=== PATIENT | female | born 1950 | race Caucasian/White ===

== ENCOUNTER 2017-01-16 15:14 | Inpatient (IN) | payer MEDICARE, MEDICAID ==
[~2017-01-16 15:14] MED LIST: Azithromycin 250 MG in Sodium Chloride 0.9% 250 ML IV SCH
[2017-01-16] MEDS ORDERED: Albuterol/Ipratropium 3.0-0.5 MG/3 ML Neb Soln NEB ONE (15:28)
[2017-01-16] MEDS ORDERED: methylPREDNISolone Sodium Succinate 125 MG/2 ML SDV IVPUSH ONE ×2 (15:28→21:00)
[2017-01-16] MEDS ORDERED: Sodium Chloride 0.9% 10 ML Syringe FLUSH PRN (15:28)
[2017-01-16] MEDS ORDERED: Albuterol/Ipratropium 3.0-0.5 MG/3 ML Neb Soln ONE ×2 (15:28)
[2017-01-16] MEDS ORDERED: Albuterol 0.083% 2.5 MG/3 ML Neb Soln NEB ONE (16:07)
--- NOTE | 2017-01-16 16:07 | CR ---
Chest: Portable view of the chest was obtained. Comparison: Previous chest x-ray of 05/20/16. Heart size and mediastinum are within normal limits for portable technique. Lungs are clear. Bony structures are grossly intact. Impression: 1. Nothing acute is appreciated on portable chest x-ray. Diagnostic code #1
--- NOTE | 2017-01-16 16:20 | EDM.PDOC ---
ED HPI GENERAL MEDICAL PROBLEM - General Chief Complaint: Respiratory Problem Stated Complaint: SOB Time Seen by Provider: 01/16/17 15:21 Source of Information: Reports: Patient, RN Notes Reviewed - History of Present Illness INITIAL COMMENTS - FREE TEXT/NARRATIVE: 66-year-old female comes in severely short of breath. She does have history of COPD. She has had worsening cough for the past several days which has become productive of yellowish-green sputum. She has had some chills, not sure about fever. She also states she has had some nasal and sinus congestion and scratchy throat associated with this. Unfortunately she also does continue to smoke. History of insulin-dependent diabetes. No current chest pain other than that associated with frequent coughing. She does use oxygen at night at least some of the time at home. She states that she has had to remain sitting at a chair yesterday and today just to try get enough air. Walking makes the difficulty breathing much worse. She does have history of hypertension. No known history for coronary artery disease. Chest Pain Score (Numeric/FACES): 8 - Related Data Allergies Allergy/AdvReac Type Severity Reaction Status Date / Time insulin detemir Allergy Mild Itching Verified 01/16/17 15:24 [From Levemir] doxycycline Allergy Swelling Verified 01/16/17 15:24 Home Meds: Home Meds Allopurinol [Zyloprim] 0 mg PO DAILY 04/18/15 [History] Aspirin [Sacha Chewable Aspirin] 81 mg PO DAILY 04/18/15 [History] Insulin Glarg,Human.Rec.Analog [LantUS Solostar] 40 units SQ BEDTIME 04/18/15 [ History] Lisinopril 10 mg PO DAILY 04/18/15 [History] Lovastatin 10 mg PO BEDTIME 04/18/15 [History] Meloxicam 15 mg PO DAILY 04/18/15 [History] glipiZIDE [Glipizide ER] 10 mg PO BID 04/18/15 [History] metFORMIN [Glucophage] 1,000 mg PO BID 04/18/15 [History] Fluticasone/Salmeterol [Advair Diskus 250-50] 1 puff INH BID PRN 08/26/15 [ History] Ipratropium/Albuterol Sulfate [Combivent Respimat Inhal [place]] 1 puff INFILT BID PRN 08/26/15 [History] Sertraline [Zoloft] 1 tab PO DAILY 08/26/15 [History] Azelastine HCl [Astepro] 2 inhalation EDE BID #1 ml 08/28/15 [Rx] Acetaminophen/HYDROcodone [[place] 325-5 MG] 1 tab PO Q6H PRN #10 tablet 05/20/16 [Rx] Prednisone [IJD: Prednisone] 20 mg PO QAM #10 tab 05/20/16 [Rx] Past Medical History HEENT History: Reports: Impaired Vision, Retinal Detachment Other HEENT History: states "sometimes" wears eyeglasses. Cardiovascular History: Reports: Hypertension Respiratory History: Reports: Asthma, Bronchitis, Recurrent, COPD, Pneumonia, Recurrent Gastrointestinal History: Reports: None Other Gastrointestinal History: diarrhea past few days Genitourinary History: Reports: Renal Calculus, UTI, Recurrent, Other (See Below ) Other Genitourinary History: states still has kidney stone in one kidney without causing pain or difficulty. 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 GI Surgical History: Reports: Appendectomy, Cholecystectomy Female Surgical History: Reports: Hysterectomy, Lithotripsy/ESWL Musculoskeletal Surgical History: Reports: Arthroscopic Knee, Other (See Below) Social & Family History - Family History Family Medical History: Noncontributory - Tobacco Use Smoking Status *Q: Current Every Day Smoker Years of Tobacco use: 40 Packs/Tins Daily: 1 Used Tobacco, but Quit: No Month Tobacco Last Used: july Second Hand Smoke Exposure: Yes - Caffeine Use Caffeine Use: Reports: Soda - Recreational Drug Use Recreational Drug Use: No ED ROS GENERAL - Review of Systems Review Of Systems: See Below Constitutional: Reports: Fever, Chills (Possible) HEENT: Denies: Throat Pain, Throat Swelling Respiratory: Reports: Shortness of Breath, Wheezing (Severe), Cough, Sputum Cardiovascular: Reports: Chest Pain (With coughing), Lightheadedness, Palpitations Endocrine: Reports: Fatigue GI/Abdominal: Denies: Abdominal Pain, Nausea, Vomiting Musculoskeletal: Reports: No Symptoms Skin: Reports: No Symptoms Neurological: Reports: Dizziness, Difficulty Walking (Due to difficulty breathing) ED EXAM, GENERAL - Physical Exam Exam: See Below General Appearance: Alert, Moderate Distress Eye Exam: Bilateral Eye: PERRL Nose: Normal Inspection Throat/Mouth: Normal Inspection, Normal Oropharynx Head: Atraumatic. No: Facial Swelling Neck: Supple, Full Range of Motion. No: Lymphadenopathy (L), Lymphadenopathy (R ) Respiratory/Chest: Respiratory Distress, Decreased Breath Sounds (Bilateral), Wheezing (Severe), Accessory Muscle Use ( moderate bilateral), Retractions. No : Rales, Rhonchi Cardiovascular: Tachycardia GI/Abdominal: Soft, Non-Tender Back Exam: No: CVA Tenderness (L), CVA Tenderness (R) Extremities: Normal Inspection. No: Pedal Edema, Leg Pain, Increased Warmth, Redness Neurological: Alert, Oriented, No Motor/Sensory Deficits Skin Exam: Warm, Dry, Normal Color EKG INTERPRETATION EKG Date: 01/16/17 Rhythm: NSR Rate (Beats/Min): 105 P-Wave: Present QRS: Normal ST-T: Normal Course - Vital Signs Last Recorded V/S: Last Vital Signs Temp 96.9 F 01/16/17 15:24 Pulse 108 H 01/16/17 15:24 Resp 30 H 01/16/17 15:24 BP 118/80 01/16/17 15:24 Pulse Ox 94 L 01/16/17 16:19 - Orders/Labs/Meds Orders: Active Orders 24 hr Category Date Time Status EKG 12 Lead [EKG Documentation Completion] [RC] STAT Care 01/16/17 15:27 Active Oxygen Therapy [RC] ASDIRECTED Care 01/16/17 15:27 Active Peripheral IV Care [RC] . DIRECTED Care 01/16/17 15:28 Active RT Aerosol Therapy [RC] ASDIRECTED Care 01/16/17 15:28 Active RT Aerosol Therapy [RC] ASDIRECTED Care 01/16/17 16:07 Active Sodium Chloride 0.9% [Saline Flush] Med 01/16/17 15:28 Active 10 ml FLUSH ASDIRECTED PRN Peripheral IV Insertion Adult [OM.PC] Stat Oth 01/16/17 15:28 Ordered Medication Orders Sodium Chloride (Saline Flush) 10 ml FLUSH ASDIRECTED PRN PRN Reason: Keep Vein Open Last Admin: 01/16/17 15:23 Dose: 10 ml Labs: Laboratory Tests 01/16/17 01/16/17 01/16/17 Range/Units 15:25 15:25 15:25 WBC 14.78 H (3.98-10.04) K/mm3 RBC 4.55 (3.98-5.22) M/mm3 Hgb 12.8 (11.2-15.7) gm/L Hct 41.1 (34.1-44.9) % MCV 90.3 (79.4-94.8) fl MCH 28.1 (25.6-32.2) pg MCHC 31.1 L (32.2-35.5) g/dl RDW Std Deviation 49.9 H (36.4-46.3) fL Plt Count 261 (182-369) K/mm3 MPV 10.0 (9.4-12.3) fl Neut % (Auto) 77.7 H (34.0-71.1) % Lymph % (Auto) 13.1 L (19.3-51.7) % [place] % (Auto) 6.2 (4.7-12.5) % Eos % (Auto) 2.6 (0.7-5.8) Baso % (Auto) 0.2 (0.1-1.2) % Neut # (Auto) 11.48 H (1.56-6.13) K/mm3 Lymph # (Auto) 1.94 (1.18-3.74) K/mm3 [place] # (Auto) 0.92 H (0.24-0.36) K/mm3 Eos # (Auto) 0.38 H (0.04-0.36) K/mm3 Baso # (Auto) 0.03 (0.01-0.08) K/mm3 Sodium 137 (136-145) mEq/L Potassium 4.1 (3.5-5.1) mEq/L Chloride 102 (98-107) mEq/L Carbon Dioxide 27 (21-32) mEq/L Anion Gap 12.1 (5-15) BUN 22 H (7-18) mg/dL Creatinine 1.1 H (0.55-1.02) mg/dL Est Cr Clr Drug Dosing 45.27 mL/min Estimated GFR (MDRD) 50 (>60) mL/min BUN/Creatinine Ratio 20.0 H (14-18) Glucose 281 H (80-115) mg/dL Calcium 9.2 (8.5-10.1) mg/dL Total Bilirubin 0.4 (0.2-1.0) mg/dL AST 23 (15-37) U/L ALT 35 (14-59) U/L Alkaline Phosphatase 75 (46-116) U/L C-Reactive Protein 6.6 H* (<1.0) mg/dL Total Protein 7.8 (6.4-8.2) g/dl Albumin 3.6 (3.4-5.0) g/dl Globulin 4.2 gm/dL Albumin/Globulin Ratio 0.9 L (1-2) Meds: Medications Generic Name Dose Route Start Last Admin Trade Name Freq PRN Reason Stop Dose Admin Sodium Chloride 10 ml 01/16/17 15:28 01/16/17 15:23 Saline Flush FLUSH 10 ml ASDIRECTED PRN Administration Keep Vein Open Discontinued Medications Generic Name Dose Route Start Last Admin Trade Name Freq PRN Reason Stop Dose Admin Albuterol 2.5 mg 01/16/17 16:07 01/16/17 16:19 Proventil Neb Soln NEB 01/16/17 16:08 2.5 mg ONETIME ONE Administration Albuterol/Ipratropium Confirm 01/16/17 15:28 01/16/17 15:33 Duoneb 3.0-0.5 Mg/3 Ml Administered 01/16/17 15:29 Not Given Dose 3 ml .ROUTE .STK-MED ONE Albuterol/Ipratropium Confirm 01/16/17 15:28 01/16/17 15:33 Duoneb 3.0-0.5 Mg/3 Ml Administered 01/16/17 15:29 Not Given Dose 3 ml .ROUTE .STK-MED ONE Albuterol/Ipratropium 3 ml 01/16/17 15:28 01/16/17 15:33 Duoneb 3.0-0.5 Mg/3 Ml NEB 01/16/17 15:29 3 ml ONETIME ONE Administration Methylprednisolone Sodium Succinate 125 mg 01/16/17 15:28 01/16/17 15:39 Solu-Medrol IVPUSH 01/16/17 15:29 125 mg ONETIME ONE Administration - Re-Assessments/Exams Free Text/Narrative Re-Assessment/Exam: 01/16/17 16:20 Chest x-ray does not show acute infiltrate, white blood count, C-reactive protein somewhat elevated. Symptoms are compatible with acute exacerbation COPD. Have given a DuoNeb treatment on arrival and also Solu-Medrol 125 mg IV. Repeating an albuterol neb treatment at this time. 01/16/17 17:12 sats of come up with the above treatment and with O2 at 2 L nasal cannula into the 93-95% range. She remains very tachypnic, continues with moderately severe wheezing. She is not a candidate to go home. We'll admit for further treatment. Departure - Departure Time of Disposition: 17:15 Disposition: Admitted As Inpatient 66 Condition: Serious Clinical Impression: COPD exacerbation, Hypoxia - Discharge Information Referrals: Gracy Ashley DO [Primary Care Provider] - Forms: ED Department Discharge ED Communication - Discussed Case With (1) Discussed Case With (1): Admitting Provider (Dr. Bob, decision to admit at about 17:00) - My Orders Last 24 Hours: My Active Orders 01/16/17 15:27 EKG 12 Lead [EKG Documentation Completion] [RC] STAT Oxygen Therapy [RC] ASDIRECTED 01/16/17 15:28 Peripheral IV Care [RC] . DIRECTED RT Aerosol Therapy [RC] ASDIRECTED Sodium Chloride 0.9% [Saline Flush] 10 ml FLUSH ASDIRECTED PRN Peripheral IV Insertion Adult [OM.PC] Stat 01/16/17 16:07 RT Aerosol Therapy [RC] ASDIRECTED - Assessment/Plan Last 24 Hours: My Active Orders 01/16/17 15:27 EKG 12 Lead [EKG Documentation Completion] [RC] STAT Oxygen Therapy [RC] ASDIRECTED 01/16/17 15:28 Peripheral IV Care [RC] . DIRECTED RT Aerosol Therapy [RC] ASDIRECTED Sodium Chloride 0.9% [Saline Flush] 10 ml FLUSH ASDIRECTED PRN Peripheral IV Insertion Adult [OM.PC] Stat 01/16/17 16:07 RT Aerosol Therapy [RC] ASDIRECTED
[2017-01-16] MEDS ORDERED: glipiZIDE 5 MG Tab.ER PO SCH (17:00)
[2017-01-16] MEDS ORDERED: LORazepam 2 MG/ML MDV IVPUSH PRN (17:09)
[2017-01-16] MEDS ORDERED: Metoprolol Tartrate 5 MG/5 ML SDV IVPUSH PRN (17:09)
[2017-01-16] MEDS ORDERED: Azithromycin 250 MG in Sodium Chloride 0.9% 250 ML IV ONE ×2 (17:09→20:15)
[2017-01-16] MEDS ORDERED: hydrALAZINE 20 MG/ML SDV IVPUSH PRN (17:09)
--- NOTE | 2017-01-16 17:09 | PCM.HP ---
H&P History of Present Illness - General Date of Service: 01/16/17 Admit Problem/Dx: COPD Exacerbation Source of Information: Patient, Family, Old Records, Provider, RN Notes Reviewed History Limitations: Reports: No Limitations, Respiratory Distress - History of Present Illness Initial Comments - Free Text/Narative: This is a 66 yo elderly white female with past medical hx/o Impaired Vision, Retinal Detachment, HTN, Hx/o Renal Stones, Hx/o Recurrent UTI, Gout, OA, DM2, Migraines DAVALOS, Anxiety, Depression, and Obesity with BMI of > 30 who presents to the emergency department for worsening shortness of breath. Her chief complaint is associated with productive cough of yellow-greenish sputum, some chills, nasal and sinus congestion, and sore throat. She denies any signs of systemic infection. She carries a history of Asthma/COPD. She is still an smoker. She also carries a history of nocturnal hypoxemia and uses supplemental O2 2L NC at night. Her initial workup in emergency department shows a CBC remarkable for WBC of 14.78, MCHC of 31.1%, RDW of 49.9, neutrophils of 77%, and lymphocytes of 13.1% . Her chemistry is remarkable for BUN of 22, creatinine of 1.1, glucose of 281, and CRP of 6.6. Patient currently is on 3 L nasal cannula with an O2 sat greater than 90%. Her chest x-ray shows no acute abnormal findings. Patient is being admitted for COPD exacerbation. She received initial treatment in the emergency department before she was sent to the floor for further management. She is full code. Chest Pain Score (Numeric/FACES): 8 - Related Data Allergies/Adverse Reactions: Allergies Allergy/AdvReac Type Severity Reaction Status Date / Time insulin detemir Allergy Mild Itching Verified 01/16/17 17:25 [From Levemir] doxycycline Allergy Swelling Verified 01/16/17 17:25 Home Medications: Home Meds Allopurinol [Zyloprim] 0 mg PO DAILY 04/18/15 [History] Aspirin [Sacha Chewable Aspirin] 81 mg PO DAILY 04/18/15 [History] Lisinopril 10 mg PO DAILY 04/18/15 [History] Lovastatin 10 mg PO BEDTIME 04/18/15 [History] Meloxicam 15 mg PO DAILY 04/18/15 [History] glipiZIDE [Glipizide ER] 10 mg PO BID 04/18/15 [History] metFORMIN [Glucophage] 1,000 mg PO BID 04/18/15 [History] Ipratropium/Albuterol Sulfate [Combivent Respimat Inhal [place]] 1 puff INFILT BID PRN 08/26/15 [History] Sertraline [Zoloft] 1 tab PO DAILY 08/26/15 [History] Insulin Degludec [Tresiba Flextouch U-200] 45 unit SQ BEDTIME 01/16/17 [History] Past Medical History HEENT History: Reports: Impaired Vision, Retinal Detachment Other HEENT History: states "sometimes" wears eyeglasses. Cardiovascular History: Reports: Hypertension Respiratory History: Reports: Asthma, Bronchitis, Recurrent, COPD, Pneumonia, Recurrent Gastrointestinal History: Reports: None Other Gastrointestinal History: diarrhea past few days Genitourinary History: Reports: Renal Calculus, UTI, Recurrent, Other (See Below ) Other Genitourinary History: states still has kidney stone in one kidney without causing pain or difficulty. 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 GI Surgical History: Reports: Appendectomy, Cholecystectomy Female Surgical History: Reports: Hysterectomy, Lithotripsy/ESWL Musculoskeletal Surgical History: Reports: Arthroscopic Knee, Other (See Below) Social & Family History - Family History Family Medical History: Noncontributory - Tobacco Use Smoking Status *Q: Current Every Day Smoker Years of Tobacco use: 40 Packs/Tins Daily: 1 Used Tobacco, but Quit: No Month Tobacco Last Used: july Second Hand Smoke Exposure: Yes - Caffeine Use Caffeine Use: Reports: Soda - Recreational Drug Use Recreational Drug Use: No H&P Review of Systems - Review of Systems: Review Of Systems: See Below General: Reports: Other (Sweating at night). Denies: Fever, Chills, Malaise, Weakness, Fatigue Pulmonary: Reports: Shortness of Breath, Cough Cardiovascular: Reports: Dyspnea on Exertion. Denies: Chest Pain, Palpitations , Edema, Lightheadedness Gastrointestinal: Denies: Abdominal Pain, Nausea Genitourinary: Reports: No Symptoms Musculoskeletal: Reports: No Symptoms Skin: Denies: Cyanosis, Pallor Psychiatric: Denies: Depression, Anxiety, Agitation, Hallucinations, Suicidal Ideation Neurological: Denies: Confusion, Difficulty Walking, Weakness, Gait Disturbance Hematologic/Lymphatic: Reports: No Symptoms Immunologic: Reports: No Symptoms Exam - Exam Exam: See Below - Vital Signs Vital Signs: Last Vital Signs Temp 36.1 C 01/16/17 15:24 Pulse 108 H 01/16/17 15:24 Resp 30 H 01/16/17 15:24 BP 118/80 01/16/17 15:24 Pulse Ox 94 L 01/16/17 16:19 Weight: 113.398 kg - Exam Quality Assessment: Supplemental Oxygen General: Alert, Oriented, Cooperative, Mild Distress, Other (Obese) HEENT: Conjunctiva Clear, EACs Clear, EOMI, Hearing Intact, Mucosa Moist & [place] , Nares Patent, Posterior Pharynx Clear, Pupils Equal, Pupils Reactive Neck: Supple, Trachea Midline, Full Range of Motion, Other (no accossory muscle unse). No: JVD Lungs: Normal Respiratory Effort, Wheezing Cardiovascular: Regular Rate, Regular Rhythm, Tachycardia GI/Abdominal Exam: Normal Bowel Sounds, Soft, Non-Tender, No Organomegaly, No Distention, No Abnormal Bruit, No Mass (Female) Exam: Deferred Rectal (Female) Exam: Deferred Back Exam: Normal Inspection, Decreased Range of Motion Extremities: Normal Inspection, Normal Range of Motion, Non-Tender, No Pedal Edema, Normal Capillary Refill Peripheral Pulses: 3+: Posterior Tibial (L), Posterior Tibial (R), Dorsalis Pedis (L), Dorsalis Pedis (R) Skin: Warm, Intact, Moist Neuro Extensive - Mental Status: Oriented x3, Normal Cognition, Memory Intact Neuro Extensive - Motor, Sensory, Reflexes: CN II-XII Intact, Normal Gait Psychiatric: Alert, Normal Affect, Normal Mood - Patient Data Lab Results Last 24 hrs: Laboratory Results - last 24 hr 01/16/17 01/16/17 01/16/17 Range/Units 15:25 15:25 15:25 WBC 14.78 H (3.98-10.04) K/mm3 RBC 4.55 (3.98-5.22) M/mm3 Hgb 12.8 (11.2-15.7) gm/L Hct 41.1 (34.1-44.9) % MCV 90.3 (79.4-94.8) fl MCH 28.1 (25.6-32.2) pg MCHC 31.1 L (32.2-35.5) g/dl RDW Std Deviation 49.9 H (36.4-46.3) fL Plt Count 261 (182-369) K/mm3 MPV 10.0 (9.4-12.3) fl Neut % (Auto) 77.7 H (34.0-71.1) % Lymph % (Auto) 13.1 L (19.3-51.7) % [place] % (Auto) 6.2 (4.7-12.5) % Eos % (Auto) 2.6 (0.7-5.8) Baso % (Auto) 0.2 (0.1-1.2) % Neut # (Auto) 11.48 H (1.56-6.13) K/mm3 Lymph # (Auto) 1.94 (1.18-3.74) K/mm3 [place] # (Auto) 0.92 H (0.24-0.36) K/mm3 Eos # (Auto) 0.38 H (0.04-0.36) K/mm3 Baso # (Auto) 0.03 (0.01-0.08) K/mm3 Sodium 137 (136-145) mEq/L Potassium 4.1 (3.5-5.1) mEq/L Chloride 102 (98-107) mEq/L Carbon Dioxide 27 (21-32) mEq/L Anion Gap 12.1 (5-15) BUN 22 H (7-18) mg/dL Creatinine 1.1 H (0.55-1.02) mg/dL Est Cr Clr Drug Dosing 45.27 mL/min Estimated GFR (MDRD) 50 (>60) mL/min BUN/Creatinine Ratio 20.0 H (14-18) Glucose 281 H (80-115) mg/dL Calcium 9.2 (8.5-10.1) mg/dL Total Bilirubin 0.4 (0.2-1.0) mg/dL AST 23 (15-37) U/L ALT 35 (14-59) U/L Alkaline Phosphatase 75 (46-116) U/L C-Reactive Protein 6.6 H* (<1.0) mg/dL Total Protein 7.8 (6.4-8.2) g/dl Albumin 3.6 (3.4-5.0) g/dl Globulin 4.2 gm/dL Albumin/Globulin Ratio 0.9 L (1-2) Result Diagrams: 01/16/17 15:25 01/16/17 15:25 *Q Meaningful Use (ADM) - VTE *Q VTE Criteria *Q: - Stroke *Q Stroke Criteria *Q: - AMI *Q AMI Criteria *Q: Problem List Initiated/Reviewed/Updated: Yes Orders Last 24hrs: Active Orders 24 hr Category Date Time Status EKG 12 Lead [EKG Documentation Completion] [RC] STAT Care 01/16/17 15:27 Active Oxygen Therapy [RC] ASDIRECTED Care 01/16/17 15:27 Active Peripheral IV Care [RC] . DIRECTED Care 01/16/17 15:28 Active RT Aerosol Therapy [RC] ASDIRECTED Care 01/16/17 15:28 Active RT Aerosol Therapy [RC] ASDIRECTED Care 01/16/17 16:07 Active Sodium Chloride 0.9% [Saline Flush] Med 01/16/17 15:28 Active 10 ml FLUSH ASDIRECTED PRN Peripheral IV Insertion Adult [OM.PC] Stat Oth 01/16/17 15:28 Ordered Medication Orders Sodium Chloride (Saline Flush) 10 ml FLUSH ASDIRECTED PRN PRN Reason: Keep Vein Open Last Admin: 01/16/17 15:23 Dose: 10 ml Assessment/Plan Comment:: Assessment/Plan: Acute: COPD Exacerbation - 2/2 Non-compliance: She stills smokes - Carries 40 yo of smoking - CXR shows no infiltrate - Documented O2 sats all > 90% - She had fast/rapid breathing in ED - IV Steroids, Bronchodilators, IV Magnesium, IV Azithromycin 250 mg Daily, and Supplemental O2 - PRN IV Morphine for Dyspnea Leukocytosis - WBC 14.78 and CRP 6.6 - 2/2 Above DM2 with Hyperglycemia - BS in the 200 range - On Glipizide, Metformin and Insulin regimen - A1C in AM - Accucheck-QID/HS and ISS coverage Tobacco Abuse - Nicotine Patch Daily - Counseled on Smoking Cessation Chronic: Impaired Vision, Retinal Detachment HTN COPD/Asthma Nocturnal Hypoxemia, Uses 2L of O2 at night Hx/o Renal Stones Hx/o Recurrent UTI GOUT OA DM2 Migraines DAVALOS Anxiety Depression Obesity with BMI of 41.6 Plan: Admit to Med-Surg Routine AM Resume Home Meds Supplemental 2L O2 at night PT/OT/RT consult Dietary and Diabetic Education Consult CM/JOSH for d/c planning Code status: 1
[2017-01-16] MEDS ORDERED: Ondansetron 4 MG/2 ML SDV IV PRN (17:10)
[2017-01-16] MEDS ORDERED: Magnesium Hydroxide 400 MG/5 ML Susp 30 ML Cup PO PRN (17:10)
[2017-01-16] MEDS ORDERED: Temazepam 7.5 MG Cap PO PRN (17:10)
[2017-01-16] MEDS ORDERED: LORazepam 2 MG/ML MDV IV PRN (17:10)
[2017-01-16] MEDS ORDERED: Bisacodyl 5 MG Tab PO PRN (17:10)
[2017-01-16] MEDS ORDERED: Docusate Sodium 100 MG Cap PO PRN (17:10)
[2017-01-16] MEDS ORDERED: Promethazine 12.5 MG in Sodium Chloride 0.9% 50 ML IV PRN (17:10)
[2017-01-16] MEDS ORDERED: Polyethylene Glycol 3350 Powder 17 GM Packet PO PRN (17:10)
[2017-01-16] MEDS ORDERED: Magnesium Sulfate/Water 2 GM in Premix Bag 1 BAG IV ONE (17:24)
[2017-01-16] MEDS: methylPREDNISolone Sodium Succinate 125 MG/2 ML SDV IVPUSH SCH (17:53)
[2017-01-16] MEDS: Morphine 2 MG/ML Syringe IVPUSH PRN (18:50)
[2017-01-16] MEDS ORDERED: Nicotine 21 MG/24 Hr Patch TRDERM ONE (19:11)
[2017-01-16] MEDS ORDERED: 50% Dextrose in Water 50 ML Syringe IVPUSH PRN (19:12)
[2017-01-16] MEDS ORDERED: Albuterol 6.7 GM Inhaler INH PRN (19:13)
[2017-01-16] MEDS: Insulin Aspart 100 Units/ML 3 ML Pen SUBCUT SCH ×2 (19:50→22:22)
[2017-01-16] MEDS: Simvastatin 10 MG Tab PO SCH (20:46)
[2017-01-16] MEDS: metFORMIN 500 MG Tab PO SCH (20:46)
[2017-01-16] MEDS: Albuterol/Ipratropium 3.0-0.5 MG/3 ML Neb Soln NEB PRN (21:29)
[2017-01-17] MEDS ORDERED: methylPREDNISolone Sodium Succinate 125 MG/2 ML SDV IVPUSH SCH ×4 (06:00→08:00)
[2017-01-17] MEDS: methylPREDNISolone Sodium Succinate 125 MG/2 ML SDV IVPUSH SCH ×3 (06:46→21:55)
[2017-01-17] MEDS ORDERED: Tiotropium Inhaler 18 MCG Inhalation Powder Cap Kit of 5 INH PRN (08:24)
[2017-01-17] MEDS: INSULIN DEGLUDEC 45 UNIT SUBCUT SCH ×2 (08:27→21:22)
[2017-01-17] MEDS: Albuterol/Ipratropium 3.0-0.5 MG/3 ML Neb Soln NEB PRN ×5 (08:36→23:54)
[2017-01-17] MEDS: Insulin Aspart 100 Units/ML 3 ML Pen SUBCUT SCH ×4 (09:06→21:54)
[2017-01-17] MEDS: Nicotine 21 MG/24 Hr Patch TRDERM SCH (09:07)
[2017-01-17] MEDS: Aspirin 81 MG Tab.EC PO SCH (09:07)
[2017-01-17] MEDS: metFORMIN 500 MG Tab PO SCH ×2 (09:07→21:01)
[2017-01-17] MEDS: Sertraline 50 MG Tab PO SCH (09:08)
[2017-01-17] MEDS: Allopurinol 100 MG Tab PO SCH (09:08)
[2017-01-17] MEDS: Lisinopril 10 MG Tab PO SCH (09:08)
[2017-01-17] MEDS: Morphine 2 MG/ML Syringe IVPUSH PRN ×3 (09:18→21:00)
--- NOTE | 2017-01-17 11:21 | PCM.PN ---
- General Info Date of Service: 01/17/17 Admission Dx/Problem (Free Text): COPD Exacerbation Subjective Update: Follow Up Functional Status: Reports: Pain Controlled, Tolerating Diet, Ambulating, Urinating - Review of Systems General: Denies: Fever, Weakness, Fatigue, Malaise, Chills HEENT: Reports: No Symptoms Pulmonary: Reports: Shortness of Breath, Cough, Wheezing Cardiovascular: Denies: Chest Pain, Dyspnea on Exertion, Edema Gastrointestinal: Denies: Abdominal Pain, Nausea, Vomiting Genitourinary: Reports: No Symptoms Musculoskeletal: Reports: No Symptoms Skin: Denies: Cyanosis Neurological: Denies: Confusion, Pre-Existing Deficit, Difficulty Walking, Weakness, Gait Disturbance Psychiatric: Denies: Depression, Anxiety, Agitation, Cravings, Hallucinations, Suicidal Ideation Systems Review Comment:: No significant overnight or acute issues. She states she feels a little better. She slept good. She has no new complaints. - Patient Data Vitals - Most Recent: Last Vital Signs Temp 36.1 C 01/17/17 07:52 Pulse 75 01/17/17 07:52 Resp 18 01/17/17 07:52 BP 137/64 01/17/17 09:08 Pulse Ox 92 L 01/17/17 11:07 Weight - Most Recent: 109.361 kg I&O - Last 24 Hours: Intake & Output 01/16/17 01/17/17 01/17/17 22:59 06:59 14:59 Intake Total 525 120 Output Total 650 Balance -125 120 Lab Results Last 24 Hours: Laboratory Results - last 24 hr 01/16/17 01/16/17 01/17/17 Range/Units 19:47 20:08 05:37 WBC (3.98-10.04) K/mm3 RBC (3.98-5.22) M/mm3 Hgb (11.2-15.7) gm/L Hct (34.1-44.9) % MCV (79.4-94.8) fl MCH (25.6-32.2) pg MCHC (32.2-35.5) g/dl RDW Std Deviation (36.4-46.3) fL Plt Count (182-369) K/mm3 MPV (9.4-12.3) fl Neut % (Auto) (34.0-71.1) % Lymph % (Auto) (19.3-51.7) % Hall % (Auto) (4.7-12.5) % Eos % (Auto) (0.7-5.8) Baso % (Auto) (0.1-1.2) % Neut # (Auto) (1.56-6.13) K/mm3 Lymph # (Auto) (1.18-3.74) K/mm3 Hall # (Auto) (0.24-0.36) K/mm3 Eos # (Auto) (0.04-0.36) K/mm3 Baso # (Auto) (0.01-0.08) K/mm3 Manual Slide Review Sodium 137 (136-145) mEq/L Potassium 5.0 (3.5-5.1) mEq/L Chloride 102 (98-107) mEq/L Carbon Dioxide 23 (21-32) mEq/L Anion Gap 17.0 H (5-15) BUN 24 H (7-18) mg/dL Creatinine 1.0 (0.55-1.02) mg/dL Est Cr Clr Drug Dosing 49.80 mL/min Estimated GFR (MDRD) 55 (>60) mL/min BUN/Creatinine Ratio 24.0 H (14-18) Glucose 220 H (80-115) mg/dL POC Glucose 251 H 259 H (80-115) mg/dL Hemoglobin A1c (4.50-6.20) % Calcium 9.3 (8.5-10.1) mg/dL Magnesium 2.1 (1.8-2.4) mg/dl C-Reactive Protein 5.3 H* (<1.0) mg/dL 01/17/17 01/17/17 01/17/17 Range/Units 05:48 05:53 05:53 WBC 11.26 H (3.98-10.04) K/mm3 RBC 4.26 (3.98-5.22) M/mm3 Hgb 12.2 (11.2-15.7) gm/L Hct 38.9 (34.1-44.9) % MCV 91.3 (79.4-94.8) fl MCH 28.6 (25.6-32.2) pg MCHC 31.4 L (32.2-35.5) g/dl RDW Std Deviation 48.5 H (36.4-46.3) fL Plt Count 216 (182-369) K/mm3 MPV 11.2 (9.4-12.3) fl Neut % (Auto) 88.1 H (34.0-71.1) % Lymph % (Auto) 9.3 L (19.3-51.7) % Hall % (Auto) 2.2 L (4.7-12.5) % Eos % (Auto) 0 L (0.7-5.8) Baso % (Auto) 0.1 (0.1-1.2) % Neut # (Auto) 9.92 H (1.56-6.13) K/mm3 Lymph # (Auto) 1.05 L (1.18-3.74) K/mm3 Hall # (Auto) 0.25 (0.24-0.36) K/mm3 Eos # (Auto) 0.00 L (0.04-0.36) K/mm3 Baso # (Auto) 0.01 (0.01-0.08) K/mm3 Manual Slide Review Abnormal smear Sodium (136-145) mEq/L Potassium (3.5-5.1) mEq/L Chloride (98-107) mEq/L Carbon Dioxide (21-32) mEq/L Anion Gap (5-15) BUN (7-18) mg/dL Creatinine (0.55-1.02) mg/dL Est Cr Clr Drug Dosing mL/min Estimated GFR (MDRD) (>60) mL/min BUN/Creatinine Ratio (14-18) Glucose (80-115) mg/dL POC Glucose 200 H (80-115) mg/dL Hemoglobin A1c 7.40 H (4.50-6.20) % Calcium (8.5-10.1) mg/dL Magnesium (1.8-2.4) mg/dl C-Reactive Protein (<1.0) mg/dL 01/17/17 Range/Units 10:55 WBC (3.98-10.04) K/mm3 RBC (3.98-5.22) M/mm3 Hgb (11.2-15.7) gm/L Hct (34.1-44.9) % MCV (79.4-94.8) fl MCH (25.6-32.2) pg MCHC (32.2-35.5) g/dl RDW Std Deviation (36.4-46.3) fL Plt Count (182-369) K/mm3 MPV (9.4-12.3) fl Neut % (Auto) (34.0-71.1) % Lymph % (Auto) (19.3-51.7) % Hall % (Auto) (4.7-12.5) % Eos % (Auto) (0.7-5.8) Baso % (Auto) (0.1-1.2) % Neut # (Auto) (1.56-6.13) K/mm3 Lymph # (Auto) (1.18-3.74) K/mm3 Hall # (Auto) (0.24-0.36) K/mm3 Eos # (Auto) (0.04-0.36) K/mm3 Baso # (Auto) (0.01-0.08) K/mm3 Manual Slide Review Sodium (136-145) mEq/L Potassium (3.5-5.1) mEq/L Chloride (98-107) mEq/L Carbon Dioxide (21-32) mEq/L Anion Gap (5-15) BUN (7-18) mg/dL Creatinine (0.55-1.02) mg/dL Est Cr Clr Drug Dosing mL/min Estimated GFR (MDRD) (>60) mL/min BUN/Creatinine Ratio (14-18) Glucose (80-115) mg/dL POC Glucose 297 H (80-115) mg/dL Hemoglobin A1c (4.50-6.20) % Calcium (8.5-10.1) mg/dL Magnesium (1.8-2.4) mg/dl C-Reactive Protein (<1.0) mg/dL Med Orders - Current: Current Medications Acetaminophen (Tylenol) 650 mg PO Q4H PRN PRN Reason: Pain (Mild 1-3)/fever Hydrocodone Bitart/Acetaminophen ([place] 325-5 Mg) 1 tab PO Q4H PRN PRN Reason: Pain (moderate 4-6) Albuterol (Proventil Hfa) 0 gm INH BID PRN PRN Reason: Dyspnea Albuterol/Ipratropium (Duoneb 3.0-0.5 Mg/3 Ml) 3 ml NEB Q4H PRN PRN Reason: Shortness Of Breath/wheezing Last Admin: 01/17/17 11:07 Dose: 3 ml Allopurinol (Zyloprim) 100 mg PO DAILY [facility] Last Admin: 01/17/17 09:08 Dose: 100 mg Aspirin (Halfprin) 81 mg PO DAILY [facility] Last Admin: 01/17/17 09:07 Dose: 81 mg Bisacodyl (Dulcolax) 5 mg PO DAILY PRN PRN Reason: Constipation Dextrose/Water (Dextrose 50% In Water) 50 ml IVPUSH ASDIRECTED PRN PRN Reason: Hypoglycemia Docusate Sodium (Colace) 100 mg PO BID PRN PRN Reason: Constipation Glipizide (Glucotrol Xl) 10 mg PO BIDMEALS [facility] Hydralazine HCl (Apresoline) 20 mg IVPUSH Q4H PRN PRN Reason: Hypertension Promethazine HCl 12.5 mg/ (Sodium Chloride) 50.5 mls @ 100 mls/hr IV Q6H PRN PRN Reason: Nausea/Vomiting Azithromycin 250 mg/ Sodium (Chloride) 250 mls @ 250 mls/hr IV Q24H [facility] Insulin Aspart (Novolog) 0 unit SUBCUT QIDACANDBED [facility] PRN Reason: Protocol Last Admin: 01/17/17 09:06 Dose: 6 units Lisinopril (Prinivil) 10 mg PO DAILY [facility] Last Admin: 01/17/17 09:08 Dose: 10 mg Lorazepam (Ativan) 2 mg IVPUSH Q4H PRN PRN Reason: Seizures Lorazepam (Ativan) 1 mg IV Q6H PRN PRN Reason: Anxiety Magnesium Hydroxide (Milk Of Magnesia) 30 ml PO Q12H PRN PRN Reason: Constipation Magnesium Sulfate (Pharmacy To Dose - Magnesium Replacement) 1 dose .XX ASDIRECTED [facility] Metformin HCl (Glucophage) 1,000 mg PO BID [facility] Last Admin: 01/17/17 09:07 Dose: 1,000 mg Methylprednisolone Sodium Succinate (Solu-Medrol) 80 mg IVPUSH Q8H [facility] Last Admin: 01/17/17 06:46 Dose: 80 mg Metoprolol Tartrate (Lopressor) 5 mg IVPUSH Q4H PRN PRN Reason: Tachycardia Morphine Sulfate (Morphine) 2 mg IVPUSH Q4H PRN PRN Reason: other Nicotine (Habitrol) 21 mg TRDERM DAILY [facility] Last Admin: 01/17/17 09:07 Dose: 21 mg Ondansetron HCl (Zofran) 4 mg IV Q6H PRN PRN Reason: Nausea/Vomiting Insulin Degludec 45 (Units (Tresiba)) 0 each SUBCUT BEDTIME [facility] Last Admin: 01/17/17 08:27 Dose: Not Given Polyethylene Glycol (Miralax) 17 gm PO DAILY PRN PRN Reason: Constipation Potassium Chloride (Pharmacy To Dose - Potassium Replacement) 1 dose .XX ASDIRECTED [facility] Senna/Docusate Sodium (Senna Plus) 1 tab PO BID PRN PRN Reason: Constipation Sertraline HCl (Zoloft) 50 mg PO DAILY [facility] Last Admin: 01/17/17 09:08 Dose: 50 mg Simvastatin (Zocor) 5 mg PO BEDTIME [facility] Last Admin: 01/16/17 20:46 Dose: 5 mg Sodium Chloride (Saline Flush) 10 ml FLUSH ASDIRECTED PRN PRN Reason: Keep Vein Open Last Admin: 01/16/17 15:23 Dose: 10 ml Temazepam (Restoril) 7.5 mg PO BEDTIME PRN PRN Reason: Sleep Tiotropium [place] (Spiriva Handihaler) 18 mcg INH DAILY PRN PRN Reason: Dyspnea Discontinued Medications Albuterol (Proventil Neb Soln) 2.5 mg NEB ONETIME ONE Stop: 01/16/17 16:08 Last Admin: 01/16/17 16:19 Dose: 2.5 mg Albuterol/Ipratropium (Duoneb 3.0-0.5 Mg/3 Ml) Confirm Administered Dose 3 ml .ROUTE .STK-MED ONE Stop: 01/16/17 15:29 Last Admin: 01/16/17 15:33 Dose: Not Given Albuterol/Ipratropium (Duoneb 3.0-0.5 Mg/3 Ml) Confirm Administered Dose 3 ml .ROUTE .STK-MED ONE Stop: 01/16/17 15:29 Last Admin: 01/16/17 15:33 Dose: Not Given Albuterol/Ipratropium (Duoneb 3.0-0.5 Mg/3 Ml) 3 ml NEB ONETIME ONE Stop: 01/16/17 15:29 Last Admin: 01/16/17 15:33 Dose: 3 ml Azithromycin 250 mg/ Sodium (Chloride) 250 mls @ 250 mls/hr IV ONETIME ONE Stop: 01/16/17 18:08 Last Admin: 01/16/17 20:27 Dose: Not Given Azithromycin 250 mg/ Sodium (Chloride) 250 mls @ 250 mls/hr IV Q24H [facility] Last Admin: 01/16/17 17:53 Dose: Not Given Magnesium Sulfate 2 gm/ Premix 50 mls @ 25 mls/hr IV ONETIME ONE Stop: 01/16/17 19:23 Last Admin: 01/16/17 18:49 Dose: 25 mls/hr Azithromycin 250 mg/ Sodium (Chloride) 250 mls @ 250 mls/hr IV ONETIME ONE Stop: 01/16/17 21:14 Last Admin: 01/16/17 20:46 Dose: 250 mls/hr Methylprednisolone Sodium Succinate (Solu-Medrol) 125 mg IVPUSH ONETIME ONE Stop: 01/16/17 15:29 Last Admin: 01/16/17 15:39 Dose: 125 mg Methylprednisolone Sodium Succinate (Solu-Medrol) 125 mg IVPUSH ONETIME ONE Stop: 01/16/17 21:01 Last Admin: 01/16/17 20:46 Dose: 125 mg Methylprednisolone Sodium Succinate (Solu-Medrol) 125 mg IVPUSH Q8H [facility] Last Admin: 01/16/17 17:53 Dose: Not Given Methylprednisolone Sodium Succinate (Solu-Medrol) 125 mg IVPUSH Q8H [facility] Methylprednisolone Sodium Succinate (Solu-Medrol) 80 mg IVPUSH Q8H [facility] Methylprednisolone Sodium Succinate (Solu-Medrol) 125 mg IVPUSH Q8H [facility] Methylprednisolone Sodium Succinate (Solu-Medrol) 80 mg IVPUSH Q8H [facility] Morphine Sulfate (Morphine) 1 mg IVPUSH Q4H PRN PRN Reason: Other Stop: 01/17/17 17:13 Last Admin: 01/17/17 09:18 Dose: 1 mg Nicotine (Habitrol) 21 mg TRDERM ONETIME ONE Stop: 01/16/17 19:12 Last Admin: 01/16/17 19:53 Dose: 21 mg - Exam Quality Assessment: Supplemental Oxygen General: Alert, Oriented, Cooperative, No Acute Distress, Other (Obese) HEENT: Pupils Equal, Pupils Reactive, EOMI, Mucous Membr. Moist/[place] Neck: Supple, Trachea Midline, No JVD, Other (short and thick) Lungs: Wheezing, Other (Audible wheezing). No: Normal Respiratory Effort Cardiovascular: Regular Rate, Regular Rhythm GI/Abdominal Exam: Normal Bowel Sounds, Soft, Non-Tender, No Organomegaly, No Distention, No Abnormal Bruit, No Mass (Female) Exam: Deferred Back Exam: Normal Inspection, Decreased Range of Motion Extremities: Normal Inspection, Normal Range of Motion, Non-Tender, No Pedal Edema, Normal Capillary Refill Peripheral Pulses: 2+: Dorsalis Pedis (L), Dorsalis Pedis (R) Skin: Warm, Dry, Intact Neurological: No New Focal Deficit Psy/Mental Status: Alert, Normal Affect, Normal Mood. No: Anxious, Depressed, Agitated, Suicidal Ideation, Homicidal Ideation, Hallucinations, Withdrawal Symptoms - Problem List Review Problem List Initiated/Reviewed/Updated: Yes - My Orders Last 24 Hours: My Active Orders 01/16/17 17:00 glipiZIDE [Glucotrol XL] 10 mg PO BIDMEALS 01/16/17 18:34 Pulse Oximetry Continuous Monitoring [OM.PC] Routine 01/16/17 19:12 Blood Glucose Check, Bedside [RC] QIDACANDBED Dextrose 50% in Water 50 ml IVPUSH ASDIRECTED PRN 01/16/17 19:13 Albuterol [Proventil HFA] 0 gm INH BID PRN 01/16/17 19:15 Insulin Aspart [NovoLOG] See Protocol SUBCUT QIDACANDBED 01/16/17 21:00 Patient's Own Medication [Ptom] 0 each SUBCUT BEDTIME Simvastatin [Zocor] 5 mg PO BEDTIME metFORMIN [Glucophage] 1,000 mg PO BID 01/16/17 23:22 Consult to Streetcar Dispatcher [Consult to Diabetic Nurse Specialist] [CONS] Routine Consult to Coke Inspector [CONS] Routine 01/17/17 06:00 methylPREDNISolone Sod Succ [Solu-MEDROL] 80 mg IVPUSH Q8H 01/17/17 08:24 Tiotropium [Spiriva HandiHaler] 18 mcg INH DAILY PRN 01/17/17 09:00 Allopurinol [Zyloprim] 100 mg PO DAILY Aspirin [Halfprin] 81 mg PO DAILY Lisinopril [Prinivil] 10 mg PO DAILY Nicotine [Habitrol] 21 mg TRDERM DAILY Sertraline [Zoloft] 50 mg PO DAILY 01/17/17 11:11 Morphine 2 mg IVPUSH Q4H PRN - Plan Plan:: Assessment/Plan: Acute: COPD Exacerbation, Marginally Improved - 2/2 Non-compliance: She stills smokes - Carries 40 yo of smoking - CXR shows no infiltrate - Documented O2 sats all > 90% - She had fast/rapid breathing in ED, improved respiratory rate - Continue IV Steroids, Bronchodilators, IV Azithromycin 250 mg Daily, and Supplemental O2 - Mag-Ox 400 mg po BID first dose tonight - PRN IV Morphine for Dyspnea-increased Morphine dose to 2 mg from 1 mg Leukocytosis - WBC 14.78 ---> 11.26 - CRP 6.6 ---> 5.3 - 2/2 Above DM2 with Hyperglycemia - BS in the 200 range - On Glipizide, Metformin and Insulin regimen - A1C is 7.40 - Accucheck-QID/HS and ISS coverage Tobacco Abuse - Nicotine Patch Daily - Counseled on Smoking Cessation Chronic: Impaired Vision, Retinal Detachment HTN COPD/Asthma Nocturnal Hypoxemia, Uses 2L of O2 at night Hx/o Renal Stones Hx/o Recurrent UTI GOUT OA DM2 Migraines DAVALOS Anxiety Depression Obesity with BMI of 41.6 Plan: She is essentially although she states she feels better Routine AM Continue current treatment Consider Aminophylline drip if no response to current treatment Continue PT/OT/RT Dietary and Diabetic Education Consult CM/SW for d/c planning Code status: 1
[2017-01-17] MEDS: Azithromycin 250 MG in Sodium Chloride 0.9% 250 ML IV SCH (17:18)
[2017-01-17] MEDS: glipiZIDE 5 MG Tab.ER PO SCH (17:18)
--- NOTE | 2017-01-17 18:19 | PCM.SN ---
- Free Text/Narrative Note: Patient seen and examined at bedside. She is breathing better and w/o audible wheezing. Morphine did help a lot with her shortness of breath/dyspnea. Will continue to closely monitor her for impending respiratory distress/failure.
[2017-01-17] MEDS: Magnesium Oxide 400 MG Tab PO SCH (21:01)
[2017-01-17] MEDS: Simvastatin 10 MG Tab PO SCH (21:01)
[2017-01-18] MEDS: Morphine 2 MG/ML Syringe IVPUSH PRN ×4 (01:27→21:40)
[2017-01-18] MEDS: methylPREDNISolone Sodium Succinate 125 MG/2 ML SDV IVPUSH SCH ×3 (06:49→21:34)
[2017-01-18] MEDS: glipiZIDE 5 MG Tab.ER PO SCH ×2 (06:49→17:03)
[2017-01-18] MEDS: Insulin Aspart 100 Units/ML 3 ML Pen SUBCUT SCH ×5 (06:54→22:21)
[2017-01-18] MEDS: Albuterol/Ipratropium 3.0-0.5 MG/3 ML Neb Soln NEB PRN ×4 (07:32→20:26)
--- NOTE | 2017-01-18 08:33 | CR ---
Chest: Portable view of the chest was obtained. Comparison: Previous chest x-ray of 01/16/17. Heart size and mediastinum are within normal limits for portable technique. Slight increased density is noted within the left midlung most likely representing atelectasis. Central lung markings are mildly increased which appear stable. Bony structures are grossly intact. Impression: 1. Slight increased density of the left midlung most likely representing atelectasis. 2. Other findings which are felt to be stable from previous chest x-ray. Nothing acute is appreciated. Diagnostic code #2
--- NOTE | 2017-01-18 09:37 | PCM.PN ---
<Carri Williamson - Last Filed: 01/18/17 12:02> - General Info Date of Service: 01/18/17 Functional Status: Reports: Pain Controlled, Ambulating - Review of Systems General: Reports: No Symptoms HEENT: Reports: Headaches (temporal bilateral and in occipital region) Pulmonary: Reports: Shortness of Breath, Cough (worse at night), Sputum Cardiovascular: Reports: No Symptoms Gastrointestinal: Reports: No Symptoms Genitourinary: Reports: No Symptoms Musculoskeletal: Reports: Other (pain anterior lower left ribcage. Pain is worse when she coughs) Skin: Reports: No Symptoms Neurological: Reports: No Symptoms Psychiatric: Reports: No Symptoms Systems Review Comment:: She states she did not sleep well last night due to the shortness of breath and coughing. She feels that the cough is worse at night. She has been producing yellow sputum. She was able to ambulate through the halls this morning. She has had pain on her left anterior lower ribcage that is worse when she coughs. This started before she presented to the ER. She says she has had headaches off and on since coming to the hospital. Today the headache is in her temporal region bilaterally and in her occipital region. She says the morphine sometimes helps with this pain. - Patient Data Vitals - Most Recent: Last Vital Signs Temp 98.6 F 01/18/17 07:44 Pulse 86 01/18/17 07:44 Resp 14 01/18/17 07:44 BP 132/89 01/18/17 07:44 Pulse Ox 94 L 01/18/17 07:44 Weight - Most Recent: 110.903 kg I&O - Last 24 Hours: Intake & Output 01/17/17 01/18/17 01/18/17 22:59 06:59 14:59 Intake Total 1200 950 Output Total 400 350 Balance 800 600 Lab Results Last 24 Hours: Laboratory Results - last 24 hr 01/17/17 01/17/17 01/17/17 Range/Units 10:55 16:33 21:05 WBC (3.98-10.04) K/mm3 RBC (3.98-5.22) M/mm3 Hgb (11.2-15.7) gm/L Hct (34.1-44.9) % MCV (79.4-94.8) fl MCH (25.6-32.2) pg MCHC (32.2-35.5) g/dl RDW Std Deviation (36.4-46.3) fL Plt Count (182-369) K/mm3 MPV (9.4-12.3) fl Neut % (Auto) (34.0-71.1) % Lymph % (Auto) (19.3-51.7) % [place] % (Auto) (4.7-12.5) % Eos % (Auto) (0.7-5.8) Baso % (Auto) (0.1-1.2) % Neut # (Auto) (1.56-6.13) K/mm3 Lymph # (Auto) (1.18-3.74) K/mm3 [place] # (Auto) (0.24-0.36) K/mm3 Eos # (Auto) (0.04-0.36) K/mm3 Baso # (Auto) (0.01-0.08) K/mm3 Manual Slide Review Sodium (136-145) mEq/L Potassium (3.5-5.1) mEq/L Chloride (98-107) mEq/L Carbon Dioxide (21-32) mEq/L Anion Gap (5-15) BUN (7-18) mg/dL Creatinine (0.55-1.02) mg/dL Est Cr Clr Drug Dosing mL/min Estimated GFR (MDRD) (>60) mL/min BUN/Creatinine Ratio (14-18) Glucose (80-115) mg/dL POC Glucose 297 H 216 H 246 H (80-115) mg/dL Calcium (8.5-10.1) mg/dL Magnesium (1.8-2.4) mg/dl C-Reactive Protein (<1.0) mg/dL 01/18/17 01/18/17 01/18/17 Range/Units 05:22 05:22 06:18 WBC 17.29 H (3.98-10.04) K/mm3 RBC 4.09 (3.98-5.22) M/mm3 Hgb 11.6 (11.2-15.7) gm/L Hct 37.3 (34.1-44.9) % MCV 91.2 (79.4-94.8) fl MCH 28.4 (25.6-32.2) pg MCHC 31.1 L (32.2-35.5) g/dl RDW Std Deviation 49.0 H (36.4-46.3) fL Plt Count 238 (182-369) K/mm3 MPV 10.9 (9.4-12.3) fl Neut % (Auto) 90.6 H (34.0-71.1) % Lymph % (Auto) 5.6 L (19.3-51.7) % [place] % (Auto) 3.5 L (4.7-12.5) % Eos % (Auto) 0 L (0.7-5.8) Baso % (Auto) 0.0 L (0.1-1.2) % Neut # (Auto) 15.66 H (1.56-6.13) K/mm3 Lymph # (Auto) 0.97 L (1.18-3.74) K/mm3 [place] # (Auto) 0.61 H (0.24-0.36) K/mm3 Eos # (Auto) 0.00 L (0.04-0.36) K/mm3 Baso # (Auto) 0.00 L (0.01-0.08) K/mm3 Manual Slide Review Abnormal smear Sodium 137 (136-145) mEq/L Potassium 4.9 (3.5-5.1) mEq/L Chloride 102 (98-107) mEq/L Carbon Dioxide 25 (21-32) mEq/L Anion Gap 14.9 (5-15) BUN 31 H (7-18) mg/dL Creatinine 0.9 (0.55-1.02) mg/dL Est Cr Clr Drug Dosing 55.33 mL/min Estimated GFR (MDRD) > 60 (>60) mL/min BUN/Creatinine Ratio 34.4 H (14-18) Glucose 251 H (80-115) mg/dL POC Glucose 240 H (80-115) mg/dL Calcium 9.2 (8.5-10.1) mg/dL Magnesium 2.0 (1.8-2.4) mg/dl C-Reactive Protein 2.0 H* (<1.0) mg/dL Med Orders - Current: Current Medications Acetaminophen (Tylenol) 650 mg PO Q4H PRN PRN Reason: Pain (Mild 1-3)/fever Hydrocodone Bitart/Acetaminophen ([place] 325-5 Mg) 1 tab PO Q4H PRN PRN Reason: Pain (moderate 4-6) Albuterol (Proventil Hfa) 0 gm INH BID PRN PRN Reason: Dyspnea Albuterol/Ipratropium (Duoneb 3.0-0.5 Mg/3 Ml) 3 ml NEB Q4H PRN PRN Reason: Shortness Of Breath/wheezing Last Admin: 01/18/17 07:32 Dose: 3 ml Allopurinol (Zyloprim) 100 mg PO DAILY [facility] Last Admin: 01/17/17 09:08 Dose: 100 mg Aspirin (Halfprin) 81 mg PO DAILY [facility] Last Admin: 01/17/17 09:07 Dose: 81 mg Bisacodyl (Dulcolax) 5 mg PO DAILY PRN PRN Reason: Constipation Dextrose/Water (Dextrose 50% In Water) 50 ml IVPUSH ASDIRECTED PRN PRN Reason: Hypoglycemia Docusate Sodium (Colace) 100 mg PO BID PRN PRN Reason: Constipation Glipizide (Glucotrol Xl) 10 mg PO BIDMEALS [facility] Last Admin: 01/18/17 06:49 Dose: 10 mg Hydralazine HCl (Apresoline) 20 mg IVPUSH Q4H PRN PRN Reason: Hypertension Promethazine HCl 12.5 mg/ (Sodium Chloride) 50.5 mls @ 100 mls/hr IV Q6H PRN PRN Reason: Nausea/Vomiting Azithromycin 250 mg/ Sodium (Chloride) 250 mls @ 250 mls/hr IV Q24H [facility] Last Admin: 01/17/17 17:18 Dose: 250 mls/hr Insulin Aspart (Novolog) 0 unit SUBCUT QIDACANDBED [facility] PRN Reason: Protocol Last Admin: 01/18/17 06:54 Dose: 6 units Lisinopril (Prinivil) 10 mg PO DAILY [facility] Last Admin: 01/17/17 09:08 Dose: 10 mg Lorazepam (Ativan) 2 mg IVPUSH Q4H PRN PRN Reason: Seizures Lorazepam (Ativan) 1 mg IV Q6H PRN PRN Reason: Anxiety Magnesium Hydroxide (Milk Of Magnesia) 30 ml PO Q12H PRN PRN Reason: Constipation Magnesium Oxide (Magnesium Oxide) 400 mg PO BID [facility] Last Admin: 01/17/17 21:01 Dose: 400 mg Magnesium Sulfate (Pharmacy To Dose - Magnesium Replacement) 1 dose .XX ASDIRECTED [facility] Metformin HCl (Glucophage) 1,000 mg PO BID [facility] Last Admin: 01/17/17 21:01 Dose: 1,000 mg Methylprednisolone Sodium Succinate (Solu-Medrol) 80 mg IVPUSH Q8H [facility] Last Admin: 01/18/17 06:49 Dose: 80 mg Metoprolol Tartrate (Lopressor) 5 mg IVPUSH Q4H PRN PRN Reason: Tachycardia Morphine Sulfate (Morphine) 2 mg IVPUSH Q4H PRN PRN Reason: other Last Admin: 01/18/17 06:58 Dose: 2 mg Nicotine (Habitrol) 21 mg TRDERM DAILY [facility] Last Admin: 01/17/17 09:07 Dose: 21 mg Ondansetron HCl (Zofran) 4 mg IV Q6H PRN PRN Reason: Nausea/Vomiting Insulin Degludec 45 (Units (Tresiba)) 0 each SUBCUT BEDTIME [facility] Last Admin: 01/17/17 21:22 Dose: Not Given Polyethylene Glycol (Miralax) 17 gm PO DAILY PRN PRN Reason: Constipation Potassium Chloride (Pharmacy To Dose - Potassium Replacement) 1 dose .XX ASDIRECTED [facility] Senna/Docusate Sodium (Senna Plus) 1 tab PO BID PRN PRN Reason: Constipation Sertraline HCl (Zoloft) 50 mg PO DAILY [facility] Last Admin: 01/17/17 09:08 Dose: 50 mg Simvastatin (Zocor) 5 mg PO BEDTIME [facility] Last Admin: 01/17/17 21:01 Dose: 5 mg Sodium Chloride (Saline Flush) 10 ml FLUSH ASDIRECTED PRN PRN Reason: Keep Vein Open Last Admin: 01/16/17 15:23 Dose: 10 ml Temazepam (Restoril) 7.5 mg PO BEDTIME PRN PRN Reason: Sleep Tiotropium [place] (Spiriva Handihaler) 18 mcg INH DAILY PRN PRN Reason: Dyspnea Discontinued Medications Albuterol (Proventil Neb Soln) 2.5 mg NEB ONETIME ONE Stop: 01/16/17 16:08 Last Admin: 01/16/17 16:19 Dose: 2.5 mg Albuterol/Ipratropium (Duoneb 3.0-0.5 Mg/3 Ml) Confirm Administered Dose 3 ml .ROUTE .STK-MED ONE Stop: 01/16/17 15:29 Last Admin: 01/16/17 15:33 Dose: Not Given Albuterol/Ipratropium (Duoneb 3.0-0.5 Mg/3 Ml) Confirm Administered Dose 3 ml .ROUTE .STK-MED ONE Stop: 01/16/17 15:29 Last Admin: 01/16/17 15:33 Dose: Not Given Albuterol/Ipratropium (Duoneb 3.0-0.5 Mg/3 Ml) 3 ml NEB ONETIME ONE Stop: 01/16/17 15:29 Last Admin: 01/16/17 15:33 Dose: 3 ml Azithromycin 250 mg/ Sodium (Chloride) 250 mls @ 250 mls/hr IV ONETIME ONE Stop: 01/16/17 18:08 Last Admin: 01/16/17 20:27 Dose: Not Given Azithromycin 250 mg/ Sodium (Chloride) 250 mls @ 250 mls/hr IV Q24H [facility] Last Admin: 01/16/17 17:53 Dose: Not Given Magnesium Sulfate 2 gm/ Premix 50 mls @ 25 mls/hr IV ONETIME ONE Stop: 01/16/17 19:23 Last Admin: 01/16/17 18:49 Dose: 25 mls/hr Azithromycin 250 mg/ Sodium (Chloride) 250 mls @ 250 mls/hr IV ONETIME ONE Stop: 01/16/17 21:14 Last Admin: 01/16/17 20:46 Dose: 250 mls/hr Methylprednisolone Sodium Succinate (Solu-Medrol) 125 mg IVPUSH ONETIME ONE Stop: 01/16/17 15:29 Last Admin: 01/16/17 15:39 Dose: 125 mg Methylprednisolone Sodium Succinate (Solu-Medrol) 125 mg IVPUSH ONETIME ONE Stop: 01/16/17 21:01 Last Admin: 01/16/17 20:46 Dose: 125 mg Methylprednisolone Sodium Succinate (Solu-Medrol) 125 mg IVPUSH Q8H [facility] Last Admin: 01/16/17 17:53 Dose: Not Given Methylprednisolone Sodium Succinate (Solu-Medrol) 125 mg IVPUSH Q8H [place] Methylprednisolone Sodium Succinate (Solu-Medrol) 80 mg IVPUSH Q8H [facility] Methylprednisolone Sodium Succinate (Solu-Medrol) 125 mg IVPUSH Q8H [facility] Methylprednisolone Sodium Succinate (Solu-Medrol) 80 mg IVPUSH Q8H [facility] Morphine Sulfate (Morphine) 1 mg IVPUSH Q4H PRN PRN Reason: Other Stop: 01/17/17 17:13 Last Admin: 01/17/17 09:18 Dose: 1 mg Nicotine (Habitrol) 21 mg TRDERM ONETIME ONE Stop: 01/16/17 19:12 Last Admin: 01/16/17 19:53 Dose: 21 mg - Exam Quality Assessment: Supplemental Oxygen General: Alert, Oriented, Cooperative HEENT: EOMI. No: Pupils Equal (left eye dilated; chronic) Neck: Supple Lungs: Decreased Breath Sounds (left lower lung), Wheezing (expiratory wheezing bilateral) Cardiovascular: Regular Rate, Regular Rhythm GI/Abdominal Exam: Normal Bowel Sounds, Soft, Non-Tender, No Organomegaly, No Distention, No Mass (Female) Exam: Deferred Back Exam: Normal Inspection Extremities: Normal Inspection Skin: Warm, Dry, Intact Neurological: No New Focal Deficit Psy/Mental Status: Alert, Normal Affect, Normal Mood Physical Findings Comments:: She has decreased breath sounds in the lower left lung. She has expiratory wheezing bilaterally. She has tenderness to palpation in the anterior left lower ribcage. Skin over this area is normal, no erythema or swelling. - Problem List Review Problem List Initiated/Reviewed/Updated: Yes - Assessment Assessment:: 1. COPD exacerbation 2. Atelectasis of left lower lung 3. Musculoskeletal pain on anterior left lower ribcage most likely secondary to forceful coughing 4. Diabetes Mellitus type 2 with high glucose levels in the 200's - Plan Plan:: 1. Continue current treatment plan 2. Continue to monitor O2 sat 3. Continue PT/OT and RT 4. Routine care <Lu Bob T - Last Filed: 01/18/17 22:35> - General Info Admission Dx/Problem (Free Text): COPD Exacerbation Subjective Update: Follow Up Functional Status: Reports: Pain Controlled, Tolerating Diet, Ambulating, Urinating - Review of Systems General: Denies: Fever, Weakness, Fatigue, Malaise, Chills HEENT: Reports: Headaches Pulmonary: Reports: Shortness of Breath, Cough, Sputum Cardiovascular: Denies: Chest Pain, Palpitations, Dyspnea on Exertion, Edema, Lightheadedness Gastrointestinal: Denies: Abdominal Pain, Difficulty Swallowing, Nausea, Vomiting Genitourinary: Reports: No Symptoms Musculoskeletal: Reports: Other Skin: Denies: Cyanosis, Jaundice, Mottled, Pallor, Diaphoresis, Pruritis, Rash Neurological: Denies: Confusion, Dizziness, Pre-Existing Deficit, Trouble Speaking, Difficulty Walking, Weakness, Gait Disturbance Psychiatric: Denies: No Symptoms, Confusion, Depression, Mood Lability, Agitation, Cravings, Hallucinations, Suicidal Ideation Systems Review Comment:: No significant overnight or acute issues. She is essentially the same as yesterday. She report HAs with morphine but helps with her breathing. - Patient Data Vitals - Most Recent: Last Vital Signs Temp 36.6 C 01/18/17 14:55 Pulse 96 01/18/17 14:55 Resp 16 01/18/17 14:55 BP 129/55 L 01/18/17 14:55 Pulse Ox 92 L 01/18/17 20:27 I&O - Last 24 Hours: Intake & Output 01/18/17 01/18/17 01/18/17 06:59 14:59 22:59 Intake Total 950 360 950 Output Total 350 2400 Balance 600 360 -1450 Lab Results Last 24 Hours: Laboratory Results - last 24 hr 01/18/17 01/18/17 01/18/17 Range/Units 05:22 05:22 06:18 WBC 17.29 H (3.98-10.04) K/mm3 RBC 4.09 (3.98-5.22) M/mm3 Hgb 11.6 (11.2-15.7) gm/L Hct 37.3 (34.1-44.9) % MCV 91.2 (79.4-94.8) fl MCH 28.4 (25.6-32.2) pg MCHC 31.1 L (32.2-35.5) g/dl RDW Std Deviation 49.0 H (36.4-46.3) fL Plt Count 238 (182-369) K/mm3 MPV 10.9 (9.4-12.3) fl Neut % (Auto) 90.6 H (34.0-71.1) % Lymph % (Auto) 5.6 L (19.3-51.7) % [place] % (Auto) 3.5 L (4.7-12.5) % Eos % (Auto) 0 L (0.7-5.8) Baso % (Auto) 0.0 L (0.1-1.2) % Neut # (Auto) 15.66 H (1.56-6.13) K/mm3 Lymph # (Auto) 0.97 L (1.18-3.74) K/mm3 [place] # (Auto) 0.61 H (0.24-0.36) K/mm3 Eos # (Auto) 0.00 L (0.04-0.36) K/mm3 Baso # (Auto) 0.00 L (0.01-0.08) K/mm3 Manual Slide Review Abnormal smear Sodium 137 (136-145) mEq/L Potassium 4.9 (3.5-5.1) mEq/L Chloride 102 (98-107) mEq/L Carbon Dioxide 25 (21-32) mEq/L Anion Gap 14.9 (5-15) BUN 31 H (7-18) mg/dL Creatinine 0.9 (0.55-1.02) mg/dL Est Cr Clr Drug Dosing 55.33 mL/min Estimated GFR (MDRD) > 60 (>60) mL/min BUN/Creatinine Ratio 34.4 H (14-18) Glucose 251 H (80-115) mg/dL POC Glucose 240 H (80-115) mg/dL Calcium 9.2 (8.5-10.1) mg/dL Magnesium 2.0 (1.8-2.4) mg/dl C-Reactive Protein 2.0 H* (<1.0) mg/dL 01/18/17 01/18/17 01/18/17 Range/Units 11:26 17:00 20:00 WBC (3.98-10.04) K/mm3 RBC (3.98-5.22) M/mm3 Hgb (11.2-15.7) gm/L Hct (34.1-44.9) % MCV (79.4-94.8) fl MCH (25.6-32.2) pg MCHC (32.2-35.5) g/dl RDW Std Deviation (36.4-46.3) fL Plt Count (182-369) K/mm3 MPV (9.4-12.3) fl Neut % (Auto) (34.0-71.1) % Lymph % (Auto) (19.3-51.7) % [place] % (Auto) (4.7-12.5) % Eos % (Auto) (0.7-5.8) Baso % (Auto) (0.1-1.2) % Neut # (Auto) (1.56-6.13) K/mm3 Lymph # (Auto) (1.18-3.74) K/mm3 [place] # (Auto) (0.24-0.36) K/mm3 Eos # (Auto) (0.04-0.36) K/mm3 Baso # (Auto) (0.01-0.08) K/mm3 Manual Slide Review Sodium (136-145) mEq/L Potassium (3.5-5.1) mEq/L Chloride (98-107) mEq/L Carbon Dioxide (21-32) mEq/L Anion Gap (5-15) BUN (7-18) mg/dL Creatinine (0.55-1.02) mg/dL Est Cr Clr Drug Dosing mL/min Estimated GFR (MDRD) (>60) mL/min BUN/Creatinine Ratio (14-18) Glucose (80-115) mg/dL POC Glucose 234 H 287 H 329 H (80-115) mg/dL Calcium (8.5-10.1) mg/dL Magnesium (1.8-2.4) mg/dl C-Reactive Protein (<1.0) mg/dL Med Orders - Current: Current Medications Acetaminophen (Tylenol) 650 mg PO Q4H PRN PRN Reason: Pain (Mild 1-3)/fever Hydrocodone Bitart/Acetaminophen ([place] 325-5 Mg) 1 tab PO Q4H PRN PRN Reason: Pain (moderate 4-6) Albuterol (Proventil Hfa) 0 gm INH BID PRN PRN Reason: Dyspnea Albuterol/Ipratropium (Duoneb 3.0-0.5 Mg/3 Ml) 3 ml NEB Q4H PRN PRN Reason: Shortness Of Breath/wheezing Last Admin: 01/18/17 20:26 Dose: 3 ml Allopurinol (Zyloprim) 100 mg PO DAILY [facility] Last Admin: 01/18/17 10:09 Dose: 100 mg Aspirin (Halfprin) 81 mg PO DAILY [facility] Last Admin: 01/18/17 10:09 Dose: 81 mg Bisacodyl (Dulcolax) 5 mg PO DAILY PRN PRN Reason: Constipation Dextrose/Water (Dextrose 50% In Water) 50 ml IVPUSH ASDIRECTED PRN PRN Reason: Hypoglycemia Docusate Sodium (Colace) 100 mg PO BID PRN PRN Reason: Constipation Glipizide (Glucotrol Xl) 10 mg PO BIDMEALS [facility] Last Admin: 01/18/17 17:03 Dose: 10 mg Hydralazine HCl (Apresoline) 20 mg IVPUSH Q4H PRN PRN Reason: Hypertension Promethazine HCl 12.5 mg/ (Sodium Chloride) 50.5 mls @ 100 mls/hr IV Q6H PRN PRN Reason: Nausea/Vomiting Azithromycin 250 mg/ Sodium (Chloride) 250 mls @ 250 mls/hr IV Q24H [facility] Last Admin: 01/18/17 17:07 Dose: 250 mls/hr Aminophylline 500 mg/ Sodium (Chloride) 500 mls @ 20.833 mls/hr IV ONETIME ONE Stop: 01/19/17 16:59 Last Admin: 01/18/17 17:39 Dose: 20.833 mls/hr Insulin Aspart (Novolog) 0 unit SUBCUT QIDACANDBED [facility] PRN Reason: Protocol Last Admin: 01/18/17 22:21 Dose: Not Given Lisinopril (Prinivil) 10 mg PO DAILY [facility] Last Admin: 01/18/17 10:10 Dose: 10 mg Lorazepam (Ativan) 2 mg IVPUSH Q4H PRN PRN Reason: Seizures Lorazepam (Ativan) 1 mg IV Q6H PRN PRN Reason: Anxiety Magnesium Hydroxide (Milk Of Magnesia) 30 ml PO Q12H PRN PRN Reason: Constipation Magnesium Oxide (Magnesium Oxide) 400 mg PO BID [facility] Last Admin: 01/18/17 22:20 Dose: Not Given Magnesium Sulfate (Pharmacy To Dose - Magnesium Replacement) 1 dose .XX ASDIRECTED [facility] Metformin HCl (Glucophage) 1,000 mg PO BID [facility] Last Admin: 01/18/17 22:20 Dose: Not Given Methylprednisolone Sodium Succinate (Solu-Medrol) 80 mg IVPUSH Q8H [facility] Last Admin: 01/18/17 21:34 Dose: 80 mg Metoprolol Tartrate (Lopressor) 5 mg IVPUSH Q4H PRN PRN Reason: Tachycardia Morphine Sulfate (Morphine) 2 mg IVPUSH Q4H PRN PRN Reason: other Last Admin: 01/18/17 21:40 Dose: 2 mg Nicotine (Habitrol) 21 mg TRDERM DAILY [facility] Last Admin: 01/18/17 10:15 Dose: 21 mg Ondansetron HCl (Zofran) 4 mg IV Q6H PRN PRN Reason: Nausea/Vomiting Insulin Glargine 100 (Units/Ml 3 Ml Pen) 0 each SUBCUT BEDTIME [facility] Last Admin: 01/18/17 20:06 Dose: 45 each Polyethylene Glycol (Miralax) 17 gm PO DAILY PRN PRN Reason: Constipation Potassium Chloride (Pharmacy To Dose - Potassium Replacement) 1 dose .XX ASDIRECTED [facility] Senna/Docusate Sodium (Senna Plus) 1 tab PO BID PRN PRN Reason: Constipation Sertraline HCl (Zoloft) 50 mg PO DAILY [facility] Last Admin: 01/18/17 10:10 Dose: 50 mg Simvastatin (Zocor) 5 mg PO BEDTIME [facility] Last Admin: 01/18/17 22:21 Dose: Not Given Sodium Chloride (Saline Flush) 10 ml FLUSH ASDIRECTED PRN PRN Reason: Keep Vein Open Last Admin: 01/16/17 15:23 Dose: 10 ml Temazepam (Restoril) 7.5 mg PO BEDTIME PRN PRN Reason: Sleep Last Admin: 01/18/17 19:49 Dose: 7.5 mg Theophylline (Theophylline Anhydrous) 200 mg PO BID [facility] Tiotropium [place] (Spiriva Handihaler) 18 mcg INH DAILY PRN PRN Reason: Dyspnea Discontinued Medications Albuterol (Proventil Neb Soln) 2.5 mg NEB ONETIME ONE Stop: 01/16/17 16:08 Last Admin: 01/16/17 16:19 Dose: 2.5 mg Albuterol/Ipratropium (Duoneb 3.0-0.5 Mg/3 Ml) Confirm Administered Dose 3 ml .ROUTE .STK-MED ONE Stop: 01/16/17 15:29 Last Admin: 01/16/17 15:33 Dose: Not Given Albuterol/Ipratropium (Duoneb 3.0-0.5 Mg/3 Ml) Confirm Administered Dose 3 ml .ROUTE .STK-MED ONE Stop: 01/16/17 15:29 Last Admin: 01/16/17 15:33 Dose: Not Given Albuterol/Ipratropium (Duoneb 3.0-0.5 Mg/3 Ml) 3 ml NEB ONETIME ONE Stop: 01/16/17 15:29 Last Admin: 01/16/17 15:33 Dose: 3 ml Azithromycin 250 mg/ Sodium (Chloride) 250 mls @ 250 mls/hr IV ONETIME ONE Stop: 01/16/17 18:08 Last Admin: 01/16/17 20:27 Dose: Not Given Azithromycin 250 mg/ Sodium (Chloride) 250 mls @ 250 mls/hr IV Q24H [facility] Last Admin: 01/16/17 17:53 Dose: Not Given Magnesium Sulfate 2 gm/ Premix 50 mls @ 25 mls/hr IV ONETIME ONE Stop: 01/16/17 19:23 Last Admin: 01/16/17 18:49 Dose: 25 mls/hr Azithromycin 250 mg/ Sodium (Chloride) 250 mls @ 250 mls/hr IV ONETIME ONE Stop: 01/16/17 21:14 Last Admin: 01/16/17 20:46 Dose: 250 mls/hr Aminophylline 325 mg/ Sodium (Chloride) 100 mls @ 200 mls/hr IV ONETIME ONE Stop: 01/18/17 14:59 Last Admin: 01/18/17 14:31 Dose: 200 mls/hr Methylprednisolone Sodium Succinate (Solu-Medrol) 125 mg IVPUSH ONETIME ONE Stop: 01/16/17 15:29 Last Admin: 01/16/17 15:39 Dose: 125 mg Methylprednisolone Sodium Succinate (Solu-Medrol) 125 mg IVPUSH ONETIME ONE Stop: 01/16/17 21:01 Last Admin: 01/16/17 20:46 Dose: 125 mg Methylprednisolone Sodium Succinate (Solu-Medrol) 125 mg IVPUSH Q8H [facility] Last Admin: 01/16/17 17:53 Dose: Not Given Methylprednisolone Sodium Succinate (Solu-Medrol) 125 mg IVPUSH Q8H [facility] Methylprednisolone Sodium Succinate (Solu-Medrol) 80 mg IVPUSH Q8H [facility] Methylprednisolone Sodium Succinate (Solu-Medrol) 125 mg IVPUSH Q8H [facility] Methylprednisolone Sodium Succinate (Solu-Medrol) 80 mg IVPUSH Q8H [facility] Morphine Sulfate (Morphine) 1 mg IVPUSH Q4H PRN PRN Reason: Other Stop: 01/17/17 17:13 Last Admin: 01/17/17 09:18 Dose: 1 mg Nicotine (Habitrol) 21 mg TRDERM ONETIME ONE Stop: 01/16/17 19:12 Last Admin: 01/16/17 19:53 Dose: 21 mg Insulin Degludec 45 (Units (Tresiba)) 0 each SUBCUT BEDTIME [facility] Last Admin: 01/17/17 21:22 Dose: Not Given - Exam Quality Assessment: Supplemental Oxygen General: Alert, Oriented, Cooperative, No Acute Distress HEENT: Pupils Equal, EOMI, Mucous Membr. Moist/[place] Neck: Supple, Trachea Midline, No JVD, No Thyromegaly Lungs: Decreased Breath Sounds, Wheezing. No: Normal Respiratory Effort Cardiovascular: Regular Rate, Regular Rhythm GI/Abdominal Exam: Normal Bowel Sounds, Soft, Non-Tender, No Distention, No Mass (Female) Exam: Deferred Back Exam: Normal Inspection, Decreased Range of Motion Extremities: Normal Inspection, Normal Range of Motion, Non-Tender, No Pedal Edema, Normal Capillary Refill Peripheral Pulses: 2+: Dorsalis Pedis (L), Dorsalis Pedis (R) Skin: Warm, Dry, Intact Neurological: No New Focal Deficit Psy/Mental Status: Alert, Normal Affect, Normal Mood - Problem List Review Problem List Initiated/Reviewed/Updated: Yes - My Orders Last 24 Hours: My Active Orders 01/18/17 17:00 Aminophylline 500 mg Sodium Chloride 0.9% [Normal Saline] 480 ml IV ONETIME 01/18/17 21:00 Patient's Own Medication [Ptom] 0 each SUBCUT BEDTIME 01/19/17 08:00 THEOPHYLLINE [CHEM] Timed 01/19/17 09:00 Theophylline [Theophylline Anhydrous] 200 mg PO BID - Assessment Assessment:: Assessment/Plan: Acute: COPD Exacerbation, Essentially not much improvement - 2/2 Non-compliance: She stills smokes - Carries 40 yo of smoking - CXR shows no infiltrate - Documented O2 sats all > 90% - She had fast/rapid breathing in ED, improved respiratory rate - Continue IV Steroids, Bronchodilators, IV Azithromycin 250 mg Daily, Mag- Ox 400 mg po BIDand Supplemental O2 - PRN IV 2 mg Morphine for Dyspnea - Consider Aminophylline drip later today Leukocytosis - WBC 14.78 ---> 11.26 --> 17.29 - CRP 6.6 ---> 5.3 --> 2.0 - 2/2 Above DM2 with Hyperglycemia - BS in the 200-300a - On Glipizide, Metformin and Insulin regimen - A1C is 7.40 - Accu-check QID/HS - Change ISS level to High dose coverage Tobacco Abuse - Nicotine Patch Daily - Counseled on Smoking Cessation Chronic: Impaired Vision, Retinal Detachment HTN COPD/Asthma Nocturnal Hypoxemia, Uses 2L of O2 at night Hx/o Renal Stones Hx/o Recurrent UTI GOUT OA DM2 Migraines DAVALOS Anxiety Depression Obesity with BMI of 41.6 - Plan Plan:: Plan: She is essentially the same Routine AM Continue current treatment Consider Aminophylline drip later today Continue PT/OT/RT CM/SW for d/c planning Additional orders as above Code status: 1
[2017-01-18] MEDS: metFORMIN 500 MG Tab PO SCH ×3 (10:08→22:20)
[2017-01-18] MEDS: Aspirin 81 MG Tab.EC PO SCH (10:09)
[2017-01-18] MEDS: Allopurinol 100 MG Tab PO SCH (10:09)
[2017-01-18] MEDS: Lisinopril 10 MG Tab PO SCH (10:10)
[2017-01-18] MEDS: Sertraline 50 MG Tab PO SCH (10:10)
[2017-01-18] MEDS: Magnesium Oxide 400 MG Tab PO SCH ×3 (10:10→22:20)
[2017-01-18] MEDS: Nicotine 21 MG/24 Hr Patch TRDERM SCH (10:15)
[2017-01-18] MEDS ORDERED: AMINOPHYLLINE IV ONE (14:30)
[2017-01-18] MEDS ORDERED: SODIUM CHLORIDE 0.9% IV ONE (14:30)
[2017-01-18] MEDS: Azithromycin 250 MG in Sodium Chloride 0.9% 250 ML IV SCH (17:07)
[2017-01-18] MEDS: Simvastatin 10 MG Tab PO SCH ×2 (19:50→22:21)
[2017-01-18] MEDS: INSULIN GLARGINE 100 UNIT/ML SUBCUT SCH (20:06)
[2017-01-19] MEDS: Albuterol/Ipratropium 3.0-0.5 MG/3 ML Neb Soln NEB PRN ×5 (00:30→18:19)
[2017-01-19] MEDS: methylPREDNISolone Sodium Succinate 125 MG/2 ML SDV IVPUSH SCH (06:28)
[2017-01-19] MEDS: glipiZIDE 5 MG Tab.ER PO SCH ×2 (06:30→17:10)
[2017-01-19] MEDS: Insulin Aspart 100 Units/ML 3 ML Pen SUBCUT SCH ×4 (08:21→21:19)
[2017-01-19] MEDS ORDERED: Theophylline 200 MG Tab.ER PO SCH ×3 (09:00→21:00)
--- NOTE | 2017-01-19 09:22 | PCM.PN ---
- General Info Date of Service: 01/19/17 Admission Dx/Problem (Free Text): COPD Exacerbation Patient is seen this morning resting in bed. Appears mildly short of breath and able to talk in 6-7 word sentences before becoming noticeably SOB. States she is still coughing up thick yellow phelgm. Overall she feels she is breathing easier and is improving. Denies c/o pain, moving bowels and passing water without difficulty. I have a long conversation with her about smoking cessation today. Functional Status: Reports: Pain Controlled, Tolerating Diet, Ambulating, Urinating. Denies: New Symptoms - Review of Systems General: Reports: No Symptoms, Weakness, Fatigue. Denies: Fever HEENT: Reports: No Symptoms Pulmonary: Reports: Shortness of Breath, Cough, Sputum, Wheezing. Denies: Pleuritic Chest Pain, Hemoptysis Cardiovascular: Reports: No Symptoms, Dyspnea on Exertion, Lightheadedness ( with coughing fits). Denies: Chest Pain, Palpitations Gastrointestinal: Reports: No Symptoms Genitourinary: Reports: No Symptoms Musculoskeletal: Reports: No Symptoms Skin: Reports: No Symptoms Neurological: Reports: No Symptoms Psychiatric: Reports: No Symptoms - Patient Data Vitals - Most Recent: Last Vital Signs Temp 97.2 F 01/18/17 23:29 Pulse 72 01/19/17 03:55 Resp 36 H 01/19/17 03:55 BP 158/62 H 01/19/17 03:55 Pulse Ox 92 L 01/19/17 05:52 Weight - Most Recent: 244 lb 3.2 oz I&O - Last 24 Hours: Intake & Output 01/18/17 01/19/17 01/19/17 22:59 06:59 14:59 Intake Total 950 1747 Output Total 2400 2100 Balance -1450 -353 Lab Results Last 24 Hours: Laboratory Results - last 24 hr 01/18/17 01/18/17 01/18/17 Range/Units 11:26 17:00 20:00 WBC (3.98-10.04) K/mm3 RBC (3.98-5.22) M/mm3 Hgb (11.2-15.7) gm/L Hct (34.1-44.9) % MCV (79.4-94.8) fl MCH (25.6-32.2) pg MCHC (32.2-35.5) g/dl RDW Std Deviation (36.4-46.3) fL Plt Count (182-369) K/mm3 MPV (9.4-12.3) fl Neut % (Auto) (34.0-71.1) % Lymph % (Auto) (19.3-51.7) % [place] % (Auto) (4.7-12.5) % Eos % (Auto) (0.7-5.8) Baso % (Auto) (0.1-1.2) % Neut # (Auto) (1.56-6.13) K/mm3 Lymph # (Auto) (1.18-3.74) K/mm3 [place] # (Auto) (0.24-0.36) K/mm3 Eos # (Auto) (0.04-0.36) K/mm3 Baso # (Auto) (0.01-0.08) K/mm3 Manual Slide Review Sodium (136-145) mEq/L Potassium (3.5-5.1) mEq/L Chloride (98-107) mEq/L Carbon Dioxide (21-32) mEq/L Anion Gap (5-15) BUN (7-18) mg/dL Creatinine (0.55-1.02) mg/dL Est Cr Clr Drug Dosing mL/min Estimated GFR (MDRD) (>60) mL/min BUN/Creatinine Ratio (14-18) Glucose (80-115) mg/dL POC Glucose 234 H 287 H 329 H (80-115) mg/dL Calcium (8.5-10.1) mg/dL Magnesium (1.8-2.4) mg/dl C-Reactive Protein (<1.0) mg/dL 01/19/17 01/19/17 01/19/17 Range/Units 05:40 05:40 06:27 WBC 14.85 H (3.98-10.04) K/mm3 RBC 4.08 (3.98-5.22) M/mm3 Hgb 11.9 (11.2-15.7) gm/L Hct 37.2 (34.1-44.9) % MCV 91.2 (79.4-94.8) fl MCH 29.2 (25.6-32.2) pg MCHC 32.0 L (32.2-35.5) g/dl RDW Std Deviation 49.3 H (36.4-46.3) fL Plt Count 244 (182-369) K/mm3 MPV 10.2 (9.4-12.3) fl Neut % (Auto) 90.1 H (34.0-71.1) % Lymph % (Auto) 5.9 L (19.3-51.7) % [place] % (Auto) 4.0 L (4.7-12.5) % Eos % (Auto) 0 L (0.7-5.8) Baso % (Auto) 0.0 L (0.1-1.2) % Neut # (Auto) 13.38 H (1.56-6.13) K/mm3 Lymph # (Auto) 0.87 L (1.18-3.74) K/mm3 [place] # (Auto) 0.60 H (0.24-0.36) K/mm3 Eos # (Auto) 0.00 L (0.04-0.36) K/mm3 Baso # (Auto) 0.00 L (0.01-0.08) K/mm3 Manual Slide Review Abnormal smear Sodium 136 (136-145) mEq/L Potassium 4.9 (3.5-5.1) mEq/L Chloride 101 (98-107) mEq/L Carbon Dioxide 26 (21-32) mEq/L Anion Gap 13.9 (5-15) BUN 28 H (7-18) mg/dL Creatinine 1.0 (0.55-1.02) mg/dL Est Cr Clr Drug Dosing 49.80 mL/min Estimated GFR (MDRD) 55 (>60) mL/min BUN/Creatinine Ratio 28.0 H (14-18) Glucose 260 H (80-115) mg/dL POC Glucose 214 H (80-115) mg/dL Calcium 8.7 (8.5-10.1) mg/dL Magnesium 2.1 (1.8-2.4) mg/dl C-Reactive Protein 0.6 (<1.0) mg/dL Med Orders - Current: Current Medications Acetaminophen (Tylenol) 650 mg PO Q4H PRN PRN Reason: Pain (Mild 1-3)/fever Hydrocodone Bitart/Acetaminophen ([place] 325-5 Mg) 1 tab PO Q4H PRN PRN Reason: Pain (moderate 4-6) Albuterol (Proventil Hfa) 0 gm INH BID PRN PRN Reason: Dyspnea Albuterol/Ipratropium (Duoneb 3.0-0.5 Mg/3 Ml) 3 ml NEB Q4H PRN PRN Reason: Shortness Of Breath/wheezing Last Admin: 01/19/17 05:51 Dose: 3 ml Allopurinol (Zyloprim) 100 mg PO DAILY [facility] Last Admin: 01/18/17 10:09 Dose: 100 mg Aspirin (Halfprin) 81 mg PO DAILY [facility] Last Admin: 01/18/17 10:09 Dose: 81 mg Bisacodyl (Dulcolax) 5 mg PO DAILY PRN PRN Reason: Constipation Dextrose/Water (Dextrose 50% In Water) 50 ml IVPUSH ASDIRECTED PRN PRN Reason: Hypoglycemia Docusate Sodium (Colace) 100 mg PO BID PRN PRN Reason: Constipation Glipizide (Glucotrol Xl) 10 mg PO BIDMSALS [facility] Last Admin: 01/19/17 06:30 Dose: 10 mg Hydralazine HCl (Apresoline) 20 mg IVPUSH Q4H PRN PRN Reason: Hypertension Promethazine HCl 12.5 mg/ (Sodium Chloride) 50.5 mls @ 100 mls/hr IV Q6H PRN PRN Reason: Nausea/Vomiting Azithromycin 250 mg/ Sodium (Chloride) 250 mls @ 250 mls/hr IV Q24H [facility] Last Admin: 01/18/17 17:07 Dose: 250 mls/hr Aminophylline 500 mg/ Sodium (Chloride) 500 mls @ 20.833 mls/hr IV ONETIME ONE Stop: 01/19/17 16:59 Last Admin: 01/18/17 17:39 Dose: 20.833 mls/hr Insulin Aspart (Novolog) 4 unit SUBCUT QIDACANDBED [facility] Last Admin: 01/19/17 08:21 Dose: 4 units Insulin Aspart (Novolog) 0 unit SUBCUT QIDACANDBED PRN; Protocol PRN Reason: Hyperglycemia Lisinopril (Prinivil) 10 mg PO DAILY [facility] Last Admin: 01/18/17 10:10 Dose: 10 mg Lorazepam (Ativan) 2 mg IVPUSH Q4H PRN PRN Reason: Seizures Lorazepam (Ativan) 1 mg IV Q6H PRN PRN Reason: Anxiety Magnesium Hydroxide (Milk Of Magnesia) 30 ml PO Q12H PRN PRN Reason: Constipation Magnesium Oxide (Magnesium Oxide) 400 mg PO BID [facility] Last Admin: 01/18/17 22:20 Dose: Not Given Magnesium Sulfate (Pharmacy To Dose - Magnesium Replacement) 1 dose .XX ASDIRECTED [facility] Metformin HCl (Glucophage) 1,000 mg PO BID [facility] Last Admin: 01/18/17 22:20 Dose: Not Given Methylprednisolone Sodium Succinate (Solu-Medrol) 40 mg IVPUSH Q12H [facility] Metoprolol Tartrate (Lopressor) 5 mg IVPUSH Q4H PRN PRN Reason: Tachycardia Morphine Sulfate (Morphine) 2 mg IVPUSH Q4H PRN PRN Reason: other Last Admin: 01/18/17 21:40 Dose: 2 mg Nicotine (Habitrol) 21 mg TRDERM DAILY [facility] Last Admin: 01/18/17 10:15 Dose: 21 mg Ondansetron HCl (Zofran) 4 mg IV Q6H PRN PRN Reason: Nausea/Vomiting Insulin Glargine 100 (Units/Ml 3 Ml Pen) 0 each SUBCUT BEDTIME [facility] Last Admin: 01/18/17 20:06 Dose: 45 each Polyethylene Glycol (Miralax) 17 gm PO DAILY PRN PRN Reason: Constipation Potassium Chloride (Pharmacy To Dose - Potassium Replacement) 1 dose .XX ASDIRECTED [facility] Senna/Docusate Sodium (Senna Plus) 1 tab PO BID PRN PRN Reason: Constipation Sertraline HCl (Zoloft) 50 mg PO DAILY [facility] Last Admin: 01/18/17 10:10 Dose: 50 mg Simvastatin (Zocor) 5 mg PO BEDTIME [facility] Last Admin: 01/18/17 22:21 Dose: Not Given Sodium Chloride (Saline Flush) 10 ml FLUSH ASDIRECTED PRN PRN Reason: Keep Vein Open Last Admin: 01/16/17 15:23 Dose: 10 ml Temazepam (Restoril) 7.5 mg PO BEDTIME PRN PRN Reason: Sleep Last Admin: 01/18/17 19:49 Dose: 7.5 mg Theophylline (Theophylline Anhydrous) 200 mg PO BID [facility] Tiotropium [place] (Spiriva Handihaler) 18 mcg INH DAILY PRN PRN Reason: Dyspnea Discontinued Medications Albuterol (Proventil Neb Soln) 2.5 mg NEB ONETIME ONE Stop: 01/16/17 16:08 Last Admin: 01/16/17 16:19 Dose: 2.5 mg Albuterol/Ipratropium (Duoneb 3.0-0.5 Mg/3 Ml) Confirm Administered Dose 3 ml .ROUTE .STK-MED ONE Stop: 01/16/17 15:29 Last Admin: 01/16/17 15:33 Dose: Not Given Albuterol/Ipratropium (Duoneb 3.0-0.5 Mg/3 Ml) Confirm Administered Dose 3 ml .ROUTE .STK-MED ONE Stop: 01/16/17 15:29 Last Admin: 01/16/17 15:33 Dose: Not Given Albuterol/Ipratropium (Duoneb 3.0-0.5 Mg/3 Ml) 3 ml NEB ONETIME ONE Stop: 01/16/17 15:29 Last Admin: 01/16/17 15:33 Dose: 3 ml Azithromycin 250 mg/ Sodium (Chloride) 250 mls @ 250 mls/hr IV ONETIME ONE Stop: 01/16/17 18:08 Last Admin: 01/16/17 20:27 Dose: Not Given Azithromycin 250 mg/ Sodium (Chloride) 250 mls @ 250 mls/hr IV Q24H [facility] Last Admin: 01/16/17 17:53 Dose: Not Given Magnesium Sulfate 2 gm/ Premix 50 mls @ 25 mls/hr IV ONETIME ONE Stop: 01/16/17 19:23 Last Admin: 01/16/17 18:49 Dose: 25 mls/hr Azithromycin 250 mg/ Sodium (Chloride) 250 mls @ 250 mls/hr IV ONETIME ONE Stop: 01/16/17 21:14 Last Admin: 01/16/17 20:46 Dose: 250 mls/hr Aminophylline 325 mg/ Sodium (Chloride) 100 mls @ 200 mls/hr IV ONETIME ONE Stop: 01/18/17 14:59 Last Admin: 01/18/17 14:31 Dose: 200 mls/hr Insulin Aspart (Novolog) 0 unit SUBCUT QIDACANDBED [facility] PRN Reason: Protocol Last Admin: 01/18/17 22:21 Dose: Not Given Methylprednisolone Sodium Succinate (Solu-Medrol) 125 mg IVPUSH ONETIME ONE Stop: 01/16/17 15:29 Last Admin: 01/16/17 15:39 Dose: 125 mg Methylprednisolone Sodium Succinate (Solu-Medrol) 125 mg IVPUSH ONETIME ONE Stop: 01/16/17 21:01 Last Admin: 01/16/17 20:46 Dose: 125 mg Methylprednisolone Sodium Succinate (Solu-Medrol) 125 mg IVPUSH Q8H [facility] Last Admin: 01/16/17 17:53 Dose: Not Given Methylprednisolone Sodium Succinate (Solu-Medrol) 125 mg IVPUSH Q8H [place] Methylprednisolone Sodium Succinate (Solu-Medrol) 80 mg IVPUSH Q8H [place] Methylprednisolone Sodium Succinate (Solu-Medrol) 125 mg IVPUSH Q8H [place] Methylprednisolone Sodium Succinate (Solu-Medrol) 80 mg IVPUSH Q8H [place] Methylprednisolone Sodium Succinate (Solu-Medrol) 80 mg IVPUSH Q8H [facility] Last Admin: 01/19/17 06:28 Dose: 80 mg Morphine Sulfate (Morphine) 1 mg IVPUSH Q4H PRN PRN Reason: Other Stop: 01/17/17 17:13 Last Admin: 01/17/17 09:18 Dose: 1 mg Nicotine (Habitrol) 21 mg TRDERM ONETIME ONE Stop: 01/16/17 19:12 Last Admin: 01/16/17 19:53 Dose: 21 mg Insulin Degludec 45 (Units (Tresiba)) 0 each SUBCUT BEDTIME [facility] Last Admin: 01/17/17 21:22 Dose: Not Given - Exam Quality Assessment: Supplemental Oxygen, DVT Prophylaxis General: Alert, Oriented, No Acute Distress HEENT: Pupils Equal, EOMI, Mucous Membr. Moist/[place]: Supple Lungs: Normal Respiratory Effort, Decreased Breath Sounds, Rhonchi, Wheezing ( expiratory diffusely; very tight lung sounds but does have movemement throughout all gama today). No: Clear to Auscultation Cardiovascular: Regular Rate, Regular Rhythm GI/Abdominal Exam: Normal Bowel Sounds, Soft, Non-Tender (Female) Exam: Deferred Extremities: Normal Inspection, Normal Capillary Refill Peripheral Pulses: 1+: Dorsalis Pedis (L), Dorsalis Pedis (R) Skin: Warm, Dry Neurological: No New Focal Deficit Psy/Mental Status: Alert, Normal Affect, Normal Mood - Problem List & Annotations (1) COPD exacerbation SNOMED Code(s): 648817426, 195809975 Code(s): J44.1 - CHRONIC OBSTRUCTIVE PULMONARY DISEASE W (ACUTE) EXACERBATION Status: Acute Priority: High Current Visit: Yes (2) Hypoxia SNOMED Code(s): 095081142, 568896043 Code(s): R09.02 - HYPOXEMIA Status: Acute Priority: High Current Visit : Yes (3) Acute bronchitis SNOMED Code(s): 05946454 Code(s): J20.9 - ACUTE BRONCHITIS, UNSPECIFIED Status: Acute Priority: High Current Visit: Yes Qualifiers: Bronchitis organism: unspecified organism Qualified Code(s): J20.9 - Acute bronchitis, unspecified (4) Diabetes type 2, uncontrolled SNOMED Code(s): 79396064, 452312885 Code(s): E11.65 - TYPE 2 DIABETES MELLITUS WITH HYPERGLYCEMIA Status: Chronic Priority: Medium Current Visit: Yes Qualifiers: Diabetes mellitus complication status: without complication Diabetes mellitus continuous churn buttermaker insulin use: with detention use Qualified Code(s): E11.65 - Type 2 diabetes mellitus with hyperglycemia; 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 early lt atelectasis, repeat today to assure no early pneumonia - Continue IV Steroids---decrease dose today with plan to transition to PO prednisone tomorrow, Bronchodilators, IV Azithromycin 250 mg Daily, Mag-Ox 400 mg po BIDand Supplemental O2 - PRN IV 2 mg Morphine for Dyspnea - Aminophylline started yesterday- PO maintenance dose starting today -Will repeat CXR today Leukocytosis- improved -2/2 above DM2 with Hyperglycemia - BS in the 200-300a - On Glipizide, Metformin and Insulin regimen - A1C is 7.40 - Accu-check QID/HS - Change ISS level to High dose coverage - CDE consult Tobacco Abuse - Nicotine Patch Daily - Counseled on Smoking Cessation Chronic: Impaired Vision, Retinal Detachment HTN COPD/Asthma Nocturnal Hypoxemia, Uses 2L of O2 at night Hx/o Renal Stones Hx/o Recurrent UTI GOUT OA DM2 Migraines DAVALOS Anxiety Depression Obesity with BMI of 41.6 Other: GI/DVT prophylax PT/OT RT- IS/Nebs AM labs CM/SW for assist with DC planning- if improvements today consider dc in next 24- 48 hours Patient is Full code status
[2017-01-19] MEDS: Magnesium Oxide 400 MG Tab PO SCH ×2 (10:24→21:14)
[2017-01-19] MEDS: Aspirin 81 MG Tab.EC PO SCH (10:25)
[2017-01-19] MEDS: Lisinopril 10 MG Tab PO SCH (10:25)
[2017-01-19] MEDS: metFORMIN 500 MG Tab PO SCH ×2 (10:25→21:14)
[2017-01-19] MEDS: Allopurinol 100 MG Tab PO SCH (10:25)
[2017-01-19] MEDS: Nicotine 21 MG/24 Hr Patch TRDERM SCH (10:25)
[2017-01-19] MEDS: Sertraline 50 MG Tab PO SCH (10:26)
[2017-01-19] MEDS: Acetaminophen/HYDROcodone 325-5 MG Tab PO PRN (11:23)
[2017-01-19] MEDS: Insulin Aspart 100 Units/ML 3 ML Pen SUBCUT PRN ×2 (12:31→21:20)
--- NOTE | 2017-01-19 14:00 | CR ---
Chest: Two views of the chest were obtained. Comparison: Previous chest x-ray performed on 01/18/17. Decreased atelectasis within the left midlung from prior exam. Heart size appears less prominent than seen on previous study. Lungs otherwise are clear with no acute infiltrates. Bony structures are within normal limits for the patient's age. Surgical clips are seen within the upper abdomen. Impression: 1. Chest appears improved from prior exam. Nothing acute is seen. Diagnostic code #2
[2017-01-19] MEDS: methylPREDNISolone Sodium Succinate 40 MG/1 ML SDV IVPUSH SCH (17:10)
[2017-01-19] MEDS: Azithromycin 250 MG in Sodium Chloride 0.9% 250 ML IV SCH (17:20)
[2017-01-19] MEDS: guaiFENesin 600 MG Tab.ER PO SCH (17:53)
[2017-01-19] MEDS: INSULIN GLARGINE 100 UNIT/ML SUBCUT SCH (21:16)
[2017-01-19] MEDS: Simvastatin 10 MG Tab PO SCH (21:17)
[2017-01-19] MEDS: Theophylline 300 MG Tab.ER PO SCH (21:17)
[2017-01-20] MEDS: Albuterol/Ipratropium 3.0-0.5 MG/3 ML Neb Soln NEB PRN ×5 (06:05→23:35)
[2017-01-20] MEDS: methylPREDNISolone Sodium Succinate 40 MG/1 ML SDV IVPUSH SCH (06:35)
[2017-01-20] MEDS: glipiZIDE 5 MG Tab.ER PO SCH ×2 (06:42→17:10)
--- NOTE | 2017-01-20 07:43 | PCM.PN ---
- General Info Date of Service: 01/20/17 Admission Dx/Problem (Free Text): COPD Exacerbation Subjective Update: Follow Up Functional Status: Reports: Pain Controlled, Tolerating Diet, Ambulating, Urinating. Denies: New Symptoms - Review of Systems General: Denies: Fever, Weakness, Fatigue, Malaise, Chills HEENT: Reports: No Symptoms Pulmonary: Reports: Shortness of Breath, Cough, Sputum, Wheezing Cardiovascular: Denies: Chest Pain, Palpitations, Lightheadedness Gastrointestinal: Denies: Abdominal Pain, Nausea, Vomiting Genitourinary: Reports: No Symptoms Musculoskeletal: Reports: No Symptoms Skin: Denies: Cyanosis Neurological: Denies: Confusion, Difficulty Walking, Weakness, Gait Disturbance Psychiatric: Denies: Depression, Mood Lability, Anxiety, Agitation, Cravings, Hallucinations Systems Review Comment:: No significant overnight or acute issues. She feels better. She slept okay. She is now at 2.5L NC for supplemental O2. She has no new complaints. - Patient Data Vitals - Most Recent: Last Vital Signs Temp 36.7 C 01/20/17 03:28 Pulse 71 01/20/17 03:28 Resp 20 01/20/17 03:28 BP 136/67 01/20/17 03:40 Pulse Ox 92 L 01/20/17 06:07 Weight - Most Recent: 110.495 kg I&O - Last 24 Hours: Intake & Output 01/19/17 01/20/17 01/20/17 22:59 06:59 14:59 Intake Total 820 650 Output Total 1200 1675 Balance -380 -1025 Lab Results Last 24 Hours: Laboratory Results - last 24 hr 01/19/17 01/19/17 01/19/17 Range/Units 08:50 11:46 17:12 WBC (3.98-10.04) K/mm3 RBC (3.98-5.22) M/mm3 Hgb (11.2-15.7) gm/L Hct (34.1-44.9) % MCV (79.4-94.8) fl MCH (25.6-32.2) pg MCHC (32.2-35.5) g/dl RDW Std Deviation (36.4-46.3) fL Plt Count (182-369) K/mm3 MPV (9.4-12.3) fl Neut % (Auto) (34.0-71.1) % Lymph % (Auto) (19.3-51.7) % Barber % (Auto) (4.7-12.5) % Eos % (Auto) (0.7-5.8) Baso % (Auto) (0.1-1.2) % Neut # (Auto) (1.56-6.13) K/mm3 Lymph # (Auto) (1.18-3.74) K/mm3 Barber # (Auto) (0.24-0.36) K/mm3 Eos # (Auto) (0.04-0.36) K/mm3 Baso # (Auto) (0.01-0.08) K/mm3 Sodium (136-145) mEq/L Potassium (3.5-5.1) mEq/L Chloride (98-107) mEq/L Carbon Dioxide (21-32) mEq/L Anion Gap (5-15) BUN (7-18) mg/dL Creatinine (0.55-1.02) mg/dL Est Cr Clr Drug Dosing mL/min Estimated GFR (MDRD) (>60) mL/min BUN/Creatinine Ratio (14-18) Glucose (80-115) mg/dL POC Glucose 262 H 87 (80-115) mg/dL Calcium (8.5-10.1) mg/dL Magnesium (1.8-2.4) mg/dl C-Reactive Protein (<1.0) mg/dL Theophylline 4.9 L (10.0-20.0) ug/mL 01/19/17 01/20/17 01/20/17 Range/Units 21:00 06:34 06:40 WBC 19.14 H (3.98-10.04) K/mm3 RBC 4.70 (3.98-5.22) M/mm3 Hgb 13.3 (11.2-15.7) gm/L Hct 42.4 (34.1-44.9) % MCV 90.2 (79.4-94.8) fl MCH 28.3 (25.6-32.2) pg MCHC 31.4 L (32.2-35.5) g/dl RDW Std Deviation 48.4 H (36.4-46.3) fL Plt Count 289 (182-369) K/mm3 MPV 9.8 (9.4-12.3) fl Neut % (Auto) 79.3 H (34.0-71.1) % Lymph % (Auto) 12.3 L (19.3-51.7) % Barber % (Auto) 7.8 (4.7-12.5) % Eos % (Auto) 0 L (0.7-5.8) Baso % (Auto) 0.1 (0.1-1.2) % Neut # (Auto) 15.19 H (1.56-6.13) K/mm3 Lymph # (Auto) 2.35 (1.18-3.74) K/mm3 Barber # (Auto) 1.49 H (0.24-0.36) K/mm3 Eos # (Auto) 0.00 L (0.04-0.36) K/mm3 Baso # (Auto) 0.02 (0.01-0.08) K/mm3 Sodium (136-145) mEq/L Potassium (3.5-5.1) mEq/L Chloride (98-107) mEq/L Carbon Dioxide (21-32) mEq/L Anion Gap (5-15) BUN (7-18) mg/dL Creatinine (0.55-1.02) mg/dL Est Cr Clr Drug Dosing mL/min Estimated GFR (MDRD) (>60) mL/min BUN/Creatinine Ratio (14-18) Glucose (80-115) mg/dL POC Glucose 256 H 167 H (80-115) mg/dL Calcium (8.5-10.1) mg/dL Magnesium (1.8-2.4) mg/dl C-Reactive Protein (<1.0) mg/dL Theophylline (10.0-20.0) ug/mL 01/20/17 Range/Units 06:40 WBC (3.98-10.04) K/mm3 RBC (3.98-5.22) M/mm3 Hgb (11.2-15.7) gm/L Hct (34.1-44.9) % MCV (79.4-94.8) fl MCH (25.6-32.2) pg MCHC (32.2-35.5) g/dl RDW Std Deviation (36.4-46.3) fL Plt Count (182-369) K/mm3 MPV (9.4-12.3) fl Neut % (Auto) (34.0-71.1) % Lymph % (Auto) (19.3-51.7) % Barber % (Auto) (4.7-12.5) % Eos % (Auto) (0.7-5.8) Baso % (Auto) (0.1-1.2) % Neut # (Auto) (1.56-6.13) K/mm3 Lymph # (Auto) (1.18-3.74) K/mm3 Barber # (Auto) (0.24-0.36) K/mm3 Eos # (Auto) (0.04-0.36) K/mm3 Baso # (Auto) (0.01-0.08) K/mm3 Sodium 138 (136-145) mEq/L Potassium 4.4 (3.5-5.1) mEq/L Chloride 99 (98-107) mEq/L Carbon Dioxide 32 (21-32) mEq/L Anion Gap 11.4 (5-15) BUN 27 H (7-18) mg/dL Creatinine 0.9 (0.55-1.02) mg/dL Est Cr Clr Drug Dosing 55.33 mL/min Estimated GFR (MDRD) > 60 (>60) mL/min BUN/Creatinine Ratio 30.0 H (14-18) Glucose 168 H (80-115) mg/dL POC Glucose (80-115) mg/dL Calcium 9.4 (8.5-10.1) mg/dL Magnesium 2.2 (1.8-2.4) mg/dl C-Reactive Protein 1.9 H* (<1.0) mg/dL Theophylline (10.0-20.0) ug/mL Med Orders - Current: Current Medications Acetaminophen (Tylenol) 650 mg PO Q4H PRN PRN Reason: Pain (Mild 1-3)/fever Hydrocodone Bitart/Acetaminophen ([place] 325-5 Mg) 1 tab PO Q4H PRN PRN Reason: Pain (moderate 4-6) Last Admin: 01/19/17 11:23 Dose: 1 tab Albuterol (Proventil Hfa) 0 gm INH BID PRN PRN Reason: Dyspnea Albuterol/Ipratropium (Duoneb 3.0-0.5 Mg/3 Ml) 3 ml NEB Q4H PRN PRN Reason: Shortness Of Breath/wheezing Last Admin: 01/20/17 06:05 Dose: 3 ml Allopurinol (Zyloprim) 100 mg PO DAILY [facility] Last Admin: 01/19/17 10:25 Dose: 100 mg Aspirin (Halfprin) 81 mg PO DAILY [facility] Last Admin: 01/19/17 10:25 Dose: 81 mg Bisacodyl (Dulcolax) 5 mg PO DAILY PRN PRN Reason: Constipation Dextrose/Water (Dextrose 50% In Water) 50 ml IVPUSH ASDIRECTED PRN PRN Reason: Hypoglycemia Docusate Sodium (Colace) 100 mg PO BID PRN PRN Reason: Constipation Glipizide (Glucotrol Xl) 10 mg PO BIDMEALS [facility] Last Admin: 01/20/17 06:42 Dose: 10 mg Guaifenesin (Mucinex) 1,200 mg PO BID [facility] Last Admin: 01/19/17 17:53 Dose: 1,200 mg Hydralazine HCl (Apresoline) 20 mg IVPUSH Q4H PRN PRN Reason: Hypertension Promethazine HCl 12.5 mg/ (Sodium Chloride) 50.5 mls @ 100 mls/hr IV Q6H PRN PRN Reason: Nausea/Vomiting Azithromycin 250 mg/ Sodium (Chloride) 250 mls @ 250 mls/hr IV Q24H [facility] Last Admin: 01/19/17 17:20 Dose: 250 mls/hr Insulin Aspart (Novolog) 4 unit SUBCUT QIDACANDBED [facility] Last Admin: 01/19/17 21:19 Dose: 4 units Insulin Aspart (Novolog) 0 unit SUBCUT QIDACANDBED PRN; Protocol PRN Reason: Hyperglycemia Last Admin: 01/19/17 21:20 Dose: 9 units Lisinopril (Prinivil) 10 mg PO DAILY [facility] Last Admin: 01/19/17 10:25 Dose: 10 mg Lorazepam (Ativan) 2 mg IVPUSH Q4H PRN PRN Reason: Seizures Lorazepam (Ativan) 1 mg IV Q6H PRN PRN Reason: Anxiety Magnesium Hydroxide (Milk Of Magnesia) 30 ml PO Q12H PRN PRN Reason: Constipation Magnesium Oxide (Magnesium Oxide) 400 mg PO BID [facility] Last Admin: 01/19/17 21:14 Dose: 400 mg Magnesium Sulfate (Pharmacy To Dose - Magnesium Replacement) 1 dose .XX ASDIRECTED [facility] Metformin HCl (Glucophage) 1,000 mg PO BID [facility] Last Admin: 01/19/17 21:14 Dose: 1,000 mg Methylprednisolone Sodium Succinate (Solu-Medrol) 40 mg IVPUSH Q12H [facility] Stop: 01/20/17 12:00 Last Admin: 01/20/17 06:35 Dose: 40 mg Metoprolol Tartrate (Lopressor) 5 mg IVPUSH Q4H PRN PRN Reason: Tachycardia Morphine Sulfate (Morphine) 2 mg IVPUSH Q4H PRN PRN Reason: other Last Admin: 01/18/17 21:40 Dose: 2 mg Nicotine (Habitrol) 21 mg TRDERM DAILY [facility] Last Admin: 01/19/17 10:25 Dose: 21 mg Ondansetron HCl (Zofran) 4 mg IV Q6H PRN PRN Reason: Nausea/Vomiting Insulin Glargine 100 (Units/Ml 3 Ml Pen) 0 each SUBCUT BEDTIME [facility] Last Admin: 01/19/17 21:16 Dose: 1 each Polyethylene Glycol (Miralax) 17 gm PO DAILY PRN PRN Reason: Constipation Potassium Chloride (Pharmacy To Dose - Potassium Replacement) 1 dose .XX ASDIRECTED [facility] Prednisone (Prednisone) 60 mg PO DAILY [facility] Stop: 01/23/17 09:01 Prednisone (Prednisone) 40 mg PO DAILY [facility] Stop: 01/26/17 09:01 Prednisone (Prednisone) 20 mg PO DAILY [facility] Stop: 01/29/17 09:01 Prednisone (Prednisone) 10 mg PO DAILY [facility] Stop: 02/01/17 09:01 Senna/Docusate Sodium (Senna Plus) 1 tab PO BID PRN PRN Reason: Constipation Sertraline HCl (Zoloft) 50 mg PO DAILY [facility] Last Admin: 01/19/17 10:26 Dose: 50 mg Simvastatin (Zocor) 5 mg PO BEDTIME [facility] Last Admin: 01/19/17 21:17 Dose: 5 mg Sodium Chloride (Saline Flush) 10 ml FLUSH ASDIRECTED PRN PRN Reason: Keep Vein Open Last Admin: 01/16/17 15:23 Dose: 10 ml Temazepam (Restoril) 7.5 mg PO BEDTIME PRN PRN Reason: Sleep Last Admin: 01/18/17 19:49 Dose: 7.5 mg Theophylline (Theophylline Anhydrous) 150 mg PO BID [facility] Last Admin: 01/19/17 21:17 Dose: 150 mg Tiotropium [place] (Spiriva Handihaler) 18 mcg INH DAILY PRN PRN Reason: Dyspnea Discontinued Medications Albuterol (Proventil Neb Soln) 2.5 mg NEB ONETIME ONE Stop: 01/16/17 16:08 Last Admin: 01/16/17 16:19 Dose: 2.5 mg Albuterol/Ipratropium (Duoneb 3.0-0.5 Mg/3 Ml) Confirm Administered Dose 3 ml .ROUTE .STK-MED ONE Stop: 01/16/17 15:29 Last Admin: 01/16/17 15:33 Dose: Not Given Albuterol/Ipratropium (Duoneb 3.0-0.5 Mg/3 Ml) Confirm Administered Dose 3 ml .ROUTE .STK-MED ONE Stop: 01/16/17 15:29 Last Admin: 01/16/17 15:33 Dose: Not Given Albuterol/Ipratropium (Duoneb 3.0-0.5 Mg/3 Ml) 3 ml NEB ONETIME ONE Stop: 01/16/17 15:29 Last Admin: 01/16/17 15:33 Dose: 3 ml Azithromycin 250 mg/ Sodium (Chloride) 250 mls @ 250 mls/hr IV ONETIME ONE Stop: 01/16/17 18:08 Last Admin: 01/16/17 20:27 Dose: Not Given Azithromycin 250 mg/ Sodium (Chloride) 250 mls @ 250 mls/hr IV Q24H [facility] Last Admin: 01/16/17 17:53 Dose: Not Given Magnesium Sulfate 2 gm/ Premix 50 mls @ 25 mls/hr IV ONETIME ONE Stop: 01/16/17 19:23 Last Admin: 01/16/17 18:49 Dose: 25 mls/hr Azithromycin 250 mg/ Sodium (Chloride) 250 mls @ 250 mls/hr IV ONETIME ONE Stop: 01/16/17 21:14 Last Admin: 01/16/17 20:46 Dose: 250 mls/hr Aminophylline 325 mg/ Sodium (Chloride) 100 mls @ 200 mls/hr IV ONETIME ONE Stop: 01/18/17 14:59 Last Admin: 01/18/17 14:31 Dose: 200 mls/hr Aminophylline 500 mg/ Sodium (Chloride) 500 mls @ 20.833 mls/hr IV ONETIME ONE Stop: 01/19/17 16:59 Last Admin: 01/18/17 17:39 Dose: 20.833 mls/hr Insulin Aspart (Novolog) 0 unit SUBCUT QIDACANDBED [facility] PRN Reason: Protocol Last Admin: 01/18/17 22:21 Dose: Not Given Methylprednisolone Sodium Succinate (Solu-Medrol) 125 mg IVPUSH ONETIME ONE Stop: 01/16/17 15:29 Last Admin: 01/16/17 15:39 Dose: 125 mg Methylprednisolone Sodium Succinate (Solu-Medrol) 125 mg IVPUSH ONETIME ONE Stop: 01/16/17 21:01 Last Admin: 01/16/17 20:46 Dose: 125 mg Methylprednisolone Sodium Succinate (Solu-Medrol) 125 mg IVPUSH Q8H [facility] Last Admin: 01/16/17 17:53 Dose: Not Given Methylprednisolone Sodium Succinate (Solu-Medrol) 125 mg IVPUSH Q8H [facility] Methylprednisolone Sodium Succinate (Solu-Medrol) 80 mg IVPUSH Q8H [facility] Methylprednisolone Sodium Succinate (Solu-Medrol) 125 mg IVPUSH Q8H [facility] Methylprednisolone Sodium Succinate (Solu-Medrol) 80 mg IVPUSH Q8H [facility] Methylprednisolone Sodium Succinate (Solu-Medrol) 80 mg IVPUSH Q8H [facility] Last Admin: 01/19/17 06:28 Dose: 80 mg Morphine Sulfate (Morphine) 1 mg IVPUSH Q4H PRN PRN Reason: Other Stop: 01/17/17 17:13 Last Admin: 01/17/17 09:18 Dose: 1 mg Nicotine (Habitrol) 21 mg TRDERM ONETIME ONE Stop: 01/16/17 19:12 Last Admin: 01/16/17 19:53 Dose: 21 mg Insulin Degludec 45 (Units (Tresiba)) 0 each SUBCUT BEDTIME [facility] Last Admin: 01/17/17 21:22 Dose: Not Given Prednisone (Prednisone) 0 mg PO .TAPER [facility] PRN Reason: Taper Stop: 02/02/17 07:59 Theophylline (Theophylline Anhydrous) 200 mg PO BID [facility] Last Admin: 01/19/17 11:39 Dose: Not Given Theophylline (Theophylline Anhydrous) 200 mg PO BID [facility] Last Admin: 01/19/17 13:11 Dose: Not Given Theophylline (Theophylline Anhydrous) 100 mg PO BID [facility] - Exam Quality Assessment: Supplemental Oxygen General: Alert, Oriented, Cooperative, No Acute Distress HEENT: Pupils Reactive (left), Mucous Membr. Moist/[place]. No: Pupils Equal Neck: Supple, Trachea Midline, No JVD, No Thyromegaly, Other (No accessory muscle use) Lungs: Normal Respiratory Effort, Rhonchi, Wheezing Cardiovascular: Regular Rate, Regular Rhythm GI/Abdominal Exam: Normal Bowel Sounds, Soft, Non-Tender, No Organomegaly, No Distention, No Abnormal Bruit, No Mass (Female) Exam: Deferred Back Exam: Normal Inspection, Decreased Range of Motion Extremities: Normal Inspection, Normal Range of Motion, Non-Tender, No Pedal Edema, Normal Capillary Refill Peripheral Pulses: 2+: Posterior Tibial (R), Dorsalis Pedis (L), Dorsalis Pedis (R) Skin: Warm, Dry, Intact Neurological: No New Focal Deficit Psy/Mental Status: Alert, Normal Affect, Normal Mood - Problem List Review Problem List Initiated/Reviewed/Updated: Yes - My Orders Last 24 Hours: My Active Orders 01/19/17 07:00 Insulin Aspart [NovoLOG] 4 unit SUBCUT QIDACANDBED 01/19/17 17:30 guaiFENesin [Mucinex] 1,200 mg PO BID 01/19/17 21:00 Theophylline [Theophylline Anhydrous] 150 mg PO BID - Assessment Assessment:: Assessment/Plan: Acute: COPD Exacerbation/acute bronchitis - 2/2 Non-compliance; continues to smoke- carries at least 40pk yr hx - CXR shows no infiltrate- ? early lt atelectasis, repeat today to assure no early pneumonia - Continue IV Steroids---decrease dose today with plan to transition to PO prednisone tomorrow, Bronchodilators, IV Azithromycin 250 mg Daily, Mag-Ox 400 mg po BIDand Supplemental O2 - PRN IV 2 mg Morphine for Dyspnea - Aminophylline started yesterday- PO maintenance dose starting today -Will repeat CXR today Leukocytosis- improved -2/2 above DM2 with Hyperglycemia - BS in the 200-300a - On Glipizide, Metformin and Insulin regimen - A1C is 7.40 - Accu-check QID/HS - Change ISS level to High dose coverage - CDE consult Tobacco Abuse - Nicotine Patch Daily - Counseled on Smoking Cessation Chronic: Impaired Vision, Retinal Detachment HTN COPD/Asthma Nocturnal Hypoxemia, Uses 2L of O2 at night Hx/o Renal Stones Hx/o Recurrent UTI GOUT OA DM2 Migraines DAVALOS Anxiety Depression Obesity with BMI of 41.6 Other: GI/DVT prophylax PT/OT RT- IS/Nebs AM labs CM/SW for assist with DC planning- if improvements today consider dc in next 24- 48 hours Patient is Full code status - Plan Plan:: Plan: She is clinically improving but slowly Routine AM Continue current treatment Continue PT/OT/RT CM/SW for d/c planning Additional orders as above Code status: 1 LOS > 96 hrs due to slow response to treatment
[2017-01-20] MEDS: Insulin Aspart 100 Units/ML 3 ML Pen SUBCUT SCH ×6 (08:01→21:57)
[2017-01-20] MEDS: Insulin Aspart 100 Units/ML 3 ML Pen SUBCUT PRN ×2 (08:02→13:03)
[2017-01-20] MEDS: metFORMIN 500 MG Tab PO SCH ×2 (08:03→21:53)
[2017-01-20] MEDS: Lisinopril 10 MG Tab PO SCH (08:03)
[2017-01-20] MEDS: guaiFENesin 600 MG Tab.ER PO SCH ×2 (08:03→21:53)
[2017-01-20] MEDS: Magnesium Oxide 400 MG Tab PO SCH ×2 (08:07→21:53)
[2017-01-20] MEDS: Allopurinol 100 MG Tab PO SCH (08:07)
[2017-01-20] MEDS: Nicotine 21 MG/24 Hr Patch TRDERM SCH (08:07)
[2017-01-20] MEDS: Aspirin 81 MG Tab.EC PO SCH (08:07)
[2017-01-20] MEDS: Sertraline 50 MG Tab PO SCH (08:07)
[2017-01-20] MEDS: Theophylline 300 MG Tab.ER PO SCH ×2 (08:08→21:55)
[2017-01-20] MEDS: Azithromycin 250 MG in Sodium Chloride 0.9% 250 ML IV SCH (17:10)
[2017-01-20] MEDS: Acetaminophen/HYDROcodone 325-5 MG Tab PO PRN (19:03)
[2017-01-20] MEDS: INSULIN GLARGINE 100 UNIT/ML SUBCUT SCH (21:54)
[2017-01-20] MEDS: Simvastatin 10 MG Tab PO SCH (21:55)
[2017-01-21] MEDS: Acetaminophen 325 MG Tab PO PRN ×2 (01:26→12:54)
[2017-01-21] MEDS: Acetaminophen/HYDROcodone 325-5 MG Tab PO PRN (05:06)
[2017-01-21] MEDS: Insulin Aspart 100 Units/ML 3 ML Pen SUBCUT SCH ×8 (06:33→21:31)
[2017-01-21] MEDS: glipiZIDE 5 MG Tab.ER PO SCH ×2 (06:33→17:11)
[2017-01-21] MEDS: Albuterol/Ipratropium 3.0-0.5 MG/3 ML Neb Soln NEB PRN ×5 (06:35→23:34)
--- NOTE | 2017-01-21 07:27 | PCM.PN ---
- General Info Date of Service: 01/21/17 Admission Dx/Problem (Free Text): COPD Exacerbation Subjective Update: Follow Up Functional Status: Reports: Pain Controlled, Tolerating Diet, Urinating, Incentive Spirometry. Denies: New Symptoms - Review of Systems General: Denies: Fever, Weakness, Fatigue, Malaise, Chills HEENT: Reports: Headaches, Other (Sinus Pain). Denies: Dysphasia, Ear Pain, Eye Pain, Sinus Congestion, Sore Throat, Visual Changes Pulmonary: Reports: Shortness of Breath, Cough, Sputum. Denies: Wheezing Cardiovascular: Denies: Chest Pain, Palpitations, Dyspnea on Exertion Gastrointestinal: Denies: Abdominal Pain, Nausea, Vomiting Genitourinary: Reports: No Symptoms Musculoskeletal: Reports: No Symptoms Skin: Denies: Cyanosis, Mottled, Diaphoresis, Rash Neurological: Denies: Confusion, Difficulty Walking, Weakness, Gait Disturbance Psychiatric: Denies: Depression, Mood Lability, Anxiety, Agitation, Cravings, Hallucinations Systems Review Comment:: Patient breaths better but she complaints of DAVALOS and facial discomfort/ tenderness. She still has productive cough. She has no other complaints. - Patient Data Vitals - Most Recent: Last Vital Signs Temp 37.0 C 01/21/17 04:56 Pulse 91 01/21/17 04:56 Resp 18 01/21/17 04:56 BP 111/74 01/21/17 04:56 Pulse Ox 92 L 01/21/17 06:36 Weight - Most Recent: 109.86 kg I&O - Last 24 Hours: Intake & Output 01/20/17 01/21/17 01/21/17 22:59 06:59 14:59 Intake Total 1130 450 Output Total 1500 2000 Balance -370 -1550 Lab Results Last 24 Hours: Laboratory Results - last 24 hr 01/20/17 01/20/17 01/20/17 Range/Units 11:49 17:05 21:51 WBC (3.98-10.04) K/mm3 RBC (3.98-5.22) M/mm3 Hgb (11.2-15.7) gm/L Hct (34.1-44.9) % MCV (79.4-94.8) fl MCH (25.6-32.2) pg MCHC (32.2-35.5) g/dl RDW Std Deviation (36.4-46.3) fL Plt Count (182-369) K/mm3 MPV (9.4-12.3) fl Neut % (Auto) (34.0-71.1) % Lymph % (Auto) (19.3-51.7) % [place] % (Auto) (4.7-12.5) % Eos % (Auto) (0.7-5.8) Baso % (Auto) (0.1-1.2) % Neut # (Auto) (1.56-6.13) K/mm3 Lymph # (Auto) (1.18-3.74) K/mm3 [place] # (Auto) (0.24-0.36) K/mm3 Eos # (Auto) (0.04-0.36) K/mm3 Baso # (Auto) (0.01-0.08) K/mm3 POC Glucose 170 H 274 H 304 H (80-115) mg/dL 01/21/17 01/21/17 Range/Units 06:10 06:33 WBC 16.46 H (3.98-10.04) K/mm3 RBC 4.25 (3.98-5.22) M/mm3 Hgb 12.0 (11.2-15.7) gm/L Hct 38.4 (34.1-44.9) % MCV 90.4 (79.4-94.8) fl MCH 28.2 (25.6-32.2) pg MCHC 31.3 L (32.2-35.5) g/dl RDW Std Deviation 48.1 H (36.4-46.3) fL Plt Count 243 (182-369) K/mm3 MPV 10.0 (9.4-12.3) fl Neut % (Auto) 74.3 H (34.0-71.1) % Lymph % (Auto) 15.5 L (19.3-51.7) % [place] % (Auto) 9.0 (4.7-12.5) % Eos % (Auto) 0.4 L (0.7-5.8) Baso % (Auto) 0.1 (0.1-1.2) % Neut # (Auto) 12.25 H (1.56-6.13) K/mm3 Lymph # (Auto) 2.55 (1.18-3.74) K/mm3 [place] # (Auto) 1.48 H (0.24-0.36) K/mm3 Eos # (Auto) 0.06 (0.04-0.36) K/mm3 Baso # (Auto) 0.01 (0.01-0.08) K/mm3 POC Glucose 80 (80-115) mg/dL Med Orders - Current: Current Medications Acetaminophen (Tylenol) 650 mg PO Q4H PRN PRN Reason: Pain (Mild 1-3)/fever Last Admin: 01/21/17 01:26 Dose: 650 mg Hydrocodone Bitart/Acetaminophen ([place] 325-5 Mg) 1 tab PO Q4H PRN PRN Reason: Pain (moderate 4-6) Last Admin: 01/21/17 05:06 Dose: 1 tab Albuterol (Proventil Hfa) 0 gm INH BID PRN PRN Reason: Dyspnea Albuterol/Ipratropium (Duoneb 3.0-0.5 Mg/3 Ml) 3 ml NEB Q4H PRN PRN Reason: Shortness Of Breath/wheezing Last Admin: 01/21/17 06:35 Dose: 3 ml Allopurinol (Zyloprim) 100 mg PO DAILY [facility] Last Admin: 01/20/17 08:07 Dose: 100 mg Aspirin (Halfprin) 81 mg PO DAILY [facility] Last Admin: 01/20/17 08:07 Dose: 81 mg Bisacodyl (Dulcolax) 5 mg PO DAILY PRN PRN Reason: Constipation Dextrose/Water (Dextrose 50% In Water) 50 ml IVPUSH ASDIRECTED PRN PRN Reason: Hypoglycemia Docusate Sodium (Colace) 100 mg PO BID PRN PRN Reason: Constipation [facility]) [facility] Last Admin: 01/21/17 06:33 Dose: 10 mg Guaifenesin (Mucinex) 1,200 mg PO BID [facility] Last Admin: 01/20/17 21:53 Dose: 1,200 mg Hydralazine HCl (Apresoline) 20 mg IVPUSH Q4H PRN PRN Reason: Hypertension Promethazine HCl 12.5 mg/ (Sodium Chloride) 50.5 mls @ 100 mls/hr IV Q6H PRN PRN Reason: Nausea/Vomiting Azithromycin 250 mg/ Sodium (Chloride) 250 mls @ 250 mls/hr IV Q24H [facility] Last Admin: 01/20/17 17:10 Dose: 250 mls/hr Insulin Aspart (Novolog) 4 unit SUBCUT QIDACANDBED [facility] Last Admin: 01/20/17 21:56 Dose: 4 units Insulin Aspart (Novolog) 0 unit SUBCUT QIDACANDBED [facility] PRN Reason: Protocol Last Admin: 01/21/17 06:33 Dose: Not Given Lisinopril (Prinivil) 10 mg PO DAILY [facility] Last Admin: 01/20/17 08:03 Dose: 10 mg Lorazepam (Ativan) 2 mg IVPUSH Q4H PRN PRN Reason: Seizures Lorazepam (Ativan) 1 mg IV Q6H PRN PRN Reason: Anxiety Magnesium Hydroxide (Milk Of Magnesia) 30 ml PO Q12H PRN PRN Reason: Constipation Magnesium Oxide (Magnesium Oxide) 400 mg PO BID [facility] Last Admin: 01/20/17 21:53 Dose: 400 mg Magnesium Sulfate (Pharmacy To Dose - Magnesium Replacement) 1 dose .XX ASDIRECTED [facility] Metformin HCl (Glucophage) 1,000 mg PO BID [facility] Last Admin: 01/20/17 21:53 Dose: 1,000 mg Metoprolol Tartrate (Lopressor) 5 mg IVPUSH Q4H PRN PRN Reason: Tachycardia Morphine Sulfate (Morphine) 2 mg IVPUSH Q4H PRN PRN Reason: other Last Admin: 01/18/17 21:40 Dose: 2 mg Nicotine (Habitrol) 21 mg TRDERM DAILY [facility] Last Admin: 01/20/17 08:07 Dose: 21 mg Ondansetron HCl (Zofran) 4 mg IV Q6H PRN PRN Reason: Nausea/Vomiting Insulin Glargine 100 (Units/Ml 3 Ml Pen) 0 each SUBCUT BEDTIME [facility] Last Admin: 01/20/17 21:54 Dose: 1 each Polyethylene Glycol (Miralax) 17 gm PO DAILY PRN PRN Reason: Constipation Potassium Chloride (Pharmacy To Dose - Potassium Replacement) 1 dose .XX ASDIRECTED [facility] Prednisone (Prednisone) 60 mg PO DAILY [facility] Stop: 01/23/17 09:01 Prednisone (Prednisone) 40 mg PO DAILY [facility] Stop: 01/26/17 09:01 Prednisone (Prednisone) 20 mg PO DAILY [facility] Stop: 01/29/17 09:01 Prednisone (Prednisone) 10 mg PO DAILY [facility] Stop: 02/01/17 09:01 Senna/Docusate Sodium (Senna Plus) 1 tab PO BID PRN PRN Reason: Constipation Sertraline HCl (Zoloft) 50 mg PO DAILY [facility] Last Admin: 01/20/17 08:07 Dose: 50 mg Simvastatin (Zocor) 5 mg PO BEDTIME [facility] Last Admin: 01/20/17 21:55 Dose: 5 mg Sodium Chloride (Saline Flush) 10 ml FLUSH ASDIRECTED PRN PRN Reason: Keep Vein Open Last Admin: 01/16/17 15:23 Dose: 10 ml Temazepam (Restoril) 7.5 mg PO BEDTIME PRN PRN Reason: Sleep Last Admin: 01/18/17 19:49 Dose: 7.5 mg Theophylline (Theophylline Anhydrous) 150 mg PO BID [facility] Last Admin: 01/20/17 21:55 Dose: 150 mg Tiotropium [place] (Spiriva Handihaler) 18 mcg INH DAILY PRN PRN Reason: Dyspnea Discontinued Medications Albuterol (Proventil Neb Soln) 2.5 mg NEB ONETIME ONE Stop: 01/16/17 16:08 Last Admin: 01/16/17 16:19 Dose: 2.5 mg Albuterol/Ipratropium (Duoneb 3.0-0.5 Mg/3 Ml) Confirm Administered Dose 3 ml .ROUTE .STK-MED ONE Stop: 01/16/17 15:29 Last Admin: 01/16/17 15:33 Dose: Not Given Albuterol/Ipratropium (Duoneb 3.0-0.5 Mg/3 Ml) Confirm Administered Dose 3 ml .ROUTE .STK-MED ONE Stop: 01/16/17 15:29 Last Admin: 01/16/17 15:33 Dose: Not Given Albuterol/Ipratropium (Duoneb 3.0-0.5 Mg/3 Ml) 3 ml NEB ONETIME ONE Stop: 01/16/17 15:29 Last Admin: 01/16/17 15:33 Dose: 3 ml Azithromycin 250 mg/ Sodium (Chloride) 250 mls @ 250 mls/hr IV ONETIME ONE Stop: 01/16/17 18:08 Last Admin: 01/16/17 20:27 Dose: Not Given Azithromycin 250 mg/ Sodium (Chloride) 250 mls @ 250 mls/hr IV Q24H [place] Last Admin: 01/16/17 17:53 Dose: Not Given Magnesium Sulfate 2 gm/ Premix 50 mls @ 25 mls/hr IV ONETIME ONE Stop: 01/16/17 19:23 Last Admin: 01/16/17 18:49 Dose: 25 mls/hr Azithromycin 250 mg/ Sodium (Chloride) 250 mls @ 250 mls/hr IV ONETIME ONE Stop: 01/16/17 21:14 Last Admin: 01/16/17 20:46 Dose: 250 mls/hr Aminophylline 325 mg/ Sodium (Chloride) 100 mls @ 200 mls/hr IV ONETIME ONE Stop: 01/18/17 14:59 Last Admin: 01/18/17 14:31 Dose: 200 mls/hr Aminophylline 500 mg/ Sodium (Chloride) 500 mls @ 20.833 mls/hr IV ONETIME ONE Stop: 01/19/17 16:59 Last Admin: 01/18/17 17:39 Dose: 20.833 mls/hr Insulin Aspart (Novolog) 0 unit SUBCUT QIDACANDBED [facility] PRN Reason: Protocol Last Admin: 01/18/17 22:21 Dose: Not Given Insulin Aspart (Novolog) 0 unit SUBCUT QIDACANDBED PRN; Protocol PRN Reason: Hyperglycemia Last Admin: 01/20/17 13:03 Dose: 3 units Methylprednisolone Sodium Succinate (Solu-Medrol) 125 mg IVPUSH ONETIME ONE Stop: 01/16/17 15:29 Last Admin: 01/16/17 15:39 Dose: 125 mg Methylprednisolone Sodium Succinate (Solu-Medrol) 125 mg IVPUSH ONETIME ONE Stop: 01/16/17 21:01 Last Admin: 01/16/17 20:46 Dose: 125 mg Methylprednisolone Sodium Succinate (Solu-Medrol) 125 mg IVPUSH Q8H [facility] Last Admin: 01/16/17 17:53 Dose: Not Given Methylprednisolone Sodium Succinate (Solu-Medrol) 125 mg IVPUSH Q8H [facility] Methylprednisolone Sodium Succinate (Solu-Medrol) 80 mg IVPUSH Q8H [facility] Methylprednisolone Sodium Succinate (Solu-Medrol) 125 mg IVPUSH Q8H [facility] Methylprednisolone Sodium Succinate (Solu-Medrol) 80 mg IVPUSH Q8H [place] Methylprednisolone Sodium Succinate (Solu-Medrol) 80 mg IVPUSH Q8H [facility] Last Admin: 01/19/17 06:28 Dose: 80 mg Methylprednisolone Sodium Succinate (Solu-Medrol) 40 mg IVPUSH Q12H [place] Stop: 01/20/17 12:00 Last Admin: 01/20/17 06:35 Dose: 40 mg Morphine Sulfate (Morphine) 1 mg IVPUSH Q4H PRN PRN Reason: Other Stop: 01/17/17 17:13 Last Admin: 01/17/17 09:18 Dose: 1 mg Nicotine (Habitrol) 21 mg TRDERM ONETIME ONE Stop: 01/16/17 19:12 Last Admin: 01/16/17 19:53 Dose: 21 mg Insulin Degludec 45 (Units (Tresiba)) 0 each SUBCUT BEDTIME [facility] Last Admin: 01/17/17 21:22 Dose: Not Given Prednisone (Prednisone) 0 mg PO .TAPER [facility] PRN Reason: Taper Stop: 02/02/17 07:59 Theophylline (Theophylline Anhydrous) 200 mg PO BID [facility] Last Admin: 01/19/17 11:39 Dose: Not Given Theophylline (Theophylline Anhydrous) 200 mg PO BID [facility] Last Admin: 01/19/17 13:11 Dose: Not Given Theophylline (Theophylline Anhydrous) 100 mg PO BID [facility] - Exam Quality Assessment: Supplemental Oxygen General: Alert, Oriented, Cooperative, No Acute Distress, Other (Obese) HEENT: Pupils Equal, Pupils Reactive, EOMI, Mucous Membr. Moist/[place] Neck: Supple, Trachea Midline, No JVD, No Thyromegaly, Other (short and thick) Lungs: Normal Respiratory Effort, Wheezing (occassional expiratory wheezing), Other (She sounds better; could appreciate air going in and out ) Cardiovascular: Regular Rate, Regular Rhythm GI/Abdominal Exam: Normal Bowel Sounds, Soft, Non-Tender, No Organomegaly, No Distention, No Abnormal Bruit, No Mass (Female) Exam: Deferred Back Exam: Normal Inspection, Decreased Range of Motion Extremities: Normal Inspection, Normal Range of Motion, Non-Tender, No Pedal Edema, Normal Capillary Refill Skin: Warm, Dry, Intact Neurological: No New Focal Deficit Psy/Mental Status: Alert, Normal Affect, Normal Mood - Problem List Review Problem List Initiated/Reviewed/Updated: Yes - My Orders Last 24 Hours: My Active Orders 01/20/17 17:00 Insulin Aspart [NovoLOG] 0 unit SUBCUT QIDACANDBED - Assessment Assessment:: Assessment/Plan: Acute: COPD Exacerbation/Acute bronchitis - 2/2 Non-compliance; continues to smoke- carries at least 40pk yr hx - CXR shows no infiltrate- decreased left mid-lung atelectasis - Continue Oral taper steroid dose, Bronchodilators, IV Azithromycin 250 mg Daily, Mag-Ox 400 mg po BID, Theophyllin 150mg po BID and Supplemental O2 - PRN IV 2 mg Morphine for Dyspnea - Leukocytosis - Continues to improved - 2/2 above - She is on steroids DM2 with Hyperglycemia - BS in the 200-300a - On Glipizide, Metformin and Insulin regimen - A1C is 7.40 - Accu-check QID/HS - Change ISS level to High dose coverage - CDE following Tobacco Abuse - Nicotine Patch Daily - Counseled on Smoking Cessation Headache and Facial Tenderness - Facial CT scan r/o Sinusitis - She has tenderness on maxillary and frontal sinuses - DAVALOS is likely due to Morphine Chronic: Impaired Vision, Retinal Detachment HTN COPD/Asthma Nocturnal Hypoxemia, Uses 2L of O2 at night Hx/o Renal Stones Hx/o Recurrent UTI GOUT OA DM2 Migraines DAVALOS Anxiety Depression Obesity with BMI of 41.6 Other: GI/DVT prophylax PT/OT RT- IS/Nebs AM labs CM/SW for assist with DC planning Patient is Full code status - Plan Plan:: Plan: She continues to improve clinically but slowly Routine AM Continue current treatment Fioricet 1 tab Q6 PRN DAVALOS She is now on taper oral steroids dose Continue PT/OT/RT CM/SW for d/c planning Facial CT scan r/o sinusitis Additional orders as above Code status: 1 LOS > 96 hrs due to slow response to treatment
[2017-01-21] MEDS ORDERED: predniSONE 10 MG Tab PO SCH (08:00)
[2017-01-21] MEDS: predniSONE 20 MG Tab PO SCH (08:31)
[2017-01-21] MEDS: Sertraline 50 MG Tab PO SCH (08:32)
[2017-01-21] MEDS: Allopurinol 100 MG Tab PO SCH (08:32)
[2017-01-21] MEDS: Magnesium Oxide 400 MG Tab PO SCH ×2 (08:32→21:27)
[2017-01-21] MEDS: guaiFENesin 600 MG Tab.ER PO SCH ×2 (08:32→21:27)
[2017-01-21] MEDS: Lisinopril 10 MG Tab PO SCH (08:32)
[2017-01-21] MEDS: metFORMIN 500 MG Tab PO SCH ×2 (08:33→21:26)
[2017-01-21] MEDS: Theophylline 300 MG Tab.ER PO SCH ×2 (08:33→21:28)
[2017-01-21] MEDS: Aspirin 81 MG Tab.EC PO SCH (08:33)
[2017-01-21] MEDS: Nicotine 21 MG/24 Hr Patch TRDERM SCH (08:34)
[2017-01-21] MEDS: Acetaminophen/Butalbital/Caffeine 325-50-40 MG Tab PO PRN (10:00)
[2017-01-21] MEDS ORDERED: Amoxicillin/Clavulanate K 875-125 MG Tab PO ONE (16:15)
[2017-01-21] MEDS: Azithromycin 250 MG in Sodium Chloride 0.9% 250 ML IV SCH (17:14)
[2017-01-21] MEDS: Oxymetazoline 0.05% Nasal Spray 15 ML Bottle NAS SCH ×2 (17:38→21:29)
--- NOTE | 2017-01-21 19:58 | CT ---
CT maxillofacial Technique: Multiple axial sections were obtained through the paranasal sinuses. Reconstructed coronal and sagittal images were reviewed. Comparison: No prior study. Findings: Severe mucosal thickening is seen within both maxillary sinuses with questionable air-fluid levels on both sides. Moderate mucosal thickening is seen within the ethmoid sinuses and within the frontal sinuses as well as sphenoid sinus. No acute bony abnormality is seen. Large rosa bullosa is noted within the left middle nasal turbinate. Mild nasal septal deviation is seen. Impression: 1. Pansinusitis. Questionable air-fluid levels within both maxillary sinuses. 2. Large rosa bullosa within the left middle nasal turbinate. 3. Nasal septal deviation. Diagnostic code #3 Agree with preliminary report issued by [facility] ([facility] preliminary report dictated on 01/21/17, 3:05 PM Central Time)
[2017-01-21] MEDS: Simvastatin 10 MG Tab PO SCH (21:26)
[2017-01-21] MEDS: Amoxicillin/Clavulanate K 875-125 MG Tab PO SCH (21:27)
[2017-01-21] MEDS: INSULIN GLARGINE 100 UNIT/ML SUBCUT SCH (21:29)
[2017-01-22] MEDS: Acetaminophen/Butalbital/Caffeine 325-50-40 MG Tab PO PRN ×2 (03:14→09:25)
[2017-01-22] MEDS: Insulin Aspart 100 Units/ML 3 ML Pen SUBCUT SCH ×8 (07:06→22:19)
--- NOTE | 2017-01-22 07:15 | PCM.PN ---
- General Info Date of Service: 01/22/17 Admission Dx/Problem (Free Text): COPD Exacerbation pansinusitis Subjective Update: Pat is seen this morning. She was ambulating with PT, did fairly well. SOB is slowly improving. She continues to cough, also improving. Wheezing is significantly better. Sinuses still feel "pressure" and headache still present but "tolerable right now". Otherwise afebrile, no other new symptoms or concerns. Functional Status: Reports: Pain Controlled, Tolerating Diet, Ambulating, Urinating, Incentive Spirometry. Denies: New Symptoms - Review of Systems General: Denies: Fever HEENT: Reports: Headaches, Sinus Congestion, Sore Throat Pulmonary: Reports: Shortness of Breath (improving), Cough (improving), Wheezing (improving) Cardiovascular: Reports: Dyspnea on Exertion (improving). Denies: Chest Pain Gastrointestinal: Reports: No Symptoms. Denies: Abdominal Pain, Diarrhea, Nausea, Vomiting Genitourinary: Reports: No Symptoms - Patient Data Vitals - Most Recent: Last Vital Signs Temp 98.1 F 01/22/17 03:05 Pulse 82 01/22/17 03:05 Resp 24 H 01/22/17 03:05 BP 144/69 H 01/22/17 03:05 Pulse Ox 92 L 01/22/17 03:05 Weight - Most Recent: 240 lb 14.4 oz I&O - Last 24 Hours: Intake & Output 01/21/17 01/22/17 01/22/17 22:59 06:59 14:59 Intake Total 350 800 Output Total 850 Balance -500 800 Lab Results Last 24 Hours: Laboratory Results - last 24 hr 01/21/17 01/21/17 01/21/17 Range/Units 06:10 06:10 11:41 WBC 16.46 H (3.98-10.04) K/mm3 RBC 4.25 (3.98-5.22) M/mm3 Hgb 12.0 (11.2-15.7) gm/L Hct 38.4 (34.1-44.9) % MCV 90.4 (79.4-94.8) fl MCH 28.2 (25.6-32.2) pg MCHC 31.3 L (32.2-35.5) g/dl RDW Std Deviation 48.1 H (36.4-46.3) fL Plt Count 243 (182-369) K/mm3 MPV 10.0 (9.4-12.3) fl Neut % (Auto) 74.3 H (34.0-71.1) % Lymph % (Auto) 15.5 L (19.3-51.7) % [place] % (Auto) 9.0 (4.7-12.5) % Eos % (Auto) 0.4 L (0.7-5.8) Baso % (Auto) 0.1 (0.1-1.2) % Neut # (Auto) 12.25 H (1.56-6.13) K/mm3 Lymph # (Auto) 2.55 (1.18-3.74) K/mm3 [place] # (Auto) 1.48 H (0.24-0.36) K/mm3 Eos # (Auto) 0.06 (0.04-0.36) K/mm3 Baso # (Auto) 0.01 (0.01-0.08) K/mm3 Manual Slide Review Abnormal smear Sodium 139 (136-145) mEq/L Potassium 4.0 (3.5-5.1) mEq/L Chloride 102 (98-107) mEq/L Carbon Dioxide 33 H (21-32) mEq/L Anion Gap 8.0 (5-15) BUN 25 H (7-18) mg/dL Creatinine 0.8 (0.55-1.02) mg/dL Est Cr Clr Drug Dosing 62.24 mL/min Estimated GFR (MDRD) > 60 (>60) mL/min BUN/Creatinine Ratio 31.3 H (14-18) Glucose 86 (80-115) mg/dL POC Glucose 152 H (80-115) mg/dL Calcium 9.0 (8.5-10.1) mg/dL 01/21/17 01/21/17 Range/Units 17:08 21:25 WBC (3.98-10.04) K/mm3 RBC (3.98-5.22) M/mm3 Hgb (11.2-15.7) gm/L Hct (34.1-44.9) % MCV (79.4-94.8) fl MCH (25.6-32.2) pg MCHC (32.2-35.5) g/dl RDW Std Deviation (36.4-46.3) fL Plt Count (182-369) K/mm3 MPV (9.4-12.3) fl Neut % (Auto) (34.0-71.1) % Lymph % (Auto) (19.3-51.7) % [place] % (Auto) (4.7-12.5) % Eos % (Auto) (0.7-5.8) Baso % (Auto) (0.1-1.2) % Neut # (Auto) (1.56-6.13) K/mm3 Lymph # (Auto) (1.18-3.74) K/mm3 [place] # (Auto) (0.24-0.36) K/mm3 Eos # (Auto) (0.04-0.36) K/mm3 Baso # (Auto) (0.01-0.08) K/mm3 Manual Slide Review Sodium (136-145) mEq/L Potassium (3.5-5.1) mEq/L Chloride (98-107) mEq/L Carbon Dioxide (21-32) mEq/L Anion Gap (5-15) BUN (7-18) mg/dL Creatinine (0.55-1.02) mg/dL Est Cr Clr Drug Dosing mL/min Estimated GFR (MDRD) (>60) mL/min BUN/Creatinine Ratio (14-18) Glucose (80-115) mg/dL POC Glucose 289 H 248 H (80-115) mg/dL Calcium (8.5-10.1) mg/dL Med Orders - Current: Current Medications Acetaminophen (Tylenol) 650 mg PO Q4H PRN PRN Reason: Pain (Mild 1-3)/fever Last Admin: 01/21/17 12:54 Dose: 650 mg Acetaminophen/Butalbital/Caffeine (Fioricet 325-50-40 Mg) 1 tab PO Q6H PRN PRN Reason: Headache/Pain Last Admin: 01/22/17 03:14 Dose: 1 tab Hydrocodone Bitart/Acetaminophen ([place] 325-5 Mg) 1 tab PO Q4H PRN PRN Reason: Pain (moderate 4-6) Last Admin: 01/21/17 05:06 Dose: 1 tab Albuterol (Proventil Hfa) 0 gm INH BID PRN PRN Reason: Dyspnea Albuterol/Ipratropium (Duoneb 3.0-0.5 Mg/3 Ml) 3 ml NEB Q4H PRN PRN Reason: Shortness Of Breath/wheezing Last Admin: 01/21/17 23:34 Dose: 3 ml Allopurinol (Zyloprim) 100 mg PO DAILY [facility] Last Admin: 01/21/17 08:32 Dose: 100 mg Amoxicillin/Clavulanate Potassium (Augmentin 875 Mg/125 Mg) 1 tab PO Q12HR [facility] Last Admin: 01/21/17 21:27 Dose: 1 tab Aspirin (Halfprin) 81 mg PO DAILY [facility] Last Admin: 01/21/17 08:33 Dose: 81 mg Bisacodyl (Dulcolax) 5 mg PO DAILY PRN PRN Reason: Constipation Dextrose/Water (Dextrose 50% In Water) 50 ml IVPUSH ASDIRECTED PRN PRN Reason: Hypoglycemia Docusate Sodium (Colace) 100 mg PO BID PRN PRN Reason: Constipation Famotidine (Pepcid) 20 mg PO BID [facility] Flunisolide (Nasalide Nasal [place]) 0 ml NASBOTH BID [facility] Last Admin: 01/21/17 21:28 Dose: 2 spray Glipizide (Glucotrol Xl) 10 mg PO BIDMEALS [facility] Last Admin: 01/21/17 17:11 Dose: 10 mg Guaifenesin (Mucinex) 1,200 mg PO BID [facility] Last Admin: 01/21/17 21:27 Dose: 1,200 mg Hydralazine HCl (Apresoline) 20 mg IVPUSH Q4H PRN PRN Reason: Hypertension Insulin Aspart (Novolog) 4 unit SUBCUT QIDACANDBED [facility] Last Admin: 01/21/17 21:31 Dose: 4 units Insulin Aspart (Novolog) 0 unit SUBCUT QIDACANDBED [facility] PRN Reason: Protocol Last Admin: 01/22/17 07:06 Dose: Not Given Lisinopril (Prinivil) 10 mg PO DAILY [facility] Last Admin: 01/21/17 08:32 Dose: 10 mg Lorazepam (Ativan) 2 mg IVPUSH Q4H PRN PRN Reason: Seizures Lorazepam (Ativan) 1 mg IV Q6H PRN PRN Reason: Anxiety Magnesium Hydroxide (Milk Of Magnesia) 30 ml PO Q12H PRN PRN Reason: Constipation Magnesium Oxide (Magnesium Oxide) 400 mg PO BID [facility] Last Admin: 01/21/17 21:27 Dose: 400 mg Magnesium Sulfate (Pharmacy To Dose - Magnesium Replacement) 1 dose .XX ASDIRECTED [facility] Metformin HCl (Glucophage) 1,000 mg PO BID [facility] Last Admin: 01/21/17 21:26 Dose: 1,000 mg Metoprolol Tartrate (Lopressor) 5 mg IVPUSH Q4H PRN PRN Reason: Tachycardia Morphine Sulfate (Morphine) 2 mg IVPUSH Q4H PRN PRN Reason: other Last Admin: 01/18/17 21:40 Dose: 2 mg Nicotine (Habitrol) 21 mg TRDERM DAILY [facility] Last Admin: 01/21/17 08:34 Dose: 21 mg Ondansetron HCl (Zofran) 4 mg IV Q6H PRN PRN Reason: Nausea/Vomiting Oxymetazoline HCl (Afrin Original 0.05% Nasal [place]) 0 ml DEE BID [facility] Last Admin: 01/21/17 21:29 Dose: 2 spray Insulin Glargine 100 (Units/Ml 3 Ml Pen) 0 each SUBCUT BEDTIME [facility] Last Admin: 01/21/17 21:29 Dose: 45 each Polyethylene Glycol (Miralax) 17 gm PO DAILY PRN PRN Reason: Constipation Potassium Chloride (Pharmacy To Dose - Potassium Replacement) 1 dose .XX ASDIRECTED [facility] Prednisone (Prednisone) 60 mg PO DAILY [facility] Stop: 01/23/17 09:01 Last Admin: 01/21/17 08:31 Dose: 60 mg Prednisone (Prednisone) 40 mg PO DAILY [facility] Stop: 01/26/17 09:01 Prednisone (Prednisone) 20 mg PO DAILY [facility] Stop: 01/29/17 09:01 Prednisone (Prednisone) 10 mg PO DAILY [facility] Stop: 02/01/17 09:01 Senna/Docusate Sodium (Senna Plus) 1 tab PO BID PRN PRN Reason: Constipation Sertraline HCl (Zoloft) 50 mg PO DAILY [facility] Last Admin: 01/21/17 08:32 Dose: 50 mg Simvastatin (Zocor) 5 mg PO BEDTIME [facility] Last Admin: 01/21/17 21:26 Dose: 5 mg Sodium Chloride (Saline Flush) 10 ml FLUSH ASDIRECTED PRN PRN Reason: Keep Vein Open Last Admin: 01/16/17 15:23 Dose: 10 ml Temazepam (Restoril) 7.5 mg PO BEDTIME PRN PRN Reason: Sleep Last Admin: 01/18/17 19:49 Dose: 7.5 mg Theophylline (Theophylline Anhydrous) 150 mg PO BID [facility] Last Admin: 01/21/17 21:28 Dose: 150 mg Tiotropium [place] (Spiriva Handihaler) 18 mcg INH DAILY PRN PRN Reason: Dyspnea Discontinued Medications Albuterol (Proventil Neb Soln) 2.5 mg NEB ONETIME ONE Stop: 01/16/17 16:08 Last Admin: 01/16/17 16:19 Dose: 2.5 mg Albuterol/Ipratropium (Duoneb 3.0-0.5 Mg/3 Ml) Confirm Administered Dose 3 ml .ROUTE .STK-MED ONE Stop: 01/16/17 15:29 Last Admin: 01/16/17 15:33 Dose: Not Given Albuterol/Ipratropium (Duoneb 3.0-0.5 Mg/3 Ml) Confirm Administered Dose 3 ml .ROUTE .STK-MED ONE Stop: 01/16/17 15:29 Last Admin: 01/16/17 15:33 Dose: Not Given Albuterol/Ipratropium (Duoneb 3.0-0.5 Mg/3 Ml) 3 ml NEB ONETIME ONE Stop: 01/16/17 15:29 Last Admin: 01/16/17 15:33 Dose: 3 ml Amoxicillin/Clavulanate Potassium (Augmentin 875 Mg/125 Mg) 1 tab PO ONETIME ONE Stop: 01/21/17 16:16 Last Admin: 01/21/17 17:10 Dose: 1 tab Azithromycin 250 mg/ Sodium (Chloride) 250 mls @ 250 mls/hr IV ONETIME ONE Stop: 01/16/17 18:08 Last Admin: 01/16/17 20:27 Dose: Not Given Azithromycin 250 mg/ Sodium (Chloride) 250 mls @ 250 mls/hr IV Q24H [facility] Last Admin: 01/16/17 17:53 Dose: Not Given Promethazine HCl 12.5 mg/ (Sodium Chloride) 50.5 mls @ 100 mls/hr IV Q6H PRN PRN Reason: Nausea/Vomiting Magnesium Sulfate 2 gm/ Premix 50 mls @ 25 mls/hr IV ONETIME ONE Stop: 01/16/17 19:23 Last Admin: 01/16/17 18:49 Dose: 25 mls/hr Azithromycin 250 mg/ Sodium (Chloride) 250 mls @ 250 mls/hr IV Q24H [place] Last Admin: 01/21/17 17:14 Dose: 250 mls/hr Azithromycin 250 mg/ Sodium (Chloride) 250 mls @ 250 mls/hr IV ONETIME ONE Stop: 01/16/17 21:14 Last Admin: 01/16/17 20:46 Dose: 250 mls/hr Aminophylline 325 mg/ Sodium (Chloride) 100 mls @ 200 mls/hr IV ONETIME ONE Stop: 01/18/17 14:59 Last Admin: 01/18/17 14:31 Dose: 200 mls/hr Aminophylline 500 mg/ Sodium (Chloride) 500 mls @ 20.833 mls/hr IV ONETIME ONE Stop: 01/19/17 16:59 Last Admin: 01/18/17 17:39 Dose: 20.833 mls/hr Insulin Aspart (Novolog) 0 unit SUBCUT QIDACANDBED [facility] PRN Reason: Protocol Last Admin: 01/18/17 22:21 Dose: Not Given Insulin Aspart (Novolog) 0 unit SUBCUT QIDACANDBED PRN; Protocol PRN Reason: Hyperglycemia Last Admin: 01/20/17 13:03 Dose: 3 units Methylprednisolone Sodium Succinate (Solu-Medrol) 125 mg IVPUSH ONETIME ONE Stop: 01/16/17 15:29 Last Admin: 01/16/17 15:39 Dose: 125 mg Methylprednisolone Sodium Succinate (Solu-Medrol) 125 mg IVPUSH ONETIME ONE Stop: 01/16/17 21:01 Last Admin: 01/16/17 20:46 Dose: 125 mg Methylprednisolone Sodium Succinate (Solu-Medrol) 125 mg IVPUSH Q8H [facility] Last Admin: 01/16/17 17:53 Dose: Not Given Methylprednisolone Sodium Succinate (Solu-Medrol) 125 mg IVPUSH Q8H [facility] Methylprednisolone Sodium Succinate (Solu-Medrol) 80 mg IVPUSH Q8H [facility] Methylprednisolone Sodium Succinate (Solu-Medrol) 125 mg IVPUSH Q8H [facility] Methylprednisolone Sodium Succinate (Solu-Medrol) 80 mg IVPUSH Q8H [facility] Methylprednisolone Sodium Succinate (Solu-Medrol) 80 mg IVPUSH Q8H [facility] Last Admin: 01/19/17 06:28 Dose: 80 mg Methylprednisolone Sodium Succinate (Solu-Medrol) 40 mg IVPUSH Q12H [facility] Stop: 01/20/17 12:00 Last Admin: 01/20/17 06:35 Dose: 40 mg Morphine Sulfate (Morphine) 1 mg IVPUSH Q4H PRN PRN Reason: Other Stop: 01/17/17 17:13 Last Admin: 01/17/17 09:18 Dose: 1 mg Nicotine (Habitrol) 21 mg TRDERM ONETIME ONE Stop: 01/16/17 19:12 Last Admin: 01/16/17 19:53 Dose: 21 mg Insulin Degludec 45 (Units (Tresiba)) 0 each SUBCUT BEDTIME [facility] Last Admin: 01/17/17 21:22 Dose: Not Given Prednisone (Prednisone) 0 mg PO .TAPER [facility] PRN Reason: Taper Stop: 02/02/17 07:59 Theophylline (Theophylline Anhydrous) 200 mg PO BID [facility] Last Admin: 01/19/17 11:39 Dose: Not Given Theophylline (Theophylline Anhydrous) 200 mg PO BID [facility] Last Admin: 01/19/17 13:11 Dose: Not Given Theophylline (Theophylline Anhydrous) 100 mg PO BID [place] - Exam Quality Assessment: Supplemental Oxygen, DVT Prophylaxis General: Alert, Oriented, Cooperative, No Acute Distress HEENT: Pupils Equal, EOMI, Mucous Membr. Moist/[place] Neck: Supple Lungs: Normal Respiratory Effort, Decreased Breath Sounds (throughout), Rhonchi (exp), Wheezing (significantly improved from last exam by this provider on Sunday - 3 days ago. Minimal exp wheeze noted today) Cardiovascular: Regular Rate, Regular Rhythm GI/Abdominal Exam: Normal Bowel Sounds, Soft, Non-Tender (Female) Exam: Deferred Extremities: Normal Inspection, No Pedal Edema, Normal Capillary Refill Peripheral Pulses: 2+: Dorsalis Pedis (L), Dorsalis Pedis (R) Neurological: No New Focal Deficit Psy/Mental Status: Alert, Normal Affect, Normal Mood - Problem List & Annotations (1) COPD exacerbation SNOMED Code(s): 718747124, 248315598 Code(s): J44.1 - CHRONIC OBSTRUCTIVE PULMONARY DISEASE W (ACUTE) EXACERBATION Status: Acute Priority: High Current Visit: Yes (2) Hypoxia SNOMED Code(s): 333998600, 892735774 Code(s): R09.02 - HYPOXEMIA Status: Acute Priority: High Current Visit : Yes (3) Acute bronchitis SNOMED Code(s): 56887550 Code(s): J20.9 - ACUTE BRONCHITIS, UNSPECIFIED Status: Acute Priority: High Current Visit: Yes Qualifiers: Bronchitis organism: unspecified organism Qualified Code(s): J20.9 - Acute bronchitis, unspecified (4) Diabetes type 2, uncontrolled SNOMED Code(s): 35785159, 656846158 Code(s): E11.65 - TYPE 2 DIABETES MELLITUS WITH HYPERGLYCEMIA Status: Chronic Priority: Medium Current Visit: Yes Qualifiers: Diabetes mellitus complication status: without complication Diabetes mellitus 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 Qualified Code(s): E11.65 - Type 2 diabetes mellitus with hyperglycemia; Z79.4 - 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 insulin (5) Tobacco use disorder SNOMED Code(s): 030402163, 188311514 Code(s): F17.200 - NICOTINE DEPENDENCE, UNSPECIFIED, UNCOMPLICATED Status: Chronic Priority: High Current Visit: Yes (6) Pansinusitis SNOMED Code(s): 803998640 Code(s): J32.4 - CHRONIC PANSINUSITIS Status: Acute Priority: High Current Visit: Yes Qualifiers: Chronicity: acute Recurrence: not specified as recurrent Qualified Code(s ): J01.40 - Acute pansinusitis, unspecified - Problem List Review Problem List Initiated/Reviewed/Updated: Yes - My Orders Last 24 Hours: My Active Orders 01/21/17 09:00 predniSONE 60 mg PO DAILY 01/22/17 06:38 BASIC METABOLIC PANEL,BMP [CHEM] Routine C-REACTIVE PROTEIN [CHEM] Routine CBC WITH AUTO DIFF [HEME] Routine MAGNESIUM [CHEM] Routine 01/22/17 07:15 Famotidine [Pepcid] 20 mg PO BID 01/24/17 09:00 predniSONE 40 mg PO DAILY 01/27/17 09:00 predniSONE 20 mg PO DAILY 01/30/17 09:00 predniSONE 10 mg PO DAILY - Assessment Assessment:: Assessment/Plan: Acute: COPD Exacerbation/Acute bronchitis - 2/2 Non-compliance; continues to smoke- carries at least 40pk yr hx - CXR shows no infiltrate- decreased left mid-lung atelectasis----repeat CXR was with improvements noted - Continue Oral taper steroid dose, Bronchodilators, Mucinex, Mag-Ox 400 mg po BID, Theophyllin 150mg po BID and Supplemental O2- attempt to wean - PRN IV 2 mg Morphine for Dyspnea Leukocytosis - Continues to improved - 2/2 above - She is on steroids DM2 with Hyperglycemia - BS in the 200-300a - On Glipizide, Metformin and Insulin regimen - A1C is 7.40 - Accu-check QID/HS - Change ISS level to High dose coverage - CDE following Tobacco Abuse - Nicotine Patch Daily - Counseled on Smoking Cessation- she is willing/wanting to quit at this time Pansinusitis with Headache and Facial Tenderness - Facial CT with report showing pansinusitis - Augmentin, nasal steroid spray, mucinex, PO steroid - Pain management for headache PRN Chronic: Impaired Vision, Retinal Detachment HTN COPD/Asthma Nocturnal Hypoxemia, Uses 2L of O2 at night Hx/o Renal Stones Hx/o Recurrent UTI GOUT OA DM2 Migraines DAVALOS Anxiety Depression Obesity with BMI of 41.6 Other: GI/DVT prophylax PT/OT RT- IS/Nebs AM labs CM/SW for assist with DC planning---have been unable to wean supplemental oxygen with worsening over the weekend with acute sinusitis development; discharge likely in next 1-2 days pending progress. LOS >96 hours due to slower than expected course of improvement. Patient is Full code status
[2017-01-22] MEDS: glipiZIDE 5 MG Tab.ER PO SCH ×2 (07:49→16:59)
[2017-01-22] MEDS: Famotidine 20 MG Tab PO SCH ×3 (07:53→22:16)
[2017-01-22] MEDS: Albuterol/Ipratropium 3.0-0.5 MG/3 ML Neb Soln NEB PRN (08:16)
[2017-01-22] MEDS: Nicotine 21 MG/24 Hr Patch TRDERM SCH (09:18)
[2017-01-22] MEDS: Oxymetazoline 0.05% Nasal Spray 15 ML Bottle NAS SCH ×2 (09:18→22:13)
[2017-01-22] MEDS: Theophylline 300 MG Tab.ER PO SCH (09:23)
[2017-01-22] MEDS: metFORMIN 500 MG Tab PO SCH ×2 (09:24→22:14)
[2017-01-22] MEDS: predniSONE 20 MG Tab PO SCH (09:24)
[2017-01-22] MEDS: Sertraline 50 MG Tab PO SCH (09:24)
[2017-01-22] MEDS: Aspirin 81 MG Tab.EC PO SCH (09:24)
[2017-01-22] MEDS: Lisinopril 10 MG Tab PO SCH (09:24)
[2017-01-22] MEDS: guaiFENesin 600 MG Tab.ER PO SCH ×2 (09:25→22:15)
[2017-01-22] MEDS: Magnesium Oxide 400 MG Tab PO SCH ×2 (09:25→22:16)
[2017-01-22] MEDS: Allopurinol 100 MG Tab PO SCH (09:25)
[2017-01-22] MEDS: Amoxicillin/Clavulanate K 875-125 MG Tab PO SCH ×2 (09:25→22:14)
[2017-01-22] MEDS: Acetaminophen/HYDROcodone 325-5 MG Tab PO PRN (10:21)
[2017-01-22] MEDS: Simvastatin 10 MG Tab PO SCH (22:14)
[2017-01-22] MEDS: INSULIN GLARGINE 100 UNIT/ML SUBCUT SCH (22:18)
[2017-01-23] MEDS: Insulin Aspart 100 Units/ML 3 ML Pen SUBCUT SCH ×4 (06:27→10:54)
[2017-01-23] MEDS: glipiZIDE 5 MG Tab.ER PO SCH (06:27)
[2017-01-23] MEDS: Acetaminophen/Butalbital/Caffeine 325-50-40 MG Tab PO PRN (06:57)
[2017-01-23] MEDS: Lisinopril 10 MG Tab PO SCH (08:26)
[2017-01-23] MEDS: Aspirin 81 MG Tab.EC PO SCH (08:26)
[2017-01-23] MEDS: Allopurinol 100 MG Tab PO SCH (08:26)
[2017-01-23] MEDS: Sertraline 50 MG Tab PO SCH (08:26)
[2017-01-23] MEDS: predniSONE 20 MG Tab PO SCH (08:26)
[2017-01-23] MEDS: guaiFENesin 600 MG Tab.ER PO SCH (08:26)
[2017-01-23] MEDS: Amoxicillin/Clavulanate K 875-125 MG Tab PO SCH (08:26)
[2017-01-23] MEDS: Nicotine 21 MG/24 Hr Patch TRDERM SCH (08:27)
[2017-01-23] MEDS: Magnesium Oxide 400 MG Tab PO SCH (08:27)
[2017-01-23] MEDS: Famotidine 20 MG Tab PO SCH (08:27)
[2017-01-23] MEDS: Oxymetazoline 0.05% Nasal Spray 15 ML Bottle NAS SCH (08:27)
[2017-01-23] MEDS: metFORMIN 500 MG Tab PO SCH (08:45)
[2017-01-23] MEDS: Albuterol/Ipratropium 3.0-0.5 MG/3 ML Neb Soln NEB PRN (09:27)
--- NOTE | 2017-01-23 11:01 | PCM.DCSUM1 ---
Discharge Summary - Hospital Course Free Text/Narrative:: This is a 66 yo elderly white female with past medical hx/o Impaired Vision, Retinal Detachment, HTN, Hx/o Renal Stones, Hx/o Recurrent UTI, Gout, OA, DM2, Migraines DAVALOS, Anxiety, Depression, and Obesity with BMI of > 30 who presents to the emergency department for worsening shortness of breath. Her chief complaint is associated with productive cough of yellow-greenish sputum, some chills, nasal and sinus congestion, and sore throat. She denies any signs of systemic infection. She carries a history of Asthma/COPD. She is still an smoker. She also carries a history of nocturnal hypoxemia and uses supplemental O2 2L [place] at night. Her initial workup in emergency department shows a CBC remarkable for WBC of 14.78, MCHC of 31.1%, RDW of 49.9, neutrophils of 77%, and lymphocytes of 13.1% . Her chemistry is remarkable for BUN of 22, creatinine of 1.1, glucose of 281, and CRP of 6.6. Patient currently is on 3 L nasal cannula with an O2 sat greater than 90%. Her chest x-ray shows no acute abnormal findings. Patient is being admitted for COPD exacerbation. She received initial treatment in the emergency department before she was sent to the floor for further management. She is full code. She was treated with IV solumedrol, IV zithromax, aggressive pulmonary toilet and supplemental oxygen for COPD exacerbation, started on spiriva inhaler. She developed pansinusitis, confirmed with facial/sinus CT which caused exacerbation of symptoms over the weekend- increasing supplemental oxygen requirements again. IV steroids were tapered to decreasing PO predisone taper. She was started on PO Augmentin BID for sinusitis along with nasal washings and steroid sprays. RT worked with her. She was qualified for home oxygen at 3L/NC. She will be discharged home today with follow up with PCP, Dr. Ashley within 5- 7 days for recheck, reassessment of supplemental oxygen requirements. Discuss with PCP need for consult with Wound Treatment Rn. She will be dc'd on Augmentin PO, prednisone taper, spiriva, duonebs and nicotine patch. Smoking cessation is advised and she is counseled on this. - Discharge Data Discharge Date: 01/23/17 (admit date01/16/17) Discharge Disposition: Home, Self-Care 01 Condition: Fair - Discharge Diagnosis/Problem(s) (1) COPD exacerbation SNOMED Code(s): 989211493, 664859664 ICD Code: J44.1 - CHRONIC OBSTRUCTIVE PULMONARY DISEASE W (ACUTE) EXACERBATION Status: Acute Priority: High Current Visit: Yes (2) Hypoxia SNOMED Code(s): 142846336, 152442094 ICD Code: R09.02 - HYPOXEMIA Status: Acute Priority: High Current Visit : Yes (3) Acute bronchitis SNOMED Code(s): 08834329 ICD Code: J20.9 - ACUTE BRONCHITIS, UNSPECIFIED Status: Acute Priority: High Current Visit: Yes Qualifiers: Bronchitis organism: unspecified organism Qualified Code(s): J20.9 - Acute bronchitis, unspecified (4) Diabetes type 2, uncontrolled SNOMED Code(s): 57857674, 605605957 ICD Code: E11.65 - TYPE 2 DIABETES MELLITUS WITH HYPERGLYCEMIA Status: Chronic Priority: Medium Current Visit: Yes Qualifiers: Diabetes mellitus complication status: without complication Diabetes mellitus long-term insulin use: with long-term use Qualified Code(s): E11.65 - Type 2 diabetes mellitus with hyperglycemia; Z79.4 - FPC (current) use of insulin (5) Tobacco use disorder SNOMED Code(s): 859802705, 264053381 ICD Code: F17.200 - NICOTINE DEPENDENCE, UNSPECIFIED, UNCOMPLICATED Status : Chronic Priority: High Current Visit: Yes (6) Pansinusitis SNOMED Code(s): 101359350 ICD Code: J32.4 - CHRONIC PANSINUSITIS Status: Acute Priority: High Current Visit: Yes Qualifiers: Chronicity: acute Recurrence: not specified as recurrent Qualified Code(s ): J01.40 - Acute pansinusitis, unspecified - Patient Summary/Data Operative Procedure(s) Performed: None Complications: None Consults: Consultations 01/16/17 23:22 Consult to Learning Support Assistant [Consult to Diabetic Nurse Specialist] [CONS] Routine Consult to Payable Representative [CONS] Routine Labs Pending at D/C: None Recommended Follow-up Testing/Procedures: Patient DC instructions: Oxygen at home continuously at 3 liter per nasal cannula Check Blood sugars 4 times daily - before meals and at bedtime, and record; take record with to all Dr. french Nebulizer every 6 hours Decreasing steroid/prednisone taper- 40mg daily x 3 days, 20mg daily x 3 days, 10mg daily x 3 days then stop--do not take meloxicam while taking prednisone as this can be very hard on your stomach/cause stomach ulcers. Follow up with PCP, Dr. Ashley within one week of discharge; recommend Wound Treatment Rn Consult--discuss this with Dr. Ashley. Planned Operative Procedure(s) after DC: None Hospital Course: As above - Patient Instructions Diet: Usual Diet as Tolerated, Diabetic Diet Activity: As Tolerated Showering/Bathing: May Shower Notify Provider of: Fever, Increased Pain (increased cough or shortness of breath) - Discharge Plan Prescriptions/Med Rec: Amoxicillin/Clavulanate K [Augmentin 875 MG/125 MG] 1 tab PO Q12HR #16 tablet Acetaminophen/Butalbital/Caff [Fioricet 325-50-40 MG] 1 tab PO Q6H PRN #30 tablet PRN Reason: Headache Albuterol/Ipratropium [DuoNeb 3.0-0.5 MG/3 ML] 3 ml NEB Q6H #1 box Famotidine [Pepcid] 20 mg PO BID #60 tablet guaiFENesin [Mucinex] 1,200 mg PO BID #60 tab.er Magnesium Oxide 400 mg PO BID #60 tablet Nicotine [Habitrol] 21 mg TRDERM DAILY #30 patch Prednisone [IJD: predniSONE] 20 mg PO DAILY #3 tablet Prednisone [IJD: predniSONE] 40 mg PO DAILY #3 tablet predniSONE 10 mg PO DAILY #3 tablet Tiotropium [Spiriva HandiHaler] 18 mcg INH DAILY #30 cap Home Medications: Home Meds Allopurinol [Zyloprim] 0 mg PO DAILY 04/18/15 [History] Aspirin [Sacha Chewable Aspirin] 81 mg PO DAILY 04/18/15 [History] Lisinopril 10 mg PO DAILY 04/18/15 [History] Lovastatin 10 mg PO BEDTIME 04/18/15 [History] metFORMIN [Glucophage] 1,000 mg PO BID 04/18/15 [History] Ipratropium/Albuterol Sulfate [Combivent Respimat Inhal [place]] 1 puff INFILT BID PRN 08/26/15 [History] Sertraline [Zoloft] 1 tab PO DAILY 08/26/15 [History] Insulin Degludec [Tresiba Flextouch U-200] 45 unit SQ BEDTIME 01/16/17 [History] Acetaminophen/Butalbital/Caff [Fioricet 325-50-40 MG] 1 tab PO Q6H PRN #30 tablet 01/23/17 [Rx] Albuterol/Ipratropium [DuoNeb 3.0-0.5 MG/3 ML] 3 ml NEB Q6H #1 box 01/23/17 [Rx] Amoxicillin/Clavulanate K [Augmentin 875 MG/125 MG] 1 tab PO Q12HR #16 tablet [Rx] Famotidine [Pepcid] 20 mg PO BID #60 tablet 01/23/17 [Rx] Magnesium Oxide 400 mg PO BID #60 tablet 01/23/17 [Rx] Nicotine [Habitrol] 21 mg TRDERM DAILY #30 patch 01/23/17 [Rx] Prednisone [IJD: predniSONE] 20 mg PO DAILY #3 tablet 01/23/17 [Rx] Prednisone [IJD: predniSONE] 40 mg PO DAILY #3 tablet 01/23/17 [Rx] Tiotropium [Spiriva HandiHaler] 18 mcg INH DAILY #30 cap 01/23/17 [Rx] glipiZIDE [Glipizide ER] 10 mg PO BID #60 01/23/17 [Rx] guaiFENesin [Mucinex] 1,200 mg PO BID #60 tab.er 01/23/17 [Rx] predniSONE 10 mg PO DAILY #3 tablet 01/23/17 [Rx] Patient Handouts: Chronic Obstructive Pulmonary Disease Exacerbation, Easy-to- Read, Smoking Cessation, Tips for Success, [id number], How to Use a Nebulizer , Chronic Obstructive Pulmonary Disease, [id number], Oxygen Use at Home, Tobacco Use Disorder Forms: ED Department Discharge Referrals: Gracy Ashley DO [Primary Care Provider] - - Discharge Summary/Plan Comment DC Time >30 min.: Yes (40 min) - General Info Date of Service: 01/23/17 Functional Status: Reports: Pain Controlled, Tolerating Diet, Ambulating, Urinating, Incentive Spirometry. Denies: New Symptoms - Review of Systems General: Reports: No Symptoms, Weakness (improving), Fatigue HEENT: Reports: No Symptoms Pulmonary: Reports: Shortness of Breath (improving), Cough (improving), Sputum ( improved), Wheezing (improved to near resolved) Cardiovascular: Reports: No Symptoms, Dyspnea on Exertion (much improved). Denies: Chest Pain, Palpitations Gastrointestinal: Reports: No Symptoms Genitourinary: Reports: No Symptoms Musculoskeletal: Reports: No Symptoms Skin: Reports: No Symptoms Neurological: Reports: No Symptoms Psychiatric: Reports: No Symptoms - Patient Data Vitals - Most Recent: Last Vital Signs Temp 98.1 F 01/23/17 08:25 Pulse 87 01/23/17 08:25 Resp 18 01/23/17 08:25 BP 145/66 H 01/23/17 08:26 Pulse Ox 83 L 01/23/17 09:30 Weight - Most Recent: 240 lb 14.4 oz I&O - Last 24 hours: Intake & Output 01/22/17 01/23/17 01/23/17 22:59 06:59 14:59 Intake Total 1720 900 160 Output Total 400 1150 Balance 1320 -250 160 Lab Results - Last 24 hrs: Laboratory Results - last 24 hr 01/22/17 01/22/17 01/23/17 Range/Units 16:52 22:02 06:09 WBC (3.98-10.04) K/mm3 RBC (3.98-5.22) M/mm3 Hgb (11.2-15.7) gm/L Hct (34.1-44.9) % MCV (79.4-94.8) fl MCH (25.6-32.2) pg MCHC (32.2-35.5) g/dl RDW Std Deviation (36.4-46.3) fL Plt Count (182-369) K/mm3 MPV (9.4-12.3) fl Neut % (Auto) (34.0-71.1) % Lymph % (Auto) (19.3-51.7) % [place] % (Auto) (4.7-12.5) % Eos % (Auto) (0.7-5.8) Baso % (Auto) (0.1-1.2) % Neut # (Auto) (1.56-6.13) K/mm3 Lymph # (Auto) (1.18-3.74) K/mm3 [place] # (Auto) (0.24-0.36) K/mm3 Eos # (Auto) (0.04-0.36) K/mm3 Baso # (Auto) (0.01-0.08) K/mm3 Manual Slide Review Sodium (136-145) mEq/L Potassium (3.5-5.1) mEq/L Chloride (98-107) mEq/L Carbon Dioxide (21-32) mEq/L Anion Gap (5-15) BUN (7-18) mg/dL Creatinine (0.55-1.02) mg/dL Est Cr Clr Drug Dosing mL/min Estimated GFR (MDRD) (>60) mL/min BUN/Creatinine Ratio (14-18) Glucose (80-115) mg/dL POC Glucose 387 H 214 H 55 L (80-115) mg/dL Calcium (8.5-10.1) mg/dL C-Reactive Protein (<1.0) mg/dL 01/23/17 01/23/17 01/23/17 Range/Units 06:25 06:25 06:42 WBC 28.67 H (3.98-10.04) K/mm3 RBC 4.55 (3.98-5.22) M/mm3 Hgb 12.9 (11.2-15.7) gm/L Hct 40.9 (34.1-44.9) % MCV 89.9 (79.4-94.8) fl MCH 28.4 (25.6-32.2) pg MCHC 31.5 L (32.2-35.5) g/dl RDW Std Deviation 48.2 H (36.4-46.3) fL Plt Count 385 H (182-369) K/mm3 MPV 9.9 (9.4-12.3) fl Neut % (Auto) 65.8 (34.0-71.1) % Lymph % (Auto) 23.1 (19.3-51.7) % [place] % (Auto) 7.7 (4.7-12.5) % Eos % (Auto) 0.9 (0.7-5.8) Baso % (Auto) 0.2 (0.1-1.2) % Neut # (Auto) 18.84 H (1.56-6.13) K/mm3 Lymph # (Auto) 6.63 H (1.18-3.74) K/mm3 [place] # (Auto) 2.20 H (0.24-0.36) K/mm3 Eos # (Auto) 0.27 (0.04-0.36) K/mm3 Baso # (Auto) 0.06 (0.01-0.08) K/mm3 Manual Slide Review Abnormal smear Sodium 137 (136-145) mEq/L Potassium 3.9 (3.5-5.1) mEq/L Chloride 97 L (98-107) mEq/L Carbon Dioxide 35 H (21-32) mEq/L Anion Gap 8.9 (5-15) BUN 26 H (7-18) mg/dL Creatinine 0.9 (0.55-1.02) mg/dL Est Cr Clr Drug Dosing 55.33 mL/min Estimated GFR (MDRD) > 60 (>60) mL/min BUN/Creatinine Ratio 28.9 H (14-18) Glucose 55 L (80-115) mg/dL POC Glucose 96 (80-115) mg/dL Calcium 9.9 (8.5-10.1) mg/dL C-Reactive Protein 4.8 H* (<1.0) mg/dL 01/23/17 Range/Units 10:49 WBC (3.98-10.04) K/mm3 RBC (3.98-5.22) M/mm3 Hgb (11.2-15.7) gm/L Hct (34.1-44.9) % MCV (79.4-94.8) fl MCH (25.6-32.2) pg MCHC (32.2-35.5) g/dl RDW Std Deviation (36.4-46.3) fL Plt Count (182-369) K/mm3 MPV (9.4-12.3) fl Neut % (Auto) (34.0-71.1) % Lymph % (Auto) (19.3-51.7) % [place] % (Auto) (4.7-12.5) % Eos % (Auto) (0.7-5.8) Baso % (Auto) (0.1-1.2) % Neut # (Auto) (1.56-6.13) K/mm3 Lymph # (Auto) (1.18-3.74) K/mm3 [place] # (Auto) (0.24-0.36) K/mm3 Eos # (Auto) (0.04-0.36) K/mm3 Baso # (Auto) (0.01-0.08) K/mm3 Manual Slide Review Sodium (136-145) mEq/L Potassium (3.5-5.1) mEq/L Chloride (98-107) mEq/L Carbon Dioxide (21-32) mEq/L Anion Gap (5-15) BUN (7-18) mg/dL Creatinine (0.55-1.02) mg/dL Est Cr Clr Drug Dosing mL/min Estimated GFR (MDRD) (>60) mL/min BUN/Creatinine Ratio (14-18) Glucose (80-115) mg/dL POC Glucose 213 H (80-115) mg/dL Calcium (8.5-10.1) mg/dL C-Reactive Protein (<1.0) mg/dL Med Orders - Current: Current Medications Acetaminophen (Tylenol) 650 mg PO Q4H PRN PRN Reason: Pain (Mild 1-3)/fever Last Admin: 01/21/17 12:54 Dose: 650 mg Acetaminophen/Butalbital/Caffeine (Fioricet 325-50-40 Mg) 1 tab PO Q6H PRN PRN Reason: Headache/Pain Last Admin: 01/23/17 06:57 Dose: 1 tab Hydrocodone Bitart/Acetaminophen ([place] 325-5 Mg) 1 tab PO Q4H PRN PRN Reason: Pain (moderate 4-6) Last Admin: 01/22/17 10:21 Dose: 1 tab Albuterol (Proventil Hfa) 0 gm INH BID PRN PRN Reason: Dyspnea Albuterol/Ipratropium (Duoneb 3.0-0.5 Mg/3 Ml) 3 ml NEB Q4H PRN PRN Reason: Shortness Of Breath/wheezing Last Admin: 01/23/17 09:27 Dose: 3 ml Allopurinol (Zyloprim) 100 mg PO DAILY COUNTS INCLUDE 234 BEDS AT THE [facility] Last Admin: 01/23/17 08:26 Dose: 100 mg Amoxicillin/Clavulanate Potassium (Augmentin 875 Mg/125 Mg) 1 tab PO Q12HR [place] Last Admin: 01/23/17 08:26 Dose: 1 tab Aspirin (Halfprin) 81 mg PO DAILY COUNTS INCLUDE 234 BEDS AT THE [facility] Last Admin: 01/23/17 08:26 Dose: 81 mg Bisacodyl (Dulcolax) 5 mg PO DAILY PRN PRN Reason: Constipation Dextrose/Water (Dextrose 50% In Water) 50 ml IVPUSH ASDIRECTED PRN PRN Reason: Hypoglycemia Docusate Sodium (Colace) 100 mg PO BID PRN PRN Reason: Constipation Famotidine (Pepcid) 20 mg PO BID COUNTS INCLUDE 234 BEDS AT [facility] Last Admin: 01/23/17 08:27 Dose: 20 mg Flunisolide (Nasalide Nasal [place]) 0 ml NASBOTH BID COUNTS INCLUDE 234 BEDS AT THE [facility] Last Admin: 01/23/17 08:27 Dose: 2 spray Glipizide (Glucotrol Xl) 10 mg PO BIDMEALS COUNTS INCLUDE 234 BEDS AT [facility] Last Admin: 01/23/17 06:27 Dose: Not Given Guaifenesin (Mucinex) 1,200 mg PO BID COUNTS INCLUDE 234 BEDS AT [facility] Last Admin: 01/23/17 08:26 Dose: 1,200 mg Hydralazine HCl (Apresoline) 20 mg IVPUSH Q4H PRN PRN Reason: Hypertension Insulin Aspart (Novolog) 4 unit SUBCUT QIDACANDBED COUNTS INCLUDE 234 BEDS AT THE [facility] Last Admin: 01/23/17 10:54 Dose: 4 units Insulin Aspart (Novolog) 0 unit SUBCUT QIDACANDBED COUNTS INCLUDE 234 BEDS AT THE [facility] PRN Reason: Protocol Last Admin: 01/23/17 10:54 Dose: 6 units Lisinopril (Prinivil) 10 mg PO DAILY COUNTS INCLUDE 234 BEDS AT [facility] Last Admin: 01/23/17 08:26 Dose: 10 mg Lorazepam (Ativan) 1 mg IV Q6H PRN PRN Reason: Anxiety Magnesium Hydroxide (Milk Of Magnesia) 30 ml PO Q12H PRN PRN Reason: Constipation Magnesium Oxide (Magnesium Oxide) 400 mg PO BID COUNTS INCLUDE 234 BEDS AT [facility] Last Admin: 01/23/17 08:27 Dose: 400 mg Magnesium Sulfate (Pharmacy To Dose - Magnesium Replacement) 1 dose .XX ASDIRECTED COUNTS INCLUDE 234 BEDS AT THE [facility] Metformin HCl (Glucophage) 1,000 mg PO BID COUNTS INCLUDE 234 BEDS AT THE [facility] Last Admin: 01/23/17 08:45 Dose: 1,000 mg Metoprolol Tartrate (Lopressor) 5 mg IVPUSH Q4H PRN PRN Reason: Tachycardia Morphine Sulfate (Morphine) 2 mg IVPUSH Q4H PRN PRN Reason: other Last Admin: 01/18/17 21:40 Dose: 2 mg Nicotine (Habitrol) 21 mg TRDERM DAILY COUNTS INCLUDE 234 BEDS AT [facility] Last Admin: 01/23/17 08:27 Dose: 21 mg Ondansetron HCl (Zofran) 4 mg IV Q6H PRN PRN Reason: Nausea/Vomiting Oxymetazoline HCl (Afrin Original 0.05% Nasal [place]) 0 ml DEE BID COUNTS INCLUDE 234 BEDS AT [facility] Last Admin: 01/23/17 08:27 Dose: 2 spray Insulin Glargine 100 (Units/Ml 3 Ml Pen) 0 each SUBCUT BEDTIME COUNTS INCLUDE 234 BEDS AT THE [facility] Last Admin: 01/22/17 22:18 Dose: 45 each Polyethylene Glycol (Miralax) 17 gm PO DAILY PRN PRN Reason: Constipation Potassium Chloride (Pharmacy To Dose - Potassium Replacement) 1 dose .XX ASDIRECTED COUNTS INCLUDE 234 BEDS AT THE [facility] Prednisone (Prednisone) 40 mg PO DAILY COUNTS INCLUDE 234 BEDS AT THE [facility] Stop: 01/26/17 09:01 Prednisone (Prednisone) 20 mg PO DAILY COUNTS INCLUDE 234 BEDS AT [facility] Stop: 01/29/17 09:01 Prednisone (Prednisone) 10 mg PO DAILY COUNTS INCLUDE 234 BEDS AT [facility] Stop: 02/01/17 09:01 Senna/Docusate Sodium (Senna Plus) 1 tab PO BID PRN PRN Reason: Constipation Sertraline HCl (Zoloft) 50 mg PO DAILY COUNTS INCLUDE 234 BEDS AT [facility] Last Admin: 01/23/17 08:26 Dose: 50 mg Simvastatin (Zocor) 5 mg PO BEDTIME COUNTS INCLUDE 234 BEDS AT [facility] Last Admin: 01/22/17 22:14 Dose: 5 mg Sodium Chloride (Saline Flush) 10 ml FLUSH ASDIRECTED PRN PRN Reason: Keep Vein Open Last Admin: 01/16/17 15:23 Dose: 10 ml Temazepam (Restoril) 7.5 mg PO BEDTIME PRN PRN Reason: Sleep Last Admin: 01/18/17 19:49 Dose: 7.5 mg Tiotropium [place] (Spiriva Handihaler) 18 mcg INH DAILY PRN PRN Reason: Dyspnea Discontinued Medications Albuterol (Proventil Neb Soln) 2.5 mg NEB ONETIME ONE Stop: 01/16/17 16:08 Last Admin: 01/16/17 16:19 Dose: 2.5 mg Albuterol/Ipratropium (Duoneb 3.0-0.5 Mg/3 Ml) Confirm Administered Dose 3 ml .ROUTE .STK-MED ONE Stop: 01/16/17 15:29 Last Admin: 01/16/17 15:33 Dose: Not Given Albuterol/Ipratropium (Duoneb 3.0-0.5 Mg/3 Ml) Confirm Administered Dose 3 ml .ROUTE .STK-MED ONE Stop: 01/16/17 15:29 Last Admin: 01/16/17 15:33 Dose: Not Given Albuterol/Ipratropium (Duoneb 3.0-0.5 Mg/3 Ml) 3 ml NEB ONETIME ONE Stop: 01/16/17 15:29 Last Admin: 01/16/17 15:33 Dose: 3 ml Amoxicillin/Clavulanate Potassium (Augmentin 875 Mg/125 Mg) 1 tab PO ONETIME ONE Stop: 01/21/17 16:16 Last Admin: 01/21/17 17:10 Dose: 1 tab Azithromycin 250 mg/ Sodium (Chloride) 250 mls @ 250 mls/hr IV ONETIME ONE Stop: 01/16/17 18:08 Last Admin: 01/16/17 20:27 Dose: Not Given Azithromycin 250 mg/ Sodium (Chloride) 250 mls @ 250 mls/hr IV Q24H COUNTS INCLUDE 234 BEDS AT [facility] Last Admin: 01/16/17 17:53 Dose: Not Given Promethazine HCl 12.5 mg/ (Sodium Chloride) 50.5 mls @ 100 mls/hr IV Q6H PRN PRN Reason: Nausea/Vomiting Magnesium Sulfate 2 gm/ Premix 50 mls @ 25 mls/hr IV ONETIME ONE Stop: 01/16/17 19:23 Last Admin: 01/16/17 18:49 Dose: 25 mls/hr Azithromycin 250 mg/ Sodium (Chloride) 250 mls @ 250 mls/hr IV Q24H COUNTS INCLUDE 234 BEDS AT [facility] Last Admin: 01/21/17 17:14 Dose: 250 mls/hr Azithromycin 250 mg/ Sodium (Chloride) 250 mls @ 250 mls/hr IV ONETIME ONE Stop: 01/16/17 21:14 Last Admin: 01/16/17 20:46 Dose: 250 mls/hr Aminophylline 325 mg/ Sodium (Chloride) 100 mls @ 200 mls/hr IV ONETIME ONE Stop: 01/18/17 14:59 Last Admin: 01/18/17 14:31 Dose: 200 mls/hr Aminophylline 500 mg/ Sodium (Chloride) 500 mls @ 20.833 mls/hr IV ONETIME ONE Stop: 01/19/17 16:59 Last Admin: 01/18/17 17:39 Dose: 20.833 mls/hr Insulin Aspart (Novolog) 0 unit SUBCUT QIDACANDBED [place] PRN Reason: Protocol Last Admin: 01/18/17 22:21 Dose: Not Given Insulin Aspart (Novolog) 0 unit SUBCUT QIDACANDBED PRN; Protocol PRN Reason: Hyperglycemia Last Admin: 01/20/17 13:03 Dose: 3 units Lorazepam (Ativan) 2 mg IVPUSH Q4H PRN PRN Reason: Seizures Methylprednisolone Sodium Succinate (Solu-Medrol) 125 mg IVPUSH ONETIME ONE Stop: 01/16/17 15:29 Last Admin: 01/16/17 15:39 Dose: 125 mg Methylprednisolone Sodium Succinate (Solu-Medrol) 125 mg IVPUSH ONETIME ONE Stop: 01/16/17 21:01 Last Admin: 01/16/17 20:46 Dose: 125 mg Methylprednisolone Sodium Succinate (Solu-Medrol) 125 mg IVPUSH Q8H COUNTS INCLUDE 234 BEDS AT [facility] Last Admin: 01/16/17 17:53 Dose: Not Given Methylprednisolone Sodium Succinate (Solu-Medrol) 125 mg IVPUSH Q8H COUNTS INCLUDE 234 BEDS AT [facility] Methylprednisolone Sodium Succinate (Solu-Medrol) 80 mg IVPUSH Q8H COUNTS INCLUDE 234 BEDS AT [facility] Methylprednisolone Sodium Succinate (Solu-Medrol) 125 mg IVPUSH Q8H COUNTS INCLUDE 234 BEDS AT [facility] Methylprednisolone Sodium Succinate (Solu-Medrol) 80 mg IVPUSH Q8H COUNTS INCLUDE 234 BEDS AT [facility] Methylprednisolone Sodium Succinate (Solu-Medrol) 80 mg IVPUSH Q8H COUNTS INCLUDE 234 BEDS AT [facility] Last Admin: 01/19/17 06:28 Dose: 80 mg Methylprednisolone Sodium Succinate (Solu-Medrol) 40 mg IVPUSH Q12H COUNTS INCLUDE 234 BEDS AT [facility] Stop: 01/20/17 12:00 Last Admin: 01/20/17 06:35 Dose: 40 mg Morphine Sulfate (Morphine) 1 mg IVPUSH Q4H PRN PRN Reason: Other Stop: 01/17/17 17:13 Last Admin: 01/17/17 09:18 Dose: 1 mg Nicotine (Habitrol) 21 mg TRDERM ONETIME ONE Stop: 01/16/17 19:12 Last Admin: 01/16/17 19:53 Dose: 21 mg Insulin Degludec 45 (Units (Tresiba)) 0 each SUBCUT BEDTIME COUNTS INCLUDE 234 BEDS AT [facility] Last Admin: 01/17/17 21:22 Dose: Not Given Prednisone (Prednisone) 0 mg PO .TAPER COUNTS INCLUDE 234 BEDS AT THE [facility] PRN Reason: Taper Stop: 02/02/17 07:59 Prednisone (Prednisone) 60 mg PO DAILY COUNTS INCLUDE 234 BEDS AT [facility] Stop: 01/23/17 09:01 Last Admin: 01/23/17 08:26 Dose: 60 mg Theophylline (Theophylline Anhydrous) 200 mg PO BID COUNTS INCLUDE 234 BEDS AT [facility] Last Admin: 01/19/17 11:39 Dose: Not Given Theophylline (Theophylline Anhydrous) 200 mg PO BID COUNTS INCLUDE 234 BEDS AT [facility] Last Admin: 01/19/17 13:11 Dose: Not Given Theophylline (Theophylline Anhydrous) 100 mg PO BID COUNTS INCLUDE 234 BEDS AT THE [facility] Theophylline (Theophylline Anhydrous) 150 mg PO BID COUNTS INCLUDE 234 BEDS AT THE [facility] Last Admin: 01/22/17 09:23 Dose: 150 mg - Exam Quality Assessment: Reports: Supplemental Oxygen, DVT Prophylaxis General: Reports: Alert, Oriented, Cooperative, No Acute Distress HEENT: Reports: Pupils Equal, EOMI, Mucous Membr. Moist/[place] Neck: Reports: Supple, No JVD Lungs: Reports: Normal Respiratory Effort, Decreased Breath Sounds (throughout) , Wheezing (minimal with expiration- scattered) Cardiovascular: Reports: Regular Rate, Regular Rhythm GI/Abdominal Exam: Normal Bowel Sounds, Soft, Non-Tender (Female) Exam: Deferred Rectal (Female) Exam: Deferred Extremities: Normal Inspection, No Pedal Edema Skin: Reports: Warm, Dry Neurological: Reports: No New Focal Deficit Psy/Mental Status: Reports: Alert, Normal Affect, Normal Mood *Q Meaningful Use (DIS) - VTE *Q VTE Criteria *Q: - Stroke *Q Stroke Criteria *Q: - AMI *Q AMI Criteria *Q:
[2017-01-23 14:12] VITALS: BP 134/49
[2017-01-24] MEDS ORDERED: predniSONE 20 MG Tab PO SCH (09:00)
[2017-01-27] MEDS ORDERED: predniSONE 20 MG Tab PO SCH (09:00)
[2017-01-30] MEDS ORDERED: predniSONE 10 MG Tab PO SCH (09:00)
== END 2017-01-23 15:35 | disposition home or self-care (01) | DRG 191 ==
LOC: JD.ED 15:14 → JD.MS 17:17 → UNDOADMIN 17:17 → JD.MS 17:57
PROVIDERS: ADMIT Internal Medicine; ATTEND Internal Medicine
DX: J44.0 Chronic obstructive pulmonary disease with (acute) lower respiratory infection (principal); R09.02 Hypoxemia; H33.20 Serous retinal detachment, unspecified eye; Z68.41 Body mass index [BMI] 40.0-44.9, adult; E11.9 Type 2 diabetes mellitus without complications; J20.9 Acute bronchitis, unspecified; J44.1 Chronic obstructive pulmonary disease with (acute) exacerbation; R19.7 Diarrhea, unspecified; J01.40 Acute pansinusitis, unspecified; H54.7 Unspecified visual loss; I10 Essential (primary) hypertension; Z87.442 Personal history of urinary calculi; Z87.440 Personal history of urinary (tract) infections; M10.9 Gout, unspecified; M19.90 Unspecified osteoarthritis, unspecified site; E11.65 Type 2 diabetes mellitus with hyperglycemia; Z79.4 Long term (current) use of insulin; Z79.84 Long term (current) use of oral hypoglycemic drugs; F32.9 Major depressive disorder, single episode, unspecified; F41.9 Anxiety disorder, unspecified; E66.9 Obesity, unspecified; F17.210 Nicotine dependence, cigarettes, uncomplicated; Z87.01 Personal history of pneumonia (recurrent); Z88.1 Allergy status to other antibiotic agents; Z88.8 Allergy status to other drugs, medicaments and biological substances; Z91.19 Patient's noncompliance with other medical treatment and regimen; G43.909 Migraine, unspecified, not intractable, without status migrainosus; Z79.82 Long term (current) use of aspirin; Z99.81 Dependence on supplemental oxygen; Z79.899 Other long term (current) drug therapy
CPT/HCPCS: 36415; 71010; 80053; 85025; 86140; 93005; 94640 ×2; 96374; 99285; J2930; J7050; 70486; 70486-26; 71020; 71020-26; 80048; 80198; 82962; 83036; 83735; 94761; 94762; 97110-GO; 97110-GP; 97116-GP; 97162-GP; 97166-GO; 97530-GO; 99223; 99232; 99239; A9270; A9270-GY; J0280; J0456; J1815-GY; J2270; J2920; J3475; J7030; J7040

== ENCOUNTER 2017-06-28 07:47 | Inpatient (IN) | payer MEDICARE, MEDICAID ==
--- NOTE | 2017-06-28 08:16 | EDM.PDOC ---
ED HPI GENERAL MEDICAL PROBLEM - General Chief Complaint: Respiratory Problem Stated Complaint: SOB Time Seen by Provider: 06/28/17 08:05 Source of Information: Reports: Patient History Limitations: Reports: No Limitations - History of Present Illness INITIAL COMMENTS - FREE TEXT/NARRATIVE: 67-year-old female presents to the ED with increased dyspnea over the last week but particularly the last 2 days. Increased cough but not bringing up any sputum. Low-grade fever perhaps 99.0. Has a terrible headache this morning. Was propped up in bed most of the night with sleep intermittently. She doesn't have a documented history of sleep apnea syndrome but certainly has the body habitus for this. She has known COPD and continues to smoke cigarettes. She does use a home nebulizer machine with albuterol with minimal improvement as of late. Lucinda some breakfast this morning. She has no nausea or vomiting but she did have a rather explosive diarrhea stool this morning. Denies any chest pain but feels a lot of pressure across her lower costal margin bilaterally believe from air within the stomach. Some burping and belching. She is a type II diabetic with poorly controlled sugars. Average sugar is around 2 15. Onset: Gradual Onset Date: 06/20/17 Duration: Week(s): Location: Reports: Chest (Over the last week. First breath getting worse.) Quality: Reports: Same as Previous Episode (Similar previous episodes) Severity: Moderate Improves with: Reports: Rest Worsens with: Reports: Movement Context: Denies: Activity, Exercise, Sick Contact, Trauma, Other Associated Symptoms: Reports: Chest Pain, Cough, Shortness of Breath. 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: Breathing Treatments Headache Pain Score (Numeric/FACES): 9 - Related Data Allergies Allergy/AdvReac Type Severity Reaction Status Date / Time insulin detemir Allergy Mild Itching Verified 06/28/17 08:00 [From Levemir] doxycycline Allergy Swelling Verified 06/28/17 08:00 Home Meds: Home Meds Allopurinol [Zyloprim] 300 mg PO DAILY 04/18/15 [History] Aspirin [Sacha Chewable Aspirin] 81 mg PO DAILY 04/18/15 [History] Lisinopril 10 mg PO DAILY 04/18/15 [History] Lovastatin 10 mg PO BEDTIME 04/18/15 [History] metFORMIN [Glucophage] 1,000 mg PO BID 04/18/15 [History] Ipratropium/Albuterol Sulfate [Combivent Respimat Inhal [place]] 1 puff INFILT BID PRN 08/26/15 [History] Sertraline [Zoloft] 1 tab PO DAILY 08/26/15 [History] Insulin Degludec [Tresiba Flextouch U-200] 45 unit SQ BEDTIME 01/16/17 [History] Albuterol/Ipratropium [DuoNeb 3.0-0.5 MG/3 ML] 3 ml NEB Q6H #1 box 01/23/17 [Rx] Famotidine [Pepcid] 20 mg PO BID #60 tablet 01/23/17 [Rx] Tiotropium [Spiriva HandiHaler] 18 mcg INH DAILY #30 cap 01/23/17 [Rx] glipiZIDE [Glipizide ER] 10 mg PO BID #60 01/23/17 [Rx] Meloxicam [Mobic] 15 mg PO DAILY 06/28/17 [History] Past Medical History HEENT History: Reports: Impaired Vision, Retinal Detachment Other HEENT History: states "sometimes" wears eyeglasses. Cardiovascular History: Reports: Hypertension Respiratory History: Reports: Asthma, Bronchitis, Recurrent, COPD, Pneumonia, Recurrent Gastrointestinal History: Reports: None Other Gastrointestinal History: diarrhea past few days Genitourinary History: Reports: Renal Calculus, UTI, Recurrent Other Genitourinary History: states still has kidney stone in one kidney without causing pain or difficulty. 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 GI Surgical History: Reports: Appendectomy, Cholecystectomy Female Surgical History: Reports: Hysterectomy, Lithotripsy/ESWL Musculoskeletal Surgical History: Reports: Arthroscopic Knee Social & Family History - Family History Family Medical History: Noncontributory - Tobacco Use Smoking Status *Q: Former Smoker Years of Tobacco use: 40 Packs/Tins Daily: 1 Used Tobacco, but Quit: Yes Month Tobacco Last Used: 12/2016 Second Hand Smoke Exposure: Yes - Caffeine Use Caffeine Use: Reports: Energy Drinks, Soda - Recreational Drug Use Recreational Drug Use: No - Living Situation & Occupation Living situation: Reports: Single Occupation: Retired ED ROS GENERAL - Review of Systems Review Of Systems: See Below Constitutional: Reports: Fever, Malaise (Perhaps low-grade fever), Weakness, Fatigue. Denies: Chills, Night Sweats, Diaphoresis, Decreased Appetite, Weight Loss, Weight Gain HEENT: Reports: Glasses (For reading). Denies: Hearing Loss, Nosebleed, Nose Pain, Rhinitis, Sinus Problem, Throat Swelling Respiratory: Reports: Shortness of Breath, Wheezing, Cough, Sputum. Denies: Pleuritic Chest Pain, Hemoptysis (Occasional thick sputum), Other Cardiovascular: Reports: Chest Pain (Pressure in the lower chest), Blood Pressure Problem ( feels like she can't get a deep breath.), Dyspnea on Exertion (Chronic lower dependent edema.), Edema. Denies: Claudication, Lightheadedness, Orthopnea, Palpitations ( Chronically) Endocrine: Reports: Fatigue, High Glucose GI/Abdominal: Reports: Abdominal Pain, Diarrhea, Distension (Diarrhea this morning. Very distended with air.), Flatus. Denies: Anorexia, Black Stool ( Pressure in the upper abdomen), Bloody Stool, Decreased Appetite, Difficulty Swallowing, Hematemesis, Hematochezia, Melena, Nausea, Stool Incontinence, Vomiting : Reports: Incontinence (Urge and stress components.) Musculoskeletal: Reports: Back Pain, Joint Pain (Knees hips and neck at times) Skin: Reports: No Symptoms Neurological: Reports: No Symptoms Psychiatric: Reports: No Symptoms Hematologic/Lymphatic: Reports: No Symptoms ED EXAM, GENERAL - Physical Exam Exam: See Below Exam Limited By: No Limitations General Appearance: Alert, Moderate Distress (Respiratory distress 26-30/m with O2 sats of 89% on room air. 93% on 2 L.) Eye Exam: Bilateral Eye: Normal Inspection Ears: Normal TMs Nose: Normal Inspection, Normal Mucosa Throat/Mouth: Normal Inspection, Normal Lips, Normal Teeth, Normal Oropharynx Head: Atraumatic Neck: Normal Inspection, Supple, Non-Tender, Full Range of Motion. No: Lymphadenopathy (L), Lymphadenopathy (R) Respiratory/Chest: Respiratory Distress (Moderate tachypnea 26-30/m), Decreased Breath Sounds (Air entry is decreased to lower 50% of lung gama posteriorly.) , Rales (Few rales in both lower lobes. But worse on the left compared to the right.), Wheezing (Mild face expiratory wheezing mostly anterior upper lungs.) Cardiovascular: Regular Rate, Rhythm, No Gallop, No Murmur, No Rub. No: Normal Peripheral Pulses, No Edema Peripheral Pulses: 1+: Posterior Tibial (L), Posterior Tibial (R), Dorsalis Pedis (L), Dorsalis Pedis (R) GI/Abdominal: Normal Bowel Sounds, Other (Patient is morbidly obese. Abdomen is distended and very tympanitic to percussion throughout the upper abdomen compatible with aerophagia. She's had previous cholecystectomy appendectomy and hysterectomy with retention of the ovaries.). No: Rigid, Rebound, Tender Back Exam: Normal Inspection, Full Range of Motion. No: CVA Tenderness (L), CVA Tenderness (R) Extremities: Pedal Edema, Other (Watling type gait.) Neurological: Alert (2+ pitting edema both lower extremities to mid tib-fib), Oriented, CN II-XII Intact, Normal Cognition. No: Normal Gait Psychiatric: Normal Affect, Normal Mood Skin Exam: Warm, Dry, Intact, Normal Color, No Rash EKG INTERPRETATION EKG Date: 06/28/17 Time: 08:40 Rhythm: NSR Rate (Beats/Min): 95 [place] Ari: Normal P-Wave: Present QRS: Other (Decreased voltage in limb and precordial leads.) ST-T: Normal QT: Normal EKG Interpretation Comments: Borderline ECG. Course - Vital Signs Last Recorded V/S: Last Vital Signs Temp 36.9 C 06/28/17 07:55 Pulse 96 06/28/17 07:55 Resp 26 H 06/28/17 07:55 BP 166/85 H 06/28/17 07:55 Pulse Ox 95 06/28/17 08:40 - Orders/Labs/Meds Orders: Active Orders 24 hr Category Date Time Status EKG Documentation Completion [RC] STAT Care 06/28/17 08:16 Active Oxygen Therapy [RC] ASDIRECTED Care 06/28/17 08:17 Active RT Aerosol Therapy [RC] ASDIRECTED Care 06/28/17 08:17 Active Sodium Chloride 0.9% [Normal Saline] 1,000 ml Med 06/28/17 08:30 Active IV ASDIRECTED Medication Orders Sodium Chloride (Normal Saline) 1,000 mls @ 75 mls/hr IV ASDIRECTED ENID Last Admin: 06/28/17 08:36 Dose: 75 mls/hr Labs: Laboratory Tests 06/28/17 06/28/17 06/28/17 Range/Units 08:18 08:30 08:30 WBC 8.78 (3.98-10.04) K/mm3 RBC 4.17 (3.98-5.22) M/mm3 Hgb 11.3 (11.2-15.7) gm/L Hct 37.3 (34.1-44.9) % MCV 89.4 (79.4-94.8) fl MCH 27.1 (25.6-32.2) pg MCHC 30.3 L (32.2-35.5) g/dl RDW Std Deviation 47.3 H (36.4-46.3) fL Plt Count 201 (182-369) K/mm3 MPV 9.9 (9.4-12.3) fl Neutrophils % (Manual) 74 H (40-60) % Band Neutrophils % 0 (0-10) % Lymphocytes % (Manual) 16 L (20-40) % Atypical Lymphs % 0 % Monocytes % (Manual) 4 (2-10) % Eosinophils % (Manual) 5 (0.7-5.8) % Basophils % (Manual) 1 (0.1-1.2) Platelet Estimate Adequate Hypochromasia Moderate RBC Morph Comment Not Reportable Puncture Site Rt radial ABG pH 7.39 (7.35-7.45) ABG pCO2 44.7 (35.0-45.0) mmHg ABG pO2 69.0 L (80.0-100.0) mmHg ABG HCO3 26.3 H (22.0-26.0) meq/L ABG O2 Saturation 95.2 L (96.0-97.0) % ABG Base Excess 1.5 (-2-2.0) Jerel Test Positive O2 Delivery Device Nasal cannula Oxygen Flow Rate 1.5 FiO2 0.00 L (21.00-100.00) % Sodium 141 (136-145) mEq/L Potassium 4.8 (3.5-5.1) mEq/L Chloride 103 (98-107) mEq/L Carbon Dioxide 30 (21-32) mEq/L Anion Gap 12.8 (5-15) BUN 18 (7-18) mg/dL Creatinine 0.9 (0.55-1.02) mg/dL Est Cr Clr Drug Dosing 52.38 mL/min Estimated GFR (MDRD) > 60 (>60) mL/min BUN/Creatinine Ratio 20.0 H (14-18) Glucose 204 H (80-115) mg/dL Hemoglobin A1c (4.50-6.20) % Calcium 9.4 (8.5-10.1) mg/dL Magnesium 1.6 L (1.8-2.4) mg/dl Total Bilirubin 0.3 (0.2-1.0) mg/dL AST 29 (15-37) U/L ALT 43 (14-59) U/L Alkaline Phosphatase 64 (46-116) U/L CK-MB (CK-2) 0.5 (0-3.6) ng/ml Troponin I < 0.017 (0.00-0.056) ng/mL C-Reactive Protein 1.5 H* (<1.0) mg/dL NT-Pro-B Natriuret Pep (0-125) pg/mL Total Protein 6.9 (6.4-8.2) g/dl Albumin 3.3 L (3.4-5.0) g/dl Globulin 3.6 gm/dL Albumin/Globulin Ratio 0.9 L (1-2) TSH 3rd Generation (0.358-3.74) uIU/mL Urine Color (Yellow) Urine Appearance (Clear) Urine pH (5.0-8.0) Ur Specific [place] (1.005-1.030) Urine Protein (Negative) Urine Glucose (UA) (Negative) Urine Ketones (Negative) Urine Occult Blood (Negative) Urine Nitrite (Negative) Urine Bilirubin (Negative) Urine Urobilinogen (0.2-1.0) Ur Leukocyte Esterase (Negative) 06/28/17 06/28/17 06/28/17 Range/Units 08:30 08:30 08:30 WBC (3.98-10.04) K/mm3 RBC (3.98-5.22) M/mm3 Hgb (11.2-15.7) gm/L Hct (34.1-44.9) % MCV (79.4-94.8) fl MCH (25.6-32.2) pg MCHC (32.2-35.5) g/dl RDW Std Deviation (36.4-46.3) fL Plt Count (182-369) K/mm3 MPV (9.4-12.3) fl Neutrophils % (Manual) (40-60) % Band Neutrophils % (0-10) % Lymphocytes % (Manual) (20-40) % Atypical Lymphs % % Monocytes % (Manual) (2-10) % Eosinophils % (Manual) (0.7-5.8) % Basophils % (Manual) (0.1-1.2) Platelet Estimate Hypochromasia RBC Morph Comment Puncture Site ABG pH (7.35-7.45) ABG pCO2 (35.0-45.0) mmHg ABG pO2 (80.0-100.0) mmHg ABG HCO3 (22.0-26.0) meq/L ABG O2 Saturation (96.0-97.0) % ABG Base Excess (-2-2.0) Jerel Test O2 Delivery Device Oxygen Flow Rate FiO2 (21.00-100.00) % Sodium (136-145) mEq/L Potassium (3.5-5.1) mEq/L Chloride (98-107) mEq/L Carbon Dioxide (21-32) mEq/L Anion Gap (5-15) BUN (7-18) mg/dL Creatinine (0.55-1.02) mg/dL Est Cr Clr Drug Dosing mL/min Estimated GFR (MDRD) (>60) mL/min BUN/Creatinine Ratio (14-18) Glucose (80-115) mg/dL Hemoglobin A1c 8.00 H (4.50-6.20) % Calcium (8.5-10.1) mg/dL Magnesium (1.8-2.4) mg/dl Total Bilirubin (0.2-1.0) mg/dL AST (15-37) U/L ALT (14-59) U/L Alkaline Phosphatase (46-116) U/L CK-MB (CK-2) (0-3.6) ng/ml Troponin I (0.00-0.056) ng/mL C-Reactive Protein (<1.0) mg/dL NT-Pro-B Natriuret Pep 178 H (0-125) pg/mL Total Protein (6.4-8.2) g/dl Albumin (3.4-5.0) g/dl Globulin gm/dL Albumin/Globulin Ratio (1-2) TSH 3rd Generation 1.683 (0.358-3.74) uIU/mL Urine Color (Yellow) Urine Appearance (Clear) Urine pH (5.0-8.0) Ur Specific [place] (1.005-1.030) Urine Protein (Negative) Urine Glucose (UA) (Negative) Urine Ketones (Negative) Urine Occult Blood (Negative) Urine Nitrite (Negative) Urine Bilirubin (Negative) Urine Urobilinogen (0.2-1.0) Ur Leukocyte Esterase (Negative) 06/28/17 Range/Units 09:32 WBC (3.98-10.04) K/mm3 RBC (3.98-5.22) M/mm3 Hgb (11.2-15.7) gm/L Hct (34.1-44.9) % MCV (79.4-94.8) fl MCH (25.6-32.2) pg MCHC (32.2-35.5) g/dl RDW Std Deviation (36.4-46.3) fL Plt Count (182-369) K/mm3 MPV (9.4-12.3) fl Neutrophils % (Manual) (40-60) % Band Neutrophils % (0-10) % Lymphocytes % (Manual) (20-40) % Atypical Lymphs % % Monocytes % (Manual) (2-10) % Eosinophils % (Manual) (0.7-5.8) % Basophils % (Manual) (0.1-1.2) Platelet Estimate Hypochromasia RBC Morph Comment Puncture Site ABG pH (7.35-7.45) ABG pCO2 (35.0-45.0) mmHg ABG pO2 (80.0-100.0) mmHg ABG HCO3 (22.0-26.0) meq/L ABG O2 Saturation (96.0-97.0) % ABG Base Excess (-2-2.0) Jerel Test O2 Delivery Device Oxygen Flow Rate FiO2 (21.00-100.00) % Sodium (136-145) mEq/L Potassium (3.5-5.1) mEq/L Chloride (98-107) mEq/L Carbon Dioxide (21-32) mEq/L Anion Gap (5-15) BUN (7-18) mg/dL Creatinine (0.55-1.02) mg/dL Est Cr Clr Drug Dosing mL/min Estimated GFR (MDRD) (>60) mL/min BUN/Creatinine Ratio (14-18) Glucose (80-115) mg/dL Hemoglobin A1c (4.50-6.20) % Calcium (8.5-10.1) mg/dL Magnesium (1.8-2.4) mg/dl Total Bilirubin (0.2-1.0) mg/dL AST (15-37) U/L ALT (14-59) U/L Alkaline Phosphatase (46-116) U/L CK-MB (CK-2) (0-3.6) ng/ml Troponin I (0.00-0.056) ng/mL C-Reactive Protein (<1.0) mg/dL NT-Pro-B Natriuret Pep (0-125) pg/mL Total Protein (6.4-8.2) g/dl Albumin (3.4-5.0) g/dl Globulin gm/dL Albumin/Globulin Ratio (1-2) TSH 3rd Generation (0.358-3.74) uIU/mL Urine Color Yellow (Yellow) Urine Appearance Clear (Clear) Urine pH 6.0 (5.0-8.0) Ur Specific [place] > or = 1.030 (1.005-1.030) Urine Protein Negative (Negative) Urine Glucose (UA) Negative (Negative) Urine Ketones Negative (Negative) Urine Occult Blood Negative (Negative) Urine Nitrite Negative (Negative) Urine Bilirubin Negative (Negative) Urine Urobilinogen 0.2 (0.2-1.0) Ur Leukocyte Esterase Negative (Negative) Meds: Medications Generic Name Dose Route Start Last Admin Trade Name Freq PRN Reason Stop Dose Admin Sodium Chloride 1,000 mls @ 75 mls/hr 06/28/17 08:30 06/28/17 08:36 Normal Saline IV 75 mls/hr ASDIRECTED ENID Administration Discontinued Medications Generic Name Dose Route Start Last Admin Trade Name Angélica PRN Reason Stop Dose Admin Albuterol/Ipratropium 3 ml 06/28/17 08:17 06/28/17 08:26 Duoneb 3.0-0.5 Mg/3 Ml NEB 06/28/17 08:18 3 ml ONETIME ONE Administration Hydromorphone HCl 0.5 mg 06/28/17 08:20 06/28/17 08:38 Dilaudid IVPUSH 06/28/17 08:21 0.5 mg ONETIME ONE Administration Methylprednisolone Sodium Succinate 125 mg 06/28/17 09:28 06/28/17 09:37 Solu-Medrol IVPUSH 06/28/17 09:29 125 mg ONETIME ONE Administration Ondansetron HCl 4 mg 06/28/17 08:20 06/28/17 08:36 Zofran IVPUSH 06/28/17 08:21 4 mg ONETIME ONE Administration - Radiology Interpretation Free Text/Narrative:: 67-year-old female presents to the ED with increased dyspnea over the last week. Cough is becoming slightly more productive but she has trouble expectorating any sputum. She is feeling very short of breath this morning and distended in the abdomen with increased pressure across lower chest. This is from abdominal distention and aerophagia. O2 sats only 89% upon arrival. She was placed on 2 L/m to achieve O2 sats of 93%. She has a very bad headache which I suspect is due to hypercarbia. Plan IV normal saline 75 mils per hour. Will give Dilaudid 0.5 mg IV and Reglan 4 mg IV for headache relief. One view chest x-ray ECG and labs to be performed. DuoNeb will be given when able. ABGs to be done as well. Clinically she has end-stage COPD. - Re-Assessments/Exams Free Text/Narrative Re-Assessment/Exam: 06/28/17 08:45 ABGs reveal a normal pH of 7.39. PCO2 is 44.7 PO2 was 69. O2 sats were 95.2% on 2 L per nasal cannula. ECG shows sinus rhythm at 95/m with decreased decreased voltage throughout the limb and precordial leads but no signs of ischemia. Chest x-ray reveals likely left ventricular hypertrophy. There is rotation of the chest to the left. This makes the right hilum more prominent. However appear to be some congestion in the perihilar space right side. Significant brought peribronchial cuffing and probably mild vascular congestion appreciated. 06/28/17 09:26 Total white count is 8.7 a differential pending. Hemoglobin slightly low 11.3 with hematocrit of 37.3. MCV is normal at 89.4. White count normal 201,000. Sodium 141 potassium 4.8. Toward 103 bicarbonate is 30. Anion gap is 12.8. UA is 18. Glucose is 204. Hemoglobin A1c is 8.0. Magnesium slightly low at 1.6 Cardiac markers reveal a CK-MB fraction 0.5 troponin I is less than 0.017. Liver function normal. C-reactive protein mildly elevated at 1.5. BNP is 178. TSH 1.68.. Her findings are therefore suggestive of acute exacerbation of COPD. No bacterial infection is evident. She may benefit from a short course of steroids although this will aggravate her blood sugars. Will be given Solumedrol 125 mg IV. 06/28/17 11:15: Spoke with Dr. Guerra car salesperson hospitalist in regards to possible admission. She will see the patient in the ED at this time. Tentatively patient will be admitted to the hospital for observation status. Hopefully she will open up with steroids but her blood sugars will have to be kept an eye on. Departure - Departure Time of Disposition: 12:09 Disposition: Home, Self-Care 01 Condition: Fair Clinical Impression: Acute exacerbation of chronic obstructive pulmonary disease (COPD), Morbid obesity with BMI of 40.0-44.9, adult Type 2 diabetes mellitus Qualifiers: Diabetes mellitus complication status: with other specified complication Diabetes mellitus tank terminal gauger insulin use: with tank terminal gauger use Qualified Code(s): E11.69 - Type 2 diabetes mellitus with other specified complication - Discharge Information - My Orders Last 24 Hours: My Active Orders 06/28/17 08:16 EKG Documentation Completion [RC] STAT 06/28/17 08:17 Oxygen Therapy [RC] ASDIRECTED RT Aerosol Therapy [RC] ASDIRECTED 06/28/17 08:30 Sodium Chloride 0.9% [Normal Saline] 1,000 ml IV ASDIRECTED - Assessment/Plan Last 24 Hours: My Active Orders 06/28/17 08:16 EKG Documentation Completion [RC] STAT 06/28/17 08:17 Oxygen Therapy [RC] ASDIRECTED RT Aerosol Therapy [RC] ASDIRECTED 06/28/17 08:30 Sodium Chloride 0.9% [Normal Saline] 1,000 ml IV ASDIRECTED
[2017-06-28] MEDS ORDERED: Albuterol/Ipratropium 3.0-0.5 MG/3 ML Neb Soln NEB ONE (08:17)
[2017-06-28] MEDS ORDERED: HYDROmorphone 0.5 MG/0.5 ML SYRINGE IVPUSH ONE (08:20)
[2017-06-28] MEDS ORDERED: Ondansetron 4 MG/2 ML SDV IVPUSH ONE (08:20)
[2017-06-28] MEDS ORDERED: Sodium Chloride 0.9% 1,000 ML IV SCH (08:30)
[2017-06-28] MEDS ORDERED: methylPREDNISolone Sodium Succinate 125 MG/2 ML SDV IVPUSH ONE (09:28)
--- NOTE | 2017-06-28 10:41 | CR ---
Chest: Portable view of the chest was obtained. Comparison: Prior chest x-ray of 01/19/17. Heart size and mediastinum are within normal limits for portable technique. Atherosclerotic calcification is noted within the aorta. Minimal scarring is noted within the left midlung. Lungs otherwise are clear. Bony structures are grossly intact. Impression: 1. Nothing acute is appreciated on portable chest x-ray. Diagnostic code #2
--- NOTE | 2017-06-28 13:15 | PCM.HP ---
H&P History of Present Illness - General Date of Service: 06/28/17 Admit Problem/Dx: Admission Diagnosis/Problem Admission Diagnosis/Problem COPD, Severe chronic obstructive pulmonary disease Source of Information: Patient, Provider History Limitations: Reports: No Limitations - History of Present Illness Initial Comments - Free Text/Narative: 67 year old female with sudden onset of SOB, long standing history of COPD. She has had no known sick contacts. The patient activetly smokes tobacco. She admits to SOB/RODRIGUEZ, fever without chills. Has also had a cough without change in sputum; use of her home nebulizer has provided minimal relief. She has required O2 via NC to maintain her O2 saturation >90%. Onset of Symptoms: Reports: Sudden Symptom Onset Date: 06/27/17 Duration of Symptoms: Reports: Hour(s):, Getting Worse Location: Reports: Chest, Generalized Severity: Moderate Improves with: Reports: Medication Worsens with: Reports: None Associated Symptoms: Reports: Cough, Malaise, Shortness of Breath, Weakness Headache Pain Score (Numeric/FACES): 9 - Related Data Allergies/Adverse Reactions: Allergies Allergy/AdvReac Type Severity Reaction Status Date / Time insulin detemir Allergy Mild Itching Verified 06/28/17 12:26 [From Levemir] doxycycline Allergy Swelling Verified 06/28/17 12:26 Home Medications: Home Meds Allopurinol [Zyloprim] 300 mg PO DAILY 04/18/15 [History] Aspirin [Sacha Chewable Aspirin] 81 mg PO DAILY 04/18/15 [History] Lisinopril 10 mg PO DAILY 04/18/15 [History] Lovastatin 10 mg PO BEDTIME 04/18/15 [History] metFORMIN [Glucophage] 1,000 mg PO BID 04/18/15 [History] Ipratropium/Albuterol Sulfate [Combivent Respimat Inhal [place]] 1 puff INH BID PRN 08/26/15 [History] Sertraline [Zoloft] 50 tab PO DAILY 08/26/15 [History] Insulin Degludec [Tresiba Flextouch U-200] 45 unit SQ BEDTIME 01/16/17 [History] glipiZIDE [Glipizide ER] 10 mg PO BID #60 01/23/17 [Rx] Albuterol/Ipratropium [DuoNeb 3.0-0.5 MG/3 ML] 3 ml NEB Q6H PRN 06/28/17 [ History] Meloxicam [Mobic] 15 mg PO DAILY 06/28/17 [History] Past Medical History HEENT History: Reports: Impaired Vision, Retinal Detachment 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: Musculoskeletal History: Reports: Back Pain, Chronic, Gout, Other (See Below) Other Musculoskeletal History: Right knee pain Neurological History: Reports: Migraines, Neuropathy, Diabetic Psychiatric History: Reports: Anxiety, Depression Endocrine/Metabolic History: Reports: Diabetes, Type II Hematologic History: Reports: None Immunologic History: Reports: None Oncologic (Cancer) History: Reports: None Dermatologic History: Reports: None - Infectious Disease History Infectious Disease History: Reports: Measles, Mumps - Past Surgical History HEENT Surgical History: Reports: Eye Surgery, Other (See Below) Other HEENT Surgeries/Procedures: retinal detachment surgery x2. Cardiovascular Surgical History: Reports: None Respiratory Surgical History: Reports: None GI Surgical History: Reports: Appendectomy, Cholecystectomy Female Surgical History: Reports: Hysterectomy, Lithotripsy/ESWL Endocrine Surgical History: Reports: None Neurological Surgical History: Reports: None Musculoskeletal Surgical History: Reports: Arthroscopic Knee Oncologic Surgical History: Reports: None Dermatological Surgical History: Reports: None Social & Family History - Family History Family Medical History: Noncontributory - Tobacco Use Smoking Status *Q: Former Smoker Years of Tobacco use: 40 Packs/Tins Daily: 1 Used Tobacco, but Quit: Yes Month Tobacco Last Used: December 2016 Second Hand Smoke Exposure: Yes - Caffeine Use Caffeine Use: Reports: Soda - Recreational Drug Use Recreational Drug Use: No - Living Situation & Occupation Living situation: Reports: Single Occupation: Retired H&P Review of Systems - Review of Systems: Review Of Systems: See Below General: Reports: Fever, Malaise, Weakness, Fatigue HEENT: Reports: No Symptoms Pulmonary: Reports: Shortness of Breath, Wheezing, Cough Cardiovascular: Reports: Chest Pain, Dyspnea on Exertion Gastrointestinal: Reports: Abdominal Pain, Diarrhea, Distension, Flatus Genitourinary: Reports: Incontinence Musculoskeletal: Reports: Back Pain Skin: Reports: No Symptoms Psychiatric: Reports: No Symptoms Neurological: Reports: No Symptoms Hematologic/Lymphatic: Reports: No Symptoms Immunologic: Reports: No Symptoms Exam - Exam Exam: See Below - Vital Signs Vital Signs: Last Vital Signs Temp 36.7 C 06/28/17 12:23 Pulse 86 06/28/17 12:25 Resp 22 H 06/28/17 12:23 BP 158/67 H 06/28/17 12:25 Pulse Ox 92 L 06/28/17 12:25 Weight: 116.845 kg - Exam Quality Assessment: Supplemental Oxygen, DVT Prophylaxis General: Alert, Oriented, Cooperative HEENT: Conjunctiva Clear, Nares Patent, Normal Nasal Septum, Pupils Equal, Pupils Reactive, PERRLA Neck: Trachea Midline Lungs: Normal Respiratory Effort, Decreased Breath Sounds, Rhonchi, Wheezing Cardiovascular: Regular Rate, Regular Rhythm GI/Abdominal Exam: Normal Bowel Sounds, No Organomegaly, No Distention (Female) Exam: Deferred Rectal (Female) Exam: Deferred Back Exam: Normal Inspection Extremities: Normal Inspection, Pedal Edema Skin: Warm Neurological: Cranial Nerves Intact Neuro Extensive - Mental Status: Alert, Oriented x3, Normal Mood/Affect, Normal Cognition, Memory Intact Neuro Extensive - Motor, Sensory, Reflexes: CN II-XII Intact Psychiatric: Alert, Normal Affect, Normal Mood - Patient Data Result Diagrams: 06/28/17 08:30 06/28/17 08:30 *Q Meaningful Use (ADM) - VTE *Q VTE Criteria *Q: - Stroke *Q Stroke Criteria *Q: - AMI *Q AMI Criteria *Q: - Problem List (1) Acute exacerbation of chronic obstructive pulmonary disease (COPD) SNOMED Code(s): 329097860 ICD Code: J44.1 - CHRONIC OBSTRUCTIVE PULMONARY DISEASE W (ACUTE) EXACERBATION Status: Acute Current Visit: Yes (2) Morbid obesity with BMI of 40.0-44.9, adult SNOMED Code(s): 967069305 ICD Code: E66.01 - MORBID (SEVERE) OBESITY DUE TO EXCESS CALORIES; Z68.41 - BODY MASS INDEX (BMI) 40.0-44.9, ADULT Status: Acute Current Visit: Yes (3) Type 2 diabetes mellitus SNOMED Code(s): 07273376 ICD Code: E11.9 - TYPE 2 DIABETES MELLITUS WITHOUT COMPLICATIONS Status: Acute Current Visit: Yes Qualifiers: Diabetes mellitus complication status: with other specified complication 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: with intermediate use Qualified Code(s) : E11.69 - Type 2 diabetes mellitus with other specified complication; Z79.4 - longterm (current) use of insulin; Z79.4 - youth counselor (current) use of insulin; Z79.4 - youth counselor (current) use of insulin; Z79.4 - youth counselor (current) use of insulin (4) Acute bronchitis SNOMED Code(s): 28033821 ICD Code: J20.9 - ACUTE BRONCHITIS, UNSPECIFIED Status: Acute Priority: High Current Visit: No Qualifiers: Bronchitis organism: unspecified organism Qualified Code(s): J20.9 - Acute bronchitis, unspecified (5) COPD exacerbation SNOMED Code(s): 403502089355558 ICD Code: J44.1 - CHRONIC OBSTRUCTIVE PULMONARY DISEASE W (ACUTE) EXACERBATION Status: Acute Priority: High Current Visit: No (6) Hypoxia SNOMED Code(s): 981993974 ICD Code: R09.02 - HYPOXEMIA Status: Acute Priority: High Current Visit : No Problem List Initiated/Reviewed/Updated: Yes Orders Last 24hrs: Active Orders 24 hr Category Date Time Status FLU Vacc [id number](65YR UP)/PF [Fluzone High-Dose 2017- Med 06/28/17 14:00 Once 18] 180 mcg IM .ONCE ONE Medication Orders Sodium Chloride (Normal Saline) 1,000 mls @ 75 mls/hr IV ASDIRECTED [facility] Last Admin: 06/28/17 08:36 Dose: 75 mls/hr Influenza Virus Vaccine (Fluzone High-Dose ) 180 mcg IM .ONCE ONE Stop: 06/28/17 14:01 Assessment/Plan Comment:: Impression: COPD exacerbation with hypoxia; actively smokes tobacco Acute bronchitis cf PNA Query sick contact Morbid obesity, BMI 44.2 kg Query sleep apnea Chronic DM type II with impaired vision Hx of retinal detachment Hx of anxiety/depression HTN HLD with statin Plan: 1999 ADA; dietary consult re: diabetic choices; wgt loss Tobacco cessation with nicotine replacement Resp infection work up IV steroids IV Zithromax Pulmonary toilet NEBS scheduled/prn Home meds Daily labs CM/PT/OT consults DVT/GI prophylaxis
[2017-06-28] MEDS ORDERED: FLU Vacc TS 2017-18 (65yr UP)/PF 180 MCG/0.5 ML Syringe IM ONE (14:00)
[2017-06-28] MEDS: Azithromycin 500 MG in Sodium Chloride 0.9% 250 ML IV SCH (14:37)
[2017-06-28] MEDS: methylPREDNISolone Sodium Succinate 125 MG/2 ML SDV IVPUSH SCH ×2 (14:37→18:31)
[2017-06-28] MEDS: Albuterol/Ipratropium 3.0-0.5 MG/3 ML Neb Soln NEB SCH ×3 (14:52→20:49)
[2017-06-28] MEDS ORDERED: Albuterol 0.083% 2.5 MG/3 ML Neb Soln NEB PRN (15:07)
[2017-06-28] MEDS: Acetaminophen Soln 650 MG/20.3 ML UD Cup PO PRN (15:31)
[2017-06-28] MEDS: glipiZIDE 5 MG Tab.ER PO SCH (15:32)
[2017-06-28] MEDS: metFORMIN 500 MG Tab PO SCH (17:53)
[2017-06-28] MEDS ORDERED: 50% Dextrose in Water 50 ML Syringe IVPUSH PRN (17:58)
[2017-06-28] MEDS: Simvastatin 10 MG Tab PO SCH (22:02)
[2017-06-28] MEDS: Temazepam 7.5 MG Cap PO PRN (22:02)
[2017-06-28] MEDS: guaiFENesin 600 MG Tab.ER PO SCH (22:02)
[2017-06-28] MEDS: Famotidine 20 MG Tab PO SCH (22:02)
[2017-06-28] MEDS: Insulin Aspart 100 Units/ML 3 ML Pen SUBCUT SCH (22:03)
[2017-06-29] MEDS: methylPREDNISolone Sodium Succinate 125 MG/2 ML SDV IVPUSH SCH ×4 (02:23→15:31)
[2017-06-29] MEDS: Acetaminophen Soln 650 MG/20.3 ML UD Cup PO PRN ×2 (02:29→13:40)
[2017-06-29] MEDS: glipiZIDE 5 MG Tab.ER PO SCH ×2 (06:02→17:02)
[2017-06-29] MEDS: Insulin Aspart 100 Units/ML 3 ML Pen SUBCUT SCH ×4 (08:07→21:40)
[2017-06-29] MEDS: metFORMIN 500 MG Tab PO SCH ×2 (08:08→17:02)
[2017-06-29] MEDS: Allopurinol 300 MG Tab PO SCH (08:09)
[2017-06-29] MEDS: Aspirin 81 MG Tab.Chew PO SCH (08:09)
[2017-06-29] MEDS: guaiFENesin 600 MG Tab.ER PO SCH ×2 (08:09→21:28)
[2017-06-29] MEDS: Enoxaparin 40 MG/0.4 ML Syringe SUBCUT SCH (08:09)
[2017-06-29] MEDS: Lisinopril 10 MG Tab PO SCH (08:09)
[2017-06-29] MEDS: Sertraline 50 MG Tab PO SCH (08:09)
[2017-06-29] MEDS ORDERED: Nicotine 21 MG/24 Hr Patch TRDERM SCH (09:00)
[2017-06-29] MEDS: Albuterol/Ipratropium 3.0-0.5 MG/3 ML Neb Soln NEB SCH ×4 (09:20→20:34)
[2017-06-29] MEDS ORDERED: hydrALAZINE 20 MG/ML SDV IVPUSH PRN (13:32)
--- NOTE | 2017-06-29 13:36 | PCM.PN ---
- General Info Date of Service: 06/29/17 Functional Status: Reports: Pain Controlled, Tolerating Diet, Ambulating, Urinating - Review of Systems General: Reports: Weakness HEENT: Reports: Headaches Pulmonary: Reports: Shortness of Breath Cardiovascular: Reports: No Symptoms Gastrointestinal: Reports: No Symptoms Genitourinary: Reports: No Symptoms Musculoskeletal: Reports: No Symptoms Skin: Reports: No Symptoms Neurological: Reports: No Symptoms Psychiatric: Reports: No Symptoms - Patient Data Vitals - Most Recent: Last Vital Signs Temp 36.4 C 06/29/17 12:11 Pulse 78 06/29/17 12:11 Resp 20 06/29/17 12:11 BP 144/72 H 06/29/17 12:11 Pulse Ox 92 L 06/29/17 12:11 Weight - Most Recent: 117.662 kg I&O - Last 24 Hours: Intake & Output 06/28/17 06/29/17 06/29/17 22:59 06:59 14:59 Intake Total 1763 1050 160 Output Total 400 900 Balance 1363 150 160 Lab Results Last 24 Hours: Laboratory Results - last 24 hr 06/28/17 06/29/17 06/29/17 Range/Units 22:01 06:00 06:16 WBC (3.98-10.04) K/mm3 RBC (3.98-5.22) M/mm3 Hgb (11.2-15.7) gm/L Hct (34.1-44.9) % MCV (79.4-94.8) fl MCH (25.6-32.2) pg MCHC (32.2-35.5) g/dl RDW Std Deviation (36.4-46.3) fL Plt Count (182-369) K/mm3 MPV (9.4-12.3) fl Neut % (Auto) (34.0-71.1) % Lymph % (Auto) (19.3-51.7) % [place] % (Auto) (4.7-12.5) % Eos % (Auto) (0.7-5.8) Baso % (Auto) (0.1-1.2) % Neut # (Auto) (1.56-6.13) K/mm3 Lymph # (Auto) (1.18-3.74) K/mm3 [place] # (Auto) (0.24-0.36) K/mm3 Eos # (Auto) (0.04-0.36) K/mm3 Baso # (Auto) (0.01-0.08) K/mm3 Manual Slide Review Sodium 136 (136-145) mEq/L Potassium 5.3 H (3.5-5.1) mEq/L Chloride 101 (98-107) mEq/L Carbon Dioxide 25 (21-32) mEq/L Anion Gap 15.3 H (5-15) BUN 24 H (7-18) mg/dL Creatinine 1.1 H (0.55-1.02) mg/dL Est Cr Clr Drug Dosing 42.85 mL/min Estimated GFR (MDRD) 50 (>60) mL/min BUN/Creatinine Ratio 21.8 H (14-18) Glucose 340 H (80-115) mg/dL POC Glucose 357 H 310 H (80-115) mg/dL Lactic Acid (0.4-2.0) mmol/L Calcium 8.9 (8.5-10.1) mg/dL C-Reactive Protein 1.1 H* (<1.0) mg/dL Triglycerides 138 (<150) mg/dL Cholesterol 162 (<200) mg/dL LDL Cholesterol Direct 89 (<100) mg/dL HDL Cholesterol 58.0 (40-59) mg/dL Mycoplasma pneumon IgM Negative (NEGATIVE) 06/29/17 06/29/17 06/29/17 Range/Units 06:16 06:16 10:32 WBC 11.76 H (3.98-10.04) K/mm3 RBC 4.07 (3.98-5.22) M/mm3 Hgb 11.0 L (11.2-15.7) gm/L Hct 36.5 (34.1-44.9) % MCV 89.7 (79.4-94.8) fl MCH 27.0 (25.6-32.2) pg MCHC 30.1 L (32.2-35.5) g/dl RDW Std Deviation 46.5 H (36.4-46.3) fL Plt Count 189 (182-369) K/mm3 MPV 10.1 (9.4-12.3) fl Neut % (Auto) 90.8 H (34.0-71.1) % Lymph % (Auto) 7.4 L (19.3-51.7) % [place] % (Auto) 1.4 L (4.7-12.5) % Eos % (Auto) 0.1 L (0.7-5.8) Baso % (Auto) 0.1 (0.1-1.2) % Neut # (Auto) 10.69 H (1.56-6.13) K/mm3 Lymph # (Auto) 0.87 L (1.18-3.74) K/mm3 [place] # (Auto) 0.16 L (0.24-0.36) K/mm3 Eos # (Auto) 0.01 L (0.04-0.36) K/mm3 Baso # (Auto) 0.01 (0.01-0.08) K/mm3 Manual Slide Review Normal smear Sodium (136-145) mEq/L Potassium (3.5-5.1) mEq/L Chloride (98-107) mEq/L Carbon Dioxide (21-32) mEq/L Anion Gap (5-15) BUN (7-18) mg/dL Creatinine (0.55-1.02) mg/dL Est Cr Clr Drug Dosing mL/min Estimated GFR (MDRD) (>60) mL/min BUN/Creatinine Ratio (14-18) Glucose (80-115) mg/dL POC Glucose 316 H (80-115) mg/dL Lactic Acid 4.0 H (0.4-2.0) mmol/L Calcium (8.5-10.1) mg/dL C-Reactive Protein (<1.0) mg/dL Triglycerides (<150) mg/dL Cholesterol (<200) mg/dL LDL Cholesterol Direct (<100) mg/dL HDL Cholesterol (40-59) mg/dL Mycoplasma pneumon IgM (NEGATIVE) Med Orders - Current: Current Medications Acetaminophen (Tylenol) 650 mg PO Q6H PRN PRN Reason: Pain/Fever Last Admin: 06/29/17 02:29 Dose: 650 mg Albuterol (Proventil Neb Soln) 2.5 mg NEB Q4H PRN PRN Reason: Shortness of Breath Albuterol/Ipratropium (Duoneb 3.0-0.5 Mg/3 Ml) 3 ml NEB QID [facility] Last Admin: 06/29/17 09:20 Dose: 3 ml Allopurinol (Zyloprim) 300 mg PO DAILY [facility] Last Admin: 06/29/17 08:09 Dose: 300 mg Aspirin (Aspirin) 81 mg PO DAILY [facility] Last Admin: 06/29/17 08:09 Dose: 81 mg Dextrose/Water (Dextrose 50% In Water) 50 ml IVPUSH ASDIRECTED PRN PRN Reason: Hypoglycemia Enoxaparin Sodium (Lovenox) 40 mg SUBCUT DAILY [facility] Last Admin: 06/29/17 08:09 Dose: 40 mg Famotidine (Pepcid) 20 mg PO BEDTIME [facility] Last Admin: 06/28/17 22:02 Dose: 20 mg Glipizide (Glucotrol Xl) 10 mg PO BIDAC [facility] Last Admin: 06/29/17 06:02 Dose: 10 mg Guaifenesin (Mucinex) 600 mg PO BID [facility] Last Admin: 06/29/17 08:09 Dose: 600 mg Hydralazine HCl (Apresoline) 20 mg IVPUSH Q8H PRN PRN Reason: Hypertension Azithromycin 500 mg/ Sodium (Chloride) 250 mls @ 250 mls/hr IV Q24H [facility] Last Admin: 06/28/17 14:37 Dose: 250 mls/hr Sodium Chloride (Sodium Chloride 0.45%) 1,000 mls @ 100 mls/hr IV ASDIRECTED [facility] Insulin Aspart (Novolog) 0 unit SUBCUT QIDACANDBED [facility] PRN Reason: Protocol Last Admin: 06/29/17 11:49 Dose: 4 units Lisinopril (Prinivil) 10 mg PO DAILY [facility] Last Admin: 06/29/17 08:09 Dose: 10 mg Metformin HCl (Glucophage) 1,000 mg PO BIDMEALS [facility] Last Admin: 06/29/17 08:08 Dose: 1,000 mg Methylprednisolone Sodium Succinate (Solu-Medrol) 125 mg IVPUSH Q8H [facility] Sertraline HCl (Zoloft) 50 mg PO DAILY [facility] Last Admin: 06/29/17 08:09 Dose: 50 mg Simvastatin (Zocor) 5 mg PO BEDTIME [facility] Last Admin: 06/28/17 22:02 Dose: 5 mg Temazepam (Restoril) 7.5 mg PO BEDTIME PRN PRN Reason: Insomnia Last Admin: 06/28/17 22:02 Dose: 7.5 mg Discontinued Medications Albuterol/Ipratropium (Duoneb 3.0-0.5 Mg/3 Ml) 3 ml NEB ONETIME ONE Stop: 06/28/17 08:18 Last Admin: 06/28/17 08:26 Dose: 3 ml Hydromorphone HCl (Dilaudid) 0.5 mg IVPUSH ONETIME ONE Stop: 06/28/17 08:21 Last Admin: 06/28/17 08:38 Dose: 0.5 mg Sodium Chloride (Normal Saline) 1,000 mls @ 75 mls/hr IV ASDIRECTED [facility] Last Admin: 06/28/17 08:36 Dose: 75 mls/hr Influenza Virus Vaccine (Pharmacy To Dose - Influenza Vaccine) 1 each IM ONETIME ONE Stop: 06/28/17 12:36 Last Admin: 06/29/17 13:20 Dose: Not Given Influenza Virus Vaccine (Fluzone High-Dose ) 180 mcg IM .ONCE ONE Stop: 06/28/17 14:01 Methylprednisolone Sodium Succinate (Solu-Medrol) 125 mg IVPUSH ONETIME ONE Stop: 06/28/17 09:29 Last Admin: 06/28/17 09:37 Dose: 125 mg Methylprednisolone Sodium Succinate (Solu-Medrol) 125 mg IVPUSH Q6H [facility] Last Admin: 06/29/17 08:10 Dose: 125 mg Miscellaneous Information (Remove Patch) 0 ea TRDERM DAILY [facility] Nicotine (Habitrol) 21 mg TRDERM DAILY [facility] Last Admin: 06/29/17 08:10 Dose: Not Given Ondansetron HCl (Zofran) 4 mg IVPUSH ONETIME ONE Stop: 06/28/17 08:21 Last Admin: 06/28/17 08:36 Dose: 4 mg - Exam Quality Assessment: DVT Prophylaxis General: Alert, Oriented, Cooperative, No Acute Distress HEENT: Pupils Equal, Pupils Reactive, EOMI Neck: Trachea Midline, No JVD Lungs: Normal Respiratory Effort, Decreased Breath Sounds Cardiovascular: Regular Rate, Regular Rhythm GI/Abdominal Exam: Normal Bowel Sounds, Soft, Non-Tender, No Organomegaly, No Distention (Female) Exam: Deferred Back Exam: Normal Inspection Extremities: Normal Inspection Skin: Warm Neurological: No New Focal Deficit, Normal Gait, Normal Speech Psy/Mental Status: Alert, Normal Affect, Normal Mood - Problem List & Annotations (1) Acute exacerbation of chronic obstructive pulmonary disease (COPD) SNOMED Code(s): 145041304 Code(s): J44.1 - CHRONIC OBSTRUCTIVE PULMONARY DISEASE W (ACUTE) EXACERBATION Status: Acute Current Visit: Yes (2) Morbid obesity with BMI of 40.0-44.9, adult SNOMED Code(s): 439751929 Code(s): E66.01 - MORBID (SEVERE) OBESITY DUE TO EXCESS CALORIES; Z68.41 - BODY MASS INDEX (BMI) 40.0-44.9, ADULT Status: Acute Current Visit: Yes (3) Type 2 diabetes mellitus SNOMED Code(s): 73867550 Code(s): E11.9 - TYPE 2 DIABETES MELLITUS WITHOUT COMPLICATIONS Status: Acute Current Visit: Yes Qualifiers: Diabetes mellitus complication status: with other specified complication 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: with petroleum terminal plant operator use Qualified Code(s) : E11.69 - Type 2 diabetes mellitus with other specified complication; Z79.4 - terminal system operator (current) use of insulin; Z79.4 - skilled nursing (current) use of insulin; Z79.4 - skilled nursing (current) use of insulin; Z79.4 - terminal system operator (current) use of insulin (4) Acute bronchitis SNOMED Code(s): 64618978 Code(s): J20.9 - ACUTE BRONCHITIS, UNSPECIFIED Status: Acute Priority: High Current Visit: No Qualifiers: Bronchitis organism: unspecified organism Qualified Code(s): J20.9 - Acute bronchitis, unspecified (5) COPD exacerbation SNOMED Code(s): 770712111271937 Code(s): J44.1 - CHRONIC OBSTRUCTIVE PULMONARY DISEASE W (ACUTE) EXACERBATION Status: Acute Priority: High Current Visit: No (6) Hypoxia SNOMED Code(s): 157896276 Code(s): R09.02 - HYPOXEMIA Status: Acute Priority: High Current Visit : No - Problem List Review Problem List Initiated/Reviewed/Updated: Yes - My Orders Last 24 Hours: My Active Orders 06/28/17 13:53 Vital Signs [RC] Q4HR 06/28/17 14:00 Albuterol/Ipratropium [DuoNeb 3.0-0.5 MG/3 ML] 3 ml NEB QID 06/28/17 14:30 Azithromycin [Zithromax] 500 mg Sodium Chloride 0.9% [Normal Saline] 250 ml IV Q24H 06/28/17 14:49 Consult to Dietary [Consult to Public Health Sanitarian Technician] [CONS] Routine 06/28/17 14:52 Consult to Occupational Therapy [OT Evaluation and Treatment] [CONS] Routine Consult to Physical Therapy [PT Evaluation and Treatment] [CONS] Routine 06/28/17 15:07 Albuterol [Proventil Neb Soln] 2.5 mg NEB Q4H PRN Isolation [COMM] Routine 06/28/17 15:08 RT Aerosol Therapy [RC] ASDIRECTED 06/28/17 15:21 Acetaminophen [Tylenol] 650 mg PO Q6H PRN 06/28/17 16:00 glipiZIDE [Glucotrol XL] 10 mg PO BIDAC 06/28/17 16:12 RESPIRATORY PANEL BY PCR [MREF] Routine 06/28/17 17:00 metFORMIN [Glucophage] 1,000 mg PO BIDMEALS 06/28/17 17:15 STREP PNEUMONIAE ANTIGEN [MREF] Routine 06/28/17 18:23 Code Status [Resuscitation Status] Routine 06/28/17 21:00 Famotidine [Pepcid] 20 mg PO BEDTIME Simvastatin [Zocor] 5 mg PO BEDTIME Temazepam [Restoril] 7.5 mg PO BEDTIME PRN guaiFENesin [Mucinex] 600 mg PO BID 06/28/17 Dinner ADA Diabetic [[employer] Diet] [DIET] 06/29/17 09:00 Allopurinol [Zyloprim] 300 mg PO DAILY Aspirin 81 mg PO DAILY Enoxaparin [Lovenox] 40 mg SUBCUT DAILY Lisinopril [Prinivil] 10 mg PO DAILY Sertraline [Zoloft] 50 mg PO DAILY 06/29/17 12:16 Consult to Diabetic Nurse Specialist [CONS] Routine 06/29/17 13:32 hydrALAZINE [Apresoline] 20 mg IVPUSH Q8H PRN 06/29/17 13:33 methylPREDNISolone Sod Succ [Solu-MEDROL] 125 mg IVPUSH Q8H 06/29/17 13:45 Sodium Chloride 0.45% @ 100 MLS/HR(1,000ml) Sodium Chloride 0.45% 1,000 ml IV ASDIRECTED 06/30/17 05:00 BMP [BASIC METABOLIC PANEL,BMP] [CHEM] DAILY CBC WITH AUTO DIFF [HEME] DAILY CRP [C-REACTIVE PROTEIN] [CHEM] DAILY LACTIC ACID [CHEM] DAILY LIPID PANEL [CHEM] DAILY 06/30/17 08:00 CXR [Chest 2V] [CR] Routine 07/01/17 05:00 BMP [BASIC METABOLIC PANEL,BMP] [CHEM] DAILY CBC WITH AUTO DIFF [HEME] DAILY CRP [C-REACTIVE PROTEIN] [CHEM] DAILY LACTIC ACID [CHEM] DAILY LIPID PANEL [CHEM] DAILY 07/02/17 05:00 BMP [BASIC METABOLIC PANEL,BMP] [CHEM] DAILY CBC WITH AUTO DIFF [HEME] DAILY CRP [C-REACTIVE PROTEIN] [CHEM] DAILY LACTIC ACID [CHEM] DAILY LIPID PANEL [CHEM] DAILY - Plan Plan:: Impression: COPD exacerbation with hypoxia; denies tobacco; refusing Habitrol Acute bronchitis cf PNA Query sick contact Morbid obesity, BMI 44.2 kg Query sleep apnea Headache, query sinusitis Chronic DM type II with impaired vision Hx of retinal detachment Hx of anxiety/depression HTN HLD with statin Plan: 1999 ADA; dietary consult re: diabetic choices; wgt loss Resp infection work up IV steroids IV Zithromax Pulmonary toilet NEBS scheduled/prn Home meds Daily labs CM/PT/OT consults DVT/GI prophylaxis
[2017-06-29] MEDS: Azithromycin 500 MG in Sodium Chloride 0.9% 250 ML IV SCH (13:42)
[2017-06-29] MEDS ORDERED: Sodium Chloride 0.45% 1,000 ML IV SCH (13:45)
[2017-06-29] MEDS ORDERED: traMADol 50 MG Tab PO PRN (15:35)
[2017-06-29] MEDS ORDERED: LORazepam 2 MG/ML MDV IVPUSH PRN (18:10)
[2017-06-29] MEDS: Simvastatin 10 MG Tab PO SCH (21:28)
[2017-06-29] MEDS: Famotidine 20 MG Tab PO SCH (21:33)
[2017-06-29] MEDS: Temazepam 7.5 MG Cap PO PRN (21:35)
[2017-06-30] MEDS: methylPREDNISolone Sodium Succinate 125 MG/2 ML SDV IVPUSH SCH ×4 (00:51→22:00)
[2017-06-30] MEDS: glipiZIDE 5 MG Tab.ER PO SCH ×2 (07:08→15:16)
[2017-06-30] MEDS: metFORMIN 500 MG Tab PO SCH (07:08)
[2017-06-30] MEDS: Insulin Aspart 100 Units/ML 3 ML Pen SUBCUT SCH ×3 (07:56→17:09)
[2017-06-30] MEDS: Sertraline 50 MG Tab PO SCH (08:05)
[2017-06-30] MEDS: guaiFENesin 600 MG Tab.ER PO SCH ×2 (08:05→21:05)
[2017-06-30] MEDS: Aspirin 81 MG Tab.Chew PO SCH (08:05)
[2017-06-30] MEDS: Allopurinol 300 MG Tab PO SCH (08:05)
[2017-06-30] MEDS: Enoxaparin 40 MG/0.4 ML Syringe SUBCUT SCH (08:07)
--- NOTE | 2017-06-30 08:26 | CR ---
Chest: 2 views of the chest were obtained. Comparison: Prior chest x-ray 06/28/17. Heart size is normal. Upper mediastinum is normal. Minimal atelectasis/scarring is seen within both lungs. Lungs otherwise are clear. Bony structures appear unremarkable for the patient's age. Surgical clips are seen within the upper abdomen. Impression: 1. Minimal atelectasis within both lungs. Other incidental findings. 2. Nothing acute is seen. Diagnostic code #2
[2017-06-30] MEDS: Albuterol/Ipratropium 3.0-0.5 MG/3 ML Neb Soln NEB SCH ×4 (08:58→21:31)
--- NOTE | 2017-06-30 13:42 | PCM.PN ---
- General Info Date of Service: 06/30/17 Functional Status: Reports: Tolerating Diet, Ambulating, Urinating, Incentive Spirometry - Review of Systems General: Reports: Weakness HEENT: Reports: No Symptoms Pulmonary: Reports: Shortness of Breath Cardiovascular: Reports: No Symptoms Gastrointestinal: Reports: No Symptoms Genitourinary: Reports: No Symptoms Musculoskeletal: Reports: No Symptoms Skin: Reports: No Symptoms Neurological: Reports: No Symptoms Psychiatric: Reports: No Symptoms - Patient Data Vitals - Most Recent: Last Vital Signs Temp 36.8 C 06/30/17 11:34 Pulse 93 06/30/17 11:34 Resp 16 06/30/17 11:34 BP 154/88 H 06/30/17 11:34 Pulse Ox 92 L 06/30/17 11:34 Weight - Most Recent: 119.204 kg I&O - Last 24 Hours: Intake & Output 06/29/17 06/30/17 06/30/17 22:59 06:59 14:59 Intake Total 1650 1200 180 Output Total 1700 1225 Balance -50 -25 180 Lab Results Last 24 Hours: Laboratory Results - last 24 hr 06/29/17 06/29/17 06/29/17 Range/Units 16:49 18:10 20:28 WBC (3.98-10.04) K/mm3 RBC (3.98-5.22) M/mm3 Hgb (11.2-15.7) gm/L Hct (34.1-44.9) % MCV (79.4-94.8) fl MCH (25.6-32.2) pg MCHC (32.2-35.5) g/dl RDW Std Deviation (36.4-46.3) fL Plt Count (182-369) K/mm3 MPV (9.4-12.3) fl Neut % (Auto) (34.0-71.1) % Lymph % (Auto) (19.3-51.7) % [place] % (Auto) (4.7-12.5) % Eos % (Auto) (0.7-5.8) Baso % (Auto) (0.1-1.2) % Neut # (Auto) (1.56-6.13) K/mm3 Lymph # (Auto) (1.18-3.74) K/mm3 [place] # (Auto) (0.24-0.36) K/mm3 Eos # (Auto) (0.04-0.36) K/mm3 Baso # (Auto) (0.01-0.08) K/mm3 Manual Slide Review Sodium (136-145) mEq/L Potassium (3.5-5.1) mEq/L Chloride (98-107) mEq/L Carbon Dioxide (21-32) mEq/L Anion Gap (5-15) BUN (7-18) mg/dL Creatinine (0.55-1.02) mg/dL Est Cr Clr Drug Dosing mL/min Estimated GFR (MDRD) (>60) mL/min BUN/Creatinine Ratio (14-18) Glucose (80-115) mg/dL POC Glucose 336 H 336 H (80-115) mg/dL Lactic Acid 6.6 H (0.4-2.0) mmol/L Calcium (8.5-10.1) mg/dL C-Reactive Protein (<1.0) mg/dL Triglycerides (<150) mg/dL Cholesterol (<200) mg/dL LDL Cholesterol Direct (<100) mg/dL HDL Cholesterol (40-59) mg/dL 06/30/17 06/30/17 06/30/17 Range/Units 06:10 06:10 06:10 WBC 13.44 H (3.98-10.04) K/mm3 RBC 4.02 (3.98-5.22) M/mm3 Hgb 10.8 L (11.2-15.7) gm/L Hct 35.9 (34.1-44.9) % MCV 89.3 (79.4-94.8) fl MCH 26.9 (25.6-32.2) pg MCHC 30.1 L (32.2-35.5) g/dl RDW Std Deviation 47.4 H (36.4-46.3) fL Plt Count 213 (182-369) K/mm3 MPV 10.3 (9.4-12.3) fl Neut % (Auto) 90.4 H (34.0-71.1) % Lymph % (Auto) 6.5 L (19.3-51.7) % [place] % (Auto) 2.7 L (4.7-12.5) % Eos % (Auto) 0 L (0.7-5.8) Baso % (Auto) 0.0 L (0.1-1.2) % Neut # (Auto) 12.15 H (1.56-6.13) K/mm3 Lymph # (Auto) 0.88 L (1.18-3.74) K/mm3 [place] # (Auto) 0.36 (0.24-0.36) K/mm3 Eos # (Auto) 0.00 L (0.04-0.36) K/mm3 Baso # (Auto) 0.00 L (0.01-0.08) K/mm3 Manual Slide Review Abnormal smear Sodium 136 (136-145) mEq/L Potassium 4.9 (3.5-5.1) mEq/L Chloride 102 (98-107) mEq/L Carbon Dioxide 27 (21-32) mEq/L Anion Gap 11.9 (5-15) BUN 31 H (7-18) mg/dL Creatinine 1.1 H (0.55-1.02) mg/dL Est Cr Clr Drug Dosing 42.85 mL/min Estimated GFR (MDRD) 50 (>60) mL/min BUN/Creatinine Ratio 28.2 H (14-18) Glucose 362 H (80-115) mg/dL POC Glucose (80-115) mg/dL Lactic Acid 3.0 H (0.4-2.0) mmol/L Calcium 9.0 (8.5-10.1) mg/dL C-Reactive Protein < 0.2 (<1.0) mg/dL Triglycerides 177 H (<150) mg/dL Cholesterol 140 (<200) mg/dL LDL Cholesterol Direct 77 (<100) mg/dL HDL Cholesterol 46.0 (40-59) mg/dL 06/30/17 06/30/17 Range/Units 07:06 10:53 WBC (3.98-10.04) K/mm3 RBC (3.98-5.22) M/mm3 Hgb (11.2-15.7) gm/L Hct (34.1-44.9) % MCV (79.4-94.8) fl MCH (25.6-32.2) pg MCHC (32.2-35.5) g/dl RDW Std Deviation (36.4-46.3) fL Plt Count (182-369) K/mm3 MPV (9.4-12.3) fl Neut % (Auto) (34.0-71.1) % Lymph % (Auto) (19.3-51.7) % [place] % (Auto) (4.7-12.5) % Eos % (Auto) (0.7-5.8) Baso % (Auto) (0.1-1.2) % Neut # (Auto) (1.56-6.13) K/mm3 Lymph # (Auto) (1.18-3.74) K/mm3 [place] # (Auto) (0.24-0.36) K/mm3 Eos # (Auto) (0.04-0.36) K/mm3 Baso # (Auto) (0.01-0.08) K/mm3 Manual Slide Review Sodium (136-145) mEq/L Potassium (3.5-5.1) mEq/L Chloride (98-107) mEq/L Carbon Dioxide (21-32) mEq/L Anion Gap (5-15) BUN (7-18) mg/dL Creatinine (0.55-1.02) mg/dL Est Cr Clr Drug Dosing mL/min Estimated GFR (MDRD) (>60) mL/min BUN/Creatinine Ratio (14-18) Glucose (80-115) mg/dL POC Glucose 352 H 394 H (80-115) mg/dL Lactic Acid (0.4-2.0) mmol/L Calcium (8.5-10.1) mg/dL C-Reactive Protein (<1.0) mg/dL Triglycerides (<150) mg/dL Cholesterol (<200) mg/dL LDL Cholesterol Direct (<100) mg/dL HDL Cholesterol (40-59) mg/dL Antoni Results Last 24 Hours: Microbiology 06/28/17 17:15 Streptococcus pneumoniae Antigen (M - Final Urine 06/28/17 16:12 Respiratory Virus Panel (PCR) ([facility]) - Final Nasopharyngeal Swab Med Orders - Current: Current Medications Acetaminophen (Tylenol) 650 mg PO Q6H PRN PRN Reason: Pain/Fever Last Admin: 06/29/17 13:40 Dose: 650 mg Albuterol (Proventil Neb Soln) 2.5 mg NEB Q4H PRN PRN Reason: Shortness of Breath Albuterol/Ipratropium (Duoneb 3.0-0.5 Mg/3 Ml) 3 ml NEB QID COUNTS INCLUDE 234 BEDS AT THE [facility] Last Admin: 06/30/17 08:58 Dose: 3 ml Allopurinol (Zyloprim) 300 mg PO DAILY COUNTS INCLUDE 234 BEDS AT THE [facility] Last Admin: 06/30/17 08:05 Dose: 300 mg Aspirin (Aspirin) 81 mg PO DAILY COUNTS INCLUDE 234 BEDS AT THE [facility] Last Admin: 06/30/17 08:05 Dose: 81 mg Dextrose/Water (Dextrose 50% In Water) 50 ml IVPUSH ASDIRECTED PRN PRN Reason: Hypoglycemia Enoxaparin Sodium (Lovenox) 40 mg SUBCUT DAILY COUNTS INCLUDE 234 BEDS AT THE [facility] Last Admin: 06/30/17 08:07 Dose: 40 mg Famotidine (Pepcid) 20 mg PO BEDTIME COUNTS INCLUDE 234 BEDS AT THE [facility] Last Admin: 06/29/17 21:33 Dose: 20 mg Glipizide (Glucotrol Xl) 10 mg PO BIDAC COUNTS INCLUDE 234 BEDS AT THE [facility] Last Admin: 06/30/17 07:08 Dose: 10 mg Guaifenesin (Mucinex) 600 mg PO BID COUNTS INCLUDE 234 BEDS AT THE [facility] Last Admin: 06/30/17 08:05 Dose: 600 mg Hydralazine HCl (Apresoline) 20 mg IVPUSH Q8H PRN PRN Reason: Hypertension Azithromycin 500 mg/ Sodium (Chloride) 250 mls @ 250 mls/hr IV Q24H COUNTS INCLUDE 234 BEDS AT THE [facility] Last Admin: 06/29/17 13:42 Dose: 250 mls/hr Insulin Aspart (Novolog) 0 unit SUBCUT QIDACANDBED COUNTS INCLUDE 234 BEDS AT THE [facility] PRN Reason: Protocol Last Admin: 06/30/17 11:14 Dose: 5 units Lisinopril (Prinivil) 10 mg PO DAILY COUNTS INCLUDE 234 BEDS AT THE [facility] Last Admin: 06/29/17 08:09 Dose: 10 mg Lorazepam (Ativan) 0.5 mg IVPUSH Q8H PRN PRN Reason: Anxiety Metformin HCl (Glucophage) 1,000 mg PO BIDMEALS COUNTS INCLUDE 234 BEDS AT THE [facility] Last Admin: 06/30/17 07:08 Dose: 1,000 mg Methylprednisolone Sodium Succinate (Solu-Medrol) 125 mg IVPUSH Q8H COUNTS INCLUDE 234 BEDS AT THE [facility] Last Admin: 06/30/17 07:58 Dose: 125 mg Sertraline HCl (Zoloft) 50 mg PO DAILY COUNTS INCLUDE 234 BEDS AT THE [facility] Last Admin: 06/30/17 08:05 Dose: 50 mg Simvastatin (Zocor) 5 mg PO BEDTIME COUNTS INCLUDE 234 BEDS AT THE [facility] Last Admin: 06/29/17 21:28 Dose: 5 mg Temazepam (Restoril) 7.5 mg PO BEDTIME PRN PRN Reason: Insomnia Last Admin: 06/29/17 21:35 Dose: 7.5 mg Tramadol HCl (Ultram) 100 mg PO Q8H PRN PRN Reason: Pain Last Admin: 06/29/17 17:02 Dose: 100 mg Discontinued Medications Albuterol/Ipratropium (Duoneb 3.0-0.5 Mg/3 Ml) 3 ml NEB ONETIME ONE Stop: 06/28/17 08:18 Last Admin: 06/28/17 08:26 Dose: 3 ml Hydromorphone HCl (Dilaudid) 0.5 mg IVPUSH ONETIME ONE Stop: 06/28/17 08:21 Last Admin: 06/28/17 08:38 Dose: 0.5 mg Sodium Chloride (Normal Saline) 1,000 mls @ 75 mls/hr IV ASDIRECTED COUNTS INCLUDE 234 BEDS AT THE [facility] Last Admin: 06/28/17 08:36 Dose: 75 mls/hr Sodium Chloride (Sodium Chloride 0.45%) 1,000 mls @ 100 mls/hr IV ASDIRECTED COUNTS INCLUDE 234 BEDS AT THE [facility] Stop: 06/29/17 23:44 Last Admin: 06/29/17 15:24 Dose: 100 mls/hr Influenza Virus Vaccine (Pharmacy To Dose - Influenza Vaccine) 1 each IM ONETIME ONE Stop: 06/28/17 12:36 Last Admin: 06/29/17 13:20 Dose: Not Given Influenza Virus Vaccine (Fluzone High-Dose ) 180 mcg IM .ONCE ONE Stop: 06/28/17 14:01 Methylprednisolone Sodium Succinate (Solu-Medrol) 125 mg IVPUSH ONETIME ONE Stop: 06/28/17 09:29 Last Admin: 06/28/17 09:37 Dose: 125 mg Methylprednisolone Sodium Succinate (Solu-Medrol) 125 mg IVPUSH Q6H COUNTS INCLUDE 234 BEDS AT THE [facility] Last Admin: 06/29/17 14:47 Dose: Not Given Miscellaneous Information (Remove Patch) 0 ea TRDERM DAILY COUNTS INCLUDE 234 BEDS AT THE [facility] Nicotine (Habitrol) 21 mg TRDERM DAILY COUNTS INCLUDE 234 BEDS AT THE [facility] Last Admin: 06/29/17 08:10 Dose: Not Given Ondansetron HCl (Zofran) 4 mg IVPUSH ONETIME ONE Stop: 06/28/17 08:21 Last Admin: 06/28/17 08:36 Dose: 4 mg - Exam Quality Assessment: Supplemental Oxygen, DVT Prophylaxis General: Alert, Oriented, Cooperative, No Acute Distress HEENT: Pupils Equal, Pupils Reactive, EOMI Neck: Trachea Midline, No JVD Lungs: Normal Respiratory Effort Cardiovascular: Regular Rate, Regular Rhythm GI/Abdominal Exam: Normal Bowel Sounds, Soft, Non-Tender, No Organomegaly, No Distention (Female) Exam: Deferred Back Exam: Normal Inspection Extremities: Normal Inspection, Normal Capillary Refill Skin: Warm Wound/Incisions: Healing Well Neurological: No New Focal Deficit Psy/Mental Status: Alert, Normal Affect, Normal Mood - Problem List & Annotations (1) Acute exacerbation of chronic obstructive pulmonary disease (COPD) SNOMED Code(s): 806867598 Code(s): J44.1 - CHRONIC OBSTRUCTIVE PULMONARY DISEASE W (ACUTE) EXACERBATION Status: Acute Current Visit: Yes (2) Morbid obesity with BMI of 40.0-44.9, adult SNOMED Code(s): 649442184 Code(s): E66.01 - MORBID (SEVERE) OBESITY DUE TO EXCESS CALORIES; Z68.41 - BODY MASS INDEX (BMI) 40.0-44.9, ADULT Status: Acute Current Visit: Yes (3) Type 2 diabetes mellitus SNOMED Code(s): 89127653 Code(s): E11.9 - TYPE 2 DIABETES MELLITUS WITHOUT COMPLICATIONS Status: Acute Current Visit: Yes Qualifiers: Diabetes mellitus complication status: with other specified complication 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 use: with fpc use Qualified Code(s) : E11.69 - Type 2 diabetes mellitus with other specified complication; Z79.4 - equipment operator intermodal yard (current) use of insulin; Z79.4 - equipment operator intermodal yard (current) use of insulin; Z79.4 - halfway (current) use of insulin; Z79.4 - equipment operator intermodal yard (current) use of insulin (4) Acute bronchitis SNOMED Code(s): 66809218 Code(s): J20.9 - ACUTE BRONCHITIS, UNSPECIFIED Status: Acute Priority: High Current Visit: No Qualifiers: Bronchitis organism: unspecified organism Qualified Code(s): J20.9 - Acute bronchitis, unspecified (5) COPD exacerbation SNOMED Code(s): 702949637237691 Code(s): J44.1 - CHRONIC OBSTRUCTIVE PULMONARY DISEASE W (ACUTE) EXACERBATION Status: Acute Priority: High Current Visit: No (6) Hypoxia SNOMED Code(s): 694558296 Code(s): R09.02 - HYPOXEMIA Status: Acute Priority: High Current Visit : No - Problem List Review Problem List Initiated/Reviewed/Updated: Yes - My Orders Last 24 Hours: My Active Orders 06/29/17 13:32 hydrALAZINE [Apresoline] 20 mg IVPUSH Q8H PRN 06/29/17 15:35 traMADol [Ultram] 100 mg PO Q8H PRN 06/29/17 16:00 methylPREDNISolone Sod Succ [Solu-MEDROL] 125 mg IVPUSH Q8H 06/29/17 18:10 LORazepam [Ativan] 0.5 mg IVPUSH Q8H PRN 07/01/17 05:00 BMP [BASIC METABOLIC PANEL,BMP] [CHEM] DAILY CBC WITH AUTO DIFF [HEME] DAILY CRP [C-REACTIVE PROTEIN] [CHEM] DAILY LACTIC ACID [CHEM] DAILY LIPID PANEL [CHEM] DAILY 07/02/17 05:00 BMP [BASIC METABOLIC PANEL,BMP] [CHEM] DAILY CBC WITH AUTO DIFF [HEME] DAILY CRP [C-REACTIVE PROTEIN] [CHEM] DAILY LACTIC ACID [CHEM] DAILY LIPID PANEL [CHEM] DAILY - Plan Plan:: Impression: COPD exacerbation with hypoxia; denies tobacco; refusing Habitrol Acute bronchitis Query sick contact Morbid obesity, BMI 44.2 kg Query sleep apnea Headache, query sinusitis 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
[2017-06-30] MEDS: Azithromycin 500 MG in Sodium Chloride 0.9% 250 ML IV SCH (15:17)
[2017-06-30] MEDS ORDERED: Insulin Aspart 100 Units/ML 3 ML Pen SUBCUT STA (20:55)
[2017-06-30] MEDS: Simvastatin 10 MG Tab PO SCH (21:05)
[2017-06-30] MEDS: Famotidine 20 MG Tab PO SCH (21:05)
[2017-06-30] MEDS: Temazepam 7.5 MG Cap PO PRN (21:07)
[2017-06-30] MEDS: Acetaminophen Soln 650 MG/20.3 ML UD Cup PO PRN (21:11)
[2017-07-01] MEDS: glipiZIDE 5 MG Tab.ER PO SCH ×2 (06:21→16:17)
[2017-07-01] MEDS: methylPREDNISolone Sodium Succinate 125 MG/2 ML SDV IVPUSH SCH (06:22)
[2017-07-01] MEDS: Insulin Aspart 100 Units/ML 3 ML Pen SUBCUT SCH ×4 (07:46→21:39)
[2017-07-01] MEDS: Allopurinol 300 MG Tab PO SCH (07:59)
[2017-07-01] MEDS: Sertraline 50 MG Tab PO SCH (07:59)
[2017-07-01] MEDS: guaiFENesin 600 MG Tab.ER PO SCH ×2 (07:59→21:38)
[2017-07-01] MEDS: Enoxaparin 40 MG/0.4 ML Syringe SUBCUT SCH (08:00)
[2017-07-01] MEDS: Aspirin 81 MG Tab.Chew PO SCH (08:00)
[2017-07-01] MEDS: Albuterol/Ipratropium 3.0-0.5 MG/3 ML Neb Soln NEB SCH ×4 (08:58→20:41)
[2017-07-01] MEDS ORDERED: Simvastatin 10 MG Tab PO SCH (11:03)
[2017-07-01] MEDS: Acetaminophen Soln 650 MG/20.3 ML UD Cup PO PRN (16:18)
--- NOTE | 2017-07-01 18:15 | PCM.PN ---
- General Info Date of Service: 07/01/17 Functional Status: Reports: Pain Controlled, Tolerating Diet, Ambulating, Urinating - Review of Systems General: Reports: Weakness HEENT: Reports: No Symptoms Pulmonary: Reports: Shortness of Breath Cardiovascular: Reports: No Symptoms Gastrointestinal: Reports: No Symptoms Genitourinary: Reports: No Symptoms Musculoskeletal: Reports: No Symptoms Skin: Reports: No Symptoms Neurological: Reports: No Symptoms Psychiatric: Reports: No Symptoms - Patient Data Vitals - Most Recent: Last Vital Signs Temp 36.5 C 07/01/17 15:11 Pulse 83 07/01/17 15:11 Resp 18 07/01/17 15:11 BP 116/65 07/01/17 15:11 Pulse Ox 93 L 07/01/17 17:03 Weight - Most Recent: 118.705 kg I&O - Last 24 Hours: Intake & Output 07/01/17 07/01/17 07/01/17 06:59 14:59 22:59 Intake Total 800 30 0 Output Total 1875 Balance -1075 30 0 Lab Results Last 24 Hours: Laboratory Results - last 24 hr 06/30/17 06/30/17 07/01/17 Range/Units 16:35 20:55 00:15 WBC (3.98-10.04) K/mm3 RBC (3.98-5.22) M/mm3 Hgb (11.2-15.7) gm/L Hct (34.1-44.9) % MCV (79.4-94.8) fl MCH (25.6-32.2) pg MCHC (32.2-35.5) g/dl RDW Std Deviation (36.4-46.3) fL Plt Count (182-369) K/mm3 MPV (9.4-12.3) fl Neut % (Auto) (34.0-71.1) % Lymph % (Auto) (19.3-51.7) % [place] % (Auto) (4.7-12.5) % Eos % (Auto) (0.7-5.8) Baso % (Auto) (0.1-1.2) % Neut # (Auto) (1.56-6.13) K/mm3 Lymph # (Auto) (1.18-3.74) K/mm3 [place] # (Auto) (0.24-0.36) K/mm3 Eos # (Auto) (0.04-0.36) K/mm3 Baso # (Auto) (0.01-0.08) K/mm3 Manual Slide Review Sodium (136-145) mEq/L Potassium (3.5-5.1) mEq/L Chloride (98-107) mEq/L Carbon Dioxide (21-32) mEq/L Anion Gap (5-15) BUN (7-18) mg/dL Creatinine (0.55-1.02) mg/dL Est Cr Clr Drug Dosing mL/min Estimated GFR (MDRD) (>60) mL/min BUN/Creatinine Ratio (14-18) Glucose 444 H (80-115) mg/dL POC Glucose 333 H 372 H (80-115) mg/dL Lactic Acid (0.4-2.0) mmol/L Calcium (8.5-10.1) mg/dL C-Reactive Protein (<1.0) mg/dL Triglycerides (<150) mg/dL Cholesterol (<200) mg/dL LDL Cholesterol Direct (<100) mg/dL HDL Cholesterol (40-59) mg/dL 07/01/17 07/01/17 07/01/17 Range/Units 06:19 07:20 07:20 WBC 12.67 H (3.98-10.04) K/mm3 RBC 4.11 (3.98-5.22) M/mm3 Hgb 11.2 (11.2-15.7) gm/L Hct 35.9 (34.1-44.9) % MCV 87.3 (79.4-94.8) fl MCH 27.3 (25.6-32.2) pg MCHC 31.2 L (32.2-35.5) g/dl RDW Std Deviation 46.3 (36.4-46.3) fL Plt Count 221 (182-369) K/mm3 MPV 10.1 (9.4-12.3) fl Neut % (Auto) 89.2 H (34.0-71.1) % Lymph % (Auto) 6.6 L (19.3-51.7) % [place] % (Auto) 3.7 L (4.7-12.5) % Eos % (Auto) 0 L (0.7-5.8) Baso % (Auto) 0.0 L (0.1-1.2) % Neut # (Auto) 11.30 H (1.56-6.13) K/mm3 Lymph # (Auto) 0.84 L (1.18-3.74) K/mm3 [place] # (Auto) 0.47 H (0.24-0.36) K/mm3 Eos # (Auto) 0.00 L (0.04-0.36) K/mm3 Baso # (Auto) 0.00 L (0.01-0.08) K/mm3 Manual Slide Review Abnormal smear Sodium 135 L (136-145) mEq/L Potassium 4.7 (3.5-5.1) mEq/L Chloride 101 (98-107) mEq/L Carbon Dioxide 27 (21-32) mEq/L Anion Gap 11.7 (5-15) BUN 33 H (7-18) mg/dL Creatinine 1.0 (0.55-1.02) mg/dL Est Cr Clr Drug Dosing 47.14 mL/min Estimated GFR (MDRD) 55 (>60) mL/min BUN/Creatinine Ratio 33.0 H (14-18) Glucose 359 H (80-115) mg/dL POC Glucose 358 H (80-115) mg/dL Lactic Acid (0.4-2.0) mmol/L Calcium 9.2 (8.5-10.1) mg/dL C-Reactive Protein < 0.2 (<1.0) mg/dL Triglycerides 178 H (<150) mg/dL Cholesterol 136 (<200) mg/dL LDL Cholesterol Direct 68 (<100) mg/dL HDL Cholesterol 48.0 (40-59) mg/dL 07/01/17 07/01/17 07/01/17 Range/Units 07:20 10:41 11:14 WBC (3.98-10.04) K/mm3 RBC (3.98-5.22) M/mm3 Hgb (11.2-15.7) gm/L Hct (34.1-44.9) % MCV (79.4-94.8) fl MCH (25.6-32.2) pg MCHC (32.2-35.5) g/dl RDW Std Deviation (36.4-46.3) fL Plt Count (182-369) K/mm3 MPV (9.4-12.3) fl Neut % (Auto) (34.0-71.1) % Lymph % (Auto) (19.3-51.7) % [place] % (Auto) (4.7-12.5) % Eos % (Auto) (0.7-5.8) Baso % (Auto) (0.1-1.2) % Neut # (Auto) (1.56-6.13) K/mm3 Lymph # (Auto) (1.18-3.74) K/mm3 [place] # (Auto) (0.24-0.36) K/mm3 Eos # (Auto) (0.04-0.36) K/mm3 Baso # (Auto) (0.01-0.08) K/mm3 Manual Slide Review Sodium (136-145) mEq/L Potassium (3.5-5.1) mEq/L Chloride (98-107) mEq/L Carbon Dioxide (21-32) mEq/L Anion Gap (5-15) BUN (7-18) mg/dL Creatinine (0.55-1.02) mg/dL Est Cr Clr Drug Dosing mL/min Estimated GFR (MDRD) (>60) mL/min BUN/Creatinine Ratio (14-18) Glucose 398 H (80-115) mg/dL POC Glucose 400 H (80-115) mg/dL Lactic Acid 3.2 H (0.4-2.0) mmol/L Calcium (8.5-10.1) mg/dL C-Reactive Protein (<1.0) mg/dL Triglycerides (<150) mg/dL Cholesterol (<200) mg/dL LDL Cholesterol Direct (<100) mg/dL HDL Cholesterol (40-59) mg/dL 07/01/17 Range/Units 16:57 WBC (3.98-10.04) K/mm3 RBC (3.98-5.22) M/mm3 Hgb (11.2-15.7) gm/L Hct (34.1-44.9) % MCV (79.4-94.8) fl MCH (25.6-32.2) pg MCHC (32.2-35.5) g/dl RDW Std Deviation (36.4-46.3) fL Plt Count (182-369) K/mm3 MPV (9.4-12.3) fl Neut % (Auto) (34.0-71.1) % Lymph % (Auto) (19.3-51.7) % [place] % (Auto) (4.7-12.5) % Eos % (Auto) (0.7-5.8) Baso % (Auto) (0.1-1.2) % Neut # (Auto) (1.56-6.13) K/mm3 Lymph # (Auto) (1.18-3.74) K/mm3 [place] # (Auto) (0.24-0.36) K/mm3 Eos # (Auto) (0.04-0.36) K/mm3 Baso # (Auto) (0.01-0.08) K/mm3 Manual Slide Review Sodium (136-145) mEq/L Potassium (3.5-5.1) mEq/L Chloride (98-107) mEq/L Carbon Dioxide (21-32) mEq/L Anion Gap (5-15) BUN (7-18) mg/dL Creatinine (0.55-1.02) mg/dL Est Cr Clr Drug Dosing mL/min Estimated GFR (MDRD) (>60) mL/min BUN/Creatinine Ratio (14-18) Glucose (80-115) mg/dL POC Glucose 343 H (80-115) mg/dL Lactic Acid (0.4-2.0) mmol/L Calcium (8.5-10.1) mg/dL C-Reactive Protein (<1.0) mg/dL Triglycerides (<150) mg/dL Cholesterol (<200) mg/dL LDL Cholesterol Direct (<100) mg/dL HDL Cholesterol (40-59) mg/dL Med Orders - Current: Current Medications Acetaminophen (Tylenol) 650 mg PO Q6H PRN PRN Reason: Pain/Fever Last Admin: 07/01/17 16:18 Dose: 650 mg Albuterol (Proventil Neb Soln) 2.5 mg NEB Q4H PRN PRN Reason: Shortness of Breath Albuterol/Ipratropium (Duoneb 3.0-0.5 Mg/3 Ml) 3 ml NEB QID [place] Last Admin: 07/01/17 17:02 Dose: 3 ml Allopurinol (Zyloprim) 300 mg PO DAILY [facility] Last Admin: 07/01/17 07:59 Dose: 300 mg Aspirin (Aspirin) 81 mg PO DAILY [facility] Last Admin: 07/01/17 08:00 Dose: 81 mg Azithromycin (Zithromax) 250 mg PO DAILY [facility] Dextrose/Water (Dextrose 50% In Water) 50 ml IVPUSH ASDIRECTED PRN PRN Reason: Hypoglycemia Enoxaparin Sodium (Lovenox) 40 mg SUBCUT DAILY [facility] Last Admin: 07/01/17 08:00 Dose: 40 mg Famotidine (Pepcid) 20 mg PO BEDTIME [facility] Last Admin: 06/30/17 21:05 Dose: 20 mg Glipizide (Glucotrol Xl) 10 mg PO BIDAC [facility] Last Admin: 07/01/17 16:17 Dose: 10 mg Guaifenesin (Mucinex) 600 mg PO BID [facility] Last Admin: 07/01/17 07:59 Dose: 600 mg Hydralazine HCl (Apresoline) 20 mg IVPUSH Q8H PRN PRN Reason: Hypertension Last Admin: 06/30/17 16:10 Dose: 20 mg Insulin Aspart (Novolog) 0 unit SUBCUT QIDACANDBED [facility] PRN Reason: Protocol Last Admin: 07/01/17 17:15 Dose: 12 units Lisinopril (Prinivil) 10 mg PO DAILY [facility] Last Admin: 06/29/17 08:09 Dose: 10 mg Lorazepam (Ativan) 0.5 mg IVPUSH Q8H PRN PRN Reason: Anxiety Metformin HCl (Glucophage) 1,000 mg PO BIDMEALS [facility] Last Admin: 06/30/17 07:08 Dose: 1,000 mg Prednisone (Prednisone) 40 mg PO WITHBREAKFAST [facility] Sertraline HCl (Zoloft) 50 mg PO DAILY [facility] Last Admin: 07/01/17 07:59 Dose: 50 mg Simvastatin (Zocor) 10 mg PO BEDTIME [facility] Temazepam (Restoril) 7.5 mg PO BEDTIME PRN PRN Reason: Insomnia Last Admin: 06/30/17 21:07 Dose: 7.5 mg Tramadol HCl (Ultram) 100 mg PO Q8H PRN PRN Reason: Pain Last Admin: 06/29/17 17:02 Dose: 100 mg Discontinued Medications Albuterol/Ipratropium (Duoneb 3.0-0.5 Mg/3 Ml) 3 ml NEB ONETIME ONE Stop: 06/28/17 08:18 Last Admin: 06/28/17 08:26 Dose: 3 ml Hydromorphone HCl (Dilaudid) 0.5 mg IVPUSH ONETIME ONE Stop: 06/28/17 08:21 Last Admin: 06/28/17 08:38 Dose: 0.5 mg Sodium Chloride (Normal Saline) 1,000 mls @ 75 mls/hr IV ASDIRECTED [facility] Last Admin: 06/28/17 08:36 Dose: 75 mls/hr Azithromycin 500 mg/ Sodium (Chloride) 250 mls @ 250 mls/hr IV Q24H [facility] Last Admin: 06/30/17 15:17 Dose: 250 mls/hr Sodium Chloride (Sodium Chloride 0.45%) 1,000 mls @ 100 mls/hr IV ASDIRECTED [facility] Stop: 06/29/17 23:44 Last Admin: 06/29/17 15:24 Dose: 100 mls/hr Influenza Virus Vaccine (Pharmacy To Dose - Influenza Vaccine) 1 each IM ONETIME ONE Stop: 06/28/17 12:36 Last Admin: 06/29/17 13:20 Dose: Not Given Influenza Virus Vaccine (Fluzone High-Dose ) 180 mcg IM .ONCE ONE Stop: 06/28/17 14:01 Insulin Aspart (Novolog) 0 unit SUBCUT QIDACANDBED [facility] PRN Reason: Protocol Last Admin: 06/30/17 17:09 Dose: 4 units Insulin Aspart (Novolog) 12 unit SUBCUT NOW STA Stop: 06/30/17 20:56 Last Admin: 06/30/17 21:48 Dose: 12 units Methylprednisolone Sodium Succinate (Solu-Medrol) 125 mg IVPUSH ONETIME ONE Stop: 06/28/17 09:29 Last Admin: 06/28/17 09:37 Dose: 125 mg Methylprednisolone Sodium Succinate (Solu-Medrol) 125 mg IVPUSH Q6H [facility] Last Admin: 06/29/17 14:47 Dose: Not Given Methylprednisolone Sodium Succinate (Solu-Medrol) 125 mg IVPUSH Q8H [facility] Last Admin: 06/30/17 07:58 Dose: 125 mg Methylprednisolone Sodium Succinate (Solu-Medrol) 80 mg IVPUSH Q8H [facility] Last Admin: 07/01/17 06:22 Dose: 80 mg Miscellaneous Information (Remove Patch) 0 ea TRDERM DAILY [facility] Nicotine (Habitrol) 21 mg TRDERM DAILY [facility] Last Admin: 06/29/17 08:10 Dose: Not Given Ondansetron HCl (Zofran) 4 mg IVPUSH ONETIME ONE Stop: 06/28/17 08:21 Last Admin: 06/28/17 08:36 Dose: 4 mg Simvastatin (Zocor) 5 mg PO BEDTIME [facility] Last Admin: 06/30/17 21:05 Dose: 5 mg - Exam Quality Assessment: Supplemental Oxygen, DVT Prophylaxis General: Alert, Oriented, Cooperative, No Acute Distress HEENT: Pupils Equal, Pupils Reactive, EOMI Neck: Supple, Trachea Midline, No JVD Lungs: Normal Respiratory Effort Cardiovascular: Regular Rate, Regular Rhythm GI/Abdominal Exam: Normal Bowel Sounds, Soft, Non-Tender, No Organomegaly, No Distention (Female) Exam: Deferred Back Exam: Normal Inspection Extremities: Normal Inspection, Non-Tender, No Pedal Edema Skin: Warm Neurological: No New Focal Deficit Psy/Mental Status: Alert, Normal Affect, Normal Mood - Problem List & Annotations (1) Acute exacerbation of chronic obstructive pulmonary disease (COPD) SNOMED Code(s): 674926994 Code(s): J44.1 - CHRONIC OBSTRUCTIVE PULMONARY DISEASE W (ACUTE) EXACERBATION Status: Acute Current Visit: Yes (2) Morbid obesity with BMI of 40.0-44.9, adult SNOMED Code(s): 149312212 Code(s): E66.01 - MORBID (SEVERE) OBESITY DUE TO EXCESS CALORIES; Z68.41 - BODY MASS INDEX (BMI) 40.0-44.9, ADULT Status: Acute Current Visit: Yes (3) Type 2 diabetes mellitus SNOMED Code(s): 42805193 Code(s): E11.9 - TYPE 2 DIABETES MELLITUS WITHOUT COMPLICATIONS Status: Acute Current Visit: Yes Qualifiers: Diabetes mellitus complication status: with other specified complication Diabetes mellitus longitudinal float operator insulin use: with snf use Qualified Code(s) : E11.69 - Type 2 diabetes mellitus with other specified complication; Z79.4 - penitentiary (current) use of insulin; Z79.4 - terminal make up operator (current) use of insulin; Z79.4 - penitentiary (current) use of insulin; Z79.4 - penitentiary (current) use of insulin (4) Acute bronchitis SNOMED Code(s): 82437792 Code(s): J20.9 - ACUTE BRONCHITIS, UNSPECIFIED Status: Acute Priority: High Current Visit: No Qualifiers: Bronchitis organism: unspecified organism Qualified Code(s): J20.9 - Acute bronchitis, unspecified (5) COPD exacerbation SNOMED Code(s): 405057561848821 Code(s): J44.1 - CHRONIC OBSTRUCTIVE PULMONARY DISEASE W (ACUTE) EXACERBATION Status: Acute Priority: High Current Visit: No (6) Hypoxia SNOMED Code(s): 204107629 Code(s): R09.02 - HYPOXEMIA Status: Acute Priority: High Current Visit : No - Problem List Review Problem List Initiated/Reviewed/Updated: Yes - My Orders Last 24 Hours: My Active Orders 07/01/17 07:00 Insulin Aspart [NovoLOG] See Protocol SUBCUT QIDACANDBED 07/01/17 11:03 Simvastatin [Zocor] 10 mg PO BEDTIME 07/02/17 05:00 BMP [BASIC METABOLIC PANEL,BMP] [CHEM] DAILY CBC WITH AUTO DIFF [HEME] DAILY CRP [C-REACTIVE PROTEIN] [CHEM] DAILY LACTIC ACID [CHEM] DAILY LIPID PANEL [CHEM] DAILY 07/02/17 07:00 predniSONE 40 mg PO WITHBREAKFAST 07/02/17 09:00 Azithromycin [Zithromax] 250 mg PO DAILY - Plan Plan:: Impression: COPD exacerbation with hypoxia; denies tobacco; refusing Habitrol Acute bronchitis--Zithromax 250 mg daily for 5 days; prednisone slow taper Query sick contact--unknown Morbid obesity, BMI 44.2 kg Query sleep apnea Headache, query sinusitis--resolved 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 Pulmonary toilet NEBS scheduled/prn Home meds Daily labs CM/PT/OT consults DVT/GI prophylaxis
[2017-07-01] MEDS: Famotidine 20 MG Tab PO SCH (21:39)
[2017-07-02] MEDS: glipiZIDE 5 MG Tab.ER PO SCH (06:25)
[2017-07-02] MEDS ORDERED: predniSONE 20 MG Tab PO SCH (07:00)
[2017-07-02] MEDS: Albuterol/Ipratropium 3.0-0.5 MG/3 ML Neb Soln NEB SCH (08:43)
--- NOTE | 2017-07-02 08:43 | PCM.DCSUM1 ---
Discharge Summary - Hospital Course HPI Initial Comments: 67 year old female with sudden onset of SOB, long standing history of COPD. She has had no known sick contacts. The patient activetly smokes tobacco. She admits to SOB/RODRIGUEZ, fever without chills. Has also had a cough without change in sputum; use of her home nebulizer has provided minimal relief. She has required O2 via NC to maintain her O2 saturation >90%. - Discharge Data Discharge Date: 07/02/17 (Admit Date: 06/28/17) Discharge Disposition: Home, Self-Care 01 Condition: Good - Patient Summary/Data Consults: Consultations 06/28/17 14:49 Consult to Dietary [Consult to Financial Administrator] [CONS] Routine 06/28/17 14:52 Consult to Occupational Therapy [OT Evaluation and Treatment] [CONS] Routine Consult to Physical Therapy [PT Evaluation and Treatment] [CONS] Routine 06/29/17 12:16 Consult to Diabetic Nurse Specialist [CONS] Routine Labs Pending at D/C: none Recommended Follow-up Testing/Procedures: Follow-up with Angy Davila, fine dining server at [facility], as an outpatient. Follow-up with your PCP, Lisandra Mazariegos within 7-10 days after discharge. Follow-up with outpatient painter railroad car as needed. You saw Curly here. She would be a good option for you. Call [phone] to schedule if you would like. 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 Pulmonary toilet NEBS scheduled/prn Home meds Daily labs CM/PT/OT consults DVT/GI prophylaxis Overall Prerna did quite well. She responded well to treatment. Her lipid panel was ok with the exception of high triglycerides (206). She is already on a statin. She was weaned off oxygen. Diabetic nurse educator was consulted although the patient was not very receptive to her recommendations. Dietitian was consulted as well. She was given her influenza vaccination prior to discharge. She will be discharged home today with a 12 day prednisone taper, 5 day course of zithromax, albuterol inhaler, and mucinex Rx. She should discuss with her PCP about discontinuing the mucinex and albuterol inhaler. She was instructed to follow-up with her PCP in 7-10 days of discharge. - Patient Instructions Diet: Diabetic Diet Activity: As Tolerated Notify Provider of: Fever, Increased Pain, Nausea and/or Vomiting (worseing shortness of breath or chest pain. ) - Discharge Plan Prescriptions/Med Rec: Albuterol [IJD: Ventolin HFA] 2 puff INH .TWICE DAILY 10 Days #18 gm Azithromycin [IJD: Azithromycin] 250 mg PO DAILY #5 tab guaiFENesin [Mucinex] 600 mg PO BID #14 tab.er Prednisone [IJD: Prednisone] 10 mg PO ACBREAKFAST #30 tab Home Medications: Home Meds Allopurinol [Zyloprim] 300 mg PO DAILY 04/18/15 [History] Aspirin [Sacha Chewable Aspirin] 81 mg PO DAILY 04/18/15 [History] Lisinopril 10 mg PO DAILY 04/18/15 [History] Lovastatin 10 mg PO BEDTIME 04/18/15 [History] metFORMIN [Glucophage] 1,000 mg PO BID 04/18/15 [History] Ipratropium/Albuterol Sulfate [Combivent Respimat Inhal [place]] 1 puff INH BID PRN 08/26/15 [History] Sertraline [Zoloft] 50 tab PO DAILY 08/26/15 [History] Insulin Degludec [Tresiba Flextouch U-200] 45 unit SQ BEDTIME 01/16/17 [History] glipiZIDE [Glipizide ER] 10 mg PO BID #60 01/23/17 [Rx] Albuterol/Ipratropium [DuoNeb 3.0-0.5 MG/3 ML] 3 ml NEB Q6H PRN 06/28/17 [ History] Meloxicam [Mobic] 15 mg PO DAILY 06/28/17 [History] Albuterol [IJD: Ventolin HFA] 2 puff INH .TWICE DAILY 10 Days #18 gm 07/02/17 [ Rx] Azithromycin [IJD: Azithromycin] 250 mg PO DAILY #5 tab 07/02/17 [Rx] Prednisone [IJD: Prednisone] 10 mg PO ACBREAKFAST #30 tab 07/02/17 [Rx] guaiFENesin [Mucinex] 600 mg PO BID #14 tab.er 07/02/17 [Rx] Patient Handouts: Chronic Obstructive Pulmonary Disease Exacerbation, Easy-to- Read, Chronic Obstructive Pulmonary Disease, Steps to Quit Smoking Referrals: Lisandra Mazariegos PA-C [Primary Care Provider] - 07/09/17 10:30 am (Please follow-up with your primary care doctor, Dr. Lisandra Mazariegos, on SundayJuly 09 at 1030am at [facility]. Discharge summary has been faxed to RN upon discharge. ) - Discharge Summary/Plan Comment DC Time >30 min.: Yes (45 mins) - General Info Date of Service: 07/02/17 Admission Dx/Problem (Free Text: Admission Diagnosis/Problem Admission Diagnosis/Problem COPD, Severe chronic obstructive pulmonary disease Subjective Update: In to see Prerna. She is sitting on the edge of the bed eating a cheeseburger. She has no complaints. No overnight issues. She is in very good spirits. Denies any weakness or current shortness of breath. She'll be discharged home today. Functional Status: Reports: Pain Controlled, Tolerating Diet, Ambulating, Urinating. Denies: New Symptoms - Review of Systems General: Reports: No Symptoms HEENT: Reports: No Symptoms Pulmonary: Reports: No Symptoms Cardiovascular: Reports: No Symptoms Gastrointestinal: Reports: No Symptoms Genitourinary: Reports: No Symptoms Musculoskeletal: Reports: No Symptoms Skin: Reports: No Symptoms Neurological: Reports: No Symptoms Psychiatric: Reports: No Symptoms - Patient Data Vitals - Most Recent: Last Vital Signs Temp 97.9 F 07/02/17 03:04 Pulse 80 07/02/17 03:04 Resp 32 H 07/02/17 03:04 BP 196/94 H 07/02/17 03:04 Pulse Ox 94 L 07/02/17 03:04 Weight - Most Recent: 260 lb 1.6 oz I&O - Last 24 hours: Intake & Output 07/01/17 07/02/17 07/02/17 22:59 06:59 14:59 Intake Total 1000 1250 Output Total 1725 1300 Balance -725 -50 Lab Results - Last 24 hrs: Laboratory Results - last 24 hr 07/01/17 07/01/17 07/01/17 Range/Units 10:41 11:14 16:57 WBC (3.98-10.04) K/mm3 RBC (3.98-5.22) M/mm3 Hgb (11.2-15.7) gm/L Hct (34.1-44.9) % MCV (79.4-94.8) fl MCH (25.6-32.2) pg MCHC (32.2-35.5) g/dl RDW Std Deviation (36.4-46.3) fL Plt Count (182-369) K/mm3 MPV (9.4-12.3) fl Neut % (Auto) (34.0-71.1) % Lymph % (Auto) (19.3-51.7) % [place] % (Auto) (4.7-12.5) % Eos % (Auto) (0.7-5.8) Baso % (Auto) (0.1-1.2) % Neut # (Auto) (1.56-6.13) K/mm3 Lymph # (Auto) (1.18-3.74) K/mm3 [place] # (Auto) (0.24-0.36) K/mm3 Eos # (Auto) (0.04-0.36) K/mm3 Baso # (Auto) (0.01-0.08) K/mm3 Sodium (136-145) mEq/L Potassium (3.5-5.1) mEq/L Chloride (98-107) mEq/L Carbon Dioxide (21-32) mEq/L Anion Gap (5-15) BUN (7-18) mg/dL Creatinine (0.55-1.02) mg/dL Est Cr Clr Drug Dosing mL/min Estimated GFR (MDRD) (>60) mL/min BUN/Creatinine Ratio (14-18) Glucose 398 H (80-115) mg/dL POC Glucose 400 H 343 H (80-115) mg/dL Lactic Acid (0.4-2.0) mmol/L Calcium (8.5-10.1) mg/dL C-Reactive Protein (<1.0) mg/dL Triglycerides (<150) mg/dL Cholesterol (<200) mg/dL LDL Cholesterol Direct (<100) mg/dL HDL Cholesterol (40-59) mg/dL 07/01/17 07/02/17 07/02/17 Range/Units 20:48 06:04 06:25 WBC 12.05 H (3.98-10.04) K/mm3 RBC 4.20 (3.98-5.22) M/mm3 Hgb 11.4 (11.2-15.7) gm/L Hct 36.6 (34.1-44.9) % MCV 87.1 (79.4-94.8) fl MCH 27.1 (25.6-32.2) pg MCHC 31.1 L (32.2-35.5) g/dl RDW Std Deviation 47.1 H (36.4-46.3) fL Plt Count 193 (182-369) K/mm3 MPV 9.9 (9.4-12.3) fl Neut % (Auto) 72.7 H (34.0-71.1) % Lymph % (Auto) 17.3 L (19.3-51.7) % [place] % (Auto) 8.9 (4.7-12.5) % Eos % (Auto) 0.2 L (0.7-5.8) Baso % (Auto) 0.1 (0.1-1.2) % Neut # (Auto) 8.76 H (1.56-6.13) K/mm3 Lymph # (Auto) 2.08 (1.18-3.74) K/mm3 [place] # (Auto) 1.07 H (0.24-0.36) K/mm3 Eos # (Auto) 0.03 L (0.04-0.36) K/mm3 Baso # (Auto) 0.01 (0.01-0.08) K/mm3 Sodium (136-145) mEq/L Potassium (3.5-5.1) mEq/L Chloride (98-107) mEq/L Carbon Dioxide (21-32) mEq/L Anion Gap (5-15) BUN (7-18) mg/dL Creatinine (0.55-1.02) mg/dL Est Cr Clr Drug Dosing mL/min Estimated GFR (MDRD) (>60) mL/min BUN/Creatinine Ratio (14-18) Glucose (80-115) mg/dL POC Glucose 282 H 137 H (80-115) mg/dL Lactic Acid (0.4-2.0) mmol/L Calcium (8.5-10.1) mg/dL C-Reactive Protein (<1.0) mg/dL Triglycerides (<150) mg/dL Cholesterol (<200) mg/dL LDL Cholesterol Direct (<100) mg/dL HDL Cholesterol (40-59) mg/dL 07/02/17 07/02/17 Range/Units 06:25 06:25 WBC (3.98-10.04) K/mm3 RBC (3.98-5.22) M/mm3 Hgb (11.2-15.7) gm/L Hct (34.1-44.9) % MCV (79.4-94.8) fl MCH (25.6-32.2) pg MCHC (32.2-35.5) g/dl RDW Std Deviation (36.4-46.3) fL Plt Count (182-369) K/mm3 MPV (9.4-12.3) fl Neut % (Auto) (34.0-71.1) % Lymph % (Auto) (19.3-51.7) % [place] % (Auto) (4.7-12.5) % Eos % (Auto) (0.7-5.8) Baso % (Auto) (0.1-1.2) % Neut # (Auto) (1.56-6.13) K/mm3 Lymph # (Auto) (1.18-3.74) K/mm3 [place] # (Auto) (0.24-0.36) K/mm3 Eos # (Auto) (0.04-0.36) K/mm3 Baso # (Auto) (0.01-0.08) K/mm3 Sodium 138 (136-145) mEq/L Potassium 3.8 (3.5-5.1) mEq/L Chloride 105 (98-107) mEq/L Carbon Dioxide 26 (21-32) mEq/L Anion Gap 10.8 (5-15) BUN 32 H (7-18) mg/dL Creatinine 0.9 (0.55-1.02) mg/dL Est Cr Clr Drug Dosing 52.38 mL/min Estimated GFR (MDRD) > 60 (>60) mL/min BUN/Creatinine Ratio 35.6 H (14-18) Glucose 158 H (80-115) mg/dL POC Glucose (80-115) mg/dL Lactic Acid 1.6 (0.4-2.0) mmol/L Calcium 8.7 (8.5-10.1) mg/dL C-Reactive Protein < 0.2 (<1.0) mg/dL Triglycerides 206 H (<150) mg/dL Cholesterol 128 (<200) mg/dL LDL Cholesterol Direct 56 (<100) mg/dL HDL Cholesterol 49.0 (40-59) mg/dL Med Orders - Current: Current Medications Acetaminophen (Tylenol) 650 mg PO Q6H PRN PRN Reason: Pain/Fever Last Admin: 07/01/17 16:18 Dose: 650 mg Albuterol (Proventil Neb Soln) 2.5 mg NEB Q4H PRN PRN Reason: Shortness of Breath Albuterol/Ipratropium (Duoneb 3.0-0.5 Mg/3 Ml) 3 ml NEB QID [facility] Last Admin: 07/01/17 20:41 Dose: 3 ml Allopurinol (Zyloprim) 300 mg PO DAILY [facility] Last Admin: 07/01/17 07:59 Dose: 300 mg Aspirin (Aspirin) 81 mg PO DAILY [facility] Last Admin: 07/01/17 08:00 Dose: 81 mg Azithromycin (Zithromax) 250 mg PO DAILY [facility] Stop: 07/03/17 09:01 Dextrose/Water (Dextrose 50% In Water) 50 ml IVPUSH ASDIRECTED PRN PRN Reason: Hypoglycemia Enoxaparin Sodium (Lovenox) 40 mg SUBCUT DAILY [facility] Last Admin: 07/01/17 08:00 Dose: 40 mg Famotidine (Pepcid) 20 mg PO BEDTIME [facility] Last Admin: 07/01/17 21:39 Dose: 20 mg Glipizide (Glucotrol Xl) 10 mg PO BIDAC [facility] Last Admin: 07/02/17 06:25 Dose: 10 mg Guaifenesin (Mucinex) 600 mg PO BID [facility] Last Admin: 07/01/17 21:38 Dose: 600 mg Hydralazine HCl (Apresoline) 20 mg IVPUSH Q8H PRN PRN Reason: Hypertension Last Admin: 06/30/17 16:10 Dose: 20 mg Insulin Aspart (Novolog) 0 unit SUBCUT QIDACANDBED [facility] PRN Reason: Protocol Last Admin: 07/01/17 21:39 Dose: 9 units Lisinopril (Prinivil) 10 mg PO DAILY [facility] Last Admin: 06/29/17 08:09 Dose: 10 mg Lorazepam (Ativan) 0.5 mg IVPUSH Q8H PRN PRN Reason: Anxiety Metformin HCl (Glucophage) 1,000 mg PO BIDMEALS [facility] Last Admin: 06/30/17 07:08 Dose: 1,000 mg Prednisone (Prednisone) 40 mg PO WITHBREAKFAST [facility] Last Admin: 07/02/17 06:25 Dose: 40 mg Sertraline HCl (Zoloft) 50 mg PO DAILY [facility] Last Admin: 07/01/17 07:59 Dose: 50 mg Simvastatin (Zocor) 10 mg PO BEDTIME [facility] Last Admin: 07/01/17 21:38 Dose: 10 mg Temazepam (Restoril) 7.5 mg PO BEDTIME PRN PRN Reason: Insomnia Last Admin: 06/30/17 21:07 Dose: 7.5 mg Tramadol HCl (Ultram) 100 mg PO Q8H PRN PRN Reason: Pain Last Admin: 06/29/17 17:02 Dose: 100 mg Discontinued Medications Albuterol/Ipratropium (Duoneb 3.0-0.5 Mg/3 Ml) 3 ml NEB ONETIME ONE Stop: 06/28/17 08:18 Last Admin: 06/28/17 08:26 Dose: 3 ml Hydromorphone HCl (Dilaudid) 0.5 mg IVPUSH ONETIME ONE Stop: 06/28/17 08:21 Last Admin: 06/28/17 08:38 Dose: 0.5 mg Sodium Chloride (Normal Saline) 1,000 mls @ 75 mls/hr IV ASDIRECTED [facility] Last Admin: 06/28/17 08:36 Dose: 75 mls/hr Azithromycin 500 mg/ Sodium (Chloride) 250 mls @ 250 mls/hr IV Q24H [facility] Last Admin: 06/30/17 15:17 Dose: 250 mls/hr Sodium Chloride (Sodium Chloride 0.45%) 1,000 mls @ 100 mls/hr IV ASDIRECTED [facility] Stop: 06/29/17 23:44 Last Admin: 06/29/17 15:24 Dose: 100 mls/hr Influenza Virus Vaccine (Pharmacy To Dose - Influenza Vaccine) 1 each IM ONETIME ONE Stop: 06/28/17 12:36 Last Admin: 06/29/17 13:20 Dose: Not Given Influenza Virus Vaccine (Fluzone High-Dose ) 180 mcg IM .ONCE ONE Stop: 06/28/17 14:01 Insulin Aspart (Novolog) 0 unit SUBCUT QIDACANDBED [facility] PRN Reason: Protocol Last Admin: 06/30/17 17:09 Dose: 4 units Insulin Aspart (Novolog) 12 unit SUBCUT NOW [facility] Stop: 06/30/17 20:56 Last Admin: 06/30/17 21:48 Dose: 12 units Methylprednisolone Sodium Succinate (Solu-Medrol) 125 mg IVPUSH ONETIME ONE Stop: 06/28/17 09:29 Last Admin: 06/28/17 09:37 Dose: 125 mg Methylprednisolone Sodium Succinate (Solu-Medrol) 125 mg IVPUSH Q6H [facility] Last Admin: 06/29/17 14:47 Dose: Not Given Methylprednisolone Sodium Succinate (Solu-Medrol) 125 mg IVPUSH Q8H [facility] Last Admin: 06/30/17 07:58 Dose: 125 mg Methylprednisolone Sodium Succinate (Solu-Medrol) 80 mg IVPUSH Q8H [facility] Last Admin: 07/01/17 06:22 Dose: 80 mg Miscellaneous Information (Remove Patch) 0 ea TRDERM DAILY [facility] Nicotine (Habitrol) 21 mg TRDERM DAILY [facility] Last Admin: 06/29/17 08:10 Dose: Not Given Ondansetron HCl (Zofran) 4 mg IVPUSH ONETIME ONE Stop: 06/28/17 08:21 Last Admin: 06/28/17 08:36 Dose: 4 mg Simvastatin (Zocor) 5 mg PO BEDTIME [facility] Last Admin: 06/30/17 21:05 Dose: 5 mg - Exam Quality Assessment: Reports: DVT Prophylaxis General: Reports: Alert, Oriented, Cooperative, No Acute Distress HEENT: Reports: Pupils Equal, Pupils Reactive, EOMI, Mucous Membr. Moist/[place] Neck: Reports: Supple, Trachea Midline, No JVD Lungs: Reports: Clear to Auscultation, Normal Respiratory Effort Cardiovascular: Reports: Regular Rate, Regular Rhythm GI/Abdominal Exam: Normal Bowel Sounds, Soft, Non-Tender, No Organomegaly, No Distention, No Abnormal Bruit, No Mass, Pelvis Stable (Female) Exam: Deferred Rectal (Female) Exam: Deferred Back Exam: Reports: Normal Inspection, Full Range of Motion Extremities: Normal Inspection, Normal Range of Motion, Non-Tender, No Pedal Edema, Normal Capillary Refill Skin: Reports: Warm, Dry, Intact Neurological: Reports: No New Focal Deficit Psy/Mental Status: Reports: Alert, Normal Affect, Normal Mood *Q Meaningful Use (DIS) - VTE *Q VTE Criteria *Q: - Stroke *Q Stroke Criteria *Q: - AMI *Q AMI Criteria *Q:
[2017-07-02] MEDS ORDERED: Azithromycin 250 MG Tab PO SCH (09:00)
[2017-07-02] MEDS: Allopurinol 300 MG Tab PO SCH (09:03)
[2017-07-02] MEDS: guaiFENesin 600 MG Tab.ER PO SCH (09:03)
[2017-07-02] MEDS: Aspirin 81 MG Tab.Chew PO SCH (09:03)
[2017-07-02] MEDS: Sertraline 50 MG Tab PO SCH (09:04)
[2017-07-02] MEDS: Lisinopril 10 MG Tab PO SCH (09:07)
[2017-07-02] MEDS: Enoxaparin 40 MG/0.4 ML Syringe SUBCUT SCH (09:09)
[2017-07-02 09:11] VITALS: BP 148/70
[2017-07-02] MEDS: Insulin Aspart 100 Units/ML 3 ML Pen SUBCUT SCH (09:13)
== END 2017-07-02 11:55 | disposition home or self-care (01) | DRG 191 ==
LOC: JD.ED 07:47 → JD.MS 12:00
PROVIDERS: ADMIT Internal Medicine Cardiovascular Disease; ATTEND Internal Medicine Cardiovascular Disease
PROC: 3E0234Z Introduction of Serum, Toxoid and Vaccine into Muscle, Percutaneous Approach (ICD-10-PCS; principal; 2017-07-02)
DX: J44.0 Chronic obstructive pulmonary disease with (acute) lower respiratory infection (principal); E11.9 Type 2 diabetes mellitus without complications; Z68.41 Body mass index [BMI] 40.0-44.9, adult; J20.9 Acute bronchitis, unspecified; J44.1 Chronic obstructive pulmonary disease with (acute) exacerbation; R09.02 Hypoxemia; E66.01 Morbid (severe) obesity due to excess calories; F17.210 Nicotine dependence, cigarettes, uncomplicated; E11.69 Type 2 diabetes mellitus with other specified complication; H54.7 Unspecified visual loss; Z88.8 Allergy status to other drugs, medicaments and biological substances; Z79.4 Long term (current) use of insulin; Z79.84 Long term (current) use of oral hypoglycemic drugs; E78.5 Hyperlipidemia, unspecified; I10 Essential (primary) hypertension; Z87.01 Personal history of pneumonia (recurrent); M10.9 Gout, unspecified; F32.9 Major depressive disorder, single episode, unspecified; F41.9 Anxiety disorder, unspecified; G43.909 Migraine, unspecified, not intractable, without status migrainosus; G47.30 Sleep apnea, unspecified; J32.9 Chronic sinusitis, unspecified; Z23 Encounter for immunization; Z79.82 Long term (current) use of aspirin; Z79.899 Other long term (current) drug therapy
CPT/HCPCS: 36415; 36600; 71045; 80053; 81003; 82553; 82803; 83036; 83735; 83880; 84443; 84484; 85025; 86140; 87804 ×2; 93005; 94640; 96361; 96374; 96375; 99285; J1170; J2405; J2930; J7040; 71046; 71046-26; 80048; 80061; 82947; 82962; 83605; 86738; 87486; 87581; 87633; 87798; 87899; 90662; 93010; 94760; 94761; 97110-GO; 97110-GP; 97116-GP; 97162-GP; 97165-GO; 97530-GP; A9270-GY; G0008; J0360; J0456; J1650; J1815-GY; J7030; J7050

== ENCOUNTER 2017-07-29 19:28 | Inpatient (IN) | payer MEDICARE, MEDICAID ==
[2017-07-29] MEDS ORDERED: Albuterol/Ipratropium 3.0-0.5 MG/3 ML Neb Soln NEB ONE (19:48)
--- NOTE | 2017-07-29 19:48 | EDM.PDOC ---
ED HPI GENERAL MEDICAL PROBLEM - General Chief Complaint: Respiratory Problem Stated Complaint: sob abdominal pain Time Seen by Provider: 07/29/17 19:47 Source of Information: Reports: Patient History Limitations: Reports: No Limitations - History of Present Illness INITIAL COMMENTS - FREE TEXT/NARRATIVE: 67-year-old female presents once again to the ED with increasing dyspnea audible wheezing. I've seen her 3 days ago with similar symptoms and after treatment she had improved plus she had normal lab values. He was felt she could benefit from treatment as an outpatient first with DuoNeb every 6 hours and oral steroid 20 mg of prednisone once a day for 10 days then once a day in the morning .She has a type II diabetic and blood sugars have been around 202- 35. It also increased her insulin( Tresiba) use from 45-55 units subcutaneously in the evening. Her hemoglobin A1c on last check was 9.3. She was influenza negative and RSV negative on last assessment 3 days ago. She reports intermittent low-grade fevers and chills with a normal urinalysis on last assessment. I therefore did place her on azithromycin 250 mg daily for 6 days. She was hypomagnesemic at 1.4 and a day plus on Slow-Mag one tablet twice daily. Unfortunately she has failed outpatient management. She is sleeping on 3 pillows not sleeping at a hardly at all because of dyspnea. She is on home oxygen usually 2 L at all times. She continues to wheeze and without the benefit of DuoNeb treatments helping much at home. She feels diffuse abdominal pain which is due to distention from air. She is able to eat still. Blood sugar earlier this morning was 239. Denies nausea vomiting or diarrhea. No fever or chills. Office occasionally productive but she doesn't know the color of the sputum. Onset: Other (Patient simply hasn't gotten better over the last 3 weeks. She has chronic end-stage COPD.) Onset Date: 07/03/17 Duration: Week(s):, Chronic, Getting Worse Location: Reports: Chest (Dyspnea with audible wheezing.) Quality: Reports: Ache Severity: Severe Improves with: Reports: Rest Worsens with: Reports: Other, Movement Context: Reports: Other ([place] of contracted a viral upper respiratory tract infection which is exacerbated her COPD. She's been negative for influenza and RSV on 3 occasions on check over the last 10 days.). Denies: Activity, Exercise , Sick Contact, Trauma Associated Symptoms: Reports: Cough, cough w sputum, Malaise, Shortness of Breath (Severe even at rest.), Other (Type 2 diabetes with poor control. Last blood sugars to 39 aggravated by current steroids orally.). 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) Headache Pain Score (Numeric/FACES): 8 Upper Epigastric Pain Score (Numeric/FACES): 4 - Related Data Allergies Allergy/AdvReac Type Severity Reaction Status Date / Time insulin detemir Allergy Mild Itching Verified 07/29/17 19:32 [From Levemir] doxycycline Allergy Swelling Verified 07/29/17 19:32 Home Meds: Home Meds Allopurinol [Zyloprim] 300 mg PO DAILY 04/18/15 [History] Aspirin [Sacha Chewable Aspirin] 81 mg PO DAILY 04/18/15 [History] Lisinopril 10 mg PO DAILY 04/18/15 [History] Lovastatin 10 mg PO BEDTIME 04/18/15 [History] metFORMIN [Glucophage] 1,000 mg PO BID 04/18/15 [History] Sertraline [Zoloft] 50 tab PO DAILY 08/26/15 [History] Insulin Degludec [Tresiba Flextouch U-200] 45 unit SQ BEDTIME 01/16/17 [History] glipiZIDE [Glipizide ER] 10 mg PO BID #60 01/23/17 [Rx] Albuterol/Ipratropium [DuoNeb 3.0-0.5 MG/3 ML] 3 ml NEB Q6H PRN 06/28/17 [ History] Meloxicam [Mobic] 15 mg PO DAILY 06/28/17 [History] Albuterol [IJD: Ventolin HFA] 2 puff INH .TWICE DAILY 10 Days #18 gm 07/02/17 [ Rx] Albuterol/Ipratropium [DuoNeb 3.0-0.5 MG/3 ML] 3 ml .XX QID #100 neb 07/25/17 [ Rx] Azithromycin [Zithromax] 250 mg PO Q24H #7 tab 07/25/17 [Rx] Magnesium Chloride [Slow-Mag] 71.5 mg PO DAILY #60 tablet. 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: Musculoskeletal History: Reports: Back Pain, Chronic, Gout, Other (See Below) Other Musculoskeletal History: Right knee pain Neurological History: Reports: Migraines, Neuropathy, Diabetic Psychiatric History: Reports: Anxiety, Depression Endocrine/Metabolic History: Reports: Diabetes, Type II Hematologic History: Reports: None Immunologic History: Reports: None Oncologic (Cancer) History: Reports: None Dermatologic History: Reports: None - Infectious Disease History Infectious Disease History: Reports: Measles, Mumps - Past Surgical History HEENT Surgical History: Reports: Eye Surgery, Other (See Below) Other HEENT Surgeries/Procedures: retinal detachment surgery x2. Cardiovascular Surgical History: Reports: None Respiratory Surgical History: Reports: None GI Surgical History: Reports: Appendectomy, Cholecystectomy Female Surgical History: Reports: Hysterectomy, Lithotripsy/ESWL Endocrine Surgical History: Reports: None Neurological Surgical History: Reports: None Musculoskeletal Surgical History: Reports: Arthroscopic Knee Oncologic Surgical History: Reports: None Dermatological Surgical History: Reports: None Social & Family History - Family History Family Medical History: Noncontributory - Tobacco Use Smoking Status *Q: Current Every Day Smoker Years of Tobacco use: 40 Packs/Tins Daily: 1 Used Tobacco, but Quit: Yes Month/Year Tobacco Last Used: December 2016 Second Hand Smoke Exposure: Yes - Caffeine Use Caffeine Use: Reports: None - Recreational Drug Use Recreational Drug Use: No - Living Situation & Occupation Living situation: Reports: Single Occupation: Retired ED ROS GENERAL - Review of Systems Review Of Systems: See Below Constitutional: Reports: Fever, Chills, Malaise, Weakness (She reports intermittent fever and chills. She is afebrile on initial assessment.), Fatigue , Decreased Appetite (Mildly decreased) HEENT: Reports: No Symptoms Respiratory: Reports: Shortness of Breath, Wheezing, Cough (Audible wheezing), Sputum. Denies: Hemoptysis Cardiovascular: Reports: Chest Pain (Occasional sputum production but she not sure what color.), Blood Pressure Problem ( Only from coughing), Dyspnea on Exertion (Trace edema both lower extremities), Edema. Denies: Claudication, Lightheadedness, Orthopnea ( hypertension ), Palpitations ( chronically) Endocrine: Reports: Fatigue, High Glucose (239 this morning currently being aggravated by prednisone 20 mg once daily every morning) GI/Abdominal: Reports: Abdominal Pain (Feels severely bloated and distended.), Constipation (Some mild constipation issues) : Reports: Incontinence (Mostly stress-induced) Musculoskeletal: Reports: Back Pain, Joint Pain (Knees hips and neck at times) Skin: Reports: No Symptoms Neurological: Reports: No Symptoms Psychiatric: Reports: No Symptoms ED EXAM, GENERAL - Physical Exam Exam: See Below Exam Limited By: No Limitations General Appearance: Alert, WD/WN, Moderate Distress (Probable wheezing evident. O2 sats 84--87% on room air this was obtained shortly after exertion walking into the hospital without any oxygen from home.) Eye Exam: Bilateral Eye: Normal Inspection Ears: Normal TMs Throat/Mouth: Normal Inspection (Serial oropharynx is mildly erythematous without exudate.), Normal Lips, Normal Voice, Other Head: Atraumatic, Normocephalic Neck: Normal Inspection, Non-Tender, Full Range of Motion. No: Carotid Bruit, Lymphadenopathy (L), Lymphadenopathy (R) Respiratory/Chest: No Accessory Muscle Use, Respiratory Distress (Marked tachypnea 28/m.), Decreased Breath Sounds (Decreased breath sounds posterior to the lower 50% of lung gama. This expiratory wheezes from all lung), Wheezing. No: Lungs Clear, Normal Breath Sounds, Rales, Rhonchi ( lobes but difficult here in the lower lobes.) Cardiovascular: Normal Peripheral Pulses, No Murmur, Tachycardia (Sting tachycardia of 1 18/m.). No: No Edema, No Gallop Peripheral Pulses: 2+: Posterior Tibial (L), Posterior Tibial (R), Dorsalis Pedis (L), Dorsalis Pedis (R) GI/Abdominal: Other ([place] is grossly distended and tympanic to percussion component aerophagia. Abdominal girth precludes ability to palpate any solid organs. No peritoneal signs identified.). No: Guarding, Rigid, Rebound, Tender Back Exam: Normal Inspection, Full Range of Motion. No: CVA Tenderness (L), CVA Tenderness (R) Extremities: Normal Inspection, Normal Range of Motion, Non-Tender, No Pedal Edema, Pedal Edema. No: Normal Capillary Refill, Joint Swelling Neurological: Alert (Trace edema 1+ left lower extremity versus the right.), Oriented, CN II-XII Intact, Normal Cognition. No: Normal Gait Psychiatric: Normal Affect, Normal Mood Skin Exam: Warm, Dry, Intact, Normal Color, No Rash, Other (Afebrile.) EKG INTERPRETATION EKG Date: 07/29/17 Time: 20:13 Rhythm: Other Rate (Beats/Min): 115 [place]: Normal P-Wave: Enlarged (Consider left atrial hypertrophy) QRS: Other (Decreased voltage precordial leads. Poor R-wave progression.) ST-T: Normal QT: Normal EKG Interpretation Comments: Abnormal ECG Course - Vital Signs Last Recorded V/S: Last Vital Signs Temp 36.6 C 07/29/17 19:30 Pulse 118 H 07/29/17 19:30 Resp 28 H 07/29/17 19:30 BP 142/71 H 07/29/17 19:30 Pulse Ox 92 L 07/29/17 19:54 - Orders/Labs/Meds Orders: Active Orders 24 hr Category Date Time Status Admission Status [Patient Status] [ADT] Routine ADT 07/29/17 20:49 Ordered EKG Documentation Completion [RC] STAT Care 07/29/17 19:49 Active Oxygen Therapy [RC] ASDIRECTED Care 07/29/17 19:48 Active RT Aerosol Therapy [RC] ASDIRECTED Care 07/29/17 19:48 Active Chest 1V Frontal [CR] Stat Exams 07/29/17 19:49 Ordered Sodium Chloride 0.9% [Normal Saline] 1,000 ml Med 07/29/17 20:00 Active IV ASDIRECTED Medication Orders Sodium Chloride (Normal Saline) 1,000 mls @ 125 mls/hr IV ASDIRECTED [facility] Last Admin: 07/29/17 19:57 Dose: 125 mls/hr Labs: Laboratory Tests 07/29/17 07/29/17 07/29/17 Range/Units 19:45 19:45 19:45 WBC 8.02 (3.98-10.04) K/mm3 RBC 4.01 (3.98-5.22) M/mm3 Hgb 11.0 L (11.2-15.7) gm/L Hct 35.0 (34.1-44.9) % MCV 87.3 (79.4-94.8) fl MCH 27.4 (25.6-32.2) pg MCHC 31.4 L (32.2-35.5) g/dl RDW Std Deviation 48.4 H (36.4-46.3) fL Plt Count 158 L (182-369) K/mm3 MPV 10.4 (9.4-12.3) fl Neutrophils % (Manual) 67 H (40-60) % Band Neutrophils % 0 (0-10) % Lymphocytes % (Manual) 30 (20-40) % Atypical Lymphs % 0 % Monocytes % (Manual) 0 L (2-10) % Eosinophils % (Manual) 3 (0.7-5.8) % Basophils % (Manual) 0 L (0.1-1.2) Platelet Estimate Adequate RBC Morph Comment Normal Sodium 145 (136-145) mEq/L Potassium 4.3 (3.5-5.1) mEq/L Chloride 107 (98-107) mEq/L Carbon Dioxide 25 (21-32) mEq/L Anion Gap 17.3 H (5-15) BUN 22 H (7-18) mg/dL Creatinine 1.0 (0.55-1.02) mg/dL Est Cr Clr Drug Dosing 47.14 mL/min Estimated GFR (MDRD) 55 (>60) mL/min BUN/Creatinine Ratio 22.0 H (14-18) Glucose 267 H (80-115) mg/dL Calcium 8.8 (8.5-10.1) mg/dL Magnesium (1.8-2.4) mg/dl Total Bilirubin 0.3 (0.2-1.0) mg/dL AST 33 (15-37) U/L ALT 44 (14-59) U/L Alkaline Phosphatase 70 (46-116) U/L Troponin I < 0.017 (0.00-0.056) ng/mL C-Reactive Protein 0.7 (<1.0) mg/dL NT-Pro-B Natriuret Pep 92 (0-125) pg/mL Total Protein 6.8 (6.4-8.2) g/dl Albumin 3.3 L (3.4-5.0) g/dl Globulin 3.5 gm/dL Albumin/Globulin Ratio 0.9 L (1-2) Urine Color (Yellow) Urine Appearance (Clear) Urine pH (5.0-8.0) Ur Specific [place] (1.005-1.030) Urine Protein (Negative) Urine Glucose (UA) (Negative) Urine Ketones (Negative) Urine Occult Blood (Negative) Urine Nitrite (Negative) Urine Bilirubin (Negative) Urine Urobilinogen (0.2-1.0) Ur Leukocyte Esterase (Negative) Urine RBC (0-5) /hpf Urine WBC (0-5) /hpf Ur Epithelial Cells (0-5) /hpf Urine Bacteria (FEW) /hpf Urine Mucus (FEW) /hpf 07/29/17 07/29/17 Range/Units 19:45 20:20 WBC (3.98-10.04) K/mm3 RBC (3.98-5.22) M/mm3 Hgb (11.2-15.7) gm/L Hct (34.1-44.9) % MCV (79.4-94.8) fl MCH (25.6-32.2) pg MCHC (32.2-35.5) g/dl RDW Std Deviation (36.4-46.3) fL Plt Count (182-369) K/mm3 MPV (9.4-12.3) fl Neutrophils % (Manual) (40-60) % Band Neutrophils % (0-10) % Lymphocytes % (Manual) (20-40) % Atypical Lymphs % % Monocytes % (Manual) (2-10) % Eosinophils % (Manual) (0.7-5.8) % Basophils % (Manual) (0.1-1.2) Platelet Estimate RBC Morph Comment Sodium (136-145) mEq/L Potassium (3.5-5.1) mEq/L Chloride (98-107) mEq/L Carbon Dioxide (21-32) mEq/L Anion Gap (5-15) BUN (7-18) mg/dL Creatinine (0.55-1.02) mg/dL Est Cr Clr Drug Dosing mL/min Estimated GFR (MDRD) (>60) mL/min BUN/Creatinine Ratio (14-18) Glucose (80-115) mg/dL Calcium (8.5-10.1) mg/dL Magnesium 1.7 L (1.8-2.4) mg/dl Total Bilirubin (0.2-1.0) mg/dL AST (15-37) U/L ALT (14-59) U/L Alkaline Phosphatase (46-116) U/L Troponin I (0.00-0.056) ng/mL C-Reactive Protein (<1.0) mg/dL NT-Pro-B Natriuret Pep (0-125) pg/mL Total Protein (6.4-8.2) g/dl Albumin (3.4-5.0) g/dl Globulin gm/dL Albumin/Globulin Ratio (1-2) Urine Color Yellow (Yellow) Urine Appearance Clear (Clear) Urine pH 6.0 (5.0-8.0) Ur Specific [place] 1.025 (1.005-1.030) Urine Protein 1+ H (Negative) Urine Glucose (UA) Trace H (Negative) Urine Ketones Negative (Negative) Urine Occult Blood Negative (Negative) Urine Nitrite Negative (Negative) Urine Bilirubin Negative (Negative) Urine Urobilinogen 0.2 (0.2-1.0) Ur Leukocyte Esterase Negative (Negative) Urine RBC 0-5 (0-5) /hpf Urine WBC 0-5 (0-5) /hpf Ur Epithelial Cells 5-10 H (0-5) /hpf Urine Bacteria Few (FEW) /hpf Urine Mucus Moderate H (FEW) /hpf Meds: Medications Generic Name Dose Route Start Last Admin Trade Name Freq PRN Reason Stop Dose Admin Sodium Chloride 1,000 mls @ 125 mls/hr 07/29/17 20:00 07/29/17 19:57 Normal Saline IV 125 mls/hr ASDIRECTED [place] Administration Discontinued Medications Generic Name Dose Route Start Last Admin Trade Name Freq PRN Reason Stop Dose Admin Albuterol/Ipratropium 3 ml 07/29/17 19:48 07/29/17 19:54 Duoneb 3.0-0.5 Mg/3 Ml NEB 07/29/17 19:49 3 ml ONETIME ONE Administration Methylprednisolone Sodium Succinate 125 mg 07/29/17 20:00 07/29/17 20:05 Solu-Medrol IVPUSH 07/29/17 20:01 125 mg ONETIME ONE Administration - Radiology Interpretation Free Text/Narrative:: 67-year-old female with severe COPD returns to the ED due to failure to improve an outpatient treatment with 4 times daily DuoNeb and is on 20 mg once daily every morning Zithromax 250 mg daily. She is afebrile initially but complains of intermittent fever and chills. Complete workup was carried out 3 days ago which time she was negative for RSV and influenza screen prior to that she was also screened and was found to be negative. She's not bringing up much the way of sputum. She has audible wheezing and hypoxia rest. On room air she was 84-87% . On 2 L she is around 93%. Decreased air into the lower 50% of lung gama bilaterally. To my knowledge patient continues to have 45 cigarettes at home daily. Unclear whether she's been compliant with treatment plan. Diabetic reports her last sugar was 239. I increased her insulin --Tresiba from 45 to 55 units od at bedtime as her hemoglobin A1c was 9.3. Steroids are going to aggravate this of course. Her current illness appears to be viral with an exacerbation of COPD for which she just can't seem to recover. She will require admission to the hospital since she has failed outpatient management. Routine labs to be collected patient refused to have another ABG. For that I had done in the past had revealed a normal pH but PCO2 was around 44.7. She has never required more than 3 L of oxygen however. I therefore canceled the order. Plan treated with DuoNeb immediately. IV will be normal saline 125 mils per hour. Will given dose of segmental 125 mg IV. One view chest x-ray to be done. Everything identified where she was low on her magnesium level I.4 and therefore start her on Slow-Mag twice daily as an outpatient. - Re-Assessments/Exams Free Text/Narrative Re-Assessment/Exam: 07/29/17 20:31 chest x-ray done portably suggests moderate cardiomegaly. There is perhaps slight worsening of vascular congestion on this portable film is compared to the last. A BNP will be ordered although it's never been very high. Discussed case with Dr. and not a as the patient does meet inpatient criteria. 07/29/17 20:36 Labs reveal a normal white count at 8.02. 67% neutrophils no bands reported. Hemoglobin slightly low 11.0 with hematocrit of 35.0. Platelet count normal 158,000. Sodium is 145 with a potassium of 4.3. Chloride 107 with a bicarbonate of 25. Anion gap is mildly elevated at 17.3 indicating she has not taking fluids adequately or is becoming more volume depleted due to uncontrolled diabetes. BUN is 22 with a creatinine of 1.0. Estimated GFR is 55. Glucose was 267 at this time. Calcium is 8.8. Magnesium is improved to 1.7. Bilirubin 0.3. AST was 33 ALT is 44. Troponin I is less than 0.017. C-reactive protein is 0.7. Abdomen fraction slightly low at 3.3. Urinalysis is essentially normal saline no signs of infection. 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 Bob customs consultant hospitalist and he has agreed to admission to the med surgery floor on telemetry Departure - Departure Time of Disposition: 20:57 Disposition: Admitted As Inpatient 66 Condition: Poor Clinical Impression: Acute exacerbation of chronic obstructive pulmonary disease (COPD), Tobacco use disorder, Hypomagnesemia, Morbid obesity with BMI of 40.0-44.9, adult Type 2 diabetes mellitus Qualifiers: Diabetes mellitus [facility] insulin use: with [facility] use Diabetes mellitus complication status: with other specified complication Qualified Code(s): E11.69 - Type 2 diabetes mellitus with other specified complication Diabetes type 2, uncontrolled Qualifiers: Diabetes mellitus [facility] insulin use: with [facility] use Diabetes mellitus complication status: without complication Qualified Code(s): E11.65 - Type 2 diabetes mellitus with hyperglycemia - Discharge Information Referrals: Lisandra Mazariegos PA-C [Primary Care Provider] - Forms: ED Department Discharge - My Orders Last 24 Hours: My Active Orders 07/29/17 19:48 Oxygen Therapy [RC] ASDIRECTED RT Aerosol Therapy [RC] ASDIRECTED 07/29/17 19:49 EKG Documentation Completion [RC] STAT Chest 1V Frontal [CR] Stat 07/29/17 20:00 Sodium Chloride 0.9% [Normal Saline] 1,000 ml IV ASDIRECTED 07/29/17 20:49 Admission Status [Patient Status] [ADT] Routine - Assessment/Plan Last 24 Hours: My Active Orders 07/29/17 19:48 Oxygen Therapy [RC] ASDIRECTED RT Aerosol Therapy [RC] ASDIRECTED 07/29/17 19:49 EKG Documentation Completion [RC] STAT Chest 1V Frontal [CR] Stat 07/29/17 20:00 Sodium Chloride 0.9% [Normal Saline] 1,000 ml IV ASDIRECTED 07/29/17 20:49 Admission Status [Patient Status] [ADT] Routine
[2017-07-29] MEDS: Sodium Chloride 0.9% 1,000 ML IV SCH (19:57)
[2017-07-29] MEDS ORDERED: methylPREDNISolone Sodium Succinate 125 MG/2 ML SDV IVPUSH ONE (20:00)
[2017-07-29] MEDS ORDERED: Metoprolol Tartrate 5 MG/5 ML SDV IVPUSH PRN (20:43)
[2017-07-29] MEDS ORDERED: oxyCODONE 5 MG Tab PO PRN (20:44)
[2017-07-29] MEDS ORDERED: Docusate Sodium 100 MG Cap PO PRN (20:50)
[2017-07-29] MEDS ORDERED: Bisacodyl 5 MG Tab PO PRN (20:50)
[2017-07-29] MEDS ORDERED: Polyethylene Glycol 3350 Powder 17 GM Packet PO PRN (20:50)
[2017-07-29] MEDS ORDERED: Insulin Detemir 100 Units/ML 3 ML Pen SUBCUT SCH (21:00)
--- NOTE | 2017-07-29 21:01 | PCM.HP ---
H&P History of Present Illness - General Date of Service: 07/29/17 Admit Problem/Dx: Admission Diagnosis/Problem Admission Diagnosis/Problem COPD, Severe chronic obstructive pulmonary disease Source of Information: Patient, Old Records, Provider, RN Notes Reviewed History Limitations: Reports: Respiratory Distress - History of Present Illness Initial Comments - Free Text/Narative: This is a 67 yo white female with oast medical hx/o Impaired Vision/Renal Detachment, Gout, Asthma, OA, DM2, Migraines DAVALOS, Anxiety, Depression, Former smoker; quit back in Sep, and Obesity with BMI of 44.6 who comes in for worsening shortness of breath with dyspnea. She was recently seen in ED for similar presentation and was discharged from this hospital back in for treatment of COPD exacerbation. Her initial work up shows a CBC remarkable for hemoglobin of 11, MCHC of 31.4, RDW of 48.4, platelet count of 158, and neutrophils of 67%. Her chemistry is remarkable for an anion gap of 17.3, BUN of 22, glucose of 267, magnesium 1.7 and albumin of 3.3. Her UA is not impressive for urinary tract infection. Her CRX shows no acute abnormal findings. She is being admitted for medical management of COPD exacerbation. She is full code. Headache Pain Score (Numeric/FACES): 8 Upper Epigastric Pain Score (Numeric/FACES): 4 - Related Data Allergies/Adverse Reactions: Allergies Allergy/AdvReac Type Severity Reaction Status Date / Time insulin detemir Allergy Mild Itching Verified 07/30/17 00:33 [From Levemir] doxycycline Allergy Swelling Verified 07/30/17 00:33 Home Medications: Home Meds Allopurinol [Zyloprim] 300 mg PO DAILY 04/18/15 [History] Aspirin [Sacha Chewable Aspirin] 81 mg PO DAILY 04/18/15 [History] Lisinopril 10 mg PO DAILY 04/18/15 [History] Lovastatin 10 mg PO BEDTIME 04/18/15 [History] metFORMIN [Glucophage] 1,000 mg PO BID 04/18/15 [History] Sertraline [Zoloft] 50 tab PO DAILY 08/26/15 [History] Insulin Degludec [Tresiba Flextouch U-200] 55 unit SQ BEDTIME 01/16/17 [History] glipiZIDE [Glipizide ER] 10 mg PO BID #60 01/23/17 [Rx] Albuterol/Ipratropium [DuoNeb 3.0-0.5 MG/3 ML] 3 ml NEB Q6H PRN 06/28/17 [ History] Meloxicam [Mobic] 15 mg PO DAILY 06/28/17 [History] Albuterol [IJD: Ventolin HFA] 2 puff INH .TWICE DAILY 10 Days #18 gm 07/02/17 [ Rx] Albuterol/Ipratropium [DuoNeb 3.0-0.5 MG/3 ML] 3 ml .XX QID #100 neb 07/25/17 [ Rx] Azithromycin [Zithromax] 250 mg PO Q24H #7 tab 07/25/17 [Rx] Magnesium Chloride [Slow-Mag] 71.5 mg PO DAILY #60 tablet. 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: Musculoskeletal History: Reports: Back Pain, Chronic, Gout, Other (See Below) Other Musculoskeletal History: Right knee pain Neurological History: Reports: Migraines, Neuropathy, Diabetic Psychiatric History: Reports: Anxiety, Depression Endocrine/Metabolic History: Reports: Diabetes, Type II Hematologic History: Reports: None Immunologic History: Reports: None Oncologic (Cancer) History: Reports: None Dermatologic History: Reports: None - Infectious Disease History Infectious Disease History: Reports: Measles, Mumps - Past Surgical History HEENT Surgical History: Reports: Eye Surgery, Other (See Below) Other HEENT Surgeries/Procedures: retinal detachment surgery x2. Cardiovascular Surgical History: Reports: None Respiratory Surgical History: Reports: None GI Surgical History: Reports: Appendectomy, Cholecystectomy Female Surgical History: Reports: Hysterectomy, Lithotripsy/ESWL Endocrine Surgical History: Reports: None Neurological Surgical History: Reports: None Musculoskeletal Surgical History: Reports: Arthroscopic Knee Oncologic Surgical History: Reports: None Dermatological Surgical History: Reports: None Social & Family History - Family History Family Medical History: Noncontributory - Tobacco Use Smoking Status *Q: Current Every Day Smoker Years of Tobacco use: 40 Packs/Tins Daily: 1 Used Tobacco, but Quit: Yes Month/Year Tobacco Last Used: December 2016 Second Hand Smoke Exposure: Yes - Caffeine Use Caffeine Use: Reports: None - Recreational Drug Use Recreational Drug Use: No - Living Situation & Occupation Living situation: Reports: Single Occupation: Retired H&P Review of Systems - Review of Systems: Review Of Systems: See Below General: Reports: Fever, Chills, Malaise, Weakness, Fatigue, Decreased Appetite HEENT: Reports: No Symptoms Pulmonary: Reports: Shortness of Breath, Wheezing, Cough, Sputum Cardiovascular: Reports: Chest Pain, Dyspnea on Exertion, Edema, Blood Pressure Problem. Denies: Palpitations, Orthopnea, Lightheadedness, Syncope, Claudication Gastrointestinal: Reports: Other (feels bloated and distended). Denies: Abdominal Pain, Decreased Appetite, Nausea, Vomiting Genitourinary: Reports: No Symptoms Musculoskeletal: Reports: Back Pain, Joint Pain Skin: Denies: Cyanosis, Mottled, Pallor, Diaphoresis, Bruising Psychiatric: Denies: Confusion, Depression, Anxiety, Cravings Neurological: Denies: Confusion, Difficulty Walking, Weakness, Gait Disturbance Hematologic/Lymphatic: Reports: No Symptoms Immunologic: Reports: No Symptoms Exam - Exam Exam: See Below - Vital Signs Vital Signs: Last Vital Signs Temp 36.6 C 07/29/17 19:30 Pulse 118 H 07/29/17 19:30 Resp 28 H 07/29/17 19:30 BP 142/71 H 07/29/17 19:30 Pulse Ox 92 L 07/29/17 19:54 Weight: 117.934 kg - Exam Quality Assessment: Supplemental Oxygen General: Alert, Oriented, Cooperative, Mild Distress HEENT: Conjunctiva Clear, EACs Clear, EOMI, Hearing Intact, Mucosa Moist & [place] , Nares Patent, Normal Nasal Septum, Posterior Pharynx Clear, Pupils Equal, Pupils Reactive Neck: Supple, Trachea Midline, +2 Carotid Pulse wo Bruit, Other (No accessory muscle use) Lungs: Decreased Breath Sounds, Wheezing Cardiovascular: Tachycardia GI/Abdominal Exam: Normal Bowel Sounds, Soft, Non-Tender, No Organomegaly, No Distention, No Abnormal Bruit, Other (Obese) (Female) Exam: Deferred Rectal (Female) Exam: Deferred Back Exam: Normal Inspection - Patient Data Lab Results Last 24 hrs: Laboratory Results - last 24 hr 07/29/17 07/29/17 07/29/17 Range/Units 19:45 19:45 19:45 WBC 8.02 (3.98-10.04) K/mm3 RBC 4.01 (3.98-5.22) M/mm3 Hgb 11.0 L (11.2-15.7) gm/L Hct 35.0 (34.1-44.9) % MCV 87.3 (79.4-94.8) fl MCH 27.4 (25.6-32.2) pg MCHC 31.4 L (32.2-35.5) g/dl RDW Std Deviation 48.4 H (36.4-46.3) fL Plt Count 158 L (182-369) K/mm3 MPV 10.4 (9.4-12.3) fl Neutrophils % (Manual) 67 H (40-60) % Band Neutrophils % 0 (0-10) % Lymphocytes % (Manual) 30 (20-40) % Atypical Lymphs % 0 % Monocytes % (Manual) 0 L (2-10) % Eosinophils % (Manual) 3 (0.7-5.8) % Basophils % (Manual) 0 L (0.1-1.2) Platelet Estimate Adequate RBC Morph Comment Normal Sodium 145 (136-145) mEq/L Potassium 4.3 (3.5-5.1) mEq/L Chloride 107 (98-107) mEq/L Carbon Dioxide 25 (21-32) mEq/L Anion Gap 17.3 H (5-15) BUN 22 H (7-18) mg/dL Creatinine 1.0 (0.55-1.02) mg/dL Est Cr Clr Drug Dosing 47.14 mL/min Estimated GFR (MDRD) 55 (>60) mL/min BUN/Creatinine Ratio 22.0 H (14-18) Glucose 267 H (80-115) mg/dL Calcium 8.8 (8.5-10.1) mg/dL Magnesium (1.8-2.4) mg/dl Total Bilirubin 0.3 (0.2-1.0) mg/dL AST 33 (15-37) U/L ALT 44 (14-59) U/L Alkaline Phosphatase 70 (46-116) U/L Troponin I < 0.017 (0.00-0.056) ng/mL C-Reactive Protein 0.7 (<1.0) mg/dL NT-Pro-B Natriuret Pep 92 (0-125) pg/mL Total Protein 6.8 (6.4-8.2) g/dl Albumin 3.3 L (3.4-5.0) g/dl Globulin 3.5 gm/dL Albumin/Globulin Ratio 0.9 L (1-2) Urine Color (Yellow) Urine Appearance (Clear) Urine pH (5.0-8.0) Ur Specific [place] (1.005-1.030) Urine Protein (Negative) Urine Glucose (UA) (Negative) Urine Ketones (Negative) Urine Occult Blood (Negative) Urine Nitrite (Negative) Urine Bilirubin (Negative) Urine Urobilinogen (0.2-1.0) Ur Leukocyte Esterase (Negative) Urine RBC (0-5) /hpf Urine WBC (0-5) /hpf Ur Epithelial Cells (0-5) /hpf Urine Bacteria (FEW) /hpf Urine Mucus (FEW) /hpf 07/29/17 07/29/17 Range/Units 19:45 20:20 WBC (3.98-10.04) K/mm3 RBC (3.98-5.22) M/mm3 Hgb (11.2-15.7) gm/L Hct (34.1-44.9) % MCV (79.4-94.8) fl MCH (25.6-32.2) pg MCHC (32.2-35.5) g/dl RDW Std Deviation (36.4-46.3) fL Plt Count (182-369) K/mm3 MPV (9.4-12.3) fl Neutrophils % (Manual) (40-60) % Band Neutrophils % (0-10) % Lymphocytes % (Manual) (20-40) % Atypical Lymphs % % Monocytes % (Manual) (2-10) % Eosinophils % (Manual) (0.7-5.8) % Basophils % (Manual) (0.1-1.2) Platelet Estimate RBC Morph Comment Sodium (136-145) mEq/L Potassium (3.5-5.1) mEq/L Chloride (98-107) mEq/L Carbon Dioxide (21-32) mEq/L Anion Gap (5-15) BUN (7-18) mg/dL Creatinine (0.55-1.02) mg/dL Est Cr Clr Drug Dosing mL/min Estimated GFR (MDRD) (>60) mL/min BUN/Creatinine Ratio (14-18) Glucose (80-115) mg/dL Calcium (8.5-10.1) mg/dL Magnesium 1.7 L (1.8-2.4) mg/dl Total Bilirubin (0.2-1.0) mg/dL AST (15-37) U/L ALT (14-59) U/L Alkaline Phosphatase (46-116) U/L Troponin I (0.00-0.056) ng/mL C-Reactive Protein (<1.0) mg/dL NT-Pro-B Natriuret Pep (0-125) pg/mL Total Protein (6.4-8.2) g/dl Albumin (3.4-5.0) g/dl Globulin gm/dL Albumin/Globulin Ratio (1-2) Urine Color Yellow (Yellow) Urine Appearance Clear (Clear) Urine pH 6.0 (5.0-8.0) Ur Specific [place] 1.025 (1.005-1.030) Urine Protein 1+ H (Negative) Urine Glucose (UA) Trace H (Negative) Urine Ketones Negative (Negative) Urine Occult Blood Negative (Negative) Urine Nitrite Negative (Negative) Urine Bilirubin Negative (Negative) Urine Urobilinogen 0.2 (0.2-1.0) Ur Leukocyte Esterase Negative (Negative) Urine RBC 0-5 (0-5) /hpf Urine WBC 0-5 (0-5) /hpf Ur Epithelial Cells 5-10 H (0-5) /hpf Urine Bacteria Few (FEW) /hpf Urine Mucus Moderate H (FEW) /hpf Result Diagrams: 07/30/17 05:45 07/30/17 05:45 Problem List Initiated/Reviewed/Updated: Yes Orders Last 24hrs: Active Orders 24 hr Category Date Time Status Admission Status [Patient Status] [ADT] Routine ADT 07/29/17 20:49 Active EKG Documentation Completion [RC] STAT Care 07/29/17 19:49 Active Oxygen Therapy [RC] ASDIRECTED Care 07/29/17 19:48 Active Oxygen Therapy [RC] PRN Care 07/29/17 20:45 Ordered RT Aerosol Therapy [RC] ASDIRECTED Care 07/29/17 19:48 Active Up With Assistance [RC] ASDIRECTED Care 07/29/17 20:44 Ordered Up ad [place] [RC] ASDIRECTED Care 07/29/17 20:44 Ordered VTE/DVT Education [RC] PER UNIT ROUTINE Care 07/29/17 20:45 Ordered Vital Signs [RC] Q4H Care 07/29/17 20:45 Ordered Consult to Case Management [CONS] Routine Cons 07/29/17 20:56 Ordered Consult to Progress Clerk [CONS] Routine Cons 07/29/17 20:56 Ordered Consult to Commercial Credit Officer [CONS] Routine Cons 07/29/17 20:56 Ordered OT Evaluation and Treatment [CONS] Routine Cons 07/29/17 20:56 Ordered PT Evaluation and Treatment [CONS] Routine Cons 07/29/17 20:56 Ordered Respiratory Care Assess and Treatment [CONS] Routine Cons 07/29/17 20:56 Ordered Consistent Carbohydrate Diet [DIET] Diet 07/29/17 Dinner Ordered Heart Healthy Diet [DIET] Diet 07/29/17 Dinner Ordered Chest 1V Frontal [CR] Stat Exams 07/29/17 19:49 Ordered BASIC METABOLIC PANEL,BMP [CHEM] AM Lab 07/30/17 05:11 Ordered BASIC METABOLIC PANEL,BMP [CHEM] AM Lab 07/31/17 05:11 Ordered BASIC METABOLIC PANEL,BMP [CHEM] AM Lab 08/01/17 05:11 Ordered BASIC METABOLIC PANEL,BMP [CHEM] AM Lab 08/02/17 05:11 Ordered BASIC METABOLIC PANEL,BMP [CHEM] AM Lab 08/03/17 05:11 Ordered C-REACTIVE PROTEIN [CHEM] AM Lab 07/30/17 05:11 Ordered C-REACTIVE PROTEIN [CHEM] AM Lab 07/31/17 05:11 Ordered C-REACTIVE PROTEIN [CHEM] AM Lab 08/01/17 05:11 Ordered C-REACTIVE PROTEIN [CHEM] AM Lab 08/02/17 05:11 Ordered C-REACTIVE PROTEIN [CHEM] AM Lab 08/03/17 05:11 Ordered CBC WITH AUTO DIFF [HEME] AM Lab 07/30/17 05:11 Ordered CBC WITH AUTO DIFF [HEME] AM Lab 07/31/17 05:11 Ordered CBC WITH AUTO DIFF [HEME] AM Lab 08/01/17 05:11 Ordered CBC WITH AUTO DIFF [HEME] AM Lab 08/02/17 05:11 Ordered CBC WITH AUTO DIFF [HEME] AM Lab 08/03/17 05:11 Ordered CULTURE SPUTUM + SMEAR [RM] Stat Lab 07/29/17 20:56 Ordered MAGNESIUM [CHEM] AM Lab 07/30/17 05:11 Ordered MAGNESIUM [CHEM] AM Lab 07/31/17 05:11 Ordered MAGNESIUM [CHEM] AM Lab 08/01/17 05:11 Ordered MAGNESIUM [CHEM] AM Lab 08/02/17 05:11 Ordered MAGNESIUM [CHEM] AM Lab 08/03/17 05:11 Ordered Acetaminophen [Tylenol] Med 07/29/17 20:44 Ordered 650 mg PO Q4H PRN Albuterol/Ipratropium [DuoNeb 3.0-0.5 MG/3 ML] Med 07/29/17 21:00 Ordered 3 ml .XX QID Albuterol/Ipratropium [DuoNeb 3.0-0.5 MG/3 ML] Med 07/29/17 20:39 Ordered 3 ml NEB Q6H PRN Allopurinol [Zyloprim] Med 07/30/17 09:00 Ordered 300 mg PO DAILY Aspirin Med 07/30/17 09:00 Ordered 81 mg PO DAILY Bisacodyl [Dulcolax] Med 07/29/17 20:50 Ordered 5 mg PO DAILY PRN Docusate Sodium [Colace] Med 07/29/17 20:50 Ordered 100 mg PO BID PRN Docusate Sodium/Sennosides [Senna Plus] Med 07/29/17 20:50 Ordered 1 tab PO BID PRN Enoxaparin [Lovenox] Med 07/30/17 09:00 Ordered 40 mg SUBCUT DAILY Insulin Aspart [NovoLOG] Med 07/29/17 22:00 Ordered See Protocol SUBCUT QIDACANDBED Insulin Degludec [Tresiba Flextouch U-200] Med 07/29/17 21:00 Ordered 45 unit SQ BEDTIME Magnesium Chloride [Slow-Mag] Med 07/30/17 09:00 Ordered 71.5 mg PO DAILY Magnesium Rep Pharmacy to Dose [Pharmacy to Dose - Med 07/29/17 20:45 Ordered Magnesium Replacement] 1 dose .XX ASDIRECTED Metoprolol Tartrate [Lopressor] Med 07/29/17 20:43 Ordered 5 mg IVPUSH Q4H PRN Morphine Med 07/29/17 20:44 Ordered 2 mg IVPUSH Q4H PRN Polyethylene Glycol 3350 [MiraLAX] Med 07/29/17 20:50 Ordered 17 gm PO DAILY PRN Potassium Rep Pharmacy to Dose [Pharmacy to Dose - Med 07/29/17 20:45 Ordered Potassium Replacement] 1 dose .XX ASDIRECTED Sertraline [Zoloft] Med 07/30/17 09:00 Ordered 50 tab PO DAILY Sodium Chloride 0.9% [Normal Saline] 1,000 ml Med 07/29/17 20:00 Active IV ASDIRECTED Temazepam [Restoril] Med 07/29/17 20:50 Ordered 15 mg PO BEDTIME PRN glipiZIDE Med 07/29/17 21:00 Ordered 10 mg PO BID oxyCODONE Med 07/29/17 20:44 Ordered 5 mg PO Q4H PRN Resuscitation Status Routine Resus Stat 07/29/17 20:44 Ordered Medication Orders Sodium Chloride (Normal Saline) 1,000 mls @ 125 mls/hr IV ASDIRECTED [facility] Last Admin: 07/29/17 19:57 Dose: 125 mls/hr Assessment/Plan Comment:: Assessment/Plan: Acute: COPD Exacerbation with Multiple ED visits - Advanced Stage; Cannot r/o cardiac in etiology (2D echo in AM) - She recently discharge [facility] 06/30/2014 here for the same complaints - Her last ED visit was on 07/25/2017 - She quit smoking back in December - IV Azithromycin, IV Magnesium, bronchodilators, Continue oral steroid - IVP PRN Morphine for Dyspnea/Severe SOB - Consider IV Aminophylline if no response to initial treatment - She was advised to see a specialist but never got around to it Hypomagnesemia - 2/2 inadequate intake and respiratory issues - Replete and monitor DM - BS not well controlled due to recent steroid use - Resume Tresiba (intolerant to levemir) - Accu-check QID AC and HS and ISS - ADA diet Morbid Obesity with BMI 55.9 - Dietary consult for weight management Probable GERRADO - Recommend sleep study after discharge - This is likely contributory to her dyspnea - 2D echo in AM for baseline Possible Medical Non-compliance Chronic: Impaired Vision/Renal Detachment Gout Asthma OA DM2 Migraines DAVALOS Anxiety Depression Former smoker; quit back in Sep Obesity with BMI of 44.6 Plan: Admit to Med-Surg Routine AM Labs Resume Most home meds RT/PT/OT consult SW/CM for d/c planning Additional orders as above Code status: 1
[2017-07-29] MEDS ORDERED: WATER IV ONE ×2 (21:07)
[2017-07-29] MEDS ORDERED: DEXTROSE 5% IV ONE ×2 (21:07)
[2017-07-29] MEDS ORDERED: AMINOPHYLLINE IV ONE ×2 (21:07)
[2017-07-29] MEDS ORDERED: 50% Dextrose in Water 50 ML Syringe IVPUSH PRN (21:13)
[2017-07-29] MEDS ORDERED: Azithromycin 500 MG in Sodium Chloride 0.9% 250 ML IV ONE ×3 (21:45→22:45)
[2017-07-29] MEDS: Albuterol/Ipratropium 3.0-0.5 MG/3 ML Neb Soln SCH (21:48)
[2017-07-29] MEDS: Temazepam 15 MG Cap PO PRN (22:51)
[2017-07-29] MEDS: glipiZIDE 5 MG Tab.ER PO SCH (22:54)
[2017-07-29] MEDS: Insulin Aspart 100 Units/ML 3 ML Pen SUBCUT SCH (23:15)
[2017-07-30] MEDS: Morphine 2 MG/ML Syringe IVPUSH PRN ×3 (01:56→18:33)
[2017-07-30] MEDS ORDERED: Albuterol/Ipratropium 3.0-0.5 MG/3 ML Neb Soln NEB PRN (02:00)
[2017-07-30] MEDS: Sodium Chloride 0.9% 1,000 ML IV SCH (03:20)
[2017-07-30] MEDS: Albuterol/Ipratropium 3.0-0.5 MG/3 ML Neb Soln SCH ×4 (06:19→20:20)
[2017-07-30] MEDS: Acetaminophen 325 MG Tab PO PRN (06:54)
[2017-07-30] MEDS ORDERED: predniSONE 20 MG Tab PO SCH (07:00)
[2017-07-30] MEDS ORDERED: Azithromycin 500 MG AdvVial IV SCH (07:00)
--- NOTE | 2017-07-30 07:00 | PCM.PN ---
- General Info Date of Service: 07/30/17 Admission Dx/Problem (Free Text): Admission Diagnosis/Problem Admission Diagnosis/Problem COPD, Severe chronic obstructive pulmonary disease Subjective Update: Follow Up Functional Status: Reports: Pain Controlled, Tolerating Diet, Urinating - Review of Systems General: Reports: Fatigue. Denies: Fever, Weakness, Malaise, Chills HEENT: Reports: No Symptoms Pulmonary: Reports: Shortness of Breath, Cough. Denies: Sputum Cardiovascular: Reports: Dyspnea on Exertion. Denies: Chest Pain, Palpitations , Lightheadedness Gastrointestinal: Denies: Abdominal Pain, Nausea, Vomiting Genitourinary: Reports: No Symptoms Musculoskeletal: Reports: No Symptoms Skin: Denies: Cyanosis, Jaundice Neurological: Denies: Confusion, Difficulty Walking, Weakness, Gait Disturbance Psychiatric: Denies: Depression, Anxiety, Agitation, Hallucinations Systems Review Comment:: Slept good last night but still feels about the same. She has no other issues. She ambulated minimally this am due to dyspnea. - Patient Data Vitals - Most Recent: Last Vital Signs Temp 36.8 C 07/29/17 21:26 Pulse 100 07/29/17 21:26 Resp 28 H 07/29/17 21:26 BP 138/66 07/29/17 21:26 Pulse Ox 96 07/30/17 06:19 Weight - Most Recent: 118.252 kg I&O - Last 24 Hours: Intake & Output 07/29/17 07/30/17 07/30/17 22:59 06:59 14:59 Intake Total 2058 Output Total 750 Balance 1308 Lab Results Last 24 Hours: Laboratory Results - last 24 hr 07/29/17 07/29/17 07/29/17 Range/Units 19:45 19:45 19:45 WBC 8.02 (3.98-10.04) K/mm3 RBC 4.01 (3.98-5.22) M/mm3 Hgb 11.0 L (11.2-15.7) gm/L Hct 35.0 (34.1-44.9) % MCV 87.3 (79.4-94.8) fl MCH 27.4 (25.6-32.2) pg MCHC 31.4 L (32.2-35.5) g/dl RDW Std Deviation 48.4 H (36.4-46.3) fL Plt Count 158 L (182-369) K/mm3 MPV 10.4 (9.4-12.3) fl Neutrophils % (Manual) 67 H (40-60) % Band Neutrophils % 0 (0-10) % Lymphocytes % (Manual) 30 (20-40) % Atypical Lymphs % 0 % Monocytes % (Manual) 0 L (2-10) % Eosinophils % (Manual) 3 (0.7-5.8) % Basophils % (Manual) 0 L (0.1-1.2) Platelet Estimate Adequate RBC Morph Comment Normal Sodium 145 (136-145) mEq/L Potassium 4.3 (3.5-5.1) mEq/L Chloride 107 (98-107) mEq/L Carbon Dioxide 25 (21-32) mEq/L Anion Gap 17.3 H (5-15) BUN 22 H (7-18) mg/dL Creatinine 1.0 (0.55-1.02) mg/dL Est Cr Clr Drug Dosing 47.14 mL/min Estimated GFR (MDRD) 55 (>60) mL/min BUN/Creatinine Ratio 22.0 H (14-18) Glucose 267 H (80-115) mg/dL POC Glucose (80-115) mg/dL Calcium 8.8 (8.5-10.1) mg/dL Magnesium (1.8-2.4) mg/dl Total Bilirubin 0.3 (0.2-1.0) mg/dL AST 33 (15-37) U/L ALT 44 (14-59) U/L Alkaline Phosphatase 70 (46-116) U/L Troponin I < 0.017 (0.00-0.056) ng/mL C-Reactive Protein 0.7 (<1.0) mg/dL NT-Pro-B Natriuret Pep 92 (0-125) pg/mL Total Protein 6.8 (6.4-8.2) g/dl Albumin 3.3 L (3.4-5.0) g/dl Globulin 3.5 gm/dL Albumin/Globulin Ratio 0.9 L (1-2) Urine Color (Yellow) Urine Appearance (Clear) Urine pH (5.0-8.0) Ur Specific [place] (1.005-1.030) Urine Protein (Negative) Urine Glucose (UA) (Negative) Urine Ketones (Negative) Urine Occult Blood (Negative) Urine Nitrite (Negative) Urine Bilirubin (Negative) Urine Urobilinogen (0.2-1.0) Ur Leukocyte Esterase (Negative) Urine RBC (0-5) /hpf Urine WBC (0-5) /hpf Ur Epithelial Cells (0-5) /hpf Urine Bacteria (FEW) /hpf Urine Mucus (FEW) /hpf 07/29/17 07/29/17 07/29/17 Range/Units 19:45 20:20 22:25 WBC (3.98-10.04) K/mm3 RBC (3.98-5.22) M/mm3 Hgb (11.2-15.7) gm/L Hct (34.1-44.9) % MCV (79.4-94.8) fl MCH (25.6-32.2) pg MCHC (32.2-35.5) g/dl RDW Std Deviation (36.4-46.3) fL Plt Count (182-369) K/mm3 MPV (9.4-12.3) fl Neutrophils % (Manual) (40-60) % Band Neutrophils % (0-10) % Lymphocytes % (Manual) (20-40) % Atypical Lymphs % % Monocytes % (Manual) (2-10) % Eosinophils % (Manual) (0.7-5.8) % Basophils % (Manual) (0.1-1.2) Platelet Estimate RBC Morph Comment Sodium (136-145) mEq/L Potassium (3.5-5.1) mEq/L Chloride (98-107) mEq/L Carbon Dioxide (21-32) mEq/L Anion Gap (5-15) BUN (7-18) mg/dL Creatinine (0.55-1.02) mg/dL Est Cr Clr Drug Dosing mL/min Estimated GFR (MDRD) (>60) mL/min BUN/Creatinine Ratio (14-18) Glucose (80-115) mg/dL POC Glucose 265 H (80-115) mg/dL Calcium (8.5-10.1) mg/dL Magnesium 1.7 L (1.8-2.4) mg/dl Total Bilirubin (0.2-1.0) mg/dL AST (15-37) U/L ALT (14-59) U/L Alkaline Phosphatase (46-116) U/L Troponin I (0.00-0.056) ng/mL C-Reactive Protein (<1.0) mg/dL NT-Pro-B Natriuret Pep (0-125) pg/mL Total Protein (6.4-8.2) g/dl Albumin (3.4-5.0) g/dl Globulin gm/dL Albumin/Globulin Ratio (1-2) Urine Color Yellow (Yellow) Urine Appearance Clear (Clear) Urine pH 6.0 (5.0-8.0) Ur Specific [place] 1.025 (1.005-1.030) Urine Protein 1+ H (Negative) Urine Glucose (UA) Trace H (Negative) Urine Ketones Negative (Negative) Urine Occult Blood Negative (Negative) Urine Nitrite Negative (Negative) Urine Bilirubin Negative (Negative) Urine Urobilinogen 0.2 (0.2-1.0) Ur Leukocyte Esterase Negative (Negative) Urine RBC 0-5 (0-5) /hpf Urine WBC 0-5 (0-5) /hpf Ur Epithelial Cells 5-10 H (0-5) /hpf Urine Bacteria Few (FEW) /hpf Urine Mucus Moderate H (FEW) /hpf /02/ Range/Units 06:45 WBC (3.98-10.04) K/mm3 RBC (3.98-5.22) M/mm3 Hgb (11.2-15.7) gm/L Hct (34.1-44.9) % MCV (79.4-94.8) fl MCH (25.6-32.2) pg MCHC (32.2-35.5) g/dl RDW Std Deviation (36.4-46.3) fL Plt Count (182-369) K/mm3 MPV (9.4-12.3) fl Neutrophils % (Manual) (40-60) % Band Neutrophils % (0-10) % Lymphocytes % (Manual) (20-40) % Atypical Lymphs % % Monocytes % (Manual) (2-10) % Eosinophils % (Manual) (0.7-5.8) % Basophils % (Manual) (0.1-1.2) Platelet Estimate RBC Morph Comment Sodium (136-145) mEq/L Potassium (3.5-5.1) mEq/L Chloride (98-107) mEq/L Carbon Dioxide (21-32) mEq/L Anion Gap (5-15) BUN (7-18) mg/dL Creatinine (0.55-1.02) mg/dL Est Cr Clr Drug Dosing mL/min Estimated GFR (MDRD) (>60) mL/min BUN/Creatinine Ratio (14-18) Glucose (80-115) mg/dL POC Glucose 397 H (80-115) mg/dL Calcium (8.5-10.1) mg/dL Magnesium (1.8-2.4) mg/dl Total Bilirubin (0.2-1.0) mg/dL AST (15-37) U/L ALT (14-59) U/L Alkaline Phosphatase (46-116) U/L Troponin I (0.00-0.056) ng/mL C-Reactive Protein (<1.0) mg/dL NT-Pro-B Natriuret Pep (0-125) pg/mL Total Protein (6.4-8.2) g/dl Albumin (3.4-5.0) g/dl Globulin gm/dL Albumin/Globulin Ratio (1-2) Urine Color (Yellow) Urine Appearance (Clear) Urine pH (5.0-8.0) Ur Specific [place] (1.005-1.030) Urine Protein (Negative) Urine Glucose (UA) (Negative) Urine Ketones (Negative) Urine Occult Blood (Negative) Urine Nitrite (Negative) Urine Bilirubin (Negative) Urine Urobilinogen (0.2-1.0) Ur Leukocyte Esterase (Negative) Urine RBC (0-5) /hpf Urine WBC (0-5) /hpf Ur Epithelial Cells (0-5) /hpf Urine Bacteria (FEW) /hpf Urine Mucus (FEW) /hpf Antoni Results Last 24 Hours: Microbiology 07/30/17 00:18 Gram Stain - Final Sputum - Expectorated Med Orders - Current: Current Medications Acetaminophen (Tylenol) 650 mg PO Q4H PRN PRN Reason: Pain (Mild 1-3)/fever Last Admin: 07/30/17 06:54 Dose: 650 mg Albuterol/Ipratropium (Duoneb 3.0-0.5 Mg/3 Ml) 3 ml NEB Q6HRRT PRN PRN Reason: Shortness of Breath Albuterol/Ipratropium (Duoneb 3.0-0.5 Mg/3 Ml) 3 ml .XX QIDRT [facility] Last Admin: 07/30/17 06:19 Dose: 3 ml Allopurinol (Zyloprim) 300 mg PO DAILY [facility] Aspirin (Aspirin) 81 mg PO DAILY [facility] Bisacodyl (Dulcolax) 5 mg PO DAILY PRN PRN Reason: Constipation Dextrose/Water (Dextrose 50% In Water) 50 ml IVPUSH ASDIRECTED PRN PRN Reason: Hypoglycemia Docusate Sodium (Colace) 100 mg PO BID PRN PRN Reason: Constipation Enoxaparin Sodium (Lovenox) 40 mg SUBCUT DAILY [facility] Glipizide (Glucotrol Xl) 10 mg PO BID [facility] Last Admin: 07/29/17 22:54 Dose: Not Given Sodium Chloride (Normal Saline) 1,000 mls @ 125 mls/hr IV ASDIRECTED [facility] Last Admin: 07/30/17 03:20 Dose: 125 mls/hr Azithromycin 500 mg/ Sodium (Chloride) 250 mls @ 250 mls/hr IV DAILY [facility] Insulin Aspart (Novolog) 0 unit SUBCUT QIDACANDBED [facility]; Protocol Last Admin: 07/29/17 23:15 Dose: 9 units Lisinopril (Prinivil) 10 mg PO DAILY [facility] Magnesium Oxide (Magnesium Oxide) 400 mg PO DAILY [facility] Magnesium Sulfate (Pharmacy To Dose - Magnesium Replacement) 1 dose .XX ASDIRECTED [facility] Metoprolol Tartrate (Lopressor) 5 mg IVPUSH Q4H PRN PRN Reason: Tachycardia Morphine Sulfate (Morphine) 2 mg IVPUSH Q4H PRN PRN Reason: Other Stop: 08/03/17 20:49 Last Admin: 07/30/17 01:56 Dose: 2 mg Non-Formulary Medication (Lovastatin [Lovastatin]) 10 mg PO BEDTIME [facility] Tresiba Insulin (Pt Own) 0 each SUBCUT BEDTIME [facility] Last Admin: 07/30/17 02:00 Dose: Not Given Oxycodone HCl (Oxycodone) 5 mg PO Q4H PRN PRN Reason: Pain (moderate 4-6) Polyethylene Glycol (Miralax) 17 gm PO DAILY PRN PRN Reason: Constipation Potassium Chloride (Pharmacy To Dose - Potassium Replacement) 1 dose .XX ASDIRECTED [facility] Prednisone (Prednisone) 60 mg PO WITHBREAKFAST [facility] Senna/Docusate Sodium (Senna Plus) 1 tab PO BID PRN PRN Reason: Constipation Sertraline HCl (Zoloft) 50 mg PO DAILY [facility] Temazepam (Restoril) 15 mg PO BEDTIME PRN PRN Reason: Sleep Last Admin: 07/29/17 22:51 Dose: 15 mg Theophylline (Theophylline Anhydrous) 300 mg PO DAILY [facility] Discontinued Medications Albuterol/Ipratropium (Duoneb 3.0-0.5 Mg/3 Ml) 3 ml NEB ONETIME ONE Stop: 07/29/17 19:49 Last Admin: 07/29/17 19:54 Dose: 3 ml Azithromycin 500 mg/ Sodium (Chloride) 250 mls @ 250 mls/hr IV ONETIME ONE Stop: 07/29/17 22:44 Last Admin: 07/30/17 02:06 Dose: Not Given Magnesium Sulfate/Dextrose 1 (gm/ Premix) 100 mls @ 100 mls/hr IV ONETIME ONE Stop: 07/29/17 22:06 Last Admin: 07/30/17 00:01 Dose: 100 mls/hr Aminophylline 250 mg/ Dextrose (/Water) 60 mls @ 100 mls/hr IV ONETIME ONE Stop: 07/29/17 21:42 Last Admin: 07/30/17 02:07 Dose: Not Given Azithromycin 500 mg/ Sodium (Chloride) 250 mls @ 250 mls/hr IV ONETIME ONE Stop: 07/29/17 23:44 Last Admin: 07/29/17 22:48 Dose: 250 mls/hr Magnesium Sulfate/Dextrose 1 (gm/ Premix) 100 mls @ 100 mls/hr IV ONETIME ONE Stop: 07/29/17 23:59 Last Admin: 07/30/17 01:55 Dose: 100 mls/hr Methylprednisolone Sodium Succinate (Solu-Medrol) 125 mg IVPUSH ONETIME ONE Stop: 07/29/17 20:01 Last Admin: 07/29/17 20:05 Dose: 125 mg - Exam Quality Assessment: Supplemental Oxygen General: Alert, Oriented, Cooperative, No Acute Distress, Mild Distress, Other ( look worn out) HEENT: Pupils Equal, Pupils Reactive, EOMI, Mucous Membr. Moist/[place] Neck: Supple, Trachea Midline, No JVD, No Thyromegaly, Other (no acessory muscle use) Lungs: Normal Respiratory Effort, Decreased Breath Sounds, Wheezing (very milc) Cardiovascular: Regular Rate, Regular Rhythm GI/Abdominal Exam: Normal Bowel Sounds, Soft, Non-Tender, No Organomegaly, No Distention, No Abnormal Bruit, No Mass, Other (Obese) (Female) Exam: Deferred Back Exam: Normal Inspection, Decreased Range of Motion Extremities: Normal Inspection, Normal Range of Motion, Non-Tender, No Pedal Edema, Normal Capillary Refill Peripheral Pulses: 2+: Dorsalis Pedis (L), Dorsalis Pedis (R) Skin: Warm, Dry, Intact Neurological: No New Focal Deficit Psy/Mental Status: Alert, Normal Affect, Normal Mood - Problem List Review Problem List Initiated/Reviewed/Updated: Yes - My Orders Last 24 Hours: My Active Orders 07/29/17 20:43 Metoprolol Tartrate [Lopressor] 5 mg IVPUSH Q4H PRN 07/29/17 20:44 Up With Assistance [RC] ASDIRECTED Up ad [place] [RC] ASDIRECTED Acetaminophen [Tylenol] 650 mg PO Q4H PRN Morphine 2 mg IVPUSH Q4H PRN oxyCODONE 5 mg PO Q4H PRN Resuscitation Status Routine 07/29/17 20:45 Oxygen Therapy [RC] PRN VTE/DVT Education [RC] PER UNIT ROUTINE Vital Signs [RC] Q4H Magnesium Rep Pharmacy to Dose [Pharmacy to Dose - Magnesium Replacement] 1 dose .XX ASDIRECTED Potassium Rep Pharmacy to Dose [Pharmacy to Dose - Potassium Replacement] 1 dose .XX ASDIRECTED 07/29/17 20:50 Bisacodyl [Dulcolax] 5 mg PO DAILY PRN Docusate Sodium [Colace] 100 mg PO BID PRN Docusate Sodium/Sennosides [Senna Plus] 1 tab PO BID PRN Polyethylene Glycol 3350 [MiraLAX] 17 gm PO DAILY PRN Temazepam [Restoril] 15 mg PO BEDTIME PRN 07/29/17 20:56 Consult to Case Management [CONS] Routine Consult to Multicultural Manager [CONS] Routine Consult to Schedule Manager [CONS] Routine OT Evaluation and Treatment [CONS] Routine PT Evaluation and Treatment [CONS] Routine Respiratory Care Assess and Treatment [CONS] Routine 07/29/17 21:00 Albuterol/Ipratropium [DuoNeb 3.0-0.5 MG/3 ML] 3 ml .XX QIDRT glipiZIDE [Glucotrol XL] 10 mg PO BID 07/29/17 21:13 Blood Glucose Check, Bedside [RC] QIDACANDBED Dextrose 50% in Water 50 ml IVPUSH ASDIRECTED PRN 07/29/17 22:00 Insulin Aspart [NovoLOG] See Protocol SUBCUT QIDACANDBED 07/29/17 Dinner Consistent Carbohydrate Diet [DIET] Heart Healthy Diet [DIET] 07/30/17 00:00 Non-Formulary Medication [NF Drug] 0 each SUBCUT BEDTIME 07/30/17 00:18 CULTURE SPUTUM + SMEAR [RM] Stat 07/30/17 02:00 Albuterol/Ipratropium [DuoNeb 3.0-0.5 MG/3 ML] 3 ml NEB Q6HRRT PRN 07/30/17 05:45 BASIC METABOLIC PANEL,BMP [CHEM] AM C-REACTIVE PROTEIN [CHEM] AM CBC WITH AUTO DIFF [HEME] AM MAGNESIUM [CHEM] AM 07/30/17 07:00 Echo Comp wo Cont [US] Routine predniSONE 60 mg PO WITHBREAKFAST 07/30/17 09:00 Allopurinol [Zyloprim] 300 mg PO DAILY Aspirin 81 mg PO DAILY Azithromycin [Zithromax] 500 mg Sodium Chloride 0.9% [Normal Saline] 250 ml IV DAILY Enoxaparin [Lovenox] 40 mg SUBCUT DAILY Lisinopril [Prinivil] 10 mg PO DAILY Magnesium Oxide 400 mg PO DAILY Sertraline [Zoloft] 50 mg PO DAILY Theophylline [Theophylline Anhydrous] 300 mg PO DAILY 07/30/17 21:00 Lovastatin [Lovastatin] 10 mg PO BEDTIME 07/31/17 05:11 BASIC METABOLIC PANEL,BMP [CHEM] AM C-REACTIVE PROTEIN [CHEM] AM CBC WITH AUTO DIFF [HEME] AM MAGNESIUM [CHEM] AM 07/31/17 07:00 Chest 1V Frontal [CR] Routine 08/01/17 05:11 BASIC METABOLIC PANEL,BMP [CHEM] AM C-REACTIVE PROTEIN [CHEM] AM CBC WITH AUTO DIFF [HEME] AM MAGNESIUM [CHEM] AM 08/02/17 05:11 BASIC METABOLIC PANEL,BMP [CHEM] AM C-REACTIVE PROTEIN [CHEM] AM CBC WITH AUTO DIFF [HEME] AM MAGNESIUM [CHEM] AM 08/03/17 05:11 BASIC METABOLIC PANEL,BMP [CHEM] AM C-REACTIVE PROTEIN [CHEM] AM CBC WITH AUTO DIFF [HEME] AM MAGNESIUM [CHEM] AM - Plan Plan:: Assessment/Plan: Acute: COPD Exacerbation with Multiple ED visits, Minimally Improved - Advanced Stage; Cannot r/o cardiac in etiology - She recently discharge don 06/30/2014 here for the same complaints - Her last ED visit was on 07/25/2017 - She quit smoking back in December - IV Azithromycin--> start oral dose in AM, IV Magnesium, bronchodilators, Continue oral steroid - IVP PRN Morphine for Dyspnea/Severe SOB - Will hold off on IV Aminophylline treatment - She was advised to see a specialist but never got around to it - CT scan with IV contrast in AM DM 2 - BS not well controlled due to recent steroid use; in the 200-300s - Resume Tresiba (intolerant to levemir); daughter to bring in her Tresiba ( we don't carry it in our formulary) - Accu-check QID AC and HS and ISS - Resume Metformin after 48 hrs starting in AM - ADA diet Morbid Obesity with BMI 55.9 - Dietary consult for weight management Probable GERARDO - Recommend sleep study after discharge - This is likely contributory to her dyspnea - 2D echo in AM for baseline Possible Medical Non-compliance Resolved: S/p Hypomagnesemia - Mg 1.7 --> 2.2 - 2/2 inadequate intake and respiratory issues - Replete and monitor Chronic: Impaired Vision/Renal Detachment Gout Asthma OA DM2 Migraines DAVALOS Anxiety Depression Former smoker; quit back in Sep Obesity with BMI of 44.6 Plan: She is improved marginally. We maybe dealing with combined lung and heart issues here Continue current treatment Routine AM Labs Prednisone 40 mg po daily starting tomorrow Continue RT/PT/OT consult CT scan in AM SW/ for d/c planning Additional orders as above Code status: 1
[2017-07-30] MEDS ORDERED: Insulin Detemir 100 Units/ML 3 ML Pen SUBCUT SCH (08:00)
[2017-07-30] MEDS: Insulin Aspart 100 Units/ML 3 ML Pen SUBCUT SCH ×4 (08:07→21:35)
--- NOTE | 2017-07-30 08:07 | CR ---
Chest: Portable view of the chest was obtained. Comparison: Prior chest x-ray of 07/25/17. Heart size is slightly enlarged as an interval change from previous exam. Upper mediastinum is within normal limits. Mild scarring is seen within the left midlung. Lungs otherwise are clear. Bony structures are grossly intact. Impression: 1. Heart slightly more prominent than on prior chest x-ray. 2. Other incidental findings. Diagnostic code #2
[2017-07-30] MEDS: Lisinopril 10 MG Tab PO SCH (08:08)
[2017-07-30] MEDS: Magnesium Oxide 400 MG Tab PO SCH (08:08)
[2017-07-30] MEDS: Enoxaparin 40 MG/0.4 ML Syringe SUBCUT SCH (08:08)
[2017-07-30] MEDS: Aspirin 81 MG Tab.Chew PO SCH (08:09)
[2017-07-30] MEDS: glipiZIDE 5 MG Tab.ER PO SCH ×2 (08:09→21:34)
[2017-07-30] MEDS: Sertraline 50 MG Tab PO SCH (08:09)
[2017-07-30] MEDS: Allopurinol 300 MG Tab PO SCH (08:09)
[2017-07-30] MEDS ORDERED: Azithromycin 500 MG in Sodium Chloride 0.9% 250 ML IV SCH (09:00)
[2017-07-30] MEDS ORDERED: Theophylline 300 MG Tab.ER PO SCH (09:00)
[2017-07-30] MEDS ORDERED: Non-Formulary Medication 1 Each (Metformin [Glucophage] 1,000 MG) PO SCH (21:00)
[2017-07-30] MEDS: Simvastatin 10 MG Tab PO SCH (21:33)
[2017-07-30] MEDS: Temazepam 15 MG Cap PO PRN (21:33)
[2017-07-31] MEDS: Sodium Chloride 0.9% 500 ML IV ONE ×2 (06:15→08:30)
[2017-07-31] MEDS: Insulin Aspart 100 Units/ML 3 ML Pen SUBCUT SCH ×4 (06:16→21:26)
[2017-07-31] MEDS: predniSONE 20 MG Tab PO SCH (06:16)
[2017-07-31] MEDS: Albuterol/Ipratropium 3.0-0.5 MG/3 ML Neb Soln SCH ×4 (06:24→20:20)
--- NOTE | 2017-07-31 06:46 | PCM.PN ---
- General Info Date of Service: 07/31/17 Admission Dx/Problem (Free Text): Admission Diagnosis/Problem Admission Diagnosis/Problem COPD, Severe chronic obstructive pulmonary disease Subjective Update: Follow Up Functional Status: Reports: Pain Controlled, Tolerating Diet, Ambulating, Urinating - Review of Systems General: Reports: Fatigue. Denies: Fever, Weakness, Malaise, Chills HEENT: Reports: No Symptoms Pulmonary: Reports: Shortness of Breath, Cough. Denies: Sputum, Wheezing Cardiovascular: Reports: Dyspnea on Exertion. Denies: Chest Pain, Palpitations , Edema Gastrointestinal: Reports: Flatus. Denies: Abdominal Pain, Constipation, Decreased Appetite, Diarrhea, Nausea, Vomiting Genitourinary: Denies: Frequency, Burning, Urgency, Retention Skin: Denies: Cyanosis, Jaundice, Mottled, Pallor, Diaphoresis Neurological: Denies: Confusion, Dizziness, Headache, Pre-Existing Deficit, Difficulty Walking, Weakness, Gait Disturbance Psychiatric: Denies: Depression, Anxiety, Agitation, Hallucinations Systems Review Comment:: She slept pretty good. She feels much better this morning. She has no new complaints. - Patient Data Vitals - Most Recent: Last Vital Signs Temp 36.7 C 07/31/17 04:28 Pulse 84 07/31/17 04:28 Resp 30 H 07/31/17 04:28 BP 133/73 07/31/17 04:28 Pulse Ox 100 07/31/17 06:24 Weight - Most Recent: 118.252 kg I&O - Last 24 Hours: Intake & Output 07/30/17 07/30/17 07/31/17 14:59 22:59 06:59 Intake Total 360 2725 400 Output Total 2050 Balance 360 675 400 Lab Results Last 24 Hours: Laboratory Results - last 24 hr 07/30/17 07/30/17 07/30/17 Range/Units 05:45 05:45 06:45 WBC 6.87 (3.98-10.04) K/mm3 RBC 3.64 L (3.98-5.22) M/mm3 Hgb 10.0 L (11.2-15.7) gm/L Hct 32.4 L (34.1-44.9) % MCV 89.0 (79.4-94.8) fl MCH 27.5 (25.6-32.2) pg MCHC 30.9 L (32.2-35.5) g/dl RDW Std Deviation 49.7 H (36.4-46.3) fL Plt Count 115 L (182-369) K/mm3 MPV 10.9 (9.4-12.3) fl Neut % (Auto) 84.1 H (34.0-71.1) % Lymph % (Auto) 13.2 L (19.3-51.7) % [place] % (Auto) 1.3 L (4.7-12.5) % Eos % (Auto) 0.3 L (0.7-5.8) Baso % (Auto) 0.1 (0.1-1.2) % Neut # (Auto) 5.77 (1.56-6.13) K/mm3 Lymph # (Auto) 0.91 L (1.18-3.74) K/mm3 [place] # (Auto) 0.09 L (0.24-0.36) K/mm3 Eos # (Auto) 0.02 L (0.04-0.36) K/mm3 Baso # (Auto) 0.01 (0.01-0.08) K/mm3 Sodium 142 (136-145) mEq/L Potassium 5.0 (3.5-5.1) mEq/L Chloride 107 (98-107) mEq/L Carbon Dioxide 25 (21-32) mEq/L Anion Gap 15.0 (5-15) BUN 24 H (7-18) mg/dL Creatinine 1.0 (0.55-1.02) mg/dL Est Cr Clr Drug Dosing 47.14 mL/min Estimated GFR (MDRD) 55 (>60) mL/min BUN/Creatinine Ratio 24.0 H (14-18) Glucose 416 H (80-115) mg/dL POC Glucose 397 H (80-115) mg/dL Calcium 8.3 L (8.5-10.1) mg/dL Magnesium 2.2 (1.8-2.4) mg/dl C-Reactive Protein 0.4 (<1.0) mg/dL 07/30/17 07/30/17 07/30/17 Range/Units 11:35 16:59 21:23 WBC (3.98-10.04) K/mm3 RBC (3.98-5.22) M/mm3 Hgb (11.2-15.7) gm/L Hct (34.1-44.9) % MCV (79.4-94.8) fl MCH (25.6-32.2) pg MCHC (32.2-35.5) g/dl RDW Std Deviation (36.4-46.3) fL Plt Count (182-369) K/mm3 MPV (9.4-12.3) fl Neut % (Auto) (34.0-71.1) % Lymph % (Auto) (19.3-51.7) % [place] % (Auto) (4.7-12.5) % Eos % (Auto) (0.7-5.8) Baso % (Auto) (0.1-1.2) % Neut # (Auto) (1.56-6.13) K/mm3 Lymph # (Auto) (1.18-3.74) K/mm3 [place] # (Auto) (0.24-0.36) K/mm3 Eos # (Auto) (0.04-0.36) K/mm3 Baso # (Auto) (0.01-0.08) K/mm3 Sodium (136-145) mEq/L Potassium (3.5-5.1) mEq/L Chloride (98-107) mEq/L Carbon Dioxide (21-32) mEq/L Anion Gap (5-15) BUN (7-18) mg/dL Creatinine (0.55-1.02) mg/dL Est Cr Clr Drug Dosing mL/min Estimated GFR (MDRD) (>60) mL/min BUN/Creatinine Ratio (14-18) Glucose 381 H (80-115) mg/dL POC Glucose 303 H 330 H (80-115) mg/dL Calcium (8.5-10.1) mg/dL Magnesium (1.8-2.4) mg/dl C-Reactive Protein (<1.0) mg/dL 07/31/17 Range/Units 06:03 WBC (3.98-10.04) K/mm3 RBC (3.98-5.22) M/mm3 Hgb (11.2-15.7) gm/L Hct (34.1-44.9) % MCV (79.4-94.8) fl MCH (25.6-32.2) pg MCHC (32.2-35.5) g/dl RDW Std Deviation (36.4-46.3) fL Plt Count (182-369) K/mm3 MPV (9.4-12.3) fl Neut % (Auto) (34.0-71.1) % Lymph % (Auto) (19.3-51.7) % [place] % (Auto) (4.7-12.5) % Eos % (Auto) (0.7-5.8) Baso % (Auto) (0.1-1.2) % Neut # (Auto) (1.56-6.13) K/mm3 Lymph # (Auto) (1.18-3.74) K/mm3 [place] # (Auto) (0.24-0.36) K/mm3 Eos # (Auto) (0.04-0.36) K/mm3 Baso # (Auto) (0.01-0.08) K/mm3 Sodium (136-145) mEq/L Potassium (3.5-5.1) mEq/L Chloride (98-107) mEq/L Carbon Dioxide (21-32) mEq/L Anion Gap (5-15) BUN (7-18) mg/dL Creatinine (0.55-1.02) mg/dL Est Cr Clr Drug Dosing mL/min Estimated GFR (MDRD) (>60) mL/min BUN/Creatinine Ratio (14-18) Glucose (80-115) mg/dL POC Glucose 148 H (80-115) mg/dL Calcium (8.5-10.1) mg/dL Magnesium (1.8-2.4) mg/dl C-Reactive Protein (<1.0) mg/dL Antoni Results Last 24 Hours: Microbiology 07/30/17 00:18 Gram Stain - Final Sputum - Expectorated Sputum Culture - Preliminary Med Orders - Current: Current Medications Acetaminophen (Tylenol) 650 mg PO Q4H PRN PRN Reason: Pain (Mild 1-3)/fever Last Admin: 07/30/17 06:54 Dose: 650 mg Albuterol/Ipratropium (Duoneb 3.0-0.5 Mg/3 Ml) 3 ml NEB Q6HRRT PRN PRN Reason: Shortness of Breath Albuterol/Ipratropium (Duoneb 3.0-0.5 Mg/3 Ml) 3 ml .XX QIDRT [facility] Last Admin: 07/31/17 06:24 Dose: 3 ml Allopurinol (Zyloprim) 300 mg PO DAILY [facility] Last Admin: 07/30/17 08:09 Dose: 300 mg Aspirin (Aspirin) 81 mg PO DAILY [facility] Last Admin: 07/30/17 08:09 Dose: 81 mg Azithromycin (Zithromax) 250 mg PO DAILY [facility] Bisacodyl (Dulcolax) 5 mg PO DAILY PRN PRN Reason: Constipation Dextrose/Water (Dextrose 50% In Water) 50 ml IVPUSH ASDIRECTED PRN PRN Reason: Hypoglycemia Docusate Sodium (Colace) 100 mg PO BID PRN PRN Reason: Constipation Enoxaparin Sodium (Lovenox) 40 mg SUBCUT DAILY [facility] Last Admin: 07/30/17 08:08 Dose: 40 mg Glipizide (Glucotrol Xl) 10 mg PO BID [facility] Last Admin: 07/30/17 21:34 Dose: 10 mg Insulin Aspart (Novolog) 0 unit SUBCUT QIDACANDBED [facility]; Protocol Last Admin: 07/31/17 06:16 Dose: Not Given Lisinopril (Prinivil) 10 mg PO DAILY [facility] Last Admin: 07/30/17 08:08 Dose: 10 mg Magnesium Oxide (Magnesium Oxide) 400 mg PO DAILY [facility] Last Admin: 07/30/17 08:08 Dose: 400 mg Magnesium Sulfate (Pharmacy To Dose - Magnesium Replacement) 1 dose .XX ASDIRECTED [facility] Metoprolol Tartrate (Lopressor) 5 mg IVPUSH Q4H PRN PRN Reason: Tachycardia Morphine Sulfate (Morphine) 2 mg IVPUSH Q4H PRN PRN Reason: Other Stop: 08/03/17 20:49 Last Admin: 07/30/17 18:33 Dose: 2 mg Oxycodone HCl (Oxycodone) 5 mg PO Q4H PRN PRN Reason: Pain (moderate 4-6) Tresiba Insulin (Pt Own) 0 each SUBCUT BEDTIME [facility] Last Admin: 07/30/17 21:37 Dose: 1 each Polyethylene Glycol (Miralax) 17 gm PO DAILY PRN PRN Reason: Constipation Potassium Chloride (Pharmacy To Dose - Potassium Replacement) 1 dose .XX ASDIRECTED [facility] Prednisone (Prednisone) 40 mg PO WITHBREAKFAST [facility] Last Admin: 07/31/17 06:16 Dose: 40 mg Senna/Docusate Sodium (Senna Plus) 1 tab PO BID PRN PRN Reason: Constipation Sertraline HCl (Zoloft) 50 mg PO DAILY [facility] Last Admin: 07/30/17 08:09 Dose: 50 mg Simvastatin (Zocor) 5 mg PO BEDTIME [facility] Last Admin: 07/30/17 21:33 Dose: 5 mg Temazepam (Restoril) 15 mg PO BEDTIME PRN PRN Reason: Sleep Last Admin: 07/30/17 21:33 Dose: 15 mg Discontinued Medications Albuterol/Ipratropium (Duoneb 3.0-0.5 Mg/3 Ml) 3 ml NEB ONETIME ONE Stop: 07/29/17 19:49 Last Admin: 07/29/17 19:54 Dose: 3 ml Sodium Chloride (Normal Saline) 1,000 mls @ 125 mls/hr IV ASDIRECTED [facility] Last Admin: 07/30/17 03:20 Dose: 125 mls/hr Azithromycin 500 mg/ Sodium (Chloride) 250 mls @ 250 mls/hr IV ONETIME ONE Stop: 07/29/17 22:44 Last Admin: 07/30/17 02:06 Dose: Not Given Magnesium Sulfate/Dextrose 1 (gm/ Premix) 100 mls @ 100 mls/hr IV ONETIME ONE Stop: 07/29/17 22:06 Last Admin: 07/30/17 00:01 Dose: 100 mls/hr Aminophylline 250 mg/ Dextrose (/Water) 60 mls @ 100 mls/hr IV ONETIME ONE Stop: 07/29/17 21:42 Last Admin: 07/30/17 02:07 Dose: Not Given Azithromycin 500 mg/ Sodium (Chloride) 250 mls @ 250 mls/hr IV DAILY [facility] Last Admin: 07/30/17 08:41 Dose: 250 mls/hr Azithromycin 500 mg/ Sodium (Chloride) 250 mls @ 250 mls/hr IV ONETIME ONE Stop: 07/29/17 23:44 Last Admin: 07/29/17 22:48 Dose: 250 mls/hr Magnesium Sulfate/Dextrose 1 (gm/ Premix) 100 mls @ 100 mls/hr IV ONETIME ONE Stop: 07/29/17 23:59 Last Admin: 07/30/17 01:55 Dose: 100 mls/hr Sodium Chloride (Normal Saline) 500 mls @ 999 mls/hr IV .BOLUS ONE Stop: 07/31/17 06:30 Last Admin: 07/31/17 06:15 Dose: 999 mls/hr Methylprednisolone Sodium Succinate (Solu-Medrol) 125 mg IVPUSH ONETIME ONE Stop: 07/29/17 20:01 Last Admin: 07/29/17 20:05 Dose: 125 mg Tresiba Insulin (Pt Own) 0 each SUBCUT BEDTIME [facility] Last Admin: 07/30/17 02:00 Dose: Not Given Non-Formulary Medication (Metformin [Glucophage]) 1,000 mg PO BID [facility] Prednisone (Prednisone) 60 mg PO WITHBREAKFAST [facility] Last Admin: 07/30/17 08:09 Dose: 60 mg Theophylline (Theophylline Anhydrous) 300 mg PO DAILY [facility] Last Admin: 07/30/17 11:36 Dose: Not Given - Exam Quality Assessment: Supplemental Oxygen General: Alert, Oriented, Cooperative, No Acute Distress HEENT: Pupils Equal, Pupils Reactive, EOMI, Mucous Membr. Moist/[place] Neck: Supple, Trachea Midline, No JVD, Other (short and thick). No: No Thyromegaly Lungs: Normal Respiratory Effort, Decreased Breath Sounds Cardiovascular: Regular Rate, Regular Rhythm GI/Abdominal Exam: Normal Bowel Sounds, Soft, Non-Tender, No Organomegaly, No Distention, No Abnormal Bruit, No Mass (Female) Exam: Deferred Back Exam: Normal Inspection, Decreased Range of Motion Extremities: Normal Inspection, Normal Range of Motion, Non-Tender, No Pedal Edema, Normal Capillary Refill Peripheral Pulses: 2+: Dorsalis Pedis (L), Dorsalis Pedis (R) Skin: Warm, Dry, Intact Neurological: No New Focal Deficit Psy/Mental Status: Alert, Normal Affect, Normal Mood - Problem List Review Problem List Initiated/Reviewed/Updated: Yes - My Orders Last 24 Hours: My Active Orders 07/30/17 09:00 Allopurinol [Zyloprim] 300 mg PO DAILY Aspirin 81 mg PO DAILY Enoxaparin [Lovenox] 40 mg SUBCUT DAILY Lisinopril [Prinivil] 10 mg PO DAILY Magnesium Oxide 400 mg PO DAILY Sertraline [Zoloft] 50 mg PO DAILY 07/30/17 14:36 Patient's Own Medication [Ptom] 0 each SUBCUT BEDTIME 07/30/17 21:00 Simvastatin [Zocor] 5 mg PO BEDTIME 07/31/17 05:11 BASIC METABOLIC PANEL,BMP [CHEM] AM C-REACTIVE PROTEIN [CHEM] AM CBC WITH AUTO DIFF [HEME] AM MAGNESIUM [CHEM] AM 07/31/17 07:00 Chest 1V Frontal [CR] Routine Chest w Cont [CT] Routine predniSONE 40 mg PO WITHBREAKFAST 07/31/17 09:00 Azithromycin [Zithromax] 250 mg PO DAILY 08/01/17 05:11 BASIC METABOLIC PANEL,BMP [CHEM] AM C-REACTIVE PROTEIN [CHEM] AM CBC WITH AUTO DIFF [HEME] AM MAGNESIUM [CHEM] AM 08/02/17 05:11 BASIC METABOLIC PANEL,BMP [CHEM] AM C-REACTIVE PROTEIN [CHEM] AM CBC WITH AUTO DIFF [HEME] AM MAGNESIUM [CHEM] AM 08/03/17 05:11 BASIC METABOLIC PANEL,BMP [CHEM] AM C-REACTIVE PROTEIN [CHEM] AM CBC WITH AUTO DIFF [HEME] AM MAGNESIUM [CHEM] AM - Plan Plan:: Assessment/Plan: Acute: COPD Exacerbation with Multiple ED visits, Continues to Improve - Advanced Stage - She recently discharge don 06/30/2014 here for the same complaints - Her last ED visit was on 07/25/2017 - She quit smoking back in December - Continue Oral azithromycin, IV Magnesium, Bronchodilators, Continue oral steroid - IVP PRN Morphine for Dyspnea/Severe SOB - She was advised to see a specialist but never got around to it - CT scan with IV contrast: Slight density within the left base compatible with atelectasis or scarring. Nothing acute seen. DM 2 - BS not well controlled due to recent steroid use; in the 200-300s - Resume Tresiba (intolerant to levemir); daughter to bring in her Tresiba ( we don't carry it in our formulary) - Accu-check QID AC and HS and ISS - Resume Metformin after 48 hrs starting in AM - ADA diet Morbid Obesity with BMI 55.9 - Dietary consult for weight management Probable GERARDO - Recommend sleep study after discharge - This is likely contributory to her dyspnea - 2D echo: LVEF 55-60%, Grade 1 Diastolic Dysfunction, Unable to assess RWM Possible Medical Non-compliance Resolved: S/p Hypomagnesemia - Mg 1.7 --> 2.2 - 2/2 inadequate intake and respiratory issues - Replete and monitor Chronic: Impaired Vision/Renal Detachment Gout Asthma OA DM2 Migraines DAVALOS Anxiety Depression Former smoker; quit back in Sep Obesity with BMI of 44.6 Plan: She is better this morning clinically Continue current treatment Routine AM Labs Resume home oral steroid in AM Continue RT/PT/OT consult SW/CM for d/c planning Additional orders as above Code status: 1 Possible d/c in AM
[2017-07-31] MEDS ORDERED: Sodium Chloride 0.9% 10 ML Syringe FLUSH ONE (07:57)
[2017-07-31] MEDS ORDERED: Iopamidol 755 Mg/ML 100 ML Bottle IVPUSH ONE (07:57)
[2017-07-31] MEDS: glipiZIDE 5 MG Tab.ER PO SCH ×2 (08:31→20:29)
[2017-07-31] MEDS: Aspirin 81 MG Tab.Chew PO SCH (08:31)
[2017-07-31] MEDS: Enoxaparin 40 MG/0.4 ML Syringe SUBCUT SCH (08:31)
[2017-07-31] MEDS: Lisinopril 10 MG Tab PO SCH (08:31)
[2017-07-31] MEDS: Magnesium Oxide 400 MG Tab PO SCH ×2 (08:31→20:29)
[2017-07-31] MEDS: Azithromycin 250 MG Tab PO SCH (08:32)
[2017-07-31] MEDS: Allopurinol 300 MG Tab PO SCH (08:32)
[2017-07-31] MEDS: Sertraline 50 MG Tab PO SCH (08:32)
[2017-07-31] MEDS: Acetaminophen 325 MG Tab PO PRN (09:49)
--- NOTE | 2017-07-31 11:11 | CR ---
Chest: PA view of the chest was obtained. Comparison: Previous portable chest x-ray of 07/29/17. Heart size and mediastinum are normal. Minimal atelectasis or scar is seen behind the left heart. Lungs show no acute parenchymal densities. Bony structures are grossly intact. Impression: 1. Nothing acute is appreciated on frontal chest x-ray. Diagnostic code #2
--- NOTE | 2017-07-31 11:11 | CT ---
CT chest Technique: Multiple axial sections through the chest were obtained. Intravenous contrast was utilized. Comparison: No prior chest CT, previous chest x-ray performed earlier on the same day (7:52 AM). Findings: Slight density is seen within the left base compatible with atelectasis or slight scarring. Lungs otherwise are clear. Small portion of the visualized upper abdominal structures show previous cholecystectomy. No pericardial thickening is seen. Slight atherosclerotic calcification is noted within the aorta. Mediastinum shows small lymph nodes which are within normal limits. No axillary adenopathy is seen. Bone window settings were reviewed which appear within normal limits for the patient's age. Impression: 1. Slight density within the left base compatible with atelectasis or scarring. 2. Other incidental findings. Nothing acute is appreciated on CT study of the chest. Diagnostic code #2
[2017-07-31] MEDS: Temazepam 15 MG Cap PO PRN (20:29)
[2017-07-31] MEDS: Simvastatin 10 MG Tab PO SCH (20:29)
[2017-08-01] MEDS: Albuterol/Ipratropium 3.0-0.5 MG/3 ML Neb Soln SCH ×2 (05:33→09:14)
[2017-08-01] MEDS: Insulin Aspart 100 Units/ML 3 ML Pen SUBCUT SCH ×2 (06:34→10:15)
[2017-08-01] MEDS: predniSONE 20 MG Tab PO SCH (06:35)
--- NOTE | 2017-08-01 07:36 | PCM.DCSUM1 ---
Discharge Summary - Hospital Course HPI Initial Comments: This is a 67 yo white female with oast medical hx/o Impaired Vision/Renal Detachment, Gout, Asthma, OA, DM2, Migraines DAVALOS, Anxiety, Depression, Former smoker; quit back in Sep, and Obesity with BMI of 44.6 who comes in for worsening shortness of breath with dyspnea. She was recently seen in ED for similar presentation and was discharged from this hospital back in for treatment of COPD exacerbation. Her initial work up shows a CBC remarkable for hemoglobin of 11, MCHC of 31.4, RDW of 48.4, platelet count of 158, and neutrophils of 67%. Her chemistry is remarkable for an anion gap of 17.3, BUN of 22, glucose of 267, magnesium 1.7 and albumin of 3.3. Her UA is not impressive for urinary tract infection. Her CRX shows no acute abnormal findings. She is being admitted for medical management of COPD exacerbation. She is full code. - Discharge Data Discharge Date: 08/01/17 (Admit date: 07/29/17) Discharge Disposition: Home, Self-Care 01 Condition: Good - Discharge Diagnosis/Problem(s) (1) Acute exacerbation of chronic obstructive pulmonary disease (COPD) SNOMED Code(s): 705579627 ICD Code: J44.1 - CHRONIC OBSTRUCTIVE PULMONARY DISEASE W (ACUTE) EXACERBATION Status: Acute Priority: High Current Visit: Yes (2) Hypomagnesemia SNOMED Code(s): 580773326 ICD Code: E83.42 - HYPOMAGNESEMIA Status: Acute Priority: High Current Visit: Yes (3) Diabetes type 2, uncontrolled SNOMED Code(s): 22156017, 040664689 ICD Code: E11.65 - TYPE 2 DIABETES MELLITUS WITH HYPERGLYCEMIA Status: Chronic Priority: Medium Current Visit: Yes Qualifiers: Diabetes mellitus long term care pharmacist insulin use: with long term care pharmacist use Diabetes mellitus complication status: without complication Qualified Code(s): E11.65 - Type 2 diabetes mellitus with hyperglycemia; Z79.4 - custodial (current) use of insulin (4) Morbid obesity with BMI of 45.0-49.9, adult SNOMED Code(s): 826118303 ICD Code: E66.01 - MORBID (SEVERE) OBESITY DUE TO EXCESS CALORIES; Z68.42 - BODY MASS INDEX (BMI) 45.0-49.9, ADULT Status: Chronic Priority: Medium Current Visit: Yes - Patient Summary/Data Consults: Consultations 07/29/17 20:56 Consult to Case Management [CONS] Routine Consult to Secy [CONS] Routine Consult to Reel Worker [CONS] Routine OT Evaluation and Treatment [CONS] Routine PT Evaluation and Treatment [CONS] Routine Respiratory Care Assess and Treatment [CONS] Routine Labs Pending at D/C: None Recommended Follow-up Testing/Procedures: Follow-up with PCP in 7-10 days. We recommend a sleep study after discharge. She may benefit from pulmonary rehab. This can be set-up through PCP if desired. Hospital Course: Assessment/Plan: Acute: COPD Exacerbation with Multiple ED visits, Continues to Improve - Advanced Stage - She recently discharge don 06/30/2014 here for the same complaints - Her last ED visit was on 07/25/2017 - She quit smoking back in December - Continue Oral azithromycin, IV Magnesium, Bronchodilators, Continue oral steroid - IVP PRN Morphine for Dyspnea/Severe SOB - She was advised to see a specialist but never got around to it - CT scan with IV contrast: Slight density within the left base compatible with atelectasis or scarring. Nothing acute seen. DM 2 - BS not well controlled due to recent steroid use; in the 200-300s - Resume Tresiba (intolerant to levemir); daughter to bring in her Tresiba ( we don't carry it in our formulary) - Accu-check QID AC and HS and ISS - Resume Metformin after 48 hrs starting in AM - ADA diet Morbid Obesity with BMI 55.9 - Dietary consult for weight management Probable GERARDO - Recommend sleep study after discharge - This is likely contributory to her dyspnea - 2D echo: LVEF 55-60%, Grade 1 Diastolic Dysfunction, Unable to assess RWM Possible Medical Non-compliance Resolved: S/p Hypomagnesemia - Mg 1.7 --> 2.2 - 2/2 inadequate intake and respiratory issues - Replete and monitor Chronic: Impaired Vision/Renal Detachment Gout Asthma OA DM2 Migraines DAVALOS Anxiety Depression Former smoker; quit back in Sep Obesity with BMI of 44.6 Plan: She is better this morning clinically Continue current treatment Routine AM Labs Resume home oral steroid in AM Continue RT/PT/OT consult SW/CM for d/c planning Additional orders as above Code status: 1 Discharge this AM Overall Prerna did quite well during her stay with us. We are recommending she receive a sleep study after discharge as this may be contributing to her symptoms. We strongly suggest she establish with a blast hole driller. She has reportedly been trying to get to an appointment but has never been able to find a ride. She was instructed to take her medications as prescribed. She will be discharged today on a medrol dose pack and her regular home medications. She was instructed to follow-up with her PCP in 7-10 days. She may benefit from pulmonary rehab and this is something her PCP can help her sign up with if desired. - Patient Instructions Diet: Diabetic Diet Activity: As Tolerated Showering/Bathing: May Shower Notify Provider of: Fever, Increased Pain, Nausea and/or Vomiting - Discharge Plan Prescriptions/Med Rec: methylPREDNISolone [Medrol] 4 mg PO ASDIRECTED #1 dosepk Home Medications: Home Meds Allopurinol [Zyloprim] 300 mg PO DAILY 04/18/15 [History] Aspirin [Sacha Chewable Aspirin] 81 mg PO DAILY 04/18/15 [History] Lisinopril 10 mg PO DAILY 04/18/15 [History] Lovastatin 10 mg PO BEDTIME 04/18/15 [History] metFORMIN [Glucophage] 1,000 mg PO BID 04/18/15 [History] Sertraline [Zoloft] 50 tab PO DAILY 08/26/15 [History] Insulin Degludec [Tresiba Flextouch U-200] 55 unit SQ BEDTIME 01/16/17 [History] glipiZIDE [Glipizide ER] 10 mg PO BID #60 01/23/17 [Rx] Albuterol/Ipratropium [DuoNeb 3.0-0.5 MG/3 ML] 3 ml NEB Q6H PRN 06/28/17 [ History] Meloxicam [Mobic] 15 mg PO DAILY 06/28/17 [History] Albuterol [IJD: Ventolin HFA] 2 puff INH .TWICE DAILY 10 Days #18 gm 07/02/17 [ Rx] Albuterol/Ipratropium [DuoNeb 3.0-0.5 MG/3 ML] 3 ml .XX QID #100 neb 07/25/17 [ Rx] Magnesium Chloride [Slow-Mag] 71.5 mg PO BID 07/31/17 [History] methylPREDNISolone [Medrol] 4 mg PO ASDIRECTED #1 dosepk 08/01/17 [Rx] Patient Handouts: Chronic Obstructive Pulmonary Disease Exacerbation, Easy-to- Read, Hypomagnesemia, Obesity, Adult, [id number] Forms: ED Department Discharge Referrals: Lisandra Mazariegos PA-C [Primary Care Provider] - - Discharge Summary/Plan Comment DC Time >30 min.: Yes (45 mins) - General Info Admission Dx/Problem (Free Text: Admission Diagnosis/Problem Admission Diagnosis/Problem COPD, Severe chronic obstructive pulmonary disease Subjective Update: In to see Pat today. She is sitting in her chair and waiting on a shower. She has no concerns or complaints. She reports she called her family and they will be coming to get her later. Nursing has no complaints. Labs look good. She reports baseline SOB. Functional Status: Reports: Pain Controlled, Tolerating Diet, Ambulating, Urinating. Denies: New Symptoms - Review of Systems General: Reports: Fatigue. Denies: Fever, Weakness, Malaise HEENT: Reports: No Symptoms Pulmonary: Reports: Shortness of Breath (baseline). Denies: Cough, Sputum, Wheezing Cardiovascular: Reports: Dyspnea on Exertion (baseline ). Denies: Chest Pain, Palpitations, Lightheadedness Gastrointestinal: Reports: No Symptoms. Denies: Abdominal Pain, Constipation, Diarrhea, Nausea, Vomiting Genitourinary: Reports: No Symptoms Musculoskeletal: Reports: No Symptoms Skin: Reports: No Symptoms Neurological: Reports: No Symptoms Psychiatric: Reports: No Symptoms - Patient Data Vitals - Most Recent: Last Vital Signs Temp 97.9 F 08/01/17 04:27 Pulse 84 08/01/17 04:27 Resp 20 08/01/17 04:27 BP 129/71 08/01/17 04:27 Pulse Ox 97 08/01/17 05:35 Weight - Most Recent: 263 lb 7 oz I&O - Last 24 hours: Intake & Output 07/31/17 08/01/17 08/01/17 22:59 06:59 14:59 Intake Total 840 600 Output Total 1400 1500 Balance -560 -900 Lab Results - Last 24 hrs: Laboratory Results - last 24 hr 07/31/17 07/31/17 07/31/17 Range/Units 06:25 11:28 16:57 WBC (3.98-10.04) K/mm3 RBC (3.98-5.22) M/mm3 Hgb (11.2-15.7) gm/L Hct (34.1-44.9) % MCV (79.4-94.8) fl MCH (25.6-32.2) pg MCHC (32.2-35.5) g/dl RDW Std Deviation (36.4-46.3) fL Plt Count (182-369) K/mm3 MPV (9.4-12.3) fl Neut % (Auto) (34.0-71.1) % Lymph % (Auto) (19.3-51.7) % Jennings % (Auto) (4.7-12.5) % Eos % (Auto) (0.7-5.8) Baso % (Auto) (0.1-1.2) % Neut # (Auto) (1.56-6.13) K/mm3 Lymph # (Auto) (1.18-3.74) K/mm3 Jennings # (Auto) (0.24-0.36) K/mm3 Eos # (Auto) (0.04-0.36) K/mm3 Baso # (Auto) (0.01-0.08) K/mm3 Sodium 145 (136-145) mEq/L Potassium 4.0 (3.5-5.1) mEq/L Chloride 108 H (98-107) mEq/L Carbon Dioxide 27 (21-32) mEq/L Anion Gap 14.0 (5-15) BUN 21 H (7-18) mg/dL Creatinine 0.8 (0.55-1.02) mg/dL Est Cr Clr Drug Dosing 58.93 mL/min Estimated GFR (MDRD) > 60 (>60) mL/min BUN/Creatinine Ratio 26.3 H (14-18) Glucose 146 H (80-115) mg/dL POC Glucose 384 H 354 H (80-115) mg/dL Calcium 8.8 (8.5-10.1) mg/dL Magnesium 2.2 (1.8-2.4) mg/dl C-Reactive Protein 0.3 (<1.0) mg/dL 04/03/18 04/04/18 04/04/18 Range/Units 21:04 06:04 06:05 WBC 10.23 H (3.98-10.04) K/mm3 RBC 3.91 L (3.98-5.22) M/mm3 Hgb 10.5 L (11.2-15.7) gm/L Hct 34.8 (34.1-44.9) % MCV 89.0 (79.4-94.8) fl MCH 26.9 (25.6-32.2) pg MCHC 30.2 L (32.2-35.5) g/dl RDW Std Deviation 50.1 H (36.4-46.3) fL Plt Count 164 L (182-369) K/mm3 MPV 10.3 (9.4-12.3) fl Neut % (Auto) 62.7 (34.0-71.1) % Lymph % (Auto) 28.7 (19.3-51.7) % Jennings % (Auto) 6.8 (4.7-12.5) % Eos % (Auto) 0.6 L (0.7-5.8) Baso % (Auto) 0.2 (0.1-1.2) % Neut # (Auto) 6.41 H (1.56-6.13) K/mm3 Lymph # (Auto) 2.94 (1.18-3.74) K/mm3 Jennings # (Auto) 0.70 H (0.24-0.36) K/mm3 Eos # (Auto) 0.06 (0.04-0.36) K/mm3 Baso # (Auto) 0.02 (0.01-0.08) K/mm3 Sodium (136-145) mEq/L Potassium (3.5-5.1) mEq/L Chloride (98-107) mEq/L Carbon Dioxide (21-32) mEq/L Anion Gap (5-15) BUN (7-18) mg/dL Creatinine (0.55-1.02) mg/dL Est Cr Clr Drug Dosing mL/min Estimated GFR (MDRD) (>60) mL/min BUN/Creatinine Ratio (14-18) Glucose (80-115) mg/dL POC Glucose 191 H 97 (80-115) mg/dL Calcium (8.5-10.1) mg/dL Magnesium (1.8-2.4) mg/dl C-Reactive Protein (<1.0) mg/dL 08/01/17 Range/Units 06:05 WBC (3.98-10.04) K/mm3 RBC (3.98-5.22) M/mm3 Hgb (11.2-15.7) gm/L Hct (34.1-44.9) % MCV (79.4-94.8) fl MCH (25.6-32.2) pg MCHC (32.2-35.5) g/dl RDW Std Deviation (36.4-46.3) fL Plt Count (182-369) K/mm3 MPV (9.4-12.3) fl Neut % (Auto) (34.0-71.1) % Lymph % (Auto) (19.3-51.7) % Jennings % (Auto) (4.7-12.5) % Eos % (Auto) (0.7-5.8) Baso % (Auto) (0.1-1.2) % Neut # (Auto) (1.56-6.13) K/mm3 Lymph # (Auto) (1.18-3.74) K/mm3 Jennings # (Auto) (0.24-0.36) K/mm3 Eos # (Auto) (0.04-0.36) K/mm3 Baso # (Auto) (0.01-0.08) K/mm3 Sodium 145 (136-145) mEq/L Potassium 3.7 (3.5-5.1) mEq/L Chloride 109 H (98-107) mEq/L Carbon Dioxide 30 (21-32) mEq/L Anion Gap 9.7 (5-15) BUN 20 H (7-18) mg/dL Creatinine 0.8 (0.55-1.02) mg/dL Est Cr Clr Drug Dosing 58.93 mL/min Estimated GFR (MDRD) > 60 (>60) mL/min BUN/Creatinine Ratio 25.0 H (14-18) Glucose 100 (80-115) mg/dL POC Glucose (80-115) mg/dL Calcium 9.0 (8.5-10.1) mg/dL Magnesium 2.1 (1.8-2.4) mg/dl C-Reactive Protein 0.3 (<1.0) mg/dL [place] Results - Last 24 hrs: Microbiology 07/30/17 00:18 Gram Stain - Final Sputum - Expectorated Sputum Culture - Preliminary Med Orders - Current: Current Medications Acetaminophen (Tylenol) 650 mg PO Q4H PRN PRN Reason: Pain (Mild 1-3)/fever Last Admin: 07/31/17 09:49 Dose: 650 mg Albuterol/Ipratropium (Duoneb 3.0-0.5 Mg/3 Ml) 3 ml NEB Q6HRRT PRN PRN Reason: Shortness of Breath Albuterol/Ipratropium (Duoneb 3.0-0.5 Mg/3 Ml) 3 ml .XX QIDRT [facility] Last Admin: 08/01/17 05:33 Dose: 3 ml Allopurinol (Zyloprim) 300 mg PO DAILY [facility] Last Admin: 07/31/17 08:32 Dose: 300 mg Aspirin (Aspirin) 81 mg PO DAILY [facility] Last Admin: 07/31/17 08:31 Dose: 81 mg Azithromycin (Zithromax) 250 mg PO DAILY [facility] Last Admin: 07/31/17 08:32 Dose: 250 mg Bisacodyl (Dulcolax) 5 mg PO DAILY PRN PRN Reason: Constipation Dextrose/Water (Dextrose 50% In Water) 50 ml IVPUSH ASDIRECTED PRN PRN Reason: Hypoglycemia Docusate Sodium (Colace) 100 mg PO BID PRN PRN Reason: Constipation Enoxaparin Sodium (Lovenox) 40 mg SUBCUT DAILY [facility] Last Admin: 07/31/17 08:31 Dose: 40 mg Glipizide (Glucotrol Xl) 10 mg PO BID [facility] Last Admin: 07/31/17 20:29 Dose: 10 mg Insulin Aspart (Novolog) 0 unit SUBCUT QIDACANDBED [facility]; Protocol Last Admin: 08/01/17 06:34 Dose: Not Given Lisinopril (Prinivil) 10 mg PO DAILY [facility] Last Admin: 07/31/17 08:31 Dose: 10 mg Magnesium Oxide (Magnesium Oxide) 400 mg PO DAILY [facility] Last Admin: 07/31/17 08:31 Dose: 400 mg Magnesium Oxide (Magnesium Oxide) 400 mg PO BID [facility] Last Admin: 07/31/17 20:29 Dose: 400 mg Magnesium Sulfate (Pharmacy To Dose - Magnesium Replacement) 1 dose .XX ASDIRECTED [facility] Metoprolol Tartrate (Lopressor) 5 mg IVPUSH Q4H PRN PRN Reason: Tachycardia Morphine Sulfate (Morphine) 2 mg IVPUSH Q4H PRN PRN Reason: Other Stop: 08/03/17 20:49 Last Admin: 07/30/17 18:33 Dose: 2 mg Oxycodone HCl (Oxycodone) 5 mg PO Q4H PRN PRN Reason: Pain (moderate 4-6) Last Admin: 08/01/17 01:57 Dose: 5 mg Tresiba Insulin (Pt Own) 0 each SUBCUT BEDTIME [facility] Last Admin: 07/31/17 21:25 Dose: 1 each Polyethylene Glycol (Miralax) 17 gm PO DAILY PRN PRN Reason: Constipation Potassium Chloride (Pharmacy To Dose - Potassium Replacement) 1 dose .XX ASDIRECTED [facility] Prednisone (Prednisone) 40 mg PO WITHBREAKFAST [facility] Last Admin: 08/01/17 06:35 Dose: 40 mg Senna/Docusate Sodium (Senna Plus) 1 tab PO BID PRN PRN Reason: Constipation Sertraline HCl (Zoloft) 50 mg PO DAILY [facility] Last Admin: 07/31/17 08:32 Dose: 50 mg Simvastatin (Zocor) 5 mg PO BEDTIME [facility] Last Admin: 07/31/17 20:29 Dose: 5 mg Temazepam (Restoril) 15 mg PO BEDTIME PRN PRN Reason: Sleep Last Admin: 07/31/17 20:29 Dose: 15 mg Discontinued Medications Albuterol/Ipratropium (Duoneb 3.0-0.5 Mg/3 Ml) 3 ml NEB ONETIME ONE Stop: 07/29/17 19:49 Last Admin: 07/29/17 19:54 Dose: 3 ml Sodium Chloride (Normal Saline) 1,000 mls @ 125 mls/hr IV ASDIRECTED [facility] Last Admin: 07/30/17 03:20 Dose: 125 mls/hr Azithromycin 500 mg/ Sodium (Chloride) 250 mls @ 250 mls/hr IV ONETIME ONE Stop: 07/29/17 22:44 Last Admin: 07/30/17 02:06 Dose: Not Given Magnesium Sulfate/Dextrose 1 (gm/ Premix) 100 mls @ 100 mls/hr IV ONETIME ONE Stop: 07/29/17 22:06 Last Admin: 07/30/17 00:01 Dose: 100 mls/hr Aminophylline 250 mg/ Dextrose (/Water) 60 mls @ 100 mls/hr IV ONETIME ONE Stop: 07/29/17 21:42 Last Admin: 07/30/17 02:07 Dose: Not Given Azithromycin 500 mg/ Sodium (Chloride) 250 mls @ 250 mls/hr IV DAILY [facility] Last Admin: 07/30/17 08:41 Dose: 250 mls/hr Azithromycin 500 mg/ Sodium (Chloride) 250 mls @ 250 mls/hr IV ONETIME ONE Stop: 07/29/17 23:44 Last Admin: 07/29/17 22:48 Dose: 250 mls/hr Magnesium Sulfate/Dextrose 1 (gm/ Premix) 100 mls @ 100 mls/hr IV ONETIME ONE Stop: 07/29/17 23:59 Last Admin: 07/30/17 01:55 Dose: 100 mls/hr Sodium Chloride (Normal Saline) 500 mls @ 999 mls/hr IV .BOLUS ONE Stop: 07/31/17 06:30 Last Admin: 07/31/17 08:30 Dose: 999 mls/hr Iopamidol (Isovue-370 (76%)) 100 ml IVPUSH ONETIME ONE Stop: 07/31/17 07:58 Last Admin: 07/31/17 08:15 Dose: 75 ml Methylprednisolone Sodium Succinate (Solu-Medrol) 125 mg IVPUSH ONETIME ONE Stop: 07/29/17 20:01 Last Admin: 07/29/17 20:05 Dose: 125 mg Tresiba Insulin (Pt Own) 0 each SUBCUT BEDTIME [facility] Last Admin: 07/30/17 02:00 Dose: Not Given Non-Formulary Medication (Metformin [Glucophage]) 1,000 mg PO BID [facility] Prednisone (Prednisone) 60 mg PO WITHBREAKFAST [facility] Last Admin: 07/30/17 08:09 Dose: 60 mg Sodium Chloride (Saline Flush) 10 ml FLUSH ONETIME ONE Stop: 07/31/17 07:58 Last Admin: 07/31/17 08:15 Dose: 10 ml Theophylline (Theophylline Anhydrous) 300 mg PO DAILY [facility] Last Admin: 07/30/17 11:36 Dose: Not Given - Exam Quality Assessment: Reports: Supplemental Oxygen, DVT Prophylaxis General: Reports: Oriented, Cooperative, No Acute Distress HEENT: Reports: Pupils Equal, Pupils Reactive, EOMI, Mucous Membr. Moist/[place]ck: Reports: Supple, Trachea Midline Lungs: Reports: Normal Respiratory Effort, Decreased Breath Sounds Cardiovascular: Reports: Regular Rate, Regular Rhythm GI/Abdominal Exam: Normal Bowel Sounds, Soft, Non-Tender, No Organomegaly, No Distention, No Abnormal Bruit, No Mass, Pelvis Stable (Female) Exam: Deferred Rectal (Female) Exam: Deferred Back Exam: Reports: Normal Inspection, Full Range of Motion Extremities: Normal Inspection, Normal Range of Motion, Non-Tender, Normal Capillary Refill, Pedal Edema (trace ) Skin: Reports: Warm, Dry, Intact Neurological: Reports: No New Focal Deficit Psy/Mental Status: Reports: Alert, Normal Affect, Normal Mood
[2017-08-01 09:06] VITALS: BP 127/60
[2017-08-01] MEDS: glipiZIDE 5 MG Tab.ER PO SCH (09:07)
[2017-08-01] MEDS: Enoxaparin 40 MG/0.4 ML Syringe SUBCUT SCH (09:07)
[2017-08-01] MEDS: Lisinopril 10 MG Tab PO SCH (09:08)
[2017-08-01] MEDS: Aspirin 81 MG Tab.Chew PO SCH (09:08)
[2017-08-01] MEDS: Azithromycin 250 MG Tab PO SCH (09:08)
[2017-08-01] MEDS: Allopurinol 300 MG Tab PO SCH (09:08)
[2017-08-01] MEDS: Sertraline 50 MG Tab PO SCH (09:08)
[2017-08-01] MEDS: Magnesium Oxide 400 MG Tab PO SCH ×2 (09:08)
== END 2017-08-01 11:48 | disposition home or self-care (01) | DRG 191 ==
LOC: JD.ED 19:28 → JD.MS 20:55
PROVIDERS: ADMIT Internal Medicine; ATTEND Internal Medicine
DX: J44.1 Chronic obstructive pulmonary disease with (acute) exacerbation (principal); Z68.41 Body mass index [BMI] 40.0-44.9, adult; R53.81 Other malaise; H54.7 Unspecified visual loss; E78.00 Pure hypercholesterolemia, unspecified; I10 Essential (primary) hypertension; R19.7 Diarrhea, unspecified; N20.0 Calculus of kidney; R07.1 Chest pain on breathing; M54.9 Dorsalgia, unspecified; M10.9 Gout, unspecified; G43.909 Migraine, unspecified, not intractable, without status migrainosus; E11.40 Type 2 diabetes mellitus with diabetic neuropathy, unspecified; F32.9 Major depressive disorder, single episode, unspecified; F41.9 Anxiety disorder, unspecified; R53.1 Weakness; R53.83 Other fatigue; R60.9 Edema, unspecified; K59.00 Constipation, unspecified; N39.3 Stress incontinence (female) (male); E83.42 Hypomagnesemia; R07.9 Chest pain, unspecified; E11.65 Type 2 diabetes mellitus with hyperglycemia; E66.01 Morbid (severe) obesity due to excess calories; M19.90 Unspecified osteoarthritis, unspecified site; F17.210 Nicotine dependence, cigarettes, uncomplicated; G47.33 Obstructive sleep apnea (adult) (pediatric); T38.0X5A Adverse effect of glucocorticoids and synthetic analogues, initial encounter; R06.02 Shortness of breath; R10.9 Unspecified abdominal pain; R06.00 Dyspnea, unspecified; R06.2 Wheezing; R50.9 Fever, unspecified; R14.0 Abdominal distension (gaseous); R05 Cough; Z87.442 Personal history of urinary calculi; Z79.82 Long term (current) use of aspirin; Z79.899 Other long term (current) drug therapy; Z87.891 Personal history of nicotine dependence; Z79.4 Long term (current) use of insulin; Z99.81 Dependence on supplemental oxygen; Z88.1 Allergy status to other antibiotic agents; Z88.8 Allergy status to other drugs, medicaments and biological substances; Z87.01 Personal history of pneumonia (recurrent); Z90.710 Acquired absence of both cervix and uterus; Z90.49 Acquired absence of other specified parts of digestive tract
CPT/HCPCS: 36415; 71045; 80053; 81001; 83735; 83880; 84484; 85025; 86140; 93005; 94640; 96361; 96374; 99285; J2930; J7040; 71260; 71260-26; 80048; 82947; 82962; 87070; 87205; 93010; 93306; 94760; 94761; 97110-GP; 97116-GP; 97162-GP; 97165-GO; 99284-25; A9270-GY; J0456; J1650; J1815-GY; J2270; J3475; J7050; Q9967

== ENCOUNTER 2017-12-25 11:41 | Inpatient (IN) | payer MEDICARE, MEDICAID ==
[2017-12-25] MEDS ORDERED: Albuterol/Ipratropium 3.0-0.5 MG/3 ML Neb Soln ONE (11:56)
[2017-12-25] MEDS ORDERED: methylPREDNISolone Sodium Succinate 125 MG/2 ML SDV IVPUSH ONE (12:03)
[2017-12-25] MEDS ORDERED: Sodium Chloride 0.9% 10 ML Syringe FLUSH PRN (12:03)
[2017-12-25] MEDS ORDERED: Albuterol/Ipratropium 3.0-0.5 MG/3 ML Neb Soln NEB ONE (12:05)
--- NOTE | 2017-12-25 12:11 | EDM.PDOC ---
ED HPI GENERAL MEDICAL PROBLEM - General Chief Complaint: Respiratory Problem Stated Complaint: TROUBLE BREATHING Time Seen by Provider: 12/25/17 11:53 Source of Information: Reports: Old Records (previous ER, hospitalization records) History Limitations: Reports: No Limitations - History of Present Illness INITIAL COMMENTS - FREE TEXT/NARRATIVE: 67-year-old female presents via private vehicle for evaluation and treatment of shortness of breath. Patient reports symptoms really worsened yesterday. She normally is on 2 L of oxygen via nasal cannula at night only. She states when she got up this morning she utilized a nebulizer which did not seem to help with her shortness of breath at all. She has a past medical history of COPD. She is currently complaining of body aches, sore throat, shortness of breath and a cough. She has been feeling feverish but her thermometer at home has not registered a temperature. She denies any ear pain, chest pain or abdominal pain. She states she has been feeling nauseous on occasion. No vomiting. She states that she has pain "everywhere" all the time. Generalized Pain Score (Numeric/FACES): 7 - Related Data Allergies Allergy/AdvReac Type Severity Reaction Status Date / Time insulin detemir Allergy Mild Itching Verified 12/25/17 15:11 [From Levemir] doxycycline Allergy Swelling Verified 12/25/17 15:11 Home Meds: Home Meds Allopurinol [Zyloprim] 300 mg PO DAILY 04/18/15 [History] Aspirin [Sacha Chewable Aspirin] 81 mg PO DAILY 04/18/15 [History] Lisinopril 10 mg PO DAILY 04/18/15 [History] Lovastatin 10 mg PO BEDTIME 04/18/15 [History] metFORMIN [Glucophage] 1,000 mg PO BID 04/18/15 [History] Sertraline [Zoloft] 50 tab PO DAILY 08/26/15 [History] Insulin Degludec [Tresiba Flextouch U-200] 60 unit SQ BEDTIME 01/16/17 [History] glipiZIDE [Glipizide ER] 10 mg PO BID #60 01/23/17 [Rx] Albuterol/Ipratropium [DuoNeb 3.0-0.5 MG/3 ML] 3 ml NEB Q6H PRN 06/28/17 [ History] Meloxicam [Mobic] 15 mg PO DAILY 06/28/17 [History] Albuterol/Ipratropium [DuoNeb 3.0-0.5 MG/3 ML] 3 ml INH QID 12/25/17 [History] Cholecalciferol (Vitamin D3) [Vitamin D] 5,000 unit PO WEEKLY 12/25/17 [History] Pantoprazole Sodium [Protonix] 20 mg PO DAILY 12/25/17 [History] hydroCHLOROthiazide [Hydrochlorothiazide] 25 mg PO DAILY 12/25/17 [History] Past Medical History HEENT History: Reports: Impaired Vision, Retinal Detachment 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: Musculoskeletal History: Reports: Back Pain, Chronic, Gout, Other (See Below) Other Musculoskeletal History: Right knee pain Neurological History: Reports: Migraines, Neuropathy, Diabetic Psychiatric History: Reports: Anxiety, Depression Endocrine/Metabolic History: Reports: Diabetes, Type II Hematologic History: Reports: None Immunologic History: Reports: None Oncologic (Cancer) History: Reports: None Dermatologic History: Reports: None - Infectious Disease History Infectious Disease History: Reports: Measles, Mumps - Past Surgical History HEENT Surgical History: Reports: Eye Surgery, Other (See Below) Other HEENT Surgeries/Procedures: retinal detachment surgery x2. Cardiovascular Surgical History: Reports: None Respiratory Surgical History: Reports: None GI Surgical History: Reports: Appendectomy, Cholecystectomy Female Surgical History: Reports: Hysterectomy, Lithotripsy/ESWL Endocrine Surgical History: Reports: None Neurological Surgical History: Reports: None Musculoskeletal Surgical History: Reports: Arthroscopic Knee Oncologic Surgical History: Reports: None Dermatological Surgical History: Reports: None Social & Family History - Family History Family Medical History: Noncontributory - Caffeine Use Caffeine Use: Reports: None - Living Situation & Occupation Living situation: Reports: Single Occupation: Retired ED ROS GENERAL - Review of Systems Review Of Systems: See Below Constitutional: Reports: Fever, Other (reports bodyaches) HEENT: Reports: Throat Pain. Denies: Ear Pain Respiratory: Reports: Shortness of Breath, Cough Cardiovascular: Denies: Chest Pain GI/Abdominal: Reports: Nausea. Denies: Abdominal Pain, Vomiting ED EXAM, GENERAL - Physical Exam Exam: See Below Exam Limited By: No Limitations General Appearance: Alert, WD/WN, No Apparent Distress, Obese Eye Exam: Bilateral Eye: Normal Inspection Ears: Normal External Exam, Normal Canal, Hearing Grossly Normal Ear Exam: Bilateral Ear: Other (TMs obscured by cerumen) Nose: Normal Inspection Throat/Mouth: Normal Inspection, Normal Lips, Normal Oropharynx, Normal Voice, No Airway Compromise Neck: Normal Inspection Respiratory/Chest: Decreased Breath Sounds, Accessory Muscle Use, Prolonged Expiration Cardiovascular: Normal Peripheral Pulses, Regular Rate, Rhythm, No Murmur GI/Abdominal: Soft, Non-Tender Neurological: Alert, Oriented, Normal Cognition Psychiatric: Normal Affect, Normal Mood Skin Exam: Warm, Dry, Normal Color EKG INTERPRETATION EKG Date: 12/25/17 Time: 12:09 Rhythm: Other (sinus tach at 109 bpm.) Rate (Beats/Min): 109 [place]: Normal P-Wave: Present QRS: Normal ST-T: Normal QT: Normal EKG Interpretation Comments: Sinus tachycardia at 109 bpm. No acute ischemic changes. Reviewed by myself and Dr. Bloom. Course - Vital Signs Last Recorded V/S: Last Vital Signs Temp 98.1 F 12/25/17 22:23 Pulse 92 12/25/17 22:23 Resp 26 H 12/25/17 22:23 BP 131/91 H 12/25/17 22:23 Pulse Ox 90 L 12/25/17 22:23 - Orders/Labs/Meds Orders: Active Orders 24 hr Category Date Time Status Cardiac Monitoring [RC] . DIRECTED Care 12/25/17 12:03 Active Oxygen Therapy [RC] ASDIRECTED Care 12/25/17 12:03 Active Chest 1V Frontal [CR] Stat Exams 12/25/17 12:03 Taken CULTURE BLOOD [BC] Stat Lab 12/25/17 12:20 Received CULTURE BLOOD [BC] Stat Lab 12/25/17 12:30 Received STREP SCRN A RAPID W CULT CONF [RM] Stat Lab 12/25/17 12:30 Ordered UA W/MICROSCOPIC [URIN] Stat Lab 12/25/17 12:12 Ordered Sodium Chloride 0.9% [Saline Flush] Med 12/25/17 12:03 Active 10 ml FLUSH ASDIRECTED PRN Blood Culture x2 Reflex Set [OM.PC] Stat Oth 12/25/17 12:05 Ordered Peripheral IV Insertion Adult [OM.PC] Routine Oth 12/25/17 12:03 Ordered EKG 12 Lead [EK] Stat Ther 12/25/17 12:03 Ordered Medication Orders Acetaminophen (Tylenol) 650 mg PO Q4H PRN PRN Reason: Pain (Mild 1-3)/fever Hydrocodone Bitart/Acetaminophen ([place] 325-5 Mg) 1 tab PO Q4H PRN PRN Reason: Pain (moderate 4-6) Albuterol/Ipratropium (Duoneb 3.0-0.5 Mg/3 Ml) 3 ml NEB Q4H PRN PRN Reason: Shortness Of Breath/wheezing Last Admin: 12/25/17 17:30 Dose: 3 ml Allopurinol (Zyloprim) 300 mg PO DAILY [facility] Aspirin (Aspirin) 81 mg PO DAILY [facility] Benzocaine/Menthol (Cepacol Sore Throat) 1 lozenge MUCMEM Q4H PRN PRN Reason: Sore Throat Bisacodyl (Dulcolax) 5 mg PO DAILY PRN PRN Reason: Constipation Cholecalciferol (Vitamin D3) 5,000 unit PO WEEKLY [facility] Docusate Sodium (Colace) 100 mg PO BID PRN PRN Reason: Constipation Enoxaparin Sodium (Lovenox) 40 mg SUBCUT DAILY [facility] Flunisolide (Nasalide Nasal [place]) 0 ml NASBOTH BID [facility] Last Admin: 12/25/17 22:36 Dose: 1 spray Glipizide (Glucotrol Xl) 10 mg PO BID [facility] Last Admin: 12/25/17 22:33 Dose: 10 mg Hydrochlorothiazide (Hydrochlorothiazide) 25 mg PO DAILY [facility] Promethazine HCl 12.5 mg/ (Sodium Chloride) 50.5 mls @ 100 mls/hr IV Q6H PRN PRN Reason: Nausea/Vomiting Azithromycin 500 mg/ Sodium (Chloride) 250 mls @ 125 mls/hr IV DAILY@1600 [facility] Insulin Glargine (Lantus Solostar) 60 units SUBCUT BEDTIME [facility] Insulin Human Lispro (Humalog) 0 unit SUBCUT QIDACANDBED [facility]; Protocol Last Admin: 12/25/17 17:01 Dose: 4 units Lisinopril (Prinivil) 10 mg PO DAILY [facility] Lorazepam (Ativan) 0.5 mg IV Q6H PRN PRN Reason: Anxiety Metformin HCl (Glucophage) 1,000 mg PO BID [facility] Last Admin: 12/25/17 22:33 Dose: 1,000 mg Methylprednisolone Sodium Succinate (Solu-Medrol) 60 mg IVPUSH TID@2100,0700, 1400 [facility] Last Admin: 12/25/17 22:33 Dose: 60 mg Miscellaneous Information (Remove Patch) 1 ea TRDERM DAILY [facility] Morphine Sulfate (Morphine) 1 mg IVPUSH Q4H PRN PRN Reason: Other Stop: 12/31/17 15:35 Nicotine (Habitrol) 21 mg TRDERM DAILY [facility] Last Admin: 12/25/17 17:33 Dose: 21 mg Ondansetron HCl (Zofran) 4 mg IV Q6H PRN PRN Reason: Nausea/Vomiting Oxymetazoline HCl (Afrin Original 0.05% Nasal [place]) 0 ml DEE Q12HR PRN PRN Reason: Nasal Congestion Pantoprazole Sodium (Protonix) 40 mg PO DAILY@0700 [facility] Phenol/Menthol (Chloraseptic) 15 ml MUCMEM Q2H PRN PRN Reason: Sore Throat Polyethylene Glycol (Miralax) 17 gm PO DAILY PRN PRN Reason: Constipation Senna/Docusate Sodium (Senna Plus) 1 tab PO BID PRN PRN Reason: Constipation Sertraline HCl (Zoloft) 50 mg PO DAILY [facility] Simvastatin (Zocor) 5 mg PO BEDTIME [facility] Last Admin: 12/25/17 22:33 Dose: 5 mg Sodium Chloride (Saline Flush) 10 ml FLUSH ASDIRECTED PRN PRN Reason: Keep Vein Open Last Admin: 12/25/17 12:20 Dose: 10 ml Temazepam (Restoril) 7.5 mg PO BEDTIME PRN PRN Reason: Sleep Labs: Laboratory Tests 12/25/17 12/25/17 12/25/17 Range/Units 12:00 12:00 12:00 WBC 14.42 H (3.98-10.04) K/mm3 RBC 4.26 (3.98-5.22) M/mm3 Hgb 11.6 (11.2-15.7) gm/L Hct 37.2 (34.1-44.9) % MCV 87.3 (79.4-94.8) fl MCH 27.2 (25.6-32.2) pg MCHC 31.2 L (32.2-35.5) g/dl RDW Std Deviation 49.1 H (36.4-46.3) fL Plt Count 208 (182-369) K/mm3 MPV 9.7 (9.4-12.3) fl Neutrophils % (Manual) 87 H (40-60) % Band Neutrophils % 0 (0-10) % Lymphocytes % (Manual) 8 L (20-40) % Atypical Lymphs % 0 % Monocytes % (Manual) 4 (2-10) % Eosinophils % (Manual) 1 (0.7-5.8) % Basophils % (Manual) 0 L (0.1-1.2) Platelet Estimate Adequate RBC Morph Comment Normal D-Dimer, Quantitative 0.45 (0.19-0.50) mg/L Sodium 136 (136-145) mEq/L Potassium 3.8 (3.5-5.1) mEq/L Chloride 99 (98-107) mEq/L Carbon Dioxide 28 (21-32) mEq/L Anion Gap 12.8 (5-15) BUN 21 H (7-18) mg/dL Creatinine 1.2 H (0.55-1.02) mg/dL Est Cr Clr Drug Dosing 39.28 mL/min Estimated GFR (MDRD) 45 (>60) mL/min BUN/Creatinine Ratio 17.5 (14-18) Glucose 194 H (80-115) mg/dL Lactic Acid (0.4-2.0) mmol/L Calcium 9.2 (8.5-10.1) mg/dL Total Bilirubin 0.5 (0.2-1.0) mg/dL AST 36 (15-37) U/L ALT 48 (14-59) U/L Alkaline Phosphatase 77 (46-116) U/L Troponin I < 0.017 (0.00-0.056) ng/mL C-Reactive Protein 3.1 H* (<1.0) mg/dL Total Protein 7.5 (6.4-8.2) g/dl Albumin 3.7 (3.4-5.0) g/dl Globulin 3.8 gm/dL Albumin/Globulin Ratio 1.0 (1-2) Urine Color (Yellow) Urine Appearance (Clear) Urine pH (5.0-8.0) Ur Specific [place] (1.005-1.030) Urine Protein (Negative) Urine Glucose (UA) (Negative) Urine Ketones (Negative) Urine Occult Blood (Negative) Urine Nitrite (Negative) Urine Bilirubin (Negative) Urine Urobilinogen (0.2-1.0) Ur Leukocyte Esterase (Negative) Mycoplasma pneumon IgM Negative (NEGATIVE) 12/25/17 12/25/17 Range/Units 12:12 12:20 WBC (3.98-10.04) K/mm3 RBC (3.98-5.22) M/mm3 Hgb (11.2-15.7) gm/L Hct (34.1-44.9) % MCV (79.4-94.8) fl MCH (25.6-32.2) pg MCHC (32.2-35.5) g/dl RDW Std Deviation (36.4-46.3) fL Plt Count (182-369) K/mm3 MPV (9.4-12.3) fl Neutrophils % (Manual) (40-60) % Band Neutrophils % (0-10) % Lymphocytes % (Manual) (20-40) % Atypical Lymphs % % Monocytes % (Manual) (2-10) % Eosinophils % (Manual) (0.7-5.8) % Basophils % (Manual) (0.1-1.2) Platelet Estimate RBC Morph Comment D-Dimer, Quantitative (0.19-0.50) mg/L Sodium (136-145) mEq/L Potassium (3.5-5.1) mEq/L Chloride (98-107) mEq/L Carbon Dioxide (21-32) mEq/L Anion Gap (5-15) BUN (7-18) mg/dL Creatinine (0.55-1.02) mg/dL Est Cr Clr Drug Dosing mL/min Estimated GFR (MDRD) (>60) mL/min BUN/Creatinine Ratio (14-18) Glucose (80-115) mg/dL Lactic Acid 2.5 H (0.4-2.0) mmol/L Calcium (8.5-10.1) mg/dL Total Bilirubin (0.2-1.0) mg/dL AST (15-37) U/L ALT (14-59) U/L Alkaline Phosphatase (46-116) U/L Troponin I (0.00-0.056) ng/mL C-Reactive Protein (<1.0) mg/dL Total Protein (6.4-8.2) g/dl Albumin (3.4-5.0) g/dl Globulin gm/dL Albumin/Globulin Ratio (1-2) Urine Color Yellow (Yellow) Urine Appearance Clear (Clear) Urine pH 6.0 (5.0-8.0) Ur Specific [place] 1.015 (1.005-1.030) Urine Protein Negative (Negative) Urine Glucose (UA) Negative (Negative) Urine Ketones Negative (Negative) Urine Occult Blood Negative (Negative) Urine Nitrite Negative (Negative) Urine Bilirubin Negative (Negative) Urine Urobilinogen 0.2 (0.2-1.0) Ur Leukocyte Esterase Negative (Negative) Mycoplasma pneumon IgM (NEGATIVE) Meds: Medications Generic Name Dose Route Start Last Admin Trade Name Freq PRN Reason Stop Dose Admin Acetaminophen 650 mg 12/25/17 15:31 Tylenol PO Q4H PRN Pain (Mild 1-3)/fever Hydrocodone Bitart/Acetaminophen 1 tab 12/25/17 15:31 [place] 325-5 Mg PO Q4H PRN Pain (moderate 4-6) Albuterol/Ipratropium 3 ml 12/25/17 15:36 12/25/17 17:30 Duoneb 3.0-0.5 Mg/3 Ml NEB 3 ml Q4H PRN Administration Shortness Of Breath/wheezing Allopurinol 300 mg 12/26/17 09:00 Zyloprim PO DAILY [facility] Aspirin 81 mg 12/26/17 09:00 Aspirin PO DAILY [facility] Benzocaine/Menthol 1 lozenge 12/25/17 17:16 Cepacol Sore Throat MUCMEM Q4H PRN Sore Throat Bisacodyl 5 mg 12/25/17 15:36 Dulcolax PO DAILY PRN Constipation Cholecalciferol 5,000 unit 12/25/17 21:30 Vitamin D3 PO WEEKLY [facility] Docusate Sodium 100 mg 12/25/17 15:36 Colace PO BID PRN Constipation Enoxaparin Sodium 40 mg 12/26/17 09:00 Lovenox SUBCUT DAILY [facility] Flunisolide 0 ml 12/25/17 21:00 12/25/17 22:36 Nasalide Nasal [place] NASBOTH 1 spray BID [facility] Administration Glipizide 10 mg 12/25/17 21:00 12/25/17 22:33 Glucotrol Xl PO 10 mg BID [facility] Administration Hydrochlorothiazide 25 mg 12/26/17 09:00 Hydrochlorothiazide PO DAILY [facility] Promethazine HCl 12.5 mg/ 50.5 mls @ 100 mls/hr 12/25/17 15:36 Sodium Chloride IV Q6H PRN Nausea/Vomiting Azithromycin 500 mg/ Sodium 250 mls @ 125 mls/hr 12/26/17 16:00 Chloride IV DAILY@1600 [facility] Insulin Glargine 60 units 12/25/17 21:00 Lantus Solostar SUBCUT BEDTIME [facility] Insulin Human Lispro 0 unit 12/25/17 17:00 12/25/17 17:01 Humalog SUBCUT 4 units QIDACANDBED [facility] Administration Protocol Lisinopril 10 mg 12/26/17 09:00 Prinivil PO DAILY [facility] Lorazepam 0.5 mg 12/25/17 15:36 Ativan IV Q6H PRN Anxiety Metformin HCl 1,000 mg 12/25/17 21:00 12/25/17 22:33 Glucophage PO 1,000 mg BID [facility] Administration Methylprednisolone Sodium Succinate 60 mg 12/25/17 21:00 12/25/17 22:33 Solu-Medrol IVPUSH 60 mg TID@2100,0700,1400 [facility] Administration Miscellaneous Information 1 ea 12/26/17 09:00 Remove Patch TRDERM DAILY [facility] Morphine Sulfate 1 mg 12/25/17 15:31 Morphine IVPUSH 12/31/17 15:35 Q4H PRN Other Nicotine 21 mg 12/25/17 17:15 12/25/17 17:33 Habitrol TRDERM 21 mg DAILY [facility] Administration Ondansetron HCl 4 mg 12/25/17 15:36 Zofran IV Q6H PRN Nausea/Vomiting Oxymetazoline HCl 0 ml 12/25/17 15:18 Afrin Original 0.05% Nasal [place] DEE Q12HR PRN Nasal Congestion Pantoprazole Sodium 40 mg 12/26/17 07:00 Protonix PO DAILY@0700 [facility] Phenol/Menthol 15 ml 12/25/17 17:17 Chloraseptic MUCMEM Q2H PRN Sore Throat Polyethylene Glycol 17 gm 12/25/17 15:36 Miralax PO DAILY PRN Constipation Senna/Docusate Sodium 1 tab 12/25/17 15:36 Senna Plus PO BID PRN Constipation Sertraline HCl 50 mg 12/26/17 09:00 Zoloft PO DAILY [facility] Simvastatin 5 mg 12/25/17 21:00 12/25/17 22:33 Zocor PO 5 mg BEDTIME [facility] Administration Sodium Chloride 10 ml 12/25/17 12:03 12/25/17 12:20 Saline Flush FLUSH 10 ml ASDIRECTED PRN Administration Keep Vein Open Temazepam 7.5 mg 12/25/17 15:36 Restoril PO BEDTIME PRN Sleep Discontinued Medications Generic Name Dose Route Start Last Admin Trade Name Freq PRN Reason Stop Dose Admin Albuterol/Ipratropium Confirm 12/25/17 11:56 12/25/17 12:04 Duoneb 3.0-0.5 Mg/3 Ml Administered 12/25/17 11:57 3 ml Dose Administration 3 ml .ROUTE .STK-MED ONE Albuterol/Ipratropium 3 ml 12/25/17 12:05 12/25/17 12:07 Duoneb 3.0-0.5 Mg/3 Ml NEB 12/25/17 12:06 Not Given ONETIME ONE Amoxicillin 500 mg 12/25/17 13:35 12/25/17 14:03 Amoxil PO 12/25/17 13:36 500 mg ONETIME ONE Administration Azithromycin 500 mg 12/26/17 09:00 Zithromax IV Q24H [facility] Sodium Chloride 1,000 mls @ 999 mls/hr 12/25/17 13:28 12/25/17 13:46 Normal Saline IV 12/25/17 14:28 999 mls/hr ONETIME ONE Administration Azithromycin 500 mg/ Sodium 250 mls @ 250 mls/hr 12/25/17 15:43 12/25/17 16: 16 Chloride IV 12/25/17 16:42 250 mls/hr ONETIME ONE Administration Ketorolac Tromethamine 30 mg 12/25/17 13:35 12/25/17 14:00 Toradol IVPUSH 12/25/17 13:36 30 mg ONETIME ONE Administration Methylprednisolone Sodium Succinate 125 mg 12/25/17 12:03 12/25/17 12:27 Solu-Medrol IVPUSH 12/25/17 12:04 125 mg ONETIME ONE Administration - Radiology Interpretation Free Text/Narrative:: chest xray shows no acute intrathoracic process - Re-Assessments/Exams Free Text/Narrative Re-Assessment/Exam: 12/25/17 13:56 Rapid strep returned positive. I reviewed the labs, EKG and imaging with the patient. I do feel the patient's hypoxia and tachypnea is related to her COPD. I'm recommending admission. She is agreeable to this. Case discussed with Dr. Bob, he is agreeable to the admission. Admitted med/ surg for COPD exacerbation. Departure - Departure Time of Disposition: 14:15 Disposition: Admitted As Inpatient 66 Condition: Fair Clinical Impression: COPD exacerbation, Hypoxia, Morbid obesity with BMI of 40.0-44.9, adult, Strep pharyngitis Type 2 diabetes mellitus Qualifiers: Diabetes mellitus terminal operator insulin use: with senior care use Diabetes mellitus complication status: with other specified complication Qualified Code(s): E11.69 - Type 2 diabetes mellitus with other specified complication - Discharge Information *PRESCRIPTION DRUG MONITORING PROGRAM REVIEWED*: No *COPY OF PRESCRIPTION DRUG MONITORING REPORT IN PATIENT RUCHI: No - My Orders Last 24 Hours: My Active Orders 12/25/17 12:03 Cardiac Monitoring [RC] . DIRECTED Oxygen Therapy [RC] ASDIRECTED Chest 1V Frontal [CR] Stat Sodium Chloride 0.9% [Saline Flush] 10 ml FLUSH ASDIRECTED PRN Peripheral IV Insertion Adult [OM.PC] Routine EKG 12 Lead [EK] Stat 12/25/17 12:05 Blood Culture x2 Reflex Set [OM.PC] Stat 12/25/17 12:12 UA W/MICROSCOPIC [URIN] Stat 12/25/17 12:20 CULTURE BLOOD [BC] Stat 12/25/17 12:30 CULTURE BLOOD [BC] Stat STREP SCRN A RAPID W CULT CONF [RM] Stat - Assessment/Plan Last 24 Hours: My Active Orders 12/25/17 12:03 Cardiac Monitoring [RC] . DIRECTED Oxygen Therapy [RC] ASDIRECTED Chest 1V Frontal [CR] Stat Sodium Chloride 0.9% [Saline Flush] 10 ml FLUSH ASDIRECTED PRN Peripheral IV Insertion Adult [OM.PC] Routine EKG 12 Lead [EK] Stat 12/25/17 12:05 Blood Culture x2 Reflex Set [OM.PC] Stat 12/25/17 12:12 UA W/MICROSCOPIC [URIN] Stat 12/25/17 12:20 CULTURE BLOOD [BC] Stat 12/25/17 12:30 CULTURE BLOOD [BC] Stat STREP SCRN A RAPID W CULT CONF [RM] Stat
[2017-12-25] MEDS ORDERED: Sodium Chloride 0.9% 1,000 ML IV ONE (13:28)
[2017-12-25] MEDS ORDERED: Amoxicillin 500 MG Cap PO ONE (13:35)
[2017-12-25] MEDS ORDERED: Ketorolac 30 MG/ML SDV IVPUSH ONE (13:35)
[2017-12-25] MEDS ORDERED: Promethazine 12.5 MG in Sodium Chloride 0.9% 50 ML IV PRN (15:36)
[2017-12-25] MEDS ORDERED: Polyethylene Glycol 3350 Powder 17 GM Packet PO PRN (15:36)
[2017-12-25] MEDS ORDERED: Bisacodyl 5 MG Tab PO PRN (15:36)
[2017-12-25] MEDS ORDERED: Ondansetron 4 MG/2 ML SDV IV PRN (15:36)
[2017-12-25] MEDS ORDERED: Docusate Sodium 100 MG Cap PO PRN (15:36)
[2017-12-25] MEDS ORDERED: Azithromycin 500 MG in Sodium Chloride 0.9% 250 ML IV ONE (15:43)
--- NOTE | 2017-12-25 15:46 | PCM.HP ---
H&P History of Present Illness - General Date of Service: 12/25/17 Admit Problem/Dx: Admission Diagnosis/Problem Admission Diagnosis/Problem COPD, Severe chronic obstructive pulmonary disease Source of Information: Patient, Old Records, Provider, RN Notes Reviewed, Significant Other History Limitations: Reports: No Limitations - History of Present Illness Initial Comments - Free Text/Narative: This is a 67 yo elderly white female with past medical hx/o HTN, HLD, COPD/ Asthma, Back Pain, Gout, OA/DJD, DM2 with Peripheral Neuropathy, Migraines, Anxiety, Depression, and Obesity with BMI of 44 18 for evaluation of worsening shortness of breath that started a few days ago. Her chief complaint is associated with generalized body aches, sore throat, congestion, and nonproductive cough. She also reports feeling feverish but no chills. Patient carries a history of COPD and she is on 2 L nasal cannula for supplemental O2. She did give herself neb treatment but her symptoms did not improve. Therefore she comes in to the emergency department for further management. Her initial workup in emergency department shows a CBC remarkable for WBC of 14.42, MCHC of 31.2, RDW of 49.1, neutrophils of 87%, and lymphocytes of 8%. Her coagulation study shows a d-dimer of 0.45. Her chemistry is significant for BUN of 21, creatinine of 1.2, glucose of 194, and lactic acid of 2.5, and CRP of 2.1. Her UA is not suggestive of UTI. Her Mycoplasma is negative but her group A streptococcal rapid screen test is positive. Chest x-ray shows no acute abnormal findings. Patient is being admitted for treatment for acute pharyngitis and COPD exacerbation. She is full code. Generalized Pain Score (Numeric/FACES): 5 - Related Data Allergies/Adverse Reactions: Allergies Allergy/AdvReac Type Severity Reaction Status Date / Time insulin detemir Allergy Mild Itching Verified 12/25/17 15:11 [From Levemir] doxycycline Allergy Swelling Verified 12/25/17 15:11 Home Medications: Home Meds Allopurinol [Zyloprim] 300 mg PO DAILY 04/18/15 [History] Aspirin [Sacha Chewable Aspirin] 81 mg PO DAILY 04/18/15 [History] Lisinopril 10 mg PO DAILY 04/18/15 [History] Lovastatin 10 mg PO BEDTIME 04/18/15 [History] metFORMIN [Glucophage] 1,000 mg PO BID 04/18/15 [History] Sertraline [Zoloft] 50 tab PO DAILY 08/26/15 [History] Insulin Degludec [Tresiba Flextouch U-200] 60 unit SQ BEDTIME 01/16/17 [History] glipiZIDE [Glipizide ER] 10 mg PO BID #60 01/23/17 [Rx] Albuterol/Ipratropium [DuoNeb 3.0-0.5 MG/3 ML] 3 ml NEB Q6H PRN 06/28/17 [ History] Meloxicam [Mobic] 15 mg PO DAILY 06/28/17 [History] Albuterol/Ipratropium [DuoNeb 3.0-0.5 MG/3 ML] 3 ml INH QID 12/25/17 [History] Cholecalciferol (Vitamin D3) [Vitamin D] 5,000 unit PO WEEKLY 12/25/17 [History] Pantoprazole Sodium [Protonix] 20 mg PO DAILY 12/25/17 [History] hydroCHLOROthiazide [Hydrochlorothiazide] 25 mg PO DAILY 12/25/17 [History] Past Medical History HEENT History: Reports: Impaired Vision, Retinal Detachment 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: Musculoskeletal History: Reports: Back Pain, Chronic, Gout, Other (See Below) Other Musculoskeletal History: Right knee pain Neurological History: Reports: Migraines, Neuropathy, Diabetic Psychiatric History: Reports: Anxiety, Depression Endocrine/Metabolic History: Reports: Diabetes, Type II Hematologic History: Reports: None Immunologic History: Reports: None Oncologic (Cancer) History: Reports: None Dermatologic History: Reports: None - Infectious Disease History Infectious Disease History: Reports: Measles, Mumps - Past Surgical History HEENT Surgical History: Reports: Eye Surgery, Other (See Below) Other HEENT Surgeries/Procedures: retinal detachment surgery x2. Cardiovascular Surgical History: Reports: None GI Surgical History: Reports: Appendectomy, Cholecystectomy Female Surgical History: Reports: Hysterectomy, Lithotripsy/ESWL Endocrine Surgical History: Reports: None Neurological Surgical History: Reports: None Musculoskeletal Surgical History: Reports: Arthroscopic Knee Oncologic Surgical History: Reports: None Dermatological Surgical History: Reports: None Social & Family History - Family History Family Medical History: Noncontributory - Tobacco Use Smoking Status *Q: Current Every Day Smoker Years of Tobacco use: 40 Packs/Tins Daily: 1 Second Hand Smoke Exposure: No - Caffeine Use Caffeine Use: Reports: Soda - Recreational Drug Use Recreational Drug Use: No - Living Situation & Occupation Living situation: Reports: Single Occupation: Retired H&P Review of Systems - Review of Systems: Review Of Systems: See Below General: Reports: Fever, Malaise. Denies: Chills, Fatigue HEENT: Reports: Rhinitis, Sinus Congestion, Sore Throat Pulmonary: Reports: Shortness of Breath, Cough Cardiovascular: Denies: Chest Pain, Dyspnea on Exertion, Lightheadedness Gastrointestinal: Denies: Abdominal Pain, Decreased Appetite, Nausea, Vomiting Genitourinary: Reports: No Symptoms Musculoskeletal: Reports: No Symptoms Skin: Denies: Cyanosis, Mottled, Diaphoresis, Rash, Erythema, Wound Psychiatric: Denies: Depression, Anxiety, Agitation, Hallucinations Neurological: Denies: Confusion, Headache, Difficulty Walking, Weakness, Gait Disturbance Immunologic: Reports: No Symptoms Exam - Exam Exam: See Below - Vital Signs Vital Signs: Last Vital Signs Temp 36.8 C 12/25/17 15:02 Pulse 95 12/25/17 15:02 Resp 22 H 12/25/17 15:02 BP 137/87 12/25/17 15:02 Pulse Ox 93 L 12/25/17 15:35 Weight: 116.301 kg - Exam Quality Assessment: Supplemental Oxygen General: Alert, Oriented, Cooperative. No: Mild Distress HEENT: Conjunctiva Clear, EACs Clear, EOMI, Hearing Intact, Posterior Pharynx Clear, Pupils Equal, Pupils Reactive, TMs Clear, Other (Asymmetric tonsil ( deviated to the left); ). No: Nares Patent (narrowed and congested), Normal Nasal Septum Neck: Supple, Trachea Midline, Full Range of Motion, Lymphadenopathy, Other ( short and thick). No: JVD, Thyromegaly Lungs: Normal Respiratory Effort, Other (distant breath sound) Cardiovascular: Other (distant heart sounds) GI/Abdominal Exam: Normal Bowel Sounds, Soft, Non-Tender, No Organomegaly, No Distention, No Abnormal Bruit, Other (Obese) (Female) Exam: Deferred Rectal (Female) Exam: Deferred Back Exam: Normal Inspection, Decreased Range of Motion Extremities: Normal Inspection, Normal Range of Motion, Non-Tender, No Pedal Edema, Normal Capillary Refill Peripheral Pulses: 3+: Posterior Tibial (L), Posterior Tibial (R), Dorsalis Pedis (L), Dorsalis Pedis (R) Skin: Warm, Dry, Intact Neuro Extensive - Mental Status: Oriented x3, Normal Cognition, Memory Intact Neuro Extensive - Motor, Sensory, Reflexes: CN II-XII Intact, Normal Gait Psychiatric: Alert, Normal Affect, Normal Mood - Patient Data Lab Results Last 24 hrs: Laboratory Results - last 24 hr 12/25/17 12/25/17 12/25/17 Range/Units 12:00 12:00 12:00 WBC 14.42 H (3.98-10.04) K/mm3 RBC 4.26 (3.98-5.22) M/mm3 Hgb 11.6 (11.2-15.7) gm/L Hct 37.2 (34.1-44.9) % MCV 87.3 (79.4-94.8) fl MCH 27.2 (25.6-32.2) pg MCHC 31.2 L (32.2-35.5) g/dl RDW Std Deviation 49.1 H (36.4-46.3) fL Plt Count 208 (182-369) K/mm3 MPV 9.7 (9.4-12.3) fl Neutrophils % (Manual) 87 H (40-60) % Band Neutrophils % 0 (0-10) % Lymphocytes % (Manual) 8 L (20-40) % Atypical Lymphs % 0 % Monocytes % (Manual) 4 (2-10) % Eosinophils % (Manual) 1 (0.7-5.8) % Basophils % (Manual) 0 L (0.1-1.2) Platelet Estimate Adequate RBC Morph Comment Normal D-Dimer, Quantitative 0.45 (0.19-0.50) mg/L Sodium 136 (136-145) mEq/L Potassium 3.8 (3.5-5.1) mEq/L Chloride 99 (98-107) mEq/L Carbon Dioxide 28 (21-32) mEq/L Anion Gap 12.8 (5-15) BUN 21 H (7-18) mg/dL Creatinine 1.2 H (0.55-1.02) mg/dL Est Cr Clr Drug Dosing 39.28 mL/min Estimated GFR (MDRD) 45 (>60) mL/min BUN/Creatinine Ratio 17.5 (14-18) Glucose 194 H (80-115) mg/dL Lactic Acid (0.4-2.0) mmol/L Calcium 9.2 (8.5-10.1) mg/dL Total Bilirubin 0.5 (0.2-1.0) mg/dL AST 36 (15-37) U/L ALT 48 (14-59) U/L Alkaline Phosphatase 77 (46-116) U/L Troponin I < 0.017 (0.00-0.056) ng/mL C-Reactive Protein 3.1 H* (<1.0) mg/dL Total Protein 7.5 (6.4-8.2) g/dl Albumin 3.7 (3.4-5.0) g/dl Globulin 3.8 gm/dL Albumin/Globulin Ratio 1.0 (1-2) Urine Color (Yellow) Urine Appearance (Clear) Urine pH (5.0-8.0) Ur Specific [place] (1.005-1.030) Urine Protein (Negative) Urine Glucose (UA) (Negative) Urine Ketones (Negative) Urine Occult Blood (Negative) Urine Nitrite (Negative) Urine Bilirubin (Negative) Urine Urobilinogen (0.2-1.0) Ur Leukocyte Esterase (Negative) Mycoplasma pneumon IgM Negative (NEGATIVE) 12/25/17 12/25/17 Range/Units 12:12 12:20 WBC (3.98-10.04) K/mm3 RBC (3.98-5.22) M/mm3 Hgb (11.2-15.7) gm/L Hct (34.1-44.9) % MCV (79.4-94.8) fl MCH (25.6-32.2) pg MCHC (32.2-35.5) g/dl RDW Std Deviation (36.4-46.3) fL Plt Count (182-369) K/mm3 MPV (9.4-12.3) fl Neutrophils % (Manual) (40-60) % Band Neutrophils % (0-10) % Lymphocytes % (Manual) (20-40) % Atypical Lymphs % % Monocytes % (Manual) (2-10) % Eosinophils % (Manual) (0.7-5.8) % Basophils % (Manual) (0.1-1.2) Platelet Estimate RBC Morph Comment D-Dimer, Quantitative (0.19-0.50) mg/L Sodium (136-145) mEq/L Potassium (3.5-5.1) mEq/L Chloride (98-107) mEq/L Carbon Dioxide (21-32) mEq/L Anion Gap (5-15) BUN (7-18) mg/dL Creatinine (0.55-1.02) mg/dL Est Cr Clr Drug Dosing mL/min Estimated GFR (MDRD) (>60) mL/min BUN/Creatinine Ratio (14-18) Glucose (80-115) mg/dL Lactic Acid 2.5 H (0.4-2.0) mmol/L Calcium (8.5-10.1) mg/dL Total Bilirubin (0.2-1.0) mg/dL AST (15-37) U/L ALT (14-59) U/L Alkaline Phosphatase (46-116) U/L Troponin I (0.00-0.056) ng/mL C-Reactive Protein (<1.0) mg/dL Total Protein (6.4-8.2) g/dl Albumin (3.4-5.0) g/dl Globulin gm/dL Albumin/Globulin Ratio (1-2) Urine Color Yellow (Yellow) Urine Appearance Clear (Clear) Urine pH 6.0 (5.0-8.0) Ur Specific [place] 1.015 (1.005-1.030) Urine Protein Negative (Negative) Urine Glucose (UA) Negative (Negative) Urine Ketones Negative (Negative) Urine Occult Blood Negative (Negative) Urine Nitrite Negative (Negative) Urine Bilirubin Negative (Negative) Urine Urobilinogen 0.2 (0.2-1.0) Ur Leukocyte Esterase Negative (Negative) Mycoplasma pneumon IgM (NEGATIVE) Result Diagrams: 12/25/17 12:00 12/25/17 12:00 Antoni Results Last 24 hrs: Microbiology 12/25/17 12:30 Group A Streptococcus Rapid Screen - Final Throat Positive Strep A Screen Problem List Initiated/Reviewed/Updated: Yes Orders Last 24hrs: Active Orders 24 hr Category Date Time Status Patient Status [ADT] Routine ADT 12/25/17 14:16 Active Cardiac Monitoring [RC] . DIRECTED Care 12/25/17 12:03 Active EKG Documentation Completion [RC] ASDIRECTED Care 12/25/17 12:03 Active Height and Weight [RC] DAILY Care 12/25/17 15:31 Ordered Intake and Output [RC] QSHIFT Care 12/25/17 15:35 Ordered Oxygen Therapy [RC] ASDIRECTED Care 12/25/17 12:03 Active Oxygen Therapy [RC] PRN Care 12/25/17 15:31 Ordered Pulse Oximetry [RC] PRN Care 12/25/17 15:35 Ordered RT Aerosol Therapy [RC] ASDIRECTED Care 12/25/17 12:05 Active RT Aerosol Therapy [RC] ASDIRECTED Care 12/25/17 15:37 Ordered Up With Assistance [RC] ASDIRECTED Care 12/25/17 15:31 Ordered Up ad [place] [RC] ASDIRECTED Care 12/25/17 15:31 Ordered VTE/DVT Education [RC] PER UNIT ROUTINE Care 12/25/17 15:31 Ordered Vital Signs [RC] Q4H Care 12/25/17 15:31 Ordered Consult to Case Management [CONS] Routine Cons 12/25/17 15:36 Ordered Consult to Janitor Helper [CONS] Routine Cons 12/25/17 15:36 Ordered Consult to Spiritual Care [CONS] Routine Cons 12/25/17 15:36 Ordered Respiratory Care Assess and Treatment [CONS] Routine Cons 12/25/17 15:36 Ordered ADA Diabetic [[place] [employer] Diet] [DIET Diet 12/25/17 Dinner Active ] Chest 1V Frontal [CR] Stat Exams 12/25/17 12:03 Taken BASIC METABOLIC PANEL,BMP [CHEM] AM Lab 12/26/17 05:11 Ordered BASIC METABOLIC PANEL,BMP [CHEM] AM Lab 12/27/17 05:11 Ordered BASIC METABOLIC PANEL,BMP [CHEM] AM Lab 12/28/17 05:11 Ordered BASIC METABOLIC PANEL,BMP [CHEM] AM Lab 12/29/17 05:11 Ordered BASIC METABOLIC PANEL,BMP [CHEM] AM Lab 12/30/17 05:11 Ordered BASIC METABOLIC PANEL,BMP [CHEM] AM Lab 12/31/17 05:11 Ordered C-REACTIVE PROTEIN [CHEM] AM Lab 12/26/17 05:11 Ordered C-REACTIVE PROTEIN [CHEM] AM Lab 12/27/17 05:11 Ordered C-REACTIVE PROTEIN [CHEM] AM Lab 12/28/17 05:11 Ordered C-REACTIVE PROTEIN [CHEM] AM Lab 12/29/17 05:11 Ordered C-REACTIVE PROTEIN [CHEM] AM Lab 12/30/17 05:11 Ordered C-REACTIVE PROTEIN [CHEM] AM Lab 12/31/17 05:11 Ordered CBC WITH AUTO DIFF [HEME] AM Lab 12/26/17 05:11 Ordered CBC WITH AUTO DIFF [HEME] AM Lab 12/27/17 05:11 Ordered CBC WITH AUTO DIFF [HEME] AM Lab 12/28/17 05:11 Ordered CBC WITH AUTO DIFF [HEME] AM Lab 12/29/17 05:11 Ordered CBC WITH AUTO DIFF [HEME] AM Lab 12/30/17 05:11 Ordered CBC WITH AUTO DIFF [HEME] AM Lab 12/31/17 05:11 Ordered CULTURE BLOOD [BC] Stat Lab 12/25/17 12:20 Received CULTURE BLOOD [BC] Stat Lab 12/25/17 12:30 Received CULTURE SPUTUM + SMEAR [RM] Stat Lab 12/25/17 15:36 Ordered MAGNESIUM [CHEM] AM Lab 12/26/17 05:11 Ordered MAGNESIUM [CHEM] AM Lab 12/27/17 05:11 Ordered MAGNESIUM [CHEM] AM Lab 12/28/17 05:11 Ordered MAGNESIUM [CHEM] AM Lab 12/29/17 05:11 Ordered MAGNESIUM [CHEM] AM Lab 12/30/17 05:11 Ordered MAGNESIUM [CHEM] AM Lab 12/31/17 05:11 Ordered STREP SCRN A RAPID W CULT CONF [RM] Stat Lab 12/25/17 12:30 Ordered UA W/MICROSCOPIC [URIN] Stat Lab 12/25/17 12:12 Ordered Acetaminophen [Tylenol] Med 12/25/17 15:31 Ordered 650 mg PO Q4H PRN Acetaminophen/HYDROcodone [[place] 325-5 MG] Med 12/25/17 15:31 Ordered 1 tab PO Q4H PRN Albuterol/Ipratropium [DuoNeb 3.0-0.5 MG/3 ML] Med 12/25/17 15:36 Ordered 3 ml NEB Q4H PRN Allopurinol [Zyloprim] Med 12/26/17 09:00 Active 300 mg PO DAILY Aspirin Med 12/26/17 09:00 Active 81 mg PO DAILY Azithromycin [Zithromax] Med 12/26/17 09:00 Ordered 500 mg IV Q24H Azithromycin [Zithromax] 500 mg Med 12/25/17 15:43 Ordered Sodium Chloride 0.9% [Normal Saline] 250 ml IV ONETIME Bisacodyl [Dulcolax] Med 12/25/17 15:36 Ordered 5 mg PO DAILY PRN Docusate Sodium [Colace] Med 12/25/17 15:36 Ordered 100 mg PO BID PRN Docusate Sodium/Sennosides [Senna Plus] Med 12/25/17 15:36 Ordered 1 tab PO BID PRN Enoxaparin [Lovenox] Med 12/26/17 09:00 Ordered 40 mg SUBCUT DAILY Flunisolide [Nasalide Nasal [place]] Med 12/25/17 21:00 Active 0 ml NASBOTH BID Insulin Degludec Med 12/25/17 21:00 Ordered 60 unit SQ BEDTIME LORazepam [Ativan] Med 12/25/17 15:36 Ordered 0.5 mg IV Q6H PRN Lisinopril [Prinivil] Med 12/26/17 09:00 Active 10 mg PO DAILY Morphine Med 12/25/17 15:31 Ordered 1 mg IVPUSH Q4H PRN Ondansetron [Zofran] Med 12/25/17 15:36 Ordered 4 mg IV Q6H PRN Oxymetazoline [Afrin Original 0.05% Nasal [place]] Med 12/25/17 15:18 Active 0 ml DEE Q12HR PRN Polyethylene Glycol 3350 [MiraLAX] Med 12/25/17 15:36 Ordered 17 gm PO DAILY PRN Promethazine [Phenergan] 12.5 mg Med 12/25/17 15:36 Ordered Sodium Chloride 0.9% [Normal Saline] 50 ml IV Q6H Sertraline [Zoloft] Med 12/26/17 09:00 Active 50 mg PO DAILY Simvastatin [Zocor] Med 12/25/17 21:00 Active 5 mg PO BEDTIME Sodium Chloride 0.9% [Saline Flush] Med 12/25/17 12:03 Active 10 ml FLUSH ASDIRECTED PRN Temazepam [Restoril] Med 12/25/17 15:36 Ordered 7.5 mg PO BEDTIME PRN glipiZIDE [Glucotrol XL] Med 12/25/17 21:00 Active 10 mg PO BID metFORMIN [Glucophage] Med 12/25/17 21:00 Active 1,000 mg PO BID Blood Culture x2 Reflex Set [OM.PC] Stat Oth 12/25/17 12:05 Ordered Peripheral IV Insertion Adult [OM.PC] Routine Oth 12/25/17 12:03 Ordered Resuscitation Status Routine Resus Stat 12/25/17 15:23 Ordered EKG 12 Lead [EK] Stat Ther 12/25/17 12:03 Ordered Medication Orders Acetaminophen (Tylenol) 650 mg PO Q4H PRN PRN Reason: Pain (Mild 1-3)/fever Hydrocodone Bitart/Acetaminophen ([place] 325-5 Mg) 1 tab PO Q4H PRN PRN Reason: Pain (moderate 4-6) Albuterol/Ipratropium (Duoneb 3.0-0.5 Mg/3 Ml) 3 ml NEB Q4H PRN PRN Reason: Shortness Of Breath/wheezing Allopurinol (Zyloprim) 300 mg PO DAILY [place] Aspirin (Aspirin) 81 mg PO DAILY [facility] Azithromycin (Zithromax) 500 mg IV Q24H [place] Bisacodyl (Dulcolax) 5 mg PO DAILY PRN PRN Reason: Constipation Docusate Sodium (Colace) 100 mg PO BID PRN PRN Reason: Constipation Enoxaparin Sodium (Lovenox) 40 mg SUBCUT DAILY [facility] Flunisolide (Nasalide Nasal [place]) 0 ml NASBOTH BID [place] Glipizide (Glucotrol Xl) 10 mg PO BID [place] Promethazine HCl 12.5 mg/ (Sodium Chloride) 50.5 mls @ 100 mls/hr IV Q6H PRN PRN Reason: Nausea/Vomiting Azithromycin 500 mg/ Sodium (Chloride) 250 mls @ 250 mls/hr IV ONETIME ONE Stop: 12/25/17 16:42 Insulin Glargine (Lantus Solostar) 60 units SUBCUT BEDTIME [place] Lisinopril (Prinivil) 10 mg PO DAILY [place] Lorazepam (Ativan) 0.5 mg IV Q6H PRN PRN Reason: Anxiety Metformin HCl (Glucophage) 1,000 mg PO BID [place] Morphine Sulfate (Morphine) 1 mg IVPUSH Q4H PRN PRN Reason: Other Stop: 12/31/17 15:35 Ondansetron HCl (Zofran) 4 mg IV Q6H PRN PRN Reason: Nausea/Vomiting Oxymetazoline HCl (Afrin Original 0.05% Nasal [place]) 0 ml DEE Q12HR PRN PRN Reason: Nasal Congestion Polyethylene Glycol (Miralax) 17 gm PO DAILY PRN PRN Reason: Constipation Senna/Docusate Sodium (Senna Plus) 1 tab PO BID PRN PRN Reason: Constipation Sertraline HCl (Zoloft) 50 mg PO DAILY [place] Simvastatin (Zocor) 5 mg PO BEDTIME [place] Sodium Chloride (Saline Flush) 10 ml FLUSH ASDIRECTED PRN PRN Reason: Keep Vein Open Last Admin: 12/25/17 12:20 Dose: 10 ml Temazepam (Restoril) 7.5 mg PO BEDTIME PRN PRN Reason: Sleep Assessment/Plan Comment:: Assessment/Plan: Acute: Strep Pharyngitis/Sore Throat - Pos on screening - Received one time dose of oral Amoxicillin in ED - Will start IV Azithromycin 500 mg daily to cover both infection and anti- inflammatory agent for COPD Exacerbation - PRN lozenges and or throat spray COPD Exacerbation - 2/2 Non-compliance - She still smokes cigarettes - Risk Factors: COPD, Chronic Respiratory Failure on 3L NC, and Morbid Obesity - IV Steroids, Bronchodilators, Magnesium, Supplemental O2, and RT Care Nicotine Use Disorder - Still smokes cigarettes - Counseled on smoking cessation - Nicotine patch daily Medical Non-Adherence - Counseled on the importance of compliance with medical treatment Chronic: HTN HLD COPD/Asthma Back Pain Gout OA/DJD DM2 with Peripheral Neuropathy Migraines Anxiety Depression Obesity with BMI of 44 Plan: Admit to [facility] Resume Home Meds Routine AM Labs Dietary consult for weigh management Accu-check with ISS QIDAC/HS RT/PT/OT consult SW/CM for d/c planning Code Status: 1
[2017-12-25] MEDS: Insulin Lispro 100 Unit/ML 3 ML KwikPen SUBCUT SCH ×2 (17:01→23:44)
[2017-12-25] MEDS ORDERED: Phenol 1.4% Oral Spray 20 ML Bottle MUCMEM PRN (17:17)
[2017-12-25] MEDS: Albuterol/Ipratropium 3.0-0.5 MG/3 ML Neb Soln NEB PRN (17:30)
[2017-12-25] MEDS: Nicotine 21 MG/24 Hr Patch TRDERM SCH (17:33)
[2017-12-25] MEDS ORDERED: Insulin Glargine,Human Rec. Analog 100 Units/ML 3 ML Pen SUBCUT SCH (21:00)
[2017-12-25] MEDS: glipiZIDE 5 MG Tab.ER PO SCH (22:33)
[2017-12-25] MEDS: Simvastatin 10 MG Tab PO SCH (22:33)
[2017-12-25] MEDS: methylPREDNISolone Sodium Succinate 40 MG/1 ML SDV IVPUSH SCH (22:33)
[2017-12-25] MEDS: metFORMIN 500 MG Tab PO SCH (22:33)
[2017-12-25] MEDS: Acetaminophen/HYDROcodone 325-5 MG Tab PO PRN (22:52)
[2017-12-26] MEDS: Albuterol/Ipratropium 3.0-0.5 MG/3 ML Neb Soln NEB PRN ×4 (02:53→20:58)
[2017-12-26] MEDS: Oxymetazoline 0.05% Nasal Spray 15 ML Bottle NAS PRN (03:25)
[2017-12-26] MEDS: Acetaminophen/HYDROcodone 325-5 MG Tab PO PRN ×2 (03:26→21:31)
[2017-12-26] MEDS: Benzocaine/Cetylpyridinium/Menthol Lozenge MUCMEM PRN ×2 (03:26→10:51)
[2017-12-26] MEDS: methylPREDNISolone Sodium Succinate 40 MG/1 ML SDV IVPUSH SCH ×2 (07:05→14:24)
[2017-12-26] MEDS: Pantoprazole 40 MG Tab.CR PO SCH (07:05)
[2017-12-26] MEDS: Insulin Lispro 100 Unit/ML 3 ML KwikPen SUBCUT SCH ×4 (08:04→21:37)
[2017-12-26] MEDS: Nicotine 21 MG/24 Hr Patch TRDERM SCH (08:06)
[2017-12-26] MEDS: Aspirin 81 MG Tab.Chew PO SCH (08:07)
[2017-12-26] MEDS: Sertraline 50 MG Tab PO SCH (08:07)
[2017-12-26] MEDS: metFORMIN 500 MG Tab PO SCH ×2 (08:07→21:33)
[2017-12-26] MEDS: glipiZIDE 5 MG Tab.ER PO SCH ×2 (08:07→21:34)
[2017-12-26] MEDS: Lisinopril 10 MG Tab PO SCH (08:07)
[2017-12-26] MEDS: Allopurinol 100 MG Tab PO SCH (08:08)
[2017-12-26] MEDS: Hydrochlorothiazide 25 MG Tab PO SCH (08:08)
[2017-12-26] MEDS: Enoxaparin 40 MG/0.4 ML Syringe SUBCUT SCH (08:08)
[2017-12-26] MEDS ORDERED: Azithromycin 500 MG AdvVial IV SCH (09:00)
--- NOTE | 2017-12-26 10:48 | PCM.PN ---
- General Info Date of Service: 12/26/17 Admission Dx/Problem (Free Text): Admission Diagnosis/Problem Admission Diagnosis/Problem COPD, Severe chronic obstructive pulmonary disease Subjective Update: Follow Up Functional Status: Reports: Pain Controlled, Tolerating Diet, Ambulating, Urinating. Denies: New Symptoms - Review of Systems General: Denies: Fever, Weakness, Fatigue, Malaise, Chills HEENT: Reports: No Symptoms, Sore Throat (but better). Denies: Sinus Congestion Pulmonary: Denies: Shortness of Breath Cardiovascular: Denies: Chest Pain, Dyspnea on Exertion, Lightheadedness Gastrointestinal: Denies: Abdominal Pain, Nausea, Vomiting Genitourinary: Reports: No Symptoms Musculoskeletal: Reports: No Symptoms Skin: Denies: Jaundice, Diaphoresis, Pruritis, Rash Neurological: Denies: Confusion, Difficulty Walking, Weakness, Gait Disturbance Psychiatric: Denies: Depression, Anxiety, Agitation, Hallucinations Systems Review Comment:: No overnight or acute issues. She feels much better. She has no complaints. Her glucose is not well controlled. - Patient Data Vitals - Most Recent: Last Vital Signs Temp 36.4 C 12/26/17 03:24 Pulse 83 12/26/17 07:59 Resp 26 H 12/26/17 07:59 BP 138/86 12/26/17 08:07 Pulse Ox 93 L 12/26/17 09:30 Weight - Most Recent: 116.074 kg I&O - Last 24 Hours: Intake & Output 12/25/17 12/26/17 12/26/17 22:59 06:59 14:59 Intake Total 1000 800 360 Output Total 900 Balance 1000 -100 360 Lab Results Last 24 Hours: Laboratory Results - last 24 hr 12/25/17 12/25/17 12/25/17 Range/Units 12:00 12:00 12:00 WBC 14.42 H (3.98-10.04) K/mm3 RBC 4.26 (3.98-5.22) M/mm3 Hgb 11.6 (11.2-15.7) gm/L Hct 37.2 (34.1-44.9) % MCV 87.3 (79.4-94.8) fl MCH 27.2 (25.6-32.2) pg MCHC 31.2 L (32.2-35.5) g/dl RDW Std Deviation 49.1 H (36.4-46.3) fL Plt Count 208 (182-369) K/mm3 MPV 9.7 (9.4-12.3) fl Neut % (Auto) (34.0-71.1) % Lymph % (Auto) (19.3-51.7) % [place] % (Auto) (4.7-12.5) % Eos % (Auto) (0.7-5.8) Baso % (Auto) (0.1-1.2) % Neut # (Auto) (1.56-6.13) K/mm3 Lymph # (Auto) (1.18-3.74) K/mm3 [place] # (Auto) (0.24-0.36) K/mm3 Eos # (Auto) (0.04-0.36) K/mm3 Baso # (Auto) (0.01-0.08) K/mm3 Neutrophils % (Manual) 87 H (40-60) % Band Neutrophils % 0 (0-10) % Lymphocytes % (Manual) 8 L (20-40) % Atypical Lymphs % 0 % Monocytes % (Manual) 4 (2-10) % Eosinophils % (Manual) 1 (0.7-5.8) % Basophils % (Manual) 0 L (0.1-1.2) Manual Slide Review Platelet Estimate Adequate RBC Morph Comment Normal D-Dimer, Quantitative 0.45 (0.19-0.50) mg/L Sodium 136 (136-145) mEq/L Potassium 3.8 (3.5-5.1) mEq/L Chloride 99 (98-107) mEq/L Carbon Dioxide 28 (21-32) mEq/L Anion Gap 12.8 (5-15) BUN 21 H (7-18) mg/dL Creatinine 1.2 H (0.55-1.02) mg/dL Est Cr Clr Drug Dosing 39.28 mL/min Estimated GFR (MDRD) 45 (>60) mL/min BUN/Creatinine Ratio 17.5 (14-18) Glucose 194 H (80-115) mg/dL POC Glucose (80-115) mg/dL Lactic Acid (0.4-2.0) mmol/L Calcium 9.2 (8.5-10.1) mg/dL Magnesium (1.8-2.4) mg/dl Total Bilirubin 0.5 (0.2-1.0) mg/dL AST 36 (15-37) U/L ALT 48 (14-59) U/L Alkaline Phosphatase 77 (46-116) U/L Troponin I < 0.017 (0.00-0.056) ng/mL C-Reactive Protein 3.1 H* (<1.0) mg/dL Total Protein 7.5 (6.4-8.2) g/dl Albumin 3.7 (3.4-5.0) g/dl Globulin 3.8 gm/dL Albumin/Globulin Ratio 1.0 (1-2) Urine Color (Yellow) Urine Appearance (Clear) Urine pH (5.0-8.0) Ur Specific [place] (1.005-1.030) Urine Protein (Negative) Urine Glucose (UA) (Negative) Urine Ketones (Negative) Urine Occult Blood (Negative) Urine Nitrite (Negative) Urine Bilirubin (Negative) Urine Urobilinogen (0.2-1.0) Ur Leukocyte Esterase (Negative) Mycoplasma pneumon IgM Negative (NEGATIVE) 12/25/17 12/25/17 12/25/17 Range/Units 12:12 12:20 17:01 WBC (3.98-10.04) K/mm3 RBC (3.98-5.22) M/mm3 Hgb (11.2-15.7) gm/L Hct (34.1-44.9) % MCV (79.4-94.8) fl MCH (25.6-32.2) pg MCHC (32.2-35.5) g/dl RDW Std Deviation (36.4-46.3) fL Plt Count (182-369) K/mm3 MPV (9.4-12.3) fl Neut % (Auto) (34.0-71.1) % Lymph % (Auto) (19.3-51.7) % [place] % (Auto) (4.7-12.5) % Eos % (Auto) (0.7-5.8) Baso % (Auto) (0.1-1.2) % Neut # (Auto) (1.56-6.13) K/mm3 Lymph # (Auto) (1.18-3.74) K/mm3 [place] # (Auto) (0.24-0.36) K/mm3 Eos # (Auto) (0.04-0.36) K/mm3 Baso # (Auto) (0.01-0.08) K/mm3 Neutrophils % (Manual) (40-60) % Band Neutrophils % (0-10) % Lymphocytes % (Manual) (20-40) % Atypical Lymphs % % Monocytes % (Manual) (2-10) % Eosinophils % (Manual) (0.7-5.8) % Basophils % (Manual) (0.1-1.2) Manual Slide Review Platelet Estimate RBC Morph Comment D-Dimer, Quantitative (0.19-0.50) mg/L Sodium (136-145) mEq/L Potassium (3.5-5.1) mEq/L Chloride (98-107) mEq/L Carbon Dioxide (21-32) mEq/L Anion Gap (5-15) BUN (7-18) mg/dL Creatinine (0.55-1.02) mg/dL Est Cr Clr Drug Dosing mL/min Estimated GFR (MDRD) (>60) mL/min BUN/Creatinine Ratio (14-18) Glucose (80-115) mg/dL POC Glucose 332 H (80-115) mg/dL Lactic Acid 2.5 H (0.4-2.0) mmol/L Calcium (8.5-10.1) mg/dL Magnesium (1.8-2.4) mg/dl Total Bilirubin (0.2-1.0) mg/dL AST (15-37) U/L ALT (14-59) U/L Alkaline Phosphatase (46-116) U/L Troponin I (0.00-0.056) ng/mL C-Reactive Protein (<1.0) mg/dL Total Protein (6.4-8.2) g/dl Albumin (3.4-5.0) g/dl Globulin gm/dL Albumin/Globulin Ratio (1-2) Urine Color Yellow (Yellow) Urine Appearance Clear (Clear) Urine pH 6.0 (5.0-8.0) Ur Specific [place] 1.015 (1.005-1.030) Urine Protein Negative (Negative) Urine Glucose (UA) Negative (Negative) Urine Ketones Negative (Negative) Urine Occult Blood Negative (Negative) Urine Nitrite Negative (Negative) Urine Bilirubin Negative (Negative) Urine Urobilinogen 0.2 (0.2-1.0) Ur Leukocyte Esterase Negative (Negative) Mycoplasma pneumon IgM (NEGATIVE) 12/25/17 12/26/17 12/26/17 Range/Units 22:45 01:35 06:15 WBC 7.81 (3.98-10.04) K/mm3 RBC 3.96 L (3.98-5.22) M/mm3 Hgb 10.9 L (11.2-15.7) gm/L Hct 34.7 (34.1-44.9) % MCV 87.6 (79.4-94.8) fl MCH 27.5 (25.6-32.2) pg MCHC 31.4 L (32.2-35.5) g/dl RDW Std Deviation 48.2 H (36.4-46.3) fL Plt Count 175 L (182-369) K/mm3 MPV 11.0 (9.4-12.3) fl Neut % (Auto) 89.6 H (34.0-71.1) % Lymph % (Auto) 7.2 L (19.3-51.7) % [place] % (Auto) 2.7 L (4.7-12.5) % Eos % (Auto) 0 L (0.7-5.8) Baso % (Auto) 0.0 L (0.1-1.2) % Neut # (Auto) 7.00 H (1.56-6.13) K/mm3 Lymph # (Auto) 0.56 L (1.18-3.74) K/mm3 [place] # (Auto) 0.21 L (0.24-0.36) K/mm3 Eos # (Auto) 0.00 L (0.04-0.36) K/mm3 Baso # (Auto) 0.00 L (0.01-0.08) K/mm3 Neutrophils % (Manual) (40-60) % Band Neutrophils % (0-10) % Lymphocytes % (Manual) (20-40) % Atypical Lymphs % % Monocytes % (Manual) (2-10) % Eosinophils % (Manual) (0.7-5.8) % Basophils % (Manual) (0.1-1.2) Manual Slide Review Abnormal smear Platelet Estimate RBC Morph Comment D-Dimer, Quantitative (0.19-0.50) mg/L Sodium (136-145) mEq/L Potassium (3.5-5.1) mEq/L Chloride (98-107) mEq/L Carbon Dioxide (21-32) mEq/L Anion Gap (5-15) BUN (7-18) mg/dL Creatinine (0.55-1.02) mg/dL Est Cr Clr Drug Dosing mL/min Estimated GFR (MDRD) (>60) mL/min BUN/Creatinine Ratio (14-18) Glucose 422 H (80-115) mg/dL POC Glucose 345 H (80-115) mg/dL Lactic Acid (0.4-2.0) mmol/L Calcium (8.5-10.1) mg/dL Magnesium (1.8-2.4) mg/dl Total Bilirubin (0.2-1.0) mg/dL AST (15-37) U/L ALT (14-59) U/L Alkaline Phosphatase (46-116) U/L Troponin I (0.00-0.056) ng/mL C-Reactive Protein (<1.0) mg/dL Total Protein (6.4-8.2) g/dl Albumin (3.4-5.0) g/dl Globulin gm/dL Albumin/Globulin Ratio (1-2) Urine Color (Yellow) Urine Appearance (Clear) Urine pH (5.0-8.0) Ur Specific [place] (1.005-1.030) Urine Protein (Negative) Urine Glucose (UA) (Negative) Urine Ketones (Negative) Urine Occult Blood (Negative) Urine Nitrite (Negative) Urine Bilirubin (Negative) Urine Urobilinogen (0.2-1.0) Ur Leukocyte Esterase (Negative) Mycoplasma pneumon IgM (NEGATIVE) 12/26/17 12/26/17 Range/Units 06:15 06:20 WBC (3.98-10.04) K/mm3 RBC (3.98-5.22) M/mm3 Hgb (11.2-15.7) gm/L Hct (34.1-44.9) % MCV (79.4-94.8) fl MCH (25.6-32.2) pg MCHC (32.2-35.5) g/dl RDW Std Deviation (36.4-46.3) fL Plt Count (182-369) K/mm3 MPV (9.4-12.3) fl Neut % (Auto) (34.0-71.1) % Lymph % (Auto) (19.3-51.7) % [place] % (Auto) (4.7-12.5) % Eos % (Auto) (0.7-5.8) Baso % (Auto) (0.1-1.2) % Neut # (Auto) (1.56-6.13) K/mm3 Lymph # (Auto) (1.18-3.74) K/mm3 [place] # (Auto) (0.24-0.36) K/mm3 Eos # (Auto) (0.04-0.36) K/mm3 Baso # (Auto) (0.01-0.08) K/mm3 Neutrophils % (Manual) (40-60) % Band Neutrophils % (0-10) % Lymphocytes % (Manual) (20-40) % Atypical Lymphs % % Monocytes % (Manual) (2-10) % Eosinophils % (Manual) (0.7-5.8) % Basophils % (Manual) (0.1-1.2) Manual Slide Review Platelet Estimate RBC Morph Comment D-Dimer, Quantitative (0.19-0.50) mg/L Sodium 136 (136-145) mEq/L Potassium 4.3 (3.5-5.1) mEq/L Chloride 101 (98-107) mEq/L Carbon Dioxide 22 (21-32) mEq/L Anion Gap 17.3 H (5-15) BUN 27 H (7-18) mg/dL Creatinine 1.3 H (0.55-1.02) mg/dL Est Cr Clr Drug Dosing 36.26 mL/min Estimated GFR (MDRD) 41 (>60) mL/min BUN/Creatinine Ratio 20.8 H (14-18) Glucose 356 H (80-115) mg/dL POC Glucose 326 H (80-115) mg/dL Lactic Acid (0.4-2.0) mmol/L Calcium 8.8 (8.5-10.1) mg/dL Magnesium 4.6 H (1.8-2.4) mg/dl Total Bilirubin (0.2-1.0) mg/dL AST (15-37) U/L ALT (14-59) U/L Alkaline Phosphatase (46-116) U/L Troponin I (0.00-0.056) ng/mL C-Reactive Protein 4.6 H* (<1.0) mg/dL Total Protein (6.4-8.2) g/dl Albumin (3.4-5.0) g/dl Globulin gm/dL Albumin/Globulin Ratio (1-2) Urine Color (Yellow) Urine Appearance (Clear) Urine pH (5.0-8.0) Ur Specific [place] (1.005-1.030) Urine Protein (Negative) Urine Glucose (UA) (Negative) Urine Ketones (Negative) Urine Occult Blood (Negative) Urine Nitrite (Negative) Urine Bilirubin (Negative) Urine Urobilinogen (0.2-1.0) Ur Leukocyte Esterase (Negative) Mycoplasma pneumon IgM (NEGATIVE) Antoni Results Last 24 Hours: Microbiology 12/25/17 12:20 Anaerobic Blood Culture - Final Blood - Venous - Lab Draw 12/25/17 12:30 Group A Streptococcus Rapid Screen - Final Throat Positive Strep A Screen Med Orders - Current: Current Medications Acetaminophen (Tylenol) 650 mg PO Q4H PRN PRN Reason: Pain (Mild 1-3)/fever Hydrocodone Bitart/Acetaminophen ([place] 325-5 Mg) 1 tab PO Q4H PRN PRN Reason: Pain (moderate 4-6) Last Admin: 12/26/17 03:26 Dose: 1 tab Albuterol/Ipratropium (Duoneb 3.0-0.5 Mg/3 Ml) 3 ml NEB Q4H PRN PRN Reason: Shortness Of Breath/wheezing Last Admin: 12/26/17 09:29 Dose: 3 ml Allopurinol (Zyloprim) 300 mg PO DAILY [facility] Last Admin: 12/26/17 08:08 Dose: 300 mg Amoxicillin (Amoxil) 500 mg PO Q12H [facility] PRN Reason: Nausea/Vomiting Aspirin (Aspirin) 81 mg PO DAILY [facility] Last Admin: 12/26/17 08:07 Dose: 81 mg Benzocaine/Menthol (Cepacol Sore Throat) 1 lozenge MUCMEM Q4H PRN PRN Reason: Sore Throat Last Admin: 12/26/17 03:26 Dose: 1 lozenge Bisacodyl (Dulcolax) 5 mg PO DAILY PRN PRN Reason: Constipation Cholecalciferol (Vitamin D3) 5,000 unit PO Th [facility] Docusate Sodium (Colace) 100 mg PO BID PRN PRN Reason: Constipation Enoxaparin Sodium (Lovenox) 40 mg SUBCUT DAILY [facility] Last Admin: 12/26/17 08:08 Dose: 40 mg Flunisolide (Nasalide Nasal [place]) 0 ml NASBOTH BID [facility] Last Admin: 12/26/17 08:05 Dose: 1 spray Glipizide (Glucotrol Xl) 10 mg PO BID [facility] Last Admin: 12/26/17 08:07 Dose: 10 mg Hydrochlorothiazide (Hydrochlorothiazide) 25 mg PO DAILY [facility] Last Admin: 12/26/17 08:08 Dose: 25 mg Promethazine HCl 12.5 mg/ (Sodium Chloride) 50.5 mls @ 100 mls/hr IV Q6H PRN PRN Reason: Nausea/Vomiting Azithromycin 500 mg/ Sodium (Chloride) 250 mls @ 125 mls/hr IV DAILY@1600 [facility] Insulin Glargine (Lantus Solostar) 60 units SUBCUT BEDTIME [facility] Last Admin: 12/25/17 23:43 Dose: 60 units Insulin Human Lispro (Humalog) 0 unit SUBCUT QIDACANDBED [facility]; Protocol Last Admin: 12/26/17 08:04 Dose: 12 units Lisinopril (Prinivil) 10 mg PO DAILY [facility] Last Admin: 12/26/17 08:07 Dose: 10 mg Lorazepam (Ativan) 0.5 mg IV Q6H PRN PRN Reason: Anxiety Metformin HCl (Glucophage) 1,000 mg PO BID [facility] Last Admin: 12/26/17 08:07 Dose: 1,000 mg Methylprednisolone Sodium Succinate (Solu-Medrol) 60 mg IVPUSH TID@2100,0700, 1400 [facility] Last Admin: 12/26/17 07:05 Dose: 60 mg Miscellaneous Information (Remove Patch) 1 ea TRDERM DAILY [facility] Last Admin: 12/26/17 08:08 Dose: 1 ea Morphine Sulfate (Morphine) 1 mg IVPUSH Q4H PRN PRN Reason: Other Stop: 12/31/17 15:35 Nicotine (Habitrol) 21 mg TRDERM DAILY [facility] Last Admin: 12/26/17 08:06 Dose: 21 mg Ondansetron HCl (Zofran) 4 mg IV Q6H PRN PRN Reason: Nausea/Vomiting Oxymetazoline HCl (Afrin Original 0.05% Nasal [place]) 0 ml DEE Q12HR PRN PRN Reason: Nasal Congestion Last Admin: 12/26/17 03:25 Dose: 1 spray Pantoprazole Sodium (Protonix) 40 mg PO DAILY@0700 [facility] Last Admin: 12/26/17 07:05 Dose: 40 mg Phenol/Menthol (Chloraseptic) 15 ml MUCMEM Q2H PRN PRN Reason: Sore Throat Polyethylene Glycol (Miralax) 17 gm PO DAILY PRN PRN Reason: Constipation Senna/Docusate Sodium (Senna Plus) 1 tab PO BID PRN PRN Reason: Constipation Sertraline HCl (Zoloft) 50 mg PO DAILY [facility] Last Admin: 12/26/17 08:07 Dose: 50 mg Simvastatin (Zocor) 5 mg PO BEDTIME [facility] Last Admin: 12/25/17 22:33 Dose: 5 mg Sodium Chloride (Saline Flush) 10 ml FLUSH ASDIRECTED PRN PRN Reason: Keep Vein Open Last Admin: 12/25/17 12:20 Dose: 10 ml Temazepam (Restoril) 7.5 mg PO BEDTIME PRN PRN Reason: Sleep Discontinued Medications Albuterol/Ipratropium (Duoneb 3.0-0.5 Mg/3 Ml) Confirm Administered Dose 3 ml .ROUTE .STK-MED ONE Stop: 12/25/17 11:57 Last Admin: 12/25/17 12:04 Dose: 3 ml Albuterol/Ipratropium (Duoneb 3.0-0.5 Mg/3 Ml) 3 ml NEB ONETIME ONE Stop: 12/25/17 12:06 Last Admin: 12/25/17 12:07 Dose: Not Given Amoxicillin (Amoxil) 500 mg PO ONETIME ONE Stop: 12/25/17 13:36 Last Admin: 12/25/17 14:03 Dose: 500 mg Azithromycin (Zithromax) 500 mg IV Q24H [facility] Sodium Chloride (Normal Saline) 1,000 mls @ 999 mls/hr IV ONETIME ONE Stop: 12/25/17 14:28 Last Admin: 12/25/17 13:46 Dose: 999 mls/hr Azithromycin 500 mg/ Sodium (Chloride) 250 mls @ 250 mls/hr IV ONETIME ONE Stop: 12/25/17 16:42 Last Admin: 12/25/17 16:16 Dose: 250 mls/hr Ketorolac Tromethamine (Toradol) 30 mg IVPUSH ONETIME ONE Stop: 12/25/17 13:36 Last Admin: 12/25/17 14:00 Dose: 30 mg Methylprednisolone Sodium Succinate (Solu-Medrol) 125 mg IVPUSH ONETIME ONE Stop: 12/25/17 12:04 Last Admin: 12/25/17 12:27 Dose: 125 mg - Exam Quality Assessment: Supplemental Oxygen General: Alert, Oriented, Cooperative, No Acute Distress HEENT: Pupils Equal, Pupils Reactive, EOMI, Mucous Membr. Moist/[place] Neck: Supple, Trachea Midline, No JVD, Other (short and thick) Lungs: Normal Respiratory Effort, Decreased Breath Sounds Cardiovascular: Regular Rate, Regular Rhythm GI/Abdominal Exam: Normal Bowel Sounds, Soft, Non-Tender, No Organomegaly, No Distention, No Abnormal Bruit (Female) Exam: Deferred Back Exam: Normal Inspection, Decreased Range of Motion Extremities: Normal Inspection, Normal Range of Motion, Non-Tender, No Pedal Edema, Normal Capillary Refill Peripheral Pulses: 2+: Dorsalis Pedis (L), Dorsalis Pedis (R) Skin: Warm, Dry, Intact Neurological: No New Focal Deficit Psy/Mental Status: Alert, Normal Affect, Normal Mood - Problem List Review Problem List Initiated/Reviewed/Updated: Yes - My Orders Last 24 Hours: My Active Orders 12/25/17 15:18 Oxymetazoline [Afrin Original 0.05% Nasal [place]] 0 ml DEE Q12HR PRN 12/25/17 15:23 Resuscitation Status Routine 12/25/17 15:31 Height and Weight [RC] 04 Oxygen Therapy [RC] PRN Up With Assistance [RC] ASDIRECTED Up ad [place] [RC] ASDIRECTED VTE/DVT Education [RC] 10,22 Vital Signs [RC] Q4HR Acetaminophen [Tylenol] 650 mg PO Q4H PRN Acetaminophen/HYDROcodone [[place] 325-5 MG] 1 tab PO Q4H PRN Morphine 1 mg IVPUSH Q4H PRN 12/25/17 15:35 Intake and Output [RC] 04,16 Pulse Oximetry [RC] PRN 12/25/17 15:36 Consult to Case Management [CONS] Routine Consult to Social Worker [CONS] Routine Consult to Spiritual Care [CONS] Routine Respiratory Care Assess and Treatment [CONS] Routine Albuterol/Ipratropium [DuoNeb 3.0-0.5 MG/3 ML] 3 ml NEB Q4H PRN Bisacodyl [Dulcolax] 5 mg PO DAILY PRN Docusate Sodium [Colace] 100 mg PO BID PRN Docusate Sodium/Sennosides [Senna Plus] 1 tab PO BID PRN LORazepam [Ativan] 0.5 mg IV Q6H PRN Ondansetron [Zofran] 4 mg IV Q6H PRN Polyethylene Glycol 3350 [MiraLAX] 17 gm PO DAILY PRN Promethazine [Phenergan] 12.5 mg Sodium Chloride 0.9% [Normal Saline] 50 ml IV Q6H Temazepam [Restoril] 7.5 mg PO BEDTIME PRN 12/25/17 15:37 RT Aerosol Therapy [RC] ASDIRECTED 12/25/17 15:47 Accu Check [Blood Glucose Check, Bedside] [RC] QIDACANDBED 12/25/17 17:00 Insulin Lispro [HumaLOG] See Protocol SUBCUT QIDACANDBED 12/25/17 17:14 Consult to Occupational Therapy [OT Evaluation and Treatment] [CONS] Routine PT Evaluation and Treatment [CONS] Routine 12/25/17 17:15 Nicotine [Habitrol] 21 mg TRDERM DAILY 12/25/17 17:16 Benzocaine/Cetylpyrd/Menthol [Cepacol Sore Throat] 1 lozenge MUCMEM Q4H PRN 12/25/17 17:17 Phenol [Chloraseptic] 15 ml MUCMEM Q2H PRN 12/25/17 21:00 Flunisolide [Nasalide Nasal [place]] 0 ml NASBOTH BID Insulin Glarg,Human.Rec.Analog [LantUS Solostar] 60 units SUBCUT BEDTIME Simvastatin [Zocor] 5 mg PO BEDTIME glipiZIDE [Glucotrol XL] 10 mg PO BID metFORMIN [Glucophage] 1,000 mg PO BID methylPREDNISolone Sod Succ [Solu-MEDROL] 60 mg IVPUSH TID@2100,0700,1400 12/25/17 23:00 CULTURE SPUTUM + SMEAR [RM] Stat 12/25/17 Dinner ADA Diabetic [[place] [employer] Diet] [DIET] 12/26/17 07:00 Pantoprazole [ProTONIX] 40 mg PO DAILY@0700 12/26/17 09:00 Allopurinol [Zyloprim] 300 mg PO DAILY Aspirin 81 mg PO DAILY Enoxaparin [Lovenox] 40 mg SUBCUT DAILY Lisinopril [Prinivil] 10 mg PO DAILY Remove Patch 1 ea TRDERM DAILY Sertraline [Zoloft] 50 mg PO DAILY hydroCHLOROthiazide 25 mg PO DAILY 12/26/17 11:00 Amoxicillin [Amoxil] 500 mg PO Q12H 12/26/17 16:00 Azithromycin [Zithromax] 500 mg Sodium Chloride 0.9% [Normal Saline] 250 ml IV DAILY@1600 12/27/17 05:11 BASIC METABOLIC PANEL,BMP [CHEM] AM C-REACTIVE PROTEIN [CHEM] AM CBC WITH AUTO DIFF [HEME] AM MAGNESIUM [CHEM] AM 12/27/17 09:00 Cholecalciferol (Vitamin D3) [Vitamin D3] 5,000 unit PO Th 12/28/17 05:11 BASIC METABOLIC PANEL,BMP [CHEM] AM C-REACTIVE PROTEIN [CHEM] AM CBC WITH AUTO DIFF [HEME] AM MAGNESIUM [CHEM] AM 12/29/17 05:11 BASIC METABOLIC PANEL,BMP [CHEM] AM C-REACTIVE PROTEIN [CHEM] AM CBC WITH AUTO DIFF [HEME] AM MAGNESIUM [CHEM] AM 12/30/17 05:11 BASIC METABOLIC PANEL,BMP [CHEM] AM C-REACTIVE PROTEIN [CHEM] AM CBC WITH AUTO DIFF [HEME] AM MAGNESIUM [CHEM] AM 12/31/17 05:11 BASIC METABOLIC PANEL,BMP [CHEM] AM C-REACTIVE PROTEIN [CHEM] AM CBC WITH AUTO DIFF [HEME] AM MAGNESIUM [CHEM] AM - Plan Plan:: Assessment/Plan: Acute: Strep Pharyngitis/Sore Throat, Improved - Pos on screening - Received one time dose of oral Amoxicillin in ED; per pharmacy will resume it due to resistance with Macrolides - PRN lozenges and or throat spray COPD Exacerbation, Improved - 2/2 Non-compliance - She still smokes cigarettes - Risk Factors: COPD, Chronic Respiratory Failure on 3L NC, and Morbid Obesity - Continue Steroids but now in oral dose, Bronchodilators, Magnesium, Supplemental O2, and RT Care - Continue IV Azithromycin 500 mg daily for anti-inflammatory agent for COPD Exacerbation Hyperglycemia with DM2 with Peripheral Neuropathy - BS in the 300s--> not well controlled - She is on Metformin 1000 mg po BID, Glipizide 10 mg po BID and Lantus 60 units SubQ QHS and high dose ISS - She is on IV steroids--> switched to oral dosing; increased lantus to 70 units SubQ QHS - Consider SGLT2 and GLP-I Inhibitors-will offer to patient; unsure if her insurance covers it Nicotine Use Disorder - Still smokes cigarettes - Counseled on smoking cessation - Nicotine patch daily Medical Non-Adherence - Counseled on the importance of compliance with medical treatment Chronic: HTN HLD COPD/Asthma Back Pain Gout OA/DJD Migraines Anxiety Depression Obesity with BMI of 44 Plan: She is clinically stable Continue current treatment Routine AM Labs Dietary consult for weigh management Accu-check with ISS QIDAC/HS Continue RT/PT/OT SW/CM for d/c planning Code Status: 1
[2017-12-26] MEDS: Amoxicillin 500 MG Cap PO SCH ×2 (10:59→22:04)
[2017-12-26] MEDS ORDERED: Amoxicillin 500 MG Cap PO SCH (11:00)
[2017-12-26] MEDS: Acetaminophen 325 MG Tab PO PRN (12:34)
[2017-12-26] MEDS: LORazepam 2 MG/ML SDV IV PRN (14:22)
[2017-12-26] MEDS: Azithromycin 500 MG in Sodium Chloride 0.9% 250 ML IV SCH (15:27)
[2017-12-26] MEDS: Sodium Chloride 0.9% 1,000 ML IV SCH (17:35)
[2017-12-26] MEDS: Insulin Glargine,Human Rec. Analog 100 Units/ML 3 ML Pen SUBCUT SCH (21:34)
[2017-12-26] MEDS: Temazepam 7.5 MG Cap PO PRN (21:34)
[2017-12-26] MEDS: Simvastatin 10 MG Tab PO SCH (21:42)
[2017-12-27] MEDS: Sodium Chloride 0.9% 1,000 ML IV SCH (04:16)
[2017-12-27] MEDS: Pantoprazole 40 MG Tab.CR PO SCH (06:03)
[2017-12-27] MEDS: predniSONE 20 MG Tab PO SCH (06:03)
[2017-12-27] MEDS: Oxymetazoline 0.05% Nasal Spray 15 ML Bottle NAS PRN ×2 (06:04→20:25)
[2017-12-27] MEDS: Acetaminophen 325 MG Tab PO PRN (06:15)
[2017-12-27] MEDS: Insulin Lispro 100 Unit/ML 3 ML KwikPen SUBCUT SCH ×4 (08:12→21:36)
[2017-12-27] MEDS: Aspirin 81 MG Tab.Chew PO SCH (08:13)
[2017-12-27] MEDS: glipiZIDE 5 MG Tab.ER PO SCH ×2 (08:14→20:24)
[2017-12-27] MEDS: Sertraline 50 MG Tab PO SCH (08:14)
[2017-12-27] MEDS: Allopurinol 100 MG Tab PO SCH (08:14)
[2017-12-27] MEDS: Hydrochlorothiazide 25 MG Tab PO SCH (08:14)
[2017-12-27] MEDS: metFORMIN 500 MG Tab PO SCH ×2 (08:14→20:24)
[2017-12-27] MEDS: Lisinopril 10 MG Tab PO SCH (08:14)
[2017-12-27] MEDS: Nicotine 21 MG/24 Hr Patch TRDERM SCH (08:15)
[2017-12-27] MEDS: Enoxaparin 40 MG/0.4 ML Syringe SUBCUT SCH (08:18)
[2017-12-27] MEDS ORDERED: Cholecalciferol (Vitamin D3) 5,000 UNIT Tab PO SCH (09:00)
[2017-12-27] MEDS: Albuterol/Ipratropium 3.0-0.5 MG/3 ML Neb Soln NEB PRN ×3 (09:07→22:28)
[2017-12-27] MEDS ORDERED: Bumetanide 1 MG/4 ML MDV IVPUSH ONE (09:30)
[2017-12-27] MEDS ORDERED: Morphine 2 MG/ML Syringe IVPUSH ONE (09:32)
--- NOTE | 2017-12-27 10:08 | CR ---
Chest: Portable view of the chest was obtained. Comparison: Prior chest x-ray of 07/31/17. Heart size and mediastinum are within normal limits for portable technique. Lungs are clear without acute parenchymal change. Bony structures are unremarkable. Impression: 1. Nothing acute is seen on portable chest x-ray. Diagnostic code #1
--- NOTE | 2017-12-27 11:17 | CR ---
Chest: Portable view of the chest was obtained. Comparison: Previous chest x-ray of 12/25/17. Heart size and mediastinum are within normal limits for portable technique. Lungs are clear with no acute parenchymal change. Bony structures are unremarkable. Impression: 1. Nothing acute is seen on portable chest x-ray. Diagnostic code #1
[2017-12-27] MEDS: Amoxicillin 500 MG Cap PO SCH ×2 (12:04→22:33)
[2017-12-27] MEDS: Azithromycin 500 MG in Sodium Chloride 0.9% 250 ML IV SCH (15:17)
[2017-12-27] MEDS: Simvastatin 10 MG Tab PO SCH (20:24)
[2017-12-27] MEDS: Insulin Glargine,Human Rec. Analog 100 Units/ML 3 ML Pen SUBCUT SCH (20:25)
[2017-12-27] MEDS: Acetaminophen/HYDROcodone 325-5 MG Tab PO PRN (21:15)
[2017-12-27] MEDS: Temazepam 7.5 MG Cap PO PRN (21:15)
[2017-12-27] MEDS: Benzocaine/Cetylpyridinium/Menthol Lozenge MUCMEM PRN (22:33)
[2017-12-27] MEDS: LORazepam 2 MG/ML SDV IV PRN (23:52)
[2017-12-28] MEDS: Morphine 2 MG/ML Syringe IVPUSH PRN (03:56)
[2017-12-28] MEDS: Albuterol/Ipratropium 3.0-0.5 MG/3 ML Neb Soln NEB PRN ×2 (04:15→09:38)
[2017-12-28] MEDS: Pantoprazole 40 MG Tab.CR PO SCH (06:35)
[2017-12-28] MEDS: predniSONE 20 MG Tab PO SCH (06:35)
[2017-12-28] MEDS: Insulin Lispro 100 Unit/ML 3 ML KwikPen SUBCUT SCH ×4 (07:50→22:12)
[2017-12-28] MEDS: Enoxaparin 40 MG/0.4 ML Syringe SUBCUT SCH (09:15)
[2017-12-28] MEDS: Lisinopril 10 MG Tab PO SCH (09:16)
[2017-12-28] MEDS: Allopurinol 100 MG Tab PO SCH (09:16)
[2017-12-28] MEDS: glipiZIDE 5 MG Tab.ER PO SCH ×2 (09:16→22:06)
[2017-12-28] MEDS: metFORMIN 500 MG Tab PO SCH ×2 (09:16→22:08)
[2017-12-28] MEDS: Hydrochlorothiazide 25 MG Tab PO SCH (09:16)
[2017-12-28] MEDS: Sertraline 50 MG Tab PO SCH (09:16)
[2017-12-28] MEDS: Aspirin 81 MG Tab.Chew PO SCH (09:17)
[2017-12-28] MEDS: Nicotine 21 MG/24 Hr Patch TRDERM SCH (09:17)
[2017-12-28] MEDS: Amoxicillin 500 MG Cap PO SCH ×2 (11:56→22:06)
[2017-12-28] MEDS: Albuterol/Ipratropium 3.0-0.5 MG/3 ML Neb Soln NEB SCH ×2 (13:48→20:17)
[2017-12-28] MEDS: Acetaminophen/HYDROcodone 325-5 MG Tab PO PRN ×2 (14:11→22:13)
--- NOTE | 2017-12-28 15:03 | PCM.PN ---
- General Info Date of Service: 12/28/17 Admission Dx/Problem (Free Text): Admission Diagnosis/Problem Admission Diagnosis/Problem COPD, Severe chronic obstructive pulmonary disease Subjective Update: Follow Up Functional Status: Reports: Pain Controlled, Tolerating Diet, Ambulating, Urinating - Review of Systems General: Denies: Fever, Weakness, Fatigue, Malaise, Chills HEENT: Reports: No Symptoms Pulmonary: Reports: Shortness of Breath, Cough, Sputum, Wheezing Cardiovascular: Denies: Chest Pain, Dyspnea on Exertion, Lightheadedness Gastrointestinal: Denies: Abdominal Pain, Decreased Appetite, Nausea, Vomiting Genitourinary: Reports: No Symptoms. Denies: Dysuria Skin: Denies: Cyanosis Neurological: Reports: No Symptoms, Difficulty Walking. Denies: Confusion, Weakness Psychiatric: Denies: Confusion, Anxiety, Hallucinations Systems Review Comment:: No significant overnight issues. However she felt "crappy" and "could not breath ". She has a mils headache this AM and has mild scratchy throat. She sounded better w/o audible wheezing compared to yesterday. Her glucose not well controlled due to steroid. - Patient Data Vitals - Most Recent: Last Vital Signs Temp 36.8 C 12/28/17 12:02 Pulse 115 H 12/28/17 12:03 Resp 32 H 12/28/17 12:03 BP 126/63 12/28/17 12:03 Pulse Ox 95 12/28/17 13:49 Weight - Most Recent: 117.118 kg I&O - Last 24 Hours: Intake & Output 12/28/17 12/28/17 12/28/17 06:59 14:59 22:59 Intake Total 600 360 Output Total 1250 Balance -650 360 Lab Results Last 24 Hours: Laboratory Results - last 24 hr 12/27/17 12/27/17 12/28/17 Range/Units 16:59 21:34 06:39 WBC (3.98-10.04) K/mm3 RBC (3.98-5.22) M/mm3 Hgb (11.2-15.7) gm/L Hct (34.1-44.9) % MCV (79.4-94.8) fl MCH (25.6-32.2) pg MCHC (32.2-35.5) g/dl RDW Std Deviation (36.4-46.3) fL Plt Count (182-369) K/mm3 MPV (9.4-12.3) fl Neut % (Auto) (34.0-71.1) % Lymph % (Auto) (19.3-51.7) % Louisa % (Auto) (4.7-12.5) % Eos % (Auto) (0.7-5.8) Baso % (Auto) (0.1-1.2) % Neut # (Auto) (1.56-6.13) K/mm3 Lymph # (Auto) (1.18-3.74) K/mm3 Louisa # (Auto) (0.24-0.36) K/mm3 Eos # (Auto) (0.04-0.36) K/mm3 Baso # (Auto) (0.01-0.08) K/mm3 Sodium (136-145) mEq/L Potassium (3.5-5.1) mEq/L Chloride (98-107) mEq/L Carbon Dioxide (21-32) mEq/L Anion Gap (5-15) BUN (7-18) mg/dL Creatinine (0.55-1.02) mg/dL Est Cr Clr Drug Dosing mL/min Estimated GFR (MDRD) (>60) mL/min BUN/Creatinine Ratio (14-18) Glucose (80-115) mg/dL POC Glucose 299 H 232 H 82 (80-115) mg/dL Calcium (8.5-10.1) mg/dL Magnesium (1.8-2.4) mg/dl C-Reactive Protein (<1.0) mg/dL 12/28/17 12/28/17 12/28/17 Range/Units 06:49 06:49 11:52 WBC 13.98 H (3.98-10.04) K/mm3 RBC 4.29 (3.98-5.22) M/mm3 Hgb 11.7 (11.2-15.7) gm/L Hct 38.1 (34.1-44.9) % MCV 88.8 (79.4-94.8) fl MCH 27.3 (25.6-32.2) pg MCHC 30.7 L (32.2-35.5) g/dl RDW Std Deviation 51.3 H (36.4-46.3) fL Plt Count 267 (182-369) K/mm3 MPV 9.6 (9.4-12.3) fl Neut % (Auto) 73.7 H (34.0-71.1) % Lymph % (Auto) 17.9 L (19.3-51.7) % Louisa % (Auto) 7.1 (4.7-12.5) % Eos % (Auto) 0.7 (0.7-5.8) Baso % (Auto) 0.1 (0.1-1.2) % Neut # (Auto) 10.31 H (1.56-6.13) K/mm3 Lymph # (Auto) 2.50 (1.18-3.74) K/mm3 Louisa # (Auto) 0.99 H (0.24-0.36) K/mm3 Eos # (Auto) 0.10 (0.04-0.36) K/mm3 Baso # (Auto) 0.01 (0.01-0.08) K/mm3 Sodium 141 (136-145) mEq/L Potassium 3.5 (3.5-5.1) mEq/L Chloride 104 (98-107) mEq/L Carbon Dioxide 31 (21-32) mEq/L Anion Gap 9.5 (5-15) BUN 37 H (7-18) mg/dL Creatinine 1.1 H (0.55-1.02) mg/dL Est Cr Clr Drug Dosing 42.85 mL/min Estimated GFR (MDRD) 50 (>60) mL/min BUN/Creatinine Ratio 33.6 H (14-18) Glucose 94 (80-115) mg/dL POC Glucose 316 H (80-115) mg/dL Calcium 9.0 (8.5-10.1) mg/dL Magnesium 1.9 (1.8-2.4) mg/dl C-Reactive Protein 0.9 (<1.0) mg/dL Antoni Results Last 24 Hours: Microbiology 12/25/17 12:30 Aerobic Blood Culture - Preliminary Blood - Venous NO GROWTH AFTER 3 DAYS Anaerobic Blood Culture - Preliminary NO GROWTH AFTER 3 DAYS 12/25/17 12:20 Aerobic Blood Culture - Preliminary Blood - Venous - Lab Draw NO GROWTH AFTER 3 DAYS Anaerobic Blood Culture - Final Med Orders - Current: Current Medications Acetaminophen (Tylenol) 650 mg PO Q4H PRN PRN Reason: Pain (Mild 1-3)/fever Last Admin: 12/27/17 06:15 Dose: 650 mg Hydrocodone Bitart/Acetaminophen ([place] 325-5 Mg) 1 tab PO Q4H PRN PRN Reason: Pain (moderate 4-6) Last Admin: 12/28/17 14:11 Dose: 1 tab Albuterol/Ipratropium (Duoneb 3.0-0.5 Mg/3 Ml) 3 ml NEB Q4H PRN PRN Reason: Shortness Of Breath/wheezing Last Admin: 12/28/17 09:38 Dose: 3 ml Albuterol/Ipratropium (Duoneb 3.0-0.5 Mg/3 Ml) 3 ml NEB TID@0700,1400,2100 [facility] Last Admin: 12/28/17 13:48 Dose: 3 ml Allopurinol (Zyloprim) 300 mg PO DAILY [facility] Last Admin: 12/28/17 09:16 Dose: 300 mg Amoxicillin (Amoxil) 500 mg PO Q12H [facility] Last Admin: 12/28/17 11:56 Dose: 500 mg Aspirin (Aspirin) 81 mg PO DAILY [facility] Last Admin: 12/28/17 09:17 Dose: 81 mg Benzocaine/Menthol (Cepacol Sore Throat) 1 lozenge MUCMEM Q4H PRN PRN Reason: Sore Throat Last Admin: 12/27/17 22:33 Dose: 1 lozenge Bisacodyl (Dulcolax) 5 mg PO DAILY PRN PRN Reason: Constipation Cholecalciferol (Vitamin D3) 5,000 unit PO Th [facility] Last Admin: 12/27/17 08:32 Dose: 5,000 unit Docusate Sodium (Colace) 100 mg PO BID PRN PRN Reason: Constipation Enoxaparin Sodium (Lovenox) 40 mg SUBCUT DAILY [facility] Last Admin: 12/28/17 09:15 Dose: 40 mg Flunisolide (Nasalide Nasal [place]) 0 ml NASBOTH BID [facility] Last Admin: 12/28/17 09:17 Dose: 1 spray Glipizide (Glucotrol Xl) 10 mg PO BID [facility] Last Admin: 12/28/17 09:16 Dose: 10 mg Hydrochlorothiazide (Hydrochlorothiazide) 25 mg PO DAILY [facility] Last Admin: 12/28/17 09:16 Dose: 25 mg Promethazine HCl 12.5 mg/ (Sodium Chloride) 50.5 mls @ 100 mls/hr IV Q6H PRN PRN Reason: Nausea/Vomiting Azithromycin 500 mg/ Sodium (Chloride) 250 mls @ 125 mls/hr IV DAILY@1600 [facility] Last Admin: 12/27/17 15:17 Dose: 125 mls/hr Insulin Glargine (Lantus Solostar) 70 units SUBCUT BEDTIME [facility] Last Admin: 12/27/17 20:25 Dose: 70 units Insulin Human Lispro (Humalog) 0 unit SUBCUT QIDACANDBED [facility]; Protocol Last Admin: 12/28/17 11:56 Dose: 12 units Lisinopril (Prinivil) 10 mg PO DAILY [facility] Last Admin: 12/28/17 09:16 Dose: 10 mg Lorazepam (Ativan) 0.5 mg IV Q6H PRN PRN Reason: Anxiety Last Admin: 12/27/17 23:52 Dose: 0.5 mg Metformin HCl (Glucophage) 1,000 mg PO BID [facility] Last Admin: 12/28/17 09:16 Dose: 1,000 mg Methylprednisolone Sodium Succinate (Solu-Medrol) 60 mg IVPUSH Q12H [facility] Miscellaneous Information (Remove Patch) 1 ea TRDERM DAILY [facility] Last Admin: 12/28/17 09:18 Dose: 1 ea Morphine Sulfate (Morphine) 1 mg IVPUSH Q4H PRN PRN Reason: Other Stop: 12/31/17 15:35 Last Admin: 12/28/17 03:56 Dose: 1 mg Nicotine (Habitrol) 21 mg TRDERM DAILY [facility] Last Admin: 12/28/17 09:17 Dose: 21 mg Ondansetron HCl (Zofran) 4 mg IV Q6H PRN PRN Reason: Nausea/Vomiting Oxymetazoline HCl (Afrin Original 0.05% Nasal [place]) 0 ml DEE Q12HR PRN PRN Reason: Nasal Congestion Last Admin: 12/27/17 20:25 Dose: 1 spray Pantoprazole Sodium (Protonix) 40 mg PO DAILY@0700 [facility] Last Admin: 12/28/17 06:35 Dose: 40 mg Phenol/Menthol (Chloraseptic) 15 ml MUCMEM Q2H PRN PRN Reason: Sore Throat Polyethylene Glycol (Miralax) 17 gm PO DAILY PRN PRN Reason: Constipation Senna/Docusate Sodium (Senna Plus) 1 tab PO BID PRN PRN Reason: Constipation Sertraline HCl (Zoloft) 50 mg PO DAILY [facility] Last Admin: 12/28/17 09:16 Dose: 50 mg Simvastatin (Zocor) 5 mg PO BEDTIME [facility] Last Admin: 12/27/17 20:24 Dose: 5 mg Sodium Chloride (Saline Flush) 10 ml FLUSH ASDIRECTED PRN PRN Reason: Keep Vein Open Last Admin: 12/25/17 12:20 Dose: 10 ml Temazepam (Restoril) 7.5 mg PO BEDTIME PRN PRN Reason: Sleep Last Admin: 12/27/17 21:15 Dose: 7.5 mg Discontinued Medications Albuterol/Ipratropium (Duoneb 3.0-0.5 Mg/3 Ml) Confirm Administered Dose 3 ml .ROUTE .STK-MED ONE Stop: 12/25/17 11:57 Last Admin: 12/25/17 12:04 Dose: 3 ml Albuterol/Ipratropium (Duoneb 3.0-0.5 Mg/3 Ml) 3 ml NEB ONETIME ONE Stop: 12/25/17 12:06 Last Admin: 12/25/17 12:07 Dose: Not Given Amoxicillin (Amoxil) 500 mg PO ONETIME ONE Stop: 12/25/17 13:36 Last Admin: 12/25/17 14:03 Dose: 500 mg Amoxicillin (Amoxil) 500 mg PO Q12H [facility] PRN Reason: Nausea/Vomiting Last Admin: 12/26/17 10:54 Dose: 500 mg Azithromycin (Zithromax) 500 mg IV Q24H [facility] Bumetanide (Bumex) 1 mg IVPUSH ONETIME ONE Stop: 12/27/17 09:31 Last Admin: 12/27/17 09:38 Dose: 1 mg Sodium Chloride (Normal Saline) 1,000 mls @ 999 mls/hr IV ONETIME ONE Stop: 12/25/17 14:28 Last Admin: 12/25/17 13:46 Dose: 999 mls/hr Azithromycin 500 mg/ Sodium (Chloride) 250 mls @ 250 mls/hr IV ONETIME ONE Stop: 12/25/17 16:42 Last Admin: 12/25/17 16:16 Dose: 250 mls/hr Sodium Chloride (Normal Saline) 1,000 mls @ 100 mls/hr IV ASDIRECTED [facility] Last Admin: 12/27/17 04:16 Dose: 100 mls/hr Insulin Glargine (Lantus Solostar) 60 units SUBCUT BEDTIME [facility] Last Admin: 12/25/17 23:43 Dose: 60 units Ketorolac Tromethamine (Toradol) 30 mg IVPUSH ONETIME ONE Stop: 12/25/17 13:36 Last Admin: 12/25/17 14:00 Dose: 30 mg Methylprednisolone Sodium Succinate (Solu-Medrol) 125 mg IVPUSH ONETIME ONE Stop: 12/25/17 12:04 Last Admin: 12/25/17 12:27 Dose: 125 mg Methylprednisolone Sodium Succinate (Solu-Medrol) 60 mg IVPUSH TID@2100,0700, 1400 [facility] Last Admin: 12/26/17 14:24 Dose: 60 mg Morphine Sulfate (Morphine) 0.5 mg IVPUSH ONETIME ONE Stop: 12/27/17 09:33 Last Admin: 12/27/17 09:40 Dose: 0.5 mg Prednisone (Prednisone) 20 mg PO WITHBREAKFAST [facility] Last Admin: 12/28/17 06:35 Dose: 20 mg - Exam Quality Assessment: Supplemental Oxygen General: Alert, Oriented, Cooperative, Mild Distress HEENT: Pupils Equal, Pupils Reactive, EOMI, Mucous Membr. Moist/[place] Neck: Supple, Trachea Midline, No JVD, No Thyromegaly, Other (shot and thick) Lungs: Normal Respiratory Effort, Decreased Breath Sounds, Rhonchi Cardiovascular: Regular Rate, Regular Rhythm GI/Abdominal Exam: Normal Bowel Sounds, Soft, Non-Tender, No Organomegaly, No Distention, No Abnormal Bruit, Other (Obese) (Female) Exam: Deferred Back Exam: Normal Inspection, Decreased Range of Motion Extremities: Normal Inspection, Normal Range of Motion, No Pedal Edema, Normal Capillary Refill Peripheral Pulses: 2+: Dorsalis Pedis (L), Dorsalis Pedis (R) Skin: Warm, Dry, Intact Neurological: No New Focal Deficit Psy/Mental Status: Alert, Normal Affect, Normal Mood - Problem List Review Problem List Initiated/Reviewed/Updated: Yes - My Orders Last 24 Hours: My Active Orders 12/28/17 10:48 RT Aerosol Therapy [RC] ASDIRECTED 12/28/17 14:00 Albuterol/Ipratropium [DuoNeb 3.0-0.5 MG/3 ML] 3 ml NEB TID@0700,1400,2100 12/28/17 21:00 methylPREDNISolone Sod Succ [Solu-MEDROL] 60 mg IVPUSH Q12H 12/29/17 05:11 BASIC METABOLIC PANEL,BMP [CHEM] AM C-REACTIVE PROTEIN [CHEM] AM CBC WITH AUTO DIFF [HEME] AM MAGNESIUM [CHEM] AM 12/30/17 05:11 BASIC METABOLIC PANEL,BMP [CHEM] AM C-REACTIVE PROTEIN [CHEM] AM CBC WITH AUTO DIFF [HEME] AM MAGNESIUM [CHEM] AM 12/31/17 05:11 BASIC METABOLIC PANEL,BMP [CHEM] AM C-REACTIVE PROTEIN [CHEM] AM CBC WITH AUTO DIFF [HEME] AM MAGNESIUM [CHEM] AM - Plan Plan:: Assessment/Plan: Acute: Strep Pharyngitis/Sore Throat, Stable - Pos on screening - Received one time dose of oral Amoxicillin in ED; per pharmacy will resume it due to resistance with Macrolides--> Continue Amoxicillin - PRN lozenges and or throat spray COPD Exacerbation, Worse Today - 2/2 Non-compliance - She still smokes cigarettes - Risk Factors: COPD, Chronic Respiratory Failure on 3L NC, and Morbid Obesity - Continue Steroids, Bronchodilators, Magnesium, Supplemental O2, and RT Care - Switch to IV Steroid 40 mg IV BID, Scheduled Albuterol TID, and 400 mg Mag Ox BID - Continue IV Azithromycin 500 mg daily for anti-inflammatory agent for COPD Exacerbation Hyperglycemia with DM2 with Peripheral Neuropathy - BS in the 300s--> remains uncontrolled - She is on Metformin 1000 mg po BID, Glipizide 10 mg po BID and Lantus 60 units SubQ QHS and high dose ISS - Resume IV steroids; changed lantus 60 units SubQ BID - Consider SGLT2 and GLP-I Inhibitors-will offer to patient; unsure if her insurance covers it Nicotine Use Disorder - Still smokes cigarettes - Counseled on smoking cessation - Nicotine patch daily Medical Non-Adherence - Counseled on the importance of compliance with medical treatment Chronic: HTN HLD COPD/Asthma Back Pain Gout OA/DJD Migraines Anxiety Depression Obesity with BMI of 44 Plan: She is somewhat anxious this morning but not in significant respiratory distress Continue current treatment Routine AM Labs Dietary consult for weigh management Accu-check with ISS QIDAC/HS Continue RT/PT/OT SW/CM for d/c planning Additional orders as above Code Status: 1 LOS > 96hrs due to slow response to treatment and uncontrolled blood glucose
[2017-12-28] MEDS: Azithromycin 500 MG in Sodium Chloride 0.9% 250 ML IV SCH (17:10)
[2017-12-28] MEDS ORDERED: Insulin Glargine,Human Rec. Analog 100 Units/ML 3 ML Pen SUBCUT SCH (21:00)
[2017-12-28] MEDS: methylPREDNISolone Sodium Succinate 40 MG/1 ML SDV IVPUSH SCH (22:05)
[2017-12-28] MEDS: Magnesium Oxide 400 MG Tab PO SCH (22:07)
[2017-12-28] MEDS: Simvastatin 10 MG Tab PO SCH (22:08)
[2017-12-28] MEDS: Insulin Glargine,Human Rec. Analog 100 Units/ML 3 ML Pen SUBCUT SCH (22:10)
[2017-12-29] MEDS: Morphine 2 MG/ML Syringe IVPUSH PRN ×4 (01:55→18:52)
[2017-12-29] MEDS: Benzocaine/Cetylpyridinium/Menthol Lozenge MUCMEM PRN ×4 (02:07→18:52)
[2017-12-29] MEDS: Oxymetazoline 0.05% Nasal Spray 15 ML Bottle NAS PRN (04:25)
[2017-12-29] MEDS: Acetaminophen/HYDROcodone 325-5 MG Tab PO PRN (04:26)
[2017-12-29] MEDS: Pantoprazole 40 MG Tab.CR PO SCH (07:22)
[2017-12-29] MEDS: Insulin Lispro 100 Unit/ML 3 ML KwikPen SUBCUT SCH ×4 (07:23→22:00)
[2017-12-29] MEDS: Albuterol/Ipratropium 3.0-0.5 MG/3 ML Neb Soln NEB SCH ×3 (07:25→20:22)
[2017-12-29] MEDS: methylPREDNISolone Sodium Succinate 40 MG/1 ML SDV IVPUSH SCH ×2 (09:10→21:59)
[2017-12-29] MEDS: Hydrochlorothiazide 25 MG Tab PO SCH (09:11)
[2017-12-29] MEDS: Magnesium Oxide 400 MG Tab PO SCH ×2 (09:11→21:54)
[2017-12-29] MEDS: Allopurinol 100 MG Tab PO SCH (09:11)
[2017-12-29] MEDS: metFORMIN 500 MG Tab PO SCH ×2 (09:11→21:54)
[2017-12-29] MEDS: Lisinopril 10 MG Tab PO SCH (09:11)
[2017-12-29] MEDS: Aspirin 81 MG Tab.Chew PO SCH (09:11)
--- NOTE | 2017-12-29 09:11 | PCM.PN ---
- General Info Date of Service: 12/29/17 Admission Dx/Problem (Free Text): Admission Diagnosis/Problem Admission Diagnosis/Problem COPD, Severe chronic obstructive pulmonary disease Subjective Update: Follow Up Functional Status: Reports: Pain Controlled, Tolerating Diet, Ambulating, Urinating. Denies: New Symptoms - Review of Systems General: Reports: Fatigue. Denies: Fever, Weakness, Malaise, Chills HEENT: Reports: No Symptoms Pulmonary: Reports: Shortness of Breath, Wheezing. Denies: Cough, Sputum Cardiovascular: Reports: Dyspnea on Exertion. Denies: Chest Pain, Edema, Lightheadedness Gastrointestinal: Denies: Abdominal Pain, Decreased Appetite, Nausea, Vomiting Genitourinary: Reports: No Symptoms Musculoskeletal: Reports: No Symptoms Skin: Denies: Cyanosis, Pallor, Diaphoresis Neurological: Denies: Confusion, Difficulty Walking, Weakness, Gait Disturbance Psychiatric: Denies: Anxiety, Agitation, Hallucinations Systems Review Comment:: She did not slept well last night however she breaths a little better this AM. Her glucose remains uncontrolled. Her K is slightly high at 5.2. She has no other complaints. - Patient Data Vitals - Most Recent: Last Vital Signs Temp 36.7 C 12/29/17 04:16 Pulse 85 12/29/17 04:16 Resp 34 H 12/29/17 04:16 BP 128/68 12/29/17 04:16 Pulse Ox 93 L 12/29/17 07:26 Weight - Most Recent: 116.437 kg I&O - Last 24 Hours: Intake & Output 12/28/17 12/29/17 12/29/17 22:59 06:59 14:59 Intake Total 1220 950 Output Total 700 800 Balance 520 150 Lab Results Last 24 Hours: Laboratory Results - last 24 hr 12/28/17 12/28/17 12/28/17 Range/Units 11:52 17:00 20:38 WBC (3.98-10.04) K/mm3 RBC (3.98-5.22) M/mm3 Hgb (11.2-15.7) gm/L Hct (34.1-44.9) % MCV (79.4-94.8) fl MCH (25.6-32.2) pg MCHC (32.2-35.5) g/dl RDW Std Deviation (36.4-46.3) fL Plt Count (182-369) K/mm3 MPV (9.4-12.3) fl Neut % (Auto) (34.0-71.1) % Lymph % (Auto) (19.3-51.7) % Christian % (Auto) (4.7-12.5) % Eos % (Auto) (0.7-5.8) Baso % (Auto) (0.1-1.2) % Neut # (Auto) (1.56-6.13) K/mm3 Lymph # (Auto) (1.18-3.74) K/mm3 Christian # (Auto) (0.24-0.36) K/mm3 Eos # (Auto) (0.04-0.36) K/mm3 Baso # (Auto) (0.01-0.08) K/mm3 Manual Slide Review Sodium (136-145) mEq/L Potassium (3.5-5.1) mEq/L Chloride (98-107) mEq/L Carbon Dioxide (21-32) mEq/L Anion Gap (5-15) BUN (7-18) mg/dL Creatinine (0.55-1.02) mg/dL Est Cr Clr Drug Dosing mL/min Estimated GFR (MDRD) (>60) mL/min BUN/Creatinine Ratio (14-18) Glucose (80-115) mg/dL POC Glucose 316 H 179 H 218 H (80-115) mg/dL Calcium (8.5-10.1) mg/dL Magnesium (1.8-2.4) mg/dl C-Reactive Protein (<1.0) mg/dL 12/29/17 12/29/17 12/29/17 Range/Units 06:00 06:00 06:57 WBC 11.37 H (3.98-10.04) K/mm3 RBC 3.87 L (3.98-5.22) M/mm3 Hgb 10.6 L (11.2-15.7) gm/L Hct 34.8 (34.1-44.9) % MCV 89.9 (79.4-94.8) fl MCH 27.4 (25.6-32.2) pg MCHC 30.5 L (32.2-35.5) g/dl RDW Std Deviation 51.4 H (36.4-46.3) fL Plt Count 230 (182-369) K/mm3 MPV 10.2 (9.4-12.3) fl Neut % (Auto) 89.4 H (34.0-71.1) % Lymph % (Auto) 8.3 L (19.3-51.7) % Christian % (Auto) 1.9 L (4.7-12.5) % Eos % (Auto) 0 L (0.7-5.8) Baso % (Auto) 0.1 (0.1-1.2) % Neut # (Auto) 10.17 H (1.56-6.13) K/mm3 Lymph # (Auto) 0.94 L (1.18-3.74) K/mm3 Christian # (Auto) 0.22 L (0.24-0.36) K/mm3 Eos # (Auto) 0.00 L (0.04-0.36) K/mm3 Baso # (Auto) 0.01 (0.01-0.08) K/mm3 Manual Slide Review Abnormal smear Sodium 137 (136-145) mEq/L Potassium 5.2 H (3.5-5.1) mEq/L Chloride 101 (98-107) mEq/L Carbon Dioxide 29 (21-32) mEq/L Anion Gap 12.2 (5-15) BUN 37 H (7-18) mg/dL Creatinine 1.2 H (0.55-1.02) mg/dL Est Cr Clr Drug Dosing 39.28 mL/min Estimated GFR (MDRD) 45 (>60) mL/min BUN/Creatinine Ratio 30.8 H (14-18) Glucose 316 H (80-115) mg/dL POC Glucose 342 H (80-115) mg/dL Calcium 8.8 (8.5-10.1) mg/dL Magnesium 1.9 (1.8-2.4) mg/dl C-Reactive Protein 0.7 (<1.0) mg/dL Antoni Results Last 24 Hours: Microbiology 12/25/17 12:30 Aerobic Blood Culture - Preliminary Blood - Venous NO GROWTH AFTER 3 DAYS Anaerobic Blood Culture - Preliminary NO GROWTH AFTER 3 DAYS 12/25/17 12:20 Aerobic Blood Culture - Preliminary Blood - Venous - Lab Draw NO GROWTH AFTER 3 DAYS Anaerobic Blood Culture - Final Med Orders - Current: Current Medications Acetaminophen (Tylenol) 650 mg PO Q4H PRN PRN Reason: Pain (Mild 1-3)/fever Last Admin: 12/27/17 06:15 Dose: 650 mg Hydrocodone Bitart/Acetaminophen ([place] 325-5 Mg) 1 tab PO Q4H PRN PRN Reason: Pain (moderate 4-6) Last Admin: 12/29/17 04:26 Dose: 1 tab Albuterol/Ipratropium (Duoneb 3.0-0.5 Mg/3 Ml) 3 ml NEB Q4H PRN PRN Reason: Shortness Of Breath/wheezing Last Admin: 12/28/17 09:38 Dose: 3 ml Albuterol/Ipratropium (Duoneb 3.0-0.5 Mg/3 Ml) 3 ml NEB TID@0700,1400,2100 [facility] Last Admin: 12/29/17 07:25 Dose: 3 ml Allopurinol (Zyloprim) 300 mg PO DAILY [facility] Last Admin: 12/28/17 09:16 Dose: 300 mg Amoxicillin (Amoxil) 500 mg PO Q12H [facility] Last Admin: 12/28/17 22:06 Dose: 500 mg Aspirin (Aspirin) 81 mg PO DAILY [facility] Last Admin: 12/28/17 09:17 Dose: 81 mg Benzocaine/Menthol (Cepacol Sore Throat) 1 lozenge MUCMEM Q4H PRN PRN Reason: Sore Throat Last Admin: 12/29/17 02:07 Dose: 1 lozenge Bisacodyl (Dulcolax) 5 mg PO DAILY PRN PRN Reason: Constipation Cholecalciferol (Vitamin D3) 5,000 unit PO Th [facility] Last Admin: 12/27/17 08:32 Dose: 5,000 unit Docusate Sodium (Colace) 100 mg PO BID PRN PRN Reason: Constipation Enoxaparin Sodium (Lovenox) 40 mg SUBCUT DAILY [facility] Last Admin: 12/28/17 09:15 Dose: 40 mg Flunisolide (Nasalide Nasal [place]) 0 ml NASBOTH BID [facility] Last Admin: 12/28/17 22:10 Dose: 1 spray Glipizide (Glucotrol Xl) 10 mg PO BID [facility] Last Admin: 12/28/17 22:06 Dose: 10 mg Hydrochlorothiazide (Hydrochlorothiazide) 25 mg PO DAILY [facility] Last Admin: 12/28/17 09:16 Dose: 25 mg Promethazine HCl 12.5 mg/ (Sodium Chloride) 50.5 mls @ 100 mls/hr IV Q6H PRN PRN Reason: Nausea/Vomiting Azithromycin 500 mg/ Sodium (Chloride) 250 mls @ 125 mls/hr IV DAILY@1600 [facility] Last Admin: 12/28/17 17:10 Dose: 125 mls/hr Insulin Glargine (Lantus Solostar) 60 units SUBCUT BID [facility] Last Admin: 12/28/17 22:10 Dose: 60 units Insulin Human Lispro (Humalog) 0 unit SUBCUT QIDACANDBED [facility]; Protocol Last Admin: 12/29/17 07:23 Dose: 12 units Lisinopril (Prinivil) 10 mg PO DAILY [facility] Last Admin: 12/28/17 09:16 Dose: 10 mg Lorazepam (Ativan) 0.5 mg IV Q6H PRN PRN Reason: Anxiety Last Admin: 12/27/17 23:52 Dose: 0.5 mg Magnesium Oxide (Magnesium Oxide) 400 mg PO BID [facility] Last Admin: 12/28/17 22:07 Dose: 400 mg Metformin HCl (Glucophage) 1,000 mg PO BID [facility] Last Admin: 12/28/17 22:08 Dose: 1,000 mg Methylprednisolone Sodium Succinate (Solu-Medrol) 60 mg IVPUSH Q12H [facility] Last Admin: 12/28/17 22:05 Dose: 60 mg Miscellaneous Information (Remove Patch) 1 ea TRDERM DAILY [facility] Last Admin: 12/28/17 09:18 Dose: 1 ea Morphine Sulfate (Morphine) 1 mg IVPUSH Q4H PRN PRN Reason: Other Stop: 12/31/17 15:35 Last Admin: 12/29/17 01:55 Dose: 1 mg Nicotine (Habitrol) 21 mg TRDERM DAILY [facility] Last Admin: 12/28/17 09:17 Dose: 21 mg Ondansetron HCl (Zofran) 4 mg IV Q6H PRN PRN Reason: Nausea/Vomiting Oxymetazoline HCl (Afrin Original 0.05% Nasal [place]) 0 ml DEE Q12HR PRN PRN Reason: Nasal Congestion Last Admin: 12/29/17 04:25 Dose: 1 spray Pantoprazole Sodium (Protonix) 40 mg PO DAILY@0700 [facility] Last Admin: 12/29/17 07:22 Dose: 40 mg Phenol/Menthol (Chloraseptic) 15 ml MUCMEM Q2H PRN PRN Reason: Sore Throat Polyethylene Glycol (Miralax) 17 gm PO DAILY PRN PRN Reason: Constipation Senna/Docusate Sodium (Senna Plus) 1 tab PO BID PRN PRN Reason: Constipation Sertraline HCl (Zoloft) 50 mg PO DAILY [facility] Last Admin: 12/28/17 09:16 Dose: 50 mg Simvastatin (Zocor) 5 mg PO BEDTIME [place] Last Admin: 12/28/17 22:08 Dose: 5 mg Sodium Chloride (Saline Flush) 10 ml FLUSH ASDIRECTED PRN PRN Reason: Keep Vein Open Last Admin: 12/25/17 12:20 Dose: 10 ml Temazepam (Restoril) 7.5 mg PO BEDTIME PRN PRN Reason: Sleep Last Admin: 12/27/17 21:15 Dose: 7.5 mg Discontinued Medications Albuterol/Ipratropium (Duoneb 3.0-0.5 Mg/3 Ml) Confirm Administered Dose 3 ml .ROUTE .STK-MED ONE Stop: 12/25/17 11:57 Last Admin: 12/25/17 12:04 Dose: 3 ml Albuterol/Ipratropium (Duoneb 3.0-0.5 Mg/3 Ml) 3 ml NEB ONETIME ONE Stop: 12/25/17 12:06 Last Admin: 12/25/17 12:07 Dose: Not Given Amoxicillin (Amoxil) 500 mg PO ONETIME ONE Stop: 12/25/17 13:36 Last Admin: 12/25/17 14:03 Dose: 500 mg Amoxicillin (Amoxil) 500 mg PO Q12H [place] PRN Reason: Nausea/Vomiting Last Admin: 12/26/17 10:54 Dose: 500 mg Azithromycin (Zithromax) 500 mg IV Q24H [place] Bumetanide (Bumex) 1 mg IVPUSH ONETIME ONE Stop: 12/27/17 09:31 Last Admin: 12/27/17 09:38 Dose: 1 mg Sodium Chloride (Normal Saline) 1,000 mls @ 999 mls/hr IV ONETIME ONE Stop: 12/25/17 14:28 Last Admin: 12/25/17 13:46 Dose: 999 mls/hr Azithromycin 500 mg/ Sodium (Chloride) 250 mls @ 250 mls/hr IV ONETIME ONE Stop: 12/25/17 16:42 Last Admin: 12/25/17 16:16 Dose: 250 mls/hr Sodium Chloride (Normal Saline) 1,000 mls @ 100 mls/hr IV ASDIRECTED [facility] Last Admin: 12/27/17 04:16 Dose: 100 mls/hr Insulin Glargine (Lantus Solostar) 60 units SUBCUT BEDTIME [facility] Last Admin: 12/25/17 23:43 Dose: 60 units Insulin Glargine (Lantus Solostar) 70 units SUBCUT BEDTIME [facility] Last Admin: 12/27/17 20:25 Dose: 70 units Insulin Glargine (Lantus Solostar) 70 units SUBCUT BID [facility] Ketorolac Tromethamine (Toradol) 30 mg IVPUSH ONETIME ONE Stop: 12/25/17 13:36 Last Admin: 12/25/17 14:00 Dose: 30 mg Methylprednisolone Sodium Succinate (Solu-Medrol) 125 mg IVPUSH ONETIME ONE Stop: 12/25/17 12:04 Last Admin: 12/25/17 12:27 Dose: 125 mg Methylprednisolone Sodium Succinate (Solu-Medrol) 60 mg IVPUSH TID@2100,0700, 1400 [facility] Last Admin: 12/26/17 14:24 Dose: 60 mg Morphine Sulfate (Morphine) 0.5 mg IVPUSH ONETIME ONE Stop: 12/27/17 09:33 Last Admin: 12/27/17 09:40 Dose: 0.5 mg Prednisone (Prednisone) 20 mg PO WITHBREAKFAST [facility] Last Admin: 12/28/17 06:35 Dose: 20 mg - Exam Quality Assessment: Supplemental Oxygen General: Alert, Oriented, Cooperative, No Acute Distress, Other (Obese) HEENT: Pupils Equal, Pupils Reactive, EOMI, Mucous Membr. Moist/[place], Other (no accessory muscle use) Neck: Supple, Trachea Midline, No JVD Lungs: Normal Respiratory Effort, Rhonchi Cardiovascular: Regular Rate, Regular Rhythm GI/Abdominal Exam: Normal Bowel Sounds, Soft, Non-Tender, No Organomegaly, No Distention, No Abnormal Bruit, Other (Obese) (Female) Exam: Deferred Back Exam: Normal Inspection, Decreased Range of Motion Extremities: Normal Inspection, Normal Range of Motion, Non-Tender, No Pedal Edema, Normal Capillary Refill Peripheral Pulses: 2+: Dorsalis Pedis (L), Dorsalis Pedis (R) Skin: Warm, Dry, Intact Neurological: No New Focal Deficit Psy/Mental Status: Alert, Normal Affect, Normal Mood - Problem List Review Problem List Initiated/Reviewed/Updated: Yes - My Orders Last 24 Hours: My Active Orders 12/28/17 10:48 RT Aerosol Therapy [RC] ASDIRECTED 12/28/17 14:00 Albuterol/Ipratropium [DuoNeb 3.0-0.5 MG/3 ML] 3 ml NEB TID@0700,1400,2100 12/28/17 16:29 Patient Status [ADT] Routine 12/28/17 21:00 Insulin Glarg,Human.Rec.Analog [LantUS Solostar] 60 units SUBCUT BID Magnesium Oxide 400 mg PO BID methylPREDNISolone Sod Succ [Solu-MEDROL] 60 mg IVPUSH Q12H 12/30/17 05:11 BASIC METABOLIC PANEL,BMP [CHEM] AM C-REACTIVE PROTEIN [CHEM] AM CBC WITH AUTO DIFF [HEME] AM MAGNESIUM [CHEM] AM 12/31/17 05:11 BASIC METABOLIC PANEL,BMP [CHEM] AM C-REACTIVE PROTEIN [CHEM] AM CBC WITH AUTO DIFF [HEME] AM MAGNESIUM [CHEM] AM - Plan Plan:: Assessment/Plan: Acute: Strep Pharyngitis/Sore Throat, Stable - Pos on screening - Received one time dose of oral Amoxicillin in ED; per pharmacy will resume it due to resistance with Macrolides--> Continue Amoxicillin - PRN lozenges and or throat spray COPD Exacerbation, Improve - 2/2 Non-compliance - She still smokes cigarettes - Risk Factors: COPD, Chronic Respiratory Failure on 3L NC, and Morbid Obesity - Continue Steroids, Bronchodilators, Magnesium, Supplemental O2, and RT Care - Switch to IV Steroid 40 mg IV BID, Scheduled Albuterol TID, and 400 mg Mag Ox BID - Continue IV Azithromycin 500 mg daily for anti-inflammatory agent for COPD Exacerbation Hyperglycemia with DM2 with Peripheral Neuropathy - BS in the 300s--> remains uncontrolled - She is on Metformin 1000 mg po BID, Glipizide 10 mg po BID and Lantus 60 units SubQ QHS and high dose ISS - Continue IV steroids; will change Lantus to 70 from 60 units SubQ BID - Consider SGLT2 and GLP-I Inhibitors-defer to PCP Nicotine Use Disorder - Still smokes cigarettes - Counseled on smoking cessation - Nicotine patch daily Medical Non-Adherence - Counseled on the importance of compliance with medical treatment Chronic: HTN HLD COPD/Asthma Back Pain Gout OA/DJD Migraines Anxiety Depression Obesity with BMI of 44 Plan: She is a little better today Continue current treatment Routine AM Labs Accu-check with ISS QIDAC/HS Continue RT/PT/OT SW/CM for d/c planning Additional orders as above Code Status: 1 LOS > 96hrs due to slow response to treatment and uncontrolled blood glucose
[2017-12-29] MEDS: Nicotine 21 MG/24 Hr Patch TRDERM SCH (09:12)
[2017-12-29] MEDS: Insulin Glargine,Human Rec. Analog 100 Units/ML 3 ML Pen SUBCUT SCH ×2 (09:12→21:55)
[2017-12-29] MEDS: glipiZIDE 5 MG Tab.ER PO SCH ×2 (09:12→21:53)
[2017-12-29] MEDS: Sertraline 50 MG Tab PO SCH (09:13)
[2017-12-29] MEDS: Enoxaparin 40 MG/0.4 ML Syringe SUBCUT SCH (09:13)
[2017-12-29] MEDS: Amoxicillin 500 MG Cap PO SCH ×2 (12:16→22:01)
[2017-12-29] MEDS: Azithromycin 500 MG in Sodium Chloride 0.9% 250 ML IV SCH (14:59)
[2017-12-29] MEDS: Albuterol/Ipratropium 3.0-0.5 MG/3 ML Neb Soln NEB PRN (18:06)
[2017-12-29] MEDS: Simvastatin 10 MG Tab PO SCH (21:52)
[2017-12-29] MEDS: guaiFENesin/Dextromethorphan 100-10 MG/5 ML Soln 5 ML Cup PO SCH (22:12)
[2017-12-30] MEDS: Benzocaine/Cetylpyridinium/Menthol Lozenge MUCMEM PRN ×3 (00:24→14:33)
[2017-12-30] MEDS: Morphine 2 MG/ML Syringe IVPUSH PRN ×4 (00:25→21:03)
[2017-12-30] MEDS: Insulin Lispro 100 Unit/ML 3 ML KwikPen SUBCUT SCH ×5 (06:25→21:06)
[2017-12-30] MEDS: Pantoprazole 40 MG Tab.CR PO SCH (06:26)
[2017-12-30] MEDS: Acetaminophen/HYDROcodone 325-5 MG Tab PO PRN (06:26)
[2017-12-30] MEDS: guaiFENesin/Dextromethorphan 100-10 MG/5 ML Soln 5 ML Cup PO SCH ×3 (06:27→21:02)
[2017-12-30] MEDS: Albuterol/Ipratropium 3.0-0.5 MG/3 ML Neb Soln NEB SCH ×3 (08:04→20:27)
[2017-12-30] MEDS: methylPREDNISolone Sodium Succinate 40 MG/1 ML SDV IVPUSH SCH ×2 (08:57→20:50)
[2017-12-30] MEDS: Oxymetazoline 0.05% Nasal Spray 15 ML Bottle NAS PRN (08:57)
[2017-12-30] MEDS: Lisinopril 10 MG Tab PO SCH (08:58)
[2017-12-30] MEDS: Nicotine 21 MG/24 Hr Patch TRDERM SCH (08:58)
[2017-12-30] MEDS: Enoxaparin 40 MG/0.4 ML Syringe SUBCUT SCH (08:58)
[2017-12-30] MEDS: Magnesium Oxide 400 MG Tab PO SCH ×2 (08:58→20:47)
[2017-12-30] MEDS: Aspirin 81 MG Tab.Chew PO SCH (08:58)
[2017-12-30] MEDS: glipiZIDE 5 MG Tab.ER PO SCH ×2 (08:59→20:48)
[2017-12-30] MEDS: Allopurinol 100 MG Tab PO SCH (08:59)
[2017-12-30] MEDS: Hydrochlorothiazide 25 MG Tab PO SCH (08:59)
[2017-12-30] MEDS: Sertraline 50 MG Tab PO SCH (08:59)
[2017-12-30] MEDS: Insulin Glargine,Human Rec. Analog 100 Units/ML 3 ML Pen SUBCUT SCH ×2 (09:00→20:53)
[2017-12-30] MEDS: metFORMIN 500 MG Tab PO SCH ×2 (09:19→20:48)
[2017-12-30] MEDS ORDERED: guaiFENesin/Dextromethorphan 100-10 MG/5 ML Soln 5 ML Cup PO PRN (10:19)
--- NOTE | 2017-12-30 10:20 | PCM.PN ---
- General Info Date of Service: 12/30/17 Admission Dx/Problem (Free Text): Admission Diagnosis/Problem Admission Diagnosis/Problem COPD, Severe chronic obstructive pulmonary disease Subjective Update: Follow Up Functional Status: Reports: Pain Controlled, Tolerating Diet, Ambulating, Urinating. Denies: New Symptoms - Review of Systems General: Denies: Fever, Chills HEENT: Reports: No Symptoms Pulmonary: Reports: Shortness of Breath. Denies: Cough, Sputum Cardiovascular: Reports: Dyspnea on Exertion. Denies: Chest Pain, Edema, Lightheadedness Gastrointestinal: Denies: Abdominal Pain, Nausea, Vomiting Genitourinary: Reports: No Symptoms Musculoskeletal: Reports: No Symptoms Skin: Denies: Cyanosis, Diaphoresis, Rash Neurological: Denies: Confusion, Pre-Existing Deficit, Difficulty Walking, Weakness, Gait Disturbance Psychiatric: Denies: Depression, Anxiety, Agitation, Hallucinations Systems Review Comment:: No overnight or acute issues. She feels, she is getting better. She remains afebrile with mildly elevated WBC level. Her K level was about the same at 5.2. - Patient Data Vitals - Most Recent: Last Vital Signs Temp 36.5 C 12/30/17 07:32 Pulse 82 12/30/17 07:32 Resp 16 12/30/17 07:32 BP 135/62 12/30/17 08:58 Pulse Ox 96 12/30/17 08:05 Weight - Most Recent: 116.165 kg I&O - Last 24 Hours: Intake & Output 12/29/17 12/30/17 12/30/17 22:59 06:59 14:59 Intake Total 1090 400 Output Total 1050 650 Balance 40 -250 Lab Results Last 24 Hours: Laboratory Results - last 24 hr 12/29/17 12/29/17 12/29/17 Range/Units 12:06 17:19 20:36 WBC (3.98-10.04) K/mm3 RBC (3.98-5.22) M/mm3 Hgb (11.2-15.7) gm/L Hct (34.1-44.9) % MCV (79.4-94.8) fl MCH (25.6-32.2) pg MCHC (32.2-35.5) g/dl RDW Std Deviation (36.4-46.3) fL Plt Count (182-369) K/mm3 MPV (9.4-12.3) fl Neut % (Auto) (34.0-71.1) % Lymph % (Auto) (19.3-51.7) % Ashley % (Auto) (4.7-12.5) % Eos % (Auto) (0.7-5.8) Baso % (Auto) (0.1-1.2) % Neut # (Auto) (1.56-6.13) K/mm3 Lymph # (Auto) (1.18-3.74) K/mm3 Ashley # (Auto) (0.24-0.36) K/mm3 Eos # (Auto) (0.04-0.36) K/mm3 Baso # (Auto) (0.01-0.08) K/mm3 Manual Slide Review Sodium (136-145) mEq/L Potassium (3.5-5.1) mEq/L Chloride (98-107) mEq/L Carbon Dioxide (21-32) mEq/L Anion Gap (5-15) BUN (7-18) mg/dL Creatinine (0.55-1.02) mg/dL Est Cr Clr Drug Dosing mL/min Estimated GFR (MDRD) (>60) mL/min BUN/Creatinine Ratio (14-18) Glucose (80-115) mg/dL POC Glucose 289 H 309 H 295 H (80-115) mg/dL Calcium (8.5-10.1) mg/dL Magnesium (1.8-2.4) mg/dl C-Reactive Protein (<1.0) mg/dL 12/30/17 12/30/17 12/30/17 Range/Units 06:06 06:06 06:24 WBC 11.03 H (3.98-10.04) K/mm3 RBC 3.88 L (3.98-5.22) M/mm3 Hgb 10.6 L (11.2-15.7) gm/L Hct 34.8 (34.1-44.9) % MCV 89.7 (79.4-94.8) fl MCH 27.3 (25.6-32.2) pg MCHC 30.5 L (32.2-35.5) g/dl RDW Std Deviation 50.5 H (36.4-46.3) fL Plt Count 154 L (182-369) K/mm3 MPV 10.5 (9.4-12.3) fl Neut % (Auto) 89.1 H (34.0-71.1) % Lymph % (Auto) 7.5 L (19.3-51.7) % Ashley % (Auto) 3.0 L (4.7-12.5) % Eos % (Auto) 0 L (0.7-5.8) Baso % (Auto) 0.0 L (0.1-1.2) % Neut # (Auto) 9.83 H (1.56-6.13) K/mm3 Lymph # (Auto) 0.83 L (1.18-3.74) K/mm3 Ashley # (Auto) 0.33 (0.24-0.36) K/mm3 Eos # (Auto) 0.00 L (0.04-0.36) K/mm3 Baso # (Auto) 0.00 L (0.01-0.08) K/mm3 Manual Slide Review Abnormal smear Sodium 138 (136-145) mEq/L Potassium 5.2 H (3.5-5.1) mEq/L Chloride 102 (98-107) mEq/L Carbon Dioxide 30 (21-32) mEq/L Anion Gap 11.2 (5-15) BUN 40 H (7-18) mg/dL Creatinine 1.1 H (0.55-1.02) mg/dL Est Cr Clr Drug Dosing 42.85 mL/min Estimated GFR (MDRD) 50 (>60) mL/min BUN/Creatinine Ratio 36.4 H (14-18) Glucose 258 H (80-115) mg/dL POC Glucose 278 H (80-115) mg/dL Calcium 9.1 (8.5-10.1) mg/dL Magnesium 2.2 (1.8-2.4) mg/dl C-Reactive Protein 0.2 (<1.0) mg/dL Antoni Results Last 24 Hours: Microbiology 12/25/17 12:20 Aerobic Blood Culture - Preliminary Blood - Venous - Lab Draw NO GROWTH AFTER 4 DAYS Anaerobic Blood Culture - Final 12/25/17 12:30 Aerobic Blood Culture - Preliminary Blood - Venous NO GROWTH AFTER 4 DAYS Anaerobic Blood Culture - Preliminary NO GROWTH AFTER 4 DAYS Med Orders - Current: Current Medications Acetaminophen (Tylenol) 650 mg PO Q4H PRN PRN Reason: Pain (Mild 1-3)/fever Last Admin: 12/27/17 06:15 Dose: 650 mg Hydrocodone Bitart/Acetaminophen ([place] 325-5 Mg) 1 tab PO Q4H PRN PRN Reason: Pain (moderate 4-6) Last Admin: 12/30/17 06:26 Dose: 1 tab Albuterol/Ipratropium (Duoneb 3.0-0.5 Mg/3 Ml) 3 ml NEB Q4H PRN PRN Reason: Shortness Of Breath/wheezing Last Admin: 12/29/17 18:06 Dose: 3 ml Albuterol/Ipratropium (Duoneb 3.0-0.5 Mg/3 Ml) 3 ml NEB TID@0700,1400,2100 [facility] Last Admin: 12/30/17 08:04 Dose: 3 ml Allopurinol (Zyloprim) 300 mg PO DAILY [facility] Last Admin: 12/30/17 08:59 Dose: 300 mg Amoxicillin (Amoxil) 500 mg PO Q12H [facility] Last Admin: 12/29/17 22:01 Dose: 500 mg Aspirin (Aspirin) 81 mg PO DAILY [facility] Last Admin: 12/30/17 08:58 Dose: 81 mg Benzocaine/Menthol (Cepacol Sore Throat) 1 lozenge MUCMEM Q4H PRN PRN Reason: Sore Throat Last Admin: 12/30/17 08:59 Dose: 1 lozenge Bisacodyl (Dulcolax) 5 mg PO DAILY PRN PRN Reason: Constipation Cholecalciferol (Vitamin D3) 5,000 unit PO Th [facility] Last Admin: 12/27/17 08:32 Dose: 5,000 unit Docusate Sodium (Colace) 100 mg PO BID PRN PRN Reason: Constipation Enoxaparin Sodium (Lovenox) 40 mg SUBCUT DAILY [facility] Last Admin: 12/30/17 08:58 Dose: 40 mg Flunisolide (Nasalide Nasal [place]) 0 ml NASBOTH BID [facility] Last Admin: 12/30/17 08:57 Dose: 1 spray Glipizide (Glucotrol Xl) 10 mg PO BID [facility] Last Admin: 12/30/17 08:59 Dose: 10 mg Guaifenesin/Phenylephrine HCl (Robitussin Dm) 10 ml PO 07,14,21 [facility] Last Admin: 12/30/17 06:27 Dose: 10 ml Hydrochlorothiazide (Hydrochlorothiazide) 25 mg PO DAILY [facility] Last Admin: 12/30/17 08:59 Dose: 25 mg Promethazine HCl 12.5 mg/ (Sodium Chloride) 50.5 mls @ 100 mls/hr IV Q6H PRN PRN Reason: Nausea/Vomiting Azithromycin 500 mg/ Sodium (Chloride) 250 mls @ 125 mls/hr IV DAILY@1600 [facility] Last Admin: 12/29/17 14:59 Dose: 125 mls/hr Insulin Glargine (Lantus Solostar) 70 units SUBCUT BID [facility] Last Admin: 12/30/17 09:00 Dose: 70 units Insulin Human Lispro (Humalog) 0 unit SUBCUT QIDACANDBED [facility]; Protocol Last Admin: 12/30/17 06:25 Dose: 9 units Lisinopril (Prinivil) 10 mg PO DAILY [facility] Last Admin: 12/30/17 08:58 Dose: 10 mg Lorazepam (Ativan) 0.5 mg IV Q6H PRN PRN Reason: Anxiety Last Admin: 12/27/17 23:52 Dose: 0.5 mg Magnesium Oxide (Magnesium Oxide) 400 mg PO BID [facility] Last Admin: 12/30/17 08:58 Dose: 400 mg Metformin HCl (Glucophage) 1,000 mg PO BID [facility] Last Admin: 12/30/17 09:19 Dose: 1,000 mg Methylprednisolone Sodium Succinate (Solu-Medrol) 60 mg IVPUSH Q12H [facility] Last Admin: 12/30/17 08:57 Dose: 60 mg Miscellaneous Information (Remove Patch) 1 ea TRDERM DAILY [facility] Last Admin: 12/30/17 09:19 Dose: 1 ea Morphine Sulfate (Morphine) 1 mg IVPUSH Q4H PRN PRN Reason: Other Stop: 12/31/17 15:35 Last Admin: 12/30/17 09:01 Dose: 1 mg Nicotine (Habitrol) 21 mg TRDERM DAILY [facility] Last Admin: 12/30/17 08:58 Dose: 21 mg Ondansetron HCl (Zofran) 4 mg IV Q6H PRN PRN Reason: Nausea/Vomiting Oxymetazoline HCl (Afrin Original 0.05% Nasal [place]) 0 ml DEE Q12HR PRN PRN Reason: Nasal Congestion Last Admin: 12/30/17 08:57 Dose: 1 spray Pantoprazole Sodium (Protonix) 40 mg PO DAILY@0700 [facility] Last Admin: 12/30/17 06:26 Dose: 40 mg Phenol/Menthol (Chloraseptic) 15 ml MUCMEM Q2H PRN PRN Reason: Sore Throat Polyethylene Glycol (Miralax) 17 gm PO DAILY PRN PRN Reason: Constipation Senna/Docusate Sodium (Senna Plus) 1 tab PO BID PRN PRN Reason: Constipation Sertraline HCl (Zoloft) 50 mg PO DAILY [facility] Last Admin: 12/30/17 08:59 Dose: 50 mg Simvastatin (Zocor) 5 mg PO BEDTIME [facility] Last Admin: 12/29/17 21:52 Dose: 5 mg Sodium Chloride (Saline Flush) 10 ml FLUSH ASDIRECTED PRN PRN Reason: Keep Vein Open Last Admin: 12/25/17 12:20 Dose: 10 ml Temazepam (Restoril) 7.5 mg PO BEDTIME PRN PRN Reason: Sleep Last Admin: 12/27/17 21:15 Dose: 7.5 mg Discontinued Medications Albuterol/Ipratropium (Duoneb 3.0-0.5 Mg/3 Ml) Confirm Administered Dose 3 ml .ROUTE .STK-MED ONE Stop: 12/25/17 11:57 Last Admin: 12/25/17 12:04 Dose: 3 ml Albuterol/Ipratropium (Duoneb 3.0-0.5 Mg/3 Ml) 3 ml NEB ONETIME ONE Stop: 12/25/17 12:06 Last Admin: 12/25/17 12:07 Dose: Not Given Amoxicillin (Amoxil) 500 mg PO ONETIME ONE Stop: 12/25/17 13:36 Last Admin: 12/25/17 14:03 Dose: 500 mg Amoxicillin (Amoxil) 500 mg PO Q12H [place] PRN Reason: Nausea/Vomiting Last Admin: 12/26/17 10:54 Dose: 500 mg Azithromycin (Zithromax) 500 mg IV Q24H [place] Bumetanide (Bumex) 1 mg IVPUSH ONETIME ONE Stop: 12/27/17 09:31 Last Admin: 12/27/17 09:38 Dose: 1 mg Sodium Chloride (Normal Saline) 1,000 mls @ 999 mls/hr IV ONETIME ONE Stop: 12/25/17 14:28 Last Admin: 12/25/17 13:46 Dose: 999 mls/hr Azithromycin 500 mg/ Sodium (Chloride) 250 mls @ 250 mls/hr IV ONETIME ONE Stop: 12/25/17 16:42 Last Admin: 12/25/17 16:16 Dose: 250 mls/hr Sodium Chloride (Normal Saline) 1,000 mls @ 100 mls/hr IV ASDIRECTED [facility] Last Admin: 12/27/17 04:16 Dose: 100 mls/hr Insulin Glargine (Lantus Solostar) 60 units SUBCUT BEDTIME [facility] Last Admin: 12/25/17 23:43 Dose: 60 units Insulin Glargine (Lantus Solostar) 70 units SUBCUT BEDTIME [facility] Last Admin: 12/27/17 20:25 Dose: 70 units Insulin Glargine (Lantus Solostar) 70 units SUBCUT BID [facility] Insulin Glargine (Lantus Solostar) 60 units SUBCUT BID [facility] Last Admin: 12/29/17 09:12 Dose: 60 units Ketorolac Tromethamine (Toradol) 30 mg IVPUSH ONETIME ONE Stop: 12/25/17 13:36 Last Admin: 12/25/17 14:00 Dose: 30 mg Methylprednisolone Sodium Succinate (Solu-Medrol) 125 mg IVPUSH ONETIME ONE Stop: 12/25/17 12:04 Last Admin: 12/25/17 12:27 Dose: 125 mg Methylprednisolone Sodium Succinate (Solu-Medrol) 60 mg IVPUSH TID@2100,0700, 1400 [facility] Last Admin: 12/26/17 14:24 Dose: 60 mg Morphine Sulfate (Morphine) 0.5 mg IVPUSH ONETIME ONE Stop: 12/27/17 09:33 Last Admin: 12/27/17 09:40 Dose: 0.5 mg Prednisone (Prednisone) 20 mg PO WITHBREAKFAST [facility] Last Admin: 12/28/17 06:35 Dose: 20 mg - Exam Quality Assessment: Supplemental Oxygen General: Alert, Oriented, Cooperative, No Acute Distress HEENT: Pupils Equal, Pupils Reactive, EOMI, Mucous Membr. Moist/Platea Neck: Supple, Trachea Midline, No JVD, No Thyromegaly, Other (short and thick and w/o accessory muscle use) Lungs: Other (distant lung sound). No: Wheezing Cardiovascular: Other (distant heart sound) GI/Abdominal Exam: Normal Bowel Sounds, Soft, Non-Tender, No Organomegaly, No Distention, No Abnormal Bruit (Female) Exam: Deferred Back Exam: Normal Inspection, Decreased Range of Motion Extremities: Normal Inspection, Normal Range of Motion, Non-Tender, No Pedal Edema, Normal Capillary Refill Peripheral Pulses: 2+: Dorsalis Pedis (L), Dorsalis Pedis (R) Skin: Warm, Dry, Intact Neurological: No New Focal Deficit Psy/Mental Status: Alert, Normal Affect, Normal Mood - Problem List Review Problem List Initiated/Reviewed/Updated: Yes - My Orders Last 24 Hours: My Active Orders 12/29/17 21:00 Dextromethorphan/guaiFENesin [Robitussin DM] 10 ml PO 07,14,21 Insulin Glarg,Human.Rec.Analog [LantUS Solostar] 70 units SUBCUT BID 12/30/17 10:19 Dextromethorphan/guaiFENesin [Robitussin DM] 10 ml PO Q4H PRN 12/31/17 05:11 BASIC METABOLIC PANEL,BMP [CHEM] AM C-REACTIVE PROTEIN [CHEM] AM CBC WITH AUTO DIFF [HEME] AM MAGNESIUM [CHEM] AM - Plan Plan:: Assessment/Plan: Acute: Strep Pharyngitis/Sore Throat, Stable - Pos on screening - Received one time dose of oral Amoxicillin in ED; per pharmacy will resume it due to resistance with Macrolides--> Continue Amoxicillin - PRN lozenges and or throat spray COPD Exacerbation, Continues to Improve - 2/2 Non-compliance - She still smokes cigarettes - Risk Factors: COPD, Chronic Respiratory Failure on 3L NC, and Morbid Obesity - Continue Steroids, Bronchodilators, Magnesium, Supplemental O2, and RT Care - Continue IV Steroid 40 mg IV BID, Scheduled Albuterol TID, and 400 mg Mag Ox BID - Discontinue IV Azithromycin 250 mg daily for anti-inflammatory agent for COPD Exacerbation Hyperglycemia with DM2 with Peripheral Neuropathy - BS in the 300s--> now improved in the 200s - She is on Metformin 1000 mg po BID, Glipizide 10 mg po BID and Lantus 60 units SubQ QHS and high dose ISS - Continue IV steroids; will change Lantus to 70 from 60 units SubQ BID - Consider SGLT2 and GLP-I Inhibitors-defer to PCP Nicotine Use Disorder - Still smokes cigarettes - Counseled on smoking cessation - Nicotine patch daily Mild Hyperkalemia - K 5.2 - Continue to monitor Medical Non-Adherence - Counseled on the importance of compliance with medical treatment Chronic: HTN, controlled HLD COPD/Asthma Back Pain Gout OA/DJD Migraines Anxiety Depression Obesity with BMI of 44 Plan: She is clinically stable and continue to slowly improve Continue current treatment Routine AM Labs Continue RT/PT/OT SW/CM for d/c planning Additional orders as above Code Status: 1 Possible discharge in AM
[2017-12-30] MEDS: Amoxicillin 500 MG Cap PO SCH ×2 (11:44→22:04)
[2017-12-30] MEDS ORDERED: Azithromycin 500 MG in Sodium Chloride 0.9% 250 ML IV SCH (16:00)
[2017-12-30] MEDS: Simvastatin 10 MG Tab PO SCH (20:49)
[2017-12-30] MEDS: Temazepam 7.5 MG Cap PO PRN (21:03)
[2017-12-31] MEDS: Pantoprazole 40 MG Tab.CR PO SCH (06:04)
[2017-12-31] MEDS: guaiFENesin/Dextromethorphan 100-10 MG/5 ML Soln 5 ML Cup PO SCH ×2 (06:04→13:09)
[2017-12-31] MEDS: Albuterol/Ipratropium 3.0-0.5 MG/3 ML Neb Soln NEB SCH ×2 (06:30→13:20)
[2017-12-31] MEDS: Insulin Lispro 100 Unit/ML 3 ML KwikPen SUBCUT SCH ×2 (07:38→11:24)
[2017-12-31] MEDS: Aspirin 81 MG Tab.Chew PO SCH (09:23)
[2017-12-31] MEDS: Lisinopril 10 MG Tab PO SCH (09:23)
[2017-12-31] MEDS: methylPREDNISolone Sodium Succinate 40 MG/1 ML SDV IVPUSH SCH (09:23)
[2017-12-31] MEDS: Sertraline 50 MG Tab PO SCH (09:23)
[2017-12-31] MEDS: Hydrochlorothiazide 25 MG Tab PO SCH (09:23)
[2017-12-31] MEDS: metFORMIN 500 MG Tab PO SCH (09:23)
[2017-12-31] MEDS: glipiZIDE 5 MG Tab.ER PO SCH (09:23)
[2017-12-31] MEDS: Oxymetazoline 0.05% Nasal Spray 15 ML Bottle NAS PRN (09:24)
[2017-12-31] MEDS: Magnesium Oxide 400 MG Tab PO SCH (09:24)
[2017-12-31] MEDS: Allopurinol 100 MG Tab PO SCH (09:24)
[2017-12-31] MEDS: Nicotine 21 MG/24 Hr Patch TRDERM SCH (09:25)
[2017-12-31] MEDS: Enoxaparin 40 MG/0.4 ML Syringe SUBCUT SCH (09:25)
[2017-12-31] MEDS: Insulin Glargine,Human Rec. Analog 100 Units/ML 3 ML Pen SUBCUT SCH (09:25)
--- NOTE | 2017-12-31 09:37 | PCM.DCSUM1 ---
Discharge Summary - Hospital Course Brief History: This is a 67 yo elderly white female with past medical hx/o HTN, HLD, COPD/Asthma, Back Pain, Gout, OA/DJD, DM2 with Peripheral Neuropathy, Migraines, Anxiety, Depression, and Obesity with BMI of 44 18 for evaluation of worsening shortness of breath that started a few days ago. Her chief complaint is associated with generalized body aches, sore throat, congestion, and nonproductive cough. She also reports feeling feverish but no chills. Patient carries a history of COPD and she is on 2 L nasal cannula for supplemental O2. She did give herself neb treatment but her symptoms did not improve. Therefore she comes in to the emergency department for further management. Her initial workup in emergency department shows a CBC remarkable for WBC of 14.42, MCHC of 31.2, RDW of 49.1, neutrophils of 87%, and lymphocytes of 8%. Her coagulation study shows a d-dimer of 0.45. Her chemistry is significant for BUN of 21, creatinine of 1.2, glucose of 194, and lactic acid of 2.5, and CRP of 2.1. Her UA is not suggestive of UTI. Her Mycoplasma is negative but her group A streptococcal rapid screen test is positive. Chest x-ray shows no acute abnormal findings. Patient is being admitted for treatment for acute pharyngitis and COPD exacerbation. She is full code. 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 Qualified Code(s): E11.65 - Type 2 diabetes mellitus with hyperglycemia (2) Nicotine dependence with current use SNOMED Code(s): 338691639 ICD Code: F17.200 - NICOTINE DEPENDENCE, UNSPECIFIED, UNCOMPLICATED Status : Chronic (3) Hyperkalemia SNOMED Code(s): 15882307 ICD Code: E87.5 - HYPERKALEMIA Status: Resolved (4) Medical non-compliance SNOMED Code(s): 525156068 ICD Code: Z91.19 - PATIENT'S NONCOMPLIANCE W OTH MEDICAL TREATMENT AND REGIMEN Status: Chronic Problem Details: - Still smoke cigarrettes - She is not ready to quit (5) COPD exacerbation SNOMED Code(s): 532214679066064 ICD Code: J44.1 - CHRONIC OBSTRUCTIVE PULMONARY DISEASE W (ACUTE) EXACERBATION Status: Resolved Priority: High (6) Strep pharyngitis SNOMED Code(s): 86108199 ICD Code: J02.0 - STREPTOCOCCAL PHARYNGITIS Status: Acute Problem Details : - Received Amoxicillin Treatment - Will complete a 10 day course treatment - Patient Summary/Data Operative Procedure(s) Performed: None Complications: None Consults: Consultations 12/25/17 15:36 Consult to Case Management [CONS] Routine Consult to Chief Lock Operator [CONS] Routine Consult to Spiritual Care [CONS] Routine Respiratory Care Assess and Treatment [CONS] Routine 12/25/17 17:14 Consult to Occupational Therapy [OT Evaluation and Treatment] [CONS] Routine PT Evaluation and Treatment [CONS] Routine Labs Pending at D/C: None Recommended Follow-up Testing/Procedures: None Planned Operative Procedure(s) after DC: None Hospital Course: Patient was primarily admittde for medical treatd of streptococcal pharyngitis and copd exacernation. - Patient Instructions Diet: Heart Healthy Diet, Usual Diet as Tolerated, Diabetic Diet, Weight Loss Diet Activity: As Tolerated Driving: Do Not Drive Showering/Bathing: May Shower Notify Provider of: Fever, Increased Pain, Nausea and/or Vomiting Other/Special Instructions: - Please take all new medications as directed. - Resume all home medications as directed and continue routine activities as tolerated. - Practice proper hygiene and wear mask until you complete your antibiotic treatment. - Quit smoking! - Recommend glucose check before each meal and at bedtime. Show log on follow up appointment with your PCP. - Call or follow up with your PCP for any questions or concerns after discharge. - Follow up with you PCP in 1 week. - Come back or seek immediate care should your symptoms persist or get worse - Discharge Plan *PRESCRIPTION DRUG MONITORING PROGRAM REVIEWED*: No *COPY OF PRESCRIPTION DRUG MONITORING REPORT IN PATIENT RUCHI: No Prescriptions/Med Rec: Oxymetazoline [Afrin Original 0.05% Nasal [place]] 15 ml DEE Q12HR PRN #1 bottle PRN Reason: Nasal Congestion Amoxicillin 500 mg PO BID #12 tab Benzocaine/Menthol [Cepacol Sore Throat Lozenge] 1 each MM Q4H PRN #20 lozenge PRN Reason: Sore Throat Dextromethorphan/guaiFENesin [Robitussin DM] 10 ml PO Q4H PRN #30 cup PRN Reason: Cough Dextrose [Glucose] 4 gm PO ASDIRECTED PRN #15 tab.chew PRN Reason: Hypoglycemia Phenol [Chloraseptic] 15 ml MUCMEM Q2H PRN #1 bottle PRN Reason: Sore Throat Saccharomyces Boulardii [Florastor] 250 mg PO BID #30 cap Home Medications: Home Meds Allopurinol [Zyloprim] 300 mg PO DAILY 04/18/15 [History] Aspirin [Sacha Chewable Aspirin] 81 mg PO DAILY 04/18/15 [History] Lisinopril 10 mg PO DAILY 04/18/15 [History] Lovastatin 10 mg PO BEDTIME 04/18/15 [History] metFORMIN [Glucophage] 1,000 mg PO BID 04/18/15 [History] Sertraline [Zoloft] 50 tab PO DAILY 08/26/15 [History] glipiZIDE [Glipizide ER] 10 mg PO BID #60 01/23/17 [Rx] Albuterol/Ipratropium [DuoNeb 3.0-0.5 MG/3 ML] 3 ml NEB Q6H PRN 06/28/17 [ History] Meloxicam [Mobic] 15 mg PO DAILY 06/28/17 [History] Albuterol/Ipratropium [DuoNeb 3.0-0.5 MG/3 ML] 3 ml INH QID 12/25/17 [History] Cholecalciferol (Vitamin D3) [Vitamin D] 5,000 unit PO WEEKLY 12/25/17 [History] Pantoprazole Sodium [Protonix] 20 mg PO DAILY 12/25/17 [History] hydroCHLOROthiazide [Hydrochlorothiazide] 25 mg PO DAILY 12/25/17 [History] Amoxicillin 500 mg PO BID #12 tab 12/31/17 [Rx] Benzocaine/Menthol [Cepacol Sore Throat Lozenge] 1 each MM Q4H PRN #20 lozenge 12/31/17 [Rx] Dextromethorphan/guaiFENesin [Robitussin DM] 10 ml PO Q4H PRN #30 cup 12/31/17 [ Rx] Dextrose [Glucose] 4 gm PO ASDIRECTED PRN #15 tab.chew 12/31/17 [Rx] Insulin Degludec [Tresiba Flextouch U-200] 70 unit SQ BID #0 12/31/17 [Rx] Oxymetazoline [Afrin Original 0.05% Nasal [place]] 15 ml DEE Q12HR PRN #1 bottle 12/31/17 [Rx] Phenol [Chloraseptic] 15 ml MUCMEM Q2H PRN #1 bottle 12/31/17 [Rx] Saccharomyces Boulardii [Florastor] 250 mg PO BID #30 cap 12/31/17 [Rx] Patient Handouts: Chronic Obstructive Pulmonary Disease Exacerbation, Easy-to- Read, Hyperkalemia, [id number], Obesity Hypoventilation Syndrome, Strep Throat , [id number], Hyperglycemia, [id number], Pharyngitis, [id number]-[id number], Steps to Quit Smoking, Obesity, Adult, Lvoc-fw-Mybm Referrals: Lisandra Mazariegos PA-C [Primary Care Provider] - (Please call and schedule a follow-up appointment with your primary care provider within 1 week of discharge. ) - Discharge Summary/Plan Comment DC Time >30 min.: Yes (mins) Discharge Summary/Plan Comment: Discharge to Home - General Info Date of Service: 12/31/17 Admission Dx/Problem (Free Text: Admission Diagnosis/Problem Admission Diagnosis/Problem COPD, Severe chronic obstructive pulmonary disease Subjective Update: Follow Up Functional Status: Reports: Pain Controlled, Tolerating Diet, Ambulating, Urinating - Review of Systems General: Denies: Fever, Weakness, Fatigue, Malaise, Chills HEENT: Reports: No Symptoms Pulmonary: Reports: Shortness of Breath. Denies: Cough, Sputum, Wheezing Cardiovascular: Denies: Chest Pain, Dyspnea on Exertion, Lightheadedness Gastrointestinal: Denies: Abdominal Pain, Nausea, Vomiting Genitourinary: Denies: No Symptoms Musculoskeletal: Denies: No Symptoms Skin: Denies: Cyanosis, Mottled, Pallor, Diaphoresis, Rash Neurological: Denies: Confusion, Difficulty Walking, Weakness, Gait Disturbance Psychiatric: Denies: Depression, Anxiety, Agitation, Hallucinations Systems Review Comment: No overnight or acute issue. She feels a little better near her baseline. She is afebrile and her CRP is within normal limits. Her K level is now back to normal level as well. She has no complaints this AM. She is agreeable to go home as planned yesterday. - Patient Data Vitals - Most Recent: Last Vital Signs Temp 36.8 C 12/31/17 09:06 Pulse 86 12/31/17 09:06 Resp 20 12/31/17 09:06 BP 132/82 12/31/17 09:06 Pulse Ox 93 L 12/31/17 09:06 Weight - Most Recent: 116.658 kg I&O - Last 24 hours: Intake & Output 12/30/17 12/31/17 12/31/17 22:59 06:59 14:59 Intake Total 1120 550 Output Total 1250 1300 Balance -130 -750 Lab Results - Last 24 hrs: Laboratory Results - last 24 hr 12/30/17 12/30/17 12/30/17 Range/Units 11:01 17:02 20:45 WBC (3.98-10.04) K/mm3 RBC (3.98-5.22) M/mm3 Hgb (11.2-15.7) gm/L Hct (34.1-44.9) % MCV (79.4-94.8) fl MCH (25.6-32.2) pg MCHC (32.2-35.5) g/dl RDW Std Deviation (36.4-46.3) fL Plt Count (182-369) K/mm3 MPV (9.4-12.3) fl Neut % (Auto) (34.0-71.1) % Lymph % (Auto) (19.3-51.7) % [place] % (Auto) (4.7-12.5) % Eos % (Auto) (0.7-5.8) Baso % (Auto) (0.1-1.2) % Neut # (Auto) (1.56-6.13) K/mm3 Lymph # (Auto) (1.18-3.74) K/mm3 [place] # (Auto) (0.24-0.36) K/mm3 Eos # (Auto) (0.04-0.36) K/mm3 Baso # (Auto) (0.01-0.08) K/mm3 Manual Slide Review Sodium (136-145) mEq/L Potassium (3.5-5.1) mEq/L Chloride (98-107) mEq/L Carbon Dioxide (21-32) mEq/L Anion Gap (5-15) BUN (7-18) mg/dL Creatinine (0.55-1.02) mg/dL Est Cr Clr Drug Dosing mL/min Estimated GFR (MDRD) (>60) mL/min BUN/Creatinine Ratio (14-18) Glucose (80-115) mg/dL POC Glucose 258 H 213 H 258 H (80-115) mg/dL Calcium (8.5-10.1) mg/dL Magnesium (1.8-2.4) mg/dl C-Reactive Protein (<1.0) mg/dL 12/31/17 12/31/17 12/31/17 Range/Units 06:02 06:03 06:03 WBC 14.53 H (3.98-10.04) K/mm3 RBC 3.85 L (3.98-5.22) M/mm3 Hgb 10.5 L (11.2-15.7) gm/L Hct 34.8 (34.1-44.9) % MCV 90.4 (79.4-94.8) fl MCH 27.3 (25.6-32.2) pg MCHC 30.2 L (32.2-35.5) g/dl RDW Std Deviation 50.5 H (36.4-46.3) fL Plt Count 230 (182-369) K/mm3 MPV 10.2 (9.4-12.3) fl Neut % (Auto) 86.7 H (34.0-71.1) % Lymph % (Auto) 8.7 L (19.3-51.7) % [place] % (Auto) 4.3 L (4.7-12.5) % Eos % (Auto) 0 L (0.7-5.8) Baso % (Auto) 0.0 L (0.1-1.2) % Neut # (Auto) 12.61 H (1.56-6.13) K/mm3 Lymph # (Auto) 1.26 (1.18-3.74) K/mm3 [place] # (Auto) 0.62 H (0.24-0.36) K/mm3 Eos # (Auto) 0.00 L (0.04-0.36) K/mm3 Baso # (Auto) 0.00 L (0.01-0.08) K/mm3 Manual Slide Review Abnormal smear Sodium 138 (136-145) mEq/L Potassium 4.9 (3.5-5.1) mEq/L Chloride 100 (98-107) mEq/L Carbon Dioxide 34 H (21-32) mEq/L Anion Gap 8.9 (5-15) BUN 40 H (7-18) mg/dL Creatinine 1.2 H (0.55-1.02) mg/dL Est Cr Clr Drug Dosing 39.28 mL/min Estimated GFR (MDRD) 45 (>60) mL/min BUN/Creatinine Ratio 33.3 H (14-18) Glucose 187 H (80-115) mg/dL POC Glucose 207 H (80-115) mg/dL Calcium 9.1 (8.5-10.1) mg/dL Magnesium 2.1 (1.8-2.4) mg/dl C-Reactive Protein < 0.2 (<1.0) mg/dL [place] Results - Last 24 hrs: Microbiology 12/25/17 12:30 Aerobic Blood Culture - Preliminary Blood - Venous NO GROWTH AFTER 5 DAYS Anaerobic Blood Culture - Preliminary NO GROWTH AFTER 5 DAYS 12/25/17 12:20 Aerobic Blood Culture - Preliminary Blood - Venous - Lab Draw NO GROWTH AFTER 5 DAYS Anaerobic Blood Culture - Final Med Orders - Current: Current Medications Acetaminophen (Tylenol) 650 mg PO Q4H PRN PRN Reason: Pain (Mild 1-3)/fever Last Admin: 12/27/17 06:15 Dose: 650 mg Hydrocodone Bitart/Acetaminophen ([place] 325-5 Mg) 1 tab PO Q4H PRN PRN Reason: Pain (moderate 4-6) Last Admin: 12/30/17 06:26 Dose: 1 tab Albuterol/Ipratropium (Duoneb 3.0-0.5 Mg/3 Ml) 3 ml NEB Q4H PRN PRN Reason: Shortness Of Breath/wheezing Last Admin: 12/29/17 18:06 Dose: 3 ml Albuterol/Ipratropium (Duoneb 3.0-0.5 Mg/3 Ml) 3 ml NEB TID@0700,1400,2100 [facility] Last Admin: 12/31/17 06:30 Dose: 3 ml Allopurinol (Zyloprim) 300 mg PO DAILY [facility] Last Admin: 12/30/17 08:59 Dose: 300 mg Amoxicillin (Amoxil) 500 mg PO Q12H [facility] Last Admin: 12/30/17 22:04 Dose: 500 mg Aspirin (Aspirin) 81 mg PO DAILY [facility] Last Admin: 12/30/17 08:58 Dose: 81 mg Benzocaine/Menthol (Cepacol Sore Throat) 1 lozenge MUCMEM Q4H PRN PRN Reason: Sore Throat Last Admin: 12/30/17 14:33 Dose: 1 lozenge Bisacodyl (Dulcolax) 5 mg PO DAILY PRN PRN Reason: Constipation Cholecalciferol (Vitamin D3) 5,000 unit PO Th [facility] Last Admin: 12/27/17 08:32 Dose: 5,000 unit Docusate Sodium (Colace) 100 mg PO BID PRN PRN Reason: Constipation Enoxaparin Sodium (Lovenox) 40 mg SUBCUT DAILY [facility] Last Admin: 12/30/17 08:58 Dose: 40 mg Flunisolide (Nasalide Nasal [place]) 0 ml NASBOTH BID [facility] Last Admin: 12/30/17 20:50 Dose: 1 spray Glipizide (Glucotrol Xl) 10 mg PO BID [facility] Last Admin: 12/30/17 20:48 Dose: 10 mg Guaifenesin/Phenylephrine HCl (Robitussin Dm) 10 ml PO 07,14,21 [facility] Last Admin: 12/31/17 06:04 Dose: 10 ml Guaifenesin/Phenylephrine HCl (Robitussin Dm) 10 ml PO Q4H PRN PRN Reason: Cough Hydrochlorothiazide (Hydrochlorothiazide) 25 mg PO DAILY [facility] Last Admin: 12/30/17 08:59 Dose: 25 mg Promethazine HCl 12.5 mg/ (Sodium Chloride) 50.5 mls @ 100 mls/hr IV Q6H PRN PRN Reason: Nausea/Vomiting Insulin Glargine (Lantus Solostar) 70 units SUBCUT BID [facility] Last Admin: 12/30/17 20:53 Dose: 70 units Insulin Human Lispro (Humalog) 0 unit SUBCUT QIDACANDBED [facility]; Protocol Last Admin: 12/31/17 07:38 Dose: 6 units Lisinopril (Prinivil) 10 mg PO DAILY [facility] Last Admin: 12/30/17 08:58 Dose: 10 mg Lorazepam (Ativan) 0.5 mg IV Q6H PRN PRN Reason: Anxiety Last Admin: 12/27/17 23:52 Dose: 0.5 mg Magnesium Oxide (Magnesium Oxide) 400 mg PO BID [facility] Last Admin: 12/30/17 20:47 Dose: 400 mg Metformin HCl (Glucophage) 1,000 mg PO BID [facility] Last Admin: 12/30/17 20:48 Dose: 1,000 mg Methylprednisolone Sodium Succinate (Solu-Medrol) 40 mg IVPUSH Q12H [facility] Last Admin: 12/30/17 20:50 Dose: 40 mg Miscellaneous Information (Remove Patch) 1 ea TRDERM DAILY [facility] Last Admin: 12/30/17 09:19 Dose: 1 ea Morphine Sulfate (Morphine) 1 mg IVPUSH Q4H PRN PRN Reason: Other Stop: 12/31/17 15:35 Last Admin: 12/30/17 21:03 Dose: 1 mg Nicotine (Habitrol) 21 mg TRDERM DAILY [facility] Last Admin: 12/30/17 08:58 Dose: 21 mg Ondansetron HCl (Zofran) 4 mg IV Q6H PRN PRN Reason: Nausea/Vomiting Oxymetazoline HCl (Afrin Original 0.05% Nasal [place]) 0 ml DEE Q12HR PRN PRN Reason: Nasal Congestion Last Admin: 12/30/17 08:57 Dose: 1 spray Pantoprazole Sodium (Protonix) 40 mg PO DAILY@0700 [facility] Last Admin: 12/31/17 06:04 Dose: 40 mg Phenol/Menthol (Chloraseptic) 15 ml MUCMEM Q2H PRN PRN Reason: Sore Throat Polyethylene Glycol (Miralax) 17 gm PO DAILY PRN PRN Reason: Constipation Senna/Docusate Sodium (Senna Plus) 1 tab PO BID PRN PRN Reason: Constipation Sertraline HCl (Zoloft) 50 mg PO DAILY [facility] Last Admin: 12/30/17 08:59 Dose: 50 mg Simvastatin (Zocor) 5 mg PO BEDTIME [facility] Last Admin: 12/30/17 20:49 Dose: 5 mg Sodium Chloride (Saline Flush) 10 ml FLUSH ASDIRECTED PRN PRN Reason: Keep Vein Open Last Admin: 12/25/17 12:20 Dose: 10 ml Temazepam (Restoril) 7.5 mg PO BEDTIME PRN PRN Reason: Sleep Last Admin: 12/30/17 21:03 Dose: 7.5 mg Discontinued Medications Albuterol/Ipratropium (Duoneb 3.0-0.5 Mg/3 Ml) Confirm Administered Dose 3 ml .ROUTE .STK-MED ONE Stop: 12/25/17 11:57 Last Admin: 12/25/17 12:04 Dose: 3 ml Albuterol/Ipratropium (Duoneb 3.0-0.5 Mg/3 Ml) 3 ml NEB ONETIME ONE Stop: 12/25/17 12:06 Last Admin: 12/25/17 12:07 Dose: Not Given Amoxicillin (Amoxil) 500 mg PO ONETIME ONE Stop: 12/25/17 13:36 Last Admin: 12/25/17 14:03 Dose: 500 mg Amoxicillin (Amoxil) 500 mg PO Q12H [place] PRN Reason: Nausea/Vomiting Last Admin: 12/26/17 10:54 Dose: 500 mg Azithromycin (Zithromax) 500 mg IV Q24H [facility] Bumetanide (Bumex) 1 mg IVPUSH ONETIME ONE Stop: 12/27/17 09:31 Last Admin: 12/27/17 09:38 Dose: 1 mg Sodium Chloride (Normal Saline) 1,000 mls @ 999 mls/hr IV ONETIME ONE Stop: 12/25/17 14:28 Last Admin: 12/25/17 13:46 Dose: 999 mls/hr Azithromycin 500 mg/ Sodium (Chloride) 250 mls @ 250 mls/hr IV ONETIME ONE Stop: 12/25/17 16:42 Last Admin: 12/25/17 16:16 Dose: 250 mls/hr Azithromycin 500 mg/ Sodium (Chloride) 250 mls @ 125 mls/hr IV DAILY@1600 [facility] Last Admin: 12/29/17 14:59 Dose: 125 mls/hr Sodium Chloride (Normal Saline) 1,000 mls @ 100 mls/hr IV ASDIRECTED [facility] Last Admin: 12/27/17 04:16 Dose: 100 mls/hr Azithromycin 500 mg/ Sodium (Chloride) 250 mls @ 125 mls/hr IV DAILY@1600 [facility] Insulin Glargine (Lantus Solostar) 60 units SUBCUT BEDTIME [facility] Last Admin: 12/25/17 23:43 Dose: 60 units Insulin Glargine (Lantus Solostar) 70 units SUBCUT BEDTIME [facility] Last Admin: 12/27/17 20:25 Dose: 70 units Insulin Glargine (Lantus Solostar) 70 units SUBCUT BID [facility] Insulin Glargine (Lantus Solostar) 60 units SUBCUT BID [facility] Last Admin: 12/29/17 09:12 Dose: 60 units Ketorolac Tromethamine (Toradol) 30 mg IVPUSH ONETIME ONE Stop: 12/25/17 13:36 Last Admin: 12/25/17 14:00 Dose: 30 mg Methylprednisolone Sodium Succinate (Solu-Medrol) 125 mg IVPUSH ONETIME ONE Stop: 12/25/17 12:04 Last Admin: 12/25/17 12:27 Dose: 125 mg Methylprednisolone Sodium Succinate (Solu-Medrol) 60 mg IVPUSH TID@2100,0700, 1400 [facility] Last Admin: 12/26/17 14:24 Dose: 60 mg Methylprednisolone Sodium Succinate (Solu-Medrol) 60 mg IVPUSH Q12H [facility] Last Admin: 12/30/17 08:57 Dose: 60 mg Morphine Sulfate (Morphine) 0.5 mg IVPUSH ONETIME ONE Stop: 12/27/17 09:33 Last Admin: 12/27/17 09:40 Dose: 0.5 mg Prednisone (Prednisone) 20 mg PO WITHBREAKFAST [facility] Last Admin: 12/28/17 06:35 Dose: 20 mg - Exam Quality Assessment: Reports: Supplemental Oxygen General: Reports: Alert, Oriented, Cooperative, No Acute Distress, Other ( Morbidly Obese) HEENT: Reports: Pupils Equal, Pupils Reactive, EOMI, Mucous Membr. Moist/[place] Neck: Reports: Supple, Trachea Midline, No JVD, No Thyromegaly, Other (short and thick; no accessory muscle use) Lungs: Reports: Normal Respiratory Effort, Wheezing (mild expiratory wheezing) Cardiovascular: Reports: Other (distant heart sounds) GI/Abdominal Exam: Normal Bowel Sounds, Soft, Non-Tender, No Organomegaly, No Distention, No Abnormal Bruit, Other (Obese) (Female) Exam: Deferred Rectal (Female) Exam: Deferred Back Exam: Reports: Normal Inspection, Decreased Range of Motion Extremities: Normal Inspection, Normal Range of Motion, Non-Tender, No Pedal Edema, Normal Capillary Refill Skin: Reports: Warm, Dry, Intact Neurological: Reports: No New Focal Deficit Psy/Mental Status: Reports: Alert, Normal Affect, Normal Mood
[2017-12-31] MEDS: Amoxicillin 500 MG Cap PO SCH (11:24)
[2017-12-31 12:03] VITALS: BP 134/79
== END 2017-12-31 13:30 | disposition home or self-care (01) | DRG 191 ==
LOC: JD.ED 11:41 → JD.MS 14:16
PROVIDERS: ADMIT Internal Medicine; ATTEND Internal Medicine
DX: J44.1 Chronic obstructive pulmonary disease with (acute) exacerbation (principal); Z68.41 Body mass index [BMI] 40.0-44.9, adult; J96.11 Chronic respiratory failure with hypoxia; E66.01 Morbid (severe) obesity due to excess calories; J02.0 Streptococcal pharyngitis; H54.7 Unspecified visual loss; E78.00 Pure hypercholesterolemia, unspecified; R09.02 Hypoxemia; I10 Essential (primary) hypertension; G89.29 Other chronic pain; M54.9 Dorsalgia, unspecified; M10.9 Gout, unspecified; E11.40 Type 2 diabetes mellitus with diabetic neuropathy, unspecified; G43.909 Migraine, unspecified, not intractable, without status migrainosus; E78.5 Hyperlipidemia, unspecified; M19.90 Unspecified osteoarthritis, unspecified site; E11.42 Type 2 diabetes mellitus with diabetic polyneuropathy; F41.9 Anxiety disorder, unspecified; F17.210 Nicotine dependence, cigarettes, uncomplicated; E11.65 Type 2 diabetes mellitus with hyperglycemia; E87.5 Hyperkalemia; F32.9 Major depressive disorder, single episode, unspecified; Z99.81 Dependence on supplemental oxygen; Z88.1 Allergy status to other antibiotic agents; Z88.8 Allergy status to other drugs, medicaments and biological substances; R50.9 Fever, unspecified; R00.0 Tachycardia, unspecified; R11.0 Nausea; R06.02 Shortness of breath; R06.82 Tachypnea, not elsewhere classified; Z79.899 Other long term (current) drug therapy; Z79.82 Long term (current) use of aspirin; Z79.4 Long term (current) use of insulin; Z87.01 Personal history of pneumonia (recurrent); Z87.442 Personal history of urinary calculi; Z90.49 Acquired absence of other specified parts of digestive tract; Z90.710 Acquired absence of both cervix and uterus; Z91.19 Patient's noncompliance with other medical treatment and regimen
CPT/HCPCS: 36415; 71045; 80053; 81001; 83605; 84484; 85007; 85027; 85379; 86140; 86738; 87040 ×2; 87430; 93005; 94640; 96374; 96375; 99285; A9270; J1885; J2930; J7040; J7050; 80048; 82947; 82962; 83735; 85025; 93010; 94761; 97161-GP; 97165-GO; 97530-GO; 99284; J0456; J1650; J1815; J1815-GY; J2060; J2270; J2920; J3490; J7620-GY

== ENCOUNTER 2018-04-29 09:54 | Inpatient (IN) | payer MEDICARE, MEDICAID ==
[2018-04-29] MEDS ORDERED: Sodium Chloride 0.9% 10 ML Syringe FLUSH PRN (10:24)
[2018-04-29] MEDS ORDERED: Albuterol/Ipratropium 3.0-0.5 MG/3 ML Neb Soln NEB ONE ×2 (10:26→11:45)
[2018-04-29] MEDS ORDERED: methylPREDNISolone Sodium Succinate 125 MG/2 ML SDV IVPUSH ONE (10:26)
--- NOTE | 2018-04-29 10:34 | EDM.PDOC ---
ED HPI GENERAL MEDICAL PROBLEM - General Chief Complaint: Respiratory Problem Stated Complaint: SOB Time Seen by Provider: 04/29/18 10:07 Source of Information: Reports: Patient History Limitations: Reports: No Limitations - History of Present Illness INITIAL COMMENTS - FREE TEXT/NARRATIVE: The patient presents with shortness of breath and a cough. This has been going on for over a week. The patient has a history of COPD and CHF. She was admitted earlier in the month but has not felt well. She has no fever but she has chills. She has a productive cough. She has wheezing and shortness of breath. She has been taking her oral meds and treatments. She has no swelling or pain in her legs. She did follow up with her doctor and the testing was good there. She does have some pain to both sides of the ribs from coughing. 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) - Related Data Allergies Allergy/AdvReac Type Severity Reaction Status Date / Time insulin detemir Allergy Mild Itching Verified 04/29/18 10:12 [From Levemir] doxycycline Allergy Swelling Verified 04/29/18 10:12 Home Meds: Home Meds Allopurinol [Zyloprim] 300 mg PO DAILY 04/18/15 [History] Aspirin [Sacha Chewable Aspirin] 81 mg PO DAILY 04/18/15 [History] Lisinopril 10 mg PO DAILY 04/18/15 [History] Lovastatin 10 mg PO BEDTIME 04/18/15 [History] metFORMIN [Glucophage] 1,000 mg PO BIDMEALS 04/18/15 [History] Albuterol/Ipratropium [DuoNeb 3.0-0.5 MG/3 ML] 3 ml NEB Q6H PRN 06/28/17 [ History] Meloxicam [Mobic] 15 mg PO DAILY 06/28/17 [History] Albuterol/Ipratropium [DuoNeb 3.0-0.5 MG/3 ML] 3 ml INH QID 12/25/17 [History] Dextrose [Glucose] 4 gm PO ASDIRECTED PRN #15 tab.chew 12/31/17 [Rx] Insulin Degludec [Tresiba Flextouch U-200] 73 unit SQ DAILY 03/24/18 [History] Azithromycin [Zithromax] 250 mg PO DAILY #6 tab 04/29/18 [Rx] Ciprofloxacin [Ciprofloxacin 0.3% Ophth Soln] 1 ml OP Q4H #1 bottle 04/29/18 [Rx ] Furosemide [Lasix] 20 mg PO DAILY 04/29/18 [History] glipiZIDE [Glipizide ER] 10 mg PO BIDMEALS 04/29/18 [History] predniSONE [Prednisone] 40 mg PO DAILY #10 tablet 04/29/18 [Rx] traZODone HCl [Trazodone HCl] 50 - 100 mg PO BEDTIME 04/29/18 [History] Past Medical History HEENT History: Reports: Impaired Vision, Retinal Detachment 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: Musculoskeletal History: Reports: Back Pain, Chronic, Gout, Other (See Below) Other Musculoskeletal History: Right knee pain Neurological History: Reports: Migraines, Neuropathy, Diabetic Psychiatric History: Reports: Anxiety, Depression Endocrine/Metabolic History: Reports: Diabetes, Type II Hematologic History: Reports: None Immunologic History: Reports: None Oncologic (Cancer) History: Reports: None Dermatologic History: Reports: None - Infectious Disease History Infectious Disease History: Reports: Measles, Mumps - Past Surgical History HEENT Surgical History: Reports: Eye Surgery, Other (See Below) Other HEENT Surgeries/Procedures: retinal detachment surgery x2. Cardiovascular Surgical History: Reports: None Respiratory Surgical History: Reports: None GI Surgical History: Reports: Appendectomy, Cholecystectomy Female Surgical History: Reports: Hysterectomy, Lithotripsy/ESWL Endocrine Surgical History: Reports: None Neurological Surgical History: Reports: None Musculoskeletal Surgical History: Reports: Arthroscopic Knee Oncologic Surgical History: Reports: None Dermatological Surgical History: Reports: None Social & Family History - Family History Family Medical History: Noncontributory - Tobacco Use Smoking Status *Q: Former Smoker Used Tobacco, but Quit: Yes Month/Year Tobacco Last Used: 11/2017 Second Hand Smoke Exposure: Yes - Caffeine Use Caffeine Use: Reports: None Other Caffeine Use: diet pepsi - Recreational Drug Use Recreational Drug Use: No - Living Situation & Occupation Living situation: Reports: Single Occupation: Retired ED ROS GENERAL - Review of Systems Review Of Systems: See Below Constitutional: Reports: No Symptoms HEENT: Reports: No Symptoms Respiratory: Reports: Shortness of Breath, Wheezing, Cough Cardiovascular: Reports: Chest Pain Endocrine: Reports: No Symptoms GI/Abdominal: Reports: No Symptoms : Reports: No Symptoms Musculoskeletal: Reports: No Symptoms ED EXAM, GENERAL - Physical Exam Exam: See Below Exam Limited By: No Limitations General Appearance: Alert, No Apparent Distress Ears: Normal External Exam Nose: Normal Inspection Head: Atraumatic, Normocephalic Neck: Normal Inspection Respiratory/Chest: No Respiratory Distress, Wheezing (Moderate) Cardiovascular: Regular Rate, Rhythm, No Edema, No Murmur GI/Abdominal: Soft, Non-Tender, No Organomegaly, No Mass Extremities: Normal Inspection Course - Vital Signs Last Recorded V/S: Last Vital Signs Temp 98.7 F 04/29/18 10:07 Pulse 84 04/29/18 10:07 Resp 22 H 04/29/18 10:07 BP 131/77 04/29/18 10:07 Pulse Ox 91 L 04/29/18 12:01 - Orders/Labs/Meds Orders: Active Orders 24 hr Category Date Time Status Cardiac Monitoring [RC] . DIRECTED Care 04/29/18 10:24 Active Oxygen Therapy [RC] PRN Care 04/29/18 10:25 Active Peripheral IV Care [RC] . DIRECTED Care 04/29/18 10:25 Active RT Aerosol Therapy [RC] ASDIRECTED Care 04/29/18 10:26 Active RT Aerosol Therapy [RC] ASDIRECTED Care 04/29/18 11:45 Active Sodium Chloride 0.9% [Saline Flush] Med 04/29/18 10:24 Active 10 ml FLUSH ASDIRECTED PRN Peripheral IV Insertion Adult [OM.PC] Stat Oth 04/29/18 10:24 Ordered Medication Orders Sodium Chloride (Saline Flush) 10 ml FLUSH ASDIRECTED PRN PRN Reason: Keep Vein Open Last Admin: 04/29/18 10:40 Dose: 10 ml Labs: Laboratory Tests 04/29/18 04/29/18 Range/Units 10:40 10:40 WBC 7.01 (3.98-10.04) K/mm3 RBC 3.79 L (3.98-5.22) M/mm3 Hgb 10.5 L (11.2-15.7) gm/L Hct 34.0 L (34.1-44.9) % MCV 89.7 (79.4-94.8) fl MCH 27.7 (25.6-32.2) pg MCHC 30.9 L (32.2-35.5) g/dl RDW Std Deviation 49.4 H (36.4-46.3) fL Plt Count 184 (182-369) K/mm3 MPV 9.9 (9.4-12.3) fl Neut % (Auto) 66.1 (34.0-71.1) % Lymph % (Auto) 20.8 (19.3-51.7) % [place] % (Auto) 7.7 (4.7-12.5) % Eos % (Auto) 5.0 (0.7-5.8) Baso % (Auto) 0.1 (0.1-1.2) % Neut # (Auto) 4.63 (1.56-6.13) K/mm3 Lymph # (Auto) 1.46 (1.18-3.74) K/mm3 [place] # (Auto) 0.54 H (0.24-0.36) K/mm3 Eos # (Auto) 0.35 (0.04-0.36) K/mm3 Baso # (Auto) 0.01 (0.01-0.08) K/mm3 Sodium 142 (136-145) mEq/L Potassium 4.2 (3.5-5.1) mEq/L Chloride 106 (98-107) mEq/L Carbon Dioxide 26 (21-32) mEq/L Anion Gap 14.2 (5-15) BUN 24 H (7-18) mg/dL Creatinine 1.2 H (0.55-1.02) mg/dL Est Cr Clr Drug Dosing 38.75 mL/min Estimated GFR (MDRD) 45 (>60) mL/min BUN/Creatinine Ratio 20.0 H (14-18) Glucose 134 H (80-115) mg/dL Calcium 9.1 (8.5-10.1) mg/dL Total Bilirubin 0.2 (0.2-1.0) mg/dL AST 32 (15-37) U/L ALT 45 (14-59) U/L Alkaline Phosphatase 69 (46-116) U/L Total Protein 6.8 (6.4-8.2) g/dl Albumin 3.4 (3.4-5.0) g/dl Globulin 3.4 gm/dL Albumin/Globulin Ratio 1.0 (1-2) Meds: Medications Generic Name Dose Route Start Last Admin Trade Name Freq PRN Reason Stop Dose Admin Sodium Chloride 10 ml 04/29/18 10:24 04/29/18 10:40 Saline Flush FLUSH 10 ml ASDIRECTED PRN Administration Keep Vein Open Discontinued Medications Generic Name Dose Route Start Last Admin Trade Name Freq PRN Reason Stop Dose Admin Albuterol/Ipratropium 3 ml 04/29/18 10:26 04/29/18 11:16 Duoneb 3.0-0.5 Mg/3 Ml NEB 04/29/18 10:27 3 ml ONETIME ONE Administration Albuterol/Ipratropium 3 ml 04/29/18 11:45 04/29/18 12:01 Duoneb 3.0-0.5 Mg/3 Ml NEB 04/29/18 11:46 3 ml ONETIME ONE Administration Methylprednisolone Sodium Succinate 125 mg 04/29/18 10:26 04/29/18 10:46 Solu-Medrol IVPUSH 04/29/18 10:27 125 mg ONETIME ONE Administration - Re-Assessments/Exams Free Text/Narrative Re-Assessment/Exam: 04/29/18 10:35 I ordered an IV saline lock, solu-medrol 125mg IV, labs, CXR and a duoneb. 04/29/18 11:48 Her CXR looks good. There is no infiltrates. Her Hgb is a little low at 10.5. Her creatinine is elevated but improved from the other day at 1.2. Her glucose is elevated at 134. She is still wheezing so I ordered another breathing treatment with a duoneb. 04/29/18 12:19 The second treatment helped more. I will need to get her on steroids and a z- lanie. She had me look at her left eye. She says there is drainage and it feels like there is sand in it. There is some redness and drainage. It appears she has conjunctivitis. 04/29/18 12:23 Departure - Departure Time of Disposition: 12:20 Disposition: Home, Self-Care 01 Condition: Good Clinical Impression: Acute exacerbation of chronic obstructive pulmonary disease (COPD) Acute bronchitis Qualifiers: Bronchitis organism: unspecified organism Qualified Code(s): J20.9 - Acute bronchitis, unspecified Conjunctivitis Qualifiers: Conjunctivitis type: acute Acute conjunctivitis type: bacterial Laterality: left Qualified Code(s): H10.32 - Unspecified acute conjunctivitis, left eye - Discharge Information *PRESCRIPTION DRUG MONITORING PROGRAM REVIEWED*: No *COPY OF PRESCRIPTION DRUG MONITORING REPORT IN PATIENT RUCHI: No Prescriptions: Azithromycin [Zithromax] 250 mg PO DAILY #6 tab Ciprofloxacin [Ciprofloxacin 0.3% Ophth Soln] 1 ml OP Q4H #1 bottle predniSONE [Prednisone] 40 mg PO DAILY #10 tablet Referrals: Lisandra Mazariegos PA-C [Primary Care Provider] - 1 Week Forms: ED Department Discharge Additional Instructions: Take your medication as prescribed. Take the prednisone daily for 5 days. Use the cipro drops 1 drop every 4 hours while awake for a week. Take the zithromax daily for 5 days. Please return if you are worse. - My Orders Last 24 Hours: My Active Orders 04/29/18 10:24 Cardiac Monitoring [RC] . DIRECTED Sodium Chloride 0.9% [Saline Flush] 10 ml FLUSH ASDIRECTED PRN Peripheral IV Insertion Adult [OM.PC] Stat 04/29/18 10:25 Oxygen Therapy [RC] PRN Peripheral IV Care [RC] . DIRECTED 04/29/18 10:26 RT Aerosol Therapy [RC] ASDIRECTED 04/29/18 11:45 RT Aerosol Therapy [RC] ASDIRECTED - Assessment/Plan Last 24 Hours: My Active Orders 04/29/18 10:24 Cardiac Monitoring [RC] . DIRECTED Sodium Chloride 0.9% [Saline Flush] 10 ml FLUSH ASDIRECTED PRN Peripheral IV Insertion Adult [OM.PC] Stat 04/29/18 10:25 Oxygen Therapy [RC] PRN Peripheral IV Care [RC] . DIRECTED 04/29/18 10:26 RT Aerosol Therapy [RC] ASDIRECTED 04/29/18 11:45 RT Aerosol Therapy [RC] ASDIRECTED
--- NOTE | 2018-04-29 11:50 | CR ---
Chest: Portable view of the chest was obtained. Comparison: Prior chest x-ray of 03/25/18. Heart size and mediastinum are within normal limits for portable technique. Lungs are clear without acute parenchymal change. Bony structures are grossly intact. Impression: 1. Nothing acute is seen on portable chest x-ray. Diagnostic code #1
[2018-04-29] MEDS ORDERED: Albuterol 0.083% 2.5 MG/3 ML Neb Soln NEB ONE (12:47)
[2018-04-29] MEDS ORDERED: Azithromycin 500 MG in Sodium Chloride 0.9% 250 ML IV ONE (14:24)
[2018-04-29] MEDS ORDERED: Magnesium Hydroxide 400 MG/5 ML Susp 30 ML Cup PO PRN (18:14)
[2018-04-29] MEDS ORDERED: Albuterol 0.083% 2.5 MG/3 ML Neb Soln NEB PRN (18:14)
[2018-04-29] MEDS ORDERED: Bisacodyl 5 MG Tab PO PRN (18:14)
[2018-04-29] MEDS ORDERED: Acetaminophen/HYDROcodone 325-5 MG Tab PO PRN (18:14)
[2018-04-29] MEDS ORDERED: Docusate Sodium 100 MG Cap PO PRN (18:14)
[2018-04-29] MEDS ORDERED: Polyethylene Glycol 3350 Powder 17 GM Packet PO PRN (18:14)
[2018-04-29] MEDS ORDERED: Acetaminophen 325 MG Tab PO PRN (18:14)
[2018-04-29] MEDS ORDERED: Morphine 2 MG/ML Syringe IVPUSH PRN (18:14)
[2018-04-29] MEDS ORDERED: Promethazine 6.25 MG in Sodium Chloride 0.9% 50 ML IV PRN (18:19)
[2018-04-29] MEDS ORDERED: Promethazine 25 MG Tab PO PRN (18:19)
[2018-04-29] MEDS ORDERED: 50% Dextrose in Water 50 ML Syringe IVPUSH PRN (18:29)
[2018-04-29] MEDS: Acetaminophen 325 MG Tab PO PRN (18:31)
--- NOTE | 2018-04-29 18:38 | PCM.HP ---
H&P History of Present Illness - General Date of Service: 04/29/18 Admit Problem/Dx: Admission Diagnosis/Problem Admission Diagnosis/Problem Bronchitis Source of Information: Patient History Limitations: Reports: No Limitations - History of Present Illness Initial Comments - Free Text/Narative: HPI: This is a 68 yo female well known to this service, her last visit was 03/24/18 with similar symptoms, with past medical hx/o HTN, HLD, R eye blindness, Asthma , COPD, Renal calculus, Gout, Back Pain, Migraines, Neuropathy, DM2, Depression , Anxiety, h/o cholecystectomy, h/o hysterectomy who comes in for COPD exacerbation/possible bronchitis. Pt c/o Chills, SOB, dyspnea, productive cough. She denies Fever, N/V/D, decreased appetite, constipation, abdominal pain , other GI/ symptoms. Her initial workup in the ED shows a CBC remarkable for RBC 3.79, Hgb 10.5, Hct 34, MCHC 30.9, RDQ 49.4. Her chemistry is remarkable for BUN 24, Cr 1.2, GFR 45 , Glu 134. CXR shows nothing acute. She is subsequently admitted to the medical floor on telemetry. She is a Full Code. Her PCP is Lisandra Mazariegos PA-C. - Related Data Allergies/Adverse Reactions: Allergies Allergy/AdvReac Type Severity Reaction Status Date / Time insulin detemir Allergy Mild Itching Verified 04/29/18 15:25 [From Levemir] doxycycline Allergy Swelling Verified 04/29/18 15:25 Home Medications: Home Meds Allopurinol [Zyloprim] 300 mg PO DAILY 04/18/15 [History] Aspirin [Sacha Chewable Aspirin] 81 mg PO DAILY 04/18/15 [History] Lisinopril 10 mg PO DAILY 04/18/15 [History] Lovastatin 10 mg PO BEDTIME 04/18/15 [History] metFORMIN [Glucophage] 1,000 mg PO BIDMEALS 04/18/15 [History] Albuterol/Ipratropium [DuoNeb 3.0-0.5 MG/3 ML] 3 ml NEB Q6H PRN 06/28/17 [ History] Meloxicam [Mobic] 15 mg PO DAILY 06/28/17 [History] Albuterol/Ipratropium [DuoNeb 3.0-0.5 MG/3 ML] 3 ml INH QID 12/25/17 [History] Dextrose [Glucose] 4 gm PO ASDIRECTED PRN #15 tab.chew 12/31/17 [Rx] Insulin Degludec [Tresiba Flextouch U-200] 73 unit SQ DAILY 03/24/18 [History] Furosemide [Lasix] 20 mg PO DAILY 04/29/18 [History] Sertraline [Zoloft] 1 tab PO DAILY 04/29/18 [History] glipiZIDE [Glipizide ER] 10 mg PO BIDMEALS 04/29/18 [History] traZODone HCl [Trazodone HCl] 50 - 100 mg PO BEDTIME 04/29/18 [History] Past Medical History HEENT History: Reports: Impaired Vision, Retinal Detachment 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: Musculoskeletal History: Reports: Back Pain, Chronic, Gout, Other (See Below) Other Musculoskeletal History: Right knee pain Neurological History: Reports: Migraines, Neuropathy, Diabetic Psychiatric History: Reports: Anxiety, Depression Endocrine/Metabolic History: Reports: Diabetes, Type II Hematologic History: Reports: None Immunologic History: Reports: None Oncologic (Cancer) History: Reports: None Dermatologic History: Reports: None - Infectious Disease History Infectious Disease History: Reports: Chicken Pox, Measles, Mumps - Past Surgical History HEENT Surgical History: Reports: Eye Surgery, Other (See Below) Other HEENT Surgeries/Procedures: retinal detachment surgery x2. Cardiovascular Surgical History: Reports: None Respiratory Surgical History: Reports: None GI Surgical History: Reports: Appendectomy, Cholecystectomy Female Surgical History: Reports: Hysterectomy, Lithotripsy/ESWL Endocrine Surgical History: Reports: None Neurological Surgical History: Reports: None Musculoskeletal Surgical History: Reports: Other (See Below) Other Musculoskeletal Surgeries/Procedures:: knee sx bilaterally Oncologic Surgical History: Reports: None Dermatological Surgical History: Reports: None Social & Family History - Family History Family Medical History: Noncontributory - Tobacco Use Smoking Status *Q: Former Smoker Used Tobacco, but Quit: Yes Month/Year Tobacco Last Used: november 2017 Second Hand Smoke Exposure: Yes - Caffeine Use Caffeine Use: Reports: Soda Other Caffeine Use: diet pepsi - Recreational Drug Use Recreational Drug Use: No - Living Situation & Occupation Living situation: Reports: Single Occupation: Retired H&P Review of Systems - Review of Systems: Review Of Systems: See Below General: Reports: Chills. Denies: Fever, Decreased Appetite HEENT: Reports: No Symptoms Pulmonary: Reports: Shortness of Breath, Wheezing, Cough, Sputum. Denies: Pleuritic Chest Pain Cardiovascular: Reports: Dyspnea on Exertion, Blood Pressure Problem. Denies: Chest Pain, Orthopnea Gastrointestinal: Reports: No Symptoms. Denies: Abdominal Pain, Diarrhea, Nausea, Vomiting Genitourinary: Reports: No Symptoms Musculoskeletal: Reports: No Symptoms Skin: Reports: No Symptoms Psychiatric: Reports: No Symptoms. Denies: Confusion Neurological: Reports: Difficulty Walking (d/t SOB). Denies: Confusion, Dizziness, Numbness, Tingling, Weakness Hematologic/Lymphatic: Reports: No Symptoms Immunologic: Reports: No Symptoms Exam - Exam Exam: See Below - Vital Signs Vital Signs: Last Vital Signs Temp 97.7 F 04/29/18 14:50 Pulse 85 04/29/18 14:50 Resp 20 04/29/18 14:50 BP 117/76 04/29/18 14:50 Pulse Ox 96 04/29/18 14:50 Weight: 253 lb 3.2 oz - Exam Quality Assessment: Supplemental Oxygen (2L NC), DVT Prophylaxis General: Alert, Oriented, Cooperative, Moderate Distress HEENT: Conjunctiva Clear, EACs Clear, EOMI, Hearing Intact, Mucosa Moist & [place] , Nares Patent, Normal Nasal Septum, Posterior Pharynx Clear, PERRLA Neck: Supple, Trachea Midline, 2 Lungs: Crackles, Wheezing. No: Normal Respiratory Effort (tachypnea) Cardiovascular: Regular Rate, Regular Rhythm GI/Abdominal Exam: Normal Bowel Sounds, Soft, Non-Tender, No Organomegaly, No Distention, No Abnormal Bruit, No Mass, Pelvis Stable (Female) Exam: Deferred Rectal (Female) Exam: Deferred Back Exam: Normal Inspection Extremities: Normal Inspection, Normal Range of Motion, Non-Tender, No Pedal Edema, Normal Capillary Refill Peripheral Pulses: 2+: Posterior Tibial (L), Posterior Tibial (R), Dorsalis Pedis (L), Dorsalis Pedis (R) Skin: Warm, Dry, Intact Neurological: Cranial Nerves Intact (grossly) Neuro Extensive - Mental Status: Alert, Oriented x3, Normal Mood/Affect, Normal Cognition, Memory Intact Psychiatric: Alert, Normal Affect, Normal Mood - Patient Data Lab Results Last 24 hrs: Laboratory Results - last 24 hr 04/29/18 04/29/18 Range/Units 10:40 10:40 WBC 7.01 (3.98-10.04) K/mm3 RBC 3.79 L (3.98-5.22) M/mm3 Hgb 10.5 L (11.2-15.7) gm/L Hct 34.0 L (34.1-44.9) % MCV 89.7 (79.4-94.8) fl MCH 27.7 (25.6-32.2) pg MCHC 30.9 L (32.2-35.5) g/dl RDW Std Deviation 49.4 H (36.4-46.3) fL Plt Count 184 (182-369) K/mm3 MPV 9.9 (9.4-12.3) fl Neut % (Auto) 66.1 (34.0-71.1) % Lymph % (Auto) 20.8 (19.3-51.7) % [place] % (Auto) 7.7 (4.7-12.5) % Eos % (Auto) 5.0 (0.7-5.8) Baso % (Auto) 0.1 (0.1-1.2) % Neut # (Auto) 4.63 (1.56-6.13) K/mm3 Lymph # (Auto) 1.46 (1.18-3.74) K/mm3 [place] # (Auto) 0.54 H (0.24-0.36) K/mm3 Eos # (Auto) 0.35 (0.04-0.36) K/mm3 Baso # (Auto) 0.01 (0.01-0.08) K/mm3 Sodium 142 (136-145) mEq/L Potassium 4.2 (3.5-5.1) mEq/L Chloride 106 (98-107) mEq/L Carbon Dioxide 26 (21-32) mEq/L Anion Gap 14.2 (5-15) BUN 24 H (7-18) mg/dL Creatinine 1.2 H (0.55-1.02) mg/dL Est Cr Clr Drug Dosing 38.75 mL/min Estimated GFR (MDRD) 45 (>60) mL/min BUN/Creatinine Ratio 20.0 H (14-18) Glucose 134 H (80-115) mg/dL Calcium 9.1 (8.5-10.1) mg/dL Total Bilirubin 0.2 (0.2-1.0) mg/dL AST 32 (15-37) U/L ALT 45 (14-59) U/L Alkaline Phosphatase 69 (46-116) U/L Total Protein 6.8 (6.4-8.2) g/dl Albumin 3.4 (3.4-5.0) g/dl Globulin 3.4 gm/dL Albumin/Globulin Ratio 1.0 (1-2) Result Diagrams: 04/29/18 10:40 04/29/18 10:40 - Problem List (1) Acute bronchitis SNOMED Code(s): 25588210 ICD Code: J20.9 - ACUTE BRONCHITIS, UNSPECIFIED Status: Acute Priority: High Current Visit: Yes Qualifiers: Bronchitis organism: unspecified organism Qualified Code(s): J20.9 - Acute bronchitis, unspecified (2) Acute exacerbation of chronic obstructive pulmonary disease (COPD) SNOMED Code(s): 505745523 ICD Code: J44.1 - CHRONIC OBSTRUCTIVE PULMONARY DISEASE W (ACUTE) EXACERBATION Status: Acute Priority: High Current Visit: Yes Problem List Initiated/Reviewed/Updated: Yes Orders Last 24hrs: Active Orders 24 hr Category Date Time Status Patient Status [ADT] Stat ADT 04/29/18 15:33 Active Blood Glucose Check, Bedside [RC] QIDACANDBED Care 04/29/18 18:29 Active Cardiac Monitoring [RC] . DIRECTED Care 04/29/18 10:24 Active Height and Weight [RC] DAILY Care 04/29/18 18:14 Active Intake and Output [RC] QSHIFT Care 04/29/18 18:15 Active May Shower [RC] ASDIRECTED Care 04/29/18 18:14 Active Oxygen Therapy Adult [Oxygen Therapy, ED] [RC] Care 04/29/18 12:47 Active ASDIRECTED Oxygen Therapy [RC] PRN Care 04/29/18 10:25 Active Oxygen Therapy [RC] PRN Care 04/29/18 18:14 Active Pulse Oximetry [RC] PRN Care 04/29/18 18:15 Active RT Aerosol Therapy [RC] ASDIRECTED Care 04/29/18 18:17 Active RT Chest Physiotherapy [RC] ASDIRECTED Care 04/29/18 18:13 Active RT Incentive Spirometry [RC] ASDIRECTED Care 04/29/18 18:13 Active Up With Assistance [RC] ASDIRECTED Care 04/29/18 18:14 Active VTE/DVT Education [RC] PER UNIT ROUTINE Care 04/29/18 18:14 Active Vital Signs [RC] Q4H Care 04/29/18 18:14 Active Consult to Case Management/Senior Statistical Programmer [CONS] Cons 04/29/18 18:19 Active Routine OT Evaluation and Treatment [CONS] Routine Cons 04/29/18 18:19 Active PT Evaluation and Treatment [CONS] Routine Cons 04/29/18 18:19 Active Respiratory Care Assess and Treatment [CONS] Routine Cons 04/29/18 18:19 Active ADA Diabetic [[employer] Diet] [DIET Diet 04/29/18 Dinner Active ] Chest 2V [CR] AM Exams 05/01/18 05:11 Ordered Echo Comp wo Cont [US] Routine Exams 04/30/18 08:00 Ordered A1C [GLYCOSYLATED HEMOGLOBIN,HGBA1C] [CHEM] AM Lab 04/30/18 05:11 Ordered BASIC METABOLIC PANEL,BMP [CHEM] AM Lab 04/30/18 05:11 Ordered BASIC METABOLIC PANEL,BMP [CHEM] AM Lab 05/01/18 05:11 Ordered BASIC METABOLIC PANEL,BMP [CHEM] AM Lab 05/02/18 05:11 Ordered BASIC METABOLIC PANEL,BMP [CHEM] AM Lab 05/03/18 05:11 Ordered BASIC METABOLIC PANEL,BMP [CHEM] AM Lab 05/04/18 05:11 Ordered C-REACTIVE PROTEIN [CHEM] AM Lab 04/30/18 05:11 Ordered C-REACTIVE PROTEIN [CHEM] AM Lab 05/01/18 05:11 Ordered C-REACTIVE PROTEIN [CHEM] AM Lab 05/02/18 05:11 Ordered C-REACTIVE PROTEIN [CHEM] AM Lab 05/03/18 05:11 Ordered C-REACTIVE PROTEIN [CHEM] AM Lab 05/04/18 05:11 Ordered CBC WITH AUTO DIFF [HEME] AM Lab 04/30/18 05:11 Ordered CBC WITH AUTO DIFF [HEME] AM Lab 05/01/18 05:11 Ordered CBC WITH AUTO DIFF [HEME] AM Lab 05/02/18 05:11 Ordered CBC WITH AUTO DIFF [HEME] AM Lab 05/03/18 05:11 Ordered CBC WITH AUTO DIFF [HEME] AM Lab 05/04/18 05:11 Ordered CULTURE SPUTUM + SMEAR [RM] Routine Lab 04/29/18 18:13 Ordered LIPID PANEL [CHEM] AM Lab 04/30/18 05:11 Ordered MAGNESIUM [CHEM] AM Lab 04/30/18 05:11 Ordered MAGNESIUM [CHEM] AM Lab 05/01/18 05:11 Ordered MAGNESIUM [CHEM] AM Lab 05/02/18 05:11 Ordered MAGNESIUM [CHEM] AM Lab 05/03/18 05:11 Ordered MAGNESIUM [CHEM] AM Lab 05/04/18 05:11 Ordered MYCOPLASMA PNEUMONIAE IGM AB [CHEM] Routine Lab 04/29/18 18:13 Ordered PRO B-TYPE NATRIUR PEPT,BNPPRO [CHEM] AM Lab 04/30/18 05:11 Ordered RESPIRATORY PANEL Routine Lab 04/29/18 18:13 Ordered STREP PNEUMONIAE ANTIGEN [MREF] Routine Lab 04/29/18 18:13 Ordered Acetaminophen [Tylenol] Med 04/29/18 18:14 Ordered 650 mg PO Q4H PRN Acetaminophen [Tylenol] Med 04/29/18 18:14 Ordered 650 mg PO Q4H PRN Acetaminophen/HYDROcodone [[place] 325-5 MG] Med 04/29/18 18:14 Ordered 1 tab PO Q4H PRN Albuterol [Proventil Neb Soln] Med 04/29/18 18:14 Ordered 2.5 mg NEB Q2H PRN Albuterol/Ipratropium [DuoNeb 3.0-0.5 MG/3 ML] Med 04/29/18 18:14 Active 3 ml NEB Q4H PRN Allopurinol [Zyloprim] Med 04/30/18 09:00 Ordered 300 mg PO DAILY Aspirin Med 04/30/18 09:00 Ordered 81 mg PO DAILY Azithromycin [Zithromax] 500 mg Med 04/29/18 18:15 Ordered Sodium Chloride 0.9% [Normal Saline] 250 ml IV Q24H Bisacodyl [Dulcolax] Med 04/29/18 18:14 Active 5 mg PO DAILY PRN Dextrose 50% in Water Med 04/29/18 18:29 Ordered 50 ml IVPUSH ASDIRECTED PRN Docusate Sodium [Colace] Med 04/29/18 18:14 Active 100 mg PO BID PRN Docusate Sodium/Sennosides [Senna Plus] Med 04/29/18 18:14 Active 1 tab PO BID PRN Enoxaparin [Lovenox] Med 04/30/18 09:00 Ordered 30 mg SUBCUT DAILY Famotidine [Pepcid] Med 04/29/18 21:00 Ordered 20 mg PO BID Furosemide [Lasix] Med 04/30/18 09:00 Ordered 20 mg PO DAILY Insulin Lispro [HumaLOG] Med 04/29/18 22:00 Ordered See Protocol SUBCUT QIDACANDBED Lisinopril [Prinivil] Med 04/30/18 09:00 Ordered 10 mg PO DAILY Lovastatin [Lovastatin] Med 04/29/18 21:00 Ordered 10 mg PO BEDTIME Magnesium Hydroxide [Milk of Magnesia] Med 04/29/18 18:14 Ordered 30 ml PO Q12H PRN Meloxicam Med 04/30/18 09:00 Ordered 15 mg PO DAILY Morphine Med 04/29/18 18:14 Ordered 2 mg IVPUSH Q2H PRN Polyethylene Glycol 3350 [MiraLAX] Med 04/29/18 18:14 Ordered 17 gm PO DAILY PRN Promethazine [Phenergan] Med 04/29/18 18:19 Ordered 25 mg PO Q6H PRN Promethazine [Phenergan] 6.25 mg Med 04/29/18 18:19 Ordered Sodium Chloride 0.9% [Normal Saline] 50 ml IV Q6H Saccharomyces Boulardii [Florastor] Med 04/29/18 21:00 Ordered 250 mg PO BID Sertraline Med 04/30/18 09:00 Ordered 1 tab PO DAILY Sodium Chloride 0.9% [Saline Flush] Med 04/29/18 10:24 Active 10 ml FLUSH ASDIRECTED PRN Temazepam [Restoril] Med 04/29/18 18:14 Ordered 7.5 mg PO BEDTIME PRN glipiZIDE Med 04/30/18 07:00 Ordered 10 mg PO BIDMEALS metFORMIN [Glucophage] Med 04/30/18 07:00 Ordered 1,000 mg PO BIDMEALS methylPREDNISolone Sod Succ [Solu-MEDROL] Med 04/29/18 18:30 Active 125 mg IVPUSH Q8H Peripheral IV Insertion Adult [OM.PC] Stat Oth 04/29/18 10:24 Ordered Resuscitation Status Routine Resus Stat 04/29/18 15:19 Ordered Medication Orders Acetaminophen (Tylenol) 650 mg PO Q4H PRN PRN Reason: Pain Last Admin: 04/29/18 18:31 Dose: 650 mg Acetaminophen (Tylenol) 650 mg PO Q4H PRN PRN Reason: Pain (Mild 1-3)/fever Hydrocodone Bitart/Acetaminophen ([place] 325-5 Mg) 1 tab PO Q4H PRN PRN Reason: Pain (moderate 4-6) Albuterol (Proventil Neb Soln) 2.5 mg NEB Q2H PRN PRN Reason: Shortness Of Breath/wheezing Albuterol/Ipratropium (Duoneb 3.0-0.5 Mg/3 Ml) 3 ml NEB Q4H PRN PRN Reason: Shortness Of Breath/wheezing Bisacodyl (Dulcolax) 5 mg PO DAILY PRN PRN Reason: Constipation Dextrose/Water (Dextrose 50% In Water) 50 ml IVPUSH ASDIRECTED PRN PRN Reason: Hypoglycemia Docusate Sodium (Colace) 100 mg PO BID PRN PRN Reason: Constipation Enoxaparin Sodium (Lovenox) 40 mg SUBCUT DAILY [facility] Famotidine (Pepcid) 20 mg PO BID [facility] Azithromycin 500 mg/ Sodium (Chloride) 250 mls @ 250 mls/hr IV Q24H [place] Promethazine HCl 6.25 mg/ (Sodium Chloride) 50.25 mls @ 100 mls/hr IV Q6H PRN PRN Reason: Nausea/Vomiting Insulin Human Lispro (Humalog) 0 unit SUBCUT QIDACANDBED [place]; Protocol Magnesium Hydroxide (Milk Of Magnesia) 30 ml PO Q12H PRN PRN Reason: Constipation Methylprednisolone Sodium Succinate (Solu-Medrol) 125 mg IVPUSH Q8H [facility] Morphine Sulfate (Morphine) 2 mg IVPUSH Q2H PRN PRN Reason: Pain (severe 7-10) Stop: 04/30/18 18:16 Polyethylene Glycol (Miralax) 17 gm PO DAILY PRN PRN Reason: Constipation Promethazine HCl (Phenergan) 25 mg PO Q6H PRN PRN Reason: Nausea/Vomiting Saccharomyces Boulardii (Florastor) 250 mg PO BID [place] Senna/Docusate Sodium (Senna Plus) 1 tab PO BID PRN PRN Reason: Constipation Sodium Chloride (Saline Flush) 10 ml FLUSH ASDIRECTED PRN PRN Reason: Keep Vein Open Last Admin: 04/29/18 10:40 Dose: 10 ml Temazepam (Restoril) 7.5 mg PO BEDTIME PRN PRN Reason: Sleep Assessment/Plan Comment:: I/P: Acute: Productive cough w/ Hypoxia * Dyspnea, SOB x 1 week * Differential: Bronchitis vs PNA vs COPD exacerbation * Risk Factors: COPD on O2 at home, h/o asthma, former smoker (quit 4 mo ago), exposure to smoke and sick children at home, 4 dogs and 2 cats at home * CXR in ED--> nothing acute seen * Influenza, RVP, Mycoplasma, Strep pneumo, Sputum culture pending * RT/Duonebs/IS/Acapella * Repeat CXR in 48H * ECHO pending * Azithromycin started in ED--> Continue * After D/C recommendations: * Unsure if she has allergies--> recommend allergy testing * GERARDO testing Chronic: HTN HLD R eye blindness Asthma COPD Renal calculus Gout Back Pain Migraines Neuropathy DM2 Depression Anxiety h/o cholecystectomy h/o hysterectomy Plan: Transferred to Medical Floor on telemetry Droplet precautions Other orders as indicated above Routine AM labs ADA diet PT/OT CM/SW DVT Prophylaxis/GI Prophylaxis Code Status: Full Code; PCP: Lisandra Mazariegos PA-C
[2018-04-29] MEDS: methylPREDNISolone Sodium Succinate 125 MG/2 ML SDV IVPUSH SCH (18:42)
[2018-04-29] MEDS: Albuterol/Ipratropium 3.0-0.5 MG/3 ML Neb Soln NEB PRN (20:28)
[2018-04-29] MEDS ORDERED: Famotidine 20 MG Tab PO SCH (21:00)
[2018-04-29] MEDS ORDERED: Insulin Lispro 100 Unit/ML 3 ML KwikPen SUBCUT SCH (22:00)
[2018-04-29] MEDS: Simvastatin 10 MG Tab PO SCH (22:16)
[2018-04-29] MEDS: Saccharomyces Boulardii (Probiotic) 250 MG Cap PO SCH (22:16)
[2018-04-29] MEDS: Temazepam 7.5 MG Cap PO PRN (22:17)
[2018-04-30] MEDS: methylPREDNISolone Sodium Succinate 125 MG/2 ML SDV IVPUSH SCH ×3 (03:28→17:34)
[2018-04-30] MEDS: Acetaminophen 325 MG Tab PO PRN (03:48)
[2018-04-30] MEDS: Insulin Lispro 100 Unit/ML 3 ML KwikPen SUBCUT SCH ×4 (06:33→22:11)
[2018-04-30] MEDS: glipiZIDE 5 MG Tab.ER PO SCH ×2 (06:35→16:01)
[2018-04-30] MEDS: metFORMIN 500 MG Tab PO SCH ×2 (06:35→16:01)
[2018-04-30] MEDS: Albuterol/Ipratropium 3.0-0.5 MG/3 ML Neb Soln NEB PRN ×4 (06:37→21:04)
[2018-04-30] MEDS: Saccharomyces Boulardii (Probiotic) 250 MG Cap PO SCH ×2 (08:00→22:10)
[2018-04-30] MEDS: Aspirin 81 MG Tab.EC PO SCH (08:00)
[2018-04-30] MEDS: Famotidine 20 MG Tab PO SCH (08:00)
[2018-04-30] MEDS: Allopurinol 300 MG Tab PO SCH (08:00)
[2018-04-30] MEDS: Sertraline 50 MG Tab PO SCH (08:00)
[2018-04-30] MEDS: Enoxaparin 40 MG/0.4 ML Syringe SUBCUT SCH (08:00)
[2018-04-30] MEDS: Furosemide 20 MG Tab PO SCH (08:01)
[2018-04-30] MEDS: Lisinopril 10 MG Tab PO SCH (08:01)
[2018-04-30] MEDS ORDERED: Non-Formulary Medication 1 Each (Meloxicam 15 MG) PO SCH (09:00)
[2018-04-30 09:50] LABS: HEMOGLOBIN A1C 8.3 % (4.50-6.20)
--- NOTE | 2018-04-30 13:14 | PCM.PN ---
- General Info Date of Service: 04/30/18 Functional Status: Reports: Pain Controlled, Tolerating Diet, Ambulating, Urinating - Review of Systems General: Reports: No Symptoms, Weakness, Fatigue, Malaise HEENT: Reports: No Symptoms Pulmonary: Reports: Shortness of Breath, Pleuritic Chest Pain Cardiovascular: Reports: Dyspnea on Exertion Gastrointestinal: Reports: No Symptoms Genitourinary: Reports: No Symptoms Musculoskeletal: Reports: No Symptoms Skin: Reports: No Symptoms Neurological: Reports: No Symptoms Psychiatric: Reports: No Symptoms - Patient Data Vitals - Most Recent: Last Vital Signs Temp 37.1 C 04/30/18 11:39 Pulse 100 04/30/18 11:39 Resp 18 04/30/18 11:39 BP 133/52 L 04/30/18 11:39 Pulse Ox 93 L 04/30/18 11:39 Weight - Most Recent: 115.439 kg I&O - Last 24 Hours: Intake & Output 04/29/18 04/30/18 04/30/18 22:59 06:59 14:59 Intake Total 780 1600 360 Output Total 550 900 Balance 230 700 360 Lab Results Last 24 Hours: Laboratory Results - last 24 hr 04/29/18 04/29/18 04/30/18 Range/Units 10:40 21:30 00:03 WBC (3.98-10.04) K/mm3 RBC (3.98-5.22) M/mm3 Hgb (11.2-15.7) gm/L Hct (34.1-44.9) % MCV (79.4-94.8) fl MCH (25.6-32.2) pg MCHC (32.2-35.5) g/dl RDW Std Deviation (36.4-46.3) fL Plt Count (182-369) K/mm3 MPV (9.4-12.3) fl Neut % (Auto) (34.0-71.1) % Lymph % (Auto) (19.3-51.7) % [place] % (Auto) (4.7-12.5) % Eos % (Auto) (0.7-5.8) Baso % (Auto) (0.1-1.2) % Neut # (Auto) (1.56-6.13) K/mm3 Lymph # (Auto) (1.18-3.74) K/mm3 [place] # (Auto) (0.24-0.36) K/mm3 Eos # (Auto) (0.04-0.36) K/mm3 Baso # (Auto) (0.01-0.08) K/mm3 Manual Slide Review Sodium (136-145) mEq/L Potassium (3.5-5.1) mEq/L Chloride (98-107) mEq/L Carbon Dioxide (21-32) mEq/L Anion Gap (5-15) BUN (7-18) mg/dL Creatinine (0.55-1.02) mg/dL Est Cr Clr Drug Dosing mL/min Estimated GFR (MDRD) (>60) mL/min BUN/Creatinine Ratio (14-18) Glucose 421 H (80-115) mg/dL POC Glucose 392 H (80-115) mg/dL Hemoglobin A1c (4.50-6.20) % Calcium (8.5-10.1) mg/dL Magnesium (1.8-2.4) mg/dl C-Reactive Protein (<1.0) mg/dL NT-Pro-B Natriuret Pep (0-125) pg/mL Triglycerides (<150) mg/dL Cholesterol (<200) mg/dL LDL Cholesterol Direct (<100) mg/dL HDL Cholesterol (40-59) mg/dL Mycoplasma pneumon IgM Negative (NEGATIVE) 04/30/18 04/30/18 04/30/18 Range/Units 05:42 05:42 05:42 WBC 8.86 (3.98-10.04) K/mm3 RBC 3.81 L (3.98-5.22) M/mm3 Hgb 10.4 L (11.2-15.7) gm/L Hct 33.7 L (34.1-44.9) % MCV 88.5 (79.4-94.8) fl MCH 27.3 (25.6-32.2) pg MCHC 30.9 L (32.2-35.5) g/dl RDW Std Deviation 48.4 H (36.4-46.3) fL Plt Count 171 L (182-369) K/mm3 MPV 10.6 (9.4-12.3) fl Neut % (Auto) 89.0 H (34.0-71.1) % Lymph % (Auto) 9.4 L (19.3-51.7) % [place] % (Auto) 1.5 L (4.7-12.5) % Eos % (Auto) 0 L (0.7-5.8) Baso % (Auto) 0.0 L (0.1-1.2) % Neut # (Auto) 7.89 H (1.56-6.13) K/mm3 Lymph # (Auto) 0.83 L (1.18-3.74) K/mm3 [place] # (Auto) 0.13 L (0.24-0.36) K/mm3 Eos # (Auto) 0.00 L (0.04-0.36) K/mm3 Baso # (Auto) 0.00 L (0.01-0.08) K/mm3 Manual Slide Review Abnormal smear Sodium 135 L (136-145) mEq/L Potassium 4.5 (3.5-5.1) mEq/L Chloride 100 (98-107) mEq/L Carbon Dioxide 24 (21-32) mEq/L Anion Gap 15.5 H (5-15) BUN 29 H (7-18) mg/dL Creatinine 1.1 H (0.55-1.02) mg/dL Est Cr Clr Drug Dosing 42.27 mL/min Estimated GFR (MDRD) 49 (>60) mL/min BUN/Creatinine Ratio 26.4 H (14-18) Glucose 346 H (80-115) mg/dL POC Glucose (80-115) mg/dL Hemoglobin A1c 8.30 H (4.50-6.20) % Calcium 8.9 (8.5-10.1) mg/dL Magnesium 1.8 (1.8-2.4) mg/dl C-Reactive Protein 1.2 H* (<1.0) mg/dL NT-Pro-B Natriuret Pep (0-125) pg/mL Triglycerides 114 (<150) mg/dL Cholesterol 151 (<200) mg/dL LDL Cholesterol Direct 83 (<100) mg/dL HDL Cholesterol 55.0 (40-59) mg/dL Mycoplasma pneumon IgM (NEGATIVE) 04/30/18 04/30/18 04/30/18 Range/Units 05:42 06:16 10:35 WBC (3.98-10.04) K/mm3 RBC (3.98-5.22) M/mm3 Hgb (11.2-15.7) gm/L Hct (34.1-44.9) % MCV (79.4-94.8) fl MCH (25.6-32.2) pg MCHC (32.2-35.5) g/dl RDW Std Deviation (36.4-46.3) fL Plt Count (182-369) K/mm3 MPV (9.4-12.3) fl Neut % (Auto) (34.0-71.1) % Lymph % (Auto) (19.3-51.7) % [place] % (Auto) (4.7-12.5) % Eos % (Auto) (0.7-5.8) Baso % (Auto) (0.1-1.2) % Neut # (Auto) (1.56-6.13) K/mm3 Lymph # (Auto) (1.18-3.74) K/mm3 [place] # (Auto) (0.24-0.36) K/mm3 Eos # (Auto) (0.04-0.36) K/mm3 Baso # (Auto) (0.01-0.08) K/mm3 Manual Slide Review Sodium (136-145) mEq/L Potassium (3.5-5.1) mEq/L Chloride (98-107) mEq/L Carbon Dioxide (21-32) mEq/L Anion Gap (5-15) BUN (7-18) mg/dL Creatinine (0.55-1.02) mg/dL Est Cr Clr Drug Dosing mL/min Estimated GFR (MDRD) (>60) mL/min BUN/Creatinine Ratio (14-18) Glucose 382 H (80-115) mg/dL POC Glucose 332 H (80-115) mg/dL Hemoglobin A1c (4.50-6.20) % Calcium (8.5-10.1) mg/dL Magnesium (1.8-2.4) mg/dl C-Reactive Protein (<1.0) mg/dL NT-Pro-B Natriuret Pep 531 H (0-125) pg/mL Triglycerides (<150) mg/dL Cholesterol (<200) mg/dL LDL Cholesterol Direct (<100) mg/dL HDL Cholesterol (40-59) mg/dL Mycoplasma pneumon IgM (NEGATIVE) Antoni Results Last 24 Hours: Microbiology 04/29/18 19:55 Gram Stain - Preliminary Sputum - Expectorated 04/29/18 19:05 Influenza Type A Antigen Screen - Final Nasopharyngeal Swab NEGATIVE INFLUENZA A VIRUS AG Influenza Type B Antigen Screen - Final NEGATIVE INFLUENZA B VIRUS AG Med Orders - Current: Current Medications Acetaminophen (Tylenol) 650 mg PO Q4H PRN PRN Reason: Pain Last Admin: 04/30/18 03:48 Dose: 650 mg Acetaminophen (Tylenol) 650 mg PO Q4H PRN PRN Reason: Pain (Mild 1-3)/fever Hydrocodone Bitart/Acetaminophen (Closter 325-5 Mg) 1 tab PO Q4H PRN PRN Reason: Pain (moderate 4-6) Albuterol (Proventil Neb Soln) 2.5 mg NEB Q2H PRN PRN Reason: Shortness Of Breath/wheezing Albuterol/Ipratropium (Duoneb 3.0-0.5 Mg/3 Ml) 3 ml NEB Q4H PRN PRN Reason: Shortness Of Breath/wheezing Last Admin: 04/30/18 10:59 Dose: 3 ml Allopurinol (Zyloprim) 300 mg PO DAILY [facility] Last Admin: 04/30/18 08:00 Dose: 300 mg Aspirin (Halfprin) 81 mg PO DAILY [facility] Last Admin: 04/30/18 08:00 Dose: 81 mg Bisacodyl (Dulcolax) 5 mg PO DAILY PRN PRN Reason: Constipation Dextrose/Water (Dextrose 50% In Water) 50 ml IVPUSH ASDIRECTED PRN PRN Reason: Hypoglycemia Docusate Sodium (Colace) 100 mg PO BID PRN PRN Reason: Constipation Enoxaparin Sodium (Lovenox) 40 mg SUBCUT DAILY [facility] Last Admin: 04/30/18 08:00 Dose: 40 mg Famotidine (Pepcid) 20 mg PO DAILY [facility] Last Admin: 04/30/18 08:00 Dose: 20 mg Furosemide (Lasix) 20 mg PO DAILY [facility] Last Admin: 04/30/18 08:01 Dose: 20 mg Glipizide (Glucotrol Xl) 10 mg PO BIDMEALS [facility] Last Admin: 04/30/18 06:35 Dose: 10 mg Azithromycin 500 mg/ Sodium (Chloride) 250 mls @ 250 mls/hr IV Q24H [facility] Promethazine HCl 6.25 mg/ (Sodium Chloride) 50.25 mls @ 100 mls/hr IV Q6H PRN PRN Reason: Nausea/Vomiting Insulin Human Lispro (Humalog) 0 unit SUBCUT QIDACANDBED [facility]; Protocol Last Admin: 04/30/18 11:34 Dose: 15 units Lisinopril (Prinivil) 10 mg PO DAILY [facility] Last Admin: 04/30/18 08:01 Dose: 10 mg Magnesium Hydroxide (Milk Of Magnesia) 30 ml PO Q12H PRN PRN Reason: Constipation Metformin HCl (Glucophage) 1,000 mg PO BIDMEALS [facility] Last Admin: 04/30/18 06:35 Dose: 1,000 mg Methylprednisolone Sodium Succinate (Solu-Medrol) 125 mg IVPUSH Q8H [facility] Last Admin: 04/30/18 10:40 Dose: 125 mg Morphine Sulfate (Morphine) 2 mg IVPUSH Q2H PRN PRN Reason: Pain (severe 7-10) Stop: 04/30/18 18:16 Polyethylene Glycol (Miralax) 17 gm PO DAILY PRN PRN Reason: Constipation Promethazine HCl (Phenergan) 25 mg PO Q6H PRN PRN Reason: Nausea/Vomiting Saccharomyces Boulardii (Florastor) 250 mg PO BID [facility] Last Admin: 04/30/18 08:00 Dose: 250 mg Senna/Docusate Sodium (Senna Plus) 1 tab PO BID PRN PRN Reason: Constipation Sertraline HCl (Zoloft) 100 mg PO DAILY [facility] Last Admin: 04/30/18 08:00 Dose: 100 mg Simvastatin (Zocor) 5 mg PO BEDTIME [facility] Last Admin: 04/29/18 22:16 Dose: 5 mg Sodium Chloride (Saline Flush) 10 ml FLUSH ASDIRECTED PRN PRN Reason: Keep Vein Open Last Admin: 04/29/18 10:40 Dose: 10 ml Temazepam (Restoril) 7.5 mg PO BEDTIME PRN PRN Reason: Sleep Last Admin: 04/29/18 22:17 Dose: 7.5 mg Discontinued Medications Albuterol (Proventil Neb Soln) 2.5 mg NEB ONETIME ONE Stop: 04/29/18 12:48 Last Admin: 04/29/18 12:58 Dose: 2.5 mg Albuterol/Ipratropium (Duoneb 3.0-0.5 Mg/3 Ml) 3 ml NEB ONETIME ONE Stop: 04/29/18 10:27 Last Admin: 04/29/18 11:16 Dose: 3 ml Albuterol/Ipratropium (Duoneb 3.0-0.5 Mg/3 Ml) 3 ml NEB ONETIME ONE Stop: 04/29/18 11:46 Last Admin: 04/29/18 12:01 Dose: 3 ml Famotidine (Pepcid) 20 mg PO BID [facility] Azithromycin 500 mg/ Sodium (Chloride) 250 mls @ 250 mls/hr IV ONETIME ONE Stop: 04/29/18 15:23 Last Admin: 04/29/18 15:09 Dose: 250 mls/hr Insulin Human Lispro (Humalog) 0 unit SUBCUT QIDACANDBED [facility]; Protocol Last Admin: 04/30/18 03:24 Dose: Not Given Insulin Human Lispro (Humalog) 12 unit SUBCUT ONETIME ONE Stop: 04/30/18 22:11 Last Admin: 04/29/18 22:18 Dose: 12 units Methylprednisolone Sodium Succinate (Solu-Medrol) 125 mg IVPUSH ONETIME ONE Stop: 04/29/18 10:27 Last Admin: 04/29/18 10:46 Dose: 125 mg Non-Formulary Medication (Meloxicam) 15 mg PO DAILY [place] - Problem List Review Problem List Initiated/Reviewed/Updated: Yes - My Orders Last 24 Hours: My Active Orders 04/30/18 07:00 Insulin Lispro [HumaLOG] See Protocol SUBCUT QIDACANDBED 04/29/18 15:19 Resuscitation Status Routine 04/29/18 18:14 Acetaminophen [Tylenol] 650 mg PO Q4H PRN - Plan Plan:: I/P: Acute: Productive cough w/ Hypoxia * Dyspnea, SOB x 1 week * Differential: Bronchitis vs PNA vs COPD exacerbation * Risk Factors: COPD on O2 at home, h/o asthma, former smoker (quit 4 mo ago), exposure to smoke and sick children at home, 4 dogs and 2 cats at home * CXR in ED--> nothing acute seen * Influenza, RVP, Mycoplasma, Strep pneumo, Sputum culture pending * RT/Duonebs/IS/Acapella * Repeat CXR in 48H * ECHO pending * Azithromycin started in ED--> Continue * After D/C recommendations: * Unsure if she has allergies--> recommend allergy testing * GERARDO testing Chronic: HTN HLD R eye blindness Asthma COPD Renal calculus Gout Back Pain Migraines Neuropathy DM2 Depression Anxiety h/o cholecystectomy h/o hysterectomy Plan: Transferred to Medical Floor on telemetry Droplet precautions Other orders as indicated above Routine AM labs ADA diet PT/OT CM/SW DVT Prophylaxis/GI Prophylaxis Code Status: Full Code; PCP: Lisandra Mazariegos PA-C Increase activity level as tolerated.
[2018-04-30] MEDS: Azithromycin 500 MG in Sodium Chloride 0.9% 250 ML IV SCH (13:29)
[2018-04-30] MEDS ORDERED: methylPREDNISolone Sodium Succinate 125 MG/2 ML SDV IVPUSH SCH (19:00)
[2018-04-30] MEDS: Temazepam 7.5 MG Cap PO PRN (22:09)
[2018-04-30] MEDS: Simvastatin 10 MG Tab PO SCH (22:09)
[2018-04-30] MEDS ORDERED: Insulin Lispro 100 Unit/ML 3 ML KwikPen SUBCUT ONE (22:10)
[2018-05-01] MEDS: methylPREDNISolone Sodium Succinate 125 MG/2 ML SDV IVPUSH SCH ×2 (06:02→16:46)
[2018-05-01] MEDS: metFORMIN 500 MG Tab PO SCH ×2 (06:02→16:47)
[2018-05-01] MEDS: glipiZIDE 5 MG Tab.ER PO SCH ×2 (06:02→16:47)
[2018-05-01] MEDS: Albuterol/Ipratropium 3.0-0.5 MG/3 ML Neb Soln NEB PRN ×4 (06:18→21:28)
--- NOTE | 2018-05-01 08:44 | CR ---
Chest: Two views of the chest were obtained. Comparison: Prior chest x-ray of 04/29/18. Slight atelectasis seen within the lingula. Lungs otherwise are clear. Heart size and mediastinum are normal. Bony structures are within normal limits. Surgical clips seen within the upper abdomen. Impression: 1. Mild atelectasis within the lingula. 2. Nothing acute is otherwise seen on two-view chest x-ray. Diagnostic code #2
[2018-05-01] MEDS: Allopurinol 300 MG Tab PO SCH (09:18)
[2018-05-01] MEDS: Enoxaparin 40 MG/0.4 ML Syringe SUBCUT SCH (09:18)
[2018-05-01] MEDS: Lisinopril 10 MG Tab PO SCH (09:18)
[2018-05-01] MEDS: Famotidine 20 MG Tab PO SCH (09:19)
[2018-05-01] MEDS: Insulin Lispro 100 Unit/ML 3 ML KwikPen SUBCUT SCH ×4 (09:19→21:04)
[2018-05-01] MEDS: Saccharomyces Boulardii (Probiotic) 250 MG Cap PO SCH ×2 (09:19→20:56)
[2018-05-01] MEDS: Aspirin 81 MG Tab.EC PO SCH (09:19)
[2018-05-01] MEDS: Sertraline 50 MG Tab PO SCH (09:19)
[2018-05-01] MEDS: Furosemide 20 MG Tab PO SCH (09:19)
[2018-05-01] MEDS: Azithromycin 500 MG in Sodium Chloride 0.9% 250 ML IV SCH (14:16)
--- NOTE | 2018-05-01 14:55 | PCM.PN ---
- General Info Date of Service: 05/01/18 Admission Dx/Problem (Free Text): Admission Diagnosis/Problem Admission Diagnosis/Problem Bronchitis Subjective Update: In to see Prerna. She is sitting up in bed watching TV. She states she is feeling much better and is no longer on O2, except for at night which is her baseline. I explained her CXR showed some atelectasis and therefore she needs to use her IS and move around more- she states she understands. Still awaiting RVP and Strep pneumo results. Her sugars have also been out of control while here, so solumedrol dose was decreased and she will continue to be on sliding scale insulin as well as her home medications. I explained her A1C was high at 8.3, and she stated that was "much better" and that "it used to be 10!". I recommended she f/u with her PCP regarding this issue, but we will continue to help control it while she's here. She also mentions she has some vaginal irritation/itchiness that is chronic per pt. She mentioned she uses scented soap and alcohol wipes. I educated her on the correct products to use, such as OTC Vagisil and cold compress, and that she should stop using alcohol wipes and only use unscented soaps. She states she understands. It does sound suspicious for yeast infection, matias with her risk factors such as uncontrolled sugars and antibiotic use, so will give 1 dose of Diflucan. For inguinal area irritation that "feels raw" like chafing so will try Vit A&D ointment. If no relief, may need to switch to antifungal such as Nystatin. No other concerns from nursing at this time. Will switch to PO Azithromycin tomorrow in preparation for possible D/C this Sunday. Functional Status: Reports: Pain Controlled, Tolerating Diet, Ambulating, Urinating - Review of Systems General: Reports: No Symptoms. Denies: Fever, Chills HEENT: Reports: No Symptoms Pulmonary: Reports: Shortness of Breath, Cough, Wheezing Cardiovascular: Reports: No Symptoms. Denies: Chest Pain Gastrointestinal: Reports: Diarrhea (chronic), Nausea (intermittent, mild). Denies: Abdominal Pain, Vomiting Genitourinary: Reports: Other (vaginal itching and discharge; describes as clear discharge). Denies: Dysuria, Frequency Musculoskeletal: Reports: Leg Pain (has some inguinal "irritation" that "feels raw") Skin: Reports: No Symptoms Neurological: Reports: No Symptoms Psychiatric: Reports: No Symptoms - Patient Data Vitals - Most Recent: Last Vital Signs Temp 97.9 F 05/01/18 07:19 Pulse 66 05/01/18 07:19 Resp 28 H 05/01/18 07:19 BP 160/89 H 05/01/18 09:18 Pulse Ox 93 L 05/01/18 10:17 Weight - Most Recent: 256 lb I&O - Last 24 Hours: Intake & Output 04/30/18 05/01/18 05/01/18 22:59 06:59 14:59 Intake Total 1570 600 120 Output Total 1650 1000 Balance -80 -400 120 Lab Results Last 24 Hours: Laboratory Results - last 24 hr 04/30/18 04/30/18 05/01/18 Range/Units 16:40 20:51 05:43 WBC 14.17 H (3.98-10.04) K/mm3 RBC 3.81 L (3.98-5.22) M/mm3 Hgb 10.4 L (11.2-15.7) gm/L Hct 33.6 L (34.1-44.9) % MCV 88.2 (79.4-94.8) fl MCH 27.3 (25.6-32.2) pg MCHC 31.0 L (32.2-35.5) g/dl RDW Std Deviation 47.8 H (36.4-46.3) fL Plt Count 196 (182-369) K/mm3 MPV 10.3 (9.4-12.3) fl Neut % (Auto) 87.5 H (34.0-71.1) % Lymph % (Auto) 7.1 L (19.3-51.7) % Young % (Auto) 4.9 (4.7-12.5) % Eos % (Auto) 0 L (0.7-5.8) Baso % (Auto) 0.1 (0.1-1.2) % Neut # (Auto) 12.40 H (1.56-6.13) K/mm3 Lymph # (Auto) 1.01 L (1.18-3.74) K/mm3 Young # (Auto) 0.69 H (0.24-0.36) K/mm3 Eos # (Auto) 0.00 L (0.04-0.36) K/mm3 Baso # (Auto) 0.01 (0.01-0.08) K/mm3 Manual Slide Review Abnormal smear Sodium (136-145) mEq/L Potassium (3.5-5.1) mEq/L Chloride (98-107) mEq/L Carbon Dioxide (21-32) mEq/L Anion Gap (5-15) BUN (7-18) mg/dL Creatinine (0.55-1.02) mg/dL Est Cr Clr Drug Dosing mL/min Estimated GFR (MDRD) (>60) mL/min BUN/Creatinine Ratio (14-18) Glucose 390 H (80-115) mg/dL POC Glucose 362 H (80-115) mg/dL Calcium (8.5-10.1) mg/dL Magnesium (1.8-2.4) mg/dl C-Reactive Protein (<1.0) mg/dL 05/01/18 05/01/18 05/01/18 Range/Units 05:43 06:00 10:45 WBC (3.98-10.04) K/mm3 RBC (3.98-5.22) M/mm3 Hgb (11.2-15.7) gm/L Hct (34.1-44.9) % MCV (79.4-94.8) fl MCH (25.6-32.2) pg MCHC (32.2-35.5) g/dl RDW Std Deviation (36.4-46.3) fL Plt Count (182-369) K/mm3 MPV (9.4-12.3) fl Neut % (Auto) (34.0-71.1) % Lymph % (Auto) (19.3-51.7) % Young % (Auto) (4.7-12.5) % Eos % (Auto) (0.7-5.8) Baso % (Auto) (0.1-1.2) % Neut # (Auto) (1.56-6.13) K/mm3 Lymph # (Auto) (1.18-3.74) K/mm3 Young # (Auto) (0.24-0.36) K/mm3 Eos # (Auto) (0.04-0.36) K/mm3 Baso # (Auto) (0.01-0.08) K/mm3 Manual Slide Review Sodium 135 L (136-145) mEq/L Potassium 4.6 (3.5-5.1) mEq/L Chloride 101 (98-107) mEq/L Carbon Dioxide 24 (21-32) mEq/L Anion Gap 14.6 (5-15) BUN 39 H (7-18) mg/dL Creatinine 1.2 H (0.55-1.02) mg/dL Est Cr Clr Drug Dosing 38.75 mL/min Estimated GFR (MDRD) 45 (>60) mL/min BUN/Creatinine Ratio 32.5 H (14-18) Glucose 319 H (80-115) mg/dL POC Glucose 296 H 371 H (80-115) mg/dL Calcium 9.1 (8.5-10.1) mg/dL Magnesium 2.0 (1.8-2.4) mg/dl C-Reactive Protein 0.2 (<1.0) mg/dL Antoni Results Last 24 Hours: Microbiology 04/29/18 19:55 Gram Stain - Final Sputum - Expectorated Sputum Culture - Final Normal Maria Alejandra Med Orders - Current: Current Medications Acetaminophen (Tylenol) 650 mg PO Q4H PRN PRN Reason: Pain (Mild 1-3)/fever Hydrocodone Bitart/Acetaminophen ([place] 325-5 Mg) 1 tab PO Q4H PRN PRN Reason: Pain (moderate 4-6) Albuterol (Proventil Neb Soln) 2.5 mg NEB Q2H PRN PRN Reason: Shortness Of Breath/wheezing Albuterol/Ipratropium (Duoneb 3.0-0.5 Mg/3 Ml) 3 ml NEB Q4H PRN PRN Reason: Shortness Of Breath/wheezing Last Admin: 05/01/18 10:07 Dose: 3 ml Allopurinol (Zyloprim) 300 mg PO DAILY [facility] Last Admin: 05/01/18 09:18 Dose: 300 mg Aspirin (Halfprin) 81 mg PO DAILY [facility] Last Admin: 05/01/18 09:19 Dose: 81 mg Azithromycin (Zithromax) 500 mg PO DAILY@1400 [facility] Bisacodyl (Dulcolax) 5 mg PO DAILY PRN PRN Reason: Constipation Dextrose/Water (Dextrose 50% In Water) 50 ml IVPUSH ASDIRECTED PRN PRN Reason: Hypoglycemia Docusate Sodium (Colace) 100 mg PO BID PRN PRN Reason: Constipation Enoxaparin Sodium (Lovenox) 40 mg SUBCUT DAILY [facility] Last Admin: 05/01/18 09:18 Dose: 40 mg Famotidine (Pepcid) 20 mg PO DAILY [facility] Last Admin: 05/01/18 09:19 Dose: 20 mg Furosemide (Lasix) 20 mg PO DAILY [facility] Last Admin: 05/01/18 09:19 Dose: 20 mg Glipizide (Glucotrol Xl) 10 mg PO BIDMEALS [facility] Last Admin: 05/01/18 06:02 Dose: 10 mg Azithromycin 500 mg/ Sodium (Chloride) 250 mls @ 250 mls/hr IV Q24H [facility] Stop: 05/01/18 18:00 Last Admin: 05/01/18 14:16 Dose: 250 mls/hr Promethazine HCl 6.25 mg/ (Sodium Chloride) 50.25 mls @ 100 mls/hr IV Q6H PRN PRN Reason: Nausea/Vomiting Insulin Human Lispro (Humalog) 0 unit SUBCUT QIDACANDBED [facility]; Protocol Last Admin: 05/01/18 12:23 Dose: 15 units Lisinopril (Prinivil) 10 mg PO DAILY [facility] Last Admin: 05/01/18 09:18 Dose: 10 mg Magnesium Hydroxide (Milk Of Magnesia) 30 ml PO Q12H PRN PRN Reason: Constipation Metformin HCl (Glucophage) 1,000 mg PO BIDMEALS [facility] Last Admin: 05/01/18 06:02 Dose: 1,000 mg Methylprednisolone Sodium Succinate (Solu-Medrol) 125 mg IVPUSH Q12H [facility] Last Admin: 05/01/18 06:02 Dose: 125 mg Insulin Degludec [ Tresiba Flextouch U- 100] Ptom 0 each SUBCUT DAILY [facility] Polyethylene Glycol (Miralax) 17 gm PO DAILY PRN PRN Reason: Constipation Promethazine HCl (Phenergan) 25 mg PO Q6H PRN PRN Reason: Nausea/Vomiting Saccharomyces Boulardii (Florastor) 250 mg PO BID [facility] Last Admin: 05/01/18 09:19 Dose: 250 mg Senna/Docusate Sodium (Senna Plus) 1 tab PO BID PRN PRN Reason: Constipation Sertraline HCl (Zoloft) 100 mg PO DAILY [facility] Last Admin: 05/01/18 09:19 Dose: 100 mg Simvastatin (Zocor) 5 mg PO BEDTIME [facility] Last Admin: 04/30/18 22:09 Dose: 5 mg Sodium Chloride (Saline Flush) 10 ml FLUSH ASDIRECTED PRN PRN Reason: Keep Vein Open Last Admin: 04/29/18 10:40 Dose: 10 ml Temazepam (Restoril) 7.5 mg PO BEDTIME PRN PRN Reason: Sleep Last Admin: 04/30/18 22:09 Dose: 7.5 mg Discontinued Medications Acetaminophen (Tylenol) 650 mg PO Q4H PRN PRN Reason: Pain Last Admin: 04/30/18 03:48 Dose: 650 mg Albuterol (Proventil Neb Soln) 2.5 mg NEB ONETIME ONE Stop: 04/29/18 12:48 Last Admin: 04/29/18 12:58 Dose: 2.5 mg Albuterol/Ipratropium (Duoneb 3.0-0.5 Mg/3 Ml) 3 ml NEB ONETIME ONE Stop: 04/29/18 10:27 Last Admin: 04/29/18 11:16 Dose: 3 ml Albuterol/Ipratropium (Duoneb 3.0-0.5 Mg/3 Ml) 3 ml NEB ONETIME ONE Stop: 04/29/18 11:46 Last Admin: 04/29/18 12:01 Dose: 3 ml Famotidine (Pepcid) 20 mg PO BID [facility] Azithromycin 500 mg/ Sodium (Chloride) 250 mls @ 250 mls/hr IV ONETIME ONE Stop: 04/29/18 15:23 Last Admin: 04/29/18 15:09 Dose: 250 mls/hr Insulin Human Lispro (Humalog) 0 unit SUBCUT QIDACANDBED [facility]; Protocol Last Admin: 04/30/18 03:24 Dose: Not Given Insulin Human Lispro (Humalog) 12 unit SUBCUT ONETIME ONE Stop: 04/30/18 22:11 Last Admin: 04/29/18 22:18 Dose: 12 units Methylprednisolone Sodium Succinate (Solu-Medrol) 125 mg IVPUSH ONETIME ONE Stop: 04/29/18 10:27 Last Admin: 04/29/18 10:46 Dose: 125 mg Methylprednisolone Sodium Succinate (Solu-Medrol) 125 mg IVPUSH Q8H [facility] Last Admin: 04/30/18 17:34 Dose: 125 mg Methylprednisolone Sodium Succinate (Solu-Medrol) 125 mg IVPUSH Q12H [facility] Morphine Sulfate (Morphine) 2 mg IVPUSH Q2H PRN PRN Reason: Pain (severe 7-10) Stop: 04/30/18 18:16 Non-Formulary Medication (Meloxicam) 15 mg PO DAILY [facility] - Exam Quality Assessment: DVT Prophylaxis. No: Supplemental Oxygen General: Alert, Oriented, Cooperative, No Acute Distress HEENT: Pupils Equal, Pupils Reactive, EOMI, Mucous Membr. Moist/[place]: Supple Lungs: Clear to Auscultation, Normal Respiratory Effort Cardiovascular: Regular Rate, Regular Rhythm GI/Abdominal Exam: Normal Bowel Sounds, Soft, Non-Tender, No Organomegaly, No Distention, No Abnormal Bruit, No Mass, Pelvis Stable (Female) Exam: Deferred (pt did not want to be examined) Back Exam: Normal Inspection Extremities: Normal Inspection, Normal Range of Motion, Non-Tender, No Pedal Edema, Normal Capillary Refill Peripheral Pulses: 2+: Posterior Tibial (L), Posterior Tibial (R), Dorsalis Pedis (L), Dorsalis Pedis (R) Skin: Warm, Dry, Intact Neurological: No New Focal Deficit Psy/Mental Status: Alert, Normal Affect, Normal Mood - Problem List & Annotations (1) Acute bronchitis SNOMED Code(s): 52478362 Code(s): J20.9 - ACUTE BRONCHITIS, UNSPECIFIED Status: Acute Priority: High Current Visit: Yes Qualifiers: Bronchitis organism: unspecified organism Qualified Code(s): J20.9 - Acute bronchitis, unspecified (2) Acute exacerbation of chronic obstructive pulmonary disease (COPD) SNOMED Code(s): 981701940 Code(s): J44.1 - CHRONIC OBSTRUCTIVE PULMONARY DISEASE W (ACUTE) EXACERBATION Status: Acute Priority: High Current Visit: Yes (3) (HFpEF) heart failure with preserved ejection fraction SNOMED Code(s): 402613705 Code(s): I50.30 - UNSPECIFIED DIASTOLIC (CONGESTIVE) HEART FAILURE Status: Chronic Priority: Medium Current Visit: Yes (4) Vaginal irritation SNOMED Code(s): 083010688 Code(s): N89.8 - OTHER SPECIFIED NONINFLAMMATORY DISORDERS OF VAGINA Status : Chronic Priority: Low Current Visit: Yes - Problem List Review Problem List Initiated/Reviewed/Updated: Yes - My Orders Last 24 Hours: My Active Orders 04/30/18 14:00 Azithromycin [Zithromax] 500 mg Sodium Chloride 0.9% [Normal Saline] 250 ml IV Q24H 05/02/18 05:11 BASIC METABOLIC PANEL,BMP [CHEM] AM C-REACTIVE PROTEIN [CHEM] AM CBC WITH AUTO DIFF [HEME] AM MAGNESIUM [CHEM] AM 05/03/18 05:11 BASIC METABOLIC PANEL,BMP [CHEM] AM C-REACTIVE PROTEIN [CHEM] AM CBC WITH AUTO DIFF [HEME] AM MAGNESIUM [CHEM] AM 05/04/18 05:11 BASIC METABOLIC PANEL,BMP [CHEM] AM C-REACTIVE PROTEIN [CHEM] AM CBC WITH AUTO DIFF [HEME] AM MAGNESIUM [CHEM] AM - Plan Plan:: I/P: Acute: Productive cough w/ Hypoxia * Dyspnea, SOB x 1 week * Differential: Bronchitis vs PNA vs COPD exacerbation * Risk Factors: COPD on O2 at home, HFpEF, Restrictive Airway Dz, h/o asthma, former smoker (quit 4 mo ago), exposure to smoke and sick children at home, 4 dogs and 2 cats at home * CXR 04/29/18 in ED--> nothing acute seen * Influenza negative * R/O PNA: * Mycoplasma negative * Sputum culture shows normal maria alejandra * RVP, Strep pneumo pending * RT/Duonebs/IS/Acapella * Repeat CXR : * 1. Mild atelectasis within the lingula. * 2. Nothing acute is otherwise seen on two-view chest x-ray. * PFT 03/29/18: moderate to severe restrictive airway disease * Pulmonary rehab not started yet * F/U with equipment cleaner and tester after D/C * Azithromycin started in ED--> Continue * After D/C recommendations: * Unsure if she has allergies--> recommend allergy testing * GERARDO testing DM2, Uncontrolled * Acute on Chronic * A1C 8.3 * Increased Glucose while here * Risk factor: on Solumedrol * Takes Glipizide, Tresiba, Metformin--> continue * Sliding scale insulin while here * Increase activity level as tolerated * F/U w/ PCP Vaginal Irritation * Pt complains of chronic vaginal itchiness w/ discharge * Risk Factors: Antibiotic use, uncontrolled sugars with DM2, uses scented soap and alcohol swabs to clean * Educated on risk factors as well as to stop using scented soap and alcohol swab--> should only be using cold compress or OTC products such as Vagisil * Will get 1 dose of Diflucan while here * Set up Parent Trainer appt at D/C Chronic: HTN HLD HFpEF--> ECHO 07/30/17: LVEF 55-60%, Grade 1 pattern LV diastolic filling, Mild LVH R eye blindness Asthma COPD Renal calculus Gout Back Pain Migraines Neuropathy Depression Anxiety h/o cholecystectomy h/o hysterectomy Plan: Transferred to Medical Floor on telemetry Droplet precautions Other orders as indicated above Routine AM labs ADA diet PT/OT CM/SW DVT Prophylaxis/GI Prophylaxis Code Status: Full Code; PCP: Lisandra Mazariegos PA-C D/C Plan: * Set up Gynecology appt for chronic itching/irritation * F/U with Air Twister Winder--> needs pulmonary rehab * Unsure if she has allergies--> recommend allergy testing * GERARDO testing
[2018-05-01] MEDS ORDERED: Vitamins A and D Oint 56.7 GM Tube TOP PRN (16:03)
[2018-05-01] MEDS ORDERED: Fluconazole 150 MG Tab PO ONE (16:08)
[2018-05-01] MEDS: Simvastatin 10 MG Tab PO SCH (20:56)
[2018-05-01] MEDS: INSULIN DEGLUDEC SUBCUT SCH (21:03)
[2018-05-02] MEDS: methylPREDNISolone Sodium Succinate 125 MG/2 ML SDV IVPUSH SCH ×2 (05:29→16:36)
[2018-05-02] MEDS: glipiZIDE 5 MG Tab.ER PO SCH ×2 (06:18→16:27)
[2018-05-02] MEDS: metFORMIN 500 MG Tab PO SCH ×2 (06:18→16:26)
[2018-05-02] MEDS: Insulin Lispro 100 Unit/ML 3 ML KwikPen SUBCUT SCH ×5 (07:54→23:24)
[2018-05-02] MEDS: Enoxaparin 40 MG/0.4 ML Syringe SUBCUT SCH ×2 (07:55→08:02)
[2018-05-02] MEDS: Furosemide 20 MG Tab PO SCH (07:59)
[2018-05-02] MEDS: Lisinopril 10 MG Tab PO SCH (07:59)
[2018-05-02] MEDS: Sertraline 50 MG Tab PO SCH (07:59)
[2018-05-02] MEDS: Allopurinol 300 MG Tab PO SCH (07:59)
[2018-05-02] MEDS: Saccharomyces Boulardii (Probiotic) 250 MG Cap PO SCH ×2 (08:00→20:44)
[2018-05-02] MEDS: Famotidine 20 MG Tab PO SCH (08:00)
[2018-05-02] MEDS: Aspirin 81 MG Tab.EC PO SCH (08:00)
[2018-05-02] MEDS: guaiFENesin 100 MG/5 ML Soln 10 ML UD Cup PO PRN ×3 (12:17→20:41)
[2018-05-02] MEDS: Azithromycin 250 MG Tab PO SCH (13:20)
[2018-05-02] MEDS: Albuterol/Ipratropium 3.0-0.5 MG/3 ML Neb Soln NEB PRN (13:23)
--- NOTE | 2018-05-02 16:17 | PCM.PN ---
- General Info Date of Service: 05/02/18 Admission Dx/Problem (Free Text): Admission Diagnosis/Problem Admission Diagnosis/Problem Bronchitis Subjective Update: In to see Prerna. She is sitting up in bed eating dinner. She states she is feeling better today and has noticed some improvement with her breathing. I explained that her viral panel came back showing enterovirus/rhinovirus and that her chronic lung issues have exacerbated her condition. I explained that we have done as much as we can here, most of this seems to be a chronic issue that she will need to f/u with a hoister about. She states she understands. Will also start her on Claritin for allergy coverage as well as Pulmicort to see if that helps as well. She is aware of the plan to discharge home tomorrow. She did say she was OK with the plan, but did have some complaints about living with her daughter and feeling she isn't allowed to do anything around the house. I think a visit with Case Management/SW may help at this point regarding that issue. Functional Status: Reports: Pain Controlled, Tolerating Diet, Ambulating, Urinating - Review of Systems General: Reports: No Symptoms. Denies: Fever, Chills HEENT: Reports: No Symptoms Pulmonary: Reports: Shortness of Breath, Cough (improving), Sputum (improving), Wheezing Cardiovascular: Reports: No Symptoms. Denies: Chest Pain Gastrointestinal: Reports: No Symptoms. Denies: Abdominal Pain, Diarrhea, Nausea, Vomiting Genitourinary: Reports: No Symptoms Musculoskeletal: Reports: No Symptoms Skin: Reports: No Symptoms Neurological: Reports: No Symptoms Psychiatric: Reports: No Symptoms - Patient Data Vitals - Most Recent: Last Vital Signs Temp 97.9 F 05/02/18 14:26 Pulse 77 05/02/18 14:26 Resp 20 05/02/18 14:26 BP 98/45 L 05/02/18 14:26 Pulse Ox 92 L 05/02/18 14:26 Weight - Most Recent: 257 lb 1.6 oz I&O - Last 24 Hours: Intake & Output 05/02/18 05/02/18 05/02/18 06:59 14:59 22:59 Intake Total 1350 1680 Output Total 1350 1150 Balance 0 530 Lab Results Last 24 Hours: Laboratory Results - last 24 hr 04/29/18 05/01/18 05/02/18 Range/Units 18:34 16:44 05:39 WBC (3.98-10.04) K/mm3 RBC (3.98-5.22) M/mm3 Hgb (11.2-15.7) gm/L Hct (34.1-44.9) % MCV (79.4-94.8) fl MCH (25.6-32.2) pg MCHC (32.2-35.5) g/dl RDW Std Deviation (36.4-46.3) fL Plt Count (182-369) K/mm3 MPV (9.4-12.3) fl Neut % (Auto) (34.0-71.1) % Lymph % (Auto) (19.3-51.7) % [place] % (Auto) (4.7-12.5) % Eos % (Auto) (0.7-5.8) Baso % (Auto) (0.1-1.2) % Neut # (Auto) (1.56-6.13) K/mm3 Lymph # (Auto) (1.18-3.74) K/mm3 [place] # (Auto) (0.24-0.36) K/mm3 Eos # (Auto) (0.04-0.36) K/mm3 Baso # (Auto) (0.01-0.08) K/mm3 Manual Slide Review Sodium (136-145) mEq/L Potassium (3.5-5.1) mEq/L Chloride (98-107) mEq/L Carbon Dioxide (21-32) mEq/L Anion Gap (5-15) BUN (7-18) mg/dL Creatinine (0.55-1.02) mg/dL Est Cr Clr Drug Dosing mL/min Estimated GFR (MDRD) (>60) mL/min BUN/Creatinine Ratio (14-18) Glucose (80-115) mg/dL POC Glucose 386 H 373 H (80-115) mg/dL Calcium (8.5-10.1) mg/dL Magnesium (1.8-2.4) mg/dl C-Reactive Protein (<1.0) mg/dL Adenovirus (PCR) Not detected (Not Detected) B. pertussis DNA (PCR) Not detected (Not Detected) B.parapertussis DNA PCR Not detected (Not Detected) C. pneumoniae DNA (PCR) Not detected (Not Detected) Coronavirus (PCR) Not detected (Not Detected) Human Metapneumovir PCR Not detected (Not Detected) Influenza A (RT-PCR) Not detected (Not Detected) Influenza B (RT-PCR) Not detected (Not Detected) M. pneumoniae (PCR) Not detected (Not Detected) Parainfluen 1,2,3,4 PCR Not detected (Not Detected) RSV (PCR) Not detected (Not Detected) Entero/Rhino (PCR) Detected H (Not Detected) 05/02/18 05/02/18 05/02/18 Range/Units 05:40 05:40 10:34 WBC 12.86 H (3.98-10.04) K/mm3 RBC 3.87 L (3.98-5.22) M/mm3 Hgb 10.5 L (11.2-15.7) gm/L Hct 34.1 (34.1-44.9) % MCV 88.1 (79.4-94.8) fl MCH 27.1 (25.6-32.2) pg MCHC 30.8 L (32.2-35.5) g/dl RDW Std Deviation 47.6 H (36.4-46.3) fL Plt Count 214 (182-369) K/mm3 MPV 10.5 (9.4-12.3) fl Neut % (Auto) 88.4 H (34.0-71.1) % Lymph % (Auto) 8.0 L (19.3-51.7) % [place] % (Auto) 3.2 L (4.7-12.5) % Eos % (Auto) 0 L (0.7-5.8) Baso % (Auto) 0.0 L (0.1-1.2) % Neut # (Auto) 11.37 H (1.56-6.13) K/mm3 Lymph # (Auto) 1.03 L (1.18-3.74) K/mm3 [place] # (Auto) 0.41 H (0.24-0.36) K/mm3 Eos # (Auto) 0.00 L (0.04-0.36) K/mm3 Baso # (Auto) 0.00 L (0.01-0.08) K/mm3 Manual Slide Review Abnormal smear Sodium 138 (136-145) mEq/L Potassium 4.4 (3.5-5.1) mEq/L Chloride 102 (98-107) mEq/L Carbon Dioxide 27 (21-32) mEq/L Anion Gap 13.4 (5-15) BUN 43 H (7-18) mg/dL Creatinine 1.2 H (0.55-1.02) mg/dL Est Cr Clr Drug Dosing 38.75 mL/min Estimated GFR (MDRD) 45 (>60) mL/min BUN/Creatinine Ratio 35.8 H (14-18) Glucose 315 H (80-115) mg/dL POC Glucose 364 H (80-115) mg/dL Calcium 9.2 (8.5-10.1) mg/dL Magnesium 2.1 (1.8-2.4) mg/dl C-Reactive Protein < 0.2 (<1.0) mg/dL Adenovirus (PCR) (Not Detected) B. pertussis DNA (PCR) (Not Detected) B.parapertussis DNA PCR (Not Detected) C. pneumoniae DNA (PCR) (Not Detected) Coronavirus (PCR) (Not Detected) Human Metapneumovir PCR (Not Detected) Influenza A (RT-PCR) (Not Detected) Influenza B (RT-PCR) (Not Detected) M. pneumoniae (PCR) (Not Detected) Parainfluen 1,2,3,4 PCR (Not Detected) RSV (PCR) (Not Detected) Entero/Rhino (PCR) (Not Detected) Antoni Results Last 24 Hours: Microbiology 04/29/18 21:10 Streptococcus pneumoniae Antigen (M - Final Urine 04/29/18 19:55 Gram Stain - Final Sputum - Expectorated Sputum Culture - Final Normal Maria Alejandra Med Orders - Current: Current Medications Acetaminophen (Tylenol) 650 mg PO Q4H PRN PRN Reason: Pain (Mild 1-3)/fever Hydrocodone Bitart/Acetaminophen (Richey 325-5 Mg) 1 tab PO Q4H PRN PRN Reason: Pain (moderate 4-6) Albuterol (Proventil Neb Soln) 2.5 mg NEB Q2H PRN PRN Reason: Shortness Of Breath/wheezing Albuterol/Ipratropium (Duoneb 3.0-0.5 Mg/3 Ml) 3 ml NEB Q4H PRN PRN Reason: Shortness Of Breath/wheezing Last Admin: 05/02/18 13:23 Dose: 3 ml Allopurinol (Zyloprim) 300 mg PO DAILY [facility] Last Admin: 05/02/18 07:59 Dose: 300 mg Aspirin (Halfprin) 81 mg PO DAILY [facility] Last Admin: 05/02/18 08:00 Dose: 81 mg Azithromycin (Zithromax) 500 mg PO DAILY@1400 [facility] Last Admin: 05/02/18 13:20 Dose: 500 mg Bisacodyl (Dulcolax) 5 mg PO DAILY PRN PRN Reason: Constipation Dextrose/Water (Dextrose 50% In Water) 50 ml IVPUSH ASDIRECTED PRN PRN Reason: Hypoglycemia Docusate Sodium (Colace) 100 mg PO BID PRN PRN Reason: Constipation Enoxaparin Sodium (Lovenox) 40 mg SUBCUT DAILY [facility] Last Admin: 05/02/18 08:02 Dose: Not Given Famotidine (Pepcid) 20 mg PO DAILY [facility] Last Admin: 05/02/18 08:00 Dose: 20 mg Furosemide (Lasix) 20 mg PO DAILY [facility] Last Admin: 05/02/18 07:59 Dose: 20 mg Glipizide (Glucotrol Xl) 10 mg PO BIDMEALS [facility] Last Admin: 05/02/18 06:18 Dose: 10 mg Guaifenesin (Robitussin) 200 mg PO Q4H PRN PRN Reason: COUGH Last Admin: 05/02/18 12:17 Dose: 200 mg Promethazine HCl 6.25 mg/ (Sodium Chloride) 50.25 mls @ 100 mls/hr IV Q6H PRN PRN Reason: Nausea/Vomiting Insulin Human Lispro (Humalog) 0 unit SUBCUT QIDACANDBED [facility]; Protocol Last Admin: 05/02/18 10:35 Dose: 15 units Lisinopril (Prinivil) 10 mg PO DAILY [facility] Last Admin: 05/02/18 07:59 Dose: 10 mg Magnesium Hydroxide (Milk Of Magnesia) 30 ml PO Q12H PRN PRN Reason: Constipation Metformin HCl (Glucophage) 1,000 mg PO BIDMEALS [facility] Last Admin: 05/02/18 06:18 Dose: 1,000 mg Methylprednisolone Sodium Succinate (Solu-Medrol) 125 mg IVPUSH Q12H [facility] Last Admin: 05/02/18 05:29 Dose: 125 mg Insulin Degludec [ Tresiba Flextouch U- 100] Ptom 0 each SUBCUT BEDTIME [facility] Last Admin: 05/01/18 21:03 Dose: 73 each Polyethylene Glycol (Miralax) 17 gm PO DAILY PRN PRN Reason: Constipation Promethazine HCl (Phenergan) 25 mg PO Q6H PRN PRN Reason: Nausea/Vomiting Saccharomyces Boulardii (Florastor) 250 mg PO BID [facility] Last Admin: 05/02/18 08:00 Dose: 250 mg Senna/Docusate Sodium (Senna Plus) 1 tab PO BID PRN PRN Reason: Constipation Sertraline HCl (Zoloft) 100 mg PO DAILY [facility] Last Admin: 05/02/18 07:59 Dose: 100 mg Simvastatin (Zocor) 5 mg PO BEDTIME [facility] Last Admin: 05/01/18 20:56 Dose: 5 mg Sodium Chloride (Saline Flush) 10 ml FLUSH ASDIRECTED PRN PRN Reason: Keep Vein Open Last Admin: 04/29/18 10:40 Dose: 10 ml Temazepam (Restoril) 7.5 mg PO BEDTIME PRN PRN Reason: Sleep Last Admin: 04/30/18 22:09 Dose: 7.5 mg Vitamin A/Vitamin D (Vitamin A & D) 0 gm TOP Q2H PRN PRN Reason: Agitation Discontinued Medications Acetaminophen (Tylenol) 650 mg PO Q4H PRN PRN Reason: Pain Last Admin: 04/30/18 03:48 Dose: 650 mg Albuterol (Proventil Neb Soln) 2.5 mg NEB ONETIME ONE Stop: 04/29/18 12:48 Last Admin: 04/29/18 12:58 Dose: 2.5 mg Albuterol/Ipratropium (Duoneb 3.0-0.5 Mg/3 Ml) 3 ml NEB ONETIME ONE Stop: 04/29/18 10:27 Last Admin: 04/29/18 11:16 Dose: 3 ml Albuterol/Ipratropium (Duoneb 3.0-0.5 Mg/3 Ml) 3 ml NEB ONETIME ONE Stop: 04/29/18 11:46 Last Admin: 04/29/18 12:01 Dose: 3 ml Famotidine (Pepcid) 20 mg PO BID [facility] Fluconazole (Diflucan) 150 mg PO ONETIME ONE Stop: 05/01/18 16:09 Last Admin: 05/01/18 16:46 Dose: 150 mg Azithromycin 500 mg/ Sodium (Chloride) 250 mls @ 250 mls/hr IV ONETIME ONE Stop: 04/29/18 15:23 Last Admin: 04/29/18 15:09 Dose: 250 mls/hr Azithromycin 500 mg/ Sodium (Chloride) 250 mls @ 250 mls/hr IV Q24H [facility] Stop: 05/01/18 18:00 Last Admin: 05/01/18 14:16 Dose: 250 mls/hr Insulin Human Lispro (Humalog) 0 unit SUBCUT QIDACANDBED [facility]; Protocol Last Admin: 04/30/18 03:24 Dose: Not Given Insulin Human Lispro (Humalog) 12 unit SUBCUT ONETIME ONE Stop: 04/30/18 22:11 Last Admin: 04/29/18 22:18 Dose: 12 units Methylprednisolone Sodium Succinate (Solu-Medrol) 125 mg IVPUSH ONETIME ONE Stop: 04/29/18 10:27 Last Admin: 04/29/18 10:46 Dose: 125 mg Methylprednisolone Sodium Succinate (Solu-Medrol) 125 mg IVPUSH Q8H [facility] Last Admin: 04/30/18 17:34 Dose: 125 mg Methylprednisolone Sodium Succinate (Solu-Medrol) 125 mg IVPUSH Q12H [facility] Morphine Sulfate (Morphine) 2 mg IVPUSH Q2H PRN PRN Reason: Pain (severe 7-10) Stop: 04/30/18 18:16 Non-Formulary Medication (Meloxicam) 15 mg PO DAILY [facility] - Exam Quality Assessment: DVT Prophylaxis General: Alert, Oriented, Cooperative, No Acute Distress HEENT: Pupils Equal, Pupils Reactive, EOMI, Mucous Membr. Moist/Dawn Neck: Supple Lungs: Normal Respiratory Effort, Decreased Breath Sounds, Wheezing Cardiovascular: Regular Rate, Regular Rhythm GI/Abdominal Exam: Normal Bowel Sounds, Soft, Non-Tender, No Organomegaly, No Distention, No Abnormal Bruit, No Mass, Pelvis Stable (Female) Exam: Deferred Back Exam: Normal Inspection Extremities: Normal Inspection, Normal Range of Motion, Non-Tender, No Pedal Edema, Normal Capillary Refill Peripheral Pulses: 2+: Posterior Tibial (L), Posterior Tibial (R), Dorsalis Pedis (L), Dorsalis Pedis (R) Skin: Warm, Dry, Intact Neurological: No New Focal Deficit Psy/Mental Status: Alert, Normal Affect, Normal Mood - Problem List & Annotations (1) Acute bronchitis SNOMED Code(s): 87334735 Code(s): J20.9 - ACUTE BRONCHITIS, UNSPECIFIED Status: Acute Priority: High Current Visit: Yes Qualifiers: Bronchitis organism: unspecified organism Qualified Code(s): J20.9 - Acute bronchitis, unspecified (2) Acute exacerbation of chronic obstructive pulmonary disease (COPD) SNOMED Code(s): 650011607 Code(s): J44.1 - CHRONIC OBSTRUCTIVE PULMONARY DISEASE W (ACUTE) EXACERBATION Status: Acute Priority: High Current Visit: Yes (3) (HFpEF) heart failure with preserved ejection fraction SNOMED Code(s): 035089757 Code(s): I50.30 - UNSPECIFIED DIASTOLIC (CONGESTIVE) HEART FAILURE Status: Chronic Priority: Medium Current Visit: Yes (4) Vaginal irritation SNOMED Code(s): 265724809 Code(s): N89.8 - OTHER SPECIFIED NONINFLAMMATORY DISORDERS OF VAGINA Status : Chronic Priority: Low Current Visit: Yes - Problem List Review Problem List Initiated/Reviewed/Updated: Yes - My Orders Last 24 Hours: My Active Orders 05/01/18 16:03 Vitamins A and D [Vitamin A & D] 0 gm TOP Q2H PRN 05/03/18 05:11 BASIC METABOLIC PANEL,BMP [CHEM] AM C-REACTIVE PROTEIN [CHEM] AM CBC WITH AUTO DIFF [HEME] AM MAGNESIUM [CHEM] AM 05/04/18 05:11 BASIC METABOLIC PANEL,BMP [CHEM] AM C-REACTIVE PROTEIN [CHEM] AM CBC WITH AUTO DIFF [HEME] AM MAGNESIUM [CHEM] AM - Plan Plan:: I/P: Acute: Productive cough w/ Hypoxia * Dyspnea, SOB x 1 week * Differential: Bronchitis vs PNA vs COPD exacerbation * Risk Factors: COPD on O2 at home, HFpEF, Restrictive Airway Dz, h/o asthma, former smoker (quit 4 mo ago), exposure to smoke and sick children at home, 4 dogs and 2 cats at home * CXR 04/29/18 in ED--> nothing acute seen * Influenza negative * R/O PNA: * Mycoplasma, Strep pneumo negative * Sputum culture shows normal maria alejandra * RVP shows ENTEROVIRUS/RHINOVIRUS * RT/Duonebs/IS/Acapella * Repeat CXR : * 1. Mild atelectasis within the lingula. * 2. Nothing acute is otherwise seen on two-view chest x-ray. * PFT 03/29/18: moderate to severe restrictive airway disease * Pulmonary rehab not started yet * F/U with hoister after D/C * Pulmicort--> switch to Advair at D/C * Start Claritin * Azithromycin started in ED--> Continue * After D/C recommendations: * Unsure if she has allergies--> recommend allergy testing * GERARDO testing DM2, Uncontrolled * Acute on Chronic * A1C 8.3 * Increased Glucose while here * Risk factor: on Solumedrol * Takes Glipizide, Tresiba, Metformin--> continue * Sliding scale insulin while here * Increase activity level as tolerated * F/U w/ PCP Vaginal Irritation * Pt complains of chronic vaginal itchiness w/ discharge * Risk Factors: Antibiotic use, uncontrolled sugars with DM2, uses scented soap and alcohol swabs to clean * Educated on risk factors as well as to stop using scented soap and alcohol swab--> should only be using cold compress or OTC products such as Vagisil * Will get 1 dose of Diflucan while here * Set up Pot Holder Binder appt at D/C Chronic: HTN HLD HFpEF--> ECHO 07/30/17: LVEF 55-60%, Grade 1 pattern LV diastolic filling, Mild LVH R eye blindness Asthma COPD Renal calculus Gout Back Pain Migraines Neuropathy Depression Anxiety h/o cholecystectomy h/o hysterectomy Plan: Transferred to Medical Floor on telemetry Droplet precautions Other orders as indicated above Routine AM labs ADA diet PT/OT CM/SW DVT Prophylaxis/GI Prophylaxis Code Status: Full Code; PCP: Lisandra Mazariegos PA-C D/C Plan: * Set up Gynecology appt for chronic itching/irritation * F/U with 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
[2018-05-02] MEDS: Loratadine 10 MG Tab PO SCH (16:31)
[2018-05-02] MEDS: Temazepam 7.5 MG Cap PO PRN (20:39)
[2018-05-02] MEDS: Simvastatin 10 MG Tab PO SCH (20:40)
[2018-05-02] MEDS: INSULIN DEGLUDEC SUBCUT SCH (20:41)
[2018-05-02] MEDS: Budesonide 0.25 MG/2 ML Neb Susp NEB SCH (21:10)
[2018-05-03] MEDS: Budesonide 0.25 MG/2 ML Neb Susp NEB SCH (06:06)
[2018-05-03] MEDS: methylPREDNISolone Sodium Succinate 125 MG/2 ML SDV IVPUSH SCH (06:12)
[2018-05-03] MEDS: glipiZIDE 5 MG Tab.ER PO SCH ×2 (06:15→17:06)
[2018-05-03] MEDS: metFORMIN 500 MG Tab PO SCH ×2 (06:15→17:06)
[2018-05-03] MEDS: Insulin Lispro 100 Unit/ML 3 ML KwikPen SUBCUT SCH ×3 (08:25→17:06)
[2018-05-03] MEDS: Saccharomyces Boulardii (Probiotic) 250 MG Cap PO SCH (09:22)
[2018-05-03] MEDS: Loratadine 10 MG Tab PO SCH (09:23)
[2018-05-03] MEDS: Enoxaparin 40 MG/0.4 ML Syringe SUBCUT SCH (09:23)
[2018-05-03] MEDS: Aspirin 81 MG Tab.EC PO SCH (09:23)
[2018-05-03] MEDS: Sertraline 50 MG Tab PO SCH (09:23)
[2018-05-03] MEDS: Allopurinol 300 MG Tab PO SCH (09:23)
[2018-05-03] MEDS: Lisinopril 10 MG Tab PO SCH (09:23)
[2018-05-03] MEDS: Famotidine 20 MG Tab PO SCH (09:23)
[2018-05-03] MEDS: Furosemide 20 MG Tab PO SCH (09:23)
[2018-05-03] MEDS: Azithromycin 250 MG Tab PO SCH (13:10)
--- NOTE | 2018-05-03 15:04 | PCM.DCSUM1 ---
Discharge Summary - Hospital Course HPI Initial Comments: The patient presents with shortness of breath and a cough. This has been going on for over a week. The patient has a history of COPD and CHF. She was admitted earlier in the month but has not felt well. She has no fever but she has chills. She has a productive cough. She has wheezing and shortness of breath. She has been taking her oral meds and treatments. She has no swelling or pain in her legs. She did follow up with her doctor and the testing was good there. She does have some pain to both sides of the ribs from coughing. Diagnosis: Stroke: No Modified Ganesh Scale: No Symptoms at All Modified [place] Scale Score: 0 - Discharge Data Discharge Date: 05/03/18 (ADMIT 04/29/18) Discharge Disposition: Home, Self-Care 01 Condition: Fair - Discharge Diagnosis/Problem(s) (1) Acute bronchitis SNOMED Code(s): 40692769 ICD Code: J20.9 - ACUTE BRONCHITIS, UNSPECIFIED Status: Acute Priority: High Qualifiers: Bronchitis organism: unspecified organism Qualified Code(s): J20.9 - Acute bronchitis, unspecified (2) Acute exacerbation of chronic obstructive pulmonary disease (COPD) SNOMED Code(s): 338850334 ICD Code: J44.1 - CHRONIC OBSTRUCTIVE PULMONARY DISEASE W (ACUTE) EXACERBATION Status: Acute Priority: High (3) (HFpEF) heart failure with preserved ejection fraction SNOMED Code(s): 664806094 ICD Code: I50.30 - UNSPECIFIED DIASTOLIC (CONGESTIVE) HEART FAILURE Status : Chronic Priority: Medium (4) Vaginal irritation SNOMED Code(s): 282472729 ICD Code: N89.8 - OTHER SPECIFIED NONINFLAMMATORY DISORDERS OF VAGINA Status: Chronic Priority: Low - Patient Summary/Data Operative Procedure(s) Performed: none Complications: none Consults: Consultations 04/29/18 18:19 Consult to Case Management/Feed Miller [CONS] Routine OT Evaluation and Treatment [CONS] Routine PT Evaluation and Treatment [CONS] Routine Respiratory Care Assess and Treatment [CONS] Routine Labs Pending at D/C: none Recommended Follow-up Testing/Procedures: F/U with PCP in 7- 10 days. F/U with slabbing machine operator, used car renovator and and drying supervisor cooking casing Recommend Sleep apnea (GERARDO) testing Planned Operative Procedure(s) after DC: none Hospital Course: I/P: Acute: Productive cough w/ Hypoxia * Dyspnea, SOB x 1 week * Differential: Bronchitis vs PNA vs COPD exacerbation * Risk Factors: COPD on O2 at home, HFpEF, Restrictive Airway Dz, h/o asthma, former smoker (quit 4 mo ago), exposure to smoke and sick children at home, 4 dogs and 2 cats at home * CXR 04/29/18 in ED--> nothing acute seen * Influenza negative * R/O PNA: * Mycoplasma, Strep pneumo negative * Sputum culture shows normal maria alejandra * RVP shows ENTEROVIRUS/RHINOVIRUS * RT/Duonebs/IS/Acapella * Repeat CXR : * 1. Mild atelectasis within the lingula. * 2. Nothing acute is otherwise seen on two-view chest x-ray. * PFT 03/29/18: moderate to severe restrictive airway disease * Pulmonary rehab not started yet * F/U with used car renovator after D/C * Pulmicort--> switch to Advair at D/C * Start Claritin * Azithromycin started in ED--> Continue * After D/C recommendations: * Unsure if she has allergies--> recommend allergy testing * GERARDO testing DM2, Uncontrolled * Acute on Chronic * A1C 8.3 * Increased Glucose while here * Risk factor: on Solumedrol * Takes Glipizide, Tresiba, Metformin--> continue * Sliding scale insulin while here * Increase activity level as tolerated * F/U w/ PCP Resolved: Vaginal Irritation * Pt complains of chronic vaginal itchiness w/ discharge * Risk Factors: Antibiotic use, uncontrolled sugars with DM2, uses scented soap and alcohol swabs to clean * Educated on risk factors as well as to stop using scented soap and alcohol swab--> should only be using cold compress or OTC products such as Vagisil * Will get 1 dose of Diflucan while here * Set up Manager Of Tires Sales appt at D/C Chronic: HTN HLD HFpEF--> ECHO 07/30/17: LVEF 55-60%, Grade 1 pattern LV diastolic filling, Mild LVH R eye blindness Asthma COPD Renal calculus Gout Back Pain Migraines Neuropathy Depression Anxiety h/o cholecystectomy h/o hysterectomy Plan: Transferred to Medical Floor on telemetry Droplet precautions Other orders as indicated above Routine AM labs ADA diet PT/OT CM/SW DVT Prophylaxis/GI Prophylaxis Code Status: Full Code; PCP: Lisandra Mazariegos PA-C LOS >96H d/t slow response to treatment. D/C Plan: * Set up Gynecology appt for chronic itching/irritation * F/U with Rustic Fence Builder--> needs pulmonary rehab * Unsure if she has allergies--> recommend allergy testing * GERARDO testing * New Rx for Advair and Claritin * Azithro 250mg x 5 days Prerna did OK here after being admitted for productive cough with hypoxia. This was likely brought on by enterovirus/rhinovirus as she tested positive for that on RVP which likely caused exacerbation of her COPD. However, there seems to be many risk factors for this exacerbation (see above) including possible allergies. A f/u with an slabbing machine operator is therefore recommended to r/o allergies. She was started on Claritin while here and was prescribed it as D/C as well. It is also recommended she f/u with a used car renovator after D/C as she needs pulmonary rehab, as this underlying lung issue seems chronic in nature. GERARDO testing would also be beneficial and is also recommended. She will be sent home with a new rx for Advair and Azithomycin for completion of treatment. She also complained of some vaginal itching while here, and a f/u with and drying supervisor cooking casing is recommended. Pt to f/u with PCP in 7-10 days- recommended setting up sleep study with PCP. - Patient Instructions Diet: Diabetic Diet Activity: As Tolerated Driving: Do Not Drive Showering/Bathing: May Shower Notify Provider of: Fever, Increased Pain, Nausea and/or Vomiting Other/Special Instructions: Return to ED if worsening of symptoms or unable to maintain oxygen greater than 90% - Discharge Plan *PRESCRIPTION DRUG MONITORING PROGRAM REVIEWED*: No *COPY OF PRESCRIPTION DRUG MONITORING REPORT IN PATIENT RUCHI: No Prescriptions/Med Rec: Azithromycin [Zithromax] 250 mg PO DAILY 5 Days #5 tab Fluticasone/Salmeterol [Advair 250-50 Diskus] 1 each IH BID #1 disk.w.dev Loratadine [Claritin] 10 mg PO DAILY 30 Days #30 tab Saccharomyces Boulardii [Florastor] 250 mg PO BID 15 Days #30 cap Home Medications: Home Meds Allopurinol [Zyloprim] 300 mg PO DAILY 04/18/15 [History] Aspirin [Sacha Chewable Aspirin] 81 mg PO DAILY 04/18/15 [History] Lisinopril 10 mg PO DAILY 04/18/15 [History] Lovastatin 10 mg PO BEDTIME 04/18/15 [History] metFORMIN [Glucophage] 1,000 mg PO BIDMEALS 04/18/15 [History] Albuterol/Ipratropium [DuoNeb 3.0-0.5 MG/3 ML] 3 ml NEB Q6H PRN 06/28/17 [ History] Meloxicam [Mobic] 15 mg PO DAILY 06/28/17 [History] Albuterol/Ipratropium [DuoNeb 3.0-0.5 MG/3 ML] 3 ml INH QID 12/25/17 [History] Dextrose [Glucose] 4 gm PO ASDIRECTED PRN #15 tab.chew 12/31/17 [Rx] Insulin Degludec [Tresiba Flextouch U-200] 73 unit SQ DAILY 03/24/18 [History] Furosemide [Lasix] 20 mg PO DAILY 04/29/18 [History] Sertraline [Zoloft] 1 tab PO DAILY 04/29/18 [History] glipiZIDE [Glipizide ER] 10 mg PO BIDMEALS 04/29/18 [History] traZODone HCl [Trazodone HCl] 50 - 100 mg PO BEDTIME 04/29/18 [History] Azithromycin [Zithromax] 250 mg PO DAILY 5 Days #5 tab 05/02/18 [Rx] Fluticasone/Salmeterol [Advair 250-50 Diskus] 1 each IH BID #1 disk.w.dev [Rx] Loratadine [Claritin] 10 mg PO DAILY 30 Days #30 tab 05/02/18 [Rx] Saccharomyces Boulardii [Florastor] 250 mg PO BID 15 Days #30 cap 05/02/18 [Rx] Oxygen Therapy Mode: Nasal Cannula Oxygen Flow Rate (L/min): 2 (at night; has home O2) Maintain SpO2% greater than: 90 Patient Handouts: Viral Conjunctivitis, Adult, Acute Bronchitis, Adult, Easy-to -Read Referrals: Lisandra Mazariegos PA-C [Primary Care Provider] - 05/14/18 11:00 am (Please follow up with Lisandra Mazariegos on at 1100. ) Julianna Perez MD [Ordering Only Provider] - 08/06/18 1:00 pm (Wooden Tank Erector appointment in [place]. A ride with the [employer] has been scheduled for you. The [employer] Bus will call you the day prior to this appointment to verify the ride time. An information packet will be mailed to you. Appointment is at 1:00 pm [employer], 12:00 [facility].) - Discharge Summary/Plan Comment DC Time >30 min.: Yes (40) - General Info Date of Service: 05/03/18 Admission Dx/Problem (Free Text: Admission Diagnosis/Problem Admission Diagnosis/Problem Bronchitis Subjective Update: In to see Prerna. She is sitting up in bed and states she is ready to go home. She is feeling better today. No concerns from nursing. She will be D/C'd home today. Functional Status: Reports: Pain Controlled, Tolerating Diet, Ambulating, Urinating - Review of Systems General: Reports: No Symptoms HEENT: Reports: No Symptoms Pulmonary: Reports: Shortness of Breath, Cough (improving), Sputum Cardiovascular: Reports: No Symptoms Gastrointestinal: Reports: No Symptoms Genitourinary: Reports: No Symptoms Musculoskeletal: Reports: No Symptoms Skin: Reports: No Symptoms Neurological: Reports: No Symptoms Psychiatric: Reports: No Symptoms - Patient Data Vitals - Most Recent: Last Vital Signs Temp 98.1 F 05/03/18 08:12 Pulse 81 05/03/18 09:39 Resp 30 H 05/03/18 08:12 BP 148/89 H 05/03/18 09:23 Pulse Ox 93 L 05/03/18 09:50 Weight - Most Recent: 256 lb I&O - Last 24 hours: Intake & Output 05/03/18 05/03/18 05/03/18 06:59 14:59 22:59 Intake Total 1650 880 Output Total 1575 Balance 75 880 Lab Results - Last 24 hrs: Laboratory Results - last 24 hr 05/02/18 05/02/18 05/03/18 Range/Units 16:24 20:38 05:46 WBC 10.78 H (3.98-10.04) K/mm3 RBC 3.98 (3.98-5.22) M/mm3 Hgb 10.8 L (11.2-15.7) gm/L Hct 34.8 (34.1-44.9) % MCV 87.4 (79.4-94.8) fl MCH 27.1 (25.6-32.2) pg MCHC 31.0 L (32.2-35.5) g/dl RDW Std Deviation 46.6 H (36.4-46.3) fL Plt Count 200 (182-369) K/mm3 MPV 10.3 (9.4-12.3) fl Neut % (Auto) 85.3 H (34.0-71.1) % Lymph % (Auto) 9.2 L (19.3-51.7) % Cecil % (Auto) 4.5 L (4.7-12.5) % Eos % (Auto) 0.1 L (0.7-5.8) Baso % (Auto) 0.0 L (0.1-1.2) % Neut # (Auto) 9.19 H (1.56-6.13) K/mm3 Lymph # (Auto) 0.99 L (1.18-3.74) K/mm3 Cecil # (Auto) 0.49 H (0.24-0.36) K/mm3 Eos # (Auto) 0.01 L (0.04-0.36) K/mm3 Baso # (Auto) 0.00 L (0.01-0.08) K/mm3 Manual Slide Review Abnormal smear Sodium (136-145) mEq/L Potassium (3.5-5.1) mEq/L Chloride (98-107) mEq/L Carbon Dioxide (21-32) mEq/L Anion Gap (5-15) BUN (7-18) mg/dL Creatinine (0.55-1.02) mg/dL Est Cr Clr Drug Dosing mL/min Estimated GFR (MDRD) (>60) mL/min BUN/Creatinine Ratio (14-18) Glucose (80-115) mg/dL POC Glucose 387 H 360 H (80-115) mg/dL Calcium (8.5-10.1) mg/dL Magnesium (1.8-2.4) mg/dl C-Reactive Protein (<1.0) mg/dL 05/03/18 05/03/1805/03/19 Range/Units 05:46 06:03 11:07 WBC (3.98-10.04) K/mm3 RBC (3.98-5.22) M/mm3 Hgb (11.2-15.7) gm/L Hct (34.1-44.9) % MCV (79.4-94.8) fl MCH (25.6-32.2) pg MCHC (32.2-35.5) g/dl RDW Std Deviation (36.4-46.3) fL Plt Count (182-369) K/mm3 MPV (9.4-12.3) fl Neut % (Auto) (34.0-71.1) % Lymph % (Auto) (19.3-51.7) % Cecil % (Auto) (4.7-12.5) % Eos % (Auto) (0.7-5.8) Baso % (Auto) (0.1-1.2) % Neut # (Auto) (1.56-6.13) K/mm3 Lymph # (Auto) (1.18-3.74) K/mm3 Cecil # (Auto) (0.24-0.36) K/mm3 Eos # (Auto) (0.04-0.36) K/mm3 Baso # (Auto) (0.01-0.08) K/mm3 Manual Slide Review Sodium 139 (136-145) mEq/L Potassium 4.2 (3.5-5.1) mEq/L Chloride 101 (98-107) mEq/L Carbon Dioxide 28 (21-32) mEq/L Anion Gap 14.2 (5-15) BUN 49 H (7-18) mg/dL Creatinine 1.2 H (0.55-1.02) mg/dL Est Cr Clr Drug Dosing 38.75 mL/min Estimated GFR (MDRD) 45 (>60) mL/min BUN/Creatinine Ratio 40.8 H (14-18) Glucose 291 H (80-115) mg/dL POC Glucose 329 H 367 H (80-115) mg/dL Calcium 9.2 (8.5-10.1) mg/dL Magnesium 2.3 (1.8-2.4) mg/dl C-Reactive Protein < 0.2 (<1.0) mg/dL Med Orders - Current: Current Medications Acetaminophen (Tylenol) 650 mg PO Q4H PRN PRN Reason: Pain (Mild 1-3)/fever Hydrocodone Bitart/Acetaminophen ([place] 325-5 Mg) 1 tab PO Q4H PRN PRN Reason: Pain (moderate 4-6) Albuterol (Proventil Neb Soln) 2.5 mg NEB Q2H PRN PRN Reason: Shortness Of Breath/wheezing Albuterol/Ipratropium (Duoneb 3.0-0.5 Mg/3 Ml) 3 ml NEB Q4H PRN PRN Reason: Shortness Of Breath/wheezing Last Admin: 05/02/18 13:23 Dose: 3 ml Allopurinol (Zyloprim) 300 mg PO DAILY [facility] Last Admin: 05/03/18 09:23 Dose: 300 mg Aspirin (Halfprin) 81 mg PO DAILY [facility] Last Admin: 05/03/18 09:23 Dose: 81 mg Azithromycin (Zithromax) 500 mg PO DAILY@1400 [facility] Last Admin: 05/03/18 13:10 Dose: 500 mg Bisacodyl (Dulcolax) 5 mg PO DAILY PRN PRN Reason: Constipation Budesonide (Pulmicort) 0.25 mg NEB BIDRT [facility] Last Admin: 05/03/18 06:06 Dose: 0.25 mg Dextrose/Water (Dextrose 50% In Water) 50 ml IVPUSH ASDIRECTED PRN PRN Reason: Hypoglycemia Docusate Sodium (Colace) 100 mg PO BID PRN PRN Reason: Constipation Enoxaparin Sodium (Lovenox) 40 mg SUBCUT DAILY [facility] Last Admin: 05/03/18 09:23 Dose: 40 mg Famotidine (Pepcid) 20 mg PO DAILY [facility] Last Admin: 05/03/18 09:23 Dose: 20 mg Furosemide (Lasix) 20 mg PO DAILY [facility] Last Admin: 05/03/18 09:23 Dose: 20 mg Glipizide (Glucotrol Xl) 10 mg PO BIDMEALS [facility] Last Admin: 05/03/18 06:15 Dose: 10 mg Guaifenesin (Robitussin) 200 mg PO Q4H PRN PRN Reason: COUGH Last Admin: 05/02/18 20:41 Dose: 200 mg Promethazine HCl 6.25 mg/ (Sodium Chloride) 50.25 mls @ 100 mls/hr IV Q6H PRN PRN Reason: Nausea/Vomiting Insulin Human Lispro (Humalog) 0 unit SUBCUT QIDACANDBED [facility]; Protocol Last Admin: 05/03/18 11:09 Dose: 15 units Lisinopril (Prinivil) 10 mg PO DAILY [facility] Last Admin: 05/03/18 09:23 Dose: 10 mg Loratadine (Claritin) 10 mg PO DAILY [facility] Last Admin: 05/03/18 09:23 Dose: 10 mg Magnesium Hydroxide (Milk Of Magnesia) 30 ml PO Q12H PRN PRN Reason: Constipation Metformin HCl (Glucophage) 1,000 mg PO BIDMEALS [facility] Last Admin: 05/03/18 06:15 Dose: 1,000 mg Methylprednisolone Sodium Succinate (Solu-Medrol) 125 mg IVPUSH Q12H [facility] Last Admin: 05/03/18 06:12 Dose: 125 mg Insulin Degludec [ Tresiba Flextouch U- 100] Ptom 0 each SUBCUT BEDTIME [facility] Last Admin: 05/02/18 20:41 Dose: 73 each Polyethylene Glycol (Miralax) 17 gm PO DAILY PRN PRN Reason: Constipation Promethazine HCl (Phenergan) 25 mg PO Q6H PRN PRN Reason: Nausea/Vomiting Saccharomyces Boulardii (Florastor) 250 mg PO BID [facility] Last Admin: 05/03/18 09:22 Dose: 250 mg Senna/Docusate Sodium (Senna Plus) 1 tab PO BID PRN PRN Reason: Constipation Sertraline HCl (Zoloft) 100 mg PO DAILY [facility] Last Admin: 05/03/18 09:23 Dose: 100 mg Simvastatin (Zocor) 5 mg PO BEDTIME [facility] Last Admin: 05/02/18 20:40 Dose: 5 mg Sodium Chloride (Saline Flush) 10 ml FLUSH ASDIRECTED PRN PRN Reason: Keep Vein Open Last Admin: 04/29/18 10:40 Dose: 10 ml Temazepam (Restoril) 7.5 mg PO BEDTIME PRN PRN Reason: Sleep Last Admin: 05/02/18 20:39 Dose: 7.5 mg Vitamin A/Vitamin D (Vitamin A & D) 0 gm TOP Q2H PRN PRN Reason: Agitation Discontinued Medications Acetaminophen (Tylenol) 650 mg PO Q4H PRN PRN Reason: Pain Last Admin: 04/30/18 03:48 Dose: 650 mg Albuterol (Proventil Neb Soln) 2.5 mg NEB ONETIME ONE Stop: 04/29/18 12:48 Last Admin: 04/29/18 12:58 Dose: 2.5 mg Albuterol/Ipratropium (Duoneb 3.0-0.5 Mg/3 Ml) 3 ml NEB ONETIME ONE Stop: 04/29/18 10:27 Last Admin: 04/29/18 11:16 Dose: 3 ml Albuterol/Ipratropium (Duoneb 3.0-0.5 Mg/3 Ml) 3 ml NEB ONETIME ONE Stop: 04/29/18 11:46 Last Admin: 04/29/18 12:01 Dose: 3 ml Famotidine (Pepcid) 20 mg PO BID [facility] Fluconazole (Diflucan) 150 mg PO ONETIME ONE Stop: 05/01/18 16:09 Last Admin: 05/01/18 16:46 Dose: 150 mg Azithromycin 500 mg/ Sodium (Chloride) 250 mls @ 250 mls/hr IV ONETIME ONE Stop: 04/29/18 15:23 Last Admin: 04/29/18 15:09 Dose: 250 mls/hr Azithromycin 500 mg/ Sodium (Chloride) 250 mls @ 250 mls/hr IV Q24H [facility] Stop: 05/01/18 18:00 Last Admin: 05/01/18 14:16 Dose: 250 mls/hr Insulin Human Lispro (Humalog) 0 unit SUBCUT QIDACANDBED [facility]; Protocol Last Admin: 04/30/18 03:24 Dose: Not Given Insulin Human Lispro (Humalog) 12 unit SUBCUT ONETIME ONE Stop: 04/30/18 22:11 Last Admin: 04/29/18 22:18 Dose: 12 units Methylprednisolone Sodium Succinate (Solu-Medrol) 125 mg IVPUSH ONETIME ONE Stop: 04/29/18 10:27 Last Admin: 04/29/18 10:46 Dose: 125 mg Methylprednisolone Sodium Succinate (Solu-Medrol) 125 mg IVPUSH Q8H [facility] Last Admin: 04/30/18 17:34 Dose: 125 mg Methylprednisolone Sodium Succinate (Solu-Medrol) 125 mg IVPUSH Q12H [facility] Morphine Sulfate (Morphine) 2 mg IVPUSH Q2H PRN PRN Reason: Pain (severe 7-10) Stop: 04/30/18 18:16 Non-Formulary Medication (Meloxicam) 15 mg PO DAILY [facility] - Exam Quality Assessment: Reports: DVT Prophylaxis General: Reports: Alert, Oriented, Cooperative, No Acute Distress HEENT: Reports: Pupils Equal, Pupils Reactive, EOMI, Mucous Membr. Moist/[place] Neck: Reports: Supple Lungs: Reports: Normal Respiratory Effort, Decreased Breath Sounds, Wheezing Cardiovascular: Reports: Regular Rate, Regular Rhythm GI/Abdominal Exam: Normal Bowel Sounds, Soft, Non-Tender, No Organomegaly, No Distention, No Abnormal Bruit, No Mass, Pelvis Stable (Female) Exam: Deferred Rectal (Female) Exam: Deferred Back Exam: Reports: Normal Inspection Extremities: Normal Inspection, Normal Range of Motion, Non-Tender, No Pedal Edema, Normal Capillary Refill Skin: Reports: Warm, Dry, Intact Neurological: Reports: No New Focal Deficit Psy/Mental Status: Reports: Alert, Normal Affect, Normal Mood
[2018-05-03 15:58] VITALS: BP 143/55
== END 2018-05-03 16:35 | disposition home or self-care (01) | DRG 191 ==
LOC: JD.ED 09:54 → JD.MS 14:43
PROVIDERS: ADMIT Internal Medicine Cardiovascular Disease; ATTEND Internal Medicine Cardiovascular Disease
DX: J44.1 Chronic obstructive pulmonary disease with (acute) exacerbation (principal); I50.9 Heart failure, unspecified; I50.32 Chronic diastolic (congestive) heart failure; J44.0 Chronic obstructive pulmonary disease with (acute) lower respiratory infection; J20.9 Acute bronchitis, unspecified; E78.5 Hyperlipidemia, unspecified; N20.0 Calculus of kidney; I11.0 Hypertensive heart disease with heart failure; B37.3 Candidiasis of vulva and vagina; E11.65 Type 2 diabetes mellitus with hyperglycemia; E11.40 Type 2 diabetes mellitus with diabetic neuropathy, unspecified; E78.00 Pure hypercholesterolemia, unspecified; H10.32 Unspecified acute conjunctivitis, left eye; G89.29 Other chronic pain; M54.9 Dorsalgia, unspecified; M10.9 Gout, unspecified; F41.9 Anxiety disorder, unspecified; F32.9 Major depressive disorder, single episode, unspecified; G43.909 Migraine, unspecified, not intractable, without status migrainosus; H54.7 Unspecified visual loss; Z79.899 Other long term (current) drug therapy; Z88.1 Allergy status to other antibiotic agents; Z88.8 Allergy status to other drugs, medicaments and biological substances; Z79.82 Long term (current) use of aspirin; Z79.4 Long term (current) use of insulin; Z87.01 Personal history of pneumonia (recurrent); M25.561 Pain in right knee; Z99.81 Dependence on supplemental oxygen; R05 Cough; R06.2 Wheezing; R07.81 Pleurodynia; R07.9 Chest pain, unspecified; R06.02 Shortness of breath; Z87.442 Personal history of urinary calculi; Z79.52 Long term (current) use of systemic steroids; Z90.49 Acquired absence of other specified parts of digestive tract; Z90.710 Acquired absence of both cervix and uterus; Z87.891 Personal history of nicotine dependence
CPT/HCPCS: 36415; 71045; 80053; 85025; 86738; 94640 ×3; 96374; 99285; J2930; 71046; 71046-26; 80048; 80061; 82947; 82962; 83036; 83735; 83880; 86140; 87070; 87205; 87486; 87581; 87632; 87798; 87804; 87899; 94667; 94668; 94760; 94761; 97161-GP; 97165-GO; 99284; A9270-GY; J0456; J1650; J1815; J7050; J7620-GY

== ENCOUNTER 2019-01-16 14:09 | Observation (INO) | payer MEDICARE, MEDICAID ==
[2019-01-16] MEDS ORDERED: Albuterol/Ipratropium 3.0-0.5 MG/3 ML Neb Soln NEB ONE (16:20)
[2019-01-16] MEDS ORDERED: Sodium Chloride 0.9% 10 ML Syringe FLUSH PRN (16:20)
[2019-01-16] MEDS ORDERED: cefTRIAXone 2 GM in Sodium Chloride 0.9% 100 ML IV STA (18:25)
[2019-01-16] MEDS ORDERED: Albuterol 0.083% 2.5 MG/3 ML Neb Soln NEB ONE (18:25)
[2019-01-16] MEDS ORDERED: Acetaminophen 325 MG Tab PO ONE (18:40)
[2019-01-16] MEDS ORDERED: Sodium Chloride 0.9% 1,000 ML IV SCH (18:45)
--- NOTE | 2019-01-16 19:02 | EDM.PDOC ---
ED HPI GENERAL MEDICAL PROBLEM - General Chief Complaint: Respiratory Problem Stated Complaint: SOB, COUGH, VOMITING Time Seen by Provider: 01/16/19 15:15 Source of Information: Reports: Patient History Limitations: Reports: No Limitations - History of Present Illness INITIAL COMMENTS - FREE TEXT/NARRATIVE: 68-year-old male presents for evaluation ad treatment of shortness breath, cough and posttussive emesis. Reports symptoms started last night. She reports current symptoms of a sore throat which she feels like us from coughing, ear pain, diarrhea, headache and a dry nonproductive cough. She reports posttussive emesis. No chest pain. She is also having left-sided flank and back pain. She is seen by myself in the ER on December 14 at home found to have stones in left kidney but no signs of ureteral dilation. Patient reports several family members who are ill. Patient uses oxygen, 2L nasal canula at night. Does not normally use during the day. PCP is Lisandra Mazariegos. Left Back Pain Score (Numeric/FACES): 8 - Related Data Allergies Allergy/AdvReac Type Severity Reaction Status Date / Time insulin detemir Allergy Mild Itching Verified 01/16/19 15:00 [From Levemir] doxycycline Allergy Swelling Verified 01/16/19 15:00 Home Meds: Home Meds Allopurinol [Zyloprim] 300 mg PO DAILY 04/18/15 [History] Aspirin [Sacha Chewable Aspirin] 81 mg PO DAILY 04/18/15 [History] Lisinopril 10 mg PO DAILY 04/18/15 [History] Lovastatin 10 mg PO BEDTIME 04/18/15 [History] metFORMIN [Glucophage] 1,000 mg PO BIDMEALS 04/18/15 [History] Albuterol/Ipratropium [DuoNeb 3.0-0.5 MG/3 ML] 3 ml NEB Q6H PRN 06/28/17 [ History] Meloxicam [Mobic] 15 mg PO DAILY 06/28/17 [History] Insulin Degludec [Tresiba Flextouch U-200] 73 unit SQ DAILY 03/24/18 [History] Sertraline [Zoloft] 100 tab PO DAILY 04/29/18 [History] glipiZIDE [Glipizide ER] 10 mg PO BIDMEALS 04/29/18 [History] Fluticasone/Salmeterol [Advair 250-50 Diskus] 1 each IH BID #1 disk.w.dev [Rx] buPROPion [buPROPion XL] 150 mg PO DAILY 01/17/19 [History] Past Medical History HEENT History: Reports: Impaired Vision, Retinal Detachment 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 [employer] History: Reports: Musculoskeletal History: Reports: Back Pain, Chronic, Gout, Other (See Below) Other Musculoskeletal History: Right knee pain Neurological History: Reports: Migraines, Neuropathy, Diabetic Psychiatric History: Reports: Anxiety, Depression Endocrine/Metabolic History: Reports: Diabetes, Type II Hematologic History: Reports: None Immunologic History: Reports: None Oncologic (Cancer) History: Reports: None Dermatologic History: Reports: None - Infectious Disease History Infectious Disease History: Reports: Chicken Pox, Measles, Mumps - Past Surgical History HEENT Surgical History: Reports: Eye Surgery, Other (See Below) Other HEENT Surgeries/Procedures: retinal detachment surgery x2. Cardiovascular Surgical History: Reports: None Respiratory Surgical History: Reports: None GI Surgical History: Reports: Appendectomy, Cholecystectomy Female Surgical History: Reports: Hysterectomy, Lithotripsy/ESWL Endocrine Surgical History: Reports: None Neurological Surgical History: Reports: None Musculoskeletal Surgical History: Reports: Other (See Below) Other Musculoskeletal Surgeries/Procedures:: knee sx bilaterally Oncologic Surgical History: Reports: None Dermatological Surgical History: Reports: None Social & Family History - Family History Family Medical History: Noncontributory - Tobacco Use Smoking Status *Q: Current Some Day Smoker Years of Tobacco use: 40 Packs/Tins Daily: 0.2 - Caffeine Use Caffeine Use: Reports: None Other Caffeine Use: diet pepsi - Recreational Drug Use Recreational Drug Use: No - Living Situation & Occupation Living situation: Reports: Single Occupation: Retired ED ROS GENERAL - Review of Systems Review Of Systems: See Below HEENT: Reports: Ear Pain, Throat Pain Respiratory: Reports: Shortness of Breath, Cough Cardiovascular: Denies: Chest Pain GI/Abdominal: Reports: Diarrhea, Vomiting (post tussive) : Reports: Flank Pain (left) Musculoskeletal: Reports: Back Pain (left lower back) Neurological: Reports: Headache ED EXAM, GENERAL - Physical Exam Exam: See Below Exam Limited By: No Limitations General Appearance: Alert, WD/WN, Mild Distress, Obese Eye Exam: Bilateral Eye: Other (right pupil smaller in size approximately 3 mm, left is approximately 7mm; patient reports this is chronic) Ears: Normal External Exam, Normal Canal, Hearing Grossly Normal, Normal TMs Nose: Normal Inspection Throat/Mouth: Normal Inspection, Normal Lips, Normal Voice, No Airway Compromise Respiratory/Chest: Decreased Breath Sounds, Other (Tachypnea) Cardiovascular: Normal Peripheral Pulses, No Murmur, Tachycardia GI/Abdominal: Soft, Non-Tender Neurological: Alert, Oriented, Normal Cognition Psychiatric: Normal Affect, Normal Mood Skin Exam: Warm, Dry, Normal Color EKG INTERPRETATION EKG Date: 01/16/19 Time: 19:07 Rhythm: NSR Rate (Beats/Min): 108 [place]: Normal P-Wave: Present QRS: Normal ST-T: Normal QT: Normal EKG Interpretation Comments: Sinus tachycardia 108 bpm. Initial poor R-wave progression V1 and V2. Borderline first AV block. Decreased voltage in limb and percordial leads. Reviewed by myself and Dr. Chauhan. Course - Vital Signs Last Recorded V/S: Last Vital Signs Temp 99.3 F 01/17/19 14:35 Pulse 81 01/17/19 14:35 Resp 18 01/17/19 14:35 BP 129/60 01/17/19 14:35 Pulse Ox 90 L 01/17/19 14:36 - Orders/Labs/Meds Orders: Active Orders 24 hr Category Date Time Status CULTURE BLOOD [BC] Stat Lab 01/16/19 17:10 Results CULTURE BLOOD [BC] Stat Lab 01/16/19 17:20 Received CULTURE URINE [RM] Stat Lab 01/16/19 16:25 Results Sodium Chloride 0.9% [Saline Flush] Med 01/16/19 16:20 Active 10 ml FLUSH ASDIRECTED PRN Blood Culture x2 Reflex Set [OM.PC] Stat Oth 01/16/19 16:21 Ordered Peripheral IV Insertion Adult [OM.PC] Routine Oth 01/16/19 16:20 Ordered Medication Orders Acetaminophen (Tylenol) 650 mg PO Q4H PRN PRN Reason: Pain (Mild 1-3)/fever Last Admin: 01/17/19 04:51 Dose: 650 mg Albuterol/Ipratropium (Duoneb 3.0-0.5 Mg/3 Ml) 3 ml NEB Q4H PRN PRN Reason: Shortness Of Breath/wheezing Last Admin: 01/17/19 06:01 Dose: 3 ml Allopurinol (Zyloprim) 300 mg PO DAILY [facility] Last Admin: 01/17/19 08:01 Dose: 300 mg Aspirin (Halfprin) 81 mg PO DAILY [facility] Last Admin: 01/17/19 08:01 Dose: 81 mg Benzonatate (Tessalon Perles) 100 mg PO BID [facility] Last Admin: 01/17/19 08:01 Dose: 100 mg Bisacodyl (Dulcolax) 5 mg PO DAILY PRN PRN Reason: Constipation Bupropion HCl (Wellbutrin Xl) 150 mg PO DAILY [facility] Last Admin: 01/17/19 11:45 Dose: 150 mg Dextrose/Water (Dextrose 50% In Water) 50 ml IVPUSH ASDIRECTED PRN PRN Reason: Hypoglycemia Docusate Sodium (Colace) 100 mg PO BID PRN PRN Reason: Constipation Glipizide (Glucotrol Xl) 10 mg PO BIDINALS [facility] Last Admin: 01/17/19 07:22 Dose: 10 mg Admin: 01/16/19 22:17 Dose: 10 mg Guaifenesin/Phenylephrine HCl (Robitussin Dm) 10 ml PO Q4H PRN PRN Reason: Cough Hydromorphone HCl (Dilaudid) 0.25 mg IVPUSH Q2H PRN PRN Reason: Pain (severe 7-10) Last Admin: 01/16/19 22:20 Dose: 0.25 mg Promethazine HCl 6.25 mg/ (Sodium Chloride) 50.25 mls @ 100 mls/hr IV Q6H PRN PRN Reason: Nausea/Vomiting Insulin Human Lispro (Humalog) 0 unit SUBCUT QIDACANDBED [facility]; Protocol Last Admin: 01/17/19 11:45 Dose: 4 units Admin: 01/17/19 08:01 Dose: 6 units Admin: 01/16/19 22:44 Dose: 2 units Methylprednisolone Sodium Succinate (Solu-Medrol) 40 mg IVPUSH Q6H [facility] Last Admin: 01/17/19 15:12 Dose: 40 mg Admin: 01/17/19 11:45 Dose: 40 mg Admin: 01/17/19 04:52 Dose: 40 mg Admin: 01/16/19 22:18 Dose: 40 mg Miscellaneous Information (Remove Patch) 1 ea TRDERM ONETIME ONE Stop: 01/19/19 21:01 Miscellaneous Information (Remove Patch) 1 ea TRDERM DAILY [facility] Mometasone Furoate/Formoterol Fumar (Dulera 200-5 Mcg) 2 puff IH BIDRT [facility] Last Admin: 01/17/19 06:00 Dose: 2 puff Nicotine (Habitrol) 21 mg TRDERM DAILY [facility] Last Admin: 01/17/19 08:01 Dose: 21 mg Ondansetron HCl (Zofran) 4 mg IV Q6H PRN PRN Reason: Nausea/Vomiting Oxymetazoline HCl (Nasal Decongestant Gering) 0 ml DEE Q12HR PRN PRN Reason: Congestion Last Admin: 01/16/19 22:44 Dose: 1 spray Pantoprazole Sodium (Protonix) 40 mg PO Q12HR [facility] Tresiba Flextouch U- (200 Ptom) 0 each SUBCUT DAILY [facility] Last Admin: 01/17/19 10:19 Dose: Lovastatin 10 Mg (Ptom) 0 each PO BEDTIME [facility] Meloxicam 15 Mg (Ptom) 0 each PO DAILY [facility] Last Admin: 01/17/19 08:07 Dose: Polyethylene Glycol (Miralax) 17 gm PO DAILY PRN PRN Reason: Constipation Senna/Docusate Sodium (Senna Plus) 1 tab PO BID PRN PRN Reason: Constipation Sertraline HCl (Zoloft) 100 mg PO DAILY [facility] Last Admin: 01/17/19 08:01 Dose: 100 mg Sodium Chloride (Saline Flush) 10 ml FLUSH ASDIRECTED PRN PRN Reason: Keep Vein Open Labs: Laboratory Tests 01/16/19 01/16/19 01/16/19 Range/Units 15:25 15:25 15:25 WBC 17.66 H (3.98-10.04) K/mm3 RBC 4.14 (3.98-5.22) M/mm3 Hgb 11.1 L (11.2-15.7) gm/dl Hct 36.3 (34.1-44.9) % MCV 87.7 (79.4-94.8) fl MCH 26.8 (25.6-32.2) pg MCHC 30.6 L (32.2-35.5) g/dl RDW Std Deviation 48.7 H (36.4-46.3) fL Plt Count 286 (182-369) K/mm3 MPV 9.6 (9.4-12.3) fl Neut % (Auto) 77.5 H (34.0-71.1) % Lymph % (Auto) 13.3 L (19.3-51.7) % [place] % (Auto) 6.3 (4.7-12.5) % Eos % (Auto) 2.5 (0.7-5.8) Baso % (Auto) 0.2 (0.1-1.2) % Neut # (Auto) 13.69 H (1.56-6.13) K/mm3 Lymph # (Auto) 2.34 (1.18-3.74) K/mm3 [place] # (Auto) 1.11 H (0.24-0.36) K/mm3 Eos # (Auto) 0.45 H (0.04-0.36) K/mm3 Baso # (Auto) 0.03 (0.01-0.08) K/mm3 Sodium 141 (136-145) mEq/L Potassium 4.8 (3.5-5.1) mEq/L Chloride 107 (98-107) mEq/L Carbon Dioxide 24 (21-32) mEq/L Anion Gap 14.8 (5-15) BUN 27 H (7-18) mg/dL Creatinine 1.1 H (0.55-1.02) mg/dL Est Cr Clr Drug Dosing 42.27 mL/min Estimated GFR (MDRD) 49 (>60) mL/min BUN/Creatinine Ratio 24.5 H (14-18) Glucose 82 (80-115) mg/dL Lactic Acid (0.4-2.0) mmol/L Calcium 9.2 (8.5-10.1) mg/dL Magnesium 1.6 L (1.8-2.4) mg/dl Total Bilirubin 0.2 (0.2-1.0) mg/dL AST 18 (15-37) U/L ALT 28 (14-59) U/L Alkaline Phosphatase 76 (46-116) U/L C-Reactive Protein 1.8 H* (<1.0) mg/dL Total Protein 7.2 (6.4-8.2) g/dl Albumin 3.6 (3.4-5.0) g/dl Globulin 3.6 gm/dL Albumin/Globulin Ratio 1.0 (1-2) Urine Color (Yellow) Urine Appearance (Clear) Urine pH (5.0-8.0) Ur Specific [place] (1.005-1.030) Urine Protein (Negative) Urine Glucose (UA) (Negative) Urine Ketones (Negative) Urine Occult Blood (Negative) Urine Nitrite (Negative) Urine Bilirubin (Negative) Urine Urobilinogen (0.2-1.0) Ur Leukocyte Esterase (Negative) Urine RBC (0-5) /hpf Urine WBC (0-5) /hpf Ur Epithelial Cells (0-5) /hpf Amorphous Sediment (NOT SEEN) /hpf Urine Bacteria (FEW) /hpf Urine Mucus (FEW) /hpf Mycoplasma pneumon IgM Negative (NEGATIVE) 01/16/19 01/16/19 Range/Units 16:25 17:10 WBC (3.98-10.04) K/mm3 RBC (3.98-5.22) M/mm3 Hgb (11.2-15.7) gm/dl Hct (34.1-44.9) % MCV (79.4-94.8) fl MCH (25.6-32.2) pg MCHC (32.2-35.5) g/dl RDW Std Deviation (36.4-46.3) fL Plt Count (182-369) K/mm3 MPV (9.4-12.3) fl Neut % (Auto) (34.0-71.1) % Lymph % (Auto) (19.3-51.7) % [place] % (Auto) (4.7-12.5) % Eos % (Auto) (0.7-5.8) Baso % (Auto) (0.1-1.2) % Neut # (Auto) (1.56-6.13) K/mm3 Lymph # (Auto) (1.18-3.74) K/mm3 [place] # (Auto) (0.24-0.36) K/mm3 Eos # (Auto) (0.04-0.36) K/mm3 Baso # (Auto) (0.01-0.08) K/mm3 Sodium (136-145) mEq/L Potassium (3.5-5.1) mEq/L Chloride (98-107) mEq/L Carbon Dioxide (21-32) mEq/L Anion Gap (5-15) BUN (7-18) mg/dL Creatinine (0.55-1.02) mg/dL Est Cr Clr Drug Dosing mL/min Estimated GFR (MDRD) (>60) mL/min BUN/Creatinine Ratio (14-18) Glucose (80-115) mg/dL Lactic Acid 1.8 (0.4-2.0) mmol/L Calcium (8.5-10.1) mg/dL Magnesium (1.8-2.4) mg/dl Total Bilirubin (0.2-1.0) mg/dL AST (15-37) U/L ALT (14-59) U/L Alkaline Phosphatase (46-116) U/L C-Reactive Protein (<1.0) mg/dL Total Protein (6.4-8.2) g/dl Albumin (3.4-5.0) g/dl Globulin gm/dL Albumin/Globulin Ratio (1-2) Urine Color Light yellow (Yellow) Urine Appearance Clear (Clear) Urine pH 5.5 (5.0-8.0) Ur Specific [place] 1.020 (1.005-1.030) Urine Protein Negative (Negative) Urine Glucose (UA) Negative (Negative) Urine Ketones Negative (Negative) Urine Occult Blood 2+ H (Negative) Urine Nitrite Negative (Negative) Urine Bilirubin Negative (Negative) Urine Urobilinogen 0.2 (0.2-1.0) Ur Leukocyte Esterase Negative (Negative) Urine RBC 10-20 H (0-5) /hpf Urine WBC 0-5 (0-5) /hpf Ur Epithelial Cells 0-5 (0-5) /hpf Amorphous Sediment Few H (NOT SEEN) /hpf Urine Bacteria Few (FEW) /hpf Urine Mucus Not seen (FEW) /hpf Mycoplasma pneumon IgM (NEGATIVE) Meds: Medications Generic Name Dose Route Start Last Admin Trade Name Freq PRN Reason Stop Dose Admin Acetaminophen 650 mg 01/16/19 21:06 01/17/19 04:51 Tylenol PO 650 mg Q4H PRN Administration Pain (Mild 1-3)/fever Albuterol/Ipratropium 3 ml 01/16/19 21:06 01/17/19 06:01 Duoneb 3.0-0.5 Mg/3 Ml NEB 3 ml Q4H PRN Administration Shortness Of Breath/wheezing Allopurinol 300 mg 01/17/19 09:00 01/17/19 08:01 Zyloprim PO 300 mg DAILY [facility] Administration Aspirin 81 mg 01/17/19 09:00 01/17/19 08:01 Halfprin PO 81 mg DAILY [facility] Administration Benzonatate 100 mg 01/17/19 09:00 01/17/19 08:01 Tessalon Perles PO 100 mg BID [facility] Administration Bisacodyl 5 mg 01/16/19 21:06 Dulcolax PO DAILY PRN Constipation Bupropion HCl 150 mg 01/17/19 09:00 01/17/19 11:45 Wellbutrin Xl PO 150 mg DAILY [facility] Administration Dextrose/Water 50 ml 01/16/19 21:10 Dextrose 50% In Water IVPUSH ASDIRECTED PRN Hypoglycemia Docusate Sodium 100 mg 01/16/19 21:06 Colace PO BID PRN Constipation Glipizide 10 mg 01/16/19 22:00 01/17/19 07:22 Glucotrol Xl PO 10 mg BIDMEALS [facility] Administration Guaifenesin/Phenylephrine HCl 10 ml 01/16/19 21:12 Robitussin Dm PO Q4H PRN Cough Hydromorphone HCl 0.25 mg 01/16/19 21:06 01/16/19 22:20 Dilaudid IVPUSH 0.25 mg Q2H PRN Administration Pain (severe 7-10) Promethazine HCl 6.25 mg/ 50.25 mls @ 100 mls/hr 01/16/19 21:06 Sodium Chloride IV Q6H PRN Nausea/Vomiting Insulin Human Lispro 0 unit 01/16/19 22:00 01/17/19 11:45 Humalog SUBCUT 4 units QIDACANDBED [facility] Administration Protocol Methylprednisolone Sodium Succinate 40 mg 01/16/19 22:00 01/17/19 15:12 Solu-Medrol IVPUSH 40 mg Q6H [facility] Administration Miscellaneous Information 1 ea 01/19/19 21:00 Remove Patch TRDERM 01/19/19 21:01 ONETIME ONE Miscellaneous Information 1 ea 01/18/19 09:00 Remove Patch TRDERM DAILY [facility] Mometasone Furoate/Formoterol Fumar 2 puff 01/17/19 06:00 01/17/19 06:00 Dulera 200-5 Mcg IH 2 puff BIDRT [facility] Administration Nicotine 21 mg 01/17/19 09:00 01/17/19 08:01 Habitrol TRDERM 21 mg DAILY [facility] Administration Ondansetron HCl 4 mg 01/16/19 21:06 Zofran IV Q6H PRN Nausea/Vomiting Oxymetazoline HCl 0 ml 01/16/19 21:11 01/16/19 22:44 Nasal Decongestant Gering DEE 1 spray Q12HR PRN Administration Congestion Pantoprazole Sodium 40 mg 01/17/19 21:00 Protonix PO Q12HR [facility] Tresiba Flextouch U- 0 each 01/17/19 09:00 01/17/19 10:19 200 Ptom SUBCUT Not Given DAILY [facility] Lovastatin 10 Mg 0 each 01/17/19 21:00 Ptom PO BEDTIME [facility] Meloxicam 15 Mg 0 each 01/17/19 09:00 01/17/19 08:07 Ptom PO Not Given DAILY [facility] Polyethylene Glycol 17 gm 01/16/19 21:06 Miralax PO DAILY PRN Constipation Senna/Docusate Sodium 1 tab 01/16/19 21:06 Senna Plus PO BID PRN Constipation Sertraline HCl 100 mg 01/17/19 09:00 01/17/19 08:01 Zoloft PO 100 mg DAILY [facility] Administration Sodium Chloride 10 ml 01/16/19 16:20 Saline Flush FLUSH ASDIRECTED PRN Keep Vein Open Discontinued Medications Generic Name Dose Route Start Last Admin Trade Name Freq PRN Reason Stop Dose Admin Acetaminophen 650 mg 01/16/19 18:40 01/16/19 19:05 Tylenol PO 01/16/19 18:41 650 mg NOW ONE Administration Albuterol 2.5 mg 01/16/19 18:25 01/16/19 20:04 Proventil Neb Soln NEB 01/16/19 18:26 2.5 mg ONETIME ONE Administration Albuterol/Ipratropium 3 ml 01/16/19 16:20 01/16/19 16:28 Duoneb 3.0-0.5 Mg/3 Ml NEB 01/16/19 16:21 3 ml ONETIME ONE Administration Benzonatate 100 mg 01/16/19 21:12 01/16/19 22:17 Tessalon Perles PO 01/16/19 21:13 100 mg ONETIME ONE Administration Ceftriaxone Sodium 2 gm/ 100 mls @ 200 mls/hr 01/16/19 18:25 01/16/19 19:56 Sodium Chloride IV 01/16/19 18:54 200 mls/hr NOW STA Administration Sodium Chloride 1,000 mls @ 100 mls/hr 01/16/19 18:45 01/16/19 19:55 Normal Saline IV 100 mls/hr ASDIRECTED [facility] Administration Magnesium Sulfate 2 gm/ Premix 50 mls @ 25 mls/hr 01/17/19 13:42 01/17/19 15: 12 IV 01/17/19 15:41 25 mls/hr ONETIME ONE Administration Non-Formulary Medication 3 ml 01/17/19 09:00 Albuterol/Ipratropium [Duoneb 3.0-0.5 Mg/3 Ml] INH QID [facility] Non-Formulary Medication 150 mg 01/18/19 09:00 Bupropion [Bupropion Xl] PO DAILY [facility] Pantoprazole Sodium 40 mg 01/17/19 09:00 01/17/19 08:02 Protonix Iv IV 40 mg Q12HR [facility] Administration Scopolamine 1.5 mg 01/16/19 21:12 01/16/19 22:16 Transderm-Scop TRDERM 01/16/19 21:13 1.5 mg Q72H ONE Administration - Radiology Interpretation Free Text/Narrative:: 1 view chest xray shows no acute pneumonia. formal radiology read pending. - Re-Assessments/Exams Free Text/Narrative Re-Assessment/Exam: 01/16/19 20:15 I reviewed the patient's labs and chest x-ray with her. Her influenza is negative. Oxygen sats have been 88-92 on room air. She feels that she is too ill to go home and try to manage her symptoms as an outpatient and she feels she needs to be hospitalized. I did discuss the case with Dr. Bob we will admit her for observation. Departure - Departure Time of Disposition: 20:20 Disposition: Refer to Observation Condition: Fair Clinical Impression: Hypoxia Acute bronchitis Qualifiers: Bronchitis organism: unspecified organism Qualified Code(s): J20.9 - Acute bronchitis, unspecified - Discharge Information *PRESCRIPTION DRUG MONITORING PROGRAM REVIEWED*: No *COPY OF PRESCRIPTION DRUG MONITORING REPORT IN PATIENT RUCHI: No - My Orders Last 24 Hours: My Active Orders 01/16/19 16:20 Sodium Chloride 0.9% [Saline Flush] 10 ml FLUSH ASDIRECTED PRN Peripheral IV Insertion Adult [OM.PC] Routine 01/16/19 16:21 Blood Culture x2 Reflex Set [OM.PC] Stat 01/16/19 16:25 CULTURE URINE [RM] Stat 01/16/19 17:10 CULTURE BLOOD [BC] Stat 01/16/19 17:20 CULTURE BLOOD [BC] Stat - Assessment/Plan Last 24 Hours: My Active Orders 01/16/19 16:20 Sodium Chloride 0.9% [Saline Flush] 10 ml FLUSH ASDIRECTED PRN Peripheral IV Insertion Adult [OM.PC] Routine 01/16/19 16:21 Blood Culture x2 Reflex Set [OM.PC] Stat 01/16/19 16:25 CULTURE URINE [RM] Stat 01/16/19 17:10 CULTURE BLOOD [BC] Stat 01/16/19 17:20 CULTURE BLOOD [BC] Stat
--- NOTE | 2019-01-16 19:57 | PCM.SN ---
- Free Text/Narrative Note: 1943 in room 2 for IV start #[id number]. left fore arm good blood return good flush secured dressed out room at 1953
[2019-01-16] MEDS ORDERED: Ondansetron 4 MG/2 ML SDV IV PRN (21:06)
[2019-01-16] MEDS ORDERED: Polyethylene Glycol 3350 Powder 17 GM Packet PO PRN (21:06)
[2019-01-16] MEDS ORDERED: Promethazine 6.25 MG in Sodium Chloride 0.9% 50 ML IV PRN (21:06)
[2019-01-16] MEDS ORDERED: Bisacodyl 5 MG Tab PO PRN (21:06)
[2019-01-16] MEDS ORDERED: Docusate Sodium 100 MG Cap PO PRN (21:06)
[2019-01-16] MEDS ORDERED: 50% Dextrose in Water 50 ML Syringe IVPUSH PRN (21:10)
[2019-01-16] MEDS ORDERED: Oxymetazoline 0.05% Nasal Spray 30 ML Bottle NAS PRN (21:11)
[2019-01-16] MEDS ORDERED: Scopolamine 1.5 MG Transdermal Patch TRDERM ONE (21:12)
[2019-01-16] MEDS ORDERED: Benzonatate 100 MG Cap PO ONE (21:12)
[2019-01-16] MEDS ORDERED: guaiFENesin/Dextromethorphan 100-10 MG/5 ML Soln 5 ML Cup PO PRN (21:12)
--- NOTE | 2019-01-16 21:22 | PCM.SN ---
- Free Text/Narrative Note: Patient seen and examined at beside for shortness of breath associated with sore throat and post-tussive emesis. She is still an active smoker. Her has cigarette was this morning.
[2019-01-16] MEDS: glipiZIDE 5 MG Tab.ER PO SCH (22:17)
[2019-01-16] MEDS: methylPREDNISolone Sodium Succinate 40 MG/1 ML SDV IVPUSH SCH (22:18)
[2019-01-16] MEDS: HYDROmorphone 0.5 MG/0.5 ML Syringe IVPUSH PRN (22:20)
[2019-01-16] MEDS: Insulin Lispro 100 Units/ML 3 ML Vial SUBCUT SCH (22:44)
[2019-01-17] MEDS: Acetaminophen 325 MG Tab PO PRN ×2 (04:51→17:11)
[2019-01-17] MEDS: methylPREDNISolone Sodium Succinate 40 MG/1 ML SDV IVPUSH SCH ×4 (04:52→21:38)
[2019-01-17] MEDS: Formoterol/Mometasone 200-5 MCG 8.8 GM Inhaler IH SCH ×2 (06:00→20:27)
[2019-01-17] MEDS: Albuterol/Ipratropium 3.0-0.5 MG/3 ML Neb Soln NEB PRN ×2 (06:01→16:49)
[2019-01-17] MEDS: glipiZIDE 5 MG Tab.ER PO SCH ×2 (07:22→17:10)
[2019-01-17] MEDS: Nicotine 21 MG/24 Hr Patch TRDERM SCH (08:01)
[2019-01-17] MEDS: Insulin Lispro 100 Units/ML 3 ML Vial SUBCUT SCH ×4 (08:01→21:38)
[2019-01-17] MEDS: Allopurinol 300 MG Tab PO SCH (08:01)
[2019-01-17] MEDS: Sertraline 50 MG Tab PO SCH (08:01)
[2019-01-17] MEDS: Aspirin 81 MG Tab.EC PO SCH (08:01)
[2019-01-17] MEDS: MELOXICAM 15 MG PO SCH (08:07)
[2019-01-17] MEDS ORDERED: Benzonatate 100 MG Cap PO SCH (09:00)
[2019-01-17] MEDS ORDERED: SALMETEROL IH SCH (09:00)
[2019-01-17] MEDS ORDERED: Pantoprazole 40 MG Vial IV SCH (09:00)
[2019-01-17] MEDS ORDERED: TRESIBA U SUBCUT SCH (09:00)
[2019-01-17] MEDS ORDERED: FLUTICASONE IH SCH (09:00)
[2019-01-17] MEDS: buPROPion 150 MG Tab.ER PO SCH (11:45)
--- NOTE | 2019-01-17 13:14 | PCM.HP.2 ---
<Carlos Dacosta - Last Filed: 01/17/19 13:41> H&P History of Present Illness - General Date of Service: 01/17/19 Admit Problem/Dx: Admission Diagnosis/Problem Admission Diagnosis/Problem Bronchitis Source of Information: Patient History Limitations: Reports: No Limitations - History of Present Illness Initial Comments - Free Text/Narative: Patient is a 68 year old female with past medical history positive for tobacco use, COPD and nephrolithiasis who presented to the ED for evaluation of a 2 day history shortness of breath, cough and posttussive emesis. The patient has had "cold" like symptoms for approximately a month, which include fevers and congesion. 2 days ago she began to feel worse. She described her breathing as "heavy", had worsening productive cough with yellow sputum, fatigue and nausea. She states that her throat is sore secondary to coughing, and she also has associated nasal congestion. Laying down worsens her symptoms. She has had no recent travel but does report that "everyone in her family is sick." She also complains of dull pain while urinating and difficulty urinating. She also reports increased frequency and urgency. She was evaluated in the ED on and found to have stones in the left kidney without signs of ureteral dilation. She does state that she has an upcoming appointment for her kidney stones. In the ED the patient underwent Chest Xray, CBC and CMP, UA and EKG. Chest Xray demonstrated no acute pneumonia. EKG demonstrated sinus tachycardia with borderline AV block. Patient was afebrile in the ED, and had a WBC count of 17.66, Hgb of 11.1, platelets of 286, eGFR of 45, Creatinine of 1.1, CRP of 1.8. Patient was mycoplasma and influenza negative. Patient was admitted to observation. Left Back Pain Score (Numeric/FACES): 7 - Related Data Allergies/Adverse Reactions: Allergies Allergy/AdvReac Type Severity Reaction Status Date / Time insulin detemir Allergy Mild Itching Verified 01/16/19 15:00 [From Levemir] doxycycline Allergy Swelling Verified 01/16/19 15:00 Home Medications: Home Meds Allopurinol [Zyloprim] 300 mg PO DAILY 04/18/15 [History] Aspirin [Sacha Chewable Aspirin] 81 mg PO DAILY 04/18/15 [History] Lisinopril 10 mg PO DAILY 04/18/15 [History] Lovastatin 10 mg PO BEDTIME 04/18/15 [History] metFORMIN [Glucophage] 1,000 mg PO BIDMEALS 04/18/15 [History] Albuterol/Ipratropium [DuoNeb 3.0-0.5 MG/3 ML] 3 ml NEB Q6H PRN 06/28/17 [ History] Meloxicam [Mobic] 15 mg PO DAILY 06/28/17 [History] Insulin Degludec [Tresiba Flextouch U-200] 73 unit SQ DAILY 03/24/18 [History] Sertraline [Zoloft] 100 tab PO DAILY 04/29/18 [History] glipiZIDE [Glipizide ER] 10 mg PO BIDMEALS 04/29/18 [History] Fluticasone/Salmeterol [Advair 250-50 Diskus] 1 each IH BID #1 disk.w.dev [Rx] buPROPion [buPROPion XL] 150 mg PO DAILY 01/17/19 [History] Past Medical History HEENT History: Reports: Impaired Vision, Retinal Detachment 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 HOME HEALTH MANAGER History: Reports: Musculoskeletal History: Reports: Back Pain, Chronic, Gout, Other (See Below) Other Musculoskeletal History: Right knee pain Neurological History: Reports: Migraines, Neuropathy, Diabetic Psychiatric History: Reports: Anxiety, Depression Endocrine/Metabolic History: Reports: Diabetes, Type II Hematologic History: Reports: None Immunologic History: Reports: None Oncologic (Cancer) History: Reports: None Dermatologic History: Reports: None - Infectious Disease History Infectious Disease History: Reports: Chicken Pox, Measles, Mumps - Past Surgical History HEENT Surgical History: Reports: Eye Surgery, Other (See Below) Other HEENT Surgeries/Procedures: retinal detachment surgery x2. Cardiovascular Surgical History: Reports: None Respiratory Surgical History: Reports: None GI Surgical History: Reports: Appendectomy, Cholecystectomy Female Surgical History: Reports: Hysterectomy, Lithotripsy/ESWL Endocrine Surgical History: Reports: None Neurological Surgical History: Reports: None Musculoskeletal Surgical History: Reports: Other (See Below) Other Musculoskeletal Surgeries/Procedures:: knee sx bilaterally Oncologic Surgical History: Reports: None Dermatological Surgical History: Reports: None Social & Family History - Family History Family Medical History: Noncontributory - Tobacco Use Smoking Status *Q: Current Some Day Smoker Years of Tobacco use: 40 Packs/Tins Daily: 0.2 Used Tobacco, but Quit: No Second Hand Smoke Exposure: Yes - Tobacco Core Measures Tobacco Use/Smoking Within Last 30 Days: Yes - Caffeine Use Caffeine Use: Reports: None Other Caffeine Use: diet pepsi - Alcohol Use Alcohol Use History: No - Recreational Drug Use Recreational Drug Use: No - Living Situation & Occupation Living situation: Reports: Single, with Family Occupation: Retired H&P Review of Systems - Review of Systems: Review Of Systems: See Below General: Reports: Fever, Fatigue, Weight Loss HEENT: Reports: Rhinitis, Sore Throat Pulmonary: Reports: Shortness of Breath, Wheezing, Cough, Sputum Cardiovascular: Reports: No Symptoms Gastrointestinal: Reports: Diarrhea (For one week ). Denies: Bloody Stool, Constipation Genitourinary: Reports: Dysuria, Frequency, Pain, Urgency Musculoskeletal: Reports: No Symptoms Skin: Reports: Dryness Psychiatric: Reports: No Symptoms Neurological: Reports: No Symptoms Hematologic/Lymphatic: Reports: No Symptoms Immunologic: Reports: No Symptoms Exam - Exam Exam: See Below - Vital Signs Vital Signs: Last Vital Signs Temp 98.4 F 01/17/19 11:33 Pulse 91 01/17/19 11:33 Resp 22 H 01/17/19 11:33 BP 131/68 01/17/19 11:33 Pulse Ox 95 01/17/19 11:33 Weight: 112.582 kg - Exam General: Alert, Oriented, 4 HEENT: Conjunctiva Clear, Hearing Intact, Mucosa Moist & [place], Nares Patent, Pupils Equal Neck: Supple, Trachea Midline Lungs: Clear to Auscultation, Normal Respiratory Effort Cardiovascular: Regular Rate, Regular Rhythm GI/Abdominal Exam: Normal Bowel Sounds, Soft, Non-Tender, No Organomegaly, No Distention, No Abnormal Bruit Back Exam: Normal Inspection Extremities: Normal Inspection, Normal Capillary Refill Peripheral Pulses: 2+: Posterior Tibial (L), Posterior Tibial (R), Dorsalis Pedis (L), Dorsalis Pedis (R) Skin: Warm, Dry, Intact Neuro Extensive - Mental Status: Alert, Oriented x3, Normal Mood/Affect, Normal Cognition, Memory Intact Neuro Extensive - Motor, Sensory, Reflexes: CN II-XII Intact Psychiatric: Alert, Normal Affect, Normal Mood - Patient Data Lab Results Last 24 hrs: Laboratory Results - last 24 hr 01/16/19 01/16/19 01/16/19 Range/Units 15:25 15:25 15:25 WBC 17.66 H (3.98-10.04) K/mm3 RBC 4.14 (3.98-5.22) M/mm3 Hgb 11.1 L (11.2-15.7) gm/dl Hct 36.3 (34.1-44.9) % MCV 87.7 (79.4-94.8) fl MCH 26.8 (25.6-32.2) pg MCHC 30.6 L (32.2-35.5) g/dl RDW Std Deviation 48.7 H (36.4-46.3) fL Plt Count 286 (182-369) K/mm3 MPV 9.6 (9.4-12.3) fl Neut % (Auto) 77.5 H (34.0-71.1) % Lymph % (Auto) 13.3 L (19.3-51.7) % [place] % (Auto) 6.3 (4.7-12.5) % Eos % (Auto) 2.5 (0.7-5.8) Baso % (Auto) 0.2 (0.1-1.2) % Neut # (Auto) 13.69 H (1.56-6.13) K/mm3 Lymph # (Auto) 2.34 (1.18-3.74) K/mm3 [place] # (Auto) 1.11 H (0.24-0.36) K/mm3 Eos # (Auto) 0.45 H (0.04-0.36) K/mm3 Baso # (Auto) 0.03 (0.01-0.08) K/mm3 Manual Slide Review Sodium 141 (136-145) mEq/L Potassium 4.8 (3.5-5.1) mEq/L Chloride 107 (98-107) mEq/L Carbon Dioxide 24 (21-32) mEq/L Anion Gap 14.8 (5-15) BUN 27 H (7-18) mg/dL Creatinine 1.1 H (0.55-1.02) mg/dL Est Cr Clr Drug Dosing 42.27 mL/min Estimated GFR (MDRD) 49 (>60) mL/min BUN/Creatinine Ratio 24.5 H (14-18) Glucose 82 (80-115) mg/dL POC Glucose (80-115) mg/dL Lactic Acid (0.4-2.0) mmol/L Calcium 9.2 (8.5-10.1) mg/dL Magnesium 1.6 L (1.8-2.4) mg/dl Total Bilirubin 0.2 (0.2-1.0) mg/dL AST 18 (15-37) U/L ALT 28 (14-59) U/L Alkaline Phosphatase 76 (46-116) U/L C-Reactive Protein 1.8 H* (<1.0) mg/dL Total Protein 7.2 (6.4-8.2) g/dl Albumin 3.6 (3.4-5.0) g/dl Globulin 3.6 gm/dL Albumin/Globulin Ratio 1.0 (1-2) Urine Color (Yellow) Urine Appearance (Clear) Urine pH (5.0-8.0) Ur Specific [place] (1.005-1.030) Urine Protein (Negative) Urine Glucose (UA) (Negative) Urine Ketones (Negative) Urine Occult Blood (Negative) Urine Nitrite (Negative) Urine Bilirubin (Negative) Urine Urobilinogen (0.2-1.0) Ur Leukocyte Esterase (Negative) Urine RBC (0-5) /hpf Urine WBC (0-5) /hpf Ur Epithelial Cells (0-5) /hpf Amorphous Sediment (NOT SEEN) /hpf Urine Bacteria (FEW) /hpf Urine Mucus (FEW) /hpf Mycoplasma pneumon IgM Negative (NEGATIVE) 01/16/19 01/16/19 01/16/19 Range/Units 16:25 17:10 22:14 WBC (3.98-10.04) K/mm3 RBC (3.98-5.22) M/mm3 Hgb (11.2-15.7) gm/dl Hct (34.1-44.9) % MCV (79.4-94.8) fl MCH (25.6-32.2) pg MCHC (32.2-35.5) g/dl RDW Std Deviation (36.4-46.3) fL Plt Count (182-369) K/mm3 MPV (9.4-12.3) fl Neut % (Auto) (34.0-71.1) % Lymph % (Auto) (19.3-51.7) % [place] % (Auto) (4.7-12.5) % Eos % (Auto) (0.7-5.8) Baso % (Auto) (0.1-1.2) % Neut # (Auto) (1.56-6.13) K/mm3 Lymph # (Auto) (1.18-3.74) K/mm3 [place] # (Auto) (0.24-0.36) K/mm3 Eos # (Auto) (0.04-0.36) K/mm3 Baso # (Auto) (0.01-0.08) K/mm3 Manual Slide Review Sodium (136-145) mEq/L Potassium (3.5-5.1) mEq/L Chloride (98-107) mEq/L Carbon Dioxide (21-32) mEq/L Anion Gap (5-15) BUN (7-18) mg/dL Creatinine (0.55-1.02) mg/dL Est Cr Clr Drug Dosing mL/min Estimated GFR (MDRD) (>60) mL/min BUN/Creatinine Ratio (14-18) Glucose (80-115) mg/dL POC Glucose 184 H (80-115) mg/dL Lactic Acid 1.8 (0.4-2.0) mmol/L Calcium (8.5-10.1) mg/dL Magnesium (1.8-2.4) mg/dl Total Bilirubin (0.2-1.0) mg/dL AST (15-37) U/L ALT (14-59) U/L Alkaline Phosphatase (46-116) U/L C-Reactive Protein (<1.0) mg/dL Total Protein (6.4-8.2) g/dl Albumin (3.4-5.0) g/dl Globulin gm/dL Albumin/Globulin Ratio (1-2) Urine Color Light yellow (Yellow) Urine Appearance Clear (Clear) Urine pH 5.5 (5.0-8.0) Ur Specific [place] 1.020 (1.005-1.030) Urine Protein Negative (Negative) Urine Glucose (UA) Negative (Negative) Urine Ketones Negative (Negative) Urine Occult Blood 2+ H (Negative) Urine Nitrite Negative (Negative) Urine Bilirubin Negative (Negative) Urine Urobilinogen 0.2 (0.2-1.0) Ur Leukocyte Esterase Negative (Negative) Urine RBC 10-20 H (0-5) /hpf Urine WBC 0-5 (0-5) /hpf Ur Epithelial Cells 0-5 (0-5) /hpf Amorphous Sediment Few H (NOT SEEN) /hpf Urine Bacteria Few (FEW) /hpf Urine Mucus Not seen (FEW) /hpf Mycoplasma pneumon IgM (NEGATIVE) 01/17/19 01/17/19 01/17/19 Range/Units 04:09 04:25 07:17 WBC 10.85 H (3.98-10.04) K/mm3 RBC 4.00 (3.98-5.22) M/mm3 Hgb 11.0 L (11.2-15.7) gm/dl Hct 34.7 (34.1-44.9) % MCV 86.8 (79.4-94.8) fl MCH 27.5 (25.6-32.2) pg MCHC 31.7 L (32.2-35.5) g/dl RDW Std Deviation 47.6 H (36.4-46.3) fL Plt Count 219 (182-369) K/mm3 MPV 10.1 (9.4-12.3) fl Neut % (Auto) 91.6 H (34.0-71.1) % Lymph % (Auto) 6.9 L (19.3-51.7) % [place] % (Auto) 0.9 L (4.7-12.5) % Eos % (Auto) 0.4 L (0.7-5.8) Baso % (Auto) 0.2 (0.1-1.2) % Neut # (Auto) 9.94 H (1.56-6.13) K/mm3 Lymph # (Auto) 0.75 L (1.18-3.74) K/mm3 [place] # (Auto) 0.10 L (0.24-0.36) K/mm3 Eos # (Auto) 0.04 (0.04-0.36) K/mm3 Baso # (Auto) 0.02 (0.01-0.08) K/mm3 Manual Slide Review Normal smear Sodium 138 (136-145) mEq/L Potassium 4.9 (3.5-5.1) mEq/L Chloride 102 (98-107) mEq/L Carbon Dioxide 23 (21-32) mEq/L Anion Gap 17.9 H (5-15) BUN 27 H (7-18) mg/dL Creatinine 1.2 H (0.55-1.02) mg/dL Est Cr Clr Drug Dosing 38.75 mL/min Estimated GFR (MDRD) 45 (>60) mL/min BUN/Creatinine Ratio 22.5 H (14-18) Glucose 248 H (80-115) mg/dL POC Glucose 268 H (80-115) mg/dL Lactic Acid (0.4-2.0) mmol/L Calcium 8.8 (8.5-10.1) mg/dL Magnesium 1.7 L (1.8-2.4) mg/dl Total Bilirubin (0.2-1.0) mg/dL AST (15-37) U/L ALT (14-59) U/L Alkaline Phosphatase (46-116) U/L C-Reactive Protein 2.4 H* (<1.0) mg/dL Total Protein (6.4-8.2) g/dl Albumin (3.4-5.0) g/dl Globulin gm/dL Albumin/Globulin Ratio (1-2) Urine Color (Yellow) Urine Appearance (Clear) Urine pH (5.0-8.0) Ur Specific [place] (1.005-1.030) Urine Protein (Negative) Urine Glucose (UA) (Negative) Urine Ketones (Negative) Urine Occult Blood (Negative) Urine Nitrite (Negative) Urine Bilirubin (Negative) Urine Urobilinogen (0.2-1.0) Ur Leukocyte Esterase (Negative) Urine RBC (0-5) /hpf Urine WBC (0-5) /hpf Ur Epithelial Cells (0-5) /hpf Amorphous Sediment (NOT SEEN) /hpf Urine Bacteria (FEW) /hpf Urine Mucus (FEW) /hpf Mycoplasma pneumon IgM (NEGATIVE) 01/17/19 Range/Units 11:32 WBC (3.98-10.04) K/mm3 RBC (3.98-5.22) M/mm3 Hgb (11.2-15.7) gm/dl Hct (34.1-44.9) % MCV (79.4-94.8) fl MCH (25.6-32.2) pg MCHC (32.2-35.5) g/dl RDW Std Deviation (36.4-46.3) fL Plt Count (182-369) K/mm3 MPV (9.4-12.3) fl Neut % (Auto) (34.0-71.1) % Lymph % (Auto) (19.3-51.7) % [place] % (Auto) (4.7-12.5) % Eos % (Auto) (0.7-5.8) Baso % (Auto) (0.1-1.2) % Neut # (Auto) (1.56-6.13) K/mm3 Lymph # (Auto) (1.18-3.74) K/mm3 [place] # (Auto) (0.24-0.36) K/mm3 Eos # (Auto) (0.04-0.36) K/mm3 Baso # (Auto) (0.01-0.08) K/mm3 Manual Slide Review Sodium (136-145) mEq/L Potassium (3.5-5.1) mEq/L Chloride (98-107) mEq/L Carbon Dioxide (21-32) mEq/L Anion Gap (5-15) BUN (7-18) mg/dL Creatinine (0.55-1.02) mg/dL Est Cr Clr Drug Dosing mL/min Estimated GFR (MDRD) (>60) mL/min BUN/Creatinine Ratio (14-18) Glucose (80-115) mg/dL POC Glucose 234 H (80-115) mg/dL Lactic Acid (0.4-2.0) mmol/L Calcium (8.5-10.1) mg/dL Magnesium (1.8-2.4) mg/dl Total Bilirubin (0.2-1.0) mg/dL AST (15-37) U/L ALT (14-59) U/L Alkaline Phosphatase (46-116) U/L C-Reactive Protein (<1.0) mg/dL Total Protein (6.4-8.2) g/dl Albumin (3.4-5.0) g/dl Globulin gm/dL Albumin/Globulin Ratio (1-2) Urine Color (Yellow) Urine Appearance (Clear) Urine pH (5.0-8.0) Ur Specific [place] (1.005-1.030) Urine Protein (Negative) Urine Glucose (UA) (Negative) Urine Ketones (Negative) Urine Occult Blood (Negative) Urine Nitrite (Negative) Urine Bilirubin (Negative) Urine Urobilinogen (0.2-1.0) Ur Leukocyte Esterase (Negative) Urine RBC (0-5) /hpf Urine WBC (0-5) /hpf Ur Epithelial Cells (0-5) /hpf Amorphous Sediment (NOT SEEN) /hpf Urine Bacteria (FEW) /hpf Urine Mucus (FEW) /hpf Mycoplasma pneumon IgM (NEGATIVE) Result Diagrams: 01/17/19 04:09 01/17/19 04:25 Antoni Results Last 24 hrs: Microbiology 01/16/19 06:00 Gram Stain - Final Sputum - Expectorated 01/16/19 17:10 Anaerobic Blood Culture - Final Blood - Venous 01/16/19 16:25 Influenza Type A Antigen Screen - Final Nasopharyngeal Swab NEGATIVE INFLUENZA A VIRUS AG REFERENCE RANGE: NEGATIVE Influenza Type B Antigen Screen - Final NEGATIVE INFLUENZA B VIRUS AG REFERENCE RANGE: NEGATIVE - Problem List (1) Acute bronchitis SNOMED Code(s): 14501091 ICD Code: J20.9 - ACUTE BRONCHITIS, UNSPECIFIED Status: Acute Priority: High Current Visit: No Qualifiers: Bronchitis organism: unspecified organism Qualified Code(s): J20.9 - Acute bronchitis, unspecified Problem List Initiated/Reviewed/Updated: Yes Orders Last 24hrs: Active Orders 24 hr Category Date Time Status Patient Status [ADT] Routine ADT 01/16/19 20:21 Active Antiembolic Devices [RC] BID Care 01/16/19 21:07 Active Blood Glucose Check, Bedside [RC] QIDACANDBED Care 01/16/19 21:10 Active Cardiac Monitoring [RC] CONTINUOUS Care 01/16/19 21:07 Active Height and Weight [RC] 04 Care 01/16/19 21:06 Active Intake and Output [RC] 04,16 Care 01/16/19 21:06 Active Oxygen Therapy [RC] PRN Care 01/16/19 21:06 Active RT Aerosol Therapy [RC] ASDIRECTED Care 01/16/19 21:08 Active Up With Assistance [RC] BID Care 01/16/19 21:06 Active Up ad [place] [RC] BID Care 01/16/19 21:06 Active VTE/DVT Education [RC] DAILY Care 01/16/19 21:06 Active Vital Signs [RC] Q4HR Care 01/16/19 21:06 Active Consult to Case Management/Cash Management Associate [CONS] Cons 01/16/19 21:06 Active Routine Consult to Spiritual Care [CONS] Routine Cons 01/16/19 21:06 Active OT Evaluation and Treatment [CONS] Routine Cons 01/16/19 21:06 Active PT Evaluation and Treatment [CONS] Routine Cons 01/16/19 21:06 Active Respiratory Care Assess and Treatment [CONS] Routine Cons 01/16/19 21:06 Active Chest 1V Frontal [CR] Stat Exams 01/16/19 15:05 Taken BASIC METABOLIC PANEL,BMP [CHEM] AM Lab 01/18/19 05:11 Ordered BASIC METABOLIC PANEL,BMP [CHEM] AM Lab 01/19/19 05:11 Ordered BASIC METABOLIC PANEL,BMP [CHEM] AM Lab 01/20/19 05:11 Ordered BASIC METABOLIC PANEL,BMP [CHEM] AM Lab 01/21/19 05:11 Ordered C-REACTIVE PROTEIN [CHEM] AM Lab 01/18/19 05:11 Ordered C-REACTIVE PROTEIN [CHEM] AM Lab 01/19/19 05:11 Ordered C-REACTIVE PROTEIN [CHEM] AM Lab 01/20/19 05:11 Ordered C-REACTIVE PROTEIN [CHEM] AM Lab 01/21/19 05:11 Ordered CBC WITH AUTO DIFF [HEME] AM Lab 01/18/19 05:11 Ordered CBC WITH AUTO DIFF [HEME] AM Lab 01/19/19 05:11 Ordered CBC WITH AUTO DIFF [HEME] AM Lab 01/20/19 05:11 Ordered CBC WITH AUTO DIFF [HEME] AM Lab 01/21/19 05:11 Ordered CULTURE BLOOD [BC] Stat Lab 01/16/19 17:10 Results CULTURE BLOOD [BC] Stat Lab 01/16/19 17:20 Received CULTURE URINE [RM] Stat Lab 01/16/19 16:25 Results MAGNESIUM [CHEM] AM Lab 01/18/19 05:11 Ordered MAGNESIUM [CHEM] AM Lab 01/19/19 05:11 Ordered MAGNESIUM [CHEM] AM Lab 01/20/19 05:11 Ordered MAGNESIUM [CHEM] AM Lab 01/21/19 05:11 Ordered Acetaminophen [Tylenol] Med 01/16/19 21:06 Active 650 mg PO Q4H PRN Albuterol/Ipratropium [DuoNeb 3.0-0.5 MG/3 ML] Med 01/16/19 21:06 Active 3 ml NEB Q4H PRN Allopurinol [Zyloprim] Med 01/17/19 09:00 Active 300 mg PO DAILY Aspirin [Halfprin] Med 01/17/19 09:00 Active 81 mg PO DAILY Benzonatate [Tessalon Perles] Med 01/17/19 09:00 Active 100 mg PO BID Bisacodyl [Dulcolax] Med 01/16/19 21:06 Active 5 mg PO DAILY PRN Dextromethorphan/guaiFENesin [Robitussin DM] Med 01/16/19 21:12 Active 10 ml PO Q4H PRN Dextrose 50% in Water Med 01/16/19 21:10 Active 50 ml IVPUSH ASDIRECTED PRN Docusate Sodium [Colace] Med 01/16/19 21:06 Active 100 mg PO BID PRN Docusate Sodium/Sennosides [Senna Plus] Med 01/16/19 21:06 Active 1 tab PO BID PRN HYDROmorphone [Dilaudid] Med 01/16/19 21:06 Active 0.25 mg IVPUSH Q2H PRN Insulin Lispro [HumaLOG] Med 01/16/19 22:00 Active See Protocol SUBCUT QIDACANDBED Mometasone/Formoterol [Dulera 200-5 MCG] Med 01/17/19 06:00 Active 2 puff IH BIDRT Nicotine [Habitrol] Med 01/17/19 09:00 Active 21 mg TRDERM DAILY Ondansetron [Zofran] Med 01/16/19 21:06 Active 4 mg IV Q6H PRN Oxymetazoline [Nasal Decongestant Offerle] Med 01/16/19 21:11 Active 0 ml DEE Q12HR PRN Pantoprazole [ProTONIX] Med 01/17/19 21:00 Active 40 mg PO Q12HR Patient's Own Medication [Ptom] Med 01/17/19 21:00 Active 0 each PO BEDTIME Patient's Own Medication [Ptom] Med 01/17/19 09:00 Active 0 each PO DAILY Patient's Own Medication [Ptom] Med 01/17/19 09:00 Active 0 each SUBCUT DAILY Polyethylene Glycol 3350 [MiraLAX] Med 01/16/19 21:06 Active 17 gm PO DAILY PRN Promethazine [Phenergan] 6.25 mg Med 01/16/19 21:06 Active Sodium Chloride 0.9% [Normal Saline] 50 ml IV Q6H Remove Patch Med 01/18/19 09:00 Active 1 ea TRDERM DAILY Remove Patch Med 01/19/19 21:00 Once 1 ea TRDERM ONETIME ONE Sertraline [Zoloft] Med 01/17/19 09:00 Active 100 mg PO DAILY Sodium Chloride 0.9% [Saline Flush] Med 01/16/19 16:20 Active 10 ml FLUSH ASDIRECTED PRN buPROPion [Wellbutrin XL] Med 01/17/19 09:00 Active 150 mg PO DAILY glipiZIDE [Glucotrol XL] Med 01/16/19 22:00 Active 10 mg PO BIDMEALS methylPREDNISolone Sod Succ [Solu-MEDROL] Med 01/16/19 22:00 Active 40 mg IVPUSH Q6H Blood Culture x2 Reflex Set [OM.PC] Stat Oth 01/16/19 16:21 Ordered Peripheral IV Insertion Adult [OM.PC] Routine Oth 01/16/19 16:20 Ordered Sequential Compression Device [OM.PC] Per Unit Routine Oth 01/16/19 21:07 Ordered Resuscitation Status Routine Resus Stat 01/16/19 21:06 Ordered Medication Orders Acetaminophen (Tylenol) 650 mg PO Q4H PRN PRN Reason: Pain (Mild 1-3)/fever Last Admin: 01/17/19 04:51 Dose: 650 mg Albuterol/Ipratropium (Duoneb 3.0-0.5 Mg/3 Ml) 3 ml NEB Q4H PRN PRN Reason: Shortness Of Breath/wheezing Last Admin: 01/17/19 06:01 Dose: 3 ml Allopurinol (Zyloprim) 300 mg PO DAILY PENDING SALE TO [facility] Last Admin: 01/17/19 08:01 Dose: 300 mg Aspirin (Halfprin) 81 mg PO DAILY PENDING SALE TO [facility] Last Admin: 01/17/19 08:01 Dose: 81 mg Benzonatate (Tessalon Perles) 100 mg PO BID PENDING SALE TO [facility] Last Admin: 01/17/19 08:01 Dose: 100 mg Bisacodyl (Dulcolax) 5 mg PO DAILY PRN PRN Reason: Constipation Bupropion HCl (Wellbutrin Xl) 150 mg PO DAILY PENDING SALE TO [facility] Last Admin: 01/17/19 11:45 Dose: 150 mg Dextrose/Water (Dextrose 50% In Water) 50 ml IVPUSH ASDIRECTED PRN PRN Reason: Hypoglycemia Docusate Sodium (Colace) 100 mg PO BID PRN PRN Reason: Constipation [facility] Admin: 01/17/19 07:22 Dose: 10 mg Admin: 01/16/19 22:17 Dose: 10 mg Guaifenesin/Phenylephrine HCl (Robitussin Dm) 10 ml PO Q4H PRN PRN Reason: Cough Hydromorphone HCl (Dilaudid) 0.25 mg IVPUSH Q2H PRN PRN Reason: Pain (severe 7-10) Last Admin: 01/16/19 22:20 Dose: 0.25 mg Promethazine HCl 6.25 mg/ (Sodium Chloride) 50.25 mls @ 100 mls/hr IV Q6H PRN PRN Reason: Nausea/Vomiting Insulin Human Lispro (Humalog) 0 unit SUBCUT QIDACANDBED PENDING SALE TO [facility]; Protocol Last Admin: 01/17/19 11:45 Dose: 4 units Admin: 01/17/19 08:01 Dose: 6 units Admin: 01/16/19 22:44 Dose: 2 units Methylprednisolone Sodium Succinate (Solu-Medrol) 40 mg IVPUSH Q6H PENDING SALE TO [facility] Last Admin: 01/17/19 11:45 Dose: 40 mg Admin: 01/17/19 04:52 Dose: 40 mg Admin: 01/16/19 22:18 Dose: 40 mg Miscellaneous Information (Remove Patch) 1 ea MARLYN ONETIME ONE Stop: 01/19/19 21:01 Miscellaneous Information (Remove Patch) 1 ea TRDERM DAILY PENDING SALE TO [facility] Mometasone Furoate/Formoterol Fumar (Dulera 200-5 Mcg) 2 puff IH BIDRT PENDING SALE TO [facility] Last Admin: 01/17/19 06:00 Dose: 2 puff Nicotine (Habitrol) 21 mg TRDERM DAILY PENDING SALE TO [facility] Last Admin: 01/17/19 08:01 Dose: 21 mg Ondansetron HCl (Zofran) 4 mg IV Q6H PRN PRN Reason: Nausea/Vomiting Oxymetazoline HCl (Nasal Decongestant Offerle) 0 ml DEE Q12HR PRN PRN Reason: Congestion Last Admin: 01/16/19 22:44 Dose: 1 spray Pantoprazole Sodium (Protonix) 40 mg PO Q12HR PENDING SALE TO [facility] Tresiba Flextouch U- (200 Ptom) 0 each SUBCUT DAILY PENDING SALE TO [facility] Last Admin: 01/17/19 10:19 Dose: Lovastatin 10 Mg (Ptom) 0 each PO BEDTIME PENDING SALE TO [facility] Meloxicam 15 Mg (Ptom) 0 each PO DAILY PENDING SALE TO [facility] Last Admin: 01/17/19 08:07 Dose: Polyethylene Glycol (Miralax) 17 gm PO DAILY PRN PRN Reason: Constipation Senna/Docusate Sodium (Senna Plus) 1 tab PO BID PRN PRN Reason: Constipation Sertraline HCl (Zoloft) 100 mg PO DAILY PENDING SALE TO [facility] Last Admin: 01/17/19 08:01 Dose: 100 mg Sodium Chloride (Saline Flush) 10 ml FLUSH ASDIRECTED PRN PRN Reason: Keep Vein Open Assessment/Plan Comment:: Assessment: Acute: Bronchitis * Chest Xray showed no acute pneumonia * Negative Mycoplasma and Influenza testing * Dextomethorphan/Guaifenesin for expectorant/cough suppression * Incentive Spirometry/Flutter valve Hypomagnesia * Magnesium levels of 1.6 * Replace and monitor Hyperglycemia * Exacerbated by steroid * History of type 2 diabetes Chronic: HTN, DM2, Asthma, COPD Plan: Admit patient to observation Continue home medication GI/DVT prophylaxis SW/CM for d/c planning Consider discharge 1-2 days Code status: full Prognosis: Good <Lu Bob T - Last Filed: 01/17/19 20:08> H&P History of Present Illness - General Admit Problem/Dx: Admission Diagnosis/Problem Admission Diagnosis/Problem Bronchitis Exam - Vital Signs Vital Signs: Last Vital Signs Temp 37.4 C 01/17/19 14:35 Pulse 81 01/17/19 14:35 Resp 18 01/17/19 14:35 BP 129/60 01/17/19 14:35 Pulse Ox 94 L 01/17/19 16:50 - Patient Data Lab Results Last 24 hrs: Laboratory Results - last 24 hr 01/16/19 01/16/19 01/17/19 Range/Units 16:25 22:14 04:09 WBC 10.85 H (3.98-10.04) K/mm3 RBC 4.00 (3.98-5.22) M/mm3 Hgb 11.0 L (11.2-15.7) gm/dl Hct 34.7 (34.1-44.9) % MCV 86.8 (79.4-94.8) fl MCH 27.5 (25.6-32.2) pg MCHC 31.7 L (32.2-35.5) g/dl RDW Std Deviation 47.6 H (36.4-46.3) fL Plt Count 219 (182-369) K/mm3 MPV 10.1 (9.4-12.3) fl Neut % (Auto) 91.6 H (34.0-71.1) % Lymph % (Auto) 6.9 L (19.3-51.7) % [place] % (Auto) 0.9 L (4.7-12.5) % Eos % (Auto) 0.4 L (0.7-5.8) Baso % (Auto) 0.2 (0.1-1.2) % Neut # (Auto) 9.94 H (1.56-6.13) K/mm3 Lymph # (Auto) 0.75 L (1.18-3.74) K/mm3 [place] # (Auto) 0.10 L (0.24-0.36) K/mm3 Eos # (Auto) 0.04 (0.04-0.36) K/mm3 Baso # (Auto) 0.02 (0.01-0.08) K/mm3 Manual Slide Review Normal smear Sodium (136-145) mEq/L Potassium (3.5-5.1) mEq/L Chloride (98-107) mEq/L Carbon Dioxide (21-32) mEq/L Anion Gap (5-15) BUN (7-18) mg/dL Creatinine (0.55-1.02) mg/dL Est Cr Clr Drug Dosing mL/min Estimated GFR (MDRD) (>60) mL/min BUN/Creatinine Ratio (14-18) Glucose (80-115) mg/dL POC Glucose 184 H (80-115) mg/dL Calcium (8.5-10.1) mg/dL Magnesium (1.8-2.4) mg/dl C-Reactive Protein (<1.0) mg/dL Urine RBC 10-20 H (0-5) /hpf Urine WBC 0-5 (0-5) /hpf Ur Epithelial Cells 0-5 (0-5) /hpf Amorphous Sediment Few H (NOT SEEN) /hpf Urine Bacteria Few (FEW) /hpf Urine Mucus Not seen (FEW) /hpf 01/17/19 01/17/19 01/17/19 Range/Units 04:25 07:17 11:32 WBC (3.98-10.04) K/mm3 RBC (3.98-5.22) M/mm3 Hgb (11.2-15.7) gm/dl Hct (34.1-44.9) % MCV (79.4-94.8) fl MCH (25.6-32.2) pg MCHC (32.2-35.5) g/dl RDW Std Deviation (36.4-46.3) fL Plt Count (182-369) K/mm3 MPV (9.4-12.3) fl Neut % (Auto) (34.0-71.1) % Lymph % (Auto) (19.3-51.7) % [place] % (Auto) (4.7-12.5) % Eos % (Auto) (0.7-5.8) Baso % (Auto) (0.1-1.2) % Neut # (Auto) (1.56-6.13) K/mm3 Lymph # (Auto) (1.18-3.74) K/mm3 [place] # (Auto) (0.24-0.36) K/mm3 Eos # (Auto) (0.04-0.36) K/mm3 Baso # (Auto) (0.01-0.08) K/mm3 Manual Slide Review Sodium 138 (136-145) mEq/L Potassium 4.9 (3.5-5.1) mEq/L Chloride 102 (98-107) mEq/L Carbon Dioxide 23 (21-32) mEq/L Anion Gap 17.9 H (5-15) BUN 27 H (7-18) mg/dL Creatinine 1.2 H (0.55-1.02) mg/dL Est Cr Clr Drug Dosing 38.75 mL/min Estimated GFR (MDRD) 45 (>60) mL/min BUN/Creatinine Ratio 22.5 H (14-18) Glucose 248 H (80-115) mg/dL POC Glucose 268 H 234 H (80-115) mg/dL Calcium 8.8 (8.5-10.1) mg/dL Magnesium 1.7 L (1.8-2.4) mg/dl C-Reactive Protein 2.4 H* (<1.0) mg/dL Urine RBC (0-5) /hpf Urine WBC (0-5) /hpf Ur Epithelial Cells (0-5) /hpf Amorphous Sediment (NOT SEEN) /hpf Urine Bacteria (FEW) /hpf Urine Mucus (FEW) /hpf 01/17/19 Range/Units 17:11 WBC (3.98-10.04) K/mm3 RBC (3.98-5.22) M/mm3 Hgb (11.2-15.7) gm/dl Hct (34.1-44.9) % MCV (79.4-94.8) fl MCH (25.6-32.2) pg MCHC (32.2-35.5) g/dl RDW Std Deviation (36.4-46.3) fL Plt Count (182-369) K/mm3 MPV (9.4-12.3) fl Neut % (Auto) (34.0-71.1) % Lymph % (Auto) (19.3-51.7) % [place] % (Auto) (4.7-12.5) % Eos % (Auto) (0.7-5.8) Baso % (Auto) (0.1-1.2) % Neut # (Auto) (1.56-6.13) K/mm3 Lymph # (Auto) (1.18-3.74) K/mm3 [place] # (Auto) (0.24-0.36) K/mm3 Eos # (Auto) (0.04-0.36) K/mm3 Baso # (Auto) (0.01-0.08) K/mm3 Manual Slide Review Sodium (136-145) mEq/L Potassium (3.5-5.1) mEq/L Chloride (98-107) mEq/L Carbon Dioxide (21-32) mEq/L Anion Gap (5-15) BUN (7-18) mg/dL Creatinine (0.55-1.02) mg/dL Est Cr Clr Drug Dosing mL/min Estimated GFR (MDRD) (>60) mL/min BUN/Creatinine Ratio (14-18) Glucose (80-115) mg/dL POC Glucose 323 H (80-115) mg/dL Calcium (8.5-10.1) mg/dL Magnesium (1.8-2.4) mg/dl C-Reactive Protein (<1.0) mg/dL Urine RBC (0-5) /hpf Urine WBC (0-5) /hpf Ur Epithelial Cells (0-5) /hpf Amorphous Sediment (NOT SEEN) /hpf Urine Bacteria (FEW) /hpf Urine Mucus (FEW) /hpf Result Diagrams: 01/17/19 04:09 01/17/19 04:25 Antoni Results Last 24 hrs: Microbiology 01/16/19 17:10 Aerobic Blood Culture - Preliminary Blood - Venous NO GROWTH AFTER 1 DAY Anaerobic Blood Culture - Final 01/16/19 17:20 Aerobic Blood Culture - Preliminary Blood - Venous - Lab Draw NO GROWTH AFTER 1 DAY Anaerobic Blood Culture - Preliminary NO GROWTH AFTER 1 DAY 01/16/19 06:00 Gram Stain - Final Sputum - Expectorated 01/16/19 16:25 Influenza Type A Antigen Screen - Final Nasopharyngeal Swab NEGATIVE INFLUENZA A VIRUS AG REFERENCE RANGE: NEGATIVE Influenza Type B Antigen Screen - Final NEGATIVE INFLUENZA B VIRUS AG REFERENCE RANGE: NEGATIVE Orders Last 24hrs: Active Orders 24 hr Category Date Time Status Patient Status [ADT] Routine ADT 01/16/19 20:21 Active Antiembolic Devices [RC] BID Care 01/16/19 21:07 Active Blood Glucose Check, Bedside [RC] QIDACANDBED Care 01/16/19 21:10 Active Cardiac Monitoring [RC] CONTINUOUS Care 01/16/19 21:07 Active Height and Weight [RC] 04 Care 01/16/19 21:06 Active Intake and Output [RC] 04,16 Care 01/16/19 21:06 Active Oxygen Therapy [RC] PRN Care 01/16/19 21:06 Active RT Aerosol Therapy [RC] ASDIRECTED Care 01/16/19 21:08 Active Up With Assistance [RC] BID Care 01/16/19 21:06 Active Up ad [place] [RC] BID Care 01/16/19 21:06 Active VTE/DVT Education [RC] DAILY Care 01/16/19 21:06 Active Vital Signs [RC] Q4HR Care 01/16/19 21:06 Active Consult to Case Management/Cash Management Associate [CONS] Cons 01/16/19 21:06 Active Routine Consult to Spiritual Care [CONS] Routine Cons 01/16/19 21:06 Active OT Evaluation and Treatment [CONS] Routine Cons 01/16/19 21:06 Active PT Evaluation and Treatment [CONS] Routine Cons 01/16/19 21:06 Active Respiratory Care Assess and Treatment [CONS] Routine Cons 01/16/19 21:06 Active BASIC METABOLIC PANEL,BMP [CHEM] AM Lab 01/18/19 05:11 Ordered BASIC METABOLIC PANEL,BMP [CHEM] AM Lab 01/19/19 05:11 Ordered BASIC METABOLIC PANEL,BMP [CHEM] AM Lab 01/20/19 05:11 Ordered BASIC METABOLIC PANEL,BMP [CHEM] AM Lab 01/21/19 05:11 Ordered C-REACTIVE PROTEIN [CHEM] AM Lab 01/18/19 05:11 Ordered C-REACTIVE PROTEIN [CHEM] AM Lab 01/19/19 05:11 Ordered C-REACTIVE PROTEIN [CHEM] AM Lab 01/20/19 05:11 Ordered C-REACTIVE PROTEIN [CHEM] AM Lab 01/21/19 05:11 Ordered CBC WITH AUTO DIFF [HEME] AM Lab 01/18/19 05:11 Ordered CBC WITH AUTO DIFF [HEME] AM Lab 01/19/19 05:11 Ordered CBC WITH AUTO DIFF [HEME] AM Lab 01/20/19 05:11 Ordered CBC WITH AUTO DIFF [HEME] AM Lab 01/21/19 05:11 Ordered MAGNESIUM [CHEM] AM Lab 01/18/19 05:11 Ordered MAGNESIUM [CHEM] AM Lab 01/19/19 05:11 Ordered MAGNESIUM [CHEM] AM Lab 01/20/19 05:11 Ordered MAGNESIUM [CHEM] AM Lab 01/21/19 05:11 Ordered Acetaminophen [Tylenol] Med 01/16/19 21:06 Active 650 mg PO Q4H PRN Acetaminophen/HYDROcodone [Pharr 325-5 MG] Med 01/17/19 18:05 Active 1 tab PO Q6H PRN Albuterol/Ipratropium [DuoNeb 3.0-0.5 MG/3 ML] Med 01/16/19 21:06 Active 3 ml NEB Q4H PRN Allopurinol [Zyloprim] Med 01/17/19 09:00 Active 300 mg PO DAILY Aspirin [Halfprin] Med 01/17/19 09:00 Active 81 mg PO DAILY Benzonatate [Tessalon Perles] Med 01/17/19 09:00 Active 100 mg PO BID Bisacodyl [Dulcolax] Med 01/16/19 21:06 Active 5 mg PO DAILY PRN Dextromethorphan/guaiFENesin [Robitussin DM] Med 01/16/19 21:12 Active 10 ml PO Q4H PRN Dextrose 50% in Water Med 01/16/19 21:10 Active 50 ml IVPUSH ASDIRECTED PRN Docusate Sodium [Colace] Med 01/16/19 21:06 Active 100 mg PO BID PRN Docusate Sodium/Sennosides [Senna Plus] Med 01/16/19 21:06 Active 1 tab PO BID PRN HYDROmorphone [Dilaudid] Med 01/16/19 21:06 Active 0.25 mg IVPUSH Q2H PRN Insulin Lispro [HumaLOG] Med 01/16/19 22:00 Active See Protocol SUBCUT QIDACANDBED Mometasone/Formoterol [Dulera 200-5 MCG] Med 01/17/19 06:00 Active 2 puff IH BIDRT Nicotine [Habitrol] Med 01/17/19 09:00 Active 21 mg TRDERM DAILY Ondansetron [Zofran] Med 01/16/19 21:06 Active 4 mg IV Q6H PRN Oxymetazoline [Nasal Decongestant Offerle] Med 01/16/19 21:11 Active 0 ml DEE Q12HR PRN Pantoprazole [ProTONIX] Med 01/17/19 21:00 Active 40 mg PO Q12HR Patient's Own Medication [Ptom] Med 01/17/19 21:00 Active 0 each PO BEDTIME Patient's Own Medication [Ptom] Med 01/17/19 09:00 Active 0 each PO DAILY Patient's Own Medication [Ptom] Med 01/17/19 09:00 Active 0 each SUBCUT DAILY Polyethylene Glycol 3350 [MiraLAX] Med 01/16/19 21:06 Active 17 gm PO DAILY PRN Promethazine [Phenergan] 6.25 mg Med 01/16/19 21:06 Active Sodium Chloride 0.9% [Normal Saline] 50 ml IV Q6H Remove Patch Med 01/18/19 09:00 Active 1 ea TRDERM DAILY Remove Patch Med 01/19/19 21:00 Once 1 ea TRDERM ONETIME ONE Sertraline [Zoloft] Med 01/17/19 09:00 Active 100 mg PO DAILY buPROPion [Wellbutrin XL] Med 01/17/19 09:00 Active 150 mg PO DAILY glipiZIDE [Glucotrol XL] Med 01/16/19 22:00 Active 10 mg PO BIDMEALS methylPREDNISolone Sod Succ [Solu-MEDROL] Med 01/16/19 22:00 Active 40 mg IVPUSH Q6H Sequential Compression Device [OM.PC] Per Unit Routine Oth 01/16/19 21:07 Ordered Resuscitation Status Routine Resus Stat 01/16/19 21:06 Ordered Medication Orders Acetaminophen (Tylenol) 650 mg PO Q4H PRN PRN Reason: Pain (Mild 1-3)/fever Last Admin: 01/17/19 17:11 Dose: 650 mg Admin: 01/17/19 04:51 Dose: 650 mg Hydrocodone Bitart/Acetaminophen ([place] 325-5 Mg) 1 tab PO Q6H PRN PRN Reason: pain Albuterol/Ipratropium (Duoneb 3.0-0.5 Mg/3 Ml) 3 ml NEB Q4H PRN PRN Reason: Shortness Of Breath/wheezing Last Admin: 01/17/19 16:49 Dose: 3 ml Admin: 01/17/19 06:01 Dose: 3 ml Allopurinol (Zyloprim) 300 mg PO DAILY [place] Last Admin: 01/17/19 08:01 Dose: 300 mg Aspirin (Halfprin) 81 mg PO DAILY PENDING SALE TO [facility] Last Admin: 01/17/19 08:01 Dose: 81 mg Benzonatate (Tessalon Perles) 100 mg PO BID PENDING SALE TO [facility] Last Admin: 01/17/19 08:01 Dose: 100 mg Bisacodyl (Dulcolax) 5 mg PO DAILY PRN PRN Reason: Constipation Bupropion HCl (Wellbutrin Xl) 150 mg PO DAILY PENDING SALE TO [facility] Last Admin: 01/17/19 11:45 Dose: 150 mg Dextrose/Water (Dextrose 50% In Water) 50 ml IVPUSH ASDIRECTED PRN PRN Reason: Hypoglycemia Docusate Sodium (Colace) 100 mg PO BID PRN PRN Reason: Constipation [facility] Admin: 01/17/19 17:10 Dose: 10 mg Admin: 01/17/19 07:22 Dose: 10 mg Admin: 01/16/19 22:17 Dose: 10 mg Guaifenesin/Phenylephrine HCl (Robitussin Dm) 10 ml PO Q4H PRN PRN Reason: Cough Hydromorphone HCl (Dilaudid) 0.25 mg IVPUSH Q2H PRN PRN Reason: Pain (severe 7-10) Last Admin: 01/17/19 17:17 Dose: 0.25 mg Admin: 01/16/19 22:20 Dose: 0.25 mg Promethazine HCl 6.25 mg/ (Sodium Chloride) 50.25 mls @ 100 mls/hr IV Q6H PRN PRN Reason: Nausea/Vomiting Insulin Human Lispro (Humalog) 0 unit SUBCUT QIDACANDBED PENDING SALE TO [facility]; Protocol Last Admin: 01/17/19 17:12 Dose: 6 units Admin: 01/17/19 11:45 Dose: 4 units Admin: 01/17/19 08:01 Dose: 6 units Admin: 01/16/19 22:44 Dose: 2 units Methylprednisolone Sodium Succinate (Solu-Medrol) 40 mg IVPUSH Q6H PENDING SALE TO [facility] Last Admin: 01/17/19 15:12 Dose: 40 mg Admin: 01/17/19 11:45 Dose: 40 mg Admin: 01/17/19 04:52 Dose: 40 mg Admin: 01/16/19 22:18 Dose: 40 mg Miscellaneous Information (Remove Patch) 1 chuy CLINE ONETIME ONE Stop: 01/19/19 21:01 Miscellaneous Information (Remove Patch) 1 ea TRDERM DAILY PENDING SALE TO [facility] Mometasone Furoate/Formoterol Fumar (Dulera 200-5 Mcg) 2 puff IH BIDRT PENDING SALE TO [facility] Last Admin: 01/17/19 06:00 Dose: 2 puff Nicotine (Habitrol) 21 mg TRDERM DAILY PENDING SALE TO [facility] Last Admin: 01/17/19 08:01 Dose: 21 mg Ondansetron HCl (Zofran) 4 mg IV Q6H PRN PRN Reason: Nausea/Vomiting Oxymetazoline HCl (Nasal Decongestant [place]) 0 ml DEE Q12HR PRN PRN Reason: Congestion Last Admin: 01/16/19 22:44 Dose: 1 spray Pantoprazole Sodium (Protonix) 40 mg PO Q12HR PENDING SALE TO [facility] Tresiba Flextouch U- (200 Ptom) 0 each SUBCUT DAILY PENDING SALE TO [facility] Last Admin: 01/17/19 10:19 Dose: Lovastatin 10 Mg (Ptom) 0 each PO BEDTIME PENDING SALE TO [facility] Meloxicam 15 Mg (Ptom) 0 each PO DAILY PENDING SALE TO [facility] Last Admin: 01/17/19 08:07 Dose: Polyethylene Glycol (Miralax) 17 gm PO DAILY PRN PRN Reason: Constipation Senna/Docusate Sodium (Senna Plus) 1 tab PO BID PRN PRN Reason: Constipation Sertraline HCl (Zoloft) 100 mg PO DAILY PENDING SALE TO [facility] Last Admin: 01/17/19 08:01 Dose: 100 mg Sodium Chloride (Saline Flush) 10 ml FLUSH ASDIRECTED PRN PRN Reason: Keep Vein Open Assessment/Plan Comment:: The patient was seen and examined at bedside in concert with the medical student. The admission assessment and plans were discussed and agreed upon with me. Patient is doing a little better this morning. Pulmonary auscultation revealed no wheezing or ronchi. She is mildly low on Mg at 1.6. Her glucose is elevated due to steroid. - Mortality Measure Prognosis:: Good
[2019-01-17] MEDS ORDERED: Magnesium Sulfate/Water 2 GM in Premix Bag 1 BAG IV ONE (13:42)
[2019-01-17] MEDS: HYDROmorphone 0.5 MG/0.5 ML Syringe IVPUSH PRN (17:17)
[2019-01-17] MEDS ORDERED: Acetaminophen/HYDROcodone 325-5 MG Tab PO PRN (18:05)
[2019-01-17] MEDS: Pantoprazole 40 MG Tab.CR PO SCH (21:36)
[2019-01-17] MEDS: Temazepam 7.5 MG Cap PO PRN (21:36)
[2019-01-17] MEDS: LOVASTATIN 10 MG PO SCH (21:37)
[2019-01-18] MEDS: methylPREDNISolone Sodium Succinate 40 MG/1 ML SDV IVPUSH SCH (04:44)
[2019-01-18] MEDS: Benzonatate 100 MG Cap PO SCH ×4 (06:59→21:04)
[2019-01-18] MEDS: glipiZIDE 5 MG Tab.ER PO SCH (06:59)
--- NOTE | 2019-01-18 07:29 | PCM.PN ---
- General Info Date of Service: 01/18/19 Admission Dx/Problem (Free Text): Admission Diagnosis/Problem Admission Diagnosis/Problem Bronchitis Subjective Update: Follow Up Functional Status: Reports: Pain Controlled, Tolerating Diet, Ambulating, Urinating. Denies: New Symptoms - Review of Systems General: Denies: Fever, Weakness, Fatigue, Malaise, Chills HEENT: Reports: No Symptoms Pulmonary: Reports: Shortness of Breath, Cough, Sputum Cardiovascular: Denies: Chest Pain, Dyspnea on Exertion, Lightheadedness Gastrointestinal: Reports: Difficulty Swallowing. Denies: Abdominal Pain, Nausea, Vomiting Genitourinary: Reports: No Symptoms Musculoskeletal: Reports: No Symptoms Skin: Reports: No Symptoms Neurological: Denies: Confusion, Difficulty Walking, Weakness, Gait Disturbance Psychiatric: Denies: Depression, Mood Lability, Anxiety, Agitation, Hallucinations Systems Review Comment:: No overnight or acute issues. She feels a little better and she is now coughing less. Her K is 5.7 and CRP is down to 1.2. - Patient Data Vitals - Most Recent: Last Vital Signs Temp 36.4 C 01/18/19 04:36 Pulse 55 L 01/18/19 04:36 Resp 18 01/18/19 04:36 BP 148/56 H 01/18/19 04:36 Pulse Ox 96 01/18/19 04:36 Weight - Most Recent: 112.536 kg I&O - Last 24 Hours: Intake & Output 01/17/19 01/18/19 01/18/19 22:59 06:59 14:59 Intake Total 970 800 Output Total 300 1200 Balance 670 -400 Lab Results Last 24 Hours: Laboratory Results - last 24 hr 01/17/19 01/17/19 01/17/19 Range/Units 04:09 07:17 11:32 WBC (3.98-10.04) K/mm3 RBC (3.98-5.22) M/mm3 Hgb (11.2-15.7) gm/dl Hct (34.1-44.9) % MCV (79.4-94.8) fl MCH (25.6-32.2) pg MCHC (32.2-35.5) g/dl RDW Std Deviation (36.4-46.3) fL Plt Count (182-369) K/mm3 MPV (9.4-12.3) fl Neut % (Auto) (34.0-71.1) % Lymph % (Auto) (19.3-51.7) % Cass % (Auto) (4.7-12.5) % Eos % (Auto) (0.7-5.8) Baso % (Auto) (0.1-1.2) % Neut # (Auto) (1.56-6.13) K/mm3 Lymph # (Auto) (1.18-3.74) K/mm3 Cass # (Auto) (0.24-0.36) K/mm3 Eos # (Auto) (0.04-0.36) K/mm3 Baso # (Auto) (0.01-0.08) K/mm3 Manual Slide Review Normal smear Sodium (136-145) mEq/L Potassium (3.5-5.1) mEq/L Chloride (98-107) mEq/L Carbon Dioxide (21-32) mEq/L Anion Gap (5-15) BUN (7-18) mg/dL Creatinine (0.55-1.02) mg/dL Est Cr Clr Drug Dosing mL/min Estimated GFR (MDRD) (>60) mL/min BUN/Creatinine Ratio (14-18) Glucose (80-115) mg/dL POC Glucose 268 H 234 H (80-115) mg/dL Calcium (8.5-10.1) mg/dL Magnesium (1.8-2.4) mg/dl C-Reactive Protein (<1.0) mg/dL 01/17/19 01/17/19 01/18/19 Range/Units 17:11 21:01 04:13 WBC 10.12 H (3.98-10.04) K/mm3 RBC 3.94 L (3.98-5.22) M/mm3 Hgb 10.5 L (11.2-15.7) gm/dl Hct 34.1 (34.1-44.9) % MCV 86.5 (79.4-94.8) fl MCH 26.6 (25.6-32.2) pg MCHC 30.8 L (32.2-35.5) g/dl RDW Std Deviation 46.9 H (36.4-46.3) fL Plt Count 175 L (182-369) K/mm3 MPV 11.3 (9.4-12.3) fl Neut % (Auto) 86.9 H (34.0-71.1) % Lymph % (Auto) 6.5 L (19.3-51.7) % Cass % (Auto) 3.1 L (4.7-12.5) % Eos % (Auto) 3.0 (0.7-5.8) Baso % (Auto) 0.0 L (0.1-1.2) % Neut # (Auto) 8.80 H (1.56-6.13) K/mm3 Lymph # (Auto) 0.66 L (1.18-3.74) K/mm3 Cass # (Auto) 0.31 (0.24-0.36) K/mm3 Eos # (Auto) 0.30 (0.04-0.36) K/mm3 Baso # (Auto) 0.00 L (0.01-0.08) K/mm3 Manual Slide Review Abnormal smear Sodium (136-145) mEq/L Potassium (3.5-5.1) mEq/L Chloride (98-107) mEq/L Carbon Dioxide (21-32) mEq/L Anion Gap (5-15) BUN (7-18) mg/dL Creatinine (0.55-1.02) mg/dL Est Cr Clr Drug Dosing mL/min Estimated GFR (MDRD) (>60) mL/min BUN/Creatinine Ratio (14-18) Glucose (80-115) mg/dL POC Glucose 323 H 329 H (80-115) mg/dL Calcium (8.5-10.1) mg/dL Magnesium (1.8-2.4) mg/dl C-Reactive Protein (<1.0) mg/dL 01/18/19 01/18/19 Range/Units 04:13 06:58 WBC (3.98-10.04) K/mm3 RBC (3.98-5.22) M/mm3 Hgb (11.2-15.7) gm/dl Hct (34.1-44.9) % MCV (79.4-94.8) fl MCH (25.6-32.2) pg MCHC (32.2-35.5) g/dl RDW Std Deviation (36.4-46.3) fL Plt Count (182-369) K/mm3 MPV (9.4-12.3) fl Neut % (Auto) (34.0-71.1) % Lymph % (Auto) (19.3-51.7) % Cass % (Auto) (4.7-12.5) % Eos % (Auto) (0.7-5.8) Baso % (Auto) (0.1-1.2) % Neut # (Auto) (1.56-6.13) K/mm3 Lymph # (Auto) (1.18-3.74) K/mm3 Cass # (Auto) (0.24-0.36) K/mm3 Eos # (Auto) (0.04-0.36) K/mm3 Baso # (Auto) (0.01-0.08) K/mm3 Manual Slide Review Sodium 137 (136-145) mEq/L Potassium 5.7 H (3.5-5.1) mEq/L Chloride 104 (98-107) mEq/L Carbon Dioxide 23 (21-32) mEq/L Anion Gap 15.7 H (5-15) BUN 35 H (7-18) mg/dL Creatinine 1.3 H (0.55-1.02) mg/dL Est Cr Clr Drug Dosing 35.76 mL/min Estimated GFR (MDRD) 41 (>60) mL/min BUN/Creatinine Ratio 26.9 H (14-18) Glucose 359 H (80-115) mg/dL POC Glucose 292 H (80-115) mg/dL Calcium 8.5 (8.5-10.1) mg/dL Magnesium 2.2 (1.8-2.4) mg/dl C-Reactive Protein 1.6 H* (<1.0) mg/dL Antoni Results Last 24 Hours: Microbiology 01/16/19 17:10 Aerobic Blood Culture - Preliminary Blood - Venous NO GROWTH AFTER 1 DAY Anaerobic Blood Culture - Final 01/16/19 17:20 Aerobic Blood Culture - Preliminary Blood - Venous - Lab Draw NO GROWTH AFTER 1 DAY Anaerobic Blood Culture - Preliminary NO GROWTH AFTER 1 DAY 01/16/19 06:00 Gram Stain - Final Sputum - Expectorated Med Orders - Current: Current Medications Acetaminophen (Tylenol) 650 mg PO Q4H PRN PRN Reason: Pain (Mild 1-3)/fever Last Admin: 01/17/19 17:11 Dose: 650 mg Hydrocodone Bitart/Acetaminophen ([place] 325-5 Mg) 1 tab PO Q6H PRN PRN Reason: pain Albuterol/Ipratropium (Duoneb 3.0-0.5 Mg/3 Ml) 3 ml NEB Q4H PRN PRN Reason: Shortness Of Breath/wheezing Last Admin: 01/17/19 16:49 Dose: 3 ml Allopurinol (Zyloprim) 300 mg PO DAILY [facility] Last Admin: 01/17/19 08:01 Dose: 300 mg Aspirin (Halfprin) 81 mg PO DAILY [facility] Last Admin: 01/17/19 08:01 Dose: 81 mg Benzonatate (Tessalon Perles) 100 mg PO TID [facility] Last Admin: 01/18/19 06:59 Dose: 100 mg Bisacodyl (Dulcolax) 5 mg PO DAILY PRN PRN Reason: Constipation Bupropion HCl (Wellbutrin Xl) 150 mg PO DAILY [facility] Last Admin: 01/17/19 11:45 Dose: 150 mg Dextrose/Water (Dextrose 50% In Water) 50 ml IVPUSH ASDIRECTED PRN PRN Reason: Hypoglycemia Docusate Sodium (Colace) 100 mg PO BID PRN PRN Reason: Constipation Glipizide (Glucotrol Xl) 10 mg PO BIDMEALS [facility] Last Admin: 01/18/19 06:59 Dose: 10 mg Guaifenesin/Phenylephrine HCl (Robitussin Dm) 10 ml PO Q4H PRN PRN Reason: Cough Hydromorphone HCl (Dilaudid) 0.25 mg IVPUSH Q2H PRN PRN Reason: Pain (severe 7-10) Last Admin: 01/17/19 17:17 Dose: 0.25 mg Promethazine HCl 6.25 mg/ (Sodium Chloride) 50.25 mls @ 100 mls/hr IV Q6H PRN PRN Reason: Nausea/Vomiting Insulin Human Lispro (Humalog) 0 unit SUBCUT QIDACANDBED [facility]; Protocol Last Admin: 01/17/19 21:38 Dose: 12 units Methylprednisolone Sodium Succinate (Solu-Medrol) 40 mg IVPUSH BID [facility] Miscellaneous Information (Remove Patch) 1 ea TRDERM ONETIME ONE Stop: 01/19/19 21:01 Miscellaneous Information (Remove Patch) 1 ea TRDERM DAILY [facility] Mometasone Furoate/Formoterol Fumar (Dulera 200-5 Mcg) 2 puff IH BIDRT [facility] Last Admin: 01/17/19 20:27 Dose: 2 puff Nicotine (Habitrol) 21 mg TRDERM DAILY [facility] Last Admin: 01/17/19 08:01 Dose: 21 mg Ondansetron HCl (Zofran) 4 mg IV Q6H PRN PRN Reason: Nausea/Vomiting Oxymetazoline HCl (Nasal Decongestant [place]) 0 ml DEE Q12HR PRN PRN Reason: Congestion Last Admin: 01/16/19 22:44 Dose: 1 spray Pantoprazole Sodium (Protonix) 40 mg PO Q12HR [facility] Last Admin: 01/17/19 21:36 Dose: 40 mg Lovastatin 10 Mg (Ptom) 0 each PO BEDTIME [facility] Last Admin: 01/17/19 21:37 Dose: 1 each Meloxicam 15 Mg (Ptom) 0 each PO DAILY [facility] Last Admin: 01/17/19 08:07 Dose: Not Given Patient Own Medication (Ptom) 45 each SUBCUT BID [facility] Polyethylene Glycol (Miralax) 17 gm PO DAILY PRN PRN Reason: Constipation Senna/Docusate Sodium (Senna Plus) 1 tab PO BID PRN PRN Reason: Constipation Sertraline HCl (Zoloft) 100 mg PO DAILY [facility] Last Admin: 01/17/19 08:01 Dose: 100 mg Sodium Chloride (Saline Flush) 10 ml FLUSH ASDIRECTED PRN PRN Reason: Keep Vein Open Temazepam (Restoril) 7.5 mg PO BEDTIME PRN PRN Reason: Sleep Last Admin: 01/17/19 21:36 Dose: 7.5 mg Discontinued Medications Acetaminophen (Tylenol) 650 mg PO NOW ONE Stop: 01/16/19 18:41 Last Admin: 01/16/19 19:05 Dose: 650 mg Albuterol (Proventil Neb Soln) 2.5 mg NEB ONETIME ONE Stop: 01/16/19 18:26 Last Admin: 01/16/19 20:04 Dose: 2.5 mg Albuterol/Ipratropium (Duoneb 3.0-0.5 Mg/3 Ml) 3 ml NEB ONETIME ONE Stop: 01/16/19 16:21 Last Admin: 01/16/19 16:28 Dose: 3 ml Benzonatate (Tessalon Perles) 100 mg PO BID [facility] Last Admin: 01/17/19 08:01 Dose: 100 mg Benzonatate (Tessalon Perles) 100 mg PO ONETIME ONE Stop: 01/16/19 21:13 Last Admin: 01/16/19 22:17 Dose: 100 mg Ceftriaxone Sodium 2 gm/ (Sodium Chloride) 100 mls @ 200 mls/hr IV NOW STA Stop: 01/16/19 18:54 Last Admin: 01/16/19 19:56 Dose: 200 mls/hr Sodium Chloride (Normal Saline) 1,000 mls @ 100 mls/hr IV ASDIRECTED [facility] Last Admin: 01/16/19 19:55 Dose: 100 mls/hr Magnesium Sulfate 2 gm/ Premix 50 mls @ 25 mls/hr IV ONETIME ONE Stop: 01/17/19 15:41 Last Admin: 01/17/19 15:12 Dose: 25 mls/hr Methylprednisolone Sodium Succinate (Solu-Medrol) 40 mg IVPUSH Q6H [facility] Last Admin: 01/18/19 04:44 Dose: 40 mg Non-Formulary Medication (Albuterol/Ipratropium [Duoneb 3.0-0.5 Mg/3 Ml]) 3 ml INH QID [facility] Non-Formulary Medication (Bupropion [Bupropion Xl]) 150 mg PO DAILY [facility] Pantoprazole Sodium (Protonix Iv) 40 mg IV Q12HR [facility] Last Admin: 01/17/19 08:02 Dose: 40 mg Tresiba Flextouch U- (200 Ptom) 0 each SUBCUT DAILY [facility] Last Admin: 01/17/19 10:19 Dose: Not Given Scopolamine (Transderm-Scop) 1.5 mg TRDERM Q72H ONE Stop: 01/16/19 21:13 Last Admin: 01/16/19 22:16 Dose: 1.5 mg - Exam Quality Assessment: Supplemental Oxygen General: Alert, Oriented, Cooperative, No Acute Distress, Other (Obese) HEENT: Pupils Equal, Pupils Reactive, EOMI, Mucous Membr. Moist/[place] Neck: Supple, Trachea Midline Lungs: Clear to Auscultation, Normal Respiratory Effort Cardiovascular: Regular Rate, Regular Rhythm GI/Abdominal Exam: Normal Bowel Sounds, Soft, Non-Tender, No Organomegaly, No Distention, No Abnormal Bruit, Other (Obese) (Female) Exam: Deferred Back Exam: Normal Inspection, Decreased Range of Motion Extremities: Normal Inspection, Normal Range of Motion, Non-Tender, No Pedal Edema, Normal Capillary Refill Peripheral Pulses: 2+: Dorsalis Pedis (L), Dorsalis Pedis (R) Skin: Warm, Dry, Intact Neurological: No New Focal Deficit, Normal Gait Psy/Mental Status: Alert, Normal Affect, Normal Mood - Problem List Review Problem List Initiated/Reviewed/Updated: Yes - My Orders Last 24 Hours: My Active Orders 01/17/19 09:00 Allopurinol [Zyloprim] 300 mg PO DAILY Aspirin [Halfprin] 81 mg PO DAILY Nicotine [Habitrol] 21 mg TRDERM DAILY Patient's Own Medication [Ptom] 0 each PO DAILY Sertraline [Zoloft] 100 mg PO DAILY buPROPion [Wellbutrin XL] 150 mg PO DAILY 01/17/19 18:05 Acetaminophen/HYDROcodone [[place] 325-5 MG] 1 tab PO Q6H PRN 01/17/19 20:38 Temazepam [Restoril] 7.5 mg PO BEDTIME PRN 01/17/19 21:00 Pantoprazole [ProTONIX] 40 mg PO Q12HR Patient's Own Medication [Ptom] 0 each PO BEDTIME 01/18/19 07:00 Benzonatate [Tessalon Perles] 100 mg PO TID 01/18/19 09:00 Patient's Own Medication [Ptom] 45 each SUBCUT BID Remove Patch 1 ea TRDERM DAILY methylPREDNISolone Sod Succ [Solu-MEDROL] 40 mg IVPUSH BID 01/19/19 05:11 BASIC METABOLIC PANEL,BMP [CHEM] AM C-REACTIVE PROTEIN [CHEM] AM CBC WITH AUTO DIFF [HEME] AM MAGNESIUM [CHEM] AM 01/19/19 21:00 Remove Patch 1 ea TRDERM ONETIME ONE 01/20/19 05:11 BASIC METABOLIC PANEL,BMP [CHEM] AM C-REACTIVE PROTEIN [CHEM] AM CBC WITH AUTO DIFF [HEME] AM MAGNESIUM [CHEM] AM 01/21/19 05:11 BASIC METABOLIC PANEL,BMP [CHEM] AM C-REACTIVE PROTEIN [CHEM] AM CBC WITH AUTO DIFF [HEME] AM MAGNESIUM [CHEM] AM - Plan Plan:: Assessment: Acute: Bronchitis, Improved * Chest x-ray showed no acute pneumonia * Negative Mycoplasma and Influenza testing * Dextromethorphan/Guaifenesin for expectorant/cough suppression * Incentive Spirometry/Flutter Valve S/p Hypomagnesia * Magnesium levels of 1.6-->2.2 * Replace and monitor Permissive Hyperglycemia * Exacerbated by steroid; cut down steroid requirement * History of type 2 diabetes * She has not been getting her Tresiba * Adjust Insulin regimen Mild Hyperkalemia * K of 5.7 * Repeat lab in the evening Chronic: HTN, DM2, Asthma, COPD, Chronic Respiratory Failure, Back Pain, Gout, Migraines, Peripheral Neuropathy, Anxiety, Depression and Morbid Obesity Plan: She is clinically stable Routine AM Labs Continue home medication GI/DVT prophylaxis SW/CM for d/c planning Possible discharge in AM Code status: full Prognosis: Good
[2019-01-18] MEDS: Insulin Lispro 100 Units/ML 3 ML Vial SUBCUT SCH ×4 (08:53→21:12)
[2019-01-18] MEDS ORDERED: methylPREDNISolone Sodium Succinate 40 MG/1 ML SDV IVPUSH SCH (09:00)
[2019-01-18] MEDS ORDERED: BUPROPION 150 MG PO SCH (09:00)
[2019-01-18] MEDS ORDERED: ALLOPURINOL 300 MG PO SCH (09:31)
[2019-01-18] MEDS ORDERED: Sertraline 100 MG Tab PO SCH (09:33)
[2019-01-18] MEDS ORDERED: Furosemide 20 MG/2 ML VIAL IVPUSH ONE (09:47)
[2019-01-18] MEDS: MELOXICAM 15 MG PO SCH (09:50)
[2019-01-18] MEDS: TRESIBA U SUBCUT SCH ×2 (09:51→21:12)
[2019-01-18] MEDS: Pantoprazole 40 MG Tab.CR PO SCH ×2 (10:16→21:04)
[2019-01-18] MEDS: Aspirin 81 MG Tab.EC PO SCH (10:16)
[2019-01-18] MEDS: Nicotine 21 MG/24 Hr Patch TRDERM SCH (10:17)
[2019-01-18] MEDS: buPROPion 150 MG Tab.ER PO SCH (10:20)
[2019-01-18] MEDS: Allopurinol 300 MG Tab PO SCH (10:21)
[2019-01-18] MEDS: Sertraline 50 MG Tab PO SCH (10:21)
[2019-01-18] MEDS: Formoterol/Mometasone 200-5 MCG 8.8 GM Inhaler IH SCH ×2 (10:27→20:06)
[2019-01-18] MEDS: Albuterol/Ipratropium 3.0-0.5 MG/3 ML Neb Soln NEB PRN (15:37)
[2019-01-18] MEDS: glipiZIDE 10 MG Tab.ER PO SCH (17:24)
--- NOTE | 2019-01-18 19:52 | PCM.DCSUM1 ---
Discharge Summary - Hospital Course Free Text/Narrative:: Patient is a 68 year old female with past medical history positive for tobacco use, COPD and nephrolithiasis who presented to the ED for evaluation of a 2 day history shortness of breath, cough and posttussive emesis. The patient has had "cold" like symptoms for approximately a month, which include fevers and congesion. 2 days ago she began to feel worse. She described her breathing as "heavy", had worsening productive cough with yellow sputum, fatigue and nausea. She states that her throat is sore secondary to coughing, and she also has associated nasal congestion. Laying down worsens her symptoms. She has had no recent travel but does report that "everyone in her family is sick." She also complains of dull pain while urinating and difficulty urinating. She also reports increased frequency and urgency. She was evaluated in the ED on and found to have stones in the left kidney without signs of ureteral dilation. She does state that she has an upcoming appointment for her kidney stones. In the ED the patient underwent Chest Xray, CBC and CMP, UA and EKG. Chest Xray demonstrated no acute pneumonia. EKG demonstrated sinus tachycardia with borderline AV block. Patient was afebrile in the ED, and had a WBC count of 17.66, Hgb of 11.1, platelets of 286, eGFR of 45, Creatinine of 1.1, CRP of 1.8. Patient was mycoplasma and influenza negative. Patient was admitted to observation. Diagnosis: Stroke: No Modified Ganesh Scale: No Symptoms at All Modified Ganesh Scale Score: 0 - Discharge Data Discharge Date: 01/19/19 Discharge Disposition: Home, Self-Care 01 Condition: Good - Referral to Home Health Primary Care Physician: SAMIRA Herring - Patient Summary/Data Operative Procedure(s) Performed: None Complications: None Consults: Consultations 01/16/19 21:06 Consult to Case Management/Roping Machine Tender [CONS] Routine Consult to Spiritual Care [CONS] Routine OT Evaluation and Treatment [CONS] Routine PT Evaluation and Treatment [CONS] Routine Respiratory Care Assess and Treatment [CONS] Routine Labs Pending at D/C: None Recommended Follow-up Testing/Procedures: None Planned Operative Procedure(s) after DC: None Hospital Course: Patient was primarily admitted for Acute on Chronic Bronchitis. She has an underlying COPD and Chronic Respiratory Failure on 2L NC. However she continues to smoke cigarettes. Her labs were fairly unremarkable and her chest x-ray was negative for acute abnormal findings. She did receive appropriate treatment and she responded well to it. Her hospital course was uncomplicated and the rest of her chronic medical illness remained stable during her brief hospitalization. Once medically stable , she was then immediately released from the hospital. Patient was strongly advised to quit smoking and practice life style modifications. She was further advised to follow up with PCP in 1 week after discharge. - Patient Instructions Diet: Heart Healthy Diet, Usual Diet as Tolerated, Low Sodium, Diabetic Diet, Weight Loss Diet Activity: As Tolerated Driving: Do Not Drive Showering/Bathing: May Shower Notify Provider of: Fever, Increased Pain, Swelling and Redness, Nausea and/or Vomiting Other/Special Instructions: - Please resume routine home medications. - Continue home activity as tolerated. - Advised to quit smoking. - Call or follow up with your doctor for any concerns or issues after discharge. - Follow up with your doctor in 1 week. - Come back or seek immediate care should your symptoms persist or get worse - Discharge Plan *PRESCRIPTION DRUG MONITORING PROGRAM REVIEWED*: No *COPY OF PRESCRIPTION DRUG MONITORING REPORT IN PATIENT RUCHI: No Prescriptions/Med Rec: Benzonatate [Tessalon Perle] 100 mg PO TID PRN #21 capsule PRN Reason: Cough Suppressant Dextromethorphan/guaiFENesin [Robitussin DM] 10 ml PO Q4H PRN #20 cup PRN Reason: Cough Home Medications: Home Meds Allopurinol [Zyloprim] 300 mg PO DAILY 04/18/15 [History] Aspirin [Sacha Chewable Aspirin] 81 mg PO DAILY 04/18/15 [History] Lisinopril 10 mg PO DAILY 04/18/15 [History] Lovastatin 10 mg PO BEDTIME 04/18/15 [History] metFORMIN [Glucophage] 1,000 mg PO BIDMEALS 04/18/15 [History] Albuterol/Ipratropium [DuoNeb 3.0-0.5 MG/3 ML] 3 ml NEB Q6H PRN 06/28/17 [ History] Meloxicam [Mobic] 15 mg PO DAILY 06/28/17 [History] Insulin Degludec [Tresiba Flextouch U-200] 73 unit SQ DAILY 11/25/18 [History] Sertraline [Zoloft] 100 tab PO DAILY 04/29/18 [History] glipiZIDE [Glipizide ER] 10 mg PO BIDMEALS 04/29/18 [History] Fluticasone/Salmeterol [Advair 250-50 Diskus] 1 each IH BID #1 disk.w.dev [Rx] buPROPion [buPROPion XL] 150 mg PO DAILY 01/17/19 [History] Benzonatate [Tessalon Perle] 100 mg PO TID PRN #21 capsule 01/19/19 [Rx] Dextromethorphan/guaiFENesin [Robitussin DM] 10 ml PO Q4H PRN #20 cup 01/19/19 [ Rx] Oxygen Therapy Mode: Nasal Cannula Patient Handouts: Hyperglycemia, [id number], Home Oxygen Use, Adult, Acute Bronchitis, Adult, [id number], Steps to Quit Smoking Referrals: Lisandra Mazariegos PA-C [Primary Care Provider] - (Call clinic and make an appointment to follow up with Lisandra in 1 week.) - Discharge Summary/Plan Comment DC Time >30 min.: No Discharge Summary/Plan Comment: Discharge to Home Offered practical counseling on smoking cigarettes. She was counseled about the dangers of smoking and associated health risks. At this time she is not ready to quit but receptive to the idea of smoking cessation. Patient was provided reading materials or brochures to help when to quit smoking. She was advised to set a specific date, call the Quit line and follow up with his PCP when she is ready to quit. - General Info Date of Service: 01/19/19 Admission Dx/Problem (Free Text: Admission Diagnosis/Problem Admission Diagnosis/Problem Bronchitis Subjective Update: Follow Up Functional Status: Reports: Pain Controlled, Tolerating Diet, Ambulating, Urinating. Denies: New Symptoms - Review of Systems General: Denies: Fever, Weakness, Fatigue, Malaise, Chills HEENT: Reports: No Symptoms Pulmonary: Reports: Shortness of Breath (baseline), Cough Cardiovascular: Reports: Dyspnea on Exertion (baseline). Denies: Chest Pain, Lightheadedness Gastrointestinal: Denies: Abdominal Pain, Nausea, Vomiting Genitourinary: Reports: No Symptoms Musculoskeletal: Reports: No Symptoms Skin: Reports: No Symptoms Neurological: Denies: Confusion, Difficulty Walking, Weakness, Gait Disturbance Psychiatric: Denies: Depression, Mood Lability, Anxiety, Agitation, Hallucinations Systems Review Comment: No overnight or acute issues. She has no complaints this morning - Patient Data Vitals - Most Recent: Last Vital Signs Temp 36.8 C 01/18/19 16:15 Pulse 67 01/18/19 16:15 Resp 24 H 01/18/19 16:15 BP 136/84 01/18/19 16:15 Pulse Ox 92 L 01/18/19 16:15 Weight - Most Recent: 112.536 kg I&O - Last 24 hours: Intake & Output 01/18/19 01/18/19 01/18/19 06:59 14:59 22:59 Intake Total 800 240 800 Output Total 1200 1200 Balance -400 240 -400 Lab Results - Last 24 hrs: Laboratory Results - last 24 hr 01/17/19 01/18/19 01/18/19 Range/Units 21:01 04:13 04:13 WBC 10.12 H (3.98-10.04) K/mm3 RBC 3.94 L (3.98-5.22) M/mm3 Hgb 10.5 L (11.2-15.7) gm/dl Hct 34.1 (34.1-44.9) % MCV 86.5 (79.4-94.8) fl MCH 26.6 (25.6-32.2) pg MCHC 30.8 L (32.2-35.5) g/dl RDW Std Deviation 46.9 H (36.4-46.3) fL Plt Count 175 L (182-369) K/mm3 MPV 11.3 (9.4-12.3) fl Neut % (Auto) 86.9 H (34.0-71.1) % Lymph % (Auto) 6.5 L (19.3-51.7) % [place] % (Auto) 3.1 L (4.7-12.5) % Eos % (Auto) 3.0 (0.7-5.8) Baso % (Auto) 0.0 L (0.1-1.2) % Neut # (Auto) 8.80 H (1.56-6.13) K/mm3 Lymph # (Auto) 0.66 L (1.18-3.74) K/mm3 [place] # (Auto) 0.31 (0.24-0.36) K/mm3 Eos # (Auto) 0.30 (0.04-0.36) K/mm3 Baso # (Auto) 0.00 L (0.01-0.08) K/mm3 Manual Slide Review Abnormal smear Sodium 137 (136-145) mEq/L Potassium 5.7 H (3.5-5.1) mEq/L Chloride 104 (98-107) mEq/L Carbon Dioxide 23 (21-32) mEq/L Anion Gap 15.7 H (5-15) BUN 35 H (7-18) mg/dL Creatinine 1.3 H (0.55-1.02) mg/dL Est Cr Clr Drug Dosing 35.76 mL/min Estimated GFR (MDRD) 41 (>60) mL/min BUN/Creatinine Ratio 26.9 H (14-18) Glucose 359 H (80-115) mg/dL POC Glucose 329 H (80-115) mg/dL Calcium 8.5 (8.5-10.1) mg/dL Magnesium 2.2 (1.8-2.4) mg/dl C-Reactive Protein 1.6 H* (<1.0) mg/dL 01/18/19 01/18/19 01/18/19 Range/Units 06:58 11:29 17:11 WBC (3.98-10.04) K/mm3 RBC (3.98-5.22) M/mm3 Hgb (11.2-15.7) gm/dl Hct (34.1-44.9) % MCV (79.4-94.8) fl MCH (25.6-32.2) pg MCHC (32.2-35.5) g/dl RDW Std Deviation (36.4-46.3) fL Plt Count (182-369) K/mm3 MPV (9.4-12.3) fl Neut % (Auto) (34.0-71.1) % Lymph % (Auto) (19.3-51.7) % [place] % (Auto) (4.7-12.5) % Eos % (Auto) (0.7-5.8) Baso % (Auto) (0.1-1.2) % Neut # (Auto) (1.56-6.13) K/mm3 Lymph # (Auto) (1.18-3.74) K/mm3 [place] # (Auto) (0.24-0.36) K/mm3 Eos # (Auto) (0.04-0.36) K/mm3 Baso # (Auto) (0.01-0.08) K/mm3 Manual Slide Review Sodium (136-145) mEq/L Potassium (3.5-5.1) mEq/L Chloride (98-107) mEq/L Carbon Dioxide (21-32) mEq/L Anion Gap (5-15) BUN (7-18) mg/dL Creatinine (0.55-1.02) mg/dL Est Cr Clr Drug Dosing mL/min Estimated GFR (MDRD) (>60) mL/min BUN/Creatinine Ratio (14-18) Glucose (80-115) mg/dL POC Glucose 292 H 322 H 338 H (80-115) mg/dL Calcium (8.5-10.1) mg/dL Magnesium (1.8-2.4) mg/dl C-Reactive Protein (<1.0) mg/dL [place] Results - Last 24 hrs: Microbiology 01/16/19 17:10 Aerobic Blood Culture - Preliminary Blood - Venous NO GROWTH AFTER 2 DAYS Anaerobic Blood Culture - Final 01/16/19 17:20 Aerobic Blood Culture - Preliminary Blood - Venous - Lab Draw NO GROWTH AFTER 2 DAYS Anaerobic Blood Culture - Preliminary NO GROWTH AFTER 2 DAYS 01/16/19 16:25 Urine Culture - Final Urine, Voided MIXED LYNN SUGGESTIVE OF CONTAMINATION. 01/16/19 06:00 Gram Stain - Final Sputum - Expectorated Sputum Culture - Preliminary Med Orders - Current: Current Medications Acetaminophen (Tylenol) 650 mg PO Q4H PRN PRN Reason: Pain (Mild 1-3)/fever Last Admin: 01/17/19 17:11 Dose: 650 mg Hydrocodone Bitart/Acetaminophen (Adams 325-5 Mg) 1 tab PO Q6H PRN PRN Reason: pain Last Admin: 01/18/19 08:54 Dose: 1 tab Albuterol/Ipratropium (Duoneb 3.0-0.5 Mg/3 Ml) 3 ml NEB Q4H PRN PRN Reason: Shortness Of Breath/wheezing Last Admin: 01/18/19 15:37 Dose: 3 ml Aspirin (Halfprin) 81 mg PO DAILY [facility] Last Admin: 01/18/19 10:16 Dose: 81 mg Benzonatate (Tessalon Perles) 100 mg PO TID [facility] Last Admin: 01/18/19 16:16 Dose: 100 mg Bisacodyl (Dulcolax) 5 mg PO DAILY PRN PRN Reason: Constipation Dextrose/Water (Dextrose 50% In Water) 50 ml IVPUSH ASDIRECTED PRN PRN Reason: Hypoglycemia Docusate Sodium (Colace) 100 mg PO BID PRN PRN Reason: Constipation Guaifenesin/Phenylephrine HCl (Robitussin Dm) 10 ml PO Q4H PRN PRN Reason: Cough Hydromorphone HCl (Dilaudid) 0.25 mg IVPUSH Q2H PRN PRN Reason: Pain (severe 7-10) Last Admin: 01/17/19 17:17 Dose: 0.25 mg Promethazine HCl 6.25 mg/ (Sodium Chloride) 50.25 mls @ 100 mls/hr IV Q6H PRN PRN Reason: Nausea/Vomiting Insulin Human Lispro (Humalog) 0 unit SUBCUT QIDACANDBED [facility]; Protocol Last Admin: 01/18/19 17:21 Dose: 12 units Miscellaneous Information (Remove Patch) 1 ea TRDERM ONETIME ONE Stop: 01/19/19 21:01 Miscellaneous Information (Remove Patch) 1 ea TRDERM DAILY [facility] Last Admin: 01/18/19 09:53 Dose: 1 ea Mometasone Furoate/Formoterol Fumar (Dulera 200-5 Mcg) 2 puff IH BIDRT [facility] Last Admin: 01/18/19 10:27 Dose: 2 puff Nicotine (Habitrol) 21 mg TRDERM DAILY [facility] Last Admin: 01/18/19 10:17 Dose: 21 mg Ondansetron HCl (Zofran) 4 mg IV Q6H PRN PRN Reason: Nausea/Vomiting Oxymetazoline HCl (Nasal Decongestant [place]) 0 ml DEE Q12HR PRN PRN Reason: Congestion Last Admin: 01/16/19 22:44 Dose: 1 spray Pantoprazole Sodium (Protonix) 40 mg PO Q12HR [facility] Last Admin: 01/18/19 10:16 Dose: 40 mg Lovastatin 10 Mg (Ptom) 0 each PO BEDTIME [facility] Last Admin: 01/17/19 21:37 Dose: 1 each Meloxicam 15 Mg (Ptom) 0 each PO DAILY [facility] Last Admin: 01/18/19 09:50 Dose: 1 each Tresiba Flextouch U- (200 Own Med) 0 each SUBCUT BID [facility] Last Admin: 01/18/19 09:51 Dose: 45 each Glipizide 10 Mg Tab. (Er) 0 each PO BIDMEALS [facility] Last Admin: 01/18/19 17:24 Dose: 1 each Allopurinol 300 Mg (Tab.) 0 each PO DAILY [facility] Sertraline 100 Mg (Tab) 0 each PO DAILY [facility] Bupropion 150 Mg Tab (.Er.) 0 each PO DAILY [facility] Polyethylene Glycol (Miralax) 17 gm PO DAILY PRN PRN Reason: Constipation Prednisone (Prednisone) 40 mg PO WITHBREAKFAST [facility] Senna/Docusate Sodium (Senna Plus) 1 tab PO BID PRN PRN Reason: Constipation Sodium Chloride (Saline Flush) 10 ml FLUSH ASDIRECTED PRN PRN Reason: Keep Vein Open Temazepam (Restoril) 7.5 mg PO BEDTIME PRN PRN Reason: Sleep Last Admin: 01/17/19 21:36 Dose: 7.5 mg Discontinued Medications Acetaminophen (Tylenol) 650 mg PO NOW ONE Stop: 01/16/19 18:41 Last Admin: 01/16/19 19:05 Dose: 650 mg Albuterol (Proventil Neb Soln) 2.5 mg NEB ONETIME ONE Stop: 01/16/19 18:26 Last Admin: 01/16/19 20:04 Dose: 2.5 mg Albuterol/Ipratropium (Duoneb 3.0-0.5 Mg/3 Ml) 3 ml NEB ONETIME ONE Stop: 01/16/19 16:21 Last Admin: 01/16/19 16:28 Dose: 3 ml Allopurinol (Zyloprim) 300 mg PO DAILY [facility] Last Admin: 01/18/19 10:21 Dose: Not Given Benzonatate (Tessalon Perles) 100 mg PO BID [facility] Last Admin: 01/17/19 08:01 Dose: 100 mg Benzonatate (Tessalon Perles) 100 mg PO ONETIME ONE Stop: 01/16/19 21:13 Last Admin: 01/16/19 22:17 Dose: 100 mg Bupropion HCl (Wellbutrin Xl) 150 mg PO DAILY [facility] Last Admin: 01/18/19 10:20 Dose: Not Given Furosemide (Lasix) 10 mg IVPUSH NOW ONE Stop: 01/18/19 09:48 Last Admin: 01/18/19 10:16 Dose: 10 mg Glipizide (Glucotrol Xl) 10 mg PO BIDMEALS [facility] Last Admin: 01/18/19 06:59 Dose: 10 mg Ceftriaxone Sodium 2 gm/ (Sodium Chloride) 100 mls @ 200 mls/hr IV NOW STA Stop: 01/16/19 18:54 Last Admin: 01/16/19 19:56 Dose: 200 mls/hr Sodium Chloride (Normal Saline) 1,000 mls @ 100 mls/hr IV ASDIRECTED [facility] Last Admin: 01/16/19 19:55 Dose: 100 mls/hr Magnesium Sulfate 2 gm/ Premix 50 mls @ 25 mls/hr IV ONETIME ONE Stop: 01/17/19 15:41 Last Admin: 01/17/19 15:12 Dose: 25 mls/hr Methylprednisolone Sodium Succinate (Solu-Medrol) 40 mg IVPUSH Q6H [facility] Last Admin: 01/18/19 04:44 Dose: 40 mg Methylprednisolone Sodium Succinate (Solu-Medrol) 40 mg IVPUSH BID [facility] Last Admin: 01/18/19 10:17 Dose: 40 mg Non-Formulary Medication (Albuterol/Ipratropium [Duoneb 3.0-0.5 Mg/3 Ml]) 3 ml INH QID [facility] Non-Formulary Medication (Bupropion [Bupropion Xl]) 150 mg PO DAILY [facility] Pantoprazole Sodium (Protonix Iv) 40 mg IV Q12HR [facility] Last Admin: 01/17/19 08:02 Dose: 40 mg Tresiba Flextouch U- (200 Ptom) 0 each SUBCUT DAILY [facility] Last Admin: 01/17/19 10:19 Dose: Not Given Scopolamine (Transderm-Scop) 1.5 mg TRDERM Q72H ONE Stop: 01/16/19 21:13 Last Admin: 01/16/19 22:16 Dose: 1.5 mg Sertraline HCl (Zoloft) 100 mg PO DAILY [facility] Last Admin: 01/18/19 10:21 Dose: Not Given - Exam Quality Assessment: Reports: Supplemental Oxygen General: Reports: Alert, Oriented, Cooperative, No Acute Distress, Other ( Morbidly Obese) HEENT: Reports: Pupils Equal, Pupils Reactive, EOMI, Mucous Membr. Moist/[place] Neck: Reports: Supple Lungs: Reports: Clear to Auscultation, Normal Respiratory Effort Cardiovascular: Reports: Regular Rate, Regular Rhythm GI/Abdominal Exam: Normal Bowel Sounds, Soft, Non-Tender, No Organomegaly, No Distention, No Abnormal Bruit, No Mass (Female) Exam: Deferred Rectal (Female) Exam: Deferred Back Exam: Reports: Normal Inspection, Decreased Range of Motion Extremities: Normal Inspection, Non-Tender, No Pedal Edema, Normal Capillary Refill Skin: Reports: Warm, Dry, Intact Neurological: Reports: No New Focal Deficit, Normal Gait Psy/Mental Status: Reports: Alert, Normal Affect, Normal Mood
[2019-01-18] MEDS: LOVASTATIN 10 MG PO SCH (21:05)
[2019-01-18] MEDS: Temazepam 7.5 MG Cap PO PRN (21:05)
[2019-01-18] MEDS ORDERED: Insulin Glarg,Human.Rec.Analog 100 UNIT/ML ML SUBCUT SCH (22:00)
[2019-01-19] MEDS: Acetaminophen 325 MG Tab PO PRN (04:12)
[2019-01-19] MEDS: Formoterol/Mometasone 200-5 MCG 8.8 GM Inhaler IH SCH (06:30)
[2019-01-19] MEDS: glipiZIDE 10 MG Tab.ER PO SCH (06:45)
[2019-01-19] MEDS ORDERED: predniSONE 20 MG Tab PO SCH (07:00)
[2019-01-19] MEDS: Benzonatate 100 MG Cap PO SCH (08:19)
[2019-01-19] MEDS: Aspirin 81 MG Tab.EC PO SCH (08:19)
[2019-01-19] MEDS: Pantoprazole 40 MG Tab.CR PO SCH (08:19)
[2019-01-19] MEDS: Insulin Lispro 100 Units/ML 3 ML Vial SUBCUT SCH ×2 (08:19→11:39)
[2019-01-19] MEDS: Nicotine 21 MG/24 Hr Patch TRDERM SCH (08:20)
[2019-01-19] MEDS: MELOXICAM 15 MG PO SCH (08:23)
[2019-01-19] MEDS ORDERED: BUPROPION 150 MG PO SCH (09:00)
[2019-01-19] MEDS ORDERED: Insulin Glarg,Human.Rec.Analog 100 UNIT/ML ML SUBCUT SCH (09:00)
[2019-01-19 14:41] VITALS: BP 108/50; PULSE 65
--- NOTE | 2019-01-20 06:30 | CR ---
Chest: Portable view of the chest was obtained. Comparison: Prior chest x-ray of 11/30/18. Heart size and mediastinum are within normal limits for portable technique. Lungs are clear with no acute parenchymal change. Bony structures are grossly intact. Impression: 1. Nothing acute is appreciated on portable chest x-ray. Diagnostic code #1
== END 2019-01-19 13:10 | disposition home or self-care (01) ==
LOC: JD.ED 14:09 → JD.MS 20:21
PROVIDERS: ADMIT Internal Medicine; ATTEND Internal Medicine
DX: J20.9 Acute bronchitis, unspecified (principal); E83.42 Hypomagnesemia; E11.65 Type 2 diabetes mellitus with hyperglycemia; I10 Essential (primary) hypertension; J44.9 Chronic obstructive pulmonary disease, unspecified; E78.00 Pure hypercholesterolemia, unspecified; M10.9 Gout, unspecified; G43.909 Migraine, unspecified, not intractable, without status migrainosus; E11.40 Type 2 diabetes mellitus with diabetic neuropathy, unspecified; F41.9 Anxiety disorder, unspecified; F32.9 Major depressive disorder, single episode, unspecified; F17.210 Nicotine dependence, cigarettes, uncomplicated; Z88.1 Allergy status to other antibiotic agents; Z88.8 Allergy status to other drugs, medicaments and biological substances; Z79.899 Other long term (current) drug therapy; Z79.82 Long term (current) use of aspirin; Z79.84 Long term (current) use of oral hypoglycemic drugs
CPT/HCPCS: 36415; 71045; 80048; 80053; 81001; 82962; 83605; 83735; 85025; 86140; 86738; 87040; 87070; 87086; 87205; 87804; 93005; 94640; 94760; 94761; 96365; 97161; 97165; 99285; A9270; C9113; J0696; J1170; J1815; J2920; J3475; J7030; J7040; 96366; 96367; 96375; 96376; G0378; J7620-GY

== ENCOUNTER 2019-04-26 11:31 | Emergency (ER) | payer MEDICARE, MEDICAID ==
[2019-04-26 11:44] VITALS: BP 136/60
[2019-04-26] MEDS ORDERED: Ketorolac 30 MG/ML SDV IVPUSH ONE ×2 (12:05→12:07)
[2019-04-26] MEDS ORDERED: Sodium Chloride 0.9% 10 ML Syringe FLUSH PRN (12:05)
[2019-04-26] MEDS ORDERED: Acetaminophen 325 MG Tab PO ONE (12:07)
[2019-04-26] MEDS ORDERED: Albuterol/Ipratropium 3.0-0.5 MG/3 ML Neb Soln NEB ONE (12:10)
--- NOTE | 2019-04-26 12:13 | EDM.PDOC ---
ED HPI GENERAL MEDICAL PROBLEM - General Chief Complaint: Respiratory Problem Stated Complaint: SOB Time Seen by Provider: 04/26/19 11:42 Source of Information: Reports: Patient History Limitations: Reports: No Limitations - History of Present Illness INITIAL COMMENTS - FREE TEXT/NARRATIVE: Patient is a 69-year-old female who presents with complaints of productive cough , sore throat, headache, shortness of breath and body aches over the course of the last week. Patient has a history of COPD and did recently start smoking again approximately 1 month ago. Dates that her daughter was recently sick with what she believes was influenza and her grand kids have been sick off and on for recently. She is unsure if she got an influenza vaccination this year. She states she has had some nausea and diarrhea but no vomiting. Denies having a known fever. He states that she is out of her DuoNeb solution so she has not been doing neb treatments at home. She has been using her Advair maintenance inhaler. - Related Data Allergies Allergy/AdvReac Type Severity Reaction Status Date / Time insulin detemir Allergy Mild Itching Verified 01/16/19 15:00 [From Levemir] doxycycline Allergy Swelling Verified 01/16/19 15:00 Home Meds: Home Meds Allopurinol [Zyloprim] 300 mg PO DAILY 04/18/15 [History] Aspirin [Sacha Chewable Aspirin] 81 mg PO DAILY 04/18/15 [History] Lisinopril 10 mg PO DAILY 04/18/15 [History] Lovastatin 10 mg PO BEDTIME 04/18/15 [History] metFORMIN [Glucophage] 1,000 mg PO BIDMEALS 04/18/15 [History] Albuterol/Ipratropium [DuoNeb 3.0-0.5 MG/3 ML] 3 ml NEB Q6H PRN 06/28/17 [ History] Meloxicam [Mobic] 15 mg PO DAILY 06/28/17 [History] Insulin Degludec [Tresiba Flextouch U-200] 73 unit SQ DAILY 03/24/18 [History] Sertraline [Zoloft] 100 tab PO DAILY 04/29/18 [History] glipiZIDE [Glipizide ER] 10 mg PO BIDMEALS 04/29/18 [History] Fluticasone/Salmeterol [Advair 250-50 Diskus] 1 each IH BID #1 disk.w.dev [Rx] buPROPion [buPROPion XL] 150 mg PO DAILY 01/17/19 [History] Benzonatate [Tessalon Perle] 100 mg PO TID PRN #21 capsule 01/19/19 [Rx] Dextromethorphan/guaiFENesin [Robitussin DM] 10 ml PO Q4H PRN #20 cup 01/19/19 [ Rx] Albuterol/Ipratropium [DuoNeb 3.0-0.5 MG/3 ML] 3 ml .XX Q4H PRN #20 neb [Rx] Azithromycin [Zithromax] 250 mg PO DAILY 4 Days #4 tab 04/26/19 [Rx] Benzonatate [Tessalon Perle] 100 mg PO TID PRN #21 capsule 04/26/19 [Rx] predniSONE [Prednisone] 20 mg PO BID 5 Days #9 tablet 04/26/19 [Rx] Past Medical History HEENT History: Reports: Impaired Vision, Retinal Detachment 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: Musculoskeletal History: Reports: Back Pain, Chronic, Gout, Other (See Below) Other Musculoskeletal History: Right knee pain Neurological History: Reports: Migraines, Neuropathy, Diabetic Psychiatric History: Reports: Anxiety, Depression Endocrine/Metabolic History: Reports: Diabetes, Type II Hematologic History: Reports: None Immunologic History: Reports: None Oncologic (Cancer) History: Reports: None Dermatologic History: Reports: None - Infectious Disease History Infectious Disease History: Reports: Chicken Pox, Measles, Mumps - Past Surgical History Head Surgeries/Procedures: Reports: None HEENT Surgical History: Reports: Eye Surgery, Other (See Below) Other HEENT Surgeries/Procedures: retinal detachment surgery x2. Cardiovascular Surgical History: Reports: None Respiratory Surgical History: Reports: None GI Surgical History: Reports: Appendectomy, Cholecystectomy Female Surgical History: Reports: Hysterectomy, Lithotripsy/ESWL Endocrine Surgical History: Reports: None Neurological Surgical History: Reports: None Musculoskeletal Surgical History: Reports: Other (See Below) Other Musculoskeletal Surgeries/Procedures:: knee sx bilaterally Oncologic Surgical History: Reports: None Dermatological Surgical History: Reports: None Social & Family History - Family History Family Medical History: Noncontributory Endocrine/Metabolic: Reports: Diabetes, type II - Tobacco Use Smoking Status *Q: Current Every Day Smoker Years of Tobacco use: 40 Packs/Tins Daily: 1.5 - Caffeine Use Caffeine Use: Reports: Soda Other Caffeine Use: diet pepsi - Recreational Drug Use Recreational Drug Use: Yes Drug Use in Last 12 Months: No Recreational Drug Type: Reports: Cocaine, Marijuana/Hashish Recreational Drug Use Frequency: Not Used In Over 1 Year - Living Situation & Occupation Living situation: Reports: Single Occupation: Retired ED ROS GENERAL - Review of Systems Review Of Systems: See Below Constitutional: Denies: Fever, Chills HEENT: Reports: Ear Pain, Rhinitis, Throat Pain Respiratory: Reports: Shortness of Breath, Wheezing, Cough, Sputum Cardiovascular: Reports: Dyspnea on Exertion. Denies: Chest Pain, Lightheadedness Endocrine: Reports: No Symptoms GI/Abdominal: Reports: Diarrhea, Nausea. Denies: Abdominal Pain, Vomiting : Reports: No Symptoms Musculoskeletal: Reports: Other (generalized body aches) Skin: Reports: No Symptoms Neurological: Reports: Headache. Denies: Dizziness Psychiatric: Reports: No Symptoms Hematologic/Lymphatic: Reports: No Symptoms Immunologic: Reports: No Symptoms ED EXAM, GENERAL - Physical Exam Exam: See Below Exam Limited By: No Limitations General Appearance: Alert, WD/WN, No Apparent Distress Ears: Normal External Exam, Normal Canal, Hearing Grossly Normal, Normal TMs Nose: Normal Inspection, Clear Rhinorrhea Throat/Mouth: Normal Inspection, Normal Oropharynx, Normal Voice, No Airway Compromise Head: Atraumatic, Normocephalic Neck: Normal Inspection, Supple, Non-Tender Respiratory/Chest: No Respiratory Distress, No Accessory Muscle Use, Chest Non- Tender, Decreased Breath Sounds, Wheezing (throughout) Cardiovascular: Normal Peripheral Pulses, Regular Rate, Rhythm, No Edema, No Murmur GI/Abdominal: Normal Bowel Sounds, Soft, Non-Tender, No Distention Neurological: Alert, Oriented, Normal Cognition Psychiatric: Normal Affect, Normal Mood Skin Exam: Warm, Dry, Intact, Normal Color, No Rash Lymphatic: No Adenopathy Course - Vital Signs Last Recorded V/S: Last Vital Signs Temp 98.6 F 04/26/19 11:41 Pulse 73 04/26/19 12:59 Resp 20 04/26/19 11:41 BP 136/60 04/26/19 11:41 Pulse Ox 96 04/26/19 11:41 - Orders/Labs/Meds Orders: Active Orders 24 hr Category Date Time Status Peripheral IV Care [RC] . DIRECTED Care 04/26/19 12:05 Active RT Aerosol Therapy [RC] ASDIRECTED Care 04/26/19 12:10 Active Chest 2V [CR] Stat Exams 04/26/19 12:04 Taken Sodium Chloride 0.9% [Saline Flush] Med 04/26/19 12:05 Active 10 ml FLUSH ASDIRECTED PRN Peripheral IV Insertion Adult [OM.PC] Stat Oth 04/26/19 12:04 Ordered Medication Orders Sodium Chloride (Saline Flush) 10 ml FLUSH ASDIRECTED PRN PRN Reason: Keep Vein Open Last Admin: 04/26/19 12:32 Dose: 10 ml Labs: Laboratory Tests 04/26/19 04/26/19 Range/Units 12:25 12:25 WBC 9.64 (3.98-10.04) K/mm3 RBC 3.45 L (3.98-5.22) M/mm3 Hgb 9.5 L (11.2-15.7) gm/dl Hct 31.4 L (34.1-44.9) % MCV 91.0 D (79.4-94.8) fl MCH 27.5 (25.6-32.2) pg MCHC 30.3 L (32.2-35.5) g/dl RDW Std Deviation 51.4 H (36.4-46.3) fL Plt Count 201 (182-369) K/mm3 MPV 9.7 (9.4-12.3) fl Neut % (Auto) 69.5 (34.0-71.1) % Lymph % (Auto) 20.1 (19.3-51.7) % [place] % (Auto) 5.4 (4.7-12.5) % Eos % (Auto) 4.6 (0.7-5.8) Baso % (Auto) 0.1 (0.1-1.2) % Neut # (Auto) 6.70 H (1.56-6.13) K/mm3 Lymph # (Auto) 1.94 (1.18-3.74) K/mm3 [place] # (Auto) 0.52 H (0.24-0.36) K/mm3 Eos # (Auto) 0.44 H (0.04-0.36) K/mm3 Baso # (Auto) 0.01 (0.01-0.08) K/mm3 Sodium 143 (136-145) mEq/L Potassium 4.6 (3.5-5.1) mEq/L Chloride 109 H (98-107) mEq/L Carbon Dioxide 25 (21-32) mEq/L Anion Gap 13.6 (5-15) BUN 29 H (7-18) mg/dL Creatinine 1.3 H (0.55-1.02) mg/dL Est Cr Clr Drug Dosing 35.27 mL/min Estimated GFR (MDRD) 41 (>60) mL/min BUN/Creatinine Ratio 22.3 H (14-18) Glucose 143 H (80-115) mg/dL Calcium 9.0 (8.5-10.1) mg/dL Total Bilirubin 0.2 (0.2-1.0) mg/dL AST 17 (15-37) U/L ALT 31 (14-59) U/L Alkaline Phosphatase 84 (46-116) U/L C-Reactive Protein 1.1 H* (<1.0) mg/dL Total Protein 6.6 (6.4-8.2) g/dl Albumin 3.3 L (3.4-5.0) g/dl Globulin 3.3 gm/dL Albumin/Globulin Ratio 1.0 (1-2) Meds: Medications Generic Name Dose Route Start Last Admin Trade Name Freq PRN Reason Stop Dose Admin Sodium Chloride 10 ml 04/26/19 12:05 04/26/19 12:32 Saline Flush FLUSH 10 ml ASDIRECTED PRN Administration Keep Vein Open Discontinued Medications Generic Name Dose Route Start Last Admin Trade Name Freq PRN Reason Stop Dose Admin Acetaminophen 975 mg 04/26/19 12:07 04/26/19 12:32 Tylenol PO 04/26/19 12:08 975 mg NOW ONE Administration Albuterol/Ipratropium 3 ml 04/26/19 12:10 04/26/19 12:58 Duoneb 3.0-0.5 Mg/3 Ml NEB 04/26/19 12:11 3 ml ONETIME ONE Administration Azithromycin 500 mg 04/27/19 13:23 Zithromax PO 04/27/19 13:24 ONETIME ONE Azithromycin 500 mg 04/26/19 13:23 04/26/19 13:59 Zithromax PO 04/26/19 13:24 Not Given ONETIME ONE Ketorolac Tromethamine 30 mg 04/26/19 12:05 04/26/19 12:34 Toradol IVPUSH 04/26/19 12:06 Not Given ONETIME ONE Ketorolac Tromethamine 15 mg 04/26/19 12:07 04/26/19 12:34 Toradol IVPUSH 04/26/19 12:08 15 mg ONETIME ONE Administration Prednisone 20 mg 04/26/19 13:24 04/26/19 13:58 Prednisone PO 04/26/19 13:25 20 mg ONETIME ONE Administration - Re-Assessments/Exams Free Text/Narrative Re-Assessment/Exam: 04/26/19 13:27 Lab work showed hemoglobin was decreased and BUN and creatinine were slightly increased. CRP was minimally elevated. WBC were normal. Chest x-ray does show density in the left lower lobe, however that has been present on previous x- rays and was read as scarring by the radiologist. Influenza swab was negative. Patient did have some relief with the DuoNeb treatment and her oxygen saturation has been 93-97% on room air. I will treat this as a COPD exacerbation and acute bronchitis. She'll be started on Zithromax, prednisone, DuoNeb's, and Tessalon Perles. First dose of Zithromax and prednisone will be given in the ER. Patient does have a nebulizer machine at home. Discharge instructions as noted Departure - Departure Time of Disposition: 13:28 Disposition: Home, Self-Care 01 Condition: Fair Clinical Impression: Acute exacerbation of chronic obstructive pulmonary disease (COPD) Acute bronchitis Qualifiers: Bronchitis organism: unspecified organism Qualified Code(s): J20.9 - Acute bronchitis, unspecified - Discharge Information *PRESCRIPTION DRUG MONITORING PROGRAM REVIEWED*: No *COPY OF PRESCRIPTION DRUG MONITORING REPORT IN PATIENT RUCHI: No Prescriptions: Albuterol/Ipratropium [DuoNeb 3.0-0.5 MG/3 ML] 3 ml .XX Q4H PRN #20 neb PRN Reason: Shortness Of Breath Azithromycin [Zithromax] 250 mg PO DAILY 4 Days #4 tab Benzonatate [Tessalon Perle] 100 mg PO TID PRN #21 capsule PRN Reason: Cough predniSONE [Prednisone] 20 mg PO BID 5 Days #9 tablet Instructions: Chronic Obstructive Pulmonary Disease, [id number], Acute Bronchitis, Adult, [id number] Referrals: Prerna Mccarthy MD [Primary Care Provider] - Forms: ED Department Discharge Additional Instructions: You were seen in the emergency Department today for cough, shortness of breath, headache, and body aches. There were no signs of pneumonia and influenza screen was negative. You have been diagnosed with a COPD exacerbation as well as acute bronchitis. Prescriptions for azithromycin which is an antibiotic, DuoNeb for shortness of breath, Tessalon Perles for cough, and prednisone for inflammation. Take these medications as prescribed. These medications have been sent to [facility] in [facility] because [facility] is currently closed. Recommend that that you rest and ensure adequate fluid intake. You experience any new or worsening symptoms, please do not hesitate to return to the emergency department. Sepsis Event Note - Evaluation Sepsis Screening Result: No Definite Risk - Focused Exam Vital Signs: Vital Signs Temp Pulse Resp BP Pulse Ox 04/26/19 12:59 73 04/26/19 11:41 98.6 F 77 20 136/60 96 Date Exam was Performed: 04/26/19 Time Exam was Performed: 14:16 - My Orders Last 24 Hours: My Active Orders 04/26/19 12:04 Chest 2V [CR] Stat Peripheral IV Insertion Adult [OM.PC] Stat 04/26/19 12:05 Peripheral IV Care [RC] . DIRECTED Sodium Chloride 0.9% [Saline Flush] 10 ml FLUSH ASDIRECTED PRN 04/26/19 12:10 RT Aerosol Therapy [RC] ASDIRECTED - Assessment/Plan Last 24 Hours: My Active Orders 04/26/19 12:04 Chest 2V [CR] Stat Peripheral IV Insertion Adult [OM.PC] Stat 04/26/19 12:05 Peripheral IV Care [RC] . DIRECTED Sodium Chloride 0.9% [Saline Flush] 10 ml FLUSH ASDIRECTED PRN 04/26/19 12:10 RT Aerosol Therapy [RC] ASDIRECTED
[2019-04-26 13:00] VITALS: PULSE 73
[2019-04-26] MEDS ORDERED: Azithromycin 250 MG Tab PO ONE (13:23)
[2019-04-26] MEDS ORDERED: predniSONE 20 MG Tab PO ONE (13:24)
[2019-04-27] MEDS ORDERED: Azithromycin 250 MG Tab PO ONE (13:23)
--- NOTE | 2019-04-28 07:12 | CR ---
Chest: Two views of the chest were obtained. Comparison: Prior chest x-ray of 01/16/19. Heart size and mediastinum are normal. Slight parenchymal density is seen within the left base as well as mild increased lung markings within the right base. Findings most likely represent a combination of bronchitis and atelectasis. Lungs otherwise are clear. Bony structures appear within normal limits. Surgical clips are seen within the upper abdomen. Impression: 1. Possible bibasilar bronchitis with atelectasis. Diagnostic code #3 This report was dictated in [place] Standard Time
== END 2019-04-26 14:00 | disposition home or self-care (01) ==
LOC: JD.ED 11:31
DX: J44.0 Chronic obstructive pulmonary disease with (acute) lower respiratory infection (principal); J20.9 Acute bronchitis, unspecified; J44.1 Chronic obstructive pulmonary disease with (acute) exacerbation; F17.210 Nicotine dependence, cigarettes, uncomplicated; F32.9 Major depressive disorder, single episode, unspecified; F41.9 Anxiety disorder, unspecified; E11.40 Type 2 diabetes mellitus with diabetic neuropathy, unspecified; M10.9 Gout, unspecified; Z79.4 Long term (current) use of insulin; Z79.899 Other long term (current) drug therapy; Z99.81 Dependence on supplemental oxygen; Z88.1 Allergy status to other antibiotic agents
CPT/HCPCS: 36415; 71046; 80053; 85025; 86140; 87804; 94640; 96374; 99284; A9270; J1885; J7620-GY

== ENCOUNTER 2019-05-17 09:33 | Emergency (ER) | payer MEDICARE, MEDICAID ==
[2019-05-17 09:51] VITALS: BP 140/78; PULSE 109
[2019-05-17] MEDS ORDERED: Acetaminophen/HYDROcodone 325-5 MG Tab PO ONE (10:14)
[2019-05-17] MEDS ORDERED: Albuterol/Ipratropium 3.0-0.5 MG/3 ML Neb Soln NEB ONE (10:14)
--- NOTE | 2019-05-17 11:31 | EDM.PDOC ---
ED HPI GENERAL MEDICAL PROBLEM - General Chief Complaint: Respiratory Problem Stated Complaint: SOB Time Seen by Provider: 05/17/19 09:53 Source of Information: Reports: Patient History Limitations: Reports: No Limitations - History of Present Illness INITIAL COMMENTS - FREE TEXT/NARRATIVE: The patient presents with bilateral rib pain. This has been going on for a few days. She has been coughing for awhile. She saw Dr Mccarthy yesterday and Dr Mccarthy did do some labs and a CT of her chest. She did not hear the results of the CT. The patient has no fever, chills, shortness of breath, abdominal pain, nausea or vomiting. Onset: Gradual Duration: Day(s): Location: Reports: Chest Quality: Reports: Sharp Severity: Moderate Improves with: Reports: Immobilization Worsens with: Reports: Breathing, Movement Associated Symptoms: Reports: Chest Pain, Cough. Denies: Fever/Chills, Headaches, Nausea/Vomiting, Shortness of Breath Bilateral Chest Pain Score (Numeric/FACES): 7 - Related Data Allergies Allergy/AdvReac Type Severity Reaction Status Date / Time insulin detemir Allergy Mild Itching Verified 05/17/19 09:51 [From Levemir] doxycycline Allergy Swelling Verified 05/17/19 09:51 Home Meds: Home Meds Allopurinol [Zyloprim] 300 mg PO DAILY 04/18/15 [History] Aspirin [Sacha Chewable Aspirin] 81 mg PO DAILY 04/18/15 [History] Lisinopril 10 mg PO DAILY 04/18/15 [History] Lovastatin 10 mg PO BEDTIME 04/18/15 [History] metFORMIN [Glucophage] 1,000 mg PO BIDMEALS 04/18/15 [History] Albuterol/Ipratropium [DuoNeb 3.0-0.5 MG/3 ML] 3 ml NEB Q6H PRN 06/28/17 [ History] Meloxicam [Mobic] 15 mg PO DAILY 06/28/17 [History] Insulin Degludec [Tresiba Flextouch U-200] 73 unit SQ DAILY 03/24/18 [History] Sertraline [Zoloft] 100 tab PO DAILY 04/29/18 [History] glipiZIDE [Glipizide ER] 10 mg PO BIDMEALS 04/29/18 [History] Fluticasone/Salmeterol [Advair 250-50 Diskus] 1 each IH BID #1 disk.w.dev [Rx] buPROPion [buPROPion XL] 150 mg PO DAILY 01/17/19 [History] Benzonatate [Tessalon Perle] 100 mg PO TID PRN #21 capsule 01/19/19 [Rx] Dextromethorphan/guaiFENesin [Robitussin DM] 10 ml PO Q4H PRN #20 cup 01/19/19 [ Rx] Albuterol/Ipratropium [DuoNeb 3.0-0.5 MG/3 ML] 3 ml .XX Q4H PRN #20 neb [Rx] Azithromycin [Zithromax] 250 mg PO DAILY 4 Days #4 tab 04/26/19 [Rx] Benzonatate [Tessalon Perle] 100 mg PO TID PRN #21 capsule 04/26/19 [Rx] predniSONE [Prednisone] 20 mg PO BID 5 Days #9 tablet 04/26/19 [Rx] Hydrocodone/Acetaminophen [Hydrocodon-Acetaminophen 5-325] 1 - 2 each PO Q6HR PRN #20 tablet 05/17/19 [Rx] Past Medical History HEENT History: Reports: Impaired Vision, Retinal Detachment 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: Musculoskeletal History: Reports: Back Pain, Chronic, Gout, Other (See Below) Other Musculoskeletal History: Right knee pain Neurological History: Reports: Migraines, Neuropathy, Diabetic Psychiatric History: Reports: Anxiety, Depression Endocrine/Metabolic History: Reports: Diabetes, Type II Hematologic History: Reports: None Immunologic History: Reports: None Oncologic (Cancer) History: Reports: None Dermatologic History: Reports: None - Infectious Disease History Infectious Disease History: Reports: Chicken Pox, Measles, Mumps - Past Surgical History Head Surgeries/Procedures: Reports: None HEENT Surgical History: Reports: Eye Surgery, Other (See Below) Other HEENT Surgeries/Procedures: retinal detachment surgery x2. Cardiovascular Surgical History: Reports: None Respiratory Surgical History: Reports: None GI Surgical History: Reports: Appendectomy, Cholecystectomy Female Surgical History: Reports: Hysterectomy, Lithotripsy/ESWL Endocrine Surgical History: Reports: None Neurological Surgical History: Reports: None Musculoskeletal Surgical History: Reports: Other (See Below) Other Musculoskeletal Surgeries/Procedures:: knee sx bilaterally Oncologic Surgical History: Reports: None Dermatological Surgical History: Reports: None Social & Family History - Family History Family Medical History: Noncontributory Endocrine/Metabolic: Reports: Diabetes, type II - Tobacco Use Smoking Status *Q: Former Smoker Used Tobacco, but Quit: Yes Month/Year Tobacco Last Used: 2009 - Caffeine Use Caffeine Use: Reports: Coffee Other Caffeine Use: diet pepsi - Living Situation & Occupation Living situation: Reports: Single Occupation: Retired ED ROS GENERAL - Review of Systems Review Of Systems: See Below Constitutional: Reports: No Symptoms HEENT: Reports: No Symptoms Respiratory: Reports: No Symptoms Cardiovascular: Reports: Chest Pain Endocrine: Reports: No Symptoms GI/Abdominal: Reports: No Symptoms : Reports: No Symptoms Musculoskeletal: Reports: No Symptoms Skin: Reports: No Symptoms ED EXAM, GENERAL - Physical Exam Exam: See Below Exam Limited By: No Limitations General Appearance: Alert, No Apparent Distress Ears: Normal External Exam Nose: Normal Inspection Head: Atraumatic, Normocephalic Neck: Normal Inspection Respiratory/Chest: No Respiratory Distress, Decreased Breath Sounds Cardiovascular: Regular Rate, Rhythm, No Edema, No Murmur GI/Abdominal: Soft, Non-Tender, No Organomegaly, No Mass Back Exam: Normal Inspection Extremities: Normal Inspection EKG INTERPRETATION EKG Date: 05/17/19 Time: 10:47 Rhythm: NSR Rate (Beats/Min): 88 [place]: Normal P-Wave: Present QRS: Normal ST-T: Normal QT: Normal Course - Vital Signs Last Recorded V/S: Last Vital Signs Temp 97.6 F 05/17/19 09:48 Pulse 109 H 05/17/19 09:48 Resp 20 05/17/19 09:48 BP 140/78 05/17/19 09:48 Pulse Ox 98 05/17/19 10:41 - Orders/Labs/Meds Orders: Active Orders 24 hr Category Date Time Status Cardiac Monitoring [RC] . DIRECTED Care 05/17/19 10:13 Active EKG Documentation Completion [RC] STAT Care 05/17/19 10:14 Active RT Aerosol Therapy [RC] ASDIRECTED Care 05/17/19 10:14 Active Labs: Laboratory Tests 05/17/19 05/17/19 Range/Units 10:35 10:35 WBC 9.97 (3.98-10.04) K/mm3 RBC 3.67 L (3.98-5.22) M/mm3 Hgb 10.1 L (11.2-15.7) gm/dl Hct 33.9 L (34.1-44.9) % MCV 92.4 (79.4-94.8) fl MCH 27.5 (25.6-32.2) pg MCHC 29.8 L (32.2-35.5) g/dl RDW Std Deviation 49.2 H (36.4-46.3) fL Plt Count 259 (182-369) K/mm3 MPV 9.6 (9.4-12.3) fl Neut % (Auto) 77.8 H (34.0-71.1) % Lymph % (Auto) 12.3 L (19.3-51.7) % [place] % (Auto) 6.1 (4.7-12.5) % Eos % (Auto) 3.4 (0.7-5.8) Baso % (Auto) 0.2 (0.1-1.2) % Neut # (Auto) 7.75 H (1.56-6.13) K/mm3 Lymph # (Auto) 1.23 (1.18-3.74) K/mm3 [place] # (Auto) 0.61 H (0.24-0.36) K/mm3 Eos # (Auto) 0.34 (0.04-0.36) K/mm3 Baso # (Auto) 0.02 (0.01-0.08) K/mm3 Manual Slide Review Abnormal smear Sodium 135 L (136-145) mEq/L Potassium 4.8 (3.5-5.1) mEq/L Chloride 102 (98-107) mEq/L Carbon Dioxide 27 (21-32) mEq/L Anion Gap 10.8 (5-15) BUN 24 H (7-18) mg/dL Creatinine 1.1 H (0.55-1.02) mg/dL Est Cr Clr Drug Dosing 41.68 mL/min Estimated GFR (MDRD) 49 (>60) mL/min BUN/Creatinine Ratio 21.8 H (14-18) Glucose 188 H (80-115) mg/dL Calcium 9.2 (8.5-10.1) mg/dL Total Bilirubin 0.3 (0.2-1.0) mg/dL AST 17 (15-37) U/L ALT 29 (14-59) U/L Alkaline Phosphatase 84 (46-116) U/L Troponin I < 0.017 (0.00-0.056) ng/mL Total Protein 7.0 (6.4-8.2) g/dl Albumin 3.3 L (3.4-5.0) g/dl Globulin 3.7 gm/dL Albumin/Globulin Ratio 0.9 L (1-2) Meds: Medications Discontinued Medications Generic Name Dose Route Start Last Admin Trade Name Angélica PRN Reason Stop Dose Admin Hydrocodone Bitart/Acetaminophen 2 tab 05/17/19 10:14 05/17/19 10:27 [place] 325-5 Mg PO 05/17/19 10:15 2 tab ONETIME ONE Administration Albuterol/Ipratropium 3 ml 05/17/19 10:14 05/17/19 10:41 Duoneb 3.0-0.5 Mg/3 Ml NEB 05/17/19 10:15 3 ml ONETIME ONE Administration - Re-Assessments/Exams Free Text/Narrative Re-Assessment/Exam: 05/17/19 11:31 I ordered an EKG, labs and a duoneb. I was able to get the CT results and it shows multiple pulmonary nodules but nothing acute. Her EKG shows no acute changes. Her Hgb was a little low at 10.1. Her Na is low at 135. Her creatinine is 1.1. Her glucose is 188. Her troponin is negative. Departure - Departure Time of Disposition: 11:40 Disposition: Home, Self-Care 01 Condition: Good Clinical Impression: Chest wall pain - Discharge Information *PRESCRIPTION DRUG MONITORING PROGRAM REVIEWED*: No *COPY OF PRESCRIPTION DRUG MONITORING REPORT IN PATIENT RUCHI: No Prescriptions: Hydrocodone/Acetaminophen [Hydrocodon-Acetaminophen 5-325] 1 - 2 each PO Q6HR PRN #20 tablet PRN Reason: Pain Referrals: Prerna Mccarthy MD [Primary Care Provider] - 1 Week Additional Instructions: Take your medication as prescribed. Take the hydrocodone as needed for pain. Please return if you are worse. Sepsis Event Note - Evaluation Sepsis Screening Result: No Definite Risk - Focused Exam Vital Signs: Vital Signs Temp Pulse Resp BP Pulse Ox Pulse Ox 05/17/19 10:41 98 05/17/19 09:48 97.6 F 109 H 20 140/78 97 Date Exam was Performed: 05/17/19 Time Exam was Performed: 11:26 - My Orders Last 24 Hours: My Active Orders 05/17/19 10:13 Cardiac Monitoring [RC] . DIRECTED 05/17/19 10:14 EKG Documentation Completion [RC] STAT RT Aerosol Therapy [RC] ASDIRECTED - Assessment/Plan Last 24 Hours: My Active Orders 05/17/19 10:13 Cardiac Monitoring [RC] . DIRECTED 05/17/19 10:14 EKG Documentation Completion [RC] STAT RT Aerosol Therapy [RC] ASDIRECTED
== END 2019-05-17 11:50 | disposition home or self-care (01) ==
LOC: JD.ED 09:33
DX: R07.89 Other chest pain (principal); I10 Essential (primary) hypertension; E78.00 Pure hypercholesterolemia, unspecified; J44.9 Chronic obstructive pulmonary disease, unspecified; M10.9 Gout, unspecified; F41.9 Anxiety disorder, unspecified; F32.9 Major depressive disorder, single episode, unspecified; E11.40 Type 2 diabetes mellitus with diabetic neuropathy, unspecified; Z79.4 Long term (current) use of insulin; Z79.82 Long term (current) use of aspirin; Z79.899 Other long term (current) drug therapy
CPT/HCPCS: 36415; 80053; 84484; 85025; 93005; 94640; 99285; A9270; 93010; 99283; J7620-GY

== ENCOUNTER 2019-05-28 10:26 | Emergency (ER) | payer MEDICARE, MEDICAID ==
[2019-05-28 11:08] VITALS: BP 154/82; PULSE 75
[2019-05-28] MEDS ORDERED: Ketorolac 60 MG/2 ML SDV IM ONE (11:34)
--- NOTE | 2019-05-28 11:46 | EDM.PDOC ---
ED HPI GENERAL MEDICAL PROBLEM - General Chief Complaint: Chest Pain Stated Complaint: RIB PAIN Time Seen by Provider: 05/28/19 11:20 Source of Information: Reports: Patient History Limitations: Reports: No Limitations - History of Present Illness INITIAL COMMENTS - FREE TEXT/NARRATIVE: Patient is a 69-year-old female who presents with bilateral rib pain that wraps around to her back. Patient was seen in this emergency department approximately 11 days ago with the same symptoms. She states that the pain has not resolved since that time. At the onset of symptoms, she had been recently prescribed lisinopril which caused her to have a cough. She has since been taken off that medication, however she continues to have the pain in her chest wall. It is tender to palpation, worse on the right than the left, and painful with breathing. She was prescribed [place] at her last visit. She said all that did was make her tired but it did not relieve the pain. She has been using over -the-counter Tylenol and ibuprofen for the pain without relief. She denies any fever, chills, cough, shortness of breath, or diaphoresis. She has an appointment scheduled with her primary care provider, Dr. Mccarthy, this coming Sunday. Bilateral Chest Pain Score (Numeric/FACES): 10 - Related Data Allergies Allergy/AdvReac Type Severity Reaction Status Date / Time insulin detemir Allergy Mild Itching Verified 05/28/19 11:08 [From Levemir] doxycycline Allergy Swelling Verified 05/28/19 11:08 lisinopril Allergy Cough Verified 05/28/19 11:08 Home Meds: Home Meds Allopurinol [Zyloprim] 300 mg PO DAILY 04/18/15 [History] Aspirin [Sacha Chewable Aspirin] 81 mg PO DAILY 04/18/15 [History] Lisinopril 10 mg PO DAILY 04/18/15 [History] Lovastatin 10 mg PO BEDTIME 04/18/15 [History] metFORMIN [Glucophage] 1,000 mg PO BIDMEALS 04/18/15 [History] Albuterol/Ipratropium [DuoNeb 3.0-0.5 MG/3 ML] 3 ml NEB Q6H PRN 06/28/17 [ History] Meloxicam [Mobic] 15 mg PO DAILY 06/28/17 [History] Insulin Degludec [Tresiba Flextouch U-200] 73 unit SQ DAILY 03/24/18 [History] Sertraline [Zoloft] 100 tab PO DAILY 04/29/18 [History] glipiZIDE [Glipizide ER] 10 mg PO BIDMEALS 04/29/18 [History] Fluticasone/Salmeterol [Advair 250-50 Diskus] 1 each IH BID #1 disk.w.dev [Rx] buPROPion [buPROPion XL] 150 mg PO DAILY 01/17/19 [History] Benzonatate [Tessalon Perle] 100 mg PO TID PRN #21 capsule 01/19/19 [Rx] Dextromethorphan/guaiFENesin [Robitussin DM] 10 ml PO Q4H PRN #20 cup 01/19/19 [ Rx] Albuterol/Ipratropium [DuoNeb 3.0-0.5 MG/3 ML] 3 ml .XX Q4H PRN #20 neb [Rx] Azithromycin [Zithromax] 250 mg PO DAILY 4 Days #4 tab 04/26/19 [Rx] Benzonatate [Tessalon Perle] 100 mg PO TID PRN #21 capsule 04/26/19 [Rx] predniSONE [Prednisone] 20 mg PO BID 5 Days #9 tablet 04/26/19 [Rx] Hydrocodone/Acetaminophen [Hydrocodon-Acetaminophen 5-325] 1 - 2 each PO Q6HR PRN #20 tablet 05/17/19 [Rx] predniSONE [Prednisone] 20 mg PO BID 5 Days #10 tablet 05/28/19 [Rx] Past Medical History HEENT History: Reports: Impaired Vision, Retinal Detachment 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 SHUCKER History: Reports: Musculoskeletal History: Reports: Back Pain, Chronic, Gout, Other (See Below) Other Musculoskeletal History: Right knee pain Neurological History: Reports: Migraines, Neuropathy, Diabetic Psychiatric History: Reports: Anxiety, Depression Endocrine/Metabolic History: Reports: Diabetes, Type II Hematologic History: Reports: None Immunologic History: Reports: None Oncologic (Cancer) History: Reports: None Dermatologic History: Reports: None - Infectious Disease History Infectious Disease History: Reports: Chicken Pox, Measles, Mumps - Past Surgical History Head Surgeries/Procedures: Reports: None HEENT Surgical History: Reports: Eye Surgery, Other (See Below) Other HEENT Surgeries/Procedures: retinal detachment surgery x2. Cardiovascular Surgical History: Reports: None Respiratory Surgical History: Reports: None GI Surgical History: Reports: Appendectomy, Cholecystectomy Female Surgical History: Reports: Hysterectomy, Lithotripsy/ESWL Endocrine Surgical History: Reports: None Neurological Surgical History: Reports: None Musculoskeletal Surgical History: Reports: Other (See Below) Other Musculoskeletal Surgeries/Procedures:: knee sx bilaterally Oncologic Surgical History: Reports: None Dermatological Surgical History: Reports: None Social & Family History - Family History Family Medical History: Noncontributory Endocrine/Metabolic: Reports: Diabetes, type II - Tobacco Use Smoking Status *Q: Current Every Day Smoker Years of Tobacco use: 40 Packs/Tins Daily: 0.1 - Caffeine Use Caffeine Use: Reports: Soda Other Caffeine Use: diet pepsi - Recreational Drug Use Recreational Drug Use: No - Living Situation & Occupation Living situation: Reports: Single Occupation: Retired ED ROS GENERAL - Review of Systems Review Of Systems: Comprehensive ROS is negative, except as noted in HPI. ED EXAM, GENERAL - Physical Exam Exam: See Below Exam Limited By: No Limitations General Appearance: Alert, WD/WN, No Apparent Distress Neck: Normal Inspection, Supple, Non-Tender, Full Range of Motion Respiratory/Chest: No Respiratory Distress, Lungs Clear, Normal Breath Sounds, No Accessory Muscle Use, Other (Tenderness throughout the thorax extending into the back. Right worse than left.). No: Decreased Breath Sounds, Wheezing Back Exam: Normal Inspection, Paraspinal Tenderness Neurological: Alert, Oriented, CN II-XII Intact, Normal Cognition, Normal Gait, Normal Reflexes, No Motor/Sensory Deficits Psychiatric: Normal Affect, Normal Mood Skin Exam: Warm, Dry, Intact, Normal Color, No Rash Course - Vital Signs Last Recorded V/S: Last Vital Signs Temp 98.5 F 05/28/19 10:59 Pulse 75 05/28/19 10:59 Resp 18 05/28/19 10:59 BP 154/82 H 05/28/19 10:59 Pulse Ox 96 05/28/19 10:59 - Orders/Labs/Meds Orders: Active Orders 24 hr Category Date Time Status EKG Documentation Completion [RC] STAT Care 05/28/19 11:21 Active Labs: Laboratory Tests 05/28/19 05/28/19 Range/Units 11:51 11:51 WBC 11.40 H (3.98-10.04) K/mm3 RBC 3.73 L (3.98-5.22) M/mm3 Hgb 10.2 L (11.2-15.7) gm/dl Hct 34.1 (34.1-44.9) % MCV 91.4 (79.4-94.8) fl MCH 27.3 (25.6-32.2) pg MCHC 29.9 L (32.2-35.5) g/dl RDW Std Deviation 47.9 H (36.4-46.3) fL Plt Count 228 (182-369) K/mm3 MPV 9.7 (9.4-12.3) fl Neut % (Auto) 72.2 H (34.0-71.1) % Lymph % (Auto) 16.8 L (19.3-51.7) % Craig % (Auto) 5.7 (4.7-12.5) % Eos % (Auto) 4.7 (0.7-5.8) Baso % (Auto) 0.2 (0.1-1.2) % Neut # (Auto) 8.24 H (1.56-6.13) K/mm3 Lymph # (Auto) 1.91 (1.18-3.74) K/mm3 Craig # (Auto) 0.65 H (0.24-0.36) K/mm3 Eos # (Auto) 0.54 H (0.04-0.36) K/mm3 Baso # (Auto) 0.02 (0.01-0.08) K/mm3 Manual Slide Review Abnormal smear Sodium 140 (136-145) mEq/L Potassium 4.2 (3.5-5.1) mEq/L Chloride 105 (98-107) mEq/L Carbon Dioxide 25 (21-32) mEq/L Anion Gap 14.2 (5-15) BUN 20 H (7-18) mg/dL Creatinine 1.0 (0.55-1.02) mg/dL Est Cr Clr Drug Dosing 45.85 mL/min Estimated GFR (MDRD) 55 (>60) mL/min BUN/Creatinine Ratio 20.0 H (14-18) Glucose 104 (80-115) mg/dL Calcium 9.3 (8.5-10.1) mg/dL Total Bilirubin 0.2 (0.2-1.0) mg/dL AST 15 (15-37) U/L ALT 24 (14-59) U/L Alkaline Phosphatase 82 (46-116) U/L Troponin I < 0.017 (0.00-0.056) ng/mL Total Protein 7.1 (6.4-8.2) g/dl Albumin 3.3 L (3.4-5.0) g/dl Globulin 3.8 gm/dL Albumin/Globulin Ratio 0.9 L (1-2) Meds: Medications Discontinued Medications Generic Name Dose Route Start Last Admin Trade Name Freq PRN Reason Stop Dose Admin Ketorolac Tromethamine 60 mg 05/28/19 11:34 05/28/19 12:08 Toradol IM 05/28/19 11:35 60 mg ONETIME ONE Administration - Re-Assessments/Exams Free Text/Narrative Re-Assessment/Exam: On exam, vital signs are stable and patient is in no respiratory distress. The pain she is experiencing appears to be musculoskeletal in nature, however we will complete cardiac work-up rule out cardiac involvement. I will give a injection of Toradol 60 mg IM at this time. I have ordered a CBC, CMP, CRP, troponin, chest x-ray, and EKG. 05/28/19 15:35 Patient's work-up was grossly unremarkable. Troponin was negative. She did have significant relief of symptoms with a Toradol injection. We will discharge her home with a 5-day course of prednisone. She does have an appointment with her primary care provider Dr. Mccarthy on Sunday. Discharge instructions as noted. Departure - Departure Time of Disposition: 12:54 Disposition: Home, Self-Care 01 Condition: Fair Clinical Impression: Chest wall pain Prescriptions: predniSONE [Prednisone] 20 mg PO BID 5 Days #10 tablet Instructions: Chest Wall Pain, [id number] Referrals: Prerna Mccarthy MD [Primary Care Provider] - Forms: ED Department Discharge Additional Instructions: You were seen in the emergency department today for continued chest wall pain that has been occurring for about the past 2 weeks. Your cardiac work-up was normal. It is likely that she had inflammation in your chest wall related to the cough that she had prior to the symptoms beginning. I have ordered you a course of prednisone. You will take this 1 tab twice daily for 5 days. In addition, you may continue to use [id number] Tylenol or ibuprofen as needed. I recommend that you keep your appointment with Dr. Mccarthy on Sunday. If your symptoms do not improve or resolve by that time, you experience any new or worsening symptoms, please do not hesitate to return to the emergency department. Sepsis Event Note - Evaluation Sepsis Screening Result: No Definite Risk - Focused Exam Vital Signs: Vital Signs Temp Pulse Resp BP Pulse Ox 05/28/19 10:59 98.5 F 75 18 154/82 H 96 Date Exam was Performed: 05/28/19 Time Exam was Performed: 15:35 - My Orders Last 24 Hours: My Active Orders 05/28/19 11:21 EKG Documentation Completion [RC] STAT - Assessment/Plan Last 24 Hours: My Active Orders 05/28/19 11:21 EKG Documentation Completion [RC] STAT
--- NOTE | 2019-05-28 12:21 | CR ---
Chest: Two views of the chest are obtained. Comparison: Prior chest x-ray of 04/26/19. Heart size and mediastinum are normal. Slight scarring is felt to be present within the left lung base. No acute parenchymal change is appreciated. Bony structures show a compression deformity within the midthoracic spine which is believed to be more prominent than on previous exam. Impression: 1. Compression deformity within the midthoracic spine felt to be slightly more prominent than on prior chest x-ray. 2. Nothing acute is otherwise seen on two-view chest x-ray. Diagnostic code #3 This report was dictated in [place] Standard Time
== END 2019-05-28 13:45 | disposition home or self-care (01) ==
LOC: JD.ED 10:26
DX: R07.89 Other chest pain (principal); J44.9 Chronic obstructive pulmonary disease, unspecified; H54.40 Blindness, one eye, unspecified eye; E78.00 Pure hypercholesterolemia, unspecified; I10 Essential (primary) hypertension; M10.9 Gout, unspecified; F32.9 Major depressive disorder, single episode, unspecified; F41.9 Anxiety disorder, unspecified; E11.40 Type 2 diabetes mellitus with diabetic neuropathy, unspecified; F17.210 Nicotine dependence, cigarettes, uncomplicated; Z88.8 Allergy status to other drugs, medicaments and biological substances; Z88.1 Allergy status to other antibiotic agents; Z79.82 Long term (current) use of aspirin; Z79.899 Other long term (current) drug therapy; Z79.4 Long term (current) use of insulin; Z79.51 Long term (current) use of inhaled steroids; Z79.52 Long term (current) use of systemic steroids
CPT/HCPCS: 36415; 71046; 80053; 84484; 85025; 93005; 96372; 99284; J1885; 99283

== ENCOUNTER 2019-06-10 07:01 | Emergency (ER) | payer MEDICARE, MEDICAID ==
[2019-06-10 07:27] VITALS: BP 159/64; PULSE 77
[2019-06-10] MEDS ORDERED: Albuterol/Ipratropium 3.0-0.5 MG/3 ML Neb Soln NEB ONE (07:59)
--- NOTE | 2019-06-10 08:02 | EDM.PDOC ---
ED HPI GENERAL MEDICAL PROBLEM - General Chief Complaint: Respiratory Problem Stated Complaint: SOB Time Seen by Provider: 06/10/19 07:44 Source of Information: Reports: Patient, RN Notes Reviewed - History of Present Illness INITIAL COMMENTS - FREE TEXT/NARRATIVE: 69-year-old lady with worsening productive cough over the past 3-4 days. She has had worsening wheezing, difficulty breathing over the past 1-2 daysshe does use inhalers, she does have a nebulizer at home but is out of the medication. She does have some chills, no definite fever. She did get a flu shot last fall , she does have history of COPD.. Back Pain Score (Numeric/FACES): 10 - Related Data Allergies Allergy/AdvReac Type Severity Reaction Status Date / Time insulin detemir Allergy Mild Itching Verified 06/10/19 07:27 [From Levemir] doxycycline Allergy Swelling Verified 06/10/19 07:27 lisinopril Allergy Cough Verified 06/10/19 07:27 Home Meds: Home Meds Allopurinol [Zyloprim] 300 mg PO DAILY 04/18/15 [History] Aspirin [Sacha Chewable Aspirin] 81 mg PO DAILY 04/18/15 [History] Lovastatin 10 mg PO BEDTIME 04/18/15 [History] metFORMIN [Glucophage] 1,000 mg PO BIDMEALS 04/18/15 [History] Meloxicam [Mobic] 15 mg PO DAILY 06/28/17 [History] Insulin Degludec [Tresiba Flextouch U-200] 73 unit SQ DAILY 03/24/18 [History] Sertraline [Zoloft] 100 tab PO DAILY 04/29/18 [History] glipiZIDE [Glipizide ER] 10 mg PO BIDMEALS 04/29/18 [History] Fluticasone/Salmeterol [Advair 250-50 Diskus] 1 each IH BID #1 disk.w.dev [Rx] buPROPion [buPROPion XL] 150 mg PO DAILY 01/17/19 [History] Dextromethorphan/guaiFENesin [Robitussin DM] 10 ml PO Q4H PRN #20 cup 01/19/19 [ Rx] Albuterol/Ipratropium [DuoNeb 3.0-0.5 MG/3 ML] 3 ml .XX Q4H PRN #20 neb [Rx] Azithromycin [Zithromax] 250 mg PO DAILY 4 Days #4 tab 04/26/19 [Rx] Hydrocodone/Acetaminophen [Hydrocodon-Acetaminophen 5-325] 1 - 2 each PO Q6HR PRN #20 tablet 05/17/19 [Rx] Amoxicillin 500 mg PO Q8HR #20 capsule 06/10/19 [Rx] predniSONE [Prednisone] 50 mg PO DAILY #5 tablet 06/10/19 [Rx] Past Medical History HEENT History: Reports: Impaired Vision, Retinal Detachment 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 [employer] History: Reports: Musculoskeletal History: Reports: Back Pain, Chronic, Gout, Other (See Below) Other Musculoskeletal History: Right knee pain Neurological History: Reports: Migraines, Neuropathy, Diabetic Psychiatric History: Reports: Anxiety, Depression Endocrine/Metabolic History: Reports: Diabetes, Type II Hematologic History: Reports: None Immunologic History: Reports: None Oncologic (Cancer) History: Reports: None Dermatologic History: Reports: None - Infectious Disease History Infectious Disease History: Reports: Chicken Pox, Measles, Mumps - Past Surgical History Head Surgeries/Procedures: Reports: None HEENT Surgical History: Reports: Eye Surgery, Other (See Below) Other HEENT Surgeries/Procedures: retinal detachment surgery x2. Cardiovascular Surgical History: Reports: None Respiratory Surgical History: Reports: None GI Surgical History: Reports: Appendectomy, Cholecystectomy Female Surgical History: Reports: Hysterectomy, Lithotripsy/ESWL Endocrine Surgical History: Reports: None Neurological Surgical History: Reports: None Musculoskeletal Surgical History: Reports: Other (See Below) Other Musculoskeletal Surgeries/Procedures:: knee sx bilaterally Oncologic Surgical History: Reports: None Dermatological Surgical History: Reports: None Social & Family History - Family History Family Medical History: Noncontributory Endocrine/Metabolic: Reports: Diabetes, type II - Tobacco Use Smoking Status *Q: Current Every Day Smoker Years of Tobacco use: 49 Packs/Tins Daily: 0.1 - Caffeine Use Caffeine Use: Reports: Soda Other Caffeine Use: diet pepsi - Living Situation & Occupation Living situation: Reports: Single Occupation: Retired ED ROS GENERAL - Review of Systems Review Of Systems: See Below Constitutional: Denies: Fever, Chills HEENT: Reports: Rhinitis (mild) Respiratory: Reports: Shortness of Breath, Wheezing, Cough Cardiovascular: Denies: Chest Pain GI/Abdominal: Denies: Abdominal Pain, Nausea, Vomiting Musculoskeletal: Reports: No Symptoms Skin: Reports: No Symptoms Neurological: Reports: No Symptoms ED EXAM, GENERAL - Physical Exam Exam: See Below General Appearance: Alert, No Apparent Distress Eye Exam: Bilateral Eye: PERRL Head: Atraumatic. No: Facial Swelling Neck: Supple Respiratory/Chest: Respiratory Distress (mild tachypnea). No: Rhonchi, Wheezing Cardiovascular: Regular Rate, Rhythm GI/Abdominal: Soft, Non-Tender Extremities: No: Pedal Edema, Leg Pain, Increased Warmth, Redness Neurological: No Motor/Sensory Deficits Skin Exam: Warm, Dry, Normal Color Course - Vital Signs Last Recorded V/S: Last Vital Signs Temp 98.7 F 06/10/19 07:24 Pulse 77 06/10/19 07:24 Resp 20 06/10/19 07:24 BP 159/64 H 06/10/19 07:24 Pulse Ox 96 06/10/19 10:06 - Orders/Labs/Meds Labs: Laboratory Tests 06/10/19 06/10/19 06/10/19 Range/Units 08:15 08:15 08:15 WBC 8.58 (3.98-10.04) K/mm3 RBC 3.79 L (3.98-5.22) M/mm3 Hgb 10.3 L (11.2-15.7) gm/dl Hct 35.6 (34.1-44.9) % MCV 93.9 (79.4-94.8) fl MCH 27.2 (25.6-32.2) pg MCHC 28.9 L (32.2-35.5) g/dl RDW Std Deviation 50.8 H (36.4-46.3) fL Plt Count 227 (182-369) K/mm3 MPV 8.6 L (9.4-12.3) fl Neut % (Auto) 72.0 H (34.0-71.1) % Lymph % (Auto) 13.6 L (19.3-51.7) % Saline % (Auto) 8.9 (4.7-12.5) % Eos % (Auto) 5.1 (0.7-5.8) Baso % (Auto) 0.3 (0.1-1.2) % Neut # (Auto) 6.17 H (1.56-6.13) K/mm3 Lymph # (Auto) 1.17 L (1.18-3.74) K/mm3 Saline # (Auto) 0.76 H (0.24-0.36) K/mm3 Eos # (Auto) 0.44 H (0.04-0.36) K/mm3 Baso # (Auto) 0.03 (0.01-0.08) K/mm3 Manual Slide Review Abnormal smear Sodium 143 (136-145) mEq/L Potassium 4.6 (3.5-5.1) mEq/L Chloride 106 (98-107) mEq/L Carbon Dioxide 26 (21-32) mEq/L Anion Gap 15.6 H (5-15) BUN 26 H (7-18) mg/dL Creatinine 1.4 H (0.55-1.02) mg/dL Est Cr Clr Drug Dosing 32.75 mL/min Estimated GFR (MDRD) 37 (>60) mL/min BUN/Creatinine Ratio 18.6 H (14-18) Glucose 94 (80-115) mg/dL Calcium 9.3 (8.5-10.1) mg/dL Total Bilirubin 0.8 (0.2-1.0) mg/dL AST 20 (15-37) U/L ALT 30 (14-59) U/L Alkaline Phosphatase 95 (46-116) U/L C-Reactive Protein 1.6 H* (<1.0) mg/dL Total Protein 7.3 (6.4-8.2) g/dl Albumin 3.5 (3.4-5.0) g/dl Globulin 3.8 gm/dL Albumin/Globulin Ratio 0.9 L (1-2) Meds: Medications Discontinued Medications Generic Name Dose Route Start Last Admin Trade Name Freq PRN Reason Stop Dose Admin Albuterol 2.5 mg 06/10/19 10:02 06/10/19 10:05 Proventil Neb Soln NEB 06/10/19 10:03 2.5 mg ONETIME ONE Administration Albuterol/Ipratropium 3 ml 06/10/19 07:59 06/10/19 08:27 Duoneb 3.0-0.5 Mg/3 Ml NEB 06/10/19 08:00 3 ml ONETIME ONE Administration - Re-Assessments/Exams Free Text/Narrative Re-Assessment/Exam: 06/16/19 10:04 CXR no infiltrate, WBC nl, afebrile, no evidence pneumonia. Duoneb helped her , discharge instr. as documented. Departure - Departure Time of Disposition: 10:05 Disposition: Home, Self-Care 01 Condition: Fair Clinical Impression: Bronchitis, COPD exacerbation - Discharge Information Prescriptions: Amoxicillin 500 mg PO Q8HR #20 capsule predniSONE [Prednisone] 50 mg PO DAILY #5 tablet Instructions: Chronic Obstructive Pulmonary Disease Exacerbation, [id number] , Acute Bronchitis, Adult Referrals: Prerna Mccarthy MD [Primary Care Provider] - Forms: ED Department Discharge Additional Instructions: rest, vaporizer or humidifier as needed. Amoxicillin 500 mg 3 times daily for 1 week, prednisone 50 milligrams every morning for 5 days. albuterol nebs every 4- 6 hours as needed for severe cough, wheezing or difficulty breathing. Follow up clinic if not much better within 4-5 days as expected, return to ED as needed if symptoms worsening in any way. The prescriptions for the amoxicillin and prednisone have been sent electronically to the medicine shop. Sepsis Event Note - Evaluation Sepsis Screening Result: No Definite Risk - Focused Exam Date Exam was Performed: 06/16/19 Time Exam was Performed: 10:01
--- NOTE | 2019-06-10 08:54 | CR ---
Chest PA and lateral views of the chest were obtained. Comparison: Prior chest x-ray of 05/28/19. Heart size and mediastinum are within normal limits. Slight parenchymal density seen left lung base believed to be chronic. Lungs otherwise are clear. No acute parenchymal change is seen. Compression deformity is seen within the mid thoracic spine which is stable from most recent chest x-ray. Impression: 1. Probable scarring within the left base. Stable compression deformity. 2. Nothing acute is appreciated. Diagnostic code #2 Study was dictated in [place] Standard Time
[2019-06-10] MEDS ORDERED: Albuterol 0.083% 2.5 MG/3 ML Neb Soln NEB ONE (10:02)
== END 2019-06-10 10:35 | disposition home or self-care (01) ==
LOC: JD.ED 07:01
DX: J44.1 Chronic obstructive pulmonary disease with (acute) exacerbation (principal); I10 Essential (primary) hypertension; E11.40 Type 2 diabetes mellitus with diabetic neuropathy, unspecified; E78.00 Pure hypercholesterolemia, unspecified; M10.9 Gout, unspecified; F41.9 Anxiety disorder, unspecified; F32.9 Major depressive disorder, single episode, unspecified; F17.210 Nicotine dependence, cigarettes, uncomplicated; Z88.8 Allergy status to other drugs, medicaments and biological substances; Z88.1 Allergy status to other antibiotic agents; Z79.82 Long term (current) use of aspirin; Z79.4 Long term (current) use of insulin; Z79.899 Other long term (current) drug therapy
CPT/HCPCS: 36415; 71046; 71046-26; 80053; 85025; 86140; 94640; 99283; 99285-25; J7620-GY

== ENCOUNTER 2019-11-08 10:15 | Emergency (ER) | payer MEDICARE, MEDICAID ==
[2019-11-08 10:26] VITALS: BP 153/94; PULSE 85
[2019-11-08] MEDS ORDERED: Albuterol/Ipratropium 3.0-0.5 MG/3 ML Neb Soln NEB ONE ×2 (11:17→12:18)
[2019-11-08] MEDS ORDERED: Sodium Chloride 0.9% 10 ML Syringe FLUSH PRN (11:18)
[2019-11-08] MEDS ORDERED: methylPREDNISolone Sodium Succinate 125 MG/2 ML SDV IVPUSH ONE (11:20)
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
[2019-11-08] MEDS ORDERED: Ketorolac 30 MG/ML SDV IVPUSH ONE (13:30)
[2019-11-08] MEDS ORDERED: Azithromycin 250 MG Tab PO ONE (14:02)
--- NOTE | 2019-11-09 11:26 | CR ---
Chest: PA and lateral views of the chest were obtained. Comparison: Prior chest x-ray of 06/10/19. Slight scarring is noted within the left base. Lungs otherwise are clear with no acute parenchymal change. Heart size and mediastinum are normal. Bony structures are unremarkable. Impression: 1. Slight scarring within the left lung base. 2. Nothing acute is seen on 2 view chest x-ray. Diagnostic code #2 This report was dictated in MDT
[2019-11-09] MEDS ORDERED: Azithromycin 250 MG Tab PO ONE (14:01)
== END 2019-11-08 14:38 | disposition home or self-care (01) ==
LOC: JD.ED 10:15
DX: J44.1 Chronic obstructive pulmonary disease with (acute) exacerbation (principal); E78.00 Pure hypercholesterolemia, unspecified; I10 Essential (primary) hypertension; M10.9 Gout, unspecified; F41.9 Anxiety disorder, unspecified; F32.9 Major depressive disorder, single episode, unspecified; E11.40 Type 2 diabetes mellitus with diabetic neuropathy, unspecified; Z79.4 Long term (current) use of insulin; Z79.82 Long term (current) use of aspirin; Z88.8 Allergy status to other drugs, medicaments and biological substances; Z88.1 Allergy status to other antibiotic agents
CPT/HCPCS: 36415; 71046; 80053; 85025; 86140; 94640; 96374; 96375; 99285; A9270; J1885; J2930; 99283; J7620-GY

== ENCOUNTER 2020-01-10 19:57 | Emergency (ER) | payer MEDICARE, MEDICAID ==
[2020-01-10 20:22] VITALS: BP 163/90; PULSE 119
[2020-01-10] MEDS ORDERED: Albuterol 6.7 GM Inhaler INH ONE (20:59)
--- NOTE | 2020-01-10 20:59 | EDM.PDOC ---
ED HPI GENERAL MEDICAL PROBLEM - General Chief Complaint: Respiratory Problem Stated Complaint: SOB Time Seen by Provider: 01/10/20 20:03 Source of Information: Reports: Patient History Limitations: Reports: No Limitations - History of Present Illness INITIAL COMMENTS - FREE TEXT/NARRATIVE: This is a 69-year-old female. She has a history of COPD she still smokes she is an insulin-dependent diabetic has a history of congestive heart failure chronic back pain and neuropathy and she is blind in her right eye. She apparently does not use oxygen during the day but at nighttime she uses 2 L/min nasal cannula. She says she is been sick for the last 3 days with cough shortness of breath headache sore throat chills and a low-grade fever of approximately 100. Over the last 2 to 3 days it is getting worse and she she comes to the ER for evaluation. Said her family is also sick with many of the same symptoms she is describing. When the ambulance arrived and her home her pulse ox was 83% on room air. When she comes to the ER on 2 L per nasal cannula her pulse ox is 98%. The patient has a continual hacking type cough noted when I was in the room. He denies any acute extremis and shortness of breath but she does look like she is uncomfortable. Is any nausea or vomiting denies any diarrhea. Headache Pain Score (Numeric/FACES): 7 - Related Data Allergies Allergy/AdvReac Type Severity Reaction Status Date / Time insulin detemir Allergy Mild Itching Verified 01/10/20 20:22 [From Levemir] doxycycline Allergy Swelling Verified 01/10/20 20:22 lisinopril Allergy Cough Verified 01/10/20 20:22 Home Meds: Home Meds Allopurinol [Zyloprim] 300 mg PO DAILY 04/18/15 [History] Aspirin [Sacha Chewable Aspirin] 81 mg PO DAILY 04/18/15 [History] Lovastatin 10 mg PO BEDTIME 04/18/15 [History] metFORMIN [Glucophage] 1,000 mg PO BIDMEALS 04/18/15 [History] Meloxicam [Mobic] 15 mg PO DAILY 06/28/17 [History] Insulin Degludec [Tresiba Flextouch U-200] 73 unit SQ DAILY 03/24/18 [History] Sertraline [Zoloft] 100 tab PO DAILY 04/29/18 [History] glipiZIDE [Glipizide ER] 10 mg PO BIDMEALS 04/29/18 [History] Fluticasone Propion/Salmeterol [Advair 250-50 Diskus] 1 each IH BID #1 disk.w.dev 05/02/18 [Rx] buPROPion [buPROPion XL] 150 mg PO DAILY 01/17/19 [History] Dextromethorphan/guaiFENesin [Robitussin DM] 10 ml PO Q4H PRN #20 cup 01/19/19 [Rx] Albuterol/Ipratropium [DuoNeb 3.0-0.5 MG/3 ML] 3 ml .XX Q4H PRN #20 neb 04/26/19 [Rx] Azithromycin [Zithromax] 250 mg PO DAILY 4 Days #4 tab 04/26/19 [Rx] Hydrocodone/Acetaminophen [Hydrocodone-Acetamin 5-325 mg] 1 - 2 each PO Q6HR PRN #20 tablet 05/17/19 [Rx] Amoxicillin 500 mg PO Q8HR #20 capsule 06/10/19 [Rx] predniSONE [Prednisone] 50 mg PO DAILY #5 tablet 06/10/19 [Rx] Azithromycin [Zithromax] 500 mg IV Q24H 5 Days #4 adv 11/08/19 [Rx] predniSONE [Prednisone] 50 mg PO DAILY #5 tablet 11/08/19 [Rx] Albuterol/Ipratropium [DuoNeb 3.0-0.5 MG/3 ML] 3 ml .XX Q6H PRN #30 neb 01/10/20 [Rx] Amoxicillin/Potassium Clav [Augmentin 875-125 Tablet] 1 each PO BID #20 tablet 01/10/20 [Rx] Codeine/guaiFENesin [guaiFENesin-Codeine Syrup] 5 ml PO Q6H PRN #1 cup 01/10/20 [Rx] predniSONE [Prednisone] 50 mg PO QAM #7 tablet 01/10/20 [Rx] Past Medical History HEENT History: Reports: Impaired Vision, Retinal Detachment 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 [employer] History: Reports: Musculoskeletal History: Reports: Back Pain, Chronic, Gout, Other (See Below) Other Musculoskeletal History: Right knee pain Neurological History: Reports: Migraines, Neuropathy, Diabetic Psychiatric History: Reports: Anxiety, Depression Endocrine/Metabolic History: Reports: Diabetes, Type II Hematologic History: Reports: None Immunologic History: Reports: None Oncologic (Cancer) History: Reports: None Dermatologic History: Reports: None - Infectious Disease History Infectious Disease History: Reports: Chicken Pox, Measles, Mumps - Past Surgical History Head Surgeries/Procedures: Reports: None HEENT Surgical History: Reports: Eye Surgery, Other (See Below) Other HEENT Surgeries/Procedures: retinal detachment surgery x2. Cardiovascular Surgical History: Reports: None Respiratory Surgical History: Reports: None GI Surgical History: Reports: Appendectomy, Cholecystectomy Female Surgical History: Reports: Hysterectomy, Lithotripsy/ESWL Endocrine Surgical History: Reports: None Neurological Surgical History: Reports: None Musculoskeletal Surgical History: Reports: Other (See Below) Other Musculoskeletal Surgeries/Procedures:: knee sx bilaterally Oncologic Surgical History: Reports: None Dermatological Surgical History: Reports: None Social & Family History - Family History Family Medical History: Noncontributory Endocrine/Metabolic: Reports: Diabetes, type II - Tobacco Use Smoking Status *Q: Current Every Day Smoker Years of Tobacco use: 40 Packs/Tins Daily: 0.2 - Caffeine Use Caffeine Use: Reports: None Other Caffeine Use: diet pepsi - Recreational Drug Use Recreational Drug Use: No - Living Situation & Occupation Living situation: Reports: Single Occupation: Retired ED ROS GENERAL - Review of Systems Review Of Systems: See Below Constitutional: Reports: Fever, Chills, Malaise HEENT: Reports: Throat Pain Respiratory: Reports: Shortness of Breath, Wheezing, Cough Cardiovascular: Denies: Chest Pain Endocrine: Reports: No Symptoms GI/Abdominal: Denies: Abdominal Pain, Diarrhea, Nausea, Vomiting : Reports: No Symptoms Musculoskeletal: Reports: No Symptoms Skin: Reports: No Symptoms Neurological: Reports: Headache Psychiatric: Reports: No Symptoms ED EXAM, GENERAL - Physical Exam Exam: See Below Exam Limited By: No Limitations General Appearance: Alert, WD/WN, Mild Distress, Other (Has a constant [place] cough) Eye Exam: Bilateral Eye: Normal Inspection Ears: Normal External Exam Nose: Other (Minimal nasal drainage noted) Throat/Mouth: Normal Lips, Normal Voice, Other (Mild oropharynx inflammation no exudates noted) Head: Normocephalic Neck: Non-Tender Respiratory/Chest: Other (Has expiratory wheezing noted with a mild prolonged expiratory phase. I can hear some gurgles in the right upper lobe of her chest and may be a little in the right lower lobe though breath sounds are decreased. The left lung breath sounds appear to be normal except for the expiratory wheezing.) Cardiovascular: Regular Rate, Rhythm, No Murmur, Tachycardia GI/Abdominal: Soft, Other (Morbidly obese) Back Exam: Normal Inspection, Decreased Range of Motion Extremities: Normal Inspection, Normal Range of Motion. No: No Pedal Edema Neurological: Alert, Oriented Psychiatric: Anxious Skin Exam: Warm, Dry Course - Vital Signs Last Recorded V/S: Last Vital Signs Temp 96.6 F L 01/10/20 20:00 Pulse 119 H 01/10/20 20:00 Resp 26 H 01/10/20 20:00 BP 163/90 H 01/10/20 20:00 Pulse Ox 97 01/10/20 23:29 - Orders/Labs/Meds Orders: Active Orders 24 hr Category Date Time Status RT Aerosol Therapy [RC] ASDIRECTED Care 01/10/20 22:31 Active RT Aerosol Therapy [RC] ASDIRECTED Care 01/10/20 22:31 Active RT Post Treatment Assessment [RC] Click to Edit Care 01/10/20 21:00 Active RT Pre-Treatment Assessment [RC] Click to Edit Care 01/10/20 21:00 Active Chest 2V [CR] Stat Exams 01/10/20 20:54 Taken CULTURE STREP A CONFIRMATION [RM] Stat Lab 01/10/20 21:00 Results Rapid Strep w/culture conf [STREP SCRN A RAPID W CULT Lab 01/10/20 21:00 Results CONF] [RM] Stat cefTRIAXone [Rocephin] 1 gm Med 01/10/20 22:45 Active Lidocaine 1% [Xylocaine 1%] 2.1 ml IM Q24H Medication Orders Ceftriaxone Sodium 1 gm/ (Lidocaine HCl 2.1 ml) 0 gm IM Q24H ENID Last Admin: 01/10/20 23:18 Dose: 2.1 inj Documented by: BRIANNA Labs: Laboratory Tests 01/10/20 01/10/20 01/10/20 Range/Units 21:00 21:13 21:13 WBC 16.00 H (3.98-10.04) K/mm3 RBC 4.54 (3.98-5.22) M/mm3 Hgb 12.3 (11.2-15.7) gm/dl Hct 41.8 (34.1-44.9) % MCV 92.1 (79.4-94.8) fl MCH 27.1 (25.6-32.2) pg MCHC 29.4 L (32.2-35.5) g/dl RDW Std Deviation 49.0 H (36.4-46.3) fL Plt Count 300 (182-369) K/mm3 MPV 9.9 (9.4-12.3) fl Neut % (Auto) 73.5 H (34.0-71.1) % Lymph % (Auto) 17.0 L (19.3-51.7) % [place] % (Auto) 6.0 (4.7-12.5) % Eos % (Auto) 2.9 (0.7-5.8) Baso % (Auto) 0.3 (0.1-1.2) % Neut # (Auto) 11.77 H (1.56-6.13) K/mm3 Lymph # (Auto) 2.72 (1.18-3.74) K/mm3 [place] # (Auto) 0.96 H (0.24-0.36) K/mm3 Eos # (Auto) 0.46 H (0.04-0.36) K/mm3 Baso # (Auto) 0.05 (0.01-0.08) K/mm3 Manual Slide Review Abnormal smear Sodium 140 (136-145) mEq/L Potassium 4.7 (3.5-5.1) mEq/L Chloride 102 (98-107) mEq/L Carbon Dioxide 24 (21-32) mEq/L Anion Gap 18.7 H (5-15) BUN 21 H (7-18) mg/dL Creatinine 1.0 (0.55-1.02) mg/dL Est Cr Clr Drug Dosing TNP Estimated GFR (MDRD) 55 (>60) mL/min BUN/Creatinine Ratio 21.0 H (14-18) Glucose 153 H (80-115) mg/dL Lactic Acid (0.4-2.0) mmol/L Calcium 8.4 L (8.5-10.1) mg/dL Ferritin (8-252) ng/ml Total Bilirubin 0.3 (0.2-1.0) mg/dL AST 10 L (15-37) U/L ALT 24 (14-59) U/L Alkaline Phosphatase 76 (46-116) U/L Lactate Dehydrogenase 147 (81-234) U/L Creatine Kinase 68 (26-192) U/L C-Reactive Protein 1.4 H* (<1.0) mg/dL Total Protein 7.6 (6.4-8.2) g/dl Albumin 3.7 (3.4-5.0) g/dl Globulin 3.9 gm/dL Albumin/Globulin Ratio 1.0 (1-2) SARS Virus RNA (PCR) Negative (NEGATIVE) 01/10/20 01/10/20 Range/Units 21:13 21:13 WBC (3.98-10.04) K/mm3 RBC (3.98-5.22) M/mm3 Hgb (11.2-15.7) gm/dl Hct (34.1-44.9) % MCV (79.4-94.8) fl MCH (25.6-32.2) pg MCHC (32.2-35.5) g/dl RDW Std Deviation (36.4-46.3) fL Plt Count (182-369) K/mm3 MPV (9.4-12.3) fl Neut % (Auto) (34.0-71.1) % Lymph % (Auto) (19.3-51.7) % [place] % (Auto) (4.7-12.5) % Eos % (Auto) (0.7-5.8) Baso % (Auto) (0.1-1.2) % Neut # (Auto) (1.56-6.13) K/mm3 Lymph # (Auto) (1.18-3.74) K/mm3 [place] # (Auto) (0.24-0.36) K/mm3 Eos # (Auto) (0.04-0.36) K/mm3 Baso # (Auto) (0.01-0.08) K/mm3 Manual Slide Review Sodium (136-145) mEq/L Potassium (3.5-5.1) mEq/L Chloride (98-107) mEq/L Carbon Dioxide (21-32) mEq/L Anion Gap (5-15) BUN (7-18) mg/dL Creatinine (0.55-1.02) mg/dL Est Cr Clr Drug Dosing Estimated GFR (MDRD) (>60) mL/min BUN/Creatinine Ratio (14-18) Glucose (80-115) mg/dL Lactic Acid 0.9 (0.4-2.0) mmol/L Calcium (8.5-10.1) mg/dL Ferritin 59 (8-252) ng/ml Total Bilirubin (0.2-1.0) mg/dL AST (15-37) U/L ALT (14-59) U/L Alkaline Phosphatase (46-116) U/L Lactate Dehydrogenase (81-234) U/L Creatine Kinase (26-192) U/L C-Reactive Protein (<1.0) mg/dL Total Protein (6.4-8.2) g/dl Albumin (3.4-5.0) g/dl Globulin gm/dL Albumin/Globulin Ratio (1-2) SARS Virus RNA (PCR) (NEGATIVE) Meds: Medications Generic Name Dose Route Start Last Admin Trade Name Freq PRN Reason Stop Dose Admin Ceftriaxone Sodium 1 gm/ 0 gm 01/10/20 22:45 01/10/20 23:18 Lidocaine HCl 2.1 ml IM 2.1 inj Q24H ENID Administration Discontinued Medications Generic Name Dose Route Start Last Admin Trade Name Freq PRN Reason Stop Dose Admin Albuterol 0 gm 01/10/20 20:59 01/10/20 22:02 Proventil Hfa INH 01/10/20 21:00 2 puff ONETIME ONE Administration Albuterol/Ipratropium 3 ml 01/10/20 22:31 01/10/20 23:27 Duoneb 3.0-0.5 Mg/3 Ml NEB 01/10/20 22:32 3 ml ONETIME ONE Administration Budesonide 0.5 mg 01/10/20 22:31 01/10/20 23:27 Pulmicort NEB 01/10/20 22:32 0.5 mg ONETIME ONE Administration Prednisone 40 mg 01/10/20 22:37 01/10/20 23:18 Prednisone PO 01/10/20 22:38 40 mg ONETIME ONE Administration - Radiology Interpretation Free Text/Narrative:: Chest x-ray does not show any acute changes but obvious COPD changes - Re-Assessments/Exams Free Text/Narrative Re-Assessment/Exam: 01/10/20 23:16 I spoke to the patient regarding the negative COVID test. I think she has acute bronchitis with exacerbation of her COPD. As long as she is on 2 L that she has at home her pulse ox is in the high 90s. I am going to place her on some antibiotics I will give her something for her cough and place her on some steroids and she has to take her duo nebs faithfully at home and stay on 2 L of oxygen at home. 01/10/20 23:52 After the breathing treatment she is not coughing any longer. Her pulse ox on 2 L is 100%. She is feeling better. I am going to send her home as above with antibiotics a steroid prescription for DuoNeb medication and something for her cough and she has to stay on her oxygen at home until she feels better. The patient states she understands. Departure - Departure Time of Disposition: 23:24 Disposition: Home, Self-Care 01 Condition: Poor Clinical Impression: COPD exacerbation, Hypoxemia Acute bronchitis Qualifiers: Bronchitis organism: unspecified organism Qualified Code(s): J20.9 - Acute bronchitis, unspecified - Discharge Information *PRESCRIPTION DRUG MONITORING PROGRAM REVIEWED*: Not Applicable *COPY OF PRESCRIPTION DRUG MONITORING REPORT IN PATIENT RUCHI: Not Applicable Prescriptions: Amoxicillin/Potassium Clav [Augmentin 875-125 Tablet] 1 each PO BID #20 tablet Albuterol/Ipratropium [DuoNeb 3.0-0.5 MG/3 ML] 3 ml .XX Q6H PRN #30 neb PRN Reason: Wheezing predniSONE [Prednisone] 50 mg PO QAM #7 tablet Codeine/guaiFENesin [guaiFENesin-Codeine Syrup] 5 ml PO Q6H PRN #1 cup PRN Reason: Cough Instructions: Chronic Obstructive Pulmonary Disease Exacerbation, [id number], Chronic Bronchitis, Adult Referrals: Prerna Mccarthy MD [Primary Care Provider] - Forms: ED Department Discharge Additional Instructions: Tomorrow get the antibiotic and the prednisone and start taking them faithfully, get the DuoNeb treatments and use them every 6 hours for your breathing, get the Robitussin-AC and its 1 teaspoon every 6 hours to calm your cough, you need to stay under 2 L per nasal cannula at home since to keep your oxygen appropriate, follow-up with your family doctor this coming week for recheck, return to the ER if needed. Please note that we did a COVID-19 test on you in the ER and it came up negative. Sepsis Event Note (ED) - Evaluation Sepsis Screening Result: Possible Sepsis Risk - Focused Exam Vital Signs: Vital Signs Temp Pulse Resp BP Pulse Ox Pulse Ox Pulse Ox 01/10/20 23:29 97 87 L 01/10/20 22:05 99 01/10/20 20:00 96.6 F L 119 H 26 H 163/90 H 83 L 98 - My Orders Last 24 Hours: My Active Orders 01/10/20 20:54 Chest 2V [CR] Stat 01/10/20 21:00 RT Post Treatment Assessment [RC] Click to Edit RT Pre-Treatment Assessment [RC] Click to Edit CULTURE STREP A CONFIRMATION [RM] Stat Rapid Strep w/culture conf [STREP SCRN A RAPID W CULT CONF] [RM] Stat 01/10/20 22:31 RT Aerosol Therapy [RC] ASDIRECTED RT Aerosol Therapy [RC] ASDIRECTED 01/10/20 22:45 cefTRIAXone [Rocephin] 1 gm Lidocaine 1% [Xylocaine 1%] 2.1 ml IM Q24H - Assessment/Plan Last 24 Hours: My Active Orders 01/10/20 20:54 Chest 2V [CR] Stat 01/10/20 21:00 RT Post Treatment Assessment [RC] Click to Edit RT Pre-Treatment Assessment [RC] Click to Edit CULTURE STREP A CONFIRMATION [RM] Stat Rapid Strep w/culture conf [STREP SCRN A RAPID W CULT CONF] [RM] Stat 01/10/20 22:31 RT Aerosol Therapy [RC] ASDIRECTED RT Aerosol Therapy [RC] ASDIRECTED 01/10/20 22:45 cefTRIAXone [Rocephin] 1 gm Lidocaine 1% [Xylocaine 1%] 2.1 ml IM Q24H
[2020-01-10] MEDS ORDERED: Albuterol/Ipratropium 3.0-0.5 MG/3 ML Neb Soln NEB ONE (22:31)
[2020-01-10] MEDS ORDERED: Budesonide 0.5 MG/2 ML Neb Susp NEB ONE (22:31)
[2020-01-10] MEDS ORDERED: predniSONE 20 MG Tab PO ONE (22:37)
[2020-01-10] MEDS ORDERED: cefTRIAXone 1 GM, Lidocaine 1% 2.1 ML IM SCH ×2 (22:45)
--- NOTE | 2020-01-11 19:43 | CR ---
Chest: 2 views of the chest were obtained. Comparison: Prior chest x-ray of 11/08/19. Slight scarring is noted within the left lung base. Heart size at the upper limits of normal. Upper mediastinum is normal. No acute parenchymal change is seen. Bony structures show several compression deformities within the mid thoracic spine which are stable. Slight degenerative change is seen within the spine which is stable. Surgical clips are seen within the upper abdomen. Impression: 1. Findings as noted above. 2. Nothing acute is appreciated on 2 view chest x-ray. Diagnostic code #2 This report was dictated in MDT
== END 2020-01-11 | disposition home or self-care (01) ==
LOC: JD.ED 19:57
DX: J20.9 Acute bronchitis, unspecified (principal); J44.1 Chronic obstructive pulmonary disease with (acute) exacerbation; R09.02 Hypoxemia; E78.00 Pure hypercholesterolemia, unspecified; M10.9 Gout, unspecified; E11.40 Type 2 diabetes mellitus with diabetic neuropathy, unspecified; F41.9 Anxiety disorder, unspecified; F32.9 Major depressive disorder, single episode, unspecified; I11.0 Hypertensive heart disease with heart failure; I50.9 Heart failure, unspecified; F17.210 Nicotine dependence, cigarettes, uncomplicated; Z20.828 Contact with and (suspected) exposure to other viral communicable diseases; Z88.8 Allergy status to other drugs, medicaments and biological substances; Z88.1 Allergy status to other antibiotic agents; Z79.82 Long term (current) use of aspirin; Z79.4 Long term (current) use of insulin
CPT/HCPCS: 36415; 71046; 80053; 82550; 82728; 83605; 83615; 85025; 86140; 87081; 87430; 94640; 99285; A9270; J0696; J2001; J7512; U0002; 99284; J7620-GY

== ENCOUNTER 2020-08-18 16:14 | Inpatient (IN) | payer MEDICARE, MEDICAID ==
[2020-08-18] MEDS ORDERED: Sodium Chloride 0.9% 10 ML Syringe FLUSH PRN ×2 (16:38→19:43)
[2020-08-18] MEDS ORDERED: methylPREDNISolone Sodium Succinate 125 MG/2 ML SDV IVPUSH ONE (16:39)
[2020-08-18] MEDS ORDERED: Albuterol/Ipratropium 3.0-0.5 MG/3 ML Neb Soln NEB ONE ×2 (16:39→18:05)
--- NOTE | 2020-08-18 17:51 | EDM.PDOC ---
ED HPI GENERAL MEDICAL PROBLEM - General Chief Complaint: Respiratory Problem Stated Complaint: SOB Time Seen by Provider: 08/18/20 16:25 Source of Information: Reports: Patient History Limitations: Reports: No Limitations - History of Present Illness INITIAL COMMENTS - FREE TEXT/NARRATIVE: The patient presents with shortness of breath and cough. This started a few weeks ago. She has been coughing up some white phlegm. She has no fever but she does have chills. She says her ribs do hurt from coughing. She has no abdominal pain, nausea or vomiting. She has COPD and is on oxygen at home. When she came in her oxygen saturations were 77% on room air. She did not bring her home oxygen because is is hard to lug around. She has no swelling or pain in her legs. She still does smoke. Onset: Gradual Duration: Week(s): Location: Reports: Chest Quality: Reports: Ache Severity: Mild Improves with: Reports: None Worsens with: Reports: None Associated Symptoms: Reports: Chest Pain, Cough, Fever/Chills, Shortness of Breath. Denies: Headaches, Nausea/Vomiting - Related Data Allergies Allergy/AdvReac Type Severity Reaction Status Date / Time insulin detemir Allergy Mild Itching Verified 08/18/20 16:28 [From Levemir] doxycycline Allergy Swelling Verified 08/18/20 16:28 lisinopril Allergy Cough Verified 08/18/20 16:28 Home Meds: Home Meds Allopurinol [Zyloprim] 300 mg PO DAILY 04/18/15 [History] Aspirin [Sacha Chewable Aspirin] 81 mg PO DAILY 04/18/15 [History] Lovastatin 10 mg PO BEDTIME 04/18/15 [History] metFORMIN [Glucophage] 1,000 mg PO BIDMEALS 04/18/15 [History] Meloxicam [Mobic] 15 mg PO DAILY 06/28/17 [History] Insulin Degludec [Tresiba Flextouch U-200] 73 unit SQ DAILY 03/24/18 [History] Sertraline [Zoloft] 100 tab PO DAILY 04/29/18 [History] glipiZIDE [Glipizide ER] 10 mg PO BIDMEALS 04/29/18 [History] Fluticasone Propion/Salmeterol [Advair 250-50 Diskus] 1 each IH BID #1 disk.w.dev 05/02/18 [Rx] buPROPion [buPROPion XL] 150 mg PO DAILY 01/17/19 [History] Dextromethorphan/guaiFENesin [Robitussin DM] 10 ml PO Q4H PRN #20 cup 01/19/19 [Rx] Albuterol/Ipratropium [DuoNeb 3.0-0.5 MG/3 ML] 3 ml .XX Q4H PRN #20 neb 04/26/19 [Rx] Azithromycin [Zithromax] 250 mg PO DAILY 4 Days #4 tab 04/26/19 [Rx] Hydrocodone/Acetaminophen [Hydrocodone-Acetamin 5-325 mg] 1 - 2 each PO Q6HR PRN #20 tablet 05/17/19 [Rx] Amoxicillin 500 mg PO Q8HR #20 capsule 06/10/19 [Rx] predniSONE [Prednisone] 50 mg PO DAILY #5 tablet 06/10/19 [Rx] Azithromycin [Zithromax] 500 mg IV Q24H 5 Days #4 adv 11/08/19 [Rx] predniSONE [Prednisone] 50 mg PO DAILY #5 tablet 11/08/19 [Rx] Albuterol/Ipratropium [DuoNeb 3.0-0.5 MG/3 ML] 3 ml .XX Q6H PRN #30 neb 01/10/20 [Rx] Amoxicillin/Potassium Clav [Augmentin 875-125 Tablet] 1 each PO BID #20 tablet 01/10/20 [Rx] Codeine/guaiFENesin [guaiFENesin-Codeine Syrup] 5 ml PO Q6H PRN #1 cup 01/10/20 [Rx] predniSONE [Prednisone] 50 mg PO QAM #7 tablet 01/10/20 [Rx] Past Medical History HEENT History: Reports: Impaired Vision, Retinal Detachment 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 [employer] History: Reports: Musculoskeletal History: Reports: Back Pain, Chronic, Gout, Other (See Below) Other Musculoskeletal History: Right knee pain Neurological History: Reports: Migraines, Neuropathy, Diabetic Psychiatric History: Reports: Anxiety, Depression Endocrine/Metabolic History: Reports: Diabetes, Type II Hematologic History: Reports: None Immunologic History: Reports: None Oncologic (Cancer) History: Reports: None Dermatologic History: Reports: None - Infectious Disease History Infectious Disease History: Reports: Chicken Pox, Measles, Mumps - Past Surgical History Head Surgeries/Procedures: Reports: None HEENT Surgical History: Reports: Eye Surgery, Other (See Below) Other HEENT Surgeries/Procedures: retinal detachment surgery x2. Cardiovascular Surgical History: Reports: None Respiratory Surgical History: Reports: None GI Surgical History: Reports: Appendectomy, Cholecystectomy Female Surgical History: Reports: Hysterectomy, Lithotripsy/ESWL Endocrine Surgical History: Reports: None Neurological Surgical History: Reports: None Musculoskeletal Surgical History: Reports: Other (See Below) Other Musculoskeletal Surgeries/Procedures:: knee sx bilaterally Oncologic Surgical History: Reports: None Dermatological Surgical History: Reports: None Social & Family History - Family History Family Medical History: No Pertinent Family History Endocrine/Metabolic: Reports: Diabetes, type II - Tobacco Use Tobacco Use Status *Q: Current Every Day Tobacco User Years of Tobacco use: 50 Packs/Tins Daily: 0.2 - Caffeine Use Caffeine Use: Reports: None Other Caffeine Use: diet pepsi - Recreational Drug Use Recreational Drug Use: No - Living Situation & Occupation Living situation: Reports: Single Occupation: Retired ED ROS GENERAL - Review of Systems Review Of Systems: See Below Constitutional: Reports: Chills. Denies: Fever HEENT: Reports: No Symptoms Respiratory: Reports: Shortness of Breath, Cough Cardiovascular: Reports: Chest Pain Endocrine: Reports: No Symptoms GI/Abdominal: Reports: No Symptoms : Reports: No Symptoms Musculoskeletal: Reports: No Symptoms Skin: Reports: No Symptoms ED EXAM, GENERAL - Physical Exam Exam: See Below Exam Limited By: No Limitations General Appearance: Alert, No Apparent Distress Ears: Normal External Exam Nose: Normal Inspection Head: Atraumatic, Normocephalic Neck: Normal Inspection Respiratory/Chest: No Respiratory Distress, Decreased Breath Sounds, Wheezing Cardiovascular: Regular Rate, Rhythm, No Edema, No Murmur GI/Abdominal: Soft, Non-Tender, No Organomegaly, No Mass Back Exam: Normal Inspection Extremities: Normal Inspection Neurological: Alert, Oriented, No Motor/Sensory Deficits #1 Interpretation EKG Date: 08/18/20 Time: 16:30 Rhythm: Other (sinus tachycardia) Rate (Beats/Min): 105 [place]: Normal P-Wave: Present QRS: Normal ST-T: Normal QT: Normal EKG Interpretation Comments: PVC Course - Vital Signs Last Recorded V/S: Last Vital Signs Temp 98 F 08/18/20 16:24 Pulse 105 H 08/18/20 16:24 Resp 30 H 08/18/20 16:24 BP 158/102 H 08/18/20 16:24 Pulse Ox 93 L 08/18/20 18:05 - Orders/Labs/Meds Orders: Active Orders 24 hr Category Date Time Status Cardiac Monitoring [RC] . DIRECTED Care 08/18/20 16:38 Active EKG Documentation Completion [RC] STAT Care 08/18/20 16:38 Active Oxygen Therapy [RC] PRN Care 08/18/20 16:38 Active Peripheral IV Care [RC] . DIRECTED Care 08/18/20 16:38 Active RT Aerosol Therapy [RC] ASDIRECTED Care 08/18/20 16:39 Active RT Aerosol Therapy [RC] ASDIRECTED Care 08/18/20 18:05 Active Chest 1V Frontal [CR] Stat Exams 08/18/20 16:38 Taken COVID-19/FLU A+B [MOLEC] Stat Lab 08/18/20 18:42 Ordered Sodium Chloride 0.9% [Saline Flush] Med 08/18/20 16:38 Active 10 ml FLUSH ASDIRECTED PRN Peripheral IV Insertion Adult [OM.PC] Stat Oth 08/18/20 16:38 Ordered Medication Orders Sodium Chloride (Sodium Chloride 0.9% 10 Ml Syringe) 10 ml FLUSH ASDIRECTED PRN PRN Reason: Keep Vein Open Last Admin: 08/18/20 16:42 Dose: 10 ml Documented by: BRIANNA Labs: Laboratory Tests 08/18/20 08/18/20 Range/Units 16:35 16:35 WBC 15.95 H (3.98-10.04) K/mm3 RBC 4.10 (3.98-5.22) M/mm3 Hgb 11.7 (11.2-15.7) gm/dl Hct 38.9 (34.1-44.9) % MCV 94.9 H (79.4-94.8) fl MCH 28.5 (25.6-32.2) pg MCHC 30.1 L (32.2-35.5) g/dl RDW Std Deviation 46.3 (36.4-46.3) fL Plt Count 215 D (182-369) K/mm3 MPV 9.6 (9.4-12.3) fl Neut % (Auto) 82.8 H (34.0-71.1) % Lymph % (Auto) 9.1 L (19.3-51.7) % [place] % (Auto) 5.6 (4.7-12.5) % Eos % (Auto) 2.3 (0.7-5.8) Baso % (Auto) 0.1 (0.1-1.2) % Neut # (Auto) 13.20 H (1.56-6.13) K/mm3 Lymph # (Auto) 1.45 (1.18-3.74) K/mm3 [place] # (Auto) 0.90 H (0.24-0.36) K/mm3 Eos # (Auto) 0.37 H (0.04-0.36) K/mm3 Baso # (Auto) 0.01 (0.01-0.08) K/mm3 Manual Slide Review Abnormal smear Sodium 142 (136-145) mEq/L Potassium 3.9 (3.5-5.1) mEq/L Chloride 104 (98-107) mEq/L Carbon Dioxide 29 (21-32) mEq/L Anion Gap 12.9 (5-15) BUN 21 H (7-18) mg/dL Creatinine 1.1 H (0.55-1.02) mg/dL Est Cr Clr Drug Dosing 41.09 mL/min Estimated GFR (MDRD) 49 (>60) mL/min BUN/Creatinine Ratio 19.1 H (14-18) Glucose 198 H (80-115) mg/dL Calcium 9.7 (8.5-10.1) mg/dL Total Bilirubin 0.3 (0.2-1.0) mg/dL AST 16 (15-37) U/L ALT 25 (14-59) U/L Alkaline Phosphatase 70 (46-116) U/L Troponin I < 0.017 (0.00-0.056) ng/mL Total Protein 7.3 (6.4-8.2) g/dl Albumin 3.6 (3.4-5.0) g/dl Globulin 3.7 gm/dL Albumin/Globulin Ratio 1.0 (1-2) Meds: Medications Generic Name Dose Route Start Last Admin Trade Name Freq PRN Reason Stop Dose Admin Sodium Chloride 10 ml 08/18/20 16:38 08/18/20 16:42 Sodium Chloride 0.9% 10 Ml Syringe FLUSH 10 ml ASDIRECTED PRN Administration Keep Vein Open Discontinued Medications Generic Name Dose Route Start Last Admin Trade Name Freq PRN Reason Stop Dose Admin Albuterol/Ipratropium 3 ml 08/18/20 16:39 08/18/20 17:01 Albuterol/Ipratropium 3.0-0.5 Mg/3 Ml Neb Soln NEB 08/18/20 16:40 3 ml ONETIME ONE Administration Albuterol/Ipratropium 3 ml 08/18/20 18:05 08/18/20 18:28 Albuterol/Ipratropium 3.0-0.5 Mg/3 Ml Neb Soln NEB 08/18/20 18:06 3 ml ONETIME ONE Administration Methylprednisolone Sodium Succinate 125 mg 08/18/20 16:39 08/18/20 16:48 Methylprednisolone Sodium Succinate 125 Mg/2 Ml Sdv IVPUSH 08/18/20 16:40 125 mg ONETIME ONE Administration - Re-Assessments/Exams Free Text/Narrative Re-Assessment/Exam: 08/18/20 17:51 I ordered oxygen, IV saline lock, solu-medrol 125mg IV, duoneb labs, EKG, and CXR. 08/18/20 18:46 Her CXR shows no infiltrates. Her EKG shows a NSR with no acute changes. Her WBC was elevated at 15.9. Her creatinine was slightly elevated at 1.1. Her glucose was elevated at 198. Her troponin is negative. 08/18/20 18:48 She is moving more air but still wheezing. I gave her another treatment. After the treatment my nurse got her up to the bedside camode and she was struggling to breath. I do not feel it is safe to send her home. I called Dr Fisher and he agreed tot he admission. Departure - Departure Time of Disposition: 18:55 Disposition: Admitted As Inpatient 66 Condition: Fair Clinical Impression: Acute exacerbation of chronic obstructive pulmonary disease (COPD), Hypoxia - Discharge Information Referrals: Prerna Mccarthy MD [Primary Care Provider] - Forms: ED Department Discharge Sepsis Event Note (ED) - Evaluation Sepsis Screening Result: No Definite Risk - Focused Exam Vital Signs: Vital Signs Temp Pulse Resp BP Pulse Ox Pulse Ox 08/18/20 18:05 93 L 08/18/20 16:39 95 08/18/20 16:24 98 F 105 H 30 H 158/102 H 100 - My Orders Last 24 Hours: My Active Orders 08/18/20 16:38 Cardiac Monitoring [RC] . DIRECTED EKG Documentation Completion [RC] STAT Oxygen Therapy [RC] PRN Peripheral IV Care [RC] . DIRECTED Chest 1V Frontal [CR] Stat Sodium Chloride 0.9% [Saline Flush] 10 ml FLUSH ASDIRECTED PRN Peripheral IV Insertion Adult [OM.PC] Stat 08/18/20 16:39 RT Aerosol Therapy [RC] ASDIRECTED 08/18/20 18:05 RT Aerosol Therapy [RC] ASDIRECTED 08/18/20 18:42 COVID-19/FLU A+B [MOLEC] Stat - Assessment/Plan Last 24 Hours: My Active Orders 08/18/20 16:38 Cardiac Monitoring [RC] . DIRECTED EKG Documentation Completion [RC] STAT Oxygen Therapy [RC] PRN Peripheral IV Care [RC] . DIRECTED Chest 1V Frontal [CR] Stat Sodium Chloride 0.9% [Saline Flush] 10 ml FLUSH ASDIRECTED PRN Peripheral IV Insertion Adult [OM.PC] Stat 08/18/20 16:39 RT Aerosol Therapy [RC] ASDIRECTED 08/18/20 18:05 RT Aerosol Therapy [RC] ASDIRECTED 08/18/20 18:42 COVID-19/FLU A+B [MOLEC] Stat
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
[2020-08-18 19:36] LABS: CORONAVIRUS COVID-19 NAA NEGATIVE (NEGATIVE)
[2020-08-18] MEDS ORDERED: Albuterol/Ipratropium 3.0-0.5 MG/3 ML Neb Soln NEB PRN (19:43)
[2020-08-18] MEDS ORDERED: Magnesium Hydroxide 400 MG/5 ML Susp 30 ML Cup PO PRN (19:43)
[2020-08-18] MEDS: Formoterol/Mometasone 200-5 MCG 8.8 GM Inhaler IH SCH (21:17)
[2020-08-18] MEDS: Enoxaparin 40 MG/0.4 ML Syringe SUBCUT SCH (22:01)
[2020-08-18] MEDS: cefTRIAXone 1 GM in Sodium Chloride 0.9% 100 ML IV SCH (22:03)
[2020-08-18] MEDS: Sodium Chloride 0.9% 1,000 ML IV SCH (22:03)
[2020-08-19] MEDS: Acetaminophen 325 MG Tab PO PRN ×2 (05:35→16:00)
[2020-08-19] MEDS: Sodium Chloride 0.9% 1,000 ML IV SCH ×2 (05:37→14:00)
[2020-08-19] MEDS: metFORMIN 500 MG Tab PO SCH ×3 (05:42→16:05)
[2020-08-19] MEDS ORDERED: GLIPIZIDE 10 MG PO SCH (07:00)
--- NOTE | 2020-08-19 07:59 | CR ---
Chest: Portable view of the chest was obtained. Comparison: Prior chest x-ray on 01/10/20. Heart size and mediastinum are within normal limits. Minimal scarring is seen within the left lung base. Lungs otherwise are clear. Bony structure shows nothing acute. Impression: 1. Nothing acute is appreciated on portable chest x-ray. Diagnostic code #1
[2020-08-19] MEDS ORDERED: Insulin Glarg,Human.Rec.Analog 100 Unit/ML SUBCUT SCH ×2 (09:00→18:00)
[2020-08-19] MEDS ORDERED: Allopurinol 300 MG Tab PO SCH (09:00)
[2020-08-19] MEDS: Formoterol/Mometasone 200-5 MCG 8.8 GM Inhaler IH SCH ×2 (09:26→20:09)
[2020-08-19] MEDS ORDERED: Nicotine Polacrilex 2 MG Gum CHEW PRN (10:57)
[2020-08-19] MEDS: Sertraline 50 MG Tab PO SCH (11:25)
[2020-08-19] MEDS: Nicotine 7 MG/24 Hr Patch TRDERM SCH (11:26)
[2020-08-19] MEDS: buPROPion 150 MG Tab.ER PO SCH (11:26)
[2020-08-19] MEDS: predniSONE 20 MG Tab PO SCH (11:27)
[2020-08-19] MEDS: Enoxaparin 40 MG/0.4 ML Syringe SUBCUT SCH (11:30)
[2020-08-19] MEDS: Aspirin 81 MG Tab.EC PO SCH (11:30)
--- NOTE | 2020-08-19 12:33 | PCM.PN ---
- General Info Date of Service: 08/19/20 Admission Dx/Problem (Free Text): copd/bronchitis Subjective Update: 08/19/20 afebrile vss, stable night but did not sleep well . lungs clear and diminished with minimal wheezes.o2 sats stable on 2 liters. tolerateing up to b.r. cor rrr, no s3/4, dizziness resolved. i.v. at 100 cc hour. abd benign. neuro aox4/no findings. b.s 221 last night and switched to sliding scale humolog. assess /plan 1) copd improved although still tight. decrease i.v /cont nebs rtc/ stop i.v antibiotics and cont oral starting in am cont prednisone 40 mg today and start taper in am if cont. to improve. 2)control diabetes with sliding scale and increase walking as tolerated(she is very sedentary ) 3) education 4)nicotine cessation patch and gum addressed anxiety a nd insomnia and is somewhat chronic. 5) other risk factor control addressed . boh Functional Status: Reports: Pain Controlled, Tolerating Diet - Review of Systems General: Reports: No Symptoms HEENT: Reports: No Symptoms Pulmonary: Reports: No Symptoms, Shortness of Breath, Cough, Wheezing Cardiovascular: Reports: No Symptoms Gastrointestinal: Reports: No Symptoms Genitourinary: Reports: No Symptoms Musculoskeletal: Reports: No Symptoms Skin: Reports: No Symptoms Neurological: Reports: No Symptoms Psychiatric: Reports: No Symptoms - Patient Data Vitals - Most Recent: Last Vital Signs Temp 36.6 C 08/19/20 10:51 Pulse 77 08/19/20 10:51 Resp 16 08/19/20 10:51 BP 137/80 08/19/20 10:51 Pulse Ox 99 08/19/20 10:51 Weight - Most Recent: 101.605 kg I&O - Last 24 Hours: Intake & Output 08/18/20 08/19/20 08/19/20 22:59 06:59 14:59 Intake Total 1840 360 Output Total 175 Balance 1665 360 Lab Results Last 24 Hours: Laboratory Results - last 24 hr 08/18/20 08/18/20 08/18/20 Range/Units 16:35 16:35 18:54 WBC 15.95 H (3.98-10.04) K/mm3 RBC 4.10 (3.98-5.22) M/mm3 Hgb 11.7 (11.2-15.7) gm/dl Hct 38.9 (34.1-44.9) % MCV 94.9 H (79.4-94.8) fl MCH 28.5 (25.6-32.2) pg MCHC 30.1 L (32.2-35.5) g/dl RDW Std Deviation 46.3 (36.4-46.3) fL Plt Count 215 D (182-369) K/mm3 MPV 9.6 (9.4-12.3) fl Neut % (Auto) 82.8 H (34.0-71.1) % Lymph % (Auto) 9.1 L (19.3-51.7) % [place] % (Auto) 5.6 (4.7-12.5) % Eos % (Auto) 2.3 (0.7-5.8) Baso % (Auto) 0.1 (0.1-1.2) % Neut # (Auto) 13.20 H (1.56-6.13) K/mm3 Lymph # (Auto) 1.45 (1.18-3.74) K/mm3 [place] # (Auto) 0.90 H (0.24-0.36) K/mm3 Eos # (Auto) 0.37 H (0.04-0.36) K/mm3 Baso # (Auto) 0.01 (0.01-0.08) K/mm3 Manual Slide Review Abnormal smear Sodium 142 (136-145) mEq/L Potassium 3.9 (3.5-5.1) mEq/L Chloride 104 (98-107) mEq/L Carbon Dioxide 29 (21-32) mEq/L Anion Gap 12.9 (5-15) BUN 21 H (7-18) mg/dL Creatinine 1.1 H (0.55-1.02) mg/dL Est Cr Clr Drug Dosing 41.09 mL/min Estimated GFR (MDRD) 49 (>60) mL/min BUN/Creatinine Ratio 19.1 H (14-18) Glucose 198 H (80-115) mg/dL POC Glucose (70-99) mg/dL Lactic Acid (0.4-2.0) mmol/L Calcium 9.7 (8.5-10.1) mg/dL Phosphorus (2.6-4.7) mg/dL Magnesium (1.8-2.4) mg/dl Total Bilirubin 0.3 (0.2-1.0) mg/dL AST 16 (15-37) U/L ALT 25 (14-59) U/L Alkaline Phosphatase 70 (46-116) U/L Troponin I < 0.017 (0.00-0.056) ng/mL Total Protein 7.3 (6.4-8.2) g/dl Albumin 3.6 (3.4-5.0) g/dl Globulin 3.7 gm/dL Albumin/Globulin Ratio 1.0 (1-2) Influenza Type A RNA Negative (NEGATIVE) Influenza Type B RNA Negative (NEGATIVE) SARS-CoV-2 RNA (MARY) Negative (NEGATIVE) 08/18/20 08/19/20 08/19/20 Range/Units 23:12 04:06 04:06 WBC 12.70 H (3.98-10.04) K/mm3 RBC 3.88 L (3.98-5.22) M/mm3 Hgb 11.1 L (11.2-15.7) gm/dl Hct 36.6 (34.1-44.9) % MCV 94.3 (79.4-94.8) fl MCH 28.6 (25.6-32.2) pg MCHC 30.3 L (32.2-35.5) g/dl RDW Std Deviation 45.7 (36.4-46.3) fL Plt Count 206 (182-369) K/mm3 MPV 9.7 (9.4-12.3) fl Neut % (Auto) 90.6 H (34.0-71.1) % Lymph % (Auto) 5.4 L (19.3-51.7) % [place] % (Auto) 3.7 L (4.7-12.5) % Eos % (Auto) 0 L (0.7-5.8) Baso % (Auto) 0.1 (0.1-1.2) % Neut # (Auto) 11.52 H (1.56-6.13) K/mm3 Lymph # (Auto) 0.68 L (1.18-3.74) K/mm3 [place] # (Auto) 0.47 H (0.24-0.36) K/mm3 Eos # (Auto) 0.00 L (0.04-0.36) K/mm3 Baso # (Auto) 0.01 (0.01-0.08) K/mm3 Manual Slide Review Abnormal smear Sodium 141 (136-145) mEq/L Potassium 4.8 (3.5-5.1) mEq/L Chloride 104 (98-107) mEq/L Carbon Dioxide 28 (21-32) mEq/L Anion Gap 13.8 (5-15) BUN 23 H (7-18) mg/dL Creatinine 1.0 (0.55-1.02) mg/dL Est Cr Clr Drug Dosing 43.30 mL/min Estimated GFR (MDRD) 55 (>60) mL/min BUN/Creatinine Ratio 23.0 H (14-18) Glucose 216 H (80-115) mg/dL POC Glucose 222 H (70-99) mg/dL Lactic Acid (0.4-2.0) mmol/L Calcium 8.6 (8.5-10.1) mg/dL Phosphorus 3.4 (2.6-4.7) mg/dL Magnesium 1.6 L (1.8-2.4) mg/dl Total Bilirubin 0.2 (0.2-1.0) mg/dL AST 13 L (15-37) U/L ALT 23 (14-59) U/L Alkaline Phosphatase 66 (46-116) U/L Troponin I < 0.017 (0.00-0.056) ng/mL Total Protein 7.1 (6.4-8.2) g/dl Albumin 3.3 L (3.4-5.0) g/dl Globulin 3.8 gm/dL Albumin/Globulin Ratio 0.9 L (1-2) Influenza Type A RNA (NEGATIVE) Influenza Type B RNA (NEGATIVE) SARS-CoV-2 RNA (MARY) (NEGATIVE) 08/19/20 08/19/20 08/19/20 Range/Units 04:06 06:18 10:49 WBC (3.98-10.04) K/mm3 RBC (3.98-5.22) M/mm3 Hgb (11.2-15.7) gm/dl Hct (34.1-44.9) % MCV (79.4-94.8) fl MCH (25.6-32.2) pg MCHC (32.2-35.5) g/dl RDW Std Deviation (36.4-46.3) fL Plt Count (182-369) K/mm3 MPV (9.4-12.3) fl Neut % (Auto) (34.0-71.1) % Lymph % (Auto) (19.3-51.7) % [place] % (Auto) (4.7-12.5) % Eos % (Auto) (0.7-5.8) Baso % (Auto) (0.1-1.2) % Neut # (Auto) (1.56-6.13) K/mm3 Lymph # (Auto) (1.18-3.74) K/mm3 [place] # (Auto) (0.24-0.36) K/mm3 Eos # (Auto) (0.04-0.36) K/mm3 Baso # (Auto) (0.01-0.08) K/mm3 Manual Slide Review Sodium (136-145) mEq/L Potassium (3.5-5.1) mEq/L Chloride (98-107) mEq/L Carbon Dioxide (21-32) mEq/L Anion Gap (5-15) BUN (7-18) mg/dL Creatinine (0.55-1.02) mg/dL Est Cr Clr Drug Dosing mL/min Estimated GFR (MDRD) (>60) mL/min BUN/Creatinine Ratio (14-18) Glucose (80-115) mg/dL POC Glucose 193 H 122 H (70-99) mg/dL Lactic Acid 1.8 (0.4-2.0) mmol/L Calcium (8.5-10.1) mg/dL Phosphorus (2.6-4.7) mg/dL Magnesium (1.8-2.4) mg/dl Total Bilirubin (0.2-1.0) mg/dL AST (15-37) U/L ALT (14-59) U/L Alkaline Phosphatase (46-116) U/L Troponin I (0.00-0.056) ng/mL Total Protein (6.4-8.2) g/dl Albumin (3.4-5.0) g/dl Globulin gm/dL Albumin/Globulin Ratio (1-2) Influenza Type A RNA (NEGATIVE) Influenza Type B RNA (NEGATIVE) SARS-CoV-2 RNA (MARY) (NEGATIVE) Med Orders - Current: Current Medications Acetaminophen (Acetaminophen 325 Mg Tab) 650 mg PO Q4H PRN PRN Reason: Pain Last Admin: 08/19/20 05:35 Dose: 650 mg Documented by: Hydrocodone Bitart/Acetaminophen (Acetaminophen/Hydrocodone 325-5 Mg Tab) 1 - 2 tab PO Q6H PRN PRN Reason: Pain Albuterol/Ipratropium (Albuterol/Ipratropium 3.0-0.5 Mg/3 Ml Neb Soln) 3 ml NEB Q6H PRN PRN Reason: Wheezing Allopurinol (Allopurinol 100 Mg Tab) 100 mg PO DAILY [facility] Aspirin (Aspirin 81 Mg Tab.Ec) 81 mg PO DAILY [facility] Last Admin: 08/19/20 11:30 Dose: 81 mg Documented by: Bupropion HCl (Bupropion 150 Mg Tab.Er) 150 mg PO DAILY [facility] Last Admin: 08/19/20 11:26 Dose: 150 mg Documented by: Enoxaparin Sodium (Enoxaparin 40 Mg/0.4 Ml Syringe) 40 mg SUBCUT DAILY [facility] Last Admin: 08/19/20 11:30 Dose: 40 mg Documented by: Guaifenesin/Phenylephrine HCl (Guaifenesin/Dextromethorphan 100-10 Mg/5 Ml Soln 5 Ml Cup) 10 ml PO Q4H PRN PRN Reason: Cough Sodium Chloride (Normal Saline) 1,000 mls @ 125 mls/hr IV ASDIRECTED [facility] Last Admin: 08/19/20 05:37 Dose: 125 mls/hr Documented by: Ceftriaxone Sodium 1 gm/ (Sodium Chloride) 100 mls @ 200 mls/hr IV Q24H [facility] Last Admin: 08/18/20 22:03 Dose: 200 mls/hr Documented by: Magnesium Sulfate/Dextrose 1 (gm/ Premix) 100 mls @ 100 mls/hr IV Q1H [facility] Stop: 08/19/20 12:59 Last Admin: 08/19/20 11:30 Dose: 100 mls/hr Documented by: Insulin Glargine (Insulin Glarg,Human.Rec.Analog 100 Unit/Ml) 64 unit SUBCUT 1800 [facility] Magnesium Hydroxide (Magnesium Hydroxide 400 Mg/5 Ml Susp 30 Ml Cup) 30 ml PO Q12H PRN PRN Reason: Constipation Metformin HCl (Metformin 500 Mg Tab) 1,000 mg PO BIDMEALS [facility] Last Admin: 08/19/20 06:26 Dose: Not Given Documented by: Miscellaneous Information (Remove And Replace Nicotine Patch) 1 ea TRDERM DAILY [facility] Mometasone Furoate/Formoterol Fumar (Formoterol/Mometasone 200-5 Mcg 8.8 Gm Inhaler) 0 puff IH BID [facility] Last Admin: 08/19/20 09:26 Dose: 2 puff Documented by: Nicotine (Nicotine 7 Mg/24 Hr Patch) 7 mg TRDERM DAILY [facility] Last Admin: 08/19/20 11:26 Dose: 7 mg Documented by: Nicotine Polacrilex (Nicotine Polacrilex 2 Mg Gum) 2 mg CHEW Q2H PRN PRN Reason: smoking cessation Prednisone (Prednisone 20 Mg Tab) 50 mg PO DAILY [facility] Last Admin: 08/19/20 11:27 Dose: 50 mg Documented by: Sertraline HCl (Sertraline 50 Mg Tab) 100 mg PO DAILY [facility] Last Admin: 08/19/20 11:25 Dose: 100 mg Documented by: Simvastatin (Simvastatin 10 Mg Tab) 5 mg PO BEDTIME [facility] Sodium Chloride (Sodium Chloride 0.9% 10 Ml Syringe) 10 ml FLUSH ASDIRECTED PRN PRN Reason: Keep Vein Open Discontinued Medications Albuterol/Ipratropium (Albuterol/Ipratropium 3.0-0.5 Mg/3 Ml Neb Soln) 3 ml NEB ONETIME ONE Stop: 08/18/20 16:40 Last Admin: 08/18/20 17:01 Dose: 3 ml Documented by: Albuterol/Ipratropium (Albuterol/Ipratropium 3.0-0.5 Mg/3 Ml Neb Soln) 3 ml NEB ONETIME ONE Stop: 08/18/20 18:06 Last Admin: 08/18/20 18:28 Dose: 3 ml Documented by: Albuterol/Ipratropium (Albuterol/Ipratropium 3.0-0.5 Mg/3 Ml Neb Soln) 3 ml NEB Q4H PRN PRN Reason: Shortness Of Breath/wheezing Allopurinol (Allopurinol 300 Mg Tab) 300 mg PO DAILY [facility] Last Admin: 08/19/20 11:44 Dose: Not Given Documented by: Insulin Glargine (Insulin Glarg,Human.Rec.Analog 100 Unit/Ml) 73 unit SUBCUT DAILY [facility] Methylprednisolone Sodium Succinate (Methylprednisolone Sodium Succinate 125 Mg/2 Ml Sdv) 125 mg IVPUSH ONETIME ONE Stop: 08/18/20 16:40 Last Admin: 08/18/20 16:48 Dose: 125 mg Documented by: Non-Formulary Medication (Glipizide) 10 mg PO BIDMEALS [facility] Sodium Chloride (Sodium Chloride 0.9% 10 Ml Syringe) 10 ml FLUSH ASDIRECTED PRN PRN Reason: Keep Vein Open Last Admin: 08/18/20 16:42 Dose: 10 ml Documented by: - Exam Quality Assessment: Supplemental Oxygen General: Alert, Oriented HEENT: Pupils Equal, Pupils Reactive, EOMI, Mucous Membr. Moist/[place] Neck: Supple Lungs: Clear to Auscultation, Normal Respiratory Effort, Decreased Breath Sounds, Wheezing Cardiovascular: Regular Rate, Regular Rhythm GI/Abdominal Exam: Normal Bowel Sounds, Soft, Non-Tender, No Organomegaly, No Distention, No Abnormal Bruit, No Mass, Pelvis Stable (Female) Exam: Normal External Exam, Normal Speculum Exam, Normal Bimanual Exam Back Exam: Normal Inspection, Full Range of Motion Extremities: Normal Inspection, Normal Range of Motion, Non-Tender, No Pedal Edema, Normal Capillary Refill Skin: Warm, Dry, Intact Wound/Incisions: Healing Well Neurological: No New Focal Deficit Psy/Mental Status: Alert, Normal Affect, Normal Mood - Patient Data Lab Results Last 24 hrs: Laboratory Results - last 24 hr 08/18/20 08/18/20 08/18/20 Range/Units 16:35 16:35 18:54 WBC 15.95 H (3.98-10.04) K/mm3 RBC 4.10 (3.98-5.22) M/mm3 Hgb 11.7 (11.2-15.7) gm/dl Hct 38.9 (34.1-44.9) % MCV 94.9 H (79.4-94.8) fl MCH 28.5 (25.6-32.2) pg MCHC 30.1 L (32.2-35.5) g/dl RDW Std Deviation 46.3 (36.4-46.3) fL Plt Count 215 D (182-369) K/mm3 MPV 9.6 (9.4-12.3) fl Neut % (Auto) 82.8 H (34.0-71.1) % Lymph % (Auto) 9.1 L (19.3-51.7) % [place] % (Auto) 5.6 (4.7-12.5) % Eos % (Auto) 2.3 (0.7-5.8) Baso % (Auto) 0.1 (0.1-1.2) % Neut # (Auto) 13.20 H (1.56-6.13) K/mm3 Lymph # (Auto) 1.45 (1.18-3.74) K/mm3 [place] # (Auto) 0.90 H (0.24-0.36) K/mm3 Eos # (Auto) 0.37 H (0.04-0.36) K/mm3 Baso # (Auto) 0.01 (0.01-0.08) K/mm3 Manual Slide Review Abnormal smear Sodium 142 (136-145) mEq/L Potassium 3.9 (3.5-5.1) mEq/L Chloride 104 (98-107) mEq/L Carbon Dioxide 29 (21-32) mEq/L Anion Gap 12.9 (5-15) BUN 21 H (7-18) mg/dL Creatinine 1.1 H (0.55-1.02) mg/dL Est Cr Clr Drug Dosing 41.09 mL/min Estimated GFR (MDRD) 49 (>60) mL/min BUN/Creatinine Ratio 19.1 H (14-18) Glucose 198 H (80-115) mg/dL POC Glucose (70-99) mg/dL Lactic Acid (0.4-2.0) mmol/L Calcium 9.7 (8.5-10.1) mg/dL Phosphorus (2.6-4.7) mg/dL Magnesium (1.8-2.4) mg/dl Total Bilirubin 0.3 (0.2-1.0) mg/dL AST 16 (15-37) U/L ALT 25 (14-59) U/L Alkaline Phosphatase 70 (46-116) U/L Troponin I < 0.017 (0.00-0.056) ng/mL Total Protein 7.3 (6.4-8.2) g/dl Albumin 3.6 (3.4-5.0) g/dl Globulin 3.7 gm/dL Albumin/Globulin Ratio 1.0 (1-2) Influenza Type A RNA Negative (NEGATIVE) Influenza Type B RNA Negative (NEGATIVE) SARS-CoV-2 RNA (MARY) Negative (NEGATIVE) 08/18/20 08/19/20 08/19/20 Range/Units 23:12 04:06 04:06 WBC 12.70 H (3.98-10.04) K/mm3 RBC 3.88 L (3.98-5.22) M/mm3 Hgb 11.1 L (11.2-15.7) gm/dl Hct 36.6 (34.1-44.9) % MCV 94.3 (79.4-94.8) fl MCH 28.6 (25.6-32.2) pg MCHC 30.3 L (32.2-35.5) g/dl RDW Std Deviation 45.7 (36.4-46.3) fL Plt Count 206 (182-369) K/mm3 MPV 9.7 (9.4-12.3) fl Neut % (Auto) 90.6 H (34.0-71.1) % Lymph % (Auto) 5.4 L (19.3-51.7) % [place] % (Auto) 3.7 L (4.7-12.5) % Eos % (Auto) 0 L (0.7-5.8) Baso % (Auto) 0.1 (0.1-1.2) % Neut # (Auto) 11.52 H (1.56-6.13) K/mm3 Lymph # (Auto) 0.68 L (1.18-3.74) K/mm3 [place] # (Auto) 0.47 H (0.24-0.36) K/mm3 Eos # (Auto) 0.00 L (0.04-0.36) K/mm3 Baso # (Auto) 0.01 (0.01-0.08) K/mm3 Manual Slide Review Abnormal smear Sodium 141 (136-145) mEq/L Potassium 4.8 (3.5-5.1) mEq/L Chloride 104 (98-107) mEq/L Carbon Dioxide 28 (21-32) mEq/L Anion Gap 13.8 (5-15) BUN 23 H (7-18) mg/dL Creatinine 1.0 (0.55-1.02) mg/dL Est Cr Clr Drug Dosing 43.30 mL/min Estimated GFR (MDRD) 55 (>60) mL/min BUN/Creatinine Ratio 23.0 H (14-18) Glucose 216 H (80-115) mg/dL POC Glucose 222 H (70-99) mg/dL Lactic Acid (0.4-2.0) mmol/L Calcium 8.6 (8.5-10.1) mg/dL Phosphorus 3.4 (2.6-4.7) mg/dL Magnesium 1.6 L (1.8-2.4) mg/dl Total Bilirubin 0.2 (0.2-1.0) mg/dL AST 13 L (15-37) U/L ALT 23 (14-59) U/L Alkaline Phosphatase 66 (46-116) U/L Troponin I < 0.017 (0.00-0.056) ng/mL Total Protein 7.1 (6.4-8.2) g/dl Albumin 3.3 L (3.4-5.0) g/dl Globulin 3.8 gm/dL Albumin/Globulin Ratio 0.9 L (1-2) Influenza Type A RNA (NEGATIVE) Influenza Type B RNA (NEGATIVE) SARS-CoV-2 RNA (MARY) (NEGATIVE) 08/19/20 08/19/20 08/19/20 Range/Units 04:06 06:18 10:49 WBC (3.98-10.04) K/mm3 RBC (3.98-5.22) M/mm3 Hgb (11.2-15.7) gm/dl Hct (34.1-44.9) % MCV (79.4-94.8) fl MCH (25.6-32.2) pg MCHC (32.2-35.5) g/dl RDW Std Deviation (36.4-46.3) fL Plt Count (182-369) K/mm3 MPV (9.4-12.3) fl Neut % (Auto) (34.0-71.1) % Lymph % (Auto) (19.3-51.7) % [place] % (Auto) (4.7-12.5) % Eos % (Auto) (0.7-5.8) Baso % (Auto) (0.1-1.2) % Neut # (Auto) (1.56-6.13) K/mm3 Lymph # (Auto) (1.18-3.74) K/mm3 [place] # (Auto) (0.24-0.36) K/mm3 Eos # (Auto) (0.04-0.36) K/mm3 Baso # (Auto) (0.01-0.08) K/mm3 Manual Slide Review Sodium (136-145) mEq/L Potassium (3.5-5.1) mEq/L Chloride (98-107) mEq/L Carbon Dioxide (21-32) mEq/L Anion Gap (5-15) BUN (7-18) mg/dL Creatinine (0.55-1.02) mg/dL Est Cr Clr Drug Dosing mL/min Estimated GFR (MDRD) (>60) mL/min BUN/Creatinine Ratio (14-18) Glucose (80-115) mg/dL POC Glucose 193 H 122 H (70-99) mg/dL Lactic Acid 1.8 (0.4-2.0) mmol/L Calcium (8.5-10.1) mg/dL Phosphorus (2.6-4.7) mg/dL Magnesium (1.8-2.4) mg/dl Total Bilirubin (0.2-1.0) mg/dL AST (15-37) U/L ALT (14-59) U/L Alkaline Phosphatase (46-116) U/L Troponin I (0.00-0.056) ng/mL Total Protein (6.4-8.2) g/dl Albumin (3.4-5.0) g/dl Globulin gm/dL Albumin/Globulin Ratio (1-2) Influenza Type A RNA (NEGATIVE) Influenza Type B RNA (NEGATIVE) SARS-CoV-2 RNA (MARY) (NEGATIVE) Result Diagrams: 08/19/20 04:06 08/19/20 04:06 Sepsis Event Note - Evaluation Sepsis Screening Result: No Definite Risk - Focused Exam Vital Signs: Vital Signs Temp Pulse Resp BP Pulse Ox Pulse Ox 08/19/20 10:51 36.6 C 77 16 137/80 99 08/19/20 09:27 91 L 08/19/20 07:31 36.6 C 73 20 123/91 H 98 08/19/20 06:19 95 08/19/20 03:57 36.6 C 74 14 154/66 H 93 L - Problem List & Annotations (1) Chronic renal insufficiency, stage III (moderate) SNOMED Code(s): 667925369 Code(s): N18.30 - CHRONIC KIDNEY DISEASE, STAGE 3 UNSPECIFIED Status: Acute Priority: Medium Current Visit: Yes Onset Date: ~08/18/20 (2) Anemia SNOMED Code(s): 882353540 Code(s): D64.9 - ANEMIA, UNSPECIFIED Status: Acute Priority: Medium Current Visit: Yes Onset Date: ~08/18/20 Qualifiers: Anemia type: unspecified type Qualified Code(s): D64.9 - Anemia, unspecified (3) Acute exacerbation of chronic obstructive pulmonary disease (COPD) SNOMED Code(s): 785072346 Code(s): J44.1 - CHRONIC OBSTRUCTIVE PULMONARY DISEASE W (ACUTE) EXACERBATION Status: Acute Priority: High Current Visit: Yes Onset Date: ~08/18/20 Annotation/Comment:: started nebs and steriods and rocephin and monitor response (4) Hypoxia SNOMED Code(s): 579083197 Code(s): R09.02 - HYPOXEMIA Status: Acute Priority: High Current Visit: Yes Onset Date: ~08/18/20 Annotation/Comment:: very sedentary and needs further education (5) Chest wall pain SNOMED Code(s): 216009216 Code(s): R07.89 - OTHER CHEST PAIN Status: Acute Priority: Low Current Visit: No Onset Date: ~08/18/20 (6) Hyperglycemia due to type 2 diabetes mellitus SNOMED Code(s): 374187121568620, 750323707437379 Code(s): E11.65 - TYPE 2 DIABETES MELLITUS WITH HYPERGLYCEMIA Status: Acute Priority: High Current Visit: No Onset Date: ~08/18/20 Qualifiers: Diabetes mellitus group home insulin use: with 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 (7) Nephrolithiasis SNOMED Code(s): 53866087 Code(s): N20.0 - CALCULUS OF KIDNEY Status: Acute Priority: Low Current Visit: No Onset Date: ~08/18/20 Annotation/Comment:: no current symptoms but known oxalate stones and discussed low ox diet. (8) GERARDO (obstructive sleep apnea) SNOMED Code(s): 08126324 Code(s): G47.33 - OBSTRUCTIVE SLEEP APNEA (ADULT) (PEDIATRIC) Status: Acute Priority: High Current Visit: No Onset Date: ~08/18/20 Annotation/Comm ent:: - w/o CPAP (9) (HFpEF) heart failure with preserved ejection fraction SNOMED Code(s): 067686721 Code(s): I50.30 - UNSPECIFIED DIASTOLIC (CONGESTIVE) HEART FAILURE Status: Chronic Priority: Medium Current Visit: No Onset Date: ~08/18/20 Qualifiers: Heart failure chronicity: chronic Qualified Code(s): I50.32 - Chronic diastolic (congestive) heart failure (10) Morbid obesity with BMI of 40.0-44.9, adult SNOMED Code(s): 945476739, 43017080517591 Code(s): E66.01 - MORBID (SEVERE) OBESITY DUE TO EXCESS CALORIES; Z68.41 - BODY MASS INDEX [BMI]40.0-44.9, ADULT Status: Chronic Priority: Medium Current Visit: No Onset Date: ~08/18/20 (11) Tobacco use disorder SNOMED Code(s): 324158997 Code(s): F17.200 - NICOTINE DEPENDENCE, UNSPECIFIED, UNCOMPLICATED Status: Chronic Priority: Medium Current Visit: No Onset Date: ~08/18/20 - Problem List Review Problem List Initiated/Reviewed/Updated: Yes - My Orders Last 24 Hours: My Active Orders 08/18/20 19:43 Patient Status [ADT] Routine Bedrest Bathroom Privileges [RC] BID Blood Glucose Check, Bedside [RC] WITHMEALSANDBED EKG Documentation Completion [RC] 0700 Up to Chair [RC] BID VTE/DVT Education [RC] DAILY Vital Signs [RC] Q4HR Consult to Diabetic Nurse Specialist [CONS] Routine Consult to Electromechanisms Design Drafter [CONS] Routine Magnesium Hydroxide [Milk of Magnesia] 30 ml PO Q12H PRN Sodium Chloride 0.9% [Saline Flush] 10 ml FLUSH ASDIRECTED PRN Glucose Management Sub Q Reflex [OM.PC] Click to Edit Peripheral IV Insertion Adult [OM.PC] Routine Resuscitation Status Routine 08/18/20 19:45 Sodium Chloride 0.9% [Normal Saline] 1,000 ml IV ASDIRECTED 08/18/20 19:47 Diabetes Education [RC] DAILY Pulse Oximetry [RC] PRN 08/18/20 19:54 Acetaminophen/HYDROcodone [[place] 325-5 MG] 1 - 2 tab PO Q6H PRN Albuterol/Ipratropium [DuoNeb 3.0-0.5 MG/3 ML] 3 ml NEB Q6H PRN Dextromethorphan/guaiFENesin [Robitussin DM] 10 ml PO Q4H PRN 08/18/20 20:00 Enoxaparin [Lovenox] 40 mg SUBCUT DAILY cefTRIAXone [Rocephin] 1 gm Sodium Chloride 0.9% [Normal Saline] 100 ml IV Q24H 08/18/20 20:24 CULTURE BLOOD [BC] Stat 08/18/20 21:00 Mometasone/Formoterol [Dulera 200-5 MCG] 0 puff IH BID 08/19/20 05:22 Acetaminophen [TylenoL] 650 mg PO Q4H PRN 08/19/20 07:00 metFORMIN [Glucophage] 1,000 mg PO BIDMEALS 08/19/20 09:00 Aspirin [Halfprin] 81 mg PO DAILY Sertraline [Zoloft] 100 mg PO DAILY buPROPion [Wellbutrin XL] 150 mg PO DAILY predniSONE 50 mg PO DAILY 08/19/20 10:57 Nicotine Polacrilex [Nicorelief] 2 mg CHEW Q2H PRN 08/19/20 11:00 Magnesium Sulfate/D5W [Magnesium Sulfate in D5W 1 GM/100 ML] 1 gm Premix Bag 1 bag IV Q1H Nicotine [Habitrol] 7 mg TRDERM DAILY 08/19/20 18:00 Insulin Glarg,Human.Rec.Analog [LantUS] 64 unit SUBCUT 1800 08/19/20 21:00 Simvastatin [Zocor] 5 mg PO BEDTIME 08/20/20 09:00 Remove Patch 1 ea TRDERM DAILY allopurinoL [Zyloprim] 100 mg PO DAILY - Plan Plan:: plan : o2 steriods nebs education nicotine patch reevaluate diabetes issues. boh 08/19/20 afebrile vss, stable night but did not sleep well . lungs clear and diminished with minimal wheezes.o2 sats stable on 2 liters. tolerateing up to b.r. cor rrr, no s3/4, dizziness resolved. i.v. at 100 cc hour. abd benign. neuro aox4/no findings. b.s 221 last night and switched to sliding scale humolog. assess /plan 1) copd improved although still tight. decrease i.v /cont nebs rtc/ stop i.v antibiotics and cont oral starting in am cont prednisone 40 mg today and start taper in am if cont. to improve. 2)control diabetes with sliding scale and increase walking as tolerated(she is very sedentary ) 3) education 4)nicotine cessation patch and gum addressed anxiety a nd insomnia and is somewhat chronic. 5) other risk factor control addressed . boh
[2020-08-19] MEDS: Albuterol/Ipratropium 3.0-0.5 MG/3 ML Neb Soln NEB PRN (12:47)
[2020-08-19] MEDS: Loperamide 2 MG Cap PO PRN (16:01)
[2020-08-19] MEDS: INSULIN DEGLUDEC SUBCUT SCH (17:19)
[2020-08-19] MEDS: [UNRECOGNIZED DRUG - OTHER] SUBCUT SCH (17:19)
[2020-08-19] MEDS: cefTRIAXone 1 GM in Sodium Chloride 0.9% 100 ML IV SCH (20:09)
[2020-08-19] MEDS: Simvastatin 10 MG Tab PO SCH (20:10)
[2020-08-20] MEDS: Sodium Chloride 0.9% 1,000 ML IV SCH ×2 (00:19→08:32)
[2020-08-20] MEDS: Albuterol/Ipratropium 3.0-0.5 MG/3 ML Neb Soln NEB PRN ×2 (00:33→13:30)
[2020-08-20] MEDS: Acetaminophen/HYDROcodone 325-5 MG Tab PO PRN (04:02)
[2020-08-20] MEDS: metFORMIN 500 MG Tab PO SCH ×2 (06:02→17:14)
[2020-08-20] MEDS: Allopurinol 100 MG Tab PO SCH (08:33)
[2020-08-20] MEDS: Sertraline 50 MG Tab PO SCH (08:33)
[2020-08-20] MEDS: buPROPion 150 MG Tab.ER PO SCH (08:33)
[2020-08-20] MEDS: Aspirin 81 MG Tab.EC PO SCH (08:33)
[2020-08-20] MEDS: predniSONE 20 MG Tab PO SCH (08:33)
[2020-08-20] MEDS: Enoxaparin 40 MG/0.4 ML Syringe SUBCUT SCH (08:34)
[2020-08-20] MEDS: Remove AND REPLACE NICOTINE Patch TRDERM SCH (08:34)
[2020-08-20] MEDS: Nicotine 7 MG/24 Hr Patch TRDERM SCH (08:34)
[2020-08-20] MEDS: Formoterol/Mometasone 200-5 MCG 8.8 GM Inhaler IH SCH ×2 (09:33→20:06)
--- NOTE | 2020-08-20 15:17 | PCM.PN ---
- General Info Date of Service: 08/20/20 Admission Dx/Problem (Free Text): copd/bronchitis Subjective Update: 08/19/20 afebrile vss, stable night but did not sleep well . lungs clear and diminished with minimal wheezes.o2 sats stable on 2 liters. tolerateing up to b.r. cor rrr, no s3/4, dizziness resolved. i.v. at 100 cc hour. abd benign. neuro aox4/no findings. b.s 221 last night and switched to sliding scale humolog. assess /plan 1) copd improved although still tight. decrease i.v /cont nebs rtc/ stop i.v antibiotics and cont oral starting in am cont prednisone 40 mg today and start taper in am if cont. to improve. 2)control diabetes with sliding scale and increase walking as tolerated(she is very sedentary ) 3) education 4)nicotine cessation patch and gum addressed anxiety a nd insomnia and is somewhat chronic. 5) other risk factor control addressed . boh Functional Status: Reports: Pain Controlled, Tolerating Diet - Review of Systems General: Reports: No Symptoms HEENT: Reports: No Symptoms Pulmonary: Reports: No Symptoms, Shortness of Breath, Cough, Wheezing Cardiovascular: Reports: No Symptoms Gastrointestinal: Reports: No Symptoms Genitourinary: Reports: No Symptoms Musculoskeletal: Reports: No Symptoms Skin: Reports: No Symptoms Neurological: Reports: No Symptoms Psychiatric: Reports: No Symptoms - Patient Data Vitals - Most Recent: Last Vital Signs Temp 36.9 C 08/20/20 11:07 Pulse 75 08/20/20 11:07 Resp 16 08/20/20 11:07 BP 155/64 H 08/20/20 11:07 Pulse Ox 96 08/20/20 13:31 Weight - Most Recent: 105.732 kg I&O - Last 24 Hours: Intake & Output 08/20/20 08/20/20 08/20/20 06:59 14:59 22:59 Intake Total 2144 160 Output Total 1100 Balance 1044 160 Lab Results Last 24 Hours: Laboratory Results - last 24 hr 08/19/20 08/19/20 08/20/20 Range/Units 16:05 21:29 06:07 POC Glucose 170 H 230 H 163 H (70-99) mg/dL 08/20/20 Range/Units 11:05 POC Glucose 124 H (70-99) mg/dL Antoni Results Last 24 Hours: Microbiology 08/18/20 20:24 Aerobic Blood Culture - Preliminary Blood NO GROWTH AFTER 1 DAY Anaerobic Blood Culture - Preliminary NO GROWTH AFTER 1 DAY Med Orders - Current: Current Medications Acetaminophen (Acetaminophen 325 Mg Tab) 650 mg PO Q4H PRN PRN Reason: Pain Last Admin: 08/19/20 16:00 Dose: 650 mg Documented by: Hydrocodone Bitart/Acetaminophen (Acetaminophen/Hydrocodone 325-5 Mg Tab) 1 - 2 tab PO Q6H PRN PRN Reason: Pain Last Admin: 08/20/20 04:02 Dose: 1 tab Documented by: Albuterol/Ipratropium (Albuterol/Ipratropium 3.0-0.5 Mg/3 Ml Neb Soln) 3 ml NEB Q6H PRN PRN Reason: Wheezing Last Admin: 08/20/20 13:30 Dose: 3 ml Documented by: Allopurinol (Allopurinol 100 Mg Tab) 100 mg PO DAILY [facility] Last Admin: 08/20/20 08:33 Dose: 100 mg Documented by: Aspirin (Aspirin 81 Mg Tab.Ec) 81 mg PO DAILY [facility] Last Admin: 08/20/20 08:33 Dose: 81 mg Documented by: Bupropion HCl (Bupropion 150 Mg Tab.Er) 150 mg PO DAILY [facility] Last Admin: 08/20/20 08:33 Dose: 150 mg Documented by: Enoxaparin Sodium (Enoxaparin 40 Mg/0.4 Ml Syringe) 40 mg SUBCUT DAILY [facility] Last Admin: 08/20/20 08:34 Dose: 40 mg Documented by: Guaifenesin/Phenylephrine HCl (Guaifenesin/Dextromethorphan 100-10 Mg/5 Ml Soln 5 Ml Cup) 10 ml PO Q4H PRN PRN Reason: Cough Sodium Chloride (Normal Saline) 1,000 mls @ 125 mls/hr IV ASDIRECTED [facility] Last Admin: 08/20/20 08:32 Dose: 125 mls/hr Documented by: Ceftriaxone Sodium 1 gm/ (Sodium Chloride) 100 mls @ 200 mls/hr IV Q24H [facility] Last Admin: 08/19/20 20:09 Dose: 200 mls/hr Documented by: Loperamide HCl (Loperamide 2 Mg Cap) 2 mg PO Q6H PRN PRN Reason: Diarrhea Last Admin: 08/19/20 16:01 Dose: 2 mg Documented by: Magnesium Hydroxide (Magnesium Hydroxide 400 Mg/5 Ml Susp 30 Ml Cup) 30 ml PO Q12H PRN PRN Reason: Constipation Metformin HCl (Metformin 500 Mg Tab) 1,000 mg PO BIDMEALS [facility] Last Admin: 08/20/20 06:02 Dose: 1,000 mg Documented by: Miscellaneous Information (Remove And Replace Nicotine Patch) 1 ea TRDERM DAILY [facility] Last Admin: 08/20/20 08:34 Dose: 1 ea Documented by: Mometasone Furoate/Formoterol Fumar (Formoterol/Mometasone 200-5 Mcg 8.8 Gm Inhaler) 0 puff IH BID [facility] Last Admin: 08/20/20 09:33 Dose: 2 puff Documented by: Nicotine (Nicotine 7 Mg/24 Hr Patch) 7 mg TRDERM DAILY [facility] Last Admin: 08/20/20 08:34 Dose: 7 mg Documented by: Nicotine Polacrilex (Nicotine Polacrilex 2 Mg Gum) 2 mg CHEW Q2H PRN PRN Reason: smoking cessation Tresiba Flextouch Pens 100 U/Ml Patient's Own Med 0 each SUBCUT QPM [facility] Last Admin: 08/19/20 17:19 Dose: 64 each Documented by: Prednisone (Prednisone 20 Mg Tab) 50 mg PO DAILY [facility] Last Admin: 08/20/20 08:33 Dose: 50 mg Documented by: Prednisone (Prednisone 10 Mg Tab) 40 mg PO .Daily Taper [facility] Sertraline HCl (Sertraline 50 Mg Tab) 100 mg PO DAILY [facility] Last Admin: 08/20/20 08:33 Dose: 100 mg Documented by: Simvastatin (Simvastatin 10 Mg Tab) 5 mg PO BEDTIME [facility] Last Admin: 08/19/20 20:10 Dose: 5 mg Documented by: Sodium Chloride (Sodium Chloride 0.9% 10 Ml Syringe) 10 ml FLUSH ASDIRECTED PRN PRN Reason: Keep Vein Open Discontinued Medications Albuterol/Ipratropium (Albuterol/Ipratropium 3.0-0.5 Mg/3 Ml Neb Soln) 3 ml NEB ONETIME ONE Stop: 08/18/20 16:40 Last Admin: 08/18/20 17:01 Dose: 3 ml Documented by: Albuterol/Ipratropium (Albuterol/Ipratropium 3.0-0.5 Mg/3 Ml Neb Soln) 3 ml NEB ONETIME ONE Stop: 08/18/20 18:06 Last Admin: 08/18/20 18:28 Dose: 3 ml Documented by: Albuterol/Ipratropium (Albuterol/Ipratropium 3.0-0.5 Mg/3 Ml Neb Soln) 3 ml NEB Q4H PRN PRN Reason: Shortness Of Breath/wheezing Allopurinol (Allopurinol 300 Mg Tab) 300 mg PO DAILY [facility] Last Admin: 08/19/20 11:44 Dose: Not Given Documented by: Magnesium Sulfate/Dextrose 1 (gm/ Premix) 100 mls @ 100 mls/hr IV Q1H [facility] Stop: 08/19/20 12:59 Last Admin: 08/19/20 13:26 Dose: 100 mls/hr Documented by: Insulin Glargine (Insulin Glarg,Human.Rec.Analog 100 Unit/Ml) 73 unit SUBCUT DAILY [facility] Insulin Glargine (Insulin Glarg,Human.Rec.Analog 100 Unit/Ml) 64 unit SUBCUT 1800 [place] Methylprednisolone Sodium Succinate (Methylprednisolone Sodium Succinate 125 Mg/2 Ml Sdv) 125 mg IVPUSH ONETIME ONE Stop: 08/18/20 16:40 Last Admin: 08/18/20 16:48 Dose: 125 mg Documented by: Non-Formulary Medication (Glipizide) 10 mg PO BIDMEALS [facility] Sodium Chloride (Sodium Chloride 0.9% 10 Ml Syringe) 10 ml FLUSH ASDIRECTED PRN PRN Reason: Keep Vein Open Last Admin: 08/18/20 16:42 Dose: 10 ml Documented by: - Exam Quality Assessment: Supplemental Oxygen General: Alert, Oriented HEENT: Pupils Equal, Pupils Reactive, EOMI, Mucous Membr. Moist/[place] Neck: Supple Lungs: Clear to Auscultation, Normal Respiratory Effort Cardiovascular: Regular Rate, Regular Rhythm GI/Abdominal Exam: Normal Bowel Sounds, Soft, Non-Tender, No Organomegaly, No Distention, No Abnormal Bruit, No Mass, Pelvis Stable (Female) Exam: Normal External Exam, Normal Speculum Exam, Normal Bimanual Exam, Deferred Back Exam: Normal Inspection, Full Range of Motion Extremities: Normal Inspection, Normal Range of Motion, Non-Tender, No Pedal Edema, Normal Capillary Refill Peripheral Pulses: 1+: Carotid (L), Carotid (R) Skin: Warm, Dry, Intact Wound/Incisions: Healing Well Neurological: No New Focal Deficit Psy/Mental Status: Alert, Normal Affect, Normal Mood - Patient Data Lab Results Last 24 hrs: Laboratory Results - last 24 hr 08/19/20 08/19/20 08/20/20 Range/Units 16:05 21:29 06:07 POC Glucose 170 H 230 H 163 H (70-99) mg/dL 08/20/20 Range/Units 11:05 POC Glucose 124 H (70-99) mg/dL Result Diagrams: 08/19/20 04:06 08/19/20 04:06 Antoni Results Last 24 hrs: Microbiology 08/18/20 20:24 Aerobic Blood Culture - Preliminary Blood NO GROWTH AFTER 1 DAY Anaerobic Blood Culture - Preliminary NO GROWTH AFTER 1 DAY Sepsis Event Note - Evaluation Sepsis Screening Result: No Definite Risk - Focused Exam Vital Signs: Vital Signs Temp Pulse Resp BP Pulse Ox Pulse Ox 08/20/20 13:31 96 08/20/20 11:07 36.9 C 75 16 155/64 H 95 08/20/20 09:33 95 08/20/20 07:55 36.8 C 71 16 140/92 H 98 08/20/20 03:17 36.5 C 71 14 164/74 H 99 - Problem List & Annotations (1) Chronic renal insufficiency, stage III (moderate) SNOMED Code(s): 209812138 Code(s): N18.30 - CHRONIC KIDNEY DISEASE, STAGE 3 UNSPECIFIED Status: Acute Priority: Medium Current Visit: Yes Onset Date: ~08/18/20 Annotation/Comment:: doing well overall and diuresing from i.v. and i.v. hep locked (2) Anemia SNOMED Code(s): 361899157 Code(s): D64.9 - ANEMIA, UNSPECIFIED Status: Acute Priority: Medium Current Visit: Yes Onset Date: ~08/18/20 Qualifiers: Anemia type: unspecified type Qualified Code(s): D64.9 - Anemia, unspecified (3) Acute exacerbation of chronic obstructive pulmonary disease (COPD) SNOMED Code(s): 436051449 Code(s): J44.1 - CHRONIC OBSTRUCTIVE PULMONARY DISEASE W (ACUTE) EXACERBATION Status: Acute Priority: High Current Visit: Yes Onset Date: ~08/18/20 Annotation/Comment:: started nebs and steriods and rocephin and monitor response. 08/20/20 doing better ambulating in room and minimal desats but gets wheezy. lungs clear and diminished and repeat chest xray ordered and day 3 rocephin. cont in am and switch to oral antibiotic . dc planning discussed and on home o2 already and needs to check b.s and start walking program and doing walking test today .if qualifies pulm walking program/cardiac rehab would be helpful . on patch and doing fair. (4) Hypoxia SNOMED Code(s): 973411099 Code(s): R09.02 - HYPOXEMIA Status: Acute Priority: High Current Visit: Yes Onset Date: ~08/18/20 Annotation/Comment:: very sedentary and needs further education. ambulating in room with desats now to 90 with 25-50 feet. (5) Chest wall pain SNOMED Code(s): 337131094 Code(s): R07.89 - OTHER CHEST PAIN Status: Acute Priority: Low Current Visit: No Onset Date: ~08/18/20 Annotation/Comment:: chest wall pain and back pain better and suspect just form coughing and flare up reassurred . discussed waling plan and concerns (6) Hyperglycemia due to type 2 diabetes mellitus SNOMED Code(s): 214485675387548, 650341403570295 Code(s): E11.65 - TYPE 2 DIABETES MELLITUS WITH HYPERGLYCEMIA Status: Acute Priority: High Current Visit: No Onset Date: ~08/18/20 Qualifiers: Diabetes mellitus mcc insulin use: with mcc use Qualified Code(s): E11.65 - Type 2 diabetes mellitus with hyperglycemia; Z79.4 - medical terminologist (current) use of insulin Annotation/Comment:: diabetic ed and dietary to see her. (7) Nephrolithiasis SNOMED Code(s): 21085593 Code(s): N20.0 - CALCULUS OF KIDNEY Status: Acute Priority: Low Current Visit: No Onset Date: ~08/18/20 Annotation/Comment:: no current symptoms but known oxalate stones and discussed low ox diet. (8) RADHA (obstructive sleep apnea) SNOMED Code(s): 06870945 Code(s): G47.33 - OBSTRUCTIVE SLEEP APNEA (ADULT) (PEDIATRIC) Status: Acute Priority: High Current Visit: No Onset Date: ~08/18/20 Annotation/Comment:: - w/o CPAP. dicussed screening for radha based on snoring poor sleep and fatigue with exertion . agreeable and will arrange. home going issues addressed. (9) (HFpEF) heart failure with preserved ejection fraction SNOMED Code(s): 027917054 Code(s): I50.30 - UNSPECIFIED DIASTOLIC (CONGESTIVE) HEART FAILURE Status: Chronic Priority: Medium Current Visit: No Onset Date: ~08/18/20 Qualifiers: Heart failure chronicity: chronic Qualified Code(s): I50.32 - Chronic diastolic (congestive) heart failure Annotation/Comment:: repeat echo per her primary care / no symptoms of angina (10) Morbid obesity with BMI of 40.0-44.9, adult SNOMED Code(s): 804315998, 73835136594754 Code(s): E66.01 - MORBID (SEVERE) OBESITY DUE TO EXCESS CALORIES; Z68.41 - BODY MASS INDEX [BMI]40.0-44.9, ADULT Status: Chronic Priority: Medium Current Visit: No Onset Date: ~08/18/20 Annotation/Comment:: does not have any diet and discussed low carb diet and checking b.s at home . she is very reluctant but does agree and will obtain monutor and strips. homer going issues discussed . (11) Tobacco use disorder SNOMED Code(s): 634608627 Code(s): F17.200 - NICOTINE DEPENDENCE, UNSPECIFIED, UNCOMPLICATED Status: Chronic Priority: Medium Current Visit: No Onset Date: ~08/18/20 - Problem List Review Problem List Initiated/Reviewed/Updated: Yes - My Orders Last 24 Hours: My Active Orders 08/19/20 16:00 Loperamide [Imodium] 2 mg PO Q6H PRN 08/19/20 18:00 Patient's Own Medication [Ptom] 0 each SUBCUT QPM 08/19/20 21:00 Simvastatin [Zocor] 5 mg PO BEDTIME 08/20/20 09:00 Remove Patch 1 ea TRDERM DAILY allopurinoL [Zyloprim] 100 mg PO DAILY 08/20/20 15:05 Chest 2V [CR] Routine 08/20/20 15:15 predniSONE 40 mg PO .Daily Taper - Assessment Assessment:: 08/20/20 plan: cont o2 // cont nebs //screen for radha as o.p. recheck chest xray and follow sats as activity increased. o2 at h.s and with activity sec to mod. severe copd. monitor b.s at home . address home going /assistance concerns with ss input. anemia related to renal insuff and hemmoccult recommended x 1 . awaiting labs. dc planning underway if she cont to stabilize. antibiotics can be switched to oral if no pneumonia on xray. boh - Plan Plan:: plan : o2 steriods nebs education nicotine patch reevaluate diabetes issues. [facility] 08/19/20 afebrile vss, stable night but did not sleep well . lungs clear and diminished with minimal wheezes.o2 sats stable on 2 liters. tolerateing up to b.r. cor rrr, no s3/4, dizziness resolved. i.v. at 100 cc hour. abd benign. neuro aox4/no findings. b.s 221 last night and switched to sliding scale humolog. assess /plan 1) copd improved although still tight. decrease i.v /cont nebs rtc/ stop i.v antibiotics and cont oral starting in am cont prednisone 40 mg today and start taper in am if cont. to improve. 2)control diabetes with sliding scale and increase walking as tolerated(she is very sedentary ) 3) education 4)nicotine cessation patch and gum addressed anxiety a nd insomnia and is somewhat chronic. 5) other risk factor control addressed . boh
--- NOTE | 2020-08-20 15:59 | CR ---
Chest: 2 views of the chest were obtained. Comparison: Prior chest x-ray of 08/18/20. Slight parenchymal density is noted within the left lung base. This is most likely chronic. Lungs otherwise are clear with no acute parenchymal change. Heart size and mediastinum are normal. Minimal thickening of the major fissure is seen. Bony structures are osteopenic but show nothing acute. Impression: 1. Findings as noted above. 2. Nothing acute is appreciated. Diagnostic code #2
[2020-08-20] MEDS: INSULIN DEGLUDEC SUBCUT SCH (17:15)
[2020-08-20] MEDS: [UNRECOGNIZED DRUG - OTHER] SUBCUT SCH (17:15)
[2020-08-20] MEDS ORDERED: Benzocaine/Cetylpyridinium/Menthol Lozenge MUCMEM PRN (17:35)
[2020-08-20] MEDS ORDERED: traZODone 50 MG Tab PO ONE (20:04)
[2020-08-20] MEDS: cefTRIAXone 1 GM in Sodium Chloride 0.9% 100 ML IV SCH (21:56)
[2020-08-20] MEDS: Simvastatin 10 MG Tab PO SCH (21:57)
[2020-08-20] MEDS: Acetaminophen 325 MG Tab PO PRN (22:22)
[2020-08-20] MEDS: guaiFENesin/Dextromethorphan 100-10 MG/5 ML Soln 5 ML Cup PO PRN (22:22)
[2020-08-21] MEDS: metFORMIN 500 MG Tab PO SCH ×2 (06:58→18:14)
[2020-08-21] MEDS: Formoterol/Mometasone 200-5 MCG 8.8 GM Inhaler IH SCH ×2 (08:23→20:05)
[2020-08-21] MEDS ORDERED: predniSONE 20 MG Tab PO SCH (09:00)
[2020-08-21] MEDS: Aspirin 81 MG Tab.EC PO SCH (09:19)
[2020-08-21] MEDS: Sertraline 50 MG Tab PO SCH (09:19)
[2020-08-21] MEDS: buPROPion 150 MG Tab.ER PO SCH (09:20)
[2020-08-21] MEDS: Enoxaparin 40 MG/0.4 ML Syringe SUBCUT SCH (09:20)
[2020-08-21] MEDS: Allopurinol 100 MG Tab PO SCH (09:20)
[2020-08-21] MEDS: Nicotine 7 MG/24 Hr Patch TRDERM SCH (09:21)
[2020-08-21] MEDS: Remove AND REPLACE NICOTINE Patch TRDERM SCH (09:21)
[2020-08-21] MEDS: Acetaminophen 325 MG Tab PO PRN (14:28)
[2020-08-21] MEDS: Loperamide 2 MG Cap PO PRN (14:29)
[2020-08-21] MEDS ORDERED: hydrALAZINE 20 MG/ML SDV IVPUSH PRN (17:24)
[2020-08-21] MEDS ORDERED: amLODIPine 5 MG Tab PO SCH (17:30)
--- NOTE | 2020-08-21 17:33 | PCM.PN ---
- General Info Date of Service: 08/21/20 Admission Dx/Problem (Free Text): copd/bronchitis Subjective Update: Patient does not have any new complaints. Denies nausea, vomiting, fever, or chills. Blood pressure is not well controlled She is on 2 L. She has been on 2 L at home. WBC 12.70 Creatinine 1.0 Glucose 81. Will check hemoglobin A1c - Review of Systems Systems Review Comment:: General: Reports: No Symptoms HEENT: Reports: No Symptoms Pulmonary: Reports: No Symptoms, Shortness of Breath, Cough, Wheezing Cardiovascular: Reports: No Symptoms Gastrointestinal: Reports: No Symptoms Genitourinary: Reports: No Symptoms Musculoskeletal: Reports: No Symptoms Skin: Reports: No Symptoms Neurological: Reports: No Symptoms Psychiatric: Reports: No Symptoms - Patient Data Vitals - Most Recent: Last Vital Signs Temp 36.7 C 08/21/20 16:21 Pulse 68 08/21/20 16:21 Resp 20 08/21/20 16:21 BP 125/60 08/21/20 16:21 Pulse Ox 96 08/21/20 16:21 Weight - Most Recent: 106.776 kg I&O - Last 24 Hours: Intake & Output 08/21/20 08/21/20 08/21/20 06:59 14:59 22:59 Intake Total 600 700 800 Output Total 1100 Balance -500 700 800 Lab Results Last 24 Hours: Laboratory Results - last 24 hr 08/20/20 08/21/20 08/21/20 Range/Units 21:53 06:47 10:16 WBC 8.96 (3.98-10.04) K/mm3 RBC 3.72 L (3.98-5.22) M/mm3 Hgb 10.7 L (11.2-15.7) gm/dl Hct 36.1 (34.1-44.9) % MCV 97.0 H (79.4-94.8) fl MCH 28.8 (25.6-32.2) pg MCHC 29.6 L (32.2-35.5) g/dl RDW Std Deviation 47.1 H (36.4-46.3) fL Plt Count 209 (182-369) K/mm3 MPV 9.8 (9.4-12.3) fl Neut % (Auto) 71.3 H (34.0-71.1) % Lymph % (Auto) 17.2 L (19.3-51.7) % Mcleod % (Auto) 9.6 (4.7-12.5) % Eos % (Auto) 1.0 (0.7-5.8) Baso % (Auto) 0.2 (0.1-1.2) % Neut # (Auto) 6.39 H (1.56-6.13) K/mm3 Lymph # (Auto) 1.54 (1.18-3.74) K/mm3 Mcleod # (Auto) 0.86 H (0.24-0.36) K/mm3 Eos # (Auto) 0.09 (0.04-0.36) K/mm3 Baso # (Auto) 0.02 (0.01-0.08) K/mm3 Sodium (136-145) mEq/L Potassium (3.5-5.1) mEq/L Chloride (98-107) mEq/L Carbon Dioxide (21-32) mEq/L Anion Gap (5-15) BUN (7-18) mg/dL Creatinine (0.55-1.02) mg/dL Est Cr Clr Drug Dosing mL/min Estimated GFR (MDRD) (>60) mL/min BUN/Creatinine Ratio (14-18) Glucose (80-115) mg/dL POC Glucose 164 H 81 (70-99) mg/dL Calcium (8.5-10.1) mg/dL Magnesium (1.8-2.4) mg/dl Total Bilirubin (0.2-1.0) mg/dL AST (15-37) U/L ALT (14-59) U/L Alkaline Phosphatase (46-116) U/L Total Protein (6.4-8.2) g/dl Albumin (3.4-5.0) g/dl Globulin gm/dL Albumin/Globulin Ratio (1-2) 08/21/20 08/21/20 08/21/20 Range/Units 10:16 11:08 16:55 WBC (3.98-10.04) K/mm3 RBC (3.98-5.22) M/mm3 Hgb (11.2-15.7) gm/dl Hct (34.1-44.9) % MCV (79.4-94.8) fl MCH (25.6-32.2) pg MCHC (32.2-35.5) g/dl RDW Std Deviation (36.4-46.3) fL Plt Count (182-369) K/mm3 MPV (9.4-12.3) fl Neut % (Auto) (34.0-71.1) % Lymph % (Auto) (19.3-51.7) % Mcleod % (Auto) (4.7-12.5) % Eos % (Auto) (0.7-5.8) Baso % (Auto) (0.1-1.2) % Neut # (Auto) (1.56-6.13) K/mm3 Lymph # (Auto) (1.18-3.74) K/mm3 Mcleod # (Auto) (0.24-0.36) K/mm3 Eos # (Auto) (0.04-0.36) K/mm3 Baso # (Auto) (0.01-0.08) K/mm3 Sodium 144 (136-145) mEq/L Potassium 4.4 (3.5-5.1) mEq/L Chloride 108 H (98-107) mEq/L Carbon Dioxide 29 (21-32) mEq/L Anion Gap 11.4 (5-15) BUN 23 H (7-18) mg/dL Creatinine 1.0 (0.55-1.02) mg/dL Est Cr Clr Drug Dosing 43.30 mL/min Estimated GFR (MDRD) 55 (>60) mL/min BUN/Creatinine Ratio 23.0 H (14-18) Glucose 179 H (80-115) mg/dL POC Glucose 139 H 164 H (70-99) mg/dL Calcium 8.5 (8.5-10.1) mg/dL Magnesium 1.8 (1.8-2.4) mg/dl Total Bilirubin 0.1 L (0.2-1.0) mg/dL AST 19 (15-37) U/L ALT 26 (14-59) U/L Alkaline Phosphatase 51 (46-116) U/L Total Protein 6.6 (6.4-8.2) g/dl Albumin 3.0 L (3.4-5.0) g/dl Globulin 3.6 gm/dL Albumin/Globulin Ratio 0.8 L (1-2) Antoni Results Last 24 Hours: Microbiology 08/18/20 20:24 Aerobic Blood Culture - Preliminary Blood NO GROWTH AFTER 2 DAYS Anaerobic Blood Culture - Preliminary NO GROWTH AFTER 2 DAYS Med Orders - Current: Current Medications Acetaminophen (Acetaminophen 325 Mg Tab) 650 mg PO Q4H PRN PRN Reason: Pain Last Admin: 08/21/20 14:28 Dose: 650 mg Documented by: Hydrocodone Bitart/Acetaminophen (Acetaminophen/Hydrocodone 325-5 Mg Tab) 1 - 2 tab PO Q6H PRN PRN Reason: Pain Last Admin: 08/20/20 04:02 Dose: 1 tab Documented by: Albuterol/Ipratropium (Albuterol/Ipratropium 3.0-0.5 Mg/3 Ml Neb Soln) 3 ml NEB Q6H PRN PRN Reason: Wheezing Last Admin: 08/20/20 13:30 Dose: 3 ml Documented by: Allopurinol (Allopurinol 100 Mg Tab) 100 mg PO DAILY [facility] Last Admin: 08/21/20 09:20 Dose: 100 mg Documented by: Aspirin (Aspirin 81 Mg Tab.Ec) 81 mg PO DAILY [facility] Last Admin: 08/21/20 09:19 Dose: 81 mg Documented by: Benzocaine/Menthol (Benzocaine/Cetylpyridinium/Menthol Lozenge) 1 lozenge MUCMEM Q1H PRN PRN Reason: Sore Throat Last Admin: 08/20/20 18:00 Dose: 1 lozenge Documented by: Bupropion HCl (Bupropion 150 Mg Tab.Er) 150 mg PO DAILY [facility] Last Admin: 08/21/20 09:20 Dose: 150 mg Documented by: Enoxaparin Sodium (Enoxaparin 40 Mg/0.4 Ml Syringe) 40 mg SUBCUT DAILY [facility] Last Admin: 08/21/20 09:20 Dose: 40 mg Documented by: Guaifenesin/Phenylephrine HCl (Guaifenesin/Dextromethorphan 100-10 Mg/5 Ml Soln 5 Ml Cup) 10 ml PO Q4H PRN PRN Reason: Cough Last Admin: 08/20/20 22:22 Dose: 10 ml Documented by: Sodium Chloride (Normal Saline) 1,000 mls @ 125 mls/hr IV ASDIRECTED [facility] Last Admin: 08/20/20 08:32 Dose: 125 mls/hr Documented by: Ceftriaxone Sodium 1 gm/ (Sodium Chloride) 100 mls @ 200 mls/hr IV Q24H [facility] Last Admin: 08/20/20 21:56 Dose: 200 mls/hr Documented by: Loperamide HCl (Loperamide 2 Mg Cap) 2 mg PO Q6H PRN PRN Reason: Diarrhea Last Admin: 08/21/20 14:29 Dose: 2 mg Documented by: Magnesium Hydroxide (Magnesium Hydroxide 400 Mg/5 Ml Susp 30 Ml Cup) 30 ml PO Q12H PRN PRN Reason: Constipation Metformin HCl (Metformin 500 Mg Tab) 1,000 mg PO BIDMEALS [facility] Last Admin: 08/21/20 06:58 Dose: 1,000 mg Documented by: Miscellaneous Information (Remove And Replace Nicotine Patch) 1 ea TRDERM DAILY [facility] Last Admin: 08/21/20 09:21 Dose: 1 ea Documented by: Mometasone Furoate/Formoterol Fumar (Formoterol/Mometasone 200-5 Mcg 8.8 Gm Inhaler) 0 puff IH BID [facility] Last Admin: 08/21/20 08:23 Dose: 2 puff Documented by: Nicotine (Nicotine 7 Mg/24 Hr Patch) 7 mg TRDERM DAILY [facility] Last Admin: 08/21/20 09:21 Dose: 7 mg Documented by: Nicotine Polacrilex (Nicotine Polacrilex 2 Mg Gum) 2 mg CHEW Q2H PRN PRN Reason: smoking cessation Tresiba Flextouch Pens 100 U/Ml Patient's Own Med 0 each SUBCUT QPM [facility] Last Admin: 08/20/20 17:15 Dose: 64 each Documented by: Prednisone (Prednisone 10 Mg Tab) 35 mg PO DAILY [facility] Stop: 08/22/20 09:01 Prednisone (Prednisone 10 Mg Tab) 30 mg PO DAILY [facility] Stop: 08/23/20 09:01 Prednisone (Prednisone 10 Mg Tab) 25 mg PO DAILY [facility] Stop: 08/24/20 09:01 Prednisone (Prednisone 20 Mg Tab) 20 mg PO DAILY [facility] Stop: 08/25/20 09:01 Prednisone (Prednisone 5 Mg Tab) 15 mg PO DAILY [facility] Stop: 08/26/20 09:01 Prednisone (Prednisone 10 Mg Tab) 10 mg PO DAILY [facility] Stop: 08/27/20 09:01 Prednisone (Prednisone 5 Mg Tab) 5 mg PO DAILY [facility] Stop: 08/28/20 09:01 Sertraline HCl (Sertraline 50 Mg Tab) 100 mg PO DAILY [facility] Last Admin: 08/21/20 09:19 Dose: 100 mg Documented by: Simvastatin (Simvastatin 10 Mg Tab) 5 mg PO BEDTIME [facility] Last Admin: 08/20/20 21:57 Dose: 5 mg Documented by: Sodium Chloride (Sodium Chloride 0.9% 10 Ml Syringe) 10 ml FLUSH ASDIRECTED PRN PRN Reason: Keep Vein Open Discontinued Medications Albuterol/Ipratropium (Albuterol/Ipratropium 3.0-0.5 Mg/3 Ml Neb Soln) 3 ml NEB ONETIME ONE Stop: 08/18/20 16:40 Last Admin: 08/18/20 17:01 Dose: 3 ml Documented by: Albuterol/Ipratropium (Albuterol/Ipratropium 3.0-0.5 Mg/3 Ml Neb Soln) 3 ml NEB ONETIME ONE Stop: 08/18/20 18:06 Last Admin: 08/18/20 18:28 Dose: 3 ml Documented by: Albuterol/Ipratropium (Albuterol/Ipratropium 3.0-0.5 Mg/3 Ml Neb Soln) 3 ml NEB Q4H PRN PRN Reason: Shortness Of Breath/wheezing Allopurinol (Allopurinol 300 Mg Tab) 300 mg PO DAILY [facility] Last Admin: 08/19/20 11:44 Dose: Not Given Documented by: Magnesium Sulfate/Dextrose 1 (gm/ Premix) 100 mls @ 100 mls/hr IV Q1H [facility] Stop: 08/19/20 12:59 Last Admin: 08/19/20 13:26 Dose: 100 mls/hr Documented by: Insulin Glargine (Insulin Glarg,Human.Rec.Analog 100 Unit/Ml) 73 unit SUBCUT DAILY [facility] Insulin Glargine (Insulin Glarg,Human.Rec.Analog 100 Unit/Ml) 64 unit SUBCUT 1800 [facility] Methylprednisolone Sodium Succinate (Methylprednisolone Sodium Succinate 125 Mg/2 Ml Sdv) 125 mg IVPUSH ONETIME ONE Stop: 08/18/20 16:40 Last Admin: 08/18/20 16:48 Dose: 125 mg Documented by: Non-Formulary Medication (Glipizide) 10 mg PO BIDMEALS [facility] Prednisone (Prednisone 20 Mg Tab) 50 mg PO DAILY [facility] Last Admin: 08/20/20 08:33 Dose: 50 mg Documented by: Prednisone (Prednisone 20 Mg Tab) 40 mg PO DAILY [facility] Stop: 08/21/20 09:01 Last Admin: 08/21/20 09:20 Dose: 40 mg Documented by: Sodium Chloride (Sodium Chloride 0.9% 10 Ml Syringe) 10 ml FLUSH ASDIRECTED PRN PRN Reason: Keep Vein Open Last Admin: 08/18/20 16:42 Dose: 10 ml Documented by: Trazodone HCl (Trazodone 50 Mg Tab) 50 mg PO ONETIME ONE Stop: 08/20/20 20:05 Last Admin: 08/20/20 21:56 Dose: 50 mg Documented by: - Exam Physical Findings Comments:: General: Alert, Oriented HEENT: Pupils Equal, Pupils Reactive, EOMI, Mucous Membr. Moist/[place] Neck: Supple Lungs: Diminished breathing sounds bilaterally, Normal Respiratory Effort Cardiovascular: Regular Rate, Regular Rhythm GI/Abdominal Exam: Normal Bowel Sounds, Soft, Non-Tender, No Organomegaly, No Distention, No Abnormal Bruit, No Mass, Pelvis Stable (Female) Exam: Deferred Back Exam: Normal Inspection, Full Range of Motion Extremities: Normal Inspection, Normal Range of Motion, Non-Tender, No Pedal Edema, Normal Capillary Refill Peripheral Pulses: 1+: Carotid (L), Carotid (R) Skin: Warm, Dry, Intact Wound/Incisions: Healing Well Neurological: No New Focal Deficit Psy/Mental Status: Alert, Normal Affect, Normal Mood - Patient Data Lab Results Last 24 hrs: Laboratory Results - last 24 hr 08/20/20 08/21/20 08/21/20 Range/Units 21:53 06:47 10:16 WBC 8.96 (3.98-10.04) K/mm3 RBC 3.72 L (3.98-5.22) M/mm3 Hgb 10.7 L (11.2-15.7) gm/dl Hct 36.1 (34.1-44.9) % MCV 97.0 H (79.4-94.8) fl MCH 28.8 (25.6-32.2) pg MCHC 29.6 L (32.2-35.5) g/dl RDW Std Deviation 47.1 H (36.4-46.3) fL Plt Count 209 (182-369) K/mm3 MPV 9.8 (9.4-12.3) fl Neut % (Auto) 71.3 H (34.0-71.1) % Lymph % (Auto) 17.2 L (19.3-51.7) % Mcleod % (Auto) 9.6 (4.7-12.5) % Eos % (Auto) 1.0 (0.7-5.8) Baso % (Auto) 0.2 (0.1-1.2) % Neut # (Auto) 6.39 H (1.56-6.13) K/mm3 Lymph # (Auto) 1.54 (1.18-3.74) K/mm3 Mcleod # (Auto) 0.86 H (0.24-0.36) K/mm3 Eos # (Auto) 0.09 (0.04-0.36) K/mm3 Baso # (Auto) 0.02 (0.01-0.08) K/mm3 Sodium (136-145) mEq/L Potassium (3.5-5.1) mEq/L Chloride (98-107) mEq/L Carbon Dioxide (21-32) mEq/L Anion Gap (5-15) BUN (7-18) mg/dL Creatinine (0.55-1.02) mg/dL Est Cr Clr Drug Dosing mL/min Estimated GFR (MDRD) (>60) mL/min BUN/Creatinine Ratio (14-18) Glucose (80-115) mg/dL POC Glucose 164 H 81 (70-99) mg/dL Calcium (8.5-10.1) mg/dL Magnesium (1.8-2.4) mg/dl Total Bilirubin (0.2-1.0) mg/dL AST (15-37) U/L ALT (14-59) U/L Alkaline Phosphatase (46-116) U/L Total Protein (6.4-8.2) g/dl Albumin (3.4-5.0) g/dl Globulin gm/dL Albumin/Globulin Ratio (1-2) 08/21/20 08/21/20 08/21/20 Range/Units 10:16 11:08 16:55 WBC (3.98-10.04) K/mm3 RBC (3.98-5.22) M/mm3 Hgb (11.2-15.7) gm/dl Hct (34.1-44.9) % MCV (79.4-94.8) fl MCH (25.6-32.2) pg MCHC (32.2-35.5) g/dl RDW Std Deviation (36.4-46.3) fL Plt Count (182-369) K/mm3 MPV (9.4-12.3) fl Neut % (Auto) (34.0-71.1) % Lymph % (Auto) (19.3-51.7) % Mcleod % (Auto) (4.7-12.5) % Eos % (Auto) (0.7-5.8) Baso % (Auto) (0.1-1.2) % Neut # (Auto) (1.56-6.13) K/mm3 Lymph # (Auto) (1.18-3.74) K/mm3 Mcleod # (Auto) (0.24-0.36) K/mm3 Eos # (Auto) (0.04-0.36) K/mm3 Baso # (Auto) (0.01-0.08) K/mm3 Sodium 144 (136-145) mEq/L Potassium 4.4 (3.5-5.1) mEq/L Chloride 108 H (98-107) mEq/L Carbon Dioxide 29 (21-32) mEq/L Anion Gap 11.4 (5-15) BUN 23 H (7-18) mg/dL Creatinine 1.0 (0.55-1.02) mg/dL Est Cr Clr Drug Dosing 43.30 mL/min Estimated GFR (MDRD) 55 (>60) mL/min BUN/Creatinine Ratio 23.0 H (14-18) Glucose 179 H (80-115) mg/dL POC Glucose 139 H 164 H (70-99) mg/dL Calcium 8.5 (8.5-10.1) mg/dL Magnesium 1.8 (1.8-2.4) mg/dl Total Bilirubin 0.1 L (0.2-1.0) mg/dL AST 19 (15-37) U/L ALT 26 (14-59) U/L Alkaline Phosphatase 51 (46-116) U/L Total Protein 6.6 (6.4-8.2) g/dl Albumin 3.0 L (3.4-5.0) g/dl Globulin 3.6 gm/dL Albumin/Globulin Ratio 0.8 L (1-2) Result Diagrams: 08/21/20 10:16 08/21/20 10:16 Antoni Results Last 24 hrs: Microbiology 08/18/20 20:24 Aerobic Blood Culture - Preliminary Blood NO GROWTH AFTER 2 DAYS Anaerobic Blood Culture - Preliminary NO GROWTH AFTER 2 DAYS Sepsis Event Note - Evaluation Sepsis Screening Result: No Definite Risk - Focused Exam Vital Signs: Vital Signs Temp Pulse Resp BP Pulse Ox Pulse Ox 08/21/20 16:21 36.7 C 68 20 125/60 96 08/21/20 11:09 36.5 C 69 16 160/72 H 97 08/21/20 08:23 98 08/21/20 07:30 36.6 C 72 20 127/68 99 - Problem List Review Problem List Initiated/Reviewed/Updated: Yes - Assessment Assessment:: 70 year old female with copd on home o2 with 4 week hx of worsening breathing and coughing and wheezing. Assessment: Acute on chronic hypoxic respiratory failure COPD exacerbation Type 2 diabetes with hyperglycemia Nephrolithiasis Obstructive sleep apnea Heart failure with the resolved ejection fraction Morbid obesity -BMI 41.7 Tobacco use disorder 1. Patient has been on home 2 L. Pulse ox. Oxygen therapy to keep saturation greater than 92% 2. Chest x-ray showed -no acute change. Continue prednisone 35 mg daily with tapering. Continue ceftriaxone. Inhalers 3. Diabetic diet. Continue Metformin 1000 mg twice daily. Insulin sliding scale 4. Follow with PCP and urology 5. Follow-up with the safe deposit clerk for sleep study 6. Presumed heart failure is stable -chest x-ray no pulmonary edema. proBNP 7. Counseling for smoking cessation 8. DVT prophylaxis: Lovenox - Plan Plan:: plan : o2 steriods nebs education nicotine patch reevaluate diabetes issues. boh 08/19/20 afebrile vss, stable night but did not sleep well . lungs clear and diminished with minimal wheezes.o2 sats stable on 2 liters. tolerateing up to b.r. cor rrr, no s3/4, dizziness resolved. i.v. at 100 cc hour. abd benign. neuro aox4/no findings. b.s 221 last night and switched to sliding scale humolog. assess /plan 1) copd improved although still tight. decrease i.v /cont nebs rtc/ stop i.v antibiotics and cont oral starting in am cont prednisone 40 mg today and start taper in am if cont. to improve. 2)control diabetes with sliding scale and increase walking as tolerated(she is very sedentary ) 3) education 4)nicotine cessation patch and gum addressed anxiety a nd insomnia and is somewhat chronic. 5) other risk factor control addressed . boh
[2020-08-21] MEDS ORDERED: Levalbuterol HCl 0.63 MG/3 ML Neb NEB PRN (17:42)
[2020-08-21] MEDS: [UNRECOGNIZED DRUG - OTHER] SUBCUT SCH (18:15)
[2020-08-21] MEDS: amLODIPine 2.5 MG Tab PO SCH (18:15)
[2020-08-21] MEDS: INSULIN DEGLUDEC SUBCUT SCH (18:15)
[2020-08-21] MEDS: Simvastatin 10 MG Tab PO SCH (20:49)
[2020-08-21] MEDS: cefTRIAXone 1 GM in Sodium Chloride 0.9% 100 ML IV SCH (20:50)
[2020-08-21] MEDS: guaiFENesin/Dextromethorphan 100-10 MG/5 ML Soln 5 ML Cup PO PRN (22:20)
[2020-08-22] MEDS ORDERED: Pantoprazole 40 MG Tab.CR PO SCH (06:00)
[2020-08-22] MEDS: metFORMIN 500 MG Tab PO SCH ×2 (06:44→17:49)
[2020-08-22 08:17] LABS: HEMOGLOBIN A1C 6.5 %
[2020-08-22] MEDS ORDERED: predniSONE 10 MG Tab PO SCH (09:00)
[2020-08-22] MEDS: Formoterol/Mometasone 200-5 MCG 8.8 GM Inhaler IH SCH (09:16)
[2020-08-22] MEDS: Enoxaparin 40 MG/0.4 ML Syringe SUBCUT SCH (09:55)
[2020-08-22] MEDS: Nicotine 7 MG/24 Hr Patch TRDERM SCH (09:55)
[2020-08-22] MEDS: Allopurinol 100 MG Tab PO SCH (09:56)
[2020-08-22] MEDS: Sertraline 50 MG Tab PO SCH (09:56)
[2020-08-22] MEDS: buPROPion 150 MG Tab.ER PO SCH (09:56)
[2020-08-22] MEDS: Aspirin 81 MG Tab.EC PO SCH (09:56)
[2020-08-22] MEDS: amLODIPine 2.5 MG Tab PO SCH (09:57)
[2020-08-22] MEDS: Acetaminophen/HYDROcodone 325-5 MG Tab PO PRN (10:04)
[2020-08-22] MEDS: Remove AND REPLACE NICOTINE Patch TRDERM SCH (10:28)
--- NOTE | 2020-08-22 16:20 | PCM.DCSUM1 ---
Discharge Summary - Hospital Course Free Text/Narrative:: 70 year old female with copd on home o2 with 4 week hx of worsening breathing and coughing and wheezing. Assessment: Acute on chronic hypoxic respiratory failure COPD exacerbation Type 2 diabetes with hyperglycemia Nephrolithiasis Obstructive sleep apnea Heart failure with the resolved ejection fraction Morbid obesity -BMI 41.7 Tobacco use disorder 1. Patient has been on home 2 L. Pulse ox. Oxygen therapy to keep saturation greater than 92% 2. Chest x-ray showed -no acute change. Continue prednisone 30 mg daily with tapering. will discontinue ceftriaxone. Inhalers 3. Diabetic diet. will resume Metformin 1000 mg twice daily and decreased tresiba to 58 units daily from 64. Insulin sliding scale 4. Follow with PCP and urology 5. Follow-up with the manager infrastructure for sleep study 6. Presumed heart failure is stable -chest x-ray no pulmonary edema. proBNP 7. Counseling for smoking cessation Today patient does not have any complaints. Denies headache, dizziness, nausea, vomiting, or dysuria. Her shortness of breath improved. Blood pressure is not well controlled. Blood pressure medication was adjusted. All other vital signs are stable and acceptable. She is on 2 L oxygen. Continue home oxygen 2 L. Continue PT OT. Patient refused to go any facilities and the home health. PT OT okay to home. She will be discharged home today to follow with PCP in 3 days, manager infrastructure within 1 week. Repeat CBC, CMP and electrolytes in 3 days. Creatinine 1.1 today. Make sure creatinine come back to normal. Patient have anemia hemoglobin 10.7 today. Based on patient sugar level, I decreased Tresiba to 58 units daily from 64 units daily. Follow with PCP as soon as possible. Check blood sugar before each meal and at bedtime. Call PCP or go to the ER immediately if your blood sugar higher than 400 and less than 70. repeat blood tests CBC, CMP, and a electrolytes in [address] until approval from MD. Call PCP for medical issues. Diagnosis: Stroke: No - Discharge Data Discharge Date: 08/22/20 Discharge Disposition: Home, Self-Care 01 Condition: Fair - Referral to Home Health Primary Care Physician: Prerna Mccarthy MD - Patient Summary/Data Consults: Consultations 08/18/20 19:43 Consult to Diabetic Nurse Specialist [CONS] Routine Consult to Cotton Presser [CONS] Routine Recommended Follow-up Testing/Procedures: follow with PCP in 3 days, manager infrastructure within 1 week. Repeat CBC, CMP and electrolytes in 3 days. Creatinine 1.1 today. Make sure creatinine come back to normal. Patient have anemia hemoglobin 10.7 today. Based on patient sugar level, I decreased Tresiba to 58 units daily from 64 units daily. Follow with PCP as soon as possible. Check blood sugar before each meal and at bedtime. Call PCP or go to the ER immediately if your blood sugar higher than 400 and less than 70. repeat blood tests CBC, CMP, and a electrolytes in [address] until approval from MD. Call PCP for medical issues. - Patient Instructions Diet: Diabetic Diet Activity: As Tolerated Driving: Do Not Drive - Discharge Plan *PRESCRIPTION DRUG MONITORING PROGRAM REVIEWED*: Not Applicable *COPY OF PRESCRIPTION DRUG MONITORING REPORT IN PATIENT RUCHI: Not Applicable Prescriptions/Med Rec: Insulin Lispro [Humalog] See Protocol SUBCUT QIDACANDBED #10 ml amLODIPine [Norvasc] 5 mg PO DAILY #30 tablet predniSONE 5 mg PO DAILY #26 tablet Pantoprazole [ProTONIX] 40 mg PO ACBREAKFAST #15 tab.cr Insulin Degludec [Tresiba] 58 unit SQ BEDTIME #10 ml Home Medications: Home Meds Allopurinol [Zyloprim] 100 mg PO DAILY 04/18/15 [History] Aspirin [Sacha Chewable Aspirin] 81 mg PO DAILY 04/18/15 [History] Lovastatin 10 mg PO 1800 04/18/15 [History] Sertraline [Zoloft] 100 tab PO DAILY 04/29/18 [History] Fluticasone Propion/Salmeterol [Advair 250-50 Diskus] 1 each IH BID #1 disk.w.dev 05/02/18 [Rx] buPROPion [buPROPion XL] 150 mg PO DAILY 01/17/19 [History] Dextromethorphan/guaiFENesin [Robitussin DM] 10 ml PO Q4H PRN #20 cup 01/19/19 [Rx] Hydrocodone/Acetaminophen [Hydrocodone-Acetamin 5-325 mg] 1 - 2 each PO Q6HR PRN #20 tablet 05/17/19 [Rx] Albuterol/Ipratropium [DuoNeb 3.0-0.5 MG/3 ML] 3 ml .XX Q6H PRN #30 neb 01/10/20 [Rx] Codeine/guaiFENesin [Robitussin AC] 5 ml PO Q6H PRN #1 cup 01/10/20 [Rx] Insulin Degludec [Tresiba] 58 unit SQ BEDTIME #10 ml 08/22/20 [Rx] Pantoprazole [ProTONIX] 40 mg PO ACBREAKFAST #15 tab.cr 08/22/20 [Rx] amLODIPine [Norvasc] 5 mg PO DAILY #30 tablet 08/22/20 [Rx] predniSONE 5 mg PO DAILY #26 tablet 08/22/20 [Rx] Oxygen Therapy Mode: Nasal Cannula Oxygen Flow Rate (L/min): 2 Maintain SpO2% greater than: 92 Patient Handouts: Chronic Obstructive Pulmonary Disease Exacerbation, [id number]-[id number], Home Oxygen Use, Adult, Steps to Quit Smoking Referrals: Prerna Mccarthy MD [Primary Care Provider] - 08/27/20 9:30 am (Please come at 09:00 to register.) manager infrastructure, within one week [Other] - Discharge Summary/Plan Comment DC Time >30 min.: Yes - General Info Date of Service: 08/22/20 Admission Dx/Problem (Free Text: copd/bronchitis Subjective Update: Patient does not have any new complaints. Denies nausea, vomiting, fever, or chills. Blood pressure is not well controlled. Her BP meds were adjusted. She is on 2 L. She has been on 2 L at home. - Review of Systems General: Reports: No Symptoms HEENT: Reports: No Symptoms Pulmonary: Reports: Shortness of Breath Cardiovascular: Reports: No Symptoms Gastrointestinal: Reports: No Symptoms Genitourinary: Reports: No Symptoms Musculoskeletal: Reports: No Symptoms Skin: Reports: No Symptoms Neurological: Reports: No Symptoms Psychiatric: Reports: No Symptoms - Patient Data Vitals - Most Recent: Last Vital Signs Temp 36.8 C 08/22/20 11:32 Pulse 78 08/22/20 11:32 Resp 20 08/22/20 11:32 BP 156/59 H 08/22/20 11:32 Pulse Ox 94 L 08/22/20 11:32 Weight - Most Recent: 106.231 kg I&O - Last 24 hours: Intake & Output 08/22/20 08/22/20 08/22/20 06:59 14:59 22:59 Intake Total 600 120 Output Total 1000 Balance -400 120 Lab Results - Last 24 hrs: Laboratory Results - last 24 hr 08/21/20 08/21/20 08/22/20 Range/Units 16:55 20:34 06:33 WBC (3.98-10.04) K/mm3 RBC (3.98-5.22) M/mm3 Hgb (11.2-15.7) gm/dl Hct (34.1-44.9) % MCV (79.4-94.8) fl MCH (25.6-32.2) pg MCHC (32.2-35.5) g/dl RDW Std Deviation (36.4-46.3) fL Plt Count (182-369) K/mm3 MPV (9.4-12.3) fl Neut % (Auto) (34.0-71.1) % Lymph % (Auto) (19.3-51.7) % Lares % (Auto) (4.7-12.5) % Eos % (Auto) (0.7-5.8) Baso % (Auto) (0.1-1.2) % Neut # (Auto) (1.56-6.13) K/mm3 Lymph # (Auto) (1.18-3.74) K/mm3 Lares # (Auto) (0.24-0.36) K/mm3 Eos # (Auto) (0.04-0.36) K/mm3 Baso # (Auto) (0.01-0.08) K/mm3 Manual Slide Review Sodium (136-145) mEq/L Potassium (3.5-5.1) mEq/L Chloride (98-107) mEq/L Carbon Dioxide (21-32) mEq/L Anion Gap (5-15) BUN (7-18) mg/dL Creatinine (0.55-1.02) mg/dL Est Cr Clr Drug Dosing mL/min Estimated GFR (MDRD) (>60) mL/min BUN/Creatinine Ratio (14-18) Glucose (80-115) mg/dL POC Glucose 164 H 207 H 55 L (70-99) mg/dL Hemoglobin A1c ( - 5.6) % Calcium (8.5-10.1) mg/dL Total Bilirubin (0.2-1.0) mg/dL AST (15-37) U/L ALT (14-59) U/L Alkaline Phosphatase (46-116) U/L NT-Pro-B Natriuret Pep (0-125) pg/mL Total Protein (6.4-8.2) g/dl Albumin (3.4-5.0) g/dl Globulin gm/dL Albumin/Globulin Ratio (1-2) 08/22/20 08/22/20 08/22/20 Range/Units 07:02 07:43 07:45 WBC (3.98-10.04) K/mm3 RBC (3.98-5.22) M/mm3 Hgb (11.2-15.7) gm/dl Hct (34.1-44.9) % MCV (79.4-94.8) fl MCH (25.6-32.2) pg MCHC (32.2-35.5) g/dl RDW Std Deviation (36.4-46.3) fL Plt Count (182-369) K/mm3 MPV (9.4-12.3) fl Neut % (Auto) (34.0-71.1) % Lymph % (Auto) (19.3-51.7) % Lares % (Auto) (4.7-12.5) % Eos % (Auto) (0.7-5.8) Baso % (Auto) (0.1-1.2) % Neut # (Auto) (1.56-6.13) K/mm3 Lymph # (Auto) (1.18-3.74) K/mm3 Lares # (Auto) (0.24-0.36) K/mm3 Eos # (Auto) (0.04-0.36) K/mm3 Baso # (Auto) (0.01-0.08) K/mm3 Manual Slide Review Sodium (136-145) mEq/L Potassium (3.5-5.1) mEq/L Chloride (98-107) mEq/L Carbon Dioxide (21-32) mEq/L Anion Gap (5-15) BUN (7-18) mg/dL Creatinine (0.55-1.02) mg/dL Est Cr Clr Drug Dosing mL/min Estimated GFR (MDRD) (>60) mL/min BUN/Creatinine Ratio (14-18) Glucose (80-115) mg/dL POC Glucose 53 L* 114 H (70-99) mg/dL Hemoglobin A1c 6.5 H ( - 5.6) % Calcium (8.5-10.1) mg/dL Total Bilirubin (0.2-1.0) mg/dL AST (15-37) U/L ALT (14-59) U/L Alkaline Phosphatase (46-116) U/L NT-Pro-B Natriuret Pep (0-125) pg/mL Total Protein (6.4-8.2) g/dl Albumin (3.4-5.0) g/dl Globulin gm/dL Albumin/Globulin Ratio (1-2) 08/22/20 08/22/20 08/22/20 Range/Units 07:45 07:45 07:45 WBC 9.72 (3.98-10.04) K/mm3 RBC 3.80 L (3.98-5.22) M/mm3 Hgb 10.7 L (11.2-15.7) gm/dl Hct 37.2 (34.1-44.9) % MCV 97.9 H (79.4-94.8) fl MCH 28.2 (25.6-32.2) pg MCHC 28.8 L (32.2-35.5) g/dl RDW Std Deviation 48.0 H (36.4-46.3) fL Plt Count 203 (182-369) K/mm3 MPV 9.6 (9.4-12.3) fl Neut % (Auto) 69.2 (34.0-71.1) % Lymph % (Auto) 19.5 (19.3-51.7) % Lares % (Auto) 9.2 (4.7-12.5) % Eos % (Auto) 1.0 (0.7-5.8) Baso % (Auto) 0.4 (0.1-1.2) % Neut # (Auto) 6.72 H (1.56-6.13) K/mm3 Lymph # (Auto) 1.90 (1.18-3.74) K/mm3 Lares # (Auto) 0.89 H (0.24-0.36) K/mm3 Eos # (Auto) 0.10 (0.04-0.36) K/mm3 Baso # (Auto) 0.04 (0.01-0.08) K/mm3 Manual Slide Review Normal smear Sodium 144 (136-145) mEq/L Potassium 4.3 (3.5-5.1) mEq/L Chloride 106 (98-107) mEq/L Carbon Dioxide 32 (21-32) mEq/L Anion Gap 10.3 (5-15) BUN 22 H (7-18) mg/dL Creatinine 1.1 H (0.55-1.02) mg/dL Est Cr Clr Drug Dosing 39.37 mL/min Estimated GFR (MDRD) 49 (>60) mL/min BUN/Creatinine Ratio 20.0 H (14-18) Glucose 119 H (80-115) mg/dL POC Glucose (70-99) mg/dL Hemoglobin A1c ( - 5.6) % Calcium 8.7 (8.5-10.1) mg/dL Total Bilirubin 0.2 (0.2-1.0) mg/dL AST 15 (15-37) U/L ALT 27 (14-59) U/L Alkaline Phosphatase 48 (46-116) U/L NT-Pro-B Natriuret Pep 430 H (0-125) pg/mL Total Protein 6.5 (6.4-8.2) g/dl Albumin 3.1 L (3.4-5.0) g/dl Globulin 3.4 gm/dL Albumin/Globulin Ratio 0.9 L (1-2) 08/22/20 Range/Units 11:29 WBC (3.98-10.04) K/mm3 RBC (3.98-5.22) M/mm3 Hgb (11.2-15.7) gm/dl Hct (34.1-44.9) % MCV (79.4-94.8) fl MCH (25.6-32.2) pg MCHC (32.2-35.5) g/dl RDW Std Deviation (36.4-46.3) fL Plt Count (182-369) K/mm3 MPV (9.4-12.3) fl Neut % (Auto) (34.0-71.1) % Lymph % (Auto) (19.3-51.7) % Lares % (Auto) (4.7-12.5) % Eos % (Auto) (0.7-5.8) Baso % (Auto) (0.1-1.2) % Neut # (Auto) (1.56-6.13) K/mm3 Lymph # (Auto) (1.18-3.74) K/mm3 Lares # (Auto) (0.24-0.36) K/mm3 Eos # (Auto) (0.04-0.36) K/mm3 Baso # (Auto) (0.01-0.08) K/mm3 Manual Slide Review Sodium (136-145) mEq/L Potassium (3.5-5.1) mEq/L Chloride (98-107) mEq/L Carbon Dioxide (21-32) mEq/L Anion Gap (5-15) BUN (7-18) mg/dL Creatinine (0.55-1.02) mg/dL Est Cr Clr Drug Dosing mL/min Estimated GFR (MDRD) (>60) mL/min BUN/Creatinine Ratio (14-18) Glucose (80-115) mg/dL POC Glucose 94 (70-99) mg/dL Hemoglobin A1c ( - 5.6) % Calcium (8.5-10.1) mg/dL Total Bilirubin (0.2-1.0) mg/dL AST (15-37) U/L ALT (14-59) U/L Alkaline Phosphatase (46-116) U/L NT-Pro-B Natriuret Pep (0-125) pg/mL Total Protein (6.4-8.2) g/dl Albumin (3.4-5.0) g/dl Globulin gm/dL Albumin/Globulin Ratio (1-2) [place] Results - Last 24 hrs: Microbiology 08/18/20 20:24 Aerobic Blood Culture - Preliminary Blood NO GROWTH AFTER 3 DAYS Anaerobic Blood Culture - Preliminary NO GROWTH AFTER 3 DAYS Med Orders - Current: Current Medications Acetaminophen (Acetaminophen 325 Mg Tab) 650 mg PO Q4H PRN PRN Reason: Pain Last Admin: 08/21/20 14:28 Dose: 650 mg Documented by: Hydrocodone Bitart/Acetaminophen (Acetaminophen/Hydrocodone 325-5 Mg Tab) 1 - 2 tab PO Q6H PRN PRN Reason: Pain Last Admin: 08/22/20 10:04 Dose: 1 tab Documented by: Albuterol/Ipratropium (Albuterol/Ipratropium 3.0-0.5 Mg/3 Ml Neb Soln) 3 ml NEB Q6H PRN PRN Reason: Wheezing Last Admin: 08/20/20 13:30 Dose: 3 ml Documented by: Allopurinol (Allopurinol 100 Mg Tab) 100 mg PO DAILY [facility] Last Admin: 08/22/20 09:56 Dose: 100 mg Documented by: Amlodipine Besylate (Amlodipine 5 Mg Tab) 5 mg PO DAILY [facility] Aspirin (Aspirin 81 Mg Tab.Ec) 81 mg PO DAILY [facility] Last Admin: 08/22/20 09:56 Dose: 81 mg Documented by: Benzocaine/Menthol (Benzocaine/Cetylpyridinium/Menthol Lozenge) 1 lozenge MUCMEM Q1H PRN PRN Reason: Sore Throat Last Admin: 08/20/20 18:00 Dose: 1 lozenge Documented by: Bupropion HCl (Bupropion 150 Mg Tab.Er) 150 mg PO DAILY [facility] Last Admin: 08/22/20 09:56 Dose: 150 mg Documented by: Enoxaparin Sodium (Enoxaparin 40 Mg/0.4 Ml Syringe) 40 mg SUBCUT DAILY [facility] Last Admin: 08/22/20 09:55 Dose: 40 mg Documented by: Guaifenesin/Phenylephrine HCl (Guaifenesin/Dextromethorphan 100-10 Mg/5 Ml Soln 5 Ml Cup) 10 ml PO Q4H PRN PRN Reason: Cough Last Admin: 08/21/20 22:20 Dose: 10 ml Documented by: Hydralazine HCl (Hydralazine 20 Mg/Ml Sdv) 10 mg IVPUSH Q4H PRN PRN Reason: Hypertension Sodium Chloride (Normal Saline) 1,000 mls @ 125 mls/hr IV ASDIRECTED [facility] Last Admin: 08/20/20 08:32 Dose: 125 mls/hr Documented by: Ceftriaxone Sodium 1 gm/ (Sodium Chloride) 100 mls @ 200 mls/hr IV Q24H [facility] Last Admin: 08/21/20 20:50 Dose: 200 mls/hr Documented by: Insulin Human Lispro (Insulin Lispro 100 Unit/Ml) 0 unit SUBCUT QIDACANDBED [facility]; Protocol Last Admin: 08/22/20 12:28 Dose: Not Given Documented by: Levalbuterol HCl (Levalbuterol Hcl 0.63 Mg/3 Ml Neb) 0.63 mg NEB Q6HRRT PRN PRN Reason: Shortness of Breath Loperamide HCl (Loperamide 2 Mg Cap) 2 mg PO Q6H PRN PRN Reason: Diarrhea Last Admin: 08/21/20 14:29 Dose: 2 mg Documented by: Magnesium Hydroxide (Magnesium Hydroxide 400 Mg/5 Ml Susp 30 Ml Cup) 30 ml PO Q12H PRN PRN Reason: Constipation Metformin HCl (Metformin 500 Mg Tab) 1,000 mg PO BIDMEALS [facility] Last Admin: 08/22/20 06:44 Dose: 1,000 mg Documented by: Miscellaneous Information (Remove And Replace Nicotine Patch) 1 ea TRDERM DAILY [facility] Last Admin: 08/22/20 10:28 Dose: 1 ea Documented by: Mometasone Furoate/Formoterol Fumar (Formoterol/Mometasone 200-5 Mcg 8.8 Gm Inhaler) 0 puff IH BID [facility] Last Admin: 08/22/20 09:16 Dose: 2 puff Documented by: Nicotine (Nicotine 7 Mg/24 Hr Patch) 7 mg TRDERM DAILY [facility] Last Admin: 08/22/20 09:55 Dose: 7 mg Documented by: Nicotine Polacrilex (Nicotine Polacrilex 2 Mg Gum) 2 mg CHEW Q2H PRN PRN Reason: smoking cessation Pantoprazole Sodium (Pantoprazole 40 Mg Tab.Cr) 40 mg PO ACBREAKFAST [facility] Last Admin: 08/22/20 06:44 Dose: 40 mg Documented by: Tresiba Flextouch Pens 100 U/Ml Patient's Own Med 0 each SUBCUT QPM [facility] Last Admin: 08/21/20 18:15 Dose: 64 each Documented by: Prednisone (Prednisone 10 Mg Tab) 30 mg PO DAILY [facility] Stop: 08/23/20 09:01 Prednisone (Prednisone 10 Mg Tab) 25 mg PO DAILY [facility] Stop: 08/24/20 09:01 Prednisone (Prednisone 20 Mg Tab) 20 mg PO DAILY [facility] Stop: 08/25/20 09:01 Prednisone (Prednisone 5 Mg Tab) 15 mg PO DAILY [facility] Stop: 08/26/20 09:01 Prednisone (Prednisone 10 Mg Tab) 10 mg PO DAILY [facility] Stop: 08/27/20 09:01 Prednisone (Prednisone 5 Mg Tab) 5 mg PO DAILY [facility] Stop: 08/28/20 09:01 Sertraline HCl (Sertraline 50 Mg Tab) 100 mg PO DAILY [facility] Last Admin: 08/22/20 09:56 Dose: 100 mg Documented by: Simvastatin (Simvastatin 10 Mg Tab) 5 mg PO BEDTIME [facility] Last Admin: 08/21/20 20:49 Dose: 5 mg Documented by: Sodium Chloride (Sodium Chloride 0.9% 10 Ml Syringe) 10 ml FLUSH ASDIRECTED PRN PRN Reason: Keep Vein Open Discontinued Medications Albuterol/Ipratropium (Albuterol/Ipratropium 3.0-0.5 Mg/3 Ml Neb Soln) 3 ml NEB ONETIME ONE Stop: 08/18/20 16:40 Last Admin: 08/18/20 17:01 Dose: 3 ml Documented by: Albuterol/Ipratropium (Albuterol/Ipratropium 3.0-0.5 Mg/3 Ml Neb Soln) 3 ml NEB ONETIME ONE Stop: 08/18/20 18:06 Last Admin: 08/18/20 18:28 Dose: 3 ml Documented by: Albuterol/Ipratropium (Albuterol/Ipratropium 3.0-0.5 Mg/3 Ml Neb Soln) 3 ml NEB Q4H PRN PRN Reason: Shortness Of Breath/wheezing Allopurinol (Allopurinol 300 Mg Tab) 300 mg PO DAILY [facility] Last Admin: 08/19/20 11:44 Dose: Not Given Documented by: Amlodipine Besylate (Amlodipine 5 Mg Tab) 5 mg PO DAILY [facility] Amlodipine Besylate (Amlodipine 2.5 Mg Tab) 2.5 mg PO DAILY [facility] Last Admin: 08/22/20 09:57 Dose: 2.5 mg Documented by: Magnesium Sulfate/Dextrose 1 (gm/ Premix) 100 mls @ 100 mls/hr IV Q1H [facility] Stop: 08/19/20 12:59 Last Admin: 08/19/20 13:26 Dose: 100 mls/hr Documented by: Insulin Glargine (Insulin Glarg,Human.Rec.Analog 100 Unit/Ml) 73 unit SUBCUT DAILY [facility] Insulin Glargine (Insulin Glarg,Human.Rec.Analog 100 Unit/Ml) 64 unit SUBCUT 1800 [facility] Insulin Human Lispro (Insulin Lispro 100 Unit/Ml) 0 unit SUBCUT QIDACANDBED [facility]; Protocol Last Admin: 08/22/20 12:35 Dose: Not Given Documented by: Methylprednisolone Sodium Succinate (Methylprednisolone Sodium Succinate 125 Mg/2 Ml Sdv) 125 mg IVPUSH ONETIME ONE Stop: 08/18/20 16:40 Last Admin: 08/18/20 16:48 Dose: 125 mg Documented by: Non-Formulary Medication (Glipizide) 10 mg PO BIDMEALS [facility] Prednisone (Prednisone 20 Mg Tab) 50 mg PO DAILY [facility] Last Admin: 08/20/20 08:33 Dose: 50 mg Documented by: Prednisone (Prednisone 20 Mg Tab) 40 mg PO DAILY [facility] Stop: 08/21/20 09:01 Last Admin: 08/21/20 09:20 Dose: 40 mg Documented by: Prednisone (Prednisone 10 Mg Tab) 35 mg PO DAILY [facility] Stop: 08/22/20 09:01 Last Admin: 08/22/20 09:56 Dose: 35 mg Documented by: Sodium Chloride (Sodium Chloride 0.9% 10 Ml Syringe) 10 ml FLUSH ASDIRECTED PRN PRN Reason: Keep Vein Open Last Admin: 08/18/20 16:42 Dose: 10 ml Documented by: Trazodone HCl (Trazodone 50 Mg Tab) 50 mg PO ONETIME ONE Stop: 08/20/20 20:05 Last Admin: 08/20/20 21:56 Dose: 50 mg Documented by: - Exam Physical Findings Comments:: General: Alert, Oriented HEENT: Pupils Equal, Pupils Reactive, EOMI, Mucous Membr. Moist/[place] Neck: Supple Lungs: Diminished breathing sounds bilaterally, Normal Respiratory Effort Cardiovascular: Regular Rate, Regular Rhythm GI/Abdominal Exam: Normal Bowel Sounds, Soft, Non-Tender, No Organomegaly, No Distention, No Abnormal Bruit, No Mass, Pelvis Stable (Female) Exam: Deferred Back Exam: Normal Inspection, Full Range of Motion Extremities: Normal Inspection, Normal Range of Motion, Non-Tender, No Pedal Edema, Normal Capillary Refill Peripheral Pulses: 1+: Carotid (L), Carotid (R) Skin: Warm, Dry, Intact Wound/Incisions: Healing Well Neurological: No New Focal Deficit Psy/Mental Status: Alert, Normal Affect, Normal Mood
[2020-08-22 16:34] VITALS: BP 151/69; PULSE 88
[2020-08-23] MEDS ORDERED: predniSONE 10 MG Tab PO SCH (09:00)
[2020-08-23] MEDS ORDERED: amLODIPine 5 MG Tab PO SCH (09:00)
[2020-08-24] MEDS ORDERED: predniSONE 10 MG Tab PO SCH (09:00)
[2020-08-25] MEDS ORDERED: predniSONE 20 MG Tab PO SCH (09:00)
[2020-08-26] MEDS ORDERED: predniSONE 5 MG Tab PO SCH (09:00)
[2020-08-27] MEDS ORDERED: predniSONE 10 MG Tab PO SCH (09:00)
[2020-08-28] MEDS ORDERED: predniSONE 5 MG Tab PO SCH (09:00)
== END 2020-08-22 17:05 | disposition home or self-care (01) | DRG 189 ==
LOC: JD.ED 16:14 → JD.MS 19:44
PROVIDERS: ADMIT Pediatrics; ATTEND Pediatrics
DX: J96.21 Acute and chronic respiratory failure with hypoxia (principal); R09.02 Hypoxemia; J44.1 Chronic obstructive pulmonary disease with (acute) exacerbation; Z68.41 Body mass index [BMI] 40.0-44.9, adult; I10 Essential (primary) hypertension; H33.21 Serous retinal detachment, right eye; I13.0 Hypertensive heart and chronic kidney disease with heart failure and stage 1 through stage 4 chronic kidney disease, or unspecified chronic kidney disease; I50.32 Chronic diastolic (congestive) heart failure; E11.40 Type 2 diabetes mellitus with diabetic neuropathy, unspecified; E11.65 Type 2 diabetes mellitus with hyperglycemia; N20.0 Calculus of kidney; G47.33 Obstructive sleep apnea (adult) (pediatric); E66.01 Morbid (severe) obesity due to excess calories; F17.210 Nicotine dependence, cigarettes, uncomplicated; D64.9 Anemia, unspecified; H54.7 Unspecified visual loss; Z99.81 Dependence on supplemental oxygen; E78.00 Pure hypercholesterolemia, unspecified; G89.29 Other chronic pain; M54.9 Dorsalgia, unspecified; M10.9 Gout, unspecified; G43.909 Migraine, unspecified, not intractable, without status migrainosus; E11.42 Type 2 diabetes mellitus with diabetic polyneuropathy; N18.30 Chronic kidney disease, stage 3 unspecified; Z20.822 Contact with and (suspected) exposure to COVID-19; F41.9 Anxiety disorder, unspecified; F32.9 Major depressive disorder, single episode, unspecified; Z98.890 Other specified postprocedural states; Z79.82 Long term (current) use of aspirin; Z79.899 Other long term (current) drug therapy; Z79.52 Long term (current) use of systemic steroids; Z79.4 Long term (current) use of insulin; Z88.8 Allergy status to other drugs, medicaments and biological substances; Z87.442 Personal history of urinary calculi; Z87.01 Personal history of pneumonia (recurrent); Z90.49 Acquired absence of other specified parts of digestive tract; Z90.710 Acquired absence of both cervix and uterus
CPT/HCPCS: 0240U; 36415; 71045; 71046; 80053; 82947; 83036; 83605; 83735; 83880; 84100; 84484; 85025; 87040; 93005; 94640; 94760; 94761; 94762; 96374; 99285; 93010; 99284; A9270-GY; J0696; J1650; J1815-GY; J2930; J3475; J7030; J7512; J7620-GY